=== PATIENT | female | born 1940 | race Caucasian/White ===

== ENCOUNTER → 2017-02-03 | Outpatient (CLI) | payer MEDICARE, OTHER ==
[~2017-02-03] MED LIST: ASPI81 PO; HYDR-3533 PO; LISI-363 PO; LOVA20TA PO; VITA100020 PO
[2017-02-03 09:19] LABS: ANION GAP 7 MEQ/L (5-15); AST (GOT) 20 U/L (15-37); BICARBONATE 30.3 MEQ/L (21.0-32.0); BLOOD UREA NITROGEN 12 MG/DL (7-18); CHLORIDE 98 MEQ/L (98-107); GLOMERULAR FILTRATION RATE 70 ML/MIN (>89); GLUCOSE,FASTING 86 MG/DL (74-99); POTASSIUM 4.1 MEQ/L (3.5-5.1); SODIUM (NA) 135 MEQ/L (136-145)
[2017-02-03 09:30] LABS: ALKALINE PHOSPHATASE 84 U/L (45-117); ALT (GPT) 23 U/L (10-53); HDL CHOLESTEROL 79.9 MG/DL (40.0-60.0); LDL CHOLESTEROL 87 MG/DL (0-99); TOTAL BILIRUBIN ADULT 0.7 MG/DL (0.2-1.0)
[2017-02-03 09:55] LABS: WESTERGREN SEDIMENTATION RATE 4 mm/hr (0-30)
[2017-02-03 10:08] LABS: AUTOMATED NEUTROPHIL # 3.9 TH/MM3 (1.8-7.7); BASOPHIL % 0.7 % (0.0-2.0); EOSINOPHIL # 0.9 TH/MM3 (0-0.4); EOSINOPHIL % 14.8 % (0.0-4.0); HEMO FLAGS DIFF FINAL; LYMPH % 12.9 % (9.0-44.0); LYMPHOCYTE # 0.8 TH/MM3 (1.0-4.8); MEAN CELL VOLUME 85.9 FL (80.0-100.0); MEAN CORPUSCULAR HEMOGLOBIN 29.5 PG (27.0-34.0); MEAN CORPUSCULAR HGB CONC 34.4 % (32.0-36.0); MONO % 8.3 % (0.0-8.0); NEUT % 63.3 % (16.0-70.0); PLATELET COUNT 237 TH/MM3 (150-450); RED BLOOD COUNT 4.66 MIL/MM3 (4.00-5.30); RED CELL DISTRIBUTION WIDTH 13.1 % (11.6-17.2); WHITE BLOOD COUNT 6.2 TH/MM3 (4.0-11.0)
[2017-02-03 16:57] LABS: HEMOGLOBIN A1a 1.2 %; HEMOGLOBIN A1b 1.5 %; HEMOGLOBIN LA1C 1.9 %; HEMOGLOBIN P3 3.7 %
== END ==
LOC: PLAB 07:13
PROVIDERS: ATTEND Family Medicine
DX: E78.5 Hyperlipidemia, unspecified (principal); I10 Essential (primary) hypertension
CPT/HCPCS: 36415; 80053; 80061; 83036; 84443; 85025; 85652; 86038

== ENCOUNTER → 2017-08-18 | Outpatient (CLI) | payer MEDICARE, OTHER ==
[2017-08-18 09:44] LABS: BASOPHIL # 0.1 TH/MM3 (0-0.2); EOSINOPHIL # 0.1 TH/MM3 (0-0.4); EOSINOPHIL % 2.8 % (0.0-4.0); HEMATOCRIT 38.9 % (35.0-46.0); HEMOGLOBIN 13.4 GM/DL (11.6-15.3); LYMPH % 24.7 % (9.0-44.0); LYMPHOCYTE # 1.2 TH/MM3 (1.0-4.8); MEAN CELL VOLUME 86.2 FL (80.0-100.0); MEAN CORPUSCULAR HEMOGLOBIN 29.8 PG (27.0-34.0); MEAN CORPUSCULAR HGB CONC 34.6 % (32.0-36.0); MEAN PLATELET VOLUME 8.6 FL (7.0-11.0); MONO % 8.7 % (0.0-8.0); MONOCYTE # 0.4 TH/MM3 (0-0.9); NEUT % 62.8 % (16.0-70.0); PLATELET COUNT 189 TH/MM3 (150-450); RED BLOOD COUNT 4.51 MIL/MM3 (4.00-5.30); RED CELL DISTRIBUTION WIDTH 13.1 % (11.6-17.2); WHITE BLOOD COUNT 4.9 TH/MM3 (4.0-11.0)
[2017-08-18 09:54] LABS: ALBUMIN 3.8 GM/DL (3.4-5.0); ALT (GPT) 21 U/L (10-53); AST (GOT) 17 U/L (15-37); BICARBONATE 28.8 MEQ/L (21.0-32.0); BLOOD UREA NITROGEN 14 MG/DL (7-18); CALCIUM 8.9 MG/DL (8.5-10.1); CHLORIDE 101 MEQ/L (98-107); CHOLESTEROL 203 MG/DL (120-200); CREATININE 0.76 MG/DL (0.50-1.00); GLOMERULAR FILTRATION RATE 74 ML/MIN (>89); GLUCOSE,FASTING 88 MG/DL (74-99); SODIUM (NA) 137 MEQ/L (136-145); TRIGLYCERIDES 99 MG/DL (42-150)
[2017-08-18 10:04] LABS: ALKALINE PHOSPHATASE 82 U/L (45-117); CHOLESTEROL/ HDL RATIO 2.41 RATIO; HDL CHOLESTEROL 84.1 MG/DL (40.0-60.0); LDL CHOLESTEROL 99 MG/DL (0-99); TOTAL BILIRUBIN ADULT 0.7 MG/DL (0.2-1.0); TOTAL PROTEIN 7.3 GM/DL (6.4-8.2)
== END ==
LOC: PLAB 06:55
PROVIDERS: ATTEND Family Medicine
DX: E78.5 Hyperlipidemia, unspecified (principal); I69.90 Unspecified sequelae of unspecified cerebrovascular disease; I10 Essential (primary) hypertension
CPT/HCPCS: 36415; 80053; 80061; 84443; 85025

== ENCOUNTER 2017-12-04 11:24 | Inpatient (IN) | payer MEDICARE, OTHER ==
[~2017-12-04] VITALS: Ht 162.6 cm; Wt 77.3 kg
[2017-12-04] VITALS (36 sets, daily range): BP systolic 121–160; BP diastolic 57–99; PULSE 104–137; RESP 14–42; TEMP 98.9–103.7; O2SAT 93–100
[2017-12-04] MEDS ORDERED: SODIUM CHLOR 0.9% 1000 ML INJ 1,000 ML IV SCH (11:26)
[2017-12-04] MEDS ORDERED: SODIUM CHLORIDE 0.9% FLUSH 10 ML FLUSH IV FLUSH PRN (11:30)
--- NOTE | 2017-12-04 11:43 | PD ---
HPI Chief Complaint: Altered mental status Time Seen by Provider: 11:26 Travel History International Travel<30 days: No Contact w/Intl Traveler<30days: No History of Present Illness HPI 77-year-old female patient presents to the ER today brought in by EMS, friend state that they last saw her at 7 PM last night, she was found down, disoriented , staring off to the left, not answering questions. I am not able to get much further history from her. She has a fever of 101 in the ER. I did not see any other obvious injuries. Modifying Factors: None Associated Signs & Symptoms: Altered mental status Risk Factors: Elderly PFSH Past Medical History Hx Anticoagulant Therapy: Yes (81 MG. ASA DAILY) Heart Rhythm Problems: No Cancer: No Cardiovascular Problems: No High Cholesterol: No Chest Pain: No Congestive Heart Failure: No Cerebrovascular Accident: Yes (TIA) Diabetes: No Endocrine: No Gastrointestinal Disorders: No Genitourinary: No Hiatal Hernia: No Hypertension: Yes Immune Disorder: No Implanted Vascular Access Dvce: No Musculoskeletal: No Neurologic: Yes (STROKE MAR 2014) Psychiatric: No Reproductive: No Respiratory: No Immunizations Current: No Thyroid Disease: No Past Surgical History AICD: No Body Medical Devices: breast augmentation Eye Surgery: Yes (catarcts) Gynecologic Surgery: Yes (vaginal delivery) Joint Replacement: No Pacemaker: No Other Surgery: Yes Social History Alcohol Use: Yes (2 BEERS /DAY) Tobacco Use: Yes (5 CIG DAY ) Substance Use: No Allergies-Medications (Allergen,Severity, Reaction): Coded Allergies: doxycycline (Unverified Allergy, Severe, 12/04/17) ALTERED MENTAL STATUS minocycline (Unverified Allergy, Severe, 12/04/17) ALTERED MENTAL STATUS tigecycline (Unverified Allergy, Severe, 12/04/17) ALTERED MENTAL STATUS Reported Meds & Prescriptions Reported Meds & Active Scripts Active Active Prescriptions or Reported Medications Unobtainable Review of Systems ROS Limitations: Altered Mental Status Physical Exam Exam Limitations: Altered Mental Status Narrative GENERAL: Well-developed elderly female patient currently in moderate distress. She is awake, alert, but fairly disoriented and not able to answer questions. SKIN: Focused skin assessment warm/dry. HEAD: Atraumatic. Normocephalic. EYES: Pupils equal and round. No scleral icterus. No injection or drainage. Staring to the left. ENT: No nasal bleeding or discharge. Mucous membranes pink and moist. NECK: Trachea midline. No JVD. CARDIOVASCULAR: Regular rate and rhythm. No murmur appreciated. RESPIRATORY: No accessory muscle use. Clear to auscultation. Breath sounds equal bilaterally. GASTROINTESTINAL: Abdomen soft, non-tender, nondistended. Hepatic and splenic margins not palpable. MUSCULOSKELETAL: No obvious deformities. No clubbing. No cyanosis. No edema. NEUROLOGICAL: Awake and alert, disoriented. Not able to follow commands or do further neurological testing h. PSYCHIATRIC: Disoriented, not able to give me history, poor judgment due to disorientation. Data Data Last Documented VS Vital Signs Date Time Temp Pulse Resp B/P (MAP) Pulse Ox O2 Delivery O2 Flow Rate FiO2 12/04/17 13:00 101.7 134 22 141/79 (99) 100 Nasal Cannula 2.00 Orders Orders Electrocardiogram (12/04/17 11:26) Ammonia (12/04/17 11:) Complete Blood Count With Diff (12/04/17 11:) Comprehensive Metabolic Panel (12/04/17 11:) Creatine Kinase (Cpk) (12/04/17 11:) Prothrombin Time / Inr (Pt) (12/04/17 11:) Act Partial Throm Time (Ptt) (12/04/17 11:) Troponin I (12/04/17:) Urinalysis - C+S If Indicated (12/04/17 11:26) Lactic Acid Sepsis Protocol (12/04/17 11:26) Blood Culture (12/04/17 11:) Chest, Single Ap (12/04/17 11:26) Ct Brain W/O Iv Contrast(Rout) (12/04/17 11:26) Blood Glucose (12/04/17 11:) Ecg Monitoring (12/04/17 11:) Iv Access Insert/Monitor (12/04/17 11:) Oximetry (12/04/17:) Urinary Catheter Insert/Apply (12/04/17 11:26) Sodium Chloride 0.9% Flush (Ns Flush) (12/04/17 11:30) Sodium Chlor 0.9% 1000 Ml Inj (Ns 1000 M (12/04/17 11:26) Drug Screen, Random Urine (12/04/17 11:26) Alcohol (Ethanol) (12/04/17 11:26) Influenzae A/B Antigen (12/04/17 11:26) Ceftriaxone Inj (Rocephin Inj) (12/04/17 11:44) Azithromycin Inj (Zithromax Inj) (12/04/17 11:44) Ct Thorax/ Chest W Iv Contrast (12/04/17 11:54) CKMB (12/04/17 11:34) CKMB% (12/04/17 11:34) Acetaminophen Supp (Tylenol Supp) (12/04/17 12:15) Iohexol 350 Inj (Omnipaque 350 Inj) (12/04/17 13:05) Heparin Inj (Heparin Inj) (12/04/17 13:30) Heparin Inj (Heparin Inj) (12/04/17 19:30) Heparin Inj (Heparin Inj) (12/04/17 19:30) Heparin-D5w 25,000 U/250 Ml (Heparin-D5w (12/04/17 14:00) Cbc No Diff, Includes Plts (12/07/17 06:00) Act Partial Throm Time (Ptt) (12/04/17 20:28) Occult Blood (Hemoccult) Stool (12/04/17 13:28) Aspirin Supp (Aspirin Supp) (12/04/17 13:45) Arterial Blood Gas (Abg) (12/04/17 13:50) Admit Order (Ed Use Only) (12/04/17 13:51) Labs Laboratory Tests Test 12/04/17 11:34 12/04/17 12:10 White Blood Count 15.9 TH/MM3 Red Blood Count 4.54 MIL/MM3 Hemoglobin 12.1 GM/DL Hematocrit 37.0 % Mean Corpuscular Volume 81.4 FL Mean Corpuscular Hemoglobin 26.7 PG Mean Corpuscular Hemoglobin Concent 32.8 % Red Cell Distribution Width 11.7 % Platelet Count 183 TH/MM3 Mean Platelet Volume 9.9 FL CBC Comment AUTO DIFF Differential Total Cells Counted 100 Neutrophils % (Manual) 82 % Band Neutrophils % 1 % Lymphocytes % 11 % Monocytes % 5 % Eosinophils % 1 % Neutrophils # (Manual) 13.2 TH/MM3 Differential Comment FINAL DIFF MANUAL Platelet Estimate NORMAL Platelet Morphology Comment NORMAL Prothrombin Time 11.7 SEC Prothromb Time International Ratio 1.2 RATIO Activated Partial Thromboplast Time 25.2 SEC Blood Urea Nitrogen 24 MG/DL Creatinine 0.75 MG/DL Random Glucose 128 MG/DL Total Protein 6.8 GM/DL Albumin 3.6 GM/DL Calcium Level 9.4 MG/DL Alkaline Phosphatase 91 U/L Aspartate Amino Transf (AST/SGOT) 51 U/L Alanine Aminotransferase (ALT/SGPT) 37 U/L Total Bilirubin 2.1 MG/DL Sodium Level 139 MEQ/L Potassium Level 3.7 MEQ/L Chloride Level 103 MEQ/L Carbon Dioxide Level 22.4 MEQ/L Anion Gap 14 MEQ/L Estimat Glomerular Filtration Rate 75 ML/MIN Lactic Acid Level 3.2 mmol/L Ammonia LESS THAN 10 MCMOL/L Total Creatine Kinase 223 U/L Creatine Kinase MB 14.2 NG/ML Creatine Kinase MB % 6.4 % Troponin I 8.67 NG/ML Ethyl Alcohol Level LESS THAN 3 MG/DL Urine Collection Type CLEAN CATCH Urine Color YELLOW Urine Turbidity CLEAR Urine pH 5.5 Urine Specific [place] GREATER/EQUAL 1.030 Urine Protein 100 mg/dL Urine Glucose (UA) NEG mg/dL Urine Ketones 40 mg/dL Urine Occult Blood TRACE Urine Nitrite NEG Urine Bilirubin NEG Urine Urobilinogen 0.2 MG/DL Urine Leukocyte Esterase NEG Urine RBC 0-3 /hpf Urine WBC 0-2 /hpf Urine Squamous Epithelial Cells 0-5 /hpf Urine Amorphous Sediment FEW Microscopic Urinalysis Comment CULT NOT INDICATED Urine Collection Time 12:10 Urine Opiates Screen NEG Urine Barbiturates Screen NEG Urine Amphetamines Screen NEG Urine Benzodiazepines Screen NEG Urine Cocaine Screen NEG Urine Cannabinoids Screen NEG MDM Medical Decision Making Medical Screen Exam Complete: Yes Emergency Medical Condition: Yes Medical Record Reviewed: Yes Interpretation(s) EKG shows sinus tachycardia rate 140 bpm with no signs of acute ST elevations or depressions. Laboratory Tests Test 12/04/17 11:34 12/04/17 12:10 White Blood Count 15.9 TH/MM3 (4.0-11.0) Mean Corpuscular Hemoglobin 26.7 PG (27.0-34.0) Neutrophils % (Manual) 82 % (16-70) Neutrophils # (Manual) 13.2 TH/MM3 (1.8-7.7) Prothrombin Time 11.7 SEC (9.8-11.6) Blood Urea Nitrogen 24 MG/DL (7-18) Random Glucose 128 MG/DL (74-106) Aspartate Amino Transf (AST/SGOT) 51 U/L (15-37) Total Bilirubin 2.1 MG/DL (0.2-1.0) Estimat Glomerular Filtration Rate 75 ML/MIN (>89) Lactic Acid Level 3.2 mmol/L (0.4-2.0) Ammonia LESS THAN 10 MCMOL/L Total Creatine Kinase 223 U/L (26-192) Creatine Kinase MB 14.2 NG/ML (0.5-3.6) Creatine Kinase MB % 6.4 % (0.0-4.0) Troponin I 8.67 NG/ML (0.02-0.05) Urine Protein 100 mg/dL (NEG-TRACE) Urine Ketones 40 mg/dL (NEG) Last [address] 12/04/17 1154 Signed Impressions: Service Date/Time: Monday, December 04, 2017 12:43 - CONCLUSION: Probable mild congestive failure with trace pleural effusions. No evidence for mass. Jean-Paul Hoffmann MD FACR Head CT 12/04/17 1126 Signed Impressions: Service Date/Time: Monday, December 04, 2017 12:37 - CONCLUSION: Stable brain appearance. No acute intracranial findings Anam Rojas MD Chest X-Ray 12/04/17 1126 Signed Impressions: Service Date/Time: Monday, December 04, 2017 11:27 - CONCLUSION: 1. Large central right hilar mass with volume loss. Contrasted CT chest recommended. Gideon Lin MD Differential Diagnosis Altered mental status: Metabolic issues versus dehydration versus sepsis versus acute intracranial injuries versus CVA Narrative Course Patient's lab work shows significant leukocytosis and initially her chest x-ray shows a questionable right mediastinal mass concerning for possible infiltrates , IV ceftriaxone and Zithromax was initiated as well as IV fluids out of concern for sepsis especially with her fevers. She was given Tylenol for fevers. CAT scan was ordered for further evaluation of the chest and did not show obvious infiltrates. CT the brain did not show any signs of acute intracranial processes. Lab work also returned showing elevated cardiac enzymes. EKG did not show any signs of ST changes. At this point, patient was given aspirin and heparin for concerns for non-ST elevation NC. Case was discussed with Dr. Meza of cardiology who would like her to be moved to the main hospital for possible further cardiology evaluation. Case was then discussed with Dr. Alcaraz who wanted me to get an ABG for evaluation of the altered mental status and considering that there is no clear source of sepsis. Aggregate critical care time was 45 minutes. Time to perform other separately billable procedures was not included in the critical care time. My time did not include minutes spent treating any other patients simultaneously or on activities that did not directly contribute to the patient's treatment. The services I provided to this patient were to treat and/or prevent clinically significant deterioration that could result in: ICH, septic shock, dysrhythmias , I provided critical care services requiring my management, as noted below: Chart data review, documentation time, medication orders and management, vital sign assessments/reviewing monitor data, ordering and reviewing lab tests, ordering and interpreting/reviewing x-rays and diagnostic studies, care of the patient and discussion of the patient with the admitting physicians. Procedures Procedure Narrative LUMBAR PUNCTURE: The patient was placed in the left lateral decubitus position. The lumbar area of the back was prepped with Betadine and sterilely draped. The L3 -- L4 interspace was infiltrated with 1% lidocaine plain. Number 20 gauge LP needle was placed in the interspace. Opening pressure deferred. Number 5 milliliters of clear CSF were obtained. Patient tolerated procedure well. Diagnosis Primary Impression: Altered mental status Additional Impressions: Severe sepsis Non-ST elevation NC (NSTEMI) Admitting Information Admitting Physician Requests: Admit Scripts Unable to Obtain Active Prescriptions or Reported Meds Oliver Silveira MD Dec 04, 2017 11:43
[2017-12-04 11:44] LABS: HEMOGLOBIN 12.1 GM/DL (11.6-15.3); MEAN CELL VOLUME 81.4 FL (80.0-100.0); MEAN CORPUSCULAR HEMOGLOBIN 26.7 PG (27.0-34.0); MEAN CORPUSCULAR HGB CONC 32.8 % (32.0-36.0); MEAN PLATELET VOLUME 9.9 FL (7.0-11.0); PLATELET COUNT 183 TH/MM3 (150-450); RED BLOOD COUNT 4.54 MIL/MM3 (4.00-5.30); RED CELL DISTRIBUTION WIDTH 11.7 % (11.6-17.2); WHITE BLOOD COUNT 15.9 TH/MM3 (4.0-11.0)
[2017-12-04] MEDS ORDERED: AZITHROMYCIN INJ 500 MG in SODIUM CHLOR 0.9% 250 ML INJ 250 ML IV STA (11:44)
[2017-12-04] MEDS ORDERED: cefTRIAXone INJ 2,000 MG in SODIUM CHLORIDE 0.9% INJ 100 ML IV STA (11:44)
--- NOTE | 2017-12-04 11:45 | RADRPT ---
EXAM DATE/TIME: 12/04/2017 11:27 [facility] COMPARISON: No previous studies available for comparison. INDICATIONS : Short of breath, altered mental status. MEDICAL HISTORY : Hypertension. Stroke. Smoker. SURGICAL HISTORY : ORIF humerus. ENCOUNTER: Initial ACUITY: 1 day PAIN SCORE: Non-responsive. LOCATION: chest FINDINGS: A single view of the chest demonstrates right hilar mass. There is volume loss on the right with atel ectasis in the right upper lobe. Left lung clear. Heart mildly enlarged The cardiomediastinal contour s are unremarkable. Osseous structures are intact. CONCLUSION: 1. Large central right hilar mass with volume loss. Contrasted CT chest recommended. Gideon Lin MD on December 04, 2017 at 11:42 Board Certified Radiologist. This report was verified electronically.
[2017-12-04 11:52] LABS: CHLORIDE 103 MEQ/L (98-107); SODIUM (NA) 139 MEQ/L (136-145)
[2017-12-04 11:55] LABS: CALCIUM 9.4 MG/DL (8.5-10.1)
[2017-12-04 11:56] LABS: ALBUMIN 3.6 GM/DL (3.4-5.0); BICARBONATE 22.4 MEQ/L (21.0-32.0); BLOOD UREA NITROGEN 24 MG/DL (7-18); GLUCOSE,RANDOM 128 MG/DL (74-106); INTERNATIONAL NORMALIZED RATIO 1.2 RATIO; PROTHROMBIN TIME - PATIENT 11.7 SEC (9.8-11.6)
[2017-12-04 11:59] LABS: ALT (GPT) 37 U/L (10-53); AST (GOT) 51 U/L (15-37); CREATININE 0.75 MG/DL (0.50-1.00); GLOMERULAR FILTRATION RATE 75 ML/MIN (>89)
[2017-12-04 12:00] LABS: TOTAL PROTEIN 6.8 GM/DL (6.4-8.2)
[2017-12-04 12:01] LABS: LACTIC ACID SEPSIS PROTOCOL 3.2 mmol/L (0.4-2.0)
[2017-12-04 12:02] LABS: ALKALINE PHOSPHATASE 91 U/L (45-117)
[2017-12-04 12:07] LABS: TOTAL BILIRUBIN ADULT 2.1 MG/DL (0.2-1.0)
[2017-12-04 12:09] LABS: TROPONIN I 8.67 NG/ML (0.02-0.05)
[2017-12-04 12:15] LABS: BANDS 1 % (0-6); LYMPHOCYTES 11 % (9-44); MONOCYTES 5 % (0-8); NEUTROPHIL # MANUAL DIFF 13.2 TH/MM3 (1.8-7.7); POLYS (SEG NEUTROPHILS) 82 % (16-70)
[2017-12-04] MEDS ORDERED: ACETAMINOPHEN 325 MG SUPP RECTAL ONE (12:15)
[2017-12-04 12:17] LABS: BLOOD, URINE TRACE (NEG); GLUCOSE,URINE NEG (NEG); KETONE, URINE 40 mg/dL (NEG); NITRITE,URINE NEG (NEG); PH, URINE 5.5 (5.0-8.5); URINE COLOR YELLOW (YELLW/STRAW); URINE LEUKOCYTE ESTERASE NEG (NEG)
[2017-12-04 12:20] LABS: BILIRUBIN, URINE NEG (NEG)
[2017-12-04 12:22] LABS: AMORPHOUS SEDIMENT, URINE FEW; RBC, URINE 0-3 /hpf (0-3); SQUAMOUS EPITHELIAL CELL URINE 0-5 /hpf (0-5); WBC, URINE 0-2 /hpf (0-5)
[2017-12-04] MEDS ORDERED: IOHEXOL 350 MG/ML 10 ML VIAL (for RAD DIAG) IVCONTRAST ONE (13:05)
--- NOTE | 2017-12-04 13:11 | RADRPT ---
EXAM DATE/TIME: 12/04/2017 12:43 [facility] COMPARISON: CHEST SINGLE AP, December 04, 2017, 11:27. INDICATIONS : Abnormal chest x-ray. Evaluate for a mass. IV CONTRAST: 60 cc Omnipaque 350 (iohexol) IV RADIATION DOSE: 7.39 CTDIvol (mGy) MEDICAL HISTORY : Hypertension. Stroke Cerebrovascular disease. SURGICAL HISTORY : None. ENCOUNTER: Initial ACUITY: 1 day PAIN SCALE: Non-responsive LOCATION: chest TECHNIQUE: Volumetric scanning of the chest was performed. Using automated exposure control and adjustment of t he mA and/or kV according to patient size, radiation dose was kept as low as reasonably achievable to obtain optimal diagnostic quality images. DICOM format image data is available electronically for review and comparison. Follow-up recommendations for detected pulmonary nodules are based at a minimum on nodule size and pa tient risk factors according to Fleischner Society Guidelines. FINDINGS: Small bilateral pleural effusions are evident with moderate cardiomegaly. There is no axillary adenopathy or mediastinal adenopathy. Abnormality on chest radiographs is cause d by scoliosis and rotation. The moderate coronary calcifications evident Upper abdominal contents are unremarkable. CONCLUSION: Probable mild congestive failure with trace pleural effusions. No evidence for mass. Jean-Paul Hoffmann MD FACR on December 04, 2017 at 13:06 Board Certified Radiologist. This report was verified electronically.
--- NOTE | 2017-12-04 13:13 | RADRPT ---
EXAM DATE/TIME: 12/04/2017 12:37 [facility] COMPARISON: CT BRAIN W/O CONTRAST, April 12, 2014, 9:16. INDICATIONS : Altered mental status. RADIATION DOSE: 37.09 CTDIvol (mGy) MEDICAL HISTORY : Stroke. Cerebrovascular disease. Hypertension. SURGICAL HISTORY : None. ENCOUNTER: Initial ACUITY: 1 day PAIN SCALE: Non-responsive LOCATION: cranial TECHNIQUE: Multiple contiguous axial images were obtained of the head. Using automated exposure control and adj ustment of the mA and/or kV according to patient size, radiation dose was kept as low as reasonably a chievable to obtain optimal diagnostic quality images. DICOM format image data is available electro nically for review and comparison. FINDINGS: CEREBRUM: The ventricles are normal for age. No evidence of midline shift, mass lesion, hemorrhage or acute in farction. No extra-axial fluid collections are seen. POSTERIOR FOSSA: The cerebellum and brainstem are intact. The 4th ventricle is midline. The cerebellopontine angle i s unremarkable. EXTRACRANIAL: The visualized portion of the orbits is intact. SKULL: The calvaria is intact. No evidence of skull fracture. CONCLUSION: Stable brain appearance. No acute intracranial findings Anam Rojas MD on December 04, 2017 at 13:04 Board Certified Radiologist. This report was verified electronically.
[2017-12-04] MEDS ORDERED: HEPARIN SODIUM - IV 10,000 UNITS/10 ML VIAL IV PUSH ONE (13:30)
[2017-12-04] MEDS ORDERED: ASPIRIN 300 MG SUPP RECTAL ONE (13:45)
[2017-12-04] MEDS ORDERED: CHLORHEXIDINE GLUCONATE 2 % 1 PACK (2 CLOTHS) TOP PRN (14:00)
[2017-12-04] MEDS ORDERED: BISACODYL 10 MG SUPP RECTAL PRN (14:00)
[2017-12-04] MEDS ORDERED: NURSING INFORMATION XX SCH (14:00)
[2017-12-04] MEDS: INSULIN NovoLIN REGULAR SUPPLEMENTAL SCALE SQ SCH ×3 (14:00→22:00)
[2017-12-04] MEDS ORDERED: SENNOSIDES 8.6 MG TAB PO PRN (14:00)
[2017-12-04] MEDS ORDERED: LACTULOSE SYRUP 20 GM/30 ML CUP PO PRN (14:00)
[2017-12-04] MEDS ORDERED: MAGNESIUM HYDROXIDE SUSP 30 ML CUP PO PRN (14:00)
[2017-12-04] MEDS ORDERED: HEPARIN-D5W 25,000 U/250 ML 250 ML IV SCH (14:00)
[2017-12-04] MEDS ORDERED: GLUCAGON 1 MG/ML VIAL OTHER PRN (14:00)
[2017-12-04] MEDS ORDERED: DEXTROSE 50% IN WATER 50 ML VIAL(D50) IV PUSH PRN (14:00)
[2017-12-04] MEDS ORDERED: SODIUM CHLOR 0.9% 1000 ML INJ 1,000 ML IV ONE (14:15)
[2017-12-04] MEDS: SODIUM CHLOR 0.9% 1000 ML INJ 1,000 ML IV SCH ×2 (15:08→17:43)
[2017-12-04] MEDS: VANCOMYCIN INJ 1,000 MG in SODIUM CHLOR 0.9% 250 ML INJ 250 ML IV SCH (15:09)
[2017-12-04 15:30] LABS: RBC TUBE #4 1 /MM3; SUPERNATE COLOR TUBE #1 CLEAR (CLEAR); WBC TUBE #4 0 /MM3 (0-10)
[2017-12-04] MEDS ORDERED: ACETAMINOPHEN 1000 MG/100 ML 65 ML IV ONE (15:30)
[2017-12-04 16:44] LABS: CSF LYMPHOCYTES 0 %; CSF NEUTROPHILS 0 %
--- NOTE | 2017-12-04 16:57 | HHI.HP ---
[facility] Service Critical Care Medicine Primary Care Physician Non-Staff Admission Diagnosis severe sepsis/NSTEMI Diagnosis: (1) Acute metabolic encephalopathy Diagnosis: Principal (2) Altered mental status Diagnosis: Principal (3) Severe sepsis Diagnosis: Principal (4) Non-ST elevation ND (NSTEMI) Diagnosis: Principal (5) Cardiomyopathy Diagnosis: Principal (6) Lactic acidemia Diagnosis: Principal (7) Hypertension Diagnosis: Secondary (8) Cerebrovascular accident (stroke) Chief Complaint: AMS, High fever NSTEMI Travel History International Travel<30 Days: No Contact w/Intl Traveler <30 Da: No Sepsis Criteria SIRS Criteria (2 or more): Temp > 100.9 or < 96.8, WBC > 42064, < 4000 or > 10 % bands Sepsis Criteria (SIRS+source): Infect source susp/known Severe Sepsis (+one): Lactate >2 Criteria Outcome: Meets severe sepsis criteria History of Present Illness 77-year-old female who is apparently very active at baseline, with past medical history significant for hypertension and previous TIA, tobacco abuse. She was seen last normal yesterday night at 7 PM. Her friends checked on her today morning and was found down, disoriented, staring off to the left, not answering questions. I am not able to get much further history from her. She has a fever of 101 in the ER, initially and then spiked to 103.7. ER workup included a CT scan of head which was negative for acute findings. Lab work showed a white count of 15.9 with left shift, lactic acid was 3.4, troponin was elevated at 8.7. Cardiology Dr. Meza was contacted aspirin was given patient was recommended to be started on IV heparin but was held for LP. Lumbar puncture was unremarkable nevertheless patient was started on meningitic doses of vancomycin and Rocephin. I have added ampicillin 2 g IV every 4 hours, and acyclovir 680 mg IV every 8 hours. I evaluated the patient in the ICU. Patient is severely altered tachypneic in moderate distress. Patient is aphasic with left gaze preference diminished movements of the right upper and lower extremity. A bedside echo shows reduced EF approximately 20-25%, global hypokinesis. Patient has no history of cardiomyopathy to my knowledge. At this time his stroke cannot be ruled out. Stat MRI MRA had been ordered. Due to altered mentation tachypnea and lack of airway protection patient was intubated and placed on mechanical ventilation Review of Systems ROS Limitations: Altered Mental Status Past Family Social History Allergies: Coded Allergies: doxycycline (Unverified Allergy, Severe, 12/04/17) ALTERED MENTAL STATUS minocycline (Unverified Allergy, Severe, 12/04/17) ALTERED MENTAL STATUS tigecycline (Unverified Allergy, Severe, 12/04/17) ALTERED MENTAL STATUS Past Medical History Hypertension Previous CVA/TIA Tobacco abuse Past Surgical History Cataract surgery Breast augmentation Reported Medications Unable to obtain Active Ordered Medications Reviewed Family History Unable to obtain due to altered mentation Social History Per ER notes drinks 2 beers daily, smokes 5 cigarettes daily Physical Exam Vital Signs Vital Signs Date Time Temp Pulse Resp B/P (MAP) Pulse Ox O2 Delivery O2 Flow Rate FiO2 12/04/17 16:15 12/04/17 15:30 130 20 158/81 (106) 96 Nasal Cannula 2.00 12/04/17 15:30 128 18 96 Nasal Cannula 2.00 12/04/17 15:00 126 20 139/93 (108) 95 Nasal Cannula 2.00 12/04/17 14:30 128 18 121/76 (91) 97 Nasal Cannula 2.00 12/04/17 14:15 103.7 12/04/17 14:00 133 20 133/89 (104) 95 Nasal Cannula 2.00 12/04/17 13:30 128 22 96 Nasal Cannula 2.00 12/04/17 13:30 132 18 149/89 (109) 98 Nasal Cannula 2.00 12/04/17 13:00 101.7 134 22 141/79 (99) 100 Nasal Cannula 2.00 12/04/17 12:00 101.4 136 28 149/78 (101) 95 Nasal Cannula 2.00 12/04/17 11:30 101.4 136 28 149/78 (101) 95 12/04/17 11:30 95 Room Air Physical Exam GENERAL: Disheveled elderly female patient currently in moderate distress, aphasic, left gaze preference. SKIN: Dry HEAD: Atraumatic. Normocephalic. EYES: Pupils equal and round, reactive. No scleral icterus. Left gaze preference ENT: No nasal bleeding or discharge. Mucous membranes pink and moist. NECK: Trachea midline. No JVD. CARDIOVASCULAR: Tachycardic rate and rhythm. No murmur appreciated. Bedside echo shows EF approximately 25% on my eval, global hypokinesis RESPIRATORY: Using accessory muscle, tachypneic. Bilateral coarse breath sounds GASTROINTESTINAL: Abdomen soft, non-tender, nondistended. MUSCULOSKELETAL: No obvious deformities. No clubbing. No cyanosis. No edema. NEUROLOGICAL: Eyes are spontaneously open with left gaze preference. Spontaneously moving extremities minimal movements of the right upper extremity. Did not follow commands, aphasic. Withdraws extremities to painful stimuli, except minimal withdrawal of the right upper extremity Laboratory Laboratory Tests Test 12/04/17 11:34 12/04/17 12:10 12/04/17 14:03 12/04/17 14:30 White Blood Count 15.9 Red Blood Count 4.54 Hemoglobin 12.1 Hematocrit 37.0 Mean Corpuscular Volume 81.4 Mean Corpuscular Hemoglobin 26.7 Mean Corpuscular Hemoglobin Concent 32.8 Red Cell Distribution Width 11.7 Platelet Count 183 Mean Platelet Volume 9.9 CBC Comment AUTO DIFF Differential Total Cells Counted 100 Neutrophils % (Manual) 82 Band Neutrophils % 1 Lymphocytes % 11 Monocytes % 5 Eosinophils % 1 Neutrophils # (Manual) 13.2 Differential Comment FINAL DIFF MANUAL Platelet Estimate NORMAL Platelet Morphology Comment NORMAL Prothrombin Time 11.7 Prothromb Time International Ratio 1.2 Activated Partial Thromboplast Time 25.2 Blood Urea Nitrogen 24 Creatinine 0.75 Random Glucose 128 Total Protein 6.8 Albumin 3.6 Calcium Level 9.4 Alkaline Phosphatase 91 Aspartate Amino Transf (AST/SGOT) 51 Alanine Aminotransferase (ALT/SGPT) 37 Total Bilirubin 2.1 Sodium Level 139 Potassium Level 3.7 Chloride Level 103 Carbon Dioxide Level 22.4 Anion Gap 14 Estimat Glomerular Filtration Rate 75 Lactic Acid Level 3.2 2.4 Ammonia LESS THAN 10 Total Creatine Kinase 223 Creatine Kinase MB 14.2 Creatine Kinase MB % 6.4 Troponin I 8.67 Ethyl Alcohol Level LESS THAN 3 Urine Collection Type CLEAN CATCH Urine Color YELLOW Urine Turbidity CLEAR Urine pH 5.5 Urine Specific [place] GREATER/EQUAL 1.030 Urine Protein 100 Urine Glucose (UA) NEG Urine Ketones 40 Urine Occult Blood TRACE Urine Nitrite NEG Urine Bilirubin NEG Urine Urobilinogen 0.2 Urine Leukocyte Esterase NEG Urine RBC 0-3 Urine WBC 0-2 Urine Squamous Epithelial Cells 0-5 Urine Amorphous Sediment FEW Microscopic Urinalysis Comment CULT NOT INDICATED Urine Collection Time 12:10 Urine Opiates Screen NEG Urine Barbiturates Screen NEG Urine Amphetamines Screen NEG Urine Benzodiazepines Screen NEG Urine Cocaine Screen NEG Urine Cannabinoids Screen NEG Blood Gas Puncture Site RT RADIAL Blood Gas Patient Temperature 98.6 Blood Gas HCO3 18 Blood Gas Base Excess -5.0 Blood Gas Oxygen Saturation 95 Arterial Blood pH 7.50 Arterial Blood Partial Pressure CO2 23 Arterial Blood Partial Pressure O2 91 Arterial Blood Oxygen Content 15.2 Arterial Blood Carboxyhemoglobin 1.9 Arterial Blood Methemoglobin 0.8 Blood Gas Hemoglobin 11.3 Oxygen Delivery Device NASAL CANNULA Blood Gas Liter Flow 2 Test 12/04/17 14:50 12/04/17 15:20 CSF Volume (Tube 1) 1.0 CSF Supernatant Color (tube 1) CLEAR CSF Gross Blood (Tube 1) 0 CSF Volume (Tube 2) 0.8 CSF Supernatant Color (tube 2) CLEAR CSF Gross Blood (Tube 2) 0 CSF Volume (Tube 3) 1.0 CSF Supernatant Color (tube 3) CLEAR CSF Gross Blood (Tube 3) 0 CSF Volume (Tube 4) 1.0 CSF Supernatant Color (tube 4) CLEAR CSF Gross Blood (Tube 4) 0 CSF WBC (Tube 4) 0 CSF RBC (Tube 4) 1 CSF Neutrophils 0 CSF Lymphocytes 0 CSF Glucose 53 CSF Total Protein 49.0 Date/Time Source Procedure Growth Status 12/04/17 11:38 Blood Peripheral Aerobic Blood Culture Pending Received 12/04/17 11:38 Blood Peripheral Anaerobic Blood Culture Pending Received 12/04/17 14:50 Cerebral Spinal Fluid Lumbar Puncture Gram Stain - Final Resulted 12/04/17 14:50 Cerebral Spinal Fluid Lumbar Puncture CSF Culture Pending Resulted 12/04/17 11:40 Nasal Washing Influenza Types A,B Antigen (HARIKA) - Final NEGATIVE FOR FLU A AND B ANTIGEN.... Complete Result Diagram: 12/04/17 1134 12/04/[address] of the head negative for acute findings CT chest mild pulmonary vascular congestion Septic Shock Reassessment Septic shock perfusion: reassessment completed Caprini VTE Risk Assessment Caprini VTE Risk Assessment: Mod/High Risk (score >= 2) Caprini Risk Assessment Model Point Value = 1 Point Value = 2 Point Value = 3 Point Value = 5 Age 41-60 Minor surgery BMI > 25 kg/m2 Swollen legs Varicose veins or History of unexplained or recurrent spontaneous Oral contraceptives or hormone replacement Sepsis (< 1 month) Serious lung disease, including pneumonia (< 1 month) Abnormal pulmonary function Acute myocardial infarction Congestive heart failure (< 1 month) History of inflammatory bowel disease Medical patient at bed rest Age 61-74 Arthroscopic surgery Major open surgery (> 45 min) Laparoscopic surgery (> 45 min) Malignancy Confined to bed (> 72 hours) Immobilizing plaster cast Central venous access Age >= 75 History of VTE Family history of VTE Factor V Leiden Prothrombin [id number] Lupus anticoagulant Anticardiolipin antibodies Elevated serum homocysteine Heparin-induced thrombocytopenia Other congenital or acquired thrombophilia Stroke (< 1 month) Elective arthroplasty Hip, pelvis, or leg fracture Acute spinal cord injury (< 1 month) Prophylaxis Regimen Total Risk Factor Score Risk Level Prophylaxis Regimen 0-1 Low Early ambulation 2 Moderate Order ONE of the following: *Sequential Compression Device (SCD) *Heparin 5000 units SQ BID 3-4 Higher Order ONE of the following medications: *Heparin 5000 units SQ TID *Enoxaparin/Lovenox 40 mg SQ daily (WT < 150 kg, CrCl > 30 mL/min) *Enoxaparin/Lovenox 30 mg SQ daily (WT < 150 kg, CrCl > 10-29 mL/min) *Enoxaparin/Lovenox 30 mg SQ BID (WT < 150 kg, CrCl > 30 mL/min) AND/OR *Sequential Compression Device (SCD) 5 or more Highest Order ONE of the following medications: *Heparin 5000 units SQ TID (Preferred with Epidurals) *Enoxaparin/Lovenox 40 mg SQ daily (WT < 150 kg, CrCl > 30 mL/min) *Enoxaparin/Lovenox 30 mg SQ daily (WT < 150 kg, CrCl > 10-29 mL/min) *Enoxaparin/Lovenox 30 mg SQ BID (WT < 150 kg, CrCl > 30 mL/min) AND *Sequential Compression Device (SCD) Assessment and Plan Assessment and Plan NEURO: Acute encephalopathy Altered mentation/high fever rule out meningitis/encephalitis Rule out acute CVA -Intubated for airway protection and to facilitate studies, propofol for sedation and vent synchrony -CT of the head stat negative acute findings -MRI MRA stat to rule out acute CVA -EEG if MRI negative for stroke -Continue meningitic doses of antibiotics vancomycin, Rocephin. Added ampicillin , acyclovir RESP: Acute respiratory failure from lack of airway protection Probable COPD -Intubated for airway protection. ACV 16/500/50%/5 -DuoNeb every 4 hours scheduled and as needed, ventilator bundle -Sputum culture -Meningitic antibiotic should cover for any pulmonary infection CV: NSTEMI Cardiomyopathy, reduced EF Possible viral myocarditis -Normal saline 2L bolus and 84 ml per hour -Bedside echo shows EF approximately 25%, global hypokinesis -Official echo pending at this time -Started on metoprolol 25 mg p.o. every 12, continue aspirin -Avoid heparin at least for 24 hours post LP -Cardiology consulted, Dr. Meza GI: -NPO, Famotidine : -Monitor renal function closely. Baca catheter. ID: -Continue meningitic doses of antibiotics vancomycin, Rocephin, add ampicillin, acyclovir -F/u lumbar puncture cultures blood culture urine culture and sputum culture. No indication for acute infection on LP -Infectious diseases consult HEME: -Monitor CBC, CMP, coags ENDO: -Electrolyte replacement protocol PROPH: -Bilateral lower extremity SCDs. Avoid chemical DVT prophylaxis until at least 24 hours. SCDs/KRAIG LINES: -Utilize peripheral IVs, central line if needed CC time 60 min excluding procedures excluding procedures Code Status Full Discussed Condition With Dr. Meza Problem Qualifiers (1) Altered mental status: (2) Hypertension: Qualified Codes: I10 - Essential (primary) hypertension (3) Cerebrovascular accident (stroke): Chavo Mendieta MD Dec 04, 2017 16:57
[2017-12-04] MEDS ORDERED: ETOMIDATE 40 MG/20 ML VIAL ONE (17:13)
[2017-12-04] MEDS ORDERED: MIDAZOLAM HCL 5 MG/ML VIAL (1 ML) ONE (17:14)
[2017-12-04] MEDS ORDERED: SODIUM BICARBONATE 8.4% INJ 50 MEQ/50 ML SYR IV PUSH ONE (17:30)
[2017-12-04] MEDS: RESP: ALBUTEROL 2.5 MG/IPRATROPIUM 0.5 MG NEB (SCH) INH ×3 (17:30→23:21)
--- NOTE | 2017-12-04 17:38 | PD.PROCEDR ---
Procedure Note Procedure Emergency intubation due to lack of airway protection INTUBATION: The patient was put in optimal position for the procedure. Rapid sequence intubation was initiated by me using 20 milligrams of etomidate IV and 5 milligrams of Versed IV, 50 mg IV Rocuronium. DL with MAC 4 blade grade 2 view. The patient was intubated with a 7.5 cuffed endotracheal tube. Large amount of thick yellow secretions removed from the glottic opening at the time of intubation. The tube placement was confirmed by visualization of the tube and balloon passing through the cords, capnometry and subsequent chest x-ray. Breath sounds were equal and well aerated bilaterally postintubation. No breath sounds over stomach. Patient tolerated procedure well. Chavo Mendieta MD Dec 04, 2017 17:38
[2017-12-04] MEDS: THIAMINE INJ 100 MG in SODIUM CHLORIDE 0.9% INJ 100 ML IV SCH (17:44)
[2017-12-04] MEDS: ACYCLOVIR IV SCH (17:44)
[2017-12-04] MEDS: SODIUM CHLORIDE 0.9% IV SCH (17:44)
[2017-12-04] MEDS: PROPOFOL 1000 MG/100 ML INJ 100 ML IV PRN ×2 (17:45→21:39)
--- NOTE | 2017-12-04 17:45 | RADRPT ---
EXAM DATE/TIME: 12/04/2017 17:29 [place] COMPARISON: CHEST SINGLE AP, December 04, 2017, 11:27. INDICATIONS : Post intubation. MEDICAL HISTORY : None. SURGICAL HISTORY : None. ENCOUNTER: Initial ACUITY: 1 day PAIN SCORE: Non-responsive. LOCATION: Bilateral chest FINDINGS: ET in good position. Lungs hyperinflated. Compensated cardiomegaly without failure pneumothorax or pleural effusion. CONCLUSION: ET in good position. Moderate hyperinflation. Jean-Paul Hoffmann MD FACR on December 04, 2017 at 17:42 Board Certified Radiologist. This report was verified electronically.
--- NOTE | 2017-12-04 18:00 | MB ---
cc: Rich Meza MD DATE: 12/04/2017 REASON FOR CONSULTATION: Evaluation of increased troponin. HISTORY OF PRESENT ILLNESS: This is a severely ill 77-year-old female who was admitted through the ER in [place]. Apparently she was found disoriented, staring to the left and not responding to questions. She is febrile. She has a history apparently of previous stroke and takes 1 aspirin a day. The previous stroke was March 2014. She has no cardiac history that we are aware of. PAST MEDICAL HISTORY, SURGICAL HISTORY: Apparently includes breast augmentation and vaginal delivery. SOCIAL HISTORY: Chart reviewed, listed she has a history of 2 beers a day and 5 cigarettes a day. ALLERGIES: DOXYCYCLINE. MINOCYCLINE. TIGECYCLINE. PHYSICAL EXAMINATION: GENERAL: An elderly, white female in moderate distress. She has a fixed gaze to the left. HEENT: Otherwise unremarkable. There is no JVD. NECK: No carotid bruits. CHEST: Clear anteriorly. CARDIAC EXAM: S1, S2. Regular rate and rhythm. I do not appreciate murmurs or gallops. ABDOMEN: Soft, nontender. EXTREMITIES: No clubbing, cyanosis or edema. Pulses are intact. DATA: EKG shows sinus tachycardia without any acute ST-T wave changes. LABORATORY DATA: Her hematocrit is 37. Creatinine is 0.75. Lactic acid is elevated. CPK-MB and troponin are both elevated. Her chest CT is showing probable mild CHF with trace pleural effusions. The chest x-ray shows a large right central hilar mass. This was determined to be due to scoliosis and rotation. There is moderate coronary artery calcification. IMPRESSION AND PLAN: Suspect a type 2 non-ST segment elevation myocardial infarction secondary to her other underlying medical problems. She does not have any acute ST-T wave changes. She may have an acute cerebrovascular accident. Dr. Mendieta is in the process of getting intubated and getting an MRI. Currently, she is on heparin. If she is stable post-intubation, Dr. Mendieta and I agreed to start her on some beta bishnu continue her aspirin. 2-D echo Doppler is ordered. Further therapy to be determined. MD ANNE Hassan/DANIA , 05:17 PM , 05:59 PM
[2017-12-04] MEDS ORDERED: HEPARIN SODIUM - IV 10,000 UNITS/10 ML VIAL IV PUSH PRN ×2 (19:30)
--- NOTE | 2017-12-04 19:42 | PD.ID.CON ---
History of Present Illness Service Infectious disease Consult Requested By Dr. Mendieta Reason for Consult Evaluation and management of possible meningitis Primary Care Physician Non-Staff Diagnoses: History of Present Illness Ms. Rausch is a 77-year-old female who reportedly is very active at baseline. The nurse taking care of the patient reports to me the patient was expected to be at the gym and when she did not show up of friends into the home and was found down, disoriented, staring off to the left not answering any questions. Her past medical history significant for hypertension, previous TIA and tobacco abuse. Patient was reportedly seen normal at 7 PM the night before when she was attending a car show. When in the emergency room her temperature was 101 and it spiked 203.7. ER workup included a CT scan which is negative for acute findings. Lab workup showed WBC 15.9 with a leftward shift, elevated lactic acid at 3.4 and an elevated troponin and 8.7. Cardiology was consulted and patient was given aspirin and recommended that IV heparin be started. IV heparin was not started because of lumbar puncture. Upon review of the numbers for lumbar puncture appears unremarkable with the minimal elevation of total protein. Patient had a sepsis workup initiated and started on meningitis doses for vancomycin and Rocephin, ampicillin as well as acyclovir IV. All the lumbar puncture studies as well as blood cultures are pending at the present time. Patient was found to be a phasic with a leftward gaze and diminished movements of the right upper and lower extremities. Patient was intubated for airway protection. A 2D echo done showed 20-25% EF with global hypokinesis. No prior history of any seizure disorder per review of records. No reported history of drug abuse. Infectious disease is consulted for evaluation and management of possible meningitis. Review of Systems ROS Limitations: Intubated Past Family Social History Allergies: Coded Allergies: doxycycline (Unverified Allergy, Severe, 12/04/17) ALTERED MENTAL STATUS minocycline (Unverified Allergy, Severe, 12/04/17) ALTERED MENTAL STATUS tigecycline (Unverified Allergy, Severe, 12/04/17) ALTERED MENTAL STATUS Past Medical History Hypertension Previous CVA/TIA Tobacco abuse Past Surgical History Cataract surgery Breast augmentation Reported Medications Reported Meds & Active Scripts Active Active Prescriptions or Reported Medications Unobtainable Active Ordered Medications Current Medications Medications (Trade) Dose Ordered Sig/April Route Start Time Stop Time Status Last Admin (NS Flush) 2 ml UNSCH PRN IV FLUSH 12/04/17 11:30 (Duoneb Neb) 1 ampule Q4HR NEB INH 12/04/17 16:00 12/04/17 17:30 (Duoneb Neb) 1 ampule Q2HR NEB PRN INH 12/04/17 14:00 Miscellaneous Information 1 Q361D XX 12/04/17 14:00 (Chlorhexidine 2% Cloth) 3 pack Taper DAILY@04 TOP 12/05/17 04:00 12/01/18 03:59 (Chlorhexidine 2% Cloth) 3 pack UNSCH PRN TOP 12/04/17 14:00 (Mera-Colace) 1 tab BID PO 12/04/17 21:00 (Milk Of Magnesia Liq) 30 ml Q12H PRN PO 12/04/17 14:00 (Senokot) 17.2 mg Q12H PRN PO 12/04/17 14:00 (Dulcolax Supp) 10 mg DAILY PRN RECTAL 12/04/17 14:00 (Lactulose Liq) 30 ml DAILY PRN PO 12/04/17 14:00 Vancomycin HCl 1000 mg/Sodium Chloride 250 ml @ 250 mls/hr Q12H IV 12/04/17 15:00 12/04/17 15:09 (D50w (Vial) Inj) 50 ml UNSCH PRN IV PUSH 12/04/17 14:00 (Glucagon Inj) 1 mg UNSCH PRN OTHER 12/04/17 14:00 (NovoLIN R SUPPLEMENTAL SCALE) 1 Q4H SQ 12/04/17 14:00 Sodium Chloride 1,000 ml @ 84 mls/hr [id number] IV 12/04/17 14:00 12/04/17 15:08 Ceftriaxone Sodium 2000 mg/ Sodium Chloride 100 ml @ 200 mls/hr Q12H IV 12/05/17 00:00 (Lopressor) 25 mg Q12HR PO 12/04/17 21:00 (Pepcid) 20 mg Q12HR PO 12/04/17 21:00 Ampicillin Sodium 2000 mg/Sodium Chloride 100 ml @ 400 mls/hr Q4H IV 12/04/17 16:00 Acyclovir Sodium 680 mg/Sodium Chloride 100 ml @ 100 mls/hr Q8H IV 12/04/17 18:00 12/04/17 17:44 Thiamine HCl 100 mg/Sodium Chloride 101 ml @ 101 mls/hr DAILY@1800 IV 12/04/17 18:00 12/04/17 17:44 (Peridex 0.12% Liq) 15 ml BID@08,20 MT 12/04/17 20:00 Propofol 100 ml @ 2.04 mls/hr TITRATE PRN IV 12/04/17 17:30 12/04/17 17:45 Family History Could not be obtained Social History Per ER notes drinks 2 beers daily, smokes 5 cigarettes daily Physical Exam Vital Signs Vital Signs Date Time Temp Pulse Resp B/P (MAP) Pulse Ox O2 Delivery O2 Flow Rate FiO2 12/04/17 19:28 100 40 12/04/17 19:00 102.8 127 30 147/80 (102) 100 12/04/17 18:30 126 29 155/74 (101) 100 12/04/17 18:10 128 31 135/99 (111) 100 12/04/17 18:00 130 12/04/17 17:44 130 21 155/97 (116) 100 12/04/17 17:40 129 24 149/81 (103) 100 12/04/17 17:38 129 21 153/85 (107) 100 12/04/17 17:36 129 20 148/83 (104) 100 12/04/17 17:34 129 20 150/82 (104) 100 18 17:32 129 20 160/87 (111) 100 12/04/17 17:30 129 25 135/73 (93) 100 12/04/17 17:28 129 20 134/74 (94) 99 12/04/17 17:26 128 15 138/71 (93) 100 18 17:25 100 40 12/04/17 17:24 126 14 125/66 (85) 100 12/04/17 17:22 128 18 152/76 (101) 100 12/04/17 17:20 137 38 150/78 (102) 100 18 17:20 40 12/04/17 17:18 131 42 144/82 (102) 100 12/04/17 17:00 129 33 156/88 (110) 98 12/04/17 16:59 127 32 146/95 (112) 99 12/04/17 16:56 98 Nasal Cannula 3.00 12/04/17 16:51 98.9 129 36 136/86 (103) 93 12/04/17 16:15 12/04/17 15:30 130 20 158/81 (106) 96 Nasal Cannula 2.00 12/04/17 15:30 128 18 96 Nasal Cannula 2.00 12/04/17 15:00 126 20 139/93 (108) 95 Nasal Cannula 2.00 12/04/17 14:30 128 18 121/76 (91) 97 Nasal Cannula 2.00 12/04/17 14:15 103.7 12/04/17 14:00 133 20 133/89 (104) 95 Nasal Cannula 2.00 12/04/17 13:30 128 22 96 Nasal Cannula 2.00 12/04/17 13:30 132 18 149/89 (109) 98 Nasal Cannula 2.00 12/04/17 13:00 101.7 134 22 141/79 (99) 100 Nasal Cannula 2.00 12/04/17 12:00 101.4 136 28 149/78 (101) 95 Nasal Cannula 2.00 12/04/17 11:30 101.4 136 28 149/78 (101) 95 12/04/17 11:30 95 Room Air Physical Exam GENERAL: This is a well-nourished, well-developed patient, in no apparent distress. SKIN: No rashes,lesions. Cool and dry. HEAD: Atraumatic. Normocephalic. No temporal or scalp tenderness. EYES: Pupils equal round and reactive. Extraocular motions intact. No scleral icterus. No injection or drainage. ENT: Intubated. NECK: Trachea midline. Supple, nontender. CARDIOVASCULAR: Heart sounds audible. No murmur appreciated. RESPIRATORY: Clear to auscultation. Breath sounds equal bilaterally. GASTROINTESTINAL: Abdomen soft, non-tender, nondistended. MUSCULOSKELETAL: Extremities without clubbing, cyanosis, or edema. No joint tenderness, effusion, or edema noted. No calf tenderness. Negative Homans sign bilaterally. NEUROLOGICAL: Sedated on vent. Moves all 4 extremities. Did not open eyes spontaneously for me. ? neck stiffness. Psych could not be assessed IV line sites with no evidence of infection. Laboratory Laboratory Tests Test 12/04/17 11:34 12/04/17 12:10 12/04/17 14:03 12/04/17 14:30 White Blood Count 15.9 Red Blood Count 4.54 Hemoglobin 12.1 Hematocrit 37.0 Mean Corpuscular Volume 81.4 Mean Corpuscular Hemoglobin 26.7 Mean Corpuscular Hemoglobin Concent 32.8 Red Cell Distribution Width 11.7 Platelet Count 183 Mean Platelet Volume 9.9 CBC Comment AUTO DIFF Differential Total Cells Counted 100 Neutrophils % (Manual) 82 Band Neutrophils % 1 Lymphocytes % 11 Monocytes % 5 Eosinophils % 1 Neutrophils # (Manual) 13.2 Differential Comment FINAL DIFF MANUAL Platelet Estimate NORMAL Platelet Morphology Comment NORMAL Prothrombin Time 11.7 Prothromb Time International Ratio 1.2 Activated Partial Thromboplast Time 25.2 Blood Urea Nitrogen 24 Creatinine 0.75 Random Glucose 128 Total Protein 6.8 Albumin 3.6 Calcium Level 9.4 Alkaline Phosphatase 91 Aspartate Amino Transf (AST/SGOT) 51 Alanine Aminotransferase (ALT/SGPT) 37 Total Bilirubin 2.1 Sodium Level 139 Potassium Level 3.7 Chloride Level 103 Carbon Dioxide Level 22.4 Anion Gap 14 Estimat Glomerular Filtration Rate 75 Lactic Acid Level 3.2 2.4 Ammonia LESS THAN 10 Total Creatine Kinase 223 Creatine Kinase MB 14.2 Creatine Kinase MB % 6.4 Troponin I 8.67 Ethyl Alcohol Level LESS THAN 3 Urine Collection Type CLEAN CATCH Urine Color YELLOW Urine Turbidity CLEAR Urine pH 5.5 Urine Specific [place] GREATER/EQUAL 1.030 Urine Protein 100 Urine Glucose (UA) NEG Urine Ketones 40 Urine Occult Blood TRACE Urine Nitrite NEG Urine Bilirubin NEG Urine Urobilinogen 0.2 Urine Leukocyte Esterase NEG Urine RBC 0-3 Urine WBC 0-2 Urine Squamous Epithelial Cells 0-5 Urine Amorphous Sediment FEW Microscopic Urinalysis Comment CULT NOT INDICATED Urine Collection Time 12:10 Urine Opiates Screen NEG Urine Barbiturates Screen NEG Urine Amphetamines Screen NEG Urine Benzodiazepines Screen NEG Urine Cocaine Screen NEG Urine Cannabinoids Screen NEG Blood Gas Puncture Site RT RADIAL Blood Gas Patient Temperature 98.6 Blood Gas HCO3 18 Blood Gas Base Excess -5.0 Blood Gas Oxygen Saturation 95 Arterial Blood pH 7.50 Arterial Blood Partial Pressure CO2 23 Arterial Blood Partial Pressure O2 91 Arterial Blood Oxygen Content 15.2 Arterial Blood Carboxyhemoglobin 1.9 Arterial Blood Methemoglobin 0.8 Blood Gas Hemoglobin 11.3 Oxygen Delivery Device NASAL CANNULA Blood Gas Liter Flow 2 Test 12/04/17 14:50 12/04/17 15:20 12/04/17 17:28 12/04/17 18:54 CSF Volume (Tube 1) 1.0 CSF Supernatant Color (tube 1) CLEAR CSF Gross Blood (Tube 1) 0 CSF Volume (Tube 2) 0.8 CSF Supernatant Color (tube 2) CLEAR CSF Gross Blood (Tube 2) 0 CSF Volume (Tube 3) 1.0 CSF Supernatant Color (tube 3) CLEAR CSF Gross Blood (Tube 3) 0 CSF Volume (Tube 4) 1.0 CSF Supernatant Color (tube 4) CLEAR CSF Gross Blood (Tube 4) 0 CSF WBC (Tube 4) 0 CSF RBC (Tube 4) 1 CSF Neutrophils 0 CSF Lymphocytes 0 CSF Glucose 53 CSF Total Protein 49.0 Blood Gas Puncture Site RT RADIAL Blood Gas Patient Temperature 98.6 Blood Gas HCO3 18 Blood Gas Base Excess -6.6 Blood Gas Oxygen Saturation 96 Arterial Blood pH 7.38 Arterial Blood Partial Pressure CO2 30 Arterial Blood Partial Pressure O2 126 Arterial Blood Oxygen Content 15.2 Arterial Blood Carboxyhemoglobin 0.9 Arterial Blood Methemoglobin 1.1 Blood Gas Hemoglobin 11.1 Oxygen Delivery Device VENTILATOR Blood Gas Ventilator Setting Blood Gas Inspired Oxygen 40 Activated Partial Thromboplast Time 33.8 Date/Time Source Procedure Growth Status 12/04/17 11:38 Blood Peripheral Aerobic Blood Culture Pending Received 12/04/17 11:38 Blood Peripheral Anaerobic Blood Culture Pending Received 12/04/17 14:50 Cerebral Spinal Fluid Lumbar Puncture Gram Stain - Final Resulted 12/04/17 14:50 Cerebral Spinal Fluid Lumbar Puncture CSF Culture Pending Resulted 12/04/17 11:40 Nasal Washing Influenza Types A,B Antigen (HARIKA) - Final NEGATIVE FOR FLU A AND B ANTIGEN.... Complete Result Diagram: 12/04/17 1134 12/04/17 1134 Imaging Last Impressions Chest CT 12/04/17 1154 Signed Impressions: Service Date/Time: Monday, December 04, 2017 12:43 - CONCLUSION: Probable mild congestive failure with trace pleural effusions. No evidence for mass. Jean-Paul Hoffmann MD FACR Head CT 12/04/17 1126 Signed Impressions: Service Date/Time: Monday, December 04, 2017 12:37 - CONCLUSION: Stable brain appearance. No acute intracranial findings Anam Rojas MD Chest X-Ray 12/04/17 1126 Signed Impressions: Service Date/Time: Monday, December 04, 2017 11:27 - CONCLUSION: 1. Large central right hilar mass with volume loss. Contrasted CT chest recommended. Gideon Lin MD Assessment and Plan Assessment and Plan Sepsis present on admission Rule out meningoencephalitis. Acute metabolic encephalopathy: Sepsis, ? new stroke. Possible aspiration Prior history of TIA Prior history of smoking. Global hypokinesis with EF of 20-25% likely sepsis induced. Recommendations: Continue ceftriaxone IV every 12 hours Continue vancomycin IV target trough 15-20 Continue ampicillin IV for now Continue acyclovir for now Consider repeat chest x-ray in a.m. as possibility patient could have aspirated Consider EEG if altered mental status persists Follow MRI results. Follow cultures Follow clinically If CSF Gram stain and cultures negative as well as blood cultures negative at 48 hours consider discontinuation of vancomycin IV, ampicillin IV. Follow HSV PCR in CSF and clinically to decide discontinuation of acyclovir IV Dr. Johnson to cover for me over the weekend. dw RN No family in room. Augusta Amaro MD Dec 04, 2017 19:42
[2017-12-04] MEDS: METOPROLOL TARTRATE 25 MG TAB PO SCH (19:49)
[2017-12-04 20:02] LABS: TROPONIN I 10.3 NG/ML (0.02-0.05)
[2017-12-04] MEDS ORDERED: FAMOTIDINE 20 MG/2 ML VIAL IV PUSH SCH (21:00)
[2017-12-04] MEDS: FAMOTIDINE 20 MG TAB PO SCH (21:38)
[2017-12-04] MEDS: AMPICILLIN INJ 2,000 MG in SODIUM CHLORIDE 0.9% INJ 100 ML IV SCH (21:38)
[2017-12-04] MEDS: DOCUSATE SODIUM 50 MG/SENNA 8.6 MG TAB PO SCH (21:38)
[2017-12-04] MEDS: CHLORHEXIDINE 0.12% (ORAL KIT) 15 ML CUP MT SCH (21:39)
[2017-12-04] MEDS ORDERED: GADODIAMIDE PF 287 MG/ML 20 ML VIAL (for RAD MRI) IVCONTRAST ONE (21:48)
--- NOTE | 2017-12-04 22:15 | RADRPT ---
EXAM DATE/TIME: 12/04/2017 20:36 [facility] COMPARISON: No previous studies available for comparison. INDICATIONS : CVA. MEDICAL HISTORY : Hypertension. SURGICAL HISTORY : Breast augmentation, cataract ENCOUNTER: Initial ACUITY: 1 day PAIN SCORE: 0/10 LOCATION: cranial Please note a normal MRA of the brain does not entirely exclude the possibility of a small aneurysm, nor the possibility of distal intracranial vessel disease. TECHNIQUE: 3D time of flight MRA was performed. Source images, multiplanar STS MIP, and 3D volume MIP reconstru ctions were reviewed. FINDINGS: There is excellent visualization of the major intracranial arteries out to the second-order branch ve ssels. There is no evidence for aneurysm, vessel truncation or stenosis, and no evidence for vascula r malformation. CONCLUSION: No acute disease. Anam Donis MD on December 04, 2017 at 22:13 Board Certified Radiologist. This report was verified electronically.
--- NOTE | 2017-12-04 22:15 | RADRPT ---
EXAM DATE/TIME: 12/04/2017 20:36 [facility] COMPARISON: CT BRAIN W/O CONTRAST, December 04, 2017, 12:37. INDICATIONS : CVA. MEDICAL HISTORY : Hypertension. SURGICAL HISTORY : Breast augmentation, cataract. ENCOUNTER: Initial ACUITY: 1 day PAIN SCORE: 0/10 LOCATION: cranial TECHNIQUE: Multiplanar, multisequence MRI of the brain was performed without contrast. FINDINGS: CEREBRUM: The ventricles are normal for age. There is a patent cavum septum pellucidum. There some minimal foca l areas of increased signal seen on the diffusion weighted images at the left posterior temporal lobe which could be present small areas of acute infarction. On the SWI images, there are multiple focal areas of decreased signal including at the basal ganglia regions bilaterally and in the left posterio r temporal lobe consistent with prior hemorrhage. No evidence of midline shift or mass lesion. No ex traaxial fluid collections are seen. The pituitary gland and suprasellar cistern are normal in confi guration. WHITE MATTER: There are focal and confluent areas of increased signal seen throughout the cerebral and pontine whit e matter. POSTERIOR FOSSA: The cerebellum and brainstem are intact. The 4th ventricle is midline. The cerebellopontine angle is unremarkable. The cerebellar tonsils are normal in position. EXTRACRANIAL: The visualized portions of the orbits and paranasal sinuses are unremarkable. CONCLUSION: 1. Small punctate areas of signal abnormality in the posterior left temporal lobe which may represent small focal areas of acute infarction. 2. Several areas of signal abnormality in the basal ganglia and left posterior temporal lobes likely from prior hemorrhage. 3. Demyelination within the cerebral and pontine white matter likely from small vessel ischemic lara eHector Donis MD on December 04, 2017 at 22:06 Board Certified Radiologist. This report was verified electronically.
--- NOTE | 2017-12-04 22:19 | RADRPT ---
EXAM DATE/TIME: 12/04/2017 20:36 [facility] COMPARISON: No previous studies available for comparison. INDICATIONS : TIA. CONTRAST: 20 cc Omniscan (gadodiamide) IV MEDICAL HISTORY : Hypertension. SURGICAL HISTORY : Breast augmentation, cataract. ENCOUNTER: Initial ACUITY: 1 day PAIN SCORE: 0/10 LOCATION: neck Percent stenosis is calculated using the diameter of the stenotic region over the diameter of the nor mal distal internal carotid artery. TECHNIQUE: Bolus infused MRA of the extracranial circulation was performed using a neurovascular coil. Post pro cessing was performed including rotating subvolume maximum intensity projections of each carotid colton ry, rotating full volume maximum intensity projections of both carotid arteries, sagittal and coronal sliding thin slab reformations of each carotid artery, and left oblique sliding thin slab reformatio n through the aortic arch to include the origin of the arch branch vessels. FINDINGS: AORTIC ARCH: There is very poor opacification of the aorta and the origins of the great vessels. These areas canno t be evaluated. RIGHT CAROTID: The common carotid artery is intact. There is mild plaque at the carotid bulb without significant st enosis. The internal carotid artery lumen is smooth without stenosis. The external carotid artery is intact. LEFT CAROTID: The common carotid artery is intact. The carotid bulb has a normal configuration without ulceration or narrowing. The internal carotid artery lumen is smooth without stenosis. The external carotid ar luis e is intact. VERTEBRALS: The vertebral arteries have a symmetric diameter. No stenotic lesions are seen. CONCLUSION: 1. Mild plaque at the right carotid bulb/proximal internal carotid artery without significant stenosi s. 2. Significant opacification of the aortic arch and origins of the great vessels is not present. Thes e areas cannot be evaluated. Anam Donis MD on December 04, 2017 at 22:13 Board Certified Radiologist. This report was verified electronically.
[2017-12-05] VITALS (31 sets, daily range): BP systolic 65–146; BP diastolic 44–66; PULSE 63–135; RESP 13–55; TEMP 96.9–100; O2SAT 99–100
[2017-12-05] MEDS ORDERED: cefTRIAXone INJ 2,000 MG in SODIUM CHLORIDE 0.9% INJ 100 ML IV SCH ×2
[2017-12-05] MEDS: AMPICILLIN INJ 2,000 MG in SODIUM CHLORIDE 0.9% INJ 100 ML IV SCH ×3 (00:24→08:38)
[2017-12-05] MEDS: MAGNESIUM SULFATE 1 GM PREMIX 100 ML IV SCH ×2 (01:30→02:32)
[2017-12-05] MEDS: INSULIN NovoLIN REGULAR SUPPLEMENTAL SCALE SQ SCH ×6 (02:00→22:00)
[2017-12-05] MEDS: ACYCLOVIR IV SCH ×3 (02:32→17:21)
[2017-12-05] MEDS: SODIUM CHLORIDE 0.9% IV SCH ×3 (02:32→17:21)
[2017-12-05] MEDS: VANCOMYCIN INJ 1,000 MG in SODIUM CHLOR 0.9% 250 ML INJ 250 ML IV SCH ×2 (03:18→15:35)
[2017-12-05] MEDS ORDERED: METOPROLOL TARTRATE 5 MG/5 ML VIAL IV PUSH ONE (03:30)
[2017-12-05] MEDS: RESP: ALBUTEROL 2.5 MG/IPRATROPIUM 0.5 MG NEB (SCH) INH ×5 (03:53→20:23)
[2017-12-05 03:59] LABS: ALBUMIN 2.9 GM/DL (3.4-5.0); AST (GOT) 120 U/L (15-37); BICARBONATE 22.9 MEQ/L (21.0-32.0); BLOOD UREA NITROGEN 28 MG/DL (7-18); CHLORIDE 108 MEQ/L (98-107); CREATININE 0.82 MG/DL (0.50-1.00); GLOMERULAR FILTRATION RATE 68 ML/MIN (>89); GLUCOSE,RANDOM 126 MG/DL (74-106); SODIUM (NA) 143 MEQ/L (136-145)
[2017-12-05 04:00] LABS: ALT (GPT) 76 U/L (10-53)
[2017-12-05] MEDS: CHLORHEXIDINE GLUCONATE 2 % 1 PACK (2 CLOTHS) TOP SCH (04:00)
[2017-12-05 04:02] LABS: ALKALINE PHOSPHATASE 60 U/L (45-117); TOTAL BILIRUBIN ADULT 0.9 MG/DL (0.2-1.0); TOTAL PROTEIN 5.7 GM/DL (6.4-8.2)
[2017-12-05] MEDS ORDERED: AMIODARONE INJ 150 MG in DEXTROSE 5% IN WATER 100ML INJ 97 ML IV ONE ×2 (04:11)
[2017-12-05 04:17] LABS: AUTOMATED NEUTROPHIL # 7.2 TH/MM3 (1.8-7.7); BASOPHIL % 0.4 % (0.0-2.0); HEMATOCRIT 33.2 % (35.0-46.0); HEMOGLOBIN 11.2 GM/DL (11.6-15.3); LYMPH % 20.3 % (9.0-44.0); LYMPHOCYTE # 2.1 TH/MM3 (1.0-4.8); MEAN CELL VOLUME 82.5 FL (80.0-100.0); MEAN CORPUSCULAR HEMOGLOBIN 27.8 PG (27.0-34.0); MEAN CORPUSCULAR HGB CONC 33.7 % (32.0-36.0); MEAN PLATELET VOLUME 10.6 FL (7.0-11.0); MONO % 10.2 % (0.0-8.0); MONOCYTE # 1.1 TH/MM3 (0-0.9); NEUT % 69.1 % (16.0-70.0); PLATELET COUNT 112 TH/MM3 (150-450); RED BLOOD COUNT 4.02 MIL/MM3 (4.00-5.30); RED CELL DISTRIBUTION WIDTH 12.1 % (11.6-17.2); WHITE BLOOD COUNT 10.4 TH/MM3 (4.0-11.0)
[2017-12-05] MEDS ORDERED: AMIODARONE INJ 450 MG in DEXTROSE 5% IN WATE(EXCEL) INJ 241 ML IV SCH ×2 (04:26)
[2017-12-05] MEDS: PROPOFOL 1000 MG/100 ML INJ 100 ML IV PRN ×2 (04:59→18:17)
[2017-12-05] MEDS: AMIODARONE INJ 450 MG in SODIUM CHLOR 0.9% (EXCEL) INJ 241 ML IV SCH ×2 (05:39→12:12)
[2017-12-05] MEDS: DOCUSATE SODIUM 50 MG/SENNA 8.6 MG TAB PO SCH ×2 (08:38→21:00)
[2017-12-05] MEDS: FAMOTIDINE 20 MG TAB PO SCH ×2 (08:38→22:24)
[2017-12-05] MEDS: SODIUM CHLORIDE FLUSH BID IV FLUSH SCH ×2 (08:39→22:25)
[2017-12-05] MEDS: CHLORHEXIDINE 0.12% (ORAL KIT) 15 ML CUP MT SCH ×2 (08:40→20:00)
--- NOTE | 2017-12-05 08:55 | EKG ---
Date Performed: 12/04/2017 Time Performed: 11:46:36 PTAGE: 77 years EKG: SINUS TACHYCARDIA NONSPECIFIC T-WAVE ABNORMALITY ABNORMAL RHYTHM ECG PREVIOUS TRACING : 09/07/2015 07.15 DOCTOR: Hanna Still Interpretating Date/Time 12/05/2017 08:53:25
[2017-12-05] MEDS: METOPROLOL TARTRATE 25 MG TAB PO SCH ×2 (09:00→21:00)
--- NOTE | 2017-12-05 09:42 | HHI.IDPN ---
Subjective Subjective Remarks ID COVERAGE Ms. Rausch is a 77-year-old female who reportedly is very active at baseline. The nurse taking care of the patient reports to me the patient was expected to be at the gym and when she did not show up of friends into the home and was found down, disoriented, staring off to the left not answering any questions. Her past medical history significant for hypertension, previous TIA and tobacco abuse. Patient was reportedly seen normal at 7 PM the night before when she was attending a car show. When in the emergency room her temperature was 101 and it spiked 203.7. ER workup included a CT scan which is negative for acute findings. Lab workup showed WBC 15.9 with a leftward shift, elevated lactic acid at 3.4 and an elevated troponin and 8.7. Cardiology was consulted and patient was given aspirin and recommended that IV heparin be started. IV heparin was not started because of lumbar puncture. Upon review of the numbers for lumbar puncture appears unremarkable with the minimal elevation of total protein. Patient had a sepsis workup initiated and started on meningitis doses for vancomycin and Rocephin, ampicillin as well as acyclovir IV. All the lumbar puncture studies as well as blood cultures are pending at the present time. Patient was found to be a phasic with a leftward gaze and diminished movements of the right upper and lower extremities. Patient was intubated for airway protection. A 2D echo done showed 20-25% EF with global hypokinesis. No prior history of any seizure disorder per review of records. No reported history of drug abuse. Infectious disease is consulted for evaluation and management of possible meningitis. Notes reviewed D/W RN D/W Dr Hayward (Neurology) Patient on diprivan, on the vent Febrile all night BP ok, not on pressors WBC down to normal LP ok MRI brain noted CT chest, prob mild CHF and trace effusions Antibiotics Vancomycin Ampicillin Rocephin Acyclovir Current Medications Medications (Trade) Dose Ordered Sig/April Route Start Time Stop Time Status Last Admin (Duoneb Neb) 1 ampule Q4HR NEB INH 12/04/17 16:00 12/05/17 07:41 (Duoneb Neb) 1 ampule Q2HR NEB PRN INH 12/04/17 14:00 Miscellaneous Information 1 Q361D XX 12/04/17 14:00 (Chlorhexidine 2% Cloth) 3 pack Taper DAILY@04 TOP 12/05/17 04:00 12/01/18 03:59 12/05/17 04:00 (Chlorhexidine 2% Cloth) 3 pack UNSCH PRN TOP 12/04/17 14:00 (Mera-Colace) 1 tab BID PO 12/04/17 21:00 12/05/17 08:38 (Milk Of Magnesia Liq) 30 ml Q12H PRN PO 12/04/17 14:00 (Senokot) 17.2 mg Q12H PRN PO 12/04/17 14:00 (Dulcolax Supp) 10 mg DAILY PRN RECTAL 12/04/17 14:00 (Lactulose Liq) 30 ml DAILY PRN PO 12/04/17 14:00 Vancomycin HCl 1000 mg/Sodium Chloride 250 ml @ 250 mls/hr Q12H IV 12/04/17 15:00 12/05/17 03:18 (D50w (Vial) Inj) 50 ml UNSCH PRN IV PUSH 12/04/17 14:00 (Glucagon Inj) 1 mg UNSCH PRN OTHER 12/04/17 14:00 (NovoLIN R SUPPLEMENTAL SCALE) 1 Q4H SQ 12/04/17 14:00 Sodium Chloride 1,000 ml @ 84 mls/hr [id number] IV 12/04/17 14:00 12/04/17 15:08 Ceftriaxone Sodium 2000 mg/ Sodium Chloride 100 ml @ 200 mls/hr Q12H IV 12/05/17 00:00 12/05/17 00:24 (Lopressor) 25 mg Q12HR PO 12/04/17 21:00 12/04/17 19:49 (Pepcid) 20 mg Q12HR PO 12/04/17 21:00 12/05/17 08:38 Ampicillin Sodium 2000 mg/Sodium Chloride 100 ml @ 400 mls/hr Q4H IV 12/04/17 16:00 12/05/17 08:38 Acyclovir Sodium 680 mg/Sodium Chloride 100 ml @ 100 mls/hr Q8H IV 12/04/17 18:00 12/05/17 02:32 Thiamine HCl 100 mg/Sodium Chloride 101 ml @ 101 mls/hr DAILY@1800 IV 12/04/17 18:00 12/04/17 17:44 (Peridex 0.12% Liq) 15 ml BID@08,20 MT 12/04/17 20:00 12/05/17 08:40 Propofol 100 ml @ 2.04 mls/hr TITRATE PRN IV 12/04/17 17:30 12/05/17 04:59 (NS Flush) 2 ml UNSCH PRN IVF 12/05/17 04:15 (NS Flush) 2 ml BID IV FLUSH 12/05/17 09:00 12/05/17 08:39 Amiodarone HCl 450 mg/Sodium Chloride 250 ml @ 33 mls/hr Q7H35M IV 12/05/17 04:30 12/05/17 05:39 Heparin Sodium/ Dextrose 250 ml @ 7.72 mls/hr TITRATE PRN IV 12/05/17 07:00 Lines Line no evidenc of infection Past Medical History Hypertension Previous CVA/TIA Tobacco abuse Past Surgical History Cataract surgery Breast augmentation Allergies: Coded Allergies: doxycycline (Unverified Allergy, Severe, 12/04/17) ALTERED MENTAL STATUS minocycline (Unverified Allergy, Severe, 12/04/17) ALTERED MENTAL STATUS tigecycline (Unverified Allergy, Severe, 12/04/17) ALTERED MENTAL STATUS Objective . Vital Signs Date Time Temp Pulse Resp B/P (MAP) Pulse Ox O2 Delivery O2 Flow Rate FiO2 12/05/17 07:43 100 40 12/05/17 06:00 89 12/05/17 06:00 89 24 75/45 (55) 100 12/05/17 05:39 126 75/47 12/05/17 05:00 127 24 81/51 (61) 100 12/05/17 05:00 127 12/05/17 04:33 141 99/56 12/05/17 04:00 40 12/05/17 04:00 98.3 126 23 99/56 (70) 100 12/05/17 04:00 126 12/05/17 03:59 100 Ventilator 12/05/17 03:56 100 40 12/05/17 03:00 135 31 132/59 (83) 100 12/05/17 03:00 135 12/05/17 02:00 104 12/05/17 02:00 104 25 146/66 (92) 100 12/05/17 00:00 40 12/05/17 00:00 100.0 104 24 136/64 (88) 100 4/21/18 00:00 104 4/20/18 23:27 100 Ventilator 4/20/18 23:27 100 40 4/20/18 22:00 100.3 104 16 124/57 (79) 100 4/20/18 22:00 104 4/20/18 21:42 100 15.00 4/20/18 20:00 120 4/20/18 20:00 103.1 120 25 128/67 (87) 100 420/18 20:00 40 4/20/18 19:28 100 40 4/20/18 19:00 102.8 127 30 147/80 (102) 100 4/20/18 18:30 126 29 155/74 (101) 100 4/20/18 18:10 128 31 135/99 (111) 100 420/18 18:00 130 4/20/18 17:44 130 21 155/97 (116) 100 420/18 17:40 129 24 149/81 (103) 100 420/18 17:38 129 21 153/85 (107) 100 420/18 17:36 129 20 148/83 (104) 100 420/18 17:34 129 20 150/82 (104) 100 420/18 17:32 129 20 160/87 (111) 100 420/18 17:30 129 25 135/73 (93) 100 4/20/18 17:28 129 20 134/74 (94) 99 4/20/18 17:26 128 15 138/71 (93) 100 420/18 17:25 100 40 4/20/18 17:24 126 14 125/66 (85) 100 4/20/18 17:22 128 18 152/76 (101) 100 4/20/18 17:20 137 38 150/78 (102) 100 4/20/18 17:20 40 4/20/18 17:18 131 42 144/82 (102) 100 4/20/18 17:00 129 33 156/88 (110) 98 4/20/18 16:59 127 32 146/95 (112) 99 4/20/18 16:56 98 Nasal Cannula 3.00 42018 16:51 98.9 129 36 136/86 (103) 93 420/18 16:15 4/20/18 15:30 130 20 158/81 (106) 96 Nasal Cannula 2.00 12/04/17 15:30 128 18 96 Nasal Cannula 2.00 12/04/17 15:00 126 20 139/93 (108) 95 Nasal Cannula 2.00 12/04/17 14:30 128 18 121/76 (91) 97 Nasal Cannula 2.00 12/04/17 14:15 103.7 12/04/17 14:00 133 20 133/89 (104) 95 Nasal Cannula 2.00 12/04/17 13:30 128 22 96 Nasal Cannula 2.00 12/04/17 13:30 132 18 149/89 (109) 98 Nasal Cannula 2.00 12/04/17 13:00 101.7 134 22 141/79 (99) 100 Nasal Cannula 2.00 12/04/17 12:00 101.4 136 28 149/78 (101) 95 Nasal Cannula 2.00 12/04/17 11:30 101.4 136 28 149/78 (101) 95 12/04/17 11:30 95 Room Air . Laboratory Tests Test 12/04/17 11:34 12/05/17 03:30 White Blood Count 15.9 TH/MM3 10.4 TH/MM3 Red Blood Count 4.54 MIL/MM3 4.02 MIL/MM3 Hemoglobin 12.1 GM/DL 11.2 GM/DL Hematocrit 37.0 % 33.2 % Mean Corpuscular Volume 81.4 FL 82.5 FL Mean Corpuscular Hemoglobin 26.7 PG 27.8 PG Mean Corpuscular Hemoglobin Concent 32.8 % 33.7 % Red Cell Distribution Width 11.7 % 12.1 % Platelet Count 183 TH/MM3 112 TH/MM3 Mean Platelet Volume 9.9 FL 10.6 FL CBC Comment AUTO DIFF DIFF FINAL Differential Total Cells Counted 100 Neutrophils % (Manual) 82 % Band Neutrophils % 1 % Lymphocytes % 11 % Monocytes % 5 % Eosinophils % 1 % Neutrophils # (Manual) 13.2 TH/MM3 Differential Comment FINAL DIFF MANUAL Platelet Estimate NORMAL Platelet Morphology Comment NORMAL Neutrophils (%) (Auto) 69.1 % Lymphocytes (%) (Auto) 20.3 % Monocytes (%) (Auto) 10.2 % Eosinophils (%) (Auto) 0.0 % Basophils (%) (Auto) 0.4 % Neutrophils # (Auto) 7.2 TH/MM3 Lymphocytes # (Auto) 2.1 TH/MM3 Monocytes # (Auto) 1.1 TH/MM3 Eosinophils # (Auto) 0.0 TH/MM3 Basophils # (Auto) 0.0 TH/MM3 Laboratory Tests Test 12/04/17 11:34 12/04/17 14:30 12/04/17 18:54 12/05/17 00:43 Blood Urea Nitrogen 24 MG/DL Creatinine 0.75 MG/DL Random Glucose 128 MG/DL Total Protein 6.8 GM/DL Albumin 3.6 GM/DL Calcium Level 9.4 MG/DL Alkaline Phosphatase 91 U/L Aspartate Amino Transf (AST/SGOT) 51 U/L Alanine Aminotransferase (ALT/SGPT) 37 U/L Total Bilirubin 2.1 MG/DL Sodium Level 139 MEQ/L Potassium Level 3.7 MEQ/L Chloride Level 103 MEQ/L Carbon Dioxide Level 22.4 MEQ/L Anion Gap 14 MEQ/L Estimat Glomerular Filtration Rate 75 ML/MIN Lactic Acid Level 3.2 mmol/L 2.4 mmol/L Ammonia LESS THAN 10 MCMOL/L Total Creatine Kinase 223 U/L Creatine Kinase MB 14.2 NG/ML Creatine Kinase MB % 6.4 % Troponin I 8.67 NG/ML 10.30 NG/ML 9.65 NG/ML Vitamin B12 Level 1095 PG/ML Folate 14.0 NG/ML Test 12/05/17 03:30 Blood Urea Nitrogen 28 MG/DL Creatinine 0.82 MG/DL Random Glucose 126 MG/DL Total Protein 5.7 GM/DL Albumin 2.9 GM/DL Calcium Level 8.0 MG/DL Alkaline Phosphatase 60 U/L Aspartate Amino Transf (AST/SGOT) 120 U/L Alanine Aminotransferase (ALT/SGPT) 76 U/L Total Bilirubin 0.9 MG/DL Sodium Level 143 MEQ/L Potassium Level 3.2 MEQ/L Chloride Level 108 MEQ/L Carbon Dioxide Level 22.9 MEQ/L Anion Gap 12 MEQ/L Estimat Glomerular Filtration Rate 68 ML/MIN Troponin I 12.80 NG/ML Microbiology Date/Time Source Procedure Growth Status 12/04/17 11:38 Blood Peripheral Aerobic Blood Culture Pending Received 12/04/17 11:38 Blood Peripheral Anaerobic Blood Culture Pending Received 12/04/17 11:30 Blood Peripheral Aerobic Blood Culture Pending Received 12/04/17 11:30 Blood Peripheral Anaerobic Blood Culture Pending Received 12/04/17 14:50 Cerebral Spinal Fluid Lumbar Puncture Fungal Smear Pending Received 12/04/17 14:50 Cerebral Spinal Fluid Lumbar Puncture Fungal Culture Pending Received 12/04/17 14:50 Cerebral Spinal Fluid Lumbar Puncture Acid Fast Stain Pending Received 12/04/17 14:50 Cerebral Spinal Fluid Lumbar Puncture Mycobacterial Culture Pending Received 12/04/17 14:50 Cerebral Spinal Fluid Lumbar Puncture Gram Stain - Final Resulted 12/04/17 14:50 Cerebral Spinal Fluid Lumbar Puncture CSF Culture - Preliminary NO GROWTH IN 24 HOURS. Resulted 12/04/17 18:00 Sputum Endotracheal Gram Stain - Final Resulted 12/04/17 18:00 Sputum Endotracheal Sputum Culture Pending Resulted 12/04/17 11:40 Nasal Washing Influenza Types A,B Antigen (HARIKA) - Final NEGATIVE FOR FLU A AND B ANTIGEN.... Complete Imaging Last Impressions Chest CT 12/04/17 1154 Signed Impressions: Service Date/Time: Monday, December 04, 2017 12:43 - CONCLUSION: Probable mild congestive failure with trace pleural effusions. No evidence for mass. Jean-Paul Hoffmann MD FACR Head CT 12/04/17 1126 Signed Impressions: Service Date/Time: Monday, December 04, 2017 12:37 - CONCLUSION: Stable brain appearance. No acute intracranial findings Anam Rojas MD Chest X-Ray 12/04/17 1126 Signed Impressions: Service Date/Time: Monday, December 04, 2017 11:27 - CONCLUSION: 1. Large central right hilar mass with volume loss. Contrasted CT chest recommended. Gideon Lin MD Neck Magnetic Resonance Angiography 12/04/17 0000 Signed Impressions: Service Date/Time: Monday, December 04, 2017 20:36 - CONCLUSION: 1. Mild plaque at the right carotid bulb/proximal internal carotid artery without significant stenosis. 2. Significant opacification of the aortic arch and origins of the great vessels is not present. These areas cannot be evaluated. Anam Donis MD Head Magnetic Resonance Angiography 12/04/17 0000 Signed Impressions: Service Date/Time: Monday, December 04, 2017 20:36 - CONCLUSION: No acute disease. Anam Donis MD Brain MRI 12/04/17 0000 Signed Impressions: Service Date/Time: Monday, December 04, 2017 20:36 - CONCLUSION: 1. Small punctate areas of signal abnormality in the posterior left temporal lobe which may represent small focal areas of acute infarction. 2. Several areas of signal abnormality in the basal ganglia and left posterior temporal lobes likely from prior hemorrhage. 3. Demyelination within the cerebral and pontine white matter likely from small vessel ischemic change. Anam Donis MD Physical Exam GENERAL: Sedated on the vent SKIN: No rashes,lesions. Cool and dry. HEAD: Atraumatic. Normocephalic. No temporal or scalp tenderness. EYES: Pupils equal round and reactive. No scleral icterus. No injection or drainage. ENT: Intubated. NECK: Trachea midline. Supple, nontender. CARDIOVASCULAR: Heart sounds audible. No murmur appreciated. RESPIRATORY: Clear to auscultation. Breath sounds equal bilaterally. GASTROINTESTINAL: Abdomen soft, non-tender, nondistended. MUSCULOSKELETAL: Extremities without clubbing, cyanosis, or edema. No joint tenderness, effusion, or edema noted. No calf tenderness. Negative Homans sign bilaterally. NEUROLOGICAL: Sedated on vent. Psych could not be assessed IV line sites with no evidence of infection. Assessment & Plan Remarks Sepsis present on admission No evidence on MANAGER OF COMPLIANCE infection on LP Acute metabolic encephalopathy: Sepsis, ? new stroke. ?SZ Possible aspiration Prior history of TIA Prior history of smoking. Global hypokinesis with EF of 20-25% likely sepsis induced. Recommendations: Continue ceftriaxone Continue vancomycin IV target trough 15-20 Stop ampicillin Also on Zithromax Continue acyclovir for now - if HSV negative, will D/C Follow C/S Neurology evaluating patient Monitor temps Monitor clinical progress D/W Shae Ventura MD Dec 05, 2017 09:42
--- NOTE | 2017-12-05 10:07 | PD.CARD.PN ---
Subjective Subjective Remarks on vent Objective Medications Current Medications Medications (Trade) Dose Ordered Sig/April Route Start Time Stop Time Status Last Admin (Duoneb Neb) 1 ampule Q4HR NEB INH 12/04/17 16:00 12/05/17 07:41 (Duoneb Neb) 1 ampule Q2HR NEB PRN INH 12/04/17 14:00 Miscellaneous Information 1 [id number] XX 12/04/17 14:00 (Chlorhexidine 2% Cloth) 3 pack Taper DAILY@04 TOP 12/05/17 04:00 12/01/18 03:59 12/05/17 04:00 (Chlorhexidine 2% Cloth) 3 pack UNSCH PRN TOP 12/04/17 14:00 (Mera-Colace) 1 tab BID PO 12/04/17 21:00 12/05/17 08:38 (Milk Of Magnesia Liq) 30 ml Q12H PRN PO 12/04/17 14:00 (Senokot) 17.2 mg Q12H PRN PO 12/04/17 14:00 (Dulcolax Supp) 10 mg DAILY PRN RECTAL 12/04/17 14:00 (Lactulose Liq) 30 ml DAILY PRN PO 12/04/17 14:00 Vancomycin HCl 1000 mg/Sodium Chloride 250 ml @ 250 mls/hr Q12H IV 12/04/17 15:00 12/05/17 03:18 (D50w (Vial) Inj) 50 ml UNSCH PRN IV PUSH 12/04/17 14:00 (Glucagon Inj) 1 mg UNSCH PRN OTHER 12/04/17 14:00 (NovoLIN R SUPPLEMENTAL SCALE) 1 Q4H SQ 12/04/17 14:00 Sodium Chloride 1,000 ml @ 84 mls/hr [id number] IV 12/04/17 14:00 12/04/17 15:08 (Lopressor) 25 mg Q12HR PO 12/04/17 21:00 12/04/17 19:49 (Pepcid) 20 mg Q12HR PO 12/04/17 21:00 12/05/17 08:38 Acyclovir Sodium 680 mg/Sodium Chloride 100 ml @ 100 mls/hr Q8H IV 12/04/17 18:00 12/05/17 09:45 Thiamine HCl 100 mg/Sodium Chloride 101 ml @ 101 mls/hr DAILY@1800 IV 12/04/17 18:00 12/04/17 17:44 (Peridex 0.12% Liq) 15 ml BID@08,20 MT 12/04/17 20:00 12/05/17 08:40 Propofol 100 ml @ 2.04 mls/hr TITRATE PRN IV 12/04/17 17:30 12/05/17 04:59 (NS Flush) 2 ml UNSCH PRN IVF 12/05/17 04:15 (NS Flush) 2 ml BID IV FLUSH 12/05/17 09:00 12/05/17 08:39 Amiodarone HCl 450 mg/Sodium Chloride 250 ml @ 33 mls/hr [id number] IV 12/05/17 04:30 12/05/17 05:39 Heparin Sodium/ Dextrose 250 ml @ 7.72 mls/hr TITRATE PRN IV 12/05/17 07:00 Ceftriaxone Sodium 2000 mg/ Sodium Chloride 100 ml @ 200 mls/hr Q24H IV 12/06/17 00:00 Vital Signs / I&O Vital Signs Date Time Temp Pulse Resp B/P (MAP) Pulse Ox O2 Delivery O2 Flow Rate FiO2 12/05/17 07:43 100 40 12/05/17 06:00 89 12/05/17 06:00 89 24 75/45 (55) 100 12/05/17 05:39 126 75/47 12/05/17 05:00 127 24 81/51 (61) 100 12/05/17 05:00 127 12/05/17 04:33 141 99/56 12/05/17 04:00 40 12/05/17 04:00 98.3 126 23 99/56 (70) 100 12/05/17 04:00 126 12/05/17 03:59 100 Ventilator 12/05/17 03:56 100 40 12/05/17 03:00 135 31 132/59 (83) 100 12/05/17 03:00 135 12/05/17 02:00 104 12/05/17 02:00 104 25 146/66 (92) 100 12/05/17 00:00 40 12/05/17 00:00 100.0 104 24 136/64 (88) 100 12/05/17 00:00 104 4/20/18 23:27 100 Ventilator 4/20/18 23:27 100 40 4/20/18 22:00 100.3 104 16 124/57 (79) 100 4/20/18 22:00 104 4/20/18 21:42 100 15.00 4/20/18 20:00 120 4/20/18 20:00 103.1 120 25 128/67 (87) 100 420/18 20:00 40 4/20/18 19:28 100 40 4/20/18 19:00 102.8 127 30 147/80 (102) 100 4/20/18 18:30 126 29 155/74 (101) 100 4/20/18 18:10 128 31 135/99 (111) 100 420/18 18:00 130 4/20/18 17:44 130 21 155/97 (116) 100 4/20/18 17:40 129 24 149/81 (103) 100 420/18 17:38 129 21 153/85 (107) 100 420/18 17:36 129 20 148/83 (104) 100 420/18 17:34 129 20 150/82 (104) 100 4/20/18 17:32 129 20 160/87 (111) 100 420/18 17:30 129 25 135/73 (93) 100 4/20/18 17:28 129 20 134/74 (94) 99 4/20/18 17:26 128 15 138/71 (93) 100 4/20/18 17:25 100 40 4/20/18 17:24 126 14 125/66 (85) 100 4/20/18 17:22 128 18 152/76 (101) 100 4/20/18 17:20 137 38 150/78 (102) 100 4/20/18 17:20 40 4/20/18 17:18 131 42 144/82 (102) 100 4/20/18 17:00 129 33 156/88 (110) 98 4/20/18 16:59 127 32 146/95 (112) 99 4/20/18 16:56 98 Nasal Cannula 3.00 420/18 16:51 98.9 129 36 136/86 (103) 93 420/18 16:15 420/18 15:30 130 20 158/81 (106) 96 Nasal Cannula 2.00 12/04/17 15:30 128 18 96 Nasal Cannula 2.00 12/04/17 15:00 126 20 139/93 (108) 95 Nasal Cannula 2.00 12/04/17 14:30 128 18 121/76 (91) 97 Nasal Cannula 2.00 12/04/17 14:15 103.7 12/04/17 14:00 133 20 133/89 (104) 95 Nasal Cannula 2.00 12/04/17 13:30 128 22 96 Nasal Cannula 2.00 12/04/17 13:30 132 18 149/89 (109) 98 Nasal Cannula 2.00 12/04/17 13:00 101.7 134 22 141/79 (99) 100 Nasal Cannula 2.00 12/04/17 12:00 101.4 136 28 149/78 (101) 95 Nasal Cannula 2.00 12/04/17 11:30 101.4 136 28 149/78 (101) 95 12/04/17 11:30 95 Room Air I/O 12/04/17 12/04/17 12/04/17 12/05/17 12/05/17 12/05/17 07:00 15:00 23:00 07:00 15:00 23:00 Intake Total 1350 ml 1616 ml 810 ml Output Total 400 ml 350 ml Balance 1350 ml 1216 ml 460 ml Intake Oral 0 ml IV Total 1350 ml 1616 ml 750 ml Other 60 ml Output Urine Total 400 ml 350 ml # Bowel Movements 0 Physical Exam on vent. No longer gazing to left Chest + rhonchi CV: AF RVR earlier, now SR after IV amio Abd soft Ext: no edema Laboratory Laboratory Tests Test 12/04/17 00:00 12/04/17 11:34 12/04/17 12:10 12/04/17 14:03 Differential Total Cells Counted 100 Neutrophils % (Manual) 82 % Band Neutrophils % 1 % Lymphocytes % 11 % Monocytes % 5 % Eosinophils % 1 % Neutrophils # (Manual) 13.2 TH/MM3 Platelet Estimate NORMAL Platelet Morphology Comment NORMAL Prothrombin Time 11.7 SEC Prothromb Time International Ratio 1.2 RATIO Ammonia LESS THAN 10 MCMOL/L Total Creatine Kinase 223 U/L Creatine Kinase MB 14.2 NG/ML Creatine Kinase MB % 6.4 % Ethyl Alcohol Level LESS THAN 3 MG/DL Urine Collection Type CLEAN CATCH Urine Color YELLOW Urine Turbidity CLEAR Urine pH 5.5 Urine Specific [place] GREATER/EQUAL 1.030 Urine Protein 100 mg/dL Urine Glucose (UA) NEG mg/dL Urine Ketones 40 mg/dL Urine Occult Blood TRACE Urine Nitrite NEG Urine Bilirubin NEG Urine Urobilinogen 0.2 MG/DL Urine Leukocyte Esterase NEG Urine RBC 0-3 /hpf Urine WBC 0-2 /hpf Urine Squamous Epithelial Cells 0-5 /hpf Urine Amorphous Sediment FEW Microscopic Urinalysis Comment CULT NOT INDICATED Urine Collection Time 12:10 Urine Opiates Screen NEG Urine Barbiturates Screen NEG Urine Amphetamines Screen NEG Urine Benzodiazepines Screen NEG Urine Cocaine Screen NEG Urine Cannabinoids Screen NEG Blood Gas Liter Flow 2 L/M Test 12/04/17 14:30 12/04/17 14:50 12/04/17 15:20 12/04/17 17:28 Lactic Acid Level 2.4 mmol/L CSF Volume (Tube 1) 1.0 ML CSF Supernatant Color (tube 1) CLEAR CSF Gross Blood (Tube 1) 0 CSF Volume (Tube 2) 0.8 ML CSF Supernatant Color (tube 2) CLEAR CSF Gross Blood (Tube 2) 0 CSF Volume (Tube 3) 1.0 ML CSF Supernatant Color (tube 3) CLEAR CSF Gross Blood (Tube 3) 0 CSF Volume (Tube 4) 1.0 ML CSF Supernatant Color (tube 4) CLEAR CSF Gross Blood (Tube 4) 0 CSF WBC (Tube 4) 0 /MM3 CSF RBC (Tube 4) 1 /MM3 CSF Neutrophils 0 % CSF Lymphocytes 0 % CSF Glucose 53 MG/DL CSF Total Protein 49.0 MG/DL Blood Gas Puncture Site RT RADIAL Blood Gas Patient Temperature 98.6 Blood Gas HCO3 18 mmol/L Blood Gas Base Excess -6.6 mmol/L Blood Gas Oxygen Saturation 96 % Arterial Blood pH 7.38 Arterial Blood Partial Pressure CO2 30 mmHg Arterial Blood Partial Pressure O2 126 mmHg Arterial Blood Oxygen Content 15.2 Vol % Arterial Blood Carboxyhemoglobin 0.9 % Arterial Blood Methemoglobin 1.1 % Blood Gas Hemoglobin 11.1 G/DL Oxygen Delivery Device VENTILATOR Blood Gas Ventilator Setting Blood Gas Inspired Oxygen 40 % Test 12/04/17 18:00 12/04/17 18:54 12/05/17 03:30 Nasal Screen MRSA (PCR) MRSA NOT DETECTED Activated Partial Thromboplast Time 33.8 SEC Vitamin B12 Level 1095 PG/ML Folate 14.0 NG/ML White Blood Count 10.4 TH/MM3 Red Blood Count 4.02 MIL/MM3 Hemoglobin 11.2 GM/DL Hematocrit 33.2 % Mean Corpuscular Volume 82.5 FL Mean Corpuscular Hemoglobin 27.8 PG Mean Corpuscular Hemoglobin Concent 33.7 % Red Cell Distribution Width 12.1 % Platelet Count 112 TH/MM3 Mean Platelet Volume 10.6 FL Neutrophils (%) (Auto) 69.1 % Lymphocytes (%) (Auto) 20.3 % Monocytes (%) (Auto) 10.2 % Eosinophils (%) (Auto) 0.0 % Basophils (%) (Auto) 0.4 % Neutrophils # (Auto) 7.2 TH/MM3 Lymphocytes # (Auto) 2.1 TH/MM3 Monocytes # (Auto) 1.1 TH/MM3 Eosinophils # (Auto) 0.0 TH/MM3 Basophils # (Auto) 0.0 TH/MM3 CBC Comment DIFF FINAL Differential Comment Blood Urea Nitrogen 28 MG/DL Creatinine 0.82 MG/DL Random Glucose 126 MG/DL Total Protein 5.7 GM/DL Albumin 2.9 GM/DL Calcium Level 8.0 MG/DL Alkaline Phosphatase 60 U/L Aspartate Amino Transf (AST/SGOT) 120 U/L Alanine Aminotransferase (ALT/SGPT) 76 U/L Total Bilirubin 0.9 MG/DL Sodium Level 143 MEQ/L Potassium Level 3.2 MEQ/L Chloride Level 108 MEQ/L Carbon Dioxide Level 22.9 MEQ/L Anion Gap 12 MEQ/L Estimat Glomerular Filtration Rate 68 ML/MIN Troponin I 12.80 NG/ML Laboratory Tests Test 12/04/17 11:34 12/04/17 12:10 12/04/17 14:03 12/04/17 14:30 White Blood Count 15.9 TH/MM3 Red Blood Count 4.54 MIL/MM3 Hemoglobin 12.1 GM/DL Hematocrit 37.0 % Mean Corpuscular Volume 81.4 FL Mean Corpuscular Hemoglobin 26.7 PG Mean Corpuscular Hemoglobin Concent 32.8 % Red Cell Distribution Width 11.7 % Platelet Count 183 TH/MM3 Mean Platelet Volume 9.9 FL CBC Comment AUTO DIFF Differential Total Cells Counted 100 Neutrophils % (Manual) 82 % Band Neutrophils % 1 % Lymphocytes % 11 % Monocytes % 5 % Eosinophils % 1 % Neutrophils # (Manual) 13.2 TH/MM3 Differential Comment FINAL DIFF MANUAL Platelet Estimate NORMAL Platelet Morphology Comment NORMAL Prothrombin Time 11.7 SEC Prothromb Time International Ratio 1.2 RATIO Activated Partial Thromboplast Time 25.2 SEC Blood Urea Nitrogen 24 MG/DL Creatinine 0.75 MG/DL Random Glucose 128 MG/DL Total Protein 6.8 GM/DL Albumin 3.6 GM/DL Calcium Level 9.4 MG/DL Alkaline Phosphatase 91 U/L Aspartate Amino Transf (AST/SGOT) 51 U/L Alanine Aminotransferase (ALT/SGPT) 37 U/L Total Bilirubin 2.1 MG/DL Sodium Level 139 MEQ/L Potassium Level 3.7 MEQ/L Chloride Level 103 MEQ/L Carbon Dioxide Level 22.4 MEQ/L Anion Gap 14 MEQ/L Estimat Glomerular Filtration Rate 75 ML/MIN Lactic Acid Level 3.2 mmol/L 2.4 mmol/L Ammonia LESS THAN 10 MCMOL/L Total Creatine Kinase 223 U/L Creatine Kinase MB 14.2 NG/ML Creatine Kinase MB % 6.4 % Troponin I 8.67 NG/ML Ethyl Alcohol Level LESS THAN 3 MG/DL Urine Collection Type CLEAN CATCH Urine Color YELLOW Urine Turbidity CLEAR Urine pH 5.5 Urine Specific [place] GREATER/EQUAL 1.030 Urine Protein 100 mg/dL Urine Glucose (UA) NEG mg/dL Urine Ketones 40 mg/dL Urine Occult Blood TRACE Urine Nitrite NEG Urine Bilirubin NEG Urine Urobilinogen 0.2 MG/DL Urine Leukocyte Esterase NEG Urine RBC 0-3 /hpf Urine WBC 0-2 /hpf Urine Squamous Epithelial Cells 0-5 /hpf Urine Amorphous Sediment FEW Microscopic Urinalysis Comment CULT NOT INDICATED Urine Collection Time 12:10 Urine Opiates Screen NEG Urine Barbiturates Screen NEG Urine Amphetamines Screen NEG Urine Benzodiazepines Screen NEG Urine Cocaine Screen NEG Urine Cannabinoids Screen NEG Blood Gas Puncture Site RT RADIAL Blood Gas Patient Temperature 98.6 Blood Gas HCO3 18 mmol/L Blood Gas Base Excess -5.0 mmol/L Blood Gas Oxygen Saturation 95 % Arterial Blood pH 7.50 Arterial Blood Partial Pressure CO2 23 mmHG Arterial Blood Partial Pressure O2 91 mmHG Arterial Blood Oxygen Content 15.2 Vol % Arterial Blood Carboxyhemoglobin 1.9 % Arterial Blood Methemoglobin 0.8 % Blood Gas Hemoglobin 11.3 G/DL Oxygen Delivery Device NASAL CANNULA Blood Gas Liter Flow 2 L/M Test 12/04/17 14:50 12/04/17 15:20 12/04/17 17:28 12/04/17 18:00 CSF Volume (Tube 1) 1.0 ML CSF Supernatant Color (tube 1) CLEAR CSF Gross Blood (Tube 1) 0 CSF Volume (Tube 2) 0.8 ML CSF Supernatant Color (tube 2) CLEAR CSF Gross Blood (Tube 2) 0 CSF Volume (Tube 3) 1.0 ML CSF Supernatant Color (tube 3) CLEAR CSF Gross Blood (Tube 3) 0 CSF Volume (Tube 4) 1.0 ML CSF Supernatant Color (tube 4) CLEAR CSF Gross Blood (Tube 4) 0 CSF WBC (Tube 4) 0 /MM3 CSF RBC (Tube 4) 1 /MM3 CSF Neutrophils 0 % CSF Lymphocytes 0 % CSF Glucose 53 MG/DL CSF Total Protein 49.0 MG/DL Blood Gas Puncture Site RT RADIAL Blood Gas Patient Temperature 98.6 Blood Gas HCO3 18 mmol/L Blood Gas Base Excess -6.6 mmol/L Blood Gas Oxygen Saturation 96 % Arterial Blood pH 7.38 Arterial Blood Partial Pressure CO2 30 mmHg Arterial Blood Partial Pressure O2 126 mmHg Arterial Blood Oxygen Content 15.2 Vol % Arterial Blood Carboxyhemoglobin 0.9 % Arterial Blood Methemoglobin 1.1 % Blood Gas Hemoglobin 11.1 G/DL Oxygen Delivery Device VENTILATOR Blood Gas Ventilator Setting Blood Gas Inspired Oxygen 40 % Nasal Screen MRSA (PCR) MRSA NOT DETECTED Test 12/04/17 18:54 12/05/17 00:43 12/05/17 03:30 Activated Partial Thromboplast Time 33.8 SEC Troponin I 10.30 NG/ML 9.65 NG/ML 12.80 NG/ML Vitamin B12 Level 1095 PG/ML Folate 14.0 NG/ML White Blood Count 10.4 TH/MM3 Red Blood Count 4.02 MIL/MM3 Hemoglobin 11.2 GM/DL Hematocrit 33.2 % Mean Corpuscular Volume 82.5 FL Mean Corpuscular Hemoglobin 27.8 PG Mean Corpuscular Hemoglobin Concent 33.7 % Red Cell Distribution Width 12.1 % Platelet Count 112 TH/MM3 Mean Platelet Volume 10.6 FL Neutrophils (%) (Auto) 69.1 % Lymphocytes (%) (Auto) 20.3 % Monocytes (%) (Auto) 10.2 % Eosinophils (%) (Auto) 0.0 % Basophils (%) (Auto) 0.4 % Neutrophils # (Auto) 7.2 TH/MM3 Lymphocytes # (Auto) 2.1 TH/MM3 Monocytes # (Auto) 1.1 TH/MM3 Eosinophils # (Auto) 0.0 TH/MM3 Basophils # (Auto) 0.0 TH/MM3 CBC Comment DIFF FINAL Differential Comment Blood Urea Nitrogen 28 MG/DL Creatinine 0.82 MG/DL Random Glucose 126 MG/DL Total Protein 5.7 GM/DL Albumin 2.9 GM/DL Calcium Level 8.0 MG/DL Alkaline Phosphatase 60 U/L Aspartate Amino Transf (AST/SGOT) 120 U/L Alanine Aminotransferase (ALT/SGPT) 76 U/L Total Bilirubin 0.9 MG/DL Sodium Level 143 MEQ/L Potassium Level 3.2 MEQ/L Chloride Level 108 MEQ/L Carbon Dioxide Level 22.9 MEQ/L Anion Gap 12 MEQ/L Estimat Glomerular Filtration Rate 68 ML/MIN Imaging Last [address] 12/04/17 1154 Signed Impressions: Service Date/Time: Monday, December 04, 2017 12:43 - CONCLUSION: Probable mild congestive failure with trace pleural effusions. No evidence for mass. Jean-Paul Hoffmann MD FACR Head CT 12/04/17 1126 Signed Impressions: Service Date/Time: Monday, December 04, 2017 12:37 - CONCLUSION: Stable brain appearance. No acute intracranial findings Anam Rojas MD Chest X-Ray 12/04/17 1126 Signed Impressions: Service Date/Time: Monday, December 04, 2017 11:27 - CONCLUSION: 1. Large central right hilar mass with volume loss. Contrasted CT chest recommended. Gideon Lin MD Assessment and Plan Problem List: (1) Paroxysmal atrial fibrillation with rapid ventricular response ICD Codes: I48.0 - Paroxysmal atrial fibrillation Plan: Back in . (2) Altered mental status ICD Codes: R41.82 - Altered mental status, unspecified Status: Acute (3) Severe sepsis ICD Codes: A41.9 - Sepsis, unspecified organism; R65.20 - Severe sepsis without septic shock Status: Acute (4) Non-ST elevation [place] (NSTEMI) ICD Codes: I21.4 - Non-ST elevation (NSTEMI) myocardial infarction Status: Acute (5) Cardiomyopathy ICD Codes: I42.9 - Cardiomyopathy, unspecified (6) CVA (cerebral infarction) ICD Codes: I63.9 - Cerebral infarction Status: Acute Assessment and Plan Complex patient - not suitable for laboratory immunologist intervention. Entertainment [employer] Manager is managing. Problem Qualifiers (1) Altered mental status: Rich Meza MD Dec 05, 2017 10:07
[2017-12-05] MEDS ORDERED: ALBUMIN 25% INJ 100 ML IV ONE ×2 (10:14→11:00)
--- NOTE | 2017-12-05 10:34 | HHI.CCPN ---
Subjective Remarks/Hospital Course 77-year-old female who is apparently very active at baseline, with past medical history significant for hypertension and previous TIA, tobacco abuse. She was seen last normal yesterday night at 7 PM. Her friends checked on her today morning and was found down, disoriented, staring off to the left, not answering questions. I am not able to get much further history from her. She has a fever of 101 in the ER, initially and then spiked to 103.7. ER workup included a CT scan of head which was negative for acute findings. Lab work showed a white count of 15.9 with left shift, lactic acid was 3.4, troponin was elevated at 8.7. Cardiology Dr. Meza was contacted aspirin was given patient was recommended to be started on IV heparin but was held for LP. Lumbar puncture was unremarkable nevertheless patient was started on meningitic doses of vancomycin and Rocephin. I have added ampicillin 2 g IV every 4 hours, and acyclovir 680 mg IV every 8 hours. I evaluated the patient in the ICU. Patient is severely altered tachypneic in moderate distress. Patient is aphasic with left gaze preference diminished movements of the right upper and lower extremity. A bedside echo shows reduced EF approximately 20-25%, global hypokinesis. Patient has no history of cardiomyopathy to my knowledge. At this time his stroke cannot be ruled out. Stat MRI MRA had been ordered. Due to altered mentation tachypnea and lack of airway protection patient was intubated and placed on mechanical ventilation SUBJ 12/05: Remains intubated sedated. MRI brain showing small punctate areas of signal abnormality in the posterior left temporal lobe-possible small focal areas of acute infarction. Also several areas of signal abnormality in the basal ganglia and left posterior temporal lobes likely from prior hemorrhage. Demyelination within the cerebral and pontine white matter likely from small vessel ischemic change. Neurology consult. Stat EEG is pending. Fever is down trending afebrile now, developed atrial fibrillation with RVR started on amiodarone infusion. I have resumed heparin infusion Objective Vital Signs Date Time Temp Pulse Resp B/P (MAP) Pulse Ox O2 Delivery O2 Flow Rate FiO2 12/05/17 07:43 100 40 12/05/17 06:00 89 12/05/17 06:00 24 75/45 (55) 12/05/17 04:00 98.3 12/05/17 03:59 Ventilator 4/20/18 21:42 15.00 Intake and Output 12/05/17 12/05/17 12/06/17 08:00 16:00 00:00 Intake Total 810 ml Output Total 350 ml Balance 460 ml Result Diagram: 12/05/17 0330 12/05/17 0330 Other Results Microbiology Date/Time Source Procedure Growth Status 12/04/17 11:40 Nasal Washing Influenza Types A,B Antigen (HARIKA) - Final NEGATIVE FOR FLU A AND B ANTIGEN.... Complete Laboratory Tests Test 12/04/17 14:03 12/04/17 17:28 Blood Gas Puncture Site RT RADIAL RT RADIAL Blood Gas Patient Temperature 98.6 98.6 Blood Gas HCO3 18 mmol/L (22-26) 18 mmol/L (22-26) Blood Gas Base Excess -5.0 mmol/L (-2-2) -6.6 mmol/L (-2-2) Blood Gas Oxygen Saturation 95 % (90-100) 96 % (90-100) Arterial Blood pH 7.50 (7.380-7.420) 7.38 (7.380-7.420) Arterial Blood Partial Pressure CO2 23 mmHG (38-42) 30 mmHg (38-42) Arterial Blood Partial Pressure O2 91 mmHG (61-120) 126 mmHg (61-120) Arterial Blood Oxygen Content 15.2 Vol % (12.0-20.0) 15.2 Vol % (12.0-20.0) Arterial Blood Carboxyhemoglobin 1.9 % (0-4) 0.9 % (0-4) Arterial Blood Methemoglobin 0.8 % (0-2) 1.1 % (0-2) Blood Gas Hemoglobin 11.3 G/DL (12.0-16.0) 11.1 G/DL (12.0-16.0) Oxygen Delivery Device NASAL CANNULA VENTILATOR Blood Gas Liter Flow 2 L/M Blood Gas Ventilator Setting Blood Gas Inspired Oxygen 40 % Imaging CT of the head negative for acute findings CT chest mild pulmonary vascular congestion Objective Remarks GENERAL: Elderly female intubated sedated with propofol SKIN: Dry HEAD: Atraumatic. Normocephalic. EYES: Pupils equal and round, reactive. No scleral icterus. Left gaze preference ENT: No nasal bleeding or discharge. Orotracheally intubated NECK: Trachea midline. No JVD. CARDIOVASCULAR: Tachycardic rate and rhythm, atrial fibrillation. No murmur appreciated. Bedside echo shows EF approximately 25% on my eval, global hypokinesis RESPIRATORY: On ACV mode. Bilateral coarse breath sounds GASTROINTESTINAL: Abdomen soft, non-tender, nondistended. MUSCULOSKELETAL: No obvious deformities. No clubbing. No cyanosis. No edema. NEUROLOGICAL: Remains sedated. Spontaneously moving extremities, withdraws to pain except right upper extremity. Pupils equal reactive Urinary Catheter: Yes Assessment to: Continue A/P Assessment and Plan NEURO: Acute encephalopathy Rule out meningitis/encephalitis Rule out acute CVA vs seizure -Intubated for airway protection and to facilitate studies, propofol for sedation and vent synchrony -Start daily sedation location -CT of the head stat negative acute findings -MRI-Small punctate areas of signal abnormality in the posterior left temporal lobe which may represent small focal areas of acute infarction. Also several areas of signal abnormality in the basal ganglia and left posterior temporal lobes likely from prior hemorrhage. Demyelination within the cerebral and pontine white matter likely from small vessel ischemic change. -MRA essentially negative -Stat EEG ordered -Continue meningitic doses of antibiotics vancomycin, Rocephin. Added ampicillin , acyclovir RESP: Acute respiratory failure from lack of airway protection Probable COPD -Intubated for airway protection. ACV 16/500/50%/5 -DuoNeb every 4 hours scheduled and as needed, ventilator bundle -Sputum [id number] -Meningitic antibiotic should cover for any pulmonary infection -No ventilator weaning until her mentation improved CV: NSTEMI Cardiomyopathy, reduced EF Possible viral myocarditis Atrial fibrillation with RVR -s/p Normal saline 2L bolus and 84 ml per hour. Give additional 5 mL bolus normal saline and 25 g of IV albumin due to hypotension -Bedside echo shows EF approximately 25%, global hypokinesis -Levophed if needed to keep MAP>65 -Continue IV amiodarone, start IV heparin. continue aspirin -Official echo pending at this time -Hold metoprolol 25 mg p.o. every 12, due to hypotension -Cardiology consulted, Dr. Meza GI: -NPO, start tube feeds with Jevity famotidine : -Monitor renal function closely. Baca catheter. ID: -Continue meningitic doses of antibiotics vancomycin, Rocephin, ampicillin, acyclovir -F/u lumbar puncture cultures blood culture urine culture and sputum culture. No indication for acute infection on LP -Infectious diseases Dr. Amaro HEME: -Monitor CBC, CMP, coags ENDO: -Electrolyte replacement protocol PROPH: -Bilateral lower extremity SCDs. IV heparin, famotidine. SCDs/KRAIG LINES: -Utilize peripheral IVs, central line if needed CC time 40 min excluding procedures excluding procedures Remains critically ill with severe encephalopathy, sepsis and respiratory failure. With multiorgan involvement prognosis is guarded at this time. EF is 20-25% on my estimate, troponin peaked at 12.5 not a candidate for cardiac catheterization at this time. Further recommendations per clinical course Chavo Mendieta MD Dec 05, 2017 10:34
--- NOTE | 2017-12-05 10:52 | MB ---
cc: Sae Hayward MD DATE: 12/05/2017 HISTORY OF PRESENT ILLNESS: She was admitted yesterday. The patient was apparently found down. It appears that she was inside the house and the car was running in the driveway and this was yesterday morning. She had some gaze preference and she had an MRI brain that was reviewed. There are left posterior temporal regions there of probable acute ischemia. Lumbar puncture was negative, as she had a high temperature. No apparent atrial fibrillation. She is being evaluated by cardiology for [place]. There is a history of hypertension and TIA. NEUROLOGIC EXAMINATION: Shows the patient to be intubated, not following commands. Eyes seem to be mildly deviated to the right and down. There is some nystagmus. No obvious facial asymmetry. Upon somatosensory stimulation, she starts moving the left side clearly better than the right. Reflexes present, but diminished. Plantar responses probably flexor. DIAGNOSTIC STUDIES: The MRI brain also shows an area of old small/micro hemorrhages in the basal ganglia and left posterior temporal. Otherwise, ischemic demyelination. LABORATORY DATA: CBC with white count initially 15.9, but today is 10.4. Toxicology negative. Sodium 143, potassium 3.2, BUN 28, creatinine 0.82, sodium 126. AST 120, ALT is 76. Troponin 12.8 today, initially at 10.3. CSF showing 0 WBC, 1 RBC, glucose 53, protein 49. ASSESSMENT AND PLAN: Acute encephalopathy with possible/probable left posterior temporal ischemia, right hemiparesis. Suspect ongoing seizures. Electroencephalogram should be done stat. It does not appear to be meningoencephalitis. Cardiac dysfunction, low ejection fraction, possible cardiac embolism. Cardiology on board. Echo pending. Discussed with Dr. Mendieta. I will follow the neurological course and review EEG as soon as possible. Thank you for asking us to assist in her care. Sae Hayward MD OFC/KD , 10:17 AM , 10:51 AM
[2017-12-05] MEDS ORDERED: SODIUM CHLORID 0.9% 500 ML INJ 500 ML IV ONE ×2 (11:00→23:45)
[2017-12-05 11:16] LABS: INTERNATIONAL NORMALIZED RATIO 1.2 RATIO; PROTHROMBIN TIME - PATIENT 12.3 SEC (9.8-11.6)
[2017-12-05] MEDS ORDERED: MIDAZOLAM HCL 5 MG/ML VIAL (1 ML) ONE (12:50)
--- NOTE | 2017-12-05 13:19 | PD.PROCEDR ---
Central Line Procedure REASON FOR PROCEDURE Central venous access PROCEDURE PERFORMED Central line placement: Right subclavian central line CONSENT Informed consent for procedure was obtained and time out performed. The risks and benefits of the procedure were discussed to include but limited to bleeding , clot formation, infection, and even . ANESTHESIA Local injection of 1% Lidocaine DESCRIPTION OF THE PROCEDURE The patient was placed in supine, mild Trendelenburg position. The area was exposed and cleansed with ChloraPrep, times two. Large sterile drape was used to cover the patient, with the site exposed, under sterile conditions including cap, face mask, sterile gown, and sterile gloves. On single attempt, the introducer needle was inserted with negative pressure in syringe and venous flash was obtained. The guide wire was then advanced without any restriction and the needle was removed. The dilator was used without any complications. Using Seldinger technique the 20 cm 7F triple lumen catheter was advanced over the guide wire to a depth of 17 centimeters. The guide wire was removed. All ports were aspirated with dark venous blood return and flushed easily with sterile saline. All ports were capped. Antibiotic disc was placed around central line at puncture site. The central line was secured to the skin with two interrupted 2.0 silk sutures. The area was bandaged with sterile see- through central line bandage. A Stat lock was not used as patient was of short stature and small body frame making it difficult to use Stat Lock COMPLICATIONS: No apparent complications ESTIMATED BLOOD LOSS: Less than 1 cc. Chavo Mendieta MD Dec 05, 2017 13:19
[2017-12-05] MEDS ORDERED: MIDAZOLAM HCL 5 MG/ML VIAL (1 ML) IV ONE (13:30)
--- NOTE | 2017-12-05 13:35 | MG ---
cc: Sae Hayward MD INDICATION: An EEG was obtained on this 77-year-old patient with decreased responsiveness and possible seizures. MEDICATIONS: The patient is intubated. Diprivan on board. DESCRIPTION: The EEG shows a continuous attenuation and slower rhythms on the left hemisphere. There are some faster rhythms on the right and decreased amount of theta and delta on the right in comparison to the left. The asymmetry persists throughout. Photic stimulation shows some possible response on the right, but not on the left. INTERPRETATION: Abnormal electroencephalogram because of continuing left hemispheric slowing and attenuation suggesting underlying prominent left hemisphere structural abnormality. The patient appeared to be following commands towards the end of the EEG. No epileptiform features present. MD KEITH Wiley/KD , 12:54 PM , 01:34 PM
--- NOTE | 2017-12-05 13:35 | ECHRPT ---
Indication: +TROPONIN CONCLUSIONS Normal left ventricular size. Mild concentric left ventricular hypertrophy. The left ventricular systolic function is severely reduced with an estimated ejection fraction in th e range of 30-35%. There are findings consistent with dilated cardiomyopathy. The right ventricle is moderately dilated. The right ventricular systoilc function is moderately to severely decreased. Ejection fraction 20 at the most 25%. The left atrial size is qucl-ud-lkkqpzmktq dilated. The right atrial size is moderately dilated. Trace mitral valve regurgitation. Aortic valve sclerosis is present. Trace aortic valve regurgitation. There is moderate tricuspid regurgitation. The estimated pulmonary arterial pressure is 33 mmHg. A right sided pleural effusion is present. BP: 75 / 45 HR: 89 Rhythm: Sinus MEASUREMENTS (Male / Female) Normal Values Technical Quality:Fair 2D ECHO LV Diastolic Diameter PLAX 4.4 cm 4.2 - 5.9 / 3.9 - 5.3 cm LV Systolic Diameter PLAX 3.8 cm IVS Diastolic Thickness 1.0 cm 0.6 - 1.0 / 0.6 - 0.9 cm LVPW Diastolic Thickness 1.0 cm 0.6 - 1.0 / 0.6 - 0.9 cm LV Relative Wall Thickness 0.4 RV Internal Dim ED PLAX 3.2 cm LVOT Diameter 2.0 cm Aortic Root Diameter 3.1 cm LA Systolic Diameter LX 3.4 cm 3.0 - 4.0 / 2.7 - 3.8 cm M-MODE AV Cusp Separation MM 1.6 cm DOPPLER AV Peak Velocity 112.0 cm/s AV Peak Gradient 5.0 mmHg AV Mean Gradient 3.0 mmHg AV Velocity Time Integral 13.6 cm LVOT Peak Velocity 66.9 cm/s LVOT Peak Gradient 1.8 mmHg LVOT Velocity Time Integral 10.2 cm AV Area Cont Eq vti 2.4 cm AV Area Cont Eq pk 1.9 cm Mitral E Point Velocity 48.4 cm/s Mitral A Point Velocity 62.2 cm/s Mitral E to A Ratio 0.8 LV E' Lateral Velocity 4.0 cm/s Mitral E to LV E' Lateral Ratio 12.1 LV E' Septal Velocity 4.0 cm/s Mitral E to LV E' Septal Ratio 12.1 TR Peak Velocity 238.0 cm/s TR Peak Gradient 22.7 mmHg Right Atrial Pressure 10.0 mmHg Pulmonary Artery Systolic Pressu 32.7 mmHg Right Ventricular Systolic Press 32.7 mmHg PV Peak Velocity 50.4 cm/s PV Peak Gradient 1.0 mmHg FINDINGS LEFT VENTRICLE Normal left ventricular size. Mild concentric left ventricular hypertrophy. The left ventricular systolic function is severely reduced with an estimated ejection fraction in th e range of 20-25%. There are findings consistent with dilated cardiomyopathy. RIGHT VENTRICLE The right ventricle is moderately dilated. The right ventricular systoilc function is moderately decreased. LEFT ATRIUM The left atrial size is zmpo-bc-ccqssaarfq dilated. RIGHT ATRIUM The right atrial size is moderately dilated. ATRIAL SEPTUM No atrial level shunt is demonstrated by color flow Doppler interrogation. AORTA The aortic root and proximal ascending aorta are not well visualized. MITRAL VALVE Trace mitral valve regurgitation. AORTIC VALVE Aortic valve sclerosis is present. Trace aortic valve regurgitation. TRICUSPID VALVE There is moderate tricuspid regurgitation. The estimated pulmonary arterial pressure is 33 mmHg. PULMONARY VALVE The pulmonary valve is not well visualized. VESSELS The inferior vena cava is normal in size. PERICARDIUM No pericardial effusion. A right sided pleural effusion is present. Hanna Still MD (Electronically Signed) Final Date:05 December 2017 13:34
--- NOTE | 2017-12-05 14:34 | RADRPT ---
EXAM DATE/TIME: 12/05/2017 13:23 [facility] COMPARISON: CHEST SINGLE AP, December 04, 2017, 17:29. INDICATIONS : Central line placement. MEDICAL HISTORY : Hypertension. SURGICAL HISTORY : ORIF humerus. ENCOUNTER: Initial ACUITY: 2 days PAIN SCORE: Non-responsive. LOCATION: Bilateral chest FINDINGS: A single view of the chest demonstrates interval placement of a right subclavian central venous zi ter with tip projecting over the central venous system. No pneumothorax. Lungs remain hyperinflated w ith bibasilar atelectatic changes. Heart size is prominent but well compensated. Endotracheal tube at the clavicular heads. Nasogastric tube curled in the gastric lumen. Medullary malaika and screws secure the right humerus. CONCLUSION: 1. Interval placement of a right subclavian central venous catheter with the tip projecting over the central venous system. No pneumothorax 2. Lungs remain hyperinflated with probable bibasilar atelectasis. 3. Compensated cardiomegaly. Mahendra Poe MD on December 05, 2017 at 14:30 Board Certified Radiologist. This report was verified electronically.
[2017-12-05] MEDS: HEPARIN-D5W 25,000 U/250 ML 250 ML IV PRN (15:39)
[2017-12-05] MEDS ORDERED: POTASSIUM CHLOR 20 MEQ PREMIX 100 ML IV PRN ×2 (15:45)
[2017-12-05] MEDS ORDERED: POTASSIUM CHLOR 40 MEQ PREMIX 100 ML IV-CENTRAL PRN (15:45)
[2017-12-05] MEDS ORDERED: MAGNESIUM SULFATE INJ 4 GM in SODIUM CHLORIDE 0.9% INJ 92 ML IV PRN (15:45)
[2017-12-05] MEDS ORDERED: MAGNESIUM SULFATE INJ 2 GM in SODIUM CHLORIDE 0.9% INJ 96 ML IV PRN (15:45)
[2017-12-05] MEDS ORDERED: MAGNESIUM OXIDE 400 MG TAB PO PRN (15:45)
[2017-12-05] MEDS ORDERED: POTASSIUM PHOSPHATE MONOBASIC 500 MG TAB PO PRN (15:45)
[2017-12-05] MEDS ORDERED: POTASSIUM CHLORIDE 25 MEQ EFFERVESCENT TAB PO PRN (15:45)
[2017-12-05] MEDS ORDERED: POTASSIUM PHOSPHATE INJ 30 MMOL in SODIUM CHLOR 0.9% 250 ML INJ 250 ML IV PRN (15:45)
[2017-12-05] MEDS ORDERED: SODIUM PHOSPHATE INJ 30 MMOL in SODIUM CHLOR 0.9% 250 ML INJ 240 ML IV PRN (15:45)
[2017-12-05] MEDS ORDERED: POTASSIUM PHOSPHATE MONOBASIC 500 MG TAB PO/TUBE PRN (15:45)
[2017-12-05] MEDS: THIAMINE INJ 100 MG in SODIUM CHLORIDE 0.9% INJ 100 ML IV SCH (17:21)
[2017-12-05] MEDS: POTASSIUM CHLOR 40 MEQ PREMIX 100 ML IV-CENTRAL PRN ×2 (17:21→21:37)
[2017-12-05] MEDS: NOREPINEPHRINE 4 MG/D5W 250 ML IV PRN (18:17)
[2017-12-05] MEDS: cefTRIAXone INJ 2,000 MG in SODIUM CHLORIDE 0.9% INJ 100 ML IV SCH (23:27)
[2017-12-06] VITALS (29 sets, daily range): BP systolic 99–160; BP diastolic 47–100; PULSE 60–145; RESP 20–52; TEMP 94–99; O2SAT 92–100
[2017-12-06] MEDS: VASOPRESSIN INJ 40 UNITS in DEXTROSE 5% IN WATER 100ML INJ 98 ML IV SCH ×4 (00:05→23:57)
[2017-12-06] MEDS: RESP: ALBUTEROL 2.5 MG/IPRATROPIUM 0.5 MG NEB (SCH) INH ×7 (00:59→20:21)
[2017-12-06] MEDS: SODIUM CHLOR 0.9% 1000 ML INJ 1,000 ML IV SCH ×2 (01:59→06:18)
[2017-12-06] MEDS: INSULIN NovoLIN REGULAR SUPPLEMENTAL SCALE SQ SCH ×6 (02:00→21:05)
[2017-12-06] MEDS: ACYCLOVIR IV SCH ×2 (02:06→11:44)
[2017-12-06] MEDS: SODIUM CHLORIDE 0.9% IV SCH ×2 (02:06→11:44)
[2017-12-06] MEDS: NOREPINEPHRINE 4 MG/D5W 250 ML IV PRN (03:10)
[2017-12-06] MEDS: VANCOMYCIN INJ 1,000 MG in SODIUM CHLOR 0.9% 250 ML INJ 250 ML IV SCH (03:20)
[2017-12-06] MEDS: CHLORHEXIDINE GLUCONATE 2 % 1 PACK (2 CLOTHS) TOP SCH (04:00)
[2017-12-06] MEDS: PROPOFOL 1000 MG/100 ML INJ 100 ML IV PRN ×2 (05:04→18:35)
[2017-12-06] MEDS: AMIODARONE INJ 450 MG in SODIUM CHLOR 0.9% (EXCEL) INJ 241 ML IV SCH ×2 (05:07→19:56)
[2017-12-06 05:39] LABS: AUTOMATED NEUTROPHIL # 10.2 TH/MM3 (1.8-7.7); BASOPHIL % 0.4 % (0.0-2.0); HEMATOCRIT 31.8 % (35.0-46.0); HEMOGLOBIN 10.5 GM/DL (11.6-15.3); LYMPH % 13.2 % (9.0-44.0); LYMPHOCYTE # 1.7 TH/MM3 (1.0-4.8); MEAN CELL VOLUME 82.7 FL (80.0-100.0); MEAN CORPUSCULAR HEMOGLOBIN 27.2 PG (27.0-34.0); MEAN PLATELET VOLUME 10.7 FL (7.0-11.0); MONO % 6.6 % (0.0-8.0); MONOCYTE # 0.8 TH/MM3 (0-0.9); NEUT % 79.8 % (16.0-70.0); PLATELET COUNT 116 TH/MM3 (150-450); RED BLOOD COUNT 3.84 MIL/MM3 (4.00-5.30); RED CELL DISTRIBUTION WIDTH 12.2 % (11.6-17.2); WHITE BLOOD COUNT 12.7 TH/MM3 (4.0-11.0)
[2017-12-06 06:04] LABS: ALBUMIN 2.8 GM/DL (3.4-5.0); CALCIUM-PROTEIN CORRECTED 7.9 MG/DL (8.5-10.1); CREATININE 2.02 MG/DL (0.50-1.00); MAGNESIUM 2.5 MG/DL (1.5-2.5); PHOSPHORUS 5.8 MG/DL (2.5-4.9); TOTAL BILIRUBIN ADULT 0.8 MG/DL (0.2-1.0); TOTAL PROTEIN 5.4 GM/DL (6.4-8.2)
[2017-12-06 07:21] LABS: AMORPHOUS SEDIMENT, URINE FEW; BACTERIA, URINE MOD /hpf; BILIRUBIN, URINE NEG (NEG); BLOOD, URINE LARGE (NEG); GLUCOSE,URINE TRACE mg/dL (NEG); KETONE, URINE TRACE mg/dL (NEG); MUCUS URINE FEW /lpf (OCC); NITRITE,URINE NEG (NEG); PH, URINE 5.5 (5.0-8.5); SQUAMOUS EPITHELIAL CELL URINE 2 /hpf (0-5); URINE LEUKOCYTE ESTERASE MOD (NEG); WHITE BLOOD CELL CLUMPS OCC
[2017-12-06 07:42] LABS: CREATININE, RANDOM URINE 79.2 MG/DL
[2017-12-06 07:44] LABS: URINE COLOR LIGHT-BROWN (YELLW/STRAW)
[2017-12-06] MEDS: CHLORHEXIDINE 0.12% (ORAL KIT) 15 ML CUP MT SCH ×2 (08:30→20:00)
[2017-12-06] MEDS: FAMOTIDINE 20 MG TAB PO SCH ×2 (08:32→20:49)
--- NOTE | 2017-12-06 08:32 | HHI.CCPN ---
Subjective Remarks/Hospital Course 77-year-old female who is apparently very active at baseline, with past medical history significant for hypertension and previous TIA, tobacco abuse. She was seen last normal yesterday night at 7 PM. Her friends checked on her today morning and was found down, disoriented, staring off to the left, not answering questions. I am not able to get much further history from her. She has a fever of 101 in the ER, initially and then spiked to 103.7. ER workup included a CT scan of head which was negative for acute findings. Lab work showed a white count of 15.9 with left shift, lactic acid was 3.4, troponin was elevated at 8.7. Cardiology Dr. Meza was contacted aspirin was given patient was recommended to be started on IV heparin but was held for LP. Lumbar puncture was unremarkable nevertheless patient was started on meningitic doses of vancomycin and Rocephin. I have added ampicillin 2 g IV every 4 hours, and acyclovir 680 mg IV every 8 hours. I evaluated the patient in the ICU. Patient is severely altered tachypneic in moderate distress. Patient is aphasic with left gaze preference diminished movements of the right upper and lower extremity. A bedside echo shows reduced EF approximately 20-25%, global hypokinesis. Patient has no history of cardiomyopathy to my knowledge. At this time his stroke cannot be ruled out. Stat MRI MRA had been ordered. Due to altered mentation tachypnea and lack of airway protection patient was intubated and placed on mechanical ventilation SUBJECTIVE: 12/05: Remains intubated sedated. MRI brain showing small punctate areas of signal abnormality in the posterior left temporal lobe-possible small focal areas of acute infarction. Also several areas of signal abnormality in the basal ganglia and left posterior temporal lobes likely from prior hemorrhage. Demyelination within the cerebral and pontine white matter likely from small vessel ischemic change. Neurology consult. Stat EEG is pending. Fever is down trending afebrile now, developed atrial fibrillation with RVR started on amiodarone infusion. I have resumed heparin infusion. 12/06: Afebrile. Last evening the patient had decreased mat requiring additional pressor support vasopressin added to medication regimen and diminished urinary output. Patient was noted to have significant elevation in creatinine this a.m. Patient remains on vasopressin and norepinephrine vasopressor support. Patient continues on amiodarone infusion, plan to transition to p.o.. Sedation vacation initiated yesterday for EEG, per report patient following commands. Sedation vacation in progress at this time. Noticed slight elevation in WBC count, repeat urine culture pending. Objective Vital Signs Date Time Temp Pulse Resp B/P (MAP) Pulse Ox O2 Delivery O2 Flow Rate FiO2 12/06/17 06:00 66 21 116/57 (76) 100 12/06/17 04:00 97.5 12/06/17 04:00 40 12/05/17 03:59 Ventilator 12/04/17 21:42 15.00 Intake and Output 12/06/17 12/06/17 12/07/17 08:00 16:00 00:00 Intake Total 2724.5 ml Output Total 55 ml Balance 2669.5 ml Result Diagram: 12/06/17 0515 12/06/17 0515 Other Results Microbiology Date/Time Source Procedure Growth Status 12/04/17 11:40 Nasal Washing Influenza Types A,B Antigen (HARIKA) - Final NEGATIVE FOR FLU A AND B ANTIGEN.... Complete Imaging Last Impressions Chest X-Ray 12/05/17 0000 Signed Impressions: Service Date/Time: Tuesday, December 05, 2017 13:23 - CONCLUSION: 1. Interval placement of a right subclavian central venous catheter with the tip projecting over the central venous system. No pneumothorax 2. Lungs remain hyperinflated with probable bibasilar atelectasis. 3. Compensated cardiomegaly. Mahendra Poe MD Chest CT 12/04/17 1154 Signed Impressions: Service Date/Time: Monday, December 04, 2017 12:43 - CONCLUSION: Probable mild congestive failure with trace pleural effusions. No evidence for mass. Jean-Paul Hoffmann MD FACR Head CT 12/04/17 1126 Signed Impressions: Service Date/Time: Monday, December 04, 2017 12:37 - CONCLUSION: Stable brain appearance. No acute intracranial findings Anam Rojas MD Neck Magnetic Resonance Angiography 12/04/17 0000 Signed Impressions: Service Date/Time: Monday, December 04, 2017 20:36 - CONCLUSION: 1. Mild plaque at the right carotid bulb/proximal internal carotid artery without significant stenosis. 2. Significant opacification of the aortic arch and origins of the great vessels is not present. These areas cannot be evaluated. Anam Donis MD Head Magnetic Resonance Angiography 12/04/17 0000 Signed Impressions: Service Date/Time: Monday, December 04, 2017 20:36 - CONCLUSION: No acute disease. Anam Donis MD Brain MRI 12/04/17 0000 Signed Impressions: Service Date/Time: Monday, December 04, 2017 20:36 - CONCLUSION: 1. Small punctate areas of signal abnormality in the posterior left temporal lobe which may represent small focal areas of acute infarction. 2. Several areas of signal abnormality in the basal ganglia and left posterior temporal lobes likely from prior hemorrhage. 3. Demyelination within the cerebral and pontine white matter likely from small vessel ischemic change. Anam Donis MD Objective Remarks GENERAL: Elderly female intubated sedated on propofol infusion SKIN: Warm and dry HEAD: Atraumatic. Normocephalic. EYES: Pupils equal and round, 2 mm brisk and reactive. No scleral icterus. Left gaze preference ENT: No nasal bleeding or discharge. Orotracheally intubated NECK: Trachea midline. No JVD. CARDIOVASCULAR: Regular rate and rhythm, telemetry sinus rhythm. S1 S2, no murmurs. RESPIRATORY: On ACV mode. Bilateral coarse breath sounds GASTROINTESTINAL: Abdomen soft, non-tender, nondistended. MUSCULOSKELETAL: No obvious deformities. No clubbing. No cyanosis. Bilateral upper extremity 1+ peripheral edema NEUROLOGICAL: Remains sedated. Spontaneously moving extremities, withdraws to pain except right upper extremity. Pupils equal reactive A/P Problem List: (1) Lactic acidemia ICD Code: E87.2 - Acidosis Status: Acute (2) Paroxysmal atrial fibrillation with rapid ventricular response ICD Code: I48.0 - Paroxysmal atrial fibrillation Status: Acute (3) Cardiomyopathy ICD Code: I42.9 - Cardiomyopathy, unspecified Status: Chronic (4) Acute metabolic encephalopathy ICD Code: G93.41 - Metabolic encephalopathy Status: Acute (5) Non-ST elevation [place] (NSTEMI) ICD Code: I21.4 - Non-ST elevation (NSTEMI) myocardial infarction Status: Acute (6) Severe sepsis ICD Code: A41.9 - Sepsis, unspecified organism; R65.20 - Severe sepsis without septic shock Status: Acute (7) Altered mental status ICD Code: R41.82 - Altered mental status, unspecified Status: Acute (8) Hypertension ICD Code: I10 - Hypertension Status: Chronic (9) LAI (acute kidney injury) ICD Code: N17.9 - Acute kidney failure, unspecified Status: Acute (10) Metabolic acidosis ICD Code: E87.2 - Acidosis Status: Acute Assessment and Plan NEURO: Acute encephalopathy Rule out meningitis/encephalitis Rule out acute CVA vs seizure -Intubated for airway protection and to facilitate studies, propofol for sedation and vent synchrony -Start daily sedation location -CT of the head stat negative acute findings -MRI-Small punctate areas of signal abnormality in the posterior left temporal lobe which may represent small focal areas of acute infarction. Also several areas of signal abnormality in the basal ganglia and left posterior temporal lobes likely from prior hemorrhage. Demyelination within the cerebral and pontine white matter likely from small vessel ischemic change. -MRA essentially negative -12/04 EEG -left hemispheric slowing possible left hemispheric structural abnormality. No epileptiform activity -ID following see below , meningitic doses of antibiotics vancomycin, Rocephin. acyclovir, ampicillin discontinue -Follow-up lumbar puncture results RESP: Acute respiratory failure from lack of airway protection Probable COPD -12/04 Intubated for airway protection. ACV 16/500/50%/5 -DuoNeb every 4 hours scheduled and as needed, ventilator bundle -Sputum [id number] -Meningitic antibiotic should cover for any pulmonary infection -No ventilator weaning until her mentation improved -12/06 begin CPAP trials when clinically indicated -ABG 7.26/30/190/13/-12.3-sodium bicarbonate given CV: NSTEMI Cardiomyopathy, reduced EF Possible viral myocarditis Atrial fibrillation with RVR Hypotension -s/p Normal saline 2L bolus and 84 ml per hour., Discontinued 12/06-sodium bicarbonate infusion initiated -Bedside echo shows EF approximately 25%, global hypokinesis -12/05 Levophed and vasopressin to keep MAP>65 -Continue IV amiodarone, start IV heparin. continue aspirin. Consider transitioning amiodarone to PO will defer to cardiology -Official echo pending at this time- The left ventricular systolic function is severely reduced with an estimated ejection fraction in the range of 30-35%. There are findings consistent with dilated cardiomyopathy. The right ventricle is moderately dilated. The right ventricular systoilc function is moderately to severely decreased. .Ejection fraction 20 at the most 25%. Trace mitral valve regurgitation. Trace aortic valve regurgitation. There is moderate tricuspid regurgitation. The estimated pulmonary arterial pressure is 33 mmHg. Right sided pleural effusion is present. -Hold metoprolol 25 mg p.o. every 12, due to hypotension -Cardiology following Dr. Meza GI: - Jevity 20 cc/hour - famotidine GI prophylaxis -Bowel regimen / FEN: AK I Severe metabolic acidosis -Monitor renal function closely. Baca catheter. -AK I secondary to hypotension on 12/05, requiring vasopressor support. Continue to monitor -12/06 sodium bicarbonate infusion 75 cc/hr initiated ID: -Continue meningitic doses of antibiotics vancomycin, Rocephin,and acyclovir. Ampicillin discontinued 12/05 -F/u lumbar puncture cultures blood culture urine culture and sputum culture. No indication for acute infection on LP -Infectious diseases following Dr. Amaro - 12/06 follow-up repeat urine culture HEME: -Monitor CBC, CMP, coags ENDO: Electrolyte abnormality -Electrolyte replacement protocol PROPH: -Bilateral lower extremity SCDs. IV heparin infusion , famotidine. SCDs/KRAIG LINES: -Utilize peripheral IVs, central line right subclavian (12/05) my billing statement This patient remains critically ill with one or more organ systems which are or may become a threat to life. I have spent in excess of 30 minutes discontinuously in the care and management of this patient. This time is exclusive of procedures, and includes, but is not limited to, evaluation of the patient, review of the medical record, discussions with family, consultants, nursing staff, or respiratory therapy, and documentation in the medical record.Remains critically ill with severe encephalopathy, sepsis and respiratory failure. With multiorgan involvement prognosis is guarded at this time. Discussed with REVIT DRAFTER at bedside (Courtney) Physician Evelin De La Vega Problem Qualifiers (1) Altered mental status: (2) Hypertension: Qualified Codes: I10 - Essential (primary) hypertension Evelin De La Vega MD Dec 06, 2017 08:32
[2017-12-06] MEDS: SODIUM CHLORIDE FLUSH BID IV FLUSH SCH ×2 (08:37→20:50)
[2017-12-06] MEDS: SODIUM CHLORIDE 0.9% FLUSH 10 ML FLUSH IVF PRN (08:38)
[2017-12-06] MEDS: DOCUSATE SODIUM 50 MG/SENNA 8.6 MG TAB PO SCH ×2 (08:38→20:49)
[2017-12-06] MEDS: METOPROLOL TARTRATE 25 MG TAB PO SCH ×2 (08:38→20:50)
[2017-12-06] MEDS ORDERED: SODIUM BICARBONATE 8.4% INJ 50 MEQ/50 ML SYR IV PUSH ONE (09:00)
[2017-12-06] MEDS: SODIUM BICARBONATE 8.4% INJ 150 MEQ in DEXTROSE 5% IN WATE 1000ML INJ 1,000 ML IV SCH ×4 (10:01→23:57)
--- NOTE | 2017-12-06 14:14 | HHI.IDPN ---
Subjective Subjective Remarks ID COVERAGE Ms. Rausch is a 77-year-old female who reportedly is very active at baseline. The nurse taking care of the patient reports to me the patient was expected to be at the gym and when she did not show up of friends into the home and was found down, disoriented, staring off to the left not answering any questions. Her past medical history significant for hypertension, previous TIA and tobacco abuse. Patient was reportedly seen normal at 7 PM the night before when she was attending a car show. When in the emergency room her temperature was 101 and it spiked 203.7. ER workup included a CT scan which is negative for acute findings. Lab workup showed WBC 15.9 with a leftward shift, elevated lactic acid at 3.4 and an elevated troponin and 8.7. Cardiology was consulted and patient was given aspirin and recommended that IV heparin be started. IV heparin was not started because of lumbar puncture. Upon review of the numbers for lumbar puncture appears unremarkable with the minimal elevation of total protein. Patient had a sepsis workup initiated and started on meningitis doses for vancomycin and Rocephin, ampicillin as well as acyclovir IV. All the lumbar puncture studies as well as blood cultures are pending at the present time. Patient was found to be a phasic with a leftward gaze and diminished movements of the right upper and lower extremities. Patient was intubated for airway protection. A 2D echo done showed 20-25% EF with global hypokinesis. No prior history of any seizure disorder per review of records. No reported history of drug abuse. Infectious disease is consulted for evaluation and management of possible meningitis. Notes reviewed On warming blanket On levophed Off vasopressin Sedated on the vent WBC slightly up CSF C/S negative Sputum normal angelika CXR basilar atelectasis LP ok MRI brain noted CT chest, prob mild CHF and trace effusions Antibiotics Vancomycin Rocephin Acyclovir Current Medications Medications (Trade) Dose Ordered Sig/April Route Start Time Stop Time Status Last Admin (Duoneb Neb) 1 ampule Q4HR NEB INH 12/04/17 16:00 12/06/17 11:34 (Duoneb Neb) 1 ampule Q2HR NEB PRN INH 12/04/17 14:00 Miscellaneous Information 1 Q361D XX 12/04/17 14:00 (Chlorhexidine 2% Cloth) 3 pack Taper DAILY@04 TOP 12/05/17 04:00 4/17/19 03:59 12/06/17 04:00 (Chlorhexidine 2% Cloth) 3 pack UNSCH PRN TOP 12/04/17 14:00 (Mera-Colace) 1 tab BID PO 12/04/17 21:00 12/05/17 08:38 (Milk Of Magnesia Liq) 30 ml Q12H PRN PO 12/04/17 14:00 (Senokot) 17.2 mg Q12H PRN PO 12/04/17 14:00 (Dulcolax Supp) 10 mg DAILY PRN RECTAL 12/04/17 14:00 (Lactulose Liq) 30 ml DAILY PRN PO 12/04/17 14:00 Vancomycin HCl 1000 mg/Sodium Chloride 250 ml @ 250 mls/hr Q12H IV 12/04/17 15:00 12/06/17 03:20 (D50w (Vial) Inj) 50 ml UNSCH PRN IV PUSH 12/04/17 14:00 (Glucagon Inj) 1 mg UNSCH PRN OTHER 12/04/17 14:00 (NovoLIN R SUPPLEMENTAL SCALE) 1 Q4H SQ 12/04/17 14:00 12/06/17 10:00 (Lopressor) 25 mg Q12HR PO 12/04/17 21:00 12/04/17 19:49 Acyclovir Sodium 680 mg/Sodium Chloride 100 ml @ 100 mls/hr Q8H IV 12/04/17 18:00 12/06/17 11:44 Thiamine HCl 100 mg/Sodium Chloride 101 ml @ 101 mls/hr DAILY@1800 IV 12/04/17 18:00 12/05/17 17:21 (Peridex 0.12% Liq) 15 ml BID@08,20 MT 12/04/17 20:00 12/06/17 08:30 Propofol 100 ml @ 2.04 mls/hr TITRATE PRN IV 12/04/17 17:30 12/06/17 05:04 (NS Flush) 2 ml UNSCH PRN IVF 12/05/17 04:15 12/06/17 08:38 (NS Flush) 2 ml BID IV FLUSH 12/05/17 09:00 12/06/17 08:37 Amiodarone HCl 450 mg/Sodium Chloride 250 ml @ 33 mls/hr [id number] IV 12/05/17 04:30 12/06/17 05:07 Heparin Sodium/ Dextrose 250 ml @ 7.72 mls/hr TITRATE PRN IV 12/05/17 07:00 12/05/17 15:39 Ceftriaxone Sodium 2000 mg/ Sodium Chloride 100 ml @ 200 mls/hr Q24H IV 12/06/17 00:00 12/05/17 23:27 Vasopressin 40 units/Dextrose 100 ml @ 6 mls/hr [id number] IV 12/05/17 11:00 12/06/17 00:05 Norepinephrine Bitartrate 250 ml @ 7.5 mls/hr TITRATE PRN IV 12/05/17 12:00 12/06/17 03:10 (Pepcid) 10 mg Q12HR PO 12/06/17 09:00 12/06/17 08:32 Sodium Bicarbonate 150 meq/Dextrose 1,150 ml @ 75 mls/hr [id number] IV 12/06/17 09:00 12/06/17 10:01 Lines Line no evidenc of infection Past Medical History Hypertension Previous CVA/TIA Tobacco abuse Past Surgical History Cataract surgery Breast augmentation Allergies: Coded Allergies: doxycycline (Unverified Allergy, Severe, 12/04/17) ALTERED MENTAL STATUS minocycline (Unverified Allergy, Severe, 12/04/17) ALTERED MENTAL STATUS tigecycline (Unverified Allergy, Severe, 12/04/17) ALTERED MENTAL STATUS Objective . Vital Signs Date Time Temp Pulse Resp B/P (MAP) Pulse Ox O2 Delivery O2 Flow Rate FiO2 12/06/17 12:00 40 12/06/17 11:29 100 40 12/06/17 08:07 100 40 12/06/17 08:00 40 12/06/17 06:00 66 21 116/57 (76) 100 12/06/17 06:00 66 12/06/17 05:07 64 110/45 12/06/17 05:00 64 23 108/59 (75) 100 111/47 (68) 12/06/17 04:00 97.5 65 22 123/69 (87) 100 141/57 (85) 12/06/17 04:00 40 12/06/17 04:00 65 141/57 12/06/17 04:00 65 12/06/17 03:43 100 40 12/06/17 03:10 65 116/45 12/06/17 03:00 65 24 112/57 (75) 100 121/47 (71) 12/06/17 02:00 60 12/06/17 02:00 60 23 125/62 (83) 100 130/53 (78) 12/06/17 01:00 60 20 116/62 (80) 100 122/54 (76) 12/06/17 00:05 62 105/61 12/06/17 00:00 40 12/06/17 00:00 62 12/06/17 00:00 97.7 62 23 105/61 (76) 100 12/05/17 23:00 65 24 92/50 (64) 100 12/05/17 22:30 100 40 12/05/17 22:30 69 113/56 12/05/17 22:15 75 116/58 12/05/17 22:00 74 21 117/62 (80) 100 12/05/17 22:00 74 12/05/17 22:00 74 117/62 12/05/17 21:00 65 21 119/59 (79) 100 12/05/17 20:23 100 40 12/05/17 20:00 40 12/05/17 20:00 64 12/05/17 20:00 97.9 64 24 113/57 (75) 100 12/05/17 19:00 97.9 63 24 107/59 (75) 100 12/05/17 19:00 63 107/59 12/05/17 18:17 67 106/58 12/05/17 18:00 71 12/05/17 18:00 98.4 71 23 109/59 (76) 100 12/05/17 17:00 97.8 71 22 106/57 (73) 100 12/05/17 16:00 40 12/05/17 16:00 74 12/05/17 16:00 98.6 74 18 118/63 (81) 100 12/05/17 15:52 100 40 12/05/17 15:00 98.1 74 20 104/56 (72) 100 . Laboratory Tests Test 12/05/17 03:30 12/06/17 05:15 White Blood Count 10.4 TH/MM3 12.7 TH/MM3 Red Blood Count 4.02 MIL/MM3 3.84 MIL/MM3 Hemoglobin 11.2 GM/DL 10.5 GM/DL Hematocrit 33.2 % 31.8 % Mean Corpuscular Volume 82.5 FL 82.7 FL Mean Corpuscular Hemoglobin 27.8 PG 27.2 PG Mean Corpuscular Hemoglobin Concent 33.7 % 33.0 % Red Cell Distribution Width 12.1 % 12.2 % Platelet Count 112 TH/MM3 116 TH/MM3 Mean Platelet Volume 10.6 FL 10.7 FL Neutrophils (%) (Auto) 69.1 % 79.8 % Lymphocytes (%) (Auto) 20.3 % 13.2 % Monocytes (%) (Auto) 10.2 % 6.6 % Eosinophils (%) (Auto) 0.0 % 0.0 % Basophils (%) (Auto) 0.4 % 0.4 % Neutrophils # (Auto) 7.2 TH/MM3 10.2 TH/MM3 Lymphocytes # (Auto) 2.1 TH/MM3 1.7 TH/MM3 Monocytes # (Auto) 1.1 TH/MM3 0.8 TH/MM3 Eosinophils # (Auto) 0.0 TH/MM3 0.0 TH/MM3 Basophils # (Auto) 0.0 TH/MM3 0.0 TH/MM3 CBC Comment DIFF FINAL DIFF FINAL Differential Comment Laboratory Tests Test 12/04/17 14:30 12/04/17 18:54 12/05/17 00:43 12/05/17 03:30 Lactic Acid Level 2.4 mmol/L Troponin I 10.30 NG/ML 9.65 NG/ML 12.80 NG/ML Vitamin B12 Level 1095 PG/ML Folate 14.0 NG/ML Blood Urea Nitrogen 28 MG/DL Creatinine 0.82 MG/DL Random Glucose 126 MG/DL Total Protein 5.7 GM/DL Albumin 2.9 GM/DL Calcium Level 8.0 MG/DL Alkaline Phosphatase 60 U/L Aspartate Amino Transf (AST/SGOT) 120 U/L Alanine Aminotransferase (ALT/SGPT) 76 U/L Total Bilirubin 0.9 MG/DL Sodium Level 143 MEQ/L Potassium Level 3.2 MEQ/L Chloride Level 108 MEQ/L Carbon Dioxide Level 22.9 MEQ/L Anion Gap 12 MEQ/L Estimat Glomerular Filtration Rate 68 ML/MIN Test 12/05/17 13:30 12/06/17 05:15 Phosphorus Level 3.8 MG/DL 5.8 MG/DL Blood Urea Nitrogen 48 MG/DL Creatinine 2.02 MG/DL Random Glucose 153 MG/DL Total Protein 5.4 GM/DL Albumin 2.8 GM/DL Calcium Level 7.0 MG/DL Magnesium Level 2.5 MG/DL Alkaline Phosphatase 53 U/L Aspartate Amino Transf (AST/SGOT) 527 U/L Alanine Aminotransferase (ALT/SGPT) 419 U/L Total Bilirubin 0.8 MG/DL Sodium Level 144 MEQ/L Potassium Level 4.4 MEQ/L Chloride Level 115 MEQ/L Carbon Dioxide Level 15.0 MEQ/L Anion Gap 14 MEQ/L Estimat Glomerular Filtration Rate 24 ML/MIN Protein Corrected Calcium 7.9 MG/DL Microbiology Date/Time Source Procedure Growth Status 12/04/17 11:38 Blood Peripheral Aerobic Blood Culture - Preliminary NO GROWTH IN 2 DAYS Resulted 12/04/17 11:38 Blood Peripheral Anaerobic Blood Culture - Preliminary NO GROWTH IN 2 DAYS Resulted 12/04/17 11:30 Blood Peripheral Aerobic Blood Culture - Preliminary NO GROWTH IN 2 DAYS Resulted 12/04/17 11:30 Blood Peripheral Anaerobic Blood Culture - Preliminary NO GROWTH IN 2 DAYS Resulted 12/04/17 14:50 Cerebral Spinal Fluid Lumbar Puncture Fungal Smear Pending Received 12/04/17 14:50 Cerebral Spinal Fluid Lumbar Puncture Fungal Culture Pending Received 12/04/17 14:50 Cerebral Spinal Fluid Lumbar Puncture Acid Fast Stain Pending Received 12/04/17 14:50 Cerebral Spinal Fluid Lumbar Puncture Mycobacterial Culture Pending Received 12/04/17 14:50 Cerebral Spinal Fluid Lumbar Puncture Gram Stain - Final Resulted 12/04/17 14:50 Cerebral Spinal Fluid Lumbar Puncture CSF Culture - Preliminary NO GROWTH IN 48 HOURS. Resulted 12/04/17 18:00 Sputum Endotracheal Gram Stain - Final Complete 12/04/17 18:00 Sputum Endotracheal Sputum Culture - Final HEAVY GROWTH NORMAL RESPIRATORY ANGELIKA Complete 12/04/17 11:40 Nasal Washing Influenza Types A,B Antigen (HARIKA) - Final NEGATIVE FOR FLU A AND B ANTIGEN.... Complete 12/06/17 06:30 Urine Catheterized Urine Urine Culture Pending Received Imaging Last Impressions Chest CT 12/04/17 1154 Signed Impressions: Service Date/Time: Monday, December 04, 2017 12:43 - CONCLUSION: Probable mild congestive failure with trace pleural effusions. No evidence for mass. Jean-Paul Hoffmann MD FACR Head CT 12/04/17 1126 Signed Impressions: Service Date/Time: Monday, December 04, 2017 12:37 - CONCLUSION: Stable brain appearance. No acute intracranial findings Anam Rojas MD Chest X-Ray 12/04/17 1126 Signed Impressions: Service Date/Time: Monday, December 04, 2017 11:27 - CONCLUSION: 1. Large central right hilar mass with volume loss. Contrasted CT chest recommended. Gideon Lin MD Neck Magnetic Resonance Angiography 12/04/17 0000 Signed Impressions: Service Date/Time: Monday, December 04, 2017 20:36 - CONCLUSION: 1. Mild plaque at the right carotid bulb/proximal internal carotid artery without significant stenosis. 2. Significant opacification of the aortic arch and origins of the great vessels is not present. These areas cannot be evaluated. Anam Donis MD Head Magnetic Resonance Angiography 12/04/17 0000 Signed Impressions: Service Date/Time: Monday, December 04, 2017 20:36 - CONCLUSION: No acute disease. Anam Donis MD Brain MRI 12/04/17 0000 Signed Impressions: Service Date/Time: Monday, December 04, 2017 20:36 - CONCLUSION: 1. Small punctate areas of signal abnormality in the posterior left temporal lobe which may represent small focal areas of acute infarction. 2. Several areas of signal abnormality in the basal ganglia and left posterior temporal lobes likely from prior hemorrhage. 3. Demyelination within the cerebral and pontine white matter likely from small vessel ischemic change. Anam Donis MD Physical Exam GENERAL: Sedated on the vent SKIN: No rashes,lesions. Cool and dry. HEAD: Atraumatic. Normocephalic. No temporal or scalp tenderness. EYES: Pupils equal round and reactive. No scleral icterus. No injection or drainage. ENT: Intubated. NECK: Trachea midline. Supple, nontender. CARDIOVASCULAR: Heart sounds audible. No murmur appreciated. RESPIRATORY: Clear to auscultation. Breath sounds equal bilaterally. GASTROINTESTINAL: Abdomen soft, non-tender, nondistended. MUSCULOSKELETAL: Extremities without clubbing, cyanosis, or edema. NEUROLOGICAL: Sedated on vent. Psych could not be assessed IV line sites with no evidence of infection. Assessment & Plan Remarks Sepsis present on admission No evidence on PUBLIC HE[employer] REPRESENTATIVE infection on LP Acute metabolic encephalopathy: Sepsis, ? new stroke. ?SZ Possible aspiration Prior history of TIA Prior history of smoking. Global hypokinesis with EF of 20-25% likely sepsis induced. Acute renal failure Recommendations: Continue ceftriaxone Stop vancomycin IV Stop acyclovir Follow C/S Neurology evaluating patient Monitor temps Monitor clinical progress UA and urine for eos Shae Johnson MD Dec 06, 2017 14:14
[2017-12-06] MEDS ORDERED: DIGOXIN 0.5 MG/2 ML VIAL IV PUSH ONE (15:15)
--- NOTE | 2017-12-06 17:26 | HHI.PR ---
Review/Management Daily Summary 12/06 she was sedated dthis am reportedly when off sedation she followed commands and moved all 4 limbs on command eeg nonepileptiform yesterday neuro jorge likely all ischemic left mca stroke plan repeat mri in a couple of days Subjective Subjective Comments seen in early am Active Medications Current Medications Medications (Trade) Dose Ordered Sig/April Route Start Time Stop Time Status Last Admin (Duoneb Neb) 1 ampule Q4HR NEB INH 12/04/17 16:00 12/06/17 11:34 (Duoneb Neb) 1 ampule Q2HR NEB PRN INH 12/04/17 14:00 Miscellaneous Information 1 Q361D XX 12/04/17 14:00 (Chlorhexidine 2% Cloth) 3 pack Taper DAILY@04 TOP 12/05/17 04:00 12/01/18 03:59 12/06/17 04:00 (Chlorhexidine 2% Cloth) 3 pack UNSCH PRN TOP 12/04/17 14:00 (Mera-Colace) 1 tab BID PO 12/04/17 21:00 12/05/17 08:38 (Milk Of Magnesia Liq) 30 ml Q12H PRN PO 12/04/17 14:00 (Senokot) 17.2 mg Q12H PRN PO 12/04/17 14:00 (Dulcolax Supp) 10 mg DAILY PRN RECTAL 12/04/17 14:00 (Lactulose Liq) 30 ml DAILY PRN PO 12/04/17 14:00 (D50w (Vial) Inj) 50 ml UNSCH PRN IV PUSH 12/04/17 14:00 (Glucagon Inj) 1 mg UNSCH PRN OTHER 12/04/17 14:00 (NovoLIN R SUPPLEMENTAL SCALE) 1 Q4H SQ 12/04/17 14:00 12/06/17 10:00 (Lopressor) 25 mg Q12HR PO 12/04/17 21:00 12/04/17 19:49 Thiamine HCl 100 mg/Sodium Chloride 101 ml @ 101 mls/hr DAILY@1800 IV 12/04/17 18:00 12/05/17 17:21 (Peridex 0.12% Liq) 15 ml BID@08,20 MT 12/04/17 20:00 12/06/17 08:30 Propofol 100 ml @ 2.04 mls/hr TITRATE PRN IV 12/04/17 17:30 12/06/17 05:04 (NS Flush) 2 ml UNSCH PRN IVF 12/05/17 04:15 12/06/17 08:38 (NS Flush) 2 ml BID IV FLUSH 12/05/17 09:00 12/06/17 08:37 Amiodarone HCl 450 mg/Sodium Chloride 250 ml @ 33 mls/hr Q7H35M IV 12/05/17 04:30 12/06/17 05:07 Heparin Sodium/ Dextrose 250 ml @ 7.72 mls/hr TITRATE PRN IV 12/05/17 07:00 12/05/17 15:39 Ceftriaxone Sodium 2000 mg/ Sodium Chloride 100 ml @ 200 mls/hr Q24H IV 12/06/17 00:00 12/05/17 23:27 Vasopressin 40 units/Dextrose 100 ml @ 6 mls/hr [id number] IV 12/05/17 11:00 12/06/17 00:05 Norepinephrine Bitartrate 250 ml @ 7.5 mls/hr TITRATE PRN IV 12/05/17 12:00 12/06/17 03:10 (Pepcid) 10 mg Q12HR PO 12/06/17 09:00 12/06/17 08:32 Sodium Bicarbonate 150 meq/Dextrose 1,150 ml @ 75 mls/hr [id number] IV 12/06/17 09:00 12/06/17 10:01 Allergies Allergies Coded Allergies doxycycline (Unverified Allergy, Severe, 12/04/17) minocycline (Unverified Allergy, Severe, 12/04/17) tigecycline (Unverified Allergy, Severe, 12/04/17) Exam I&O / VS Vital Signs Date Time Temp Pulse Resp B/P (MAP) Pulse Ox O2 Delivery O2 Flow Rate FiO2 12/06/17 17:00 100.0 138 26 134/62 (86) 99 99/71 (80) 12/06/17 16:00 133 12/06/17 16:00 40 12/06/17 16:00 99.9 133 29 152/68 (96) 98 128/71 (90) 12/06/17 15:28 99 40 12/06/17 15:00 100.0 145 28 135/66 (89) 98 114/71 (85) 12/06/17 14:00 93 12/06/17 14:00 100.0 93 52 131/59 (83) 98 122/52 (75) 12/06/17 13:00 99.1 99 32 135/63 (87) 99 127/50 (75) 12/06/17 12:00 97.9 87 27 120/56 (77) 100 122/48 (72) 12/06/17 12:00 87 12/06/17 12:00 40 12/06/17 11:29 100 40 12/06/17 11:00 96.4 92 28 136/63 (87) 100 143/56 (85) 12/06/17 10:00 82 12/06/17 10:00 95.4 82 24 119/58 (78) 100 116/58 (77) 12/06/17 09:00 94.0 78 24 145/67 (93) 92 140/68 (92) 12/06/17 08:07 100 40 12/06/17 08:00 94.0 69 24 147/77 (100) 100 151/69 (96) 12/06/17 08:00 69 12/06/17 08:00 40 12/06/17 07:00 94.0 66 22 139/68 (91) 100 139/65 (89) 12/06/17 06:00 66 21 116/57 (76) 100 12/06/17 06:00 66 12/06/17 05:07 64 110/45 12/06/17 05:00 64 23 108/59 (75) 100 111/47 (68) 12/06/17 04:00 97.5 65 22 123/69 (87) 100 141/57 (85) 12/06/17 04:00 40 12/06/17 04:00 65 141/57 12/06/17 04:00 65 12/06/17 03:43 100 40 12/06/17 03:10 65 116/45 12/06/17 03:00 65 24 112/57 (75) 100 121/47 (71) 12/06/17 02:00 60 12/06/17 02:00 60 23 125/62 (83) 100 130/53 (78) 12/06/17 01:00 60 20 116/62 (80) 100 122/54 (76) 12/06/17 00:05 62 105/61 12/06/17 00:00 40 12/06/17 00:00 62 12/06/17 00:00 97.7 62 23 105/61 (76) 100 12/05/17 23:00 65 24 92/50 (64) 100 12/05/17 22:30 100 40 12/05/17 22:30 69 113/56 12/05/17 22:15 75 116/58 12/05/17 22:00 74 21 117/62 (80) 100 12/05/17 22:00 74 12/05/17 22:00 74 117/62 12/05/17 21:00 65 21 119/59 (79) 100 12/05/17 20:23 100 40 12/05/17 20:00 40 12/05/17 20:00 64 12/05/17 20:00 97.9 64 24 113/57 (75) 100 12/05/17 19:00 97.9 63 24 107/59 (75) 100 12/05/17 19:00 63 107/59 12/05/17 18:17 67 106/58 12/05/17 18:00 71 12/05/17 18:00 98.4 71 23 109/59 (76) 100 Objective Radiology Results Last 48 hours Impressions Chest X-Ray 12/05/17 0000 Signed Impressions: Service Date/Time: Tuesday, December 05, 2017 13:23 - CONCLUSION: 1. Interval placement of a right subclavian central venous catheter with the tip projecting over the central venous system. No pneumothorax 2. Lungs remain hyperinflated with probable bibasilar atelectasis. 3. Compensated cardiomegaly. Mahendra Poe MD Micro and Labs Laboratory Tests Test 12/05/17 21:45 12/06/17 05:15 12/06/17 06:30 12/06/17 08:25 Activated Partial Thromboplast Time 37.2 46.0 White Blood Count 12.7 Red Blood Count 3.84 Hemoglobin 10.5 Hematocrit 31.8 Mean Corpuscular Volume 82.7 Mean Corpuscular Hemoglobin 27.2 Mean Corpuscular Hemoglobin Concent 33.0 Red Cell Distribution Width 12.2 Platelet Count 116 Mean Platelet Volume 10.7 Neutrophils (%) (Auto) 79.8 Lymphocytes (%) (Auto) 13.2 Monocytes (%) (Auto) 6.6 Eosinophils (%) (Auto) 0.0 Basophils (%) (Auto) 0.4 Neutrophils # (Auto) 10.2 Lymphocytes # (Auto) 1.7 Monocytes # (Auto) 0.8 Eosinophils # (Auto) 0.0 Basophils # (Auto) 0.0 CBC Comment DIFF FINAL Differential Comment Blood Urea Nitrogen 48 Creatinine 2.02 Random Glucose 153 Total Protein 5.4 Albumin 2.8 Calcium Level 7.0 Phosphorus Level 5.8 Magnesium Level 2.5 Alkaline Phosphatase 53 Aspartate Amino Transf (AST/SGOT) 527 Alanine Aminotransferase (ALT/SGPT) 419 Total Bilirubin 0.8 Sodium Level 144 Potassium Level 4.4 Chloride Level 115 Carbon Dioxide Level 15.0 Anion Gap 14 Estimat Glomerular Filtration Rate 24 Protein Corrected Calcium 7.9 Urine Color LIGHT-BROWN Urine Turbidity HAZY Urine pH 5.5 Urine Specific [place] 1.026 Urine Protein 300 Urine Glucose (UA) TRACE Urine Ketones TRACE Urine Occult Blood LARGE Urine Nitrite NEG Urine Bilirubin NEG Urine Urobilinogen LESS THAN 2.0 Urine Leukocyte Esterase MOD Urine RBC Urine WBC 70 Urine WBC Clumps OCC Urine Squamous Epithelial Cells 2 Urine Amorphous Sediment FEW Urine Bacteria MOD Urine Mucus FEW Microscopic Urinalysis Comment CATH-CULTURE IND Urine Random Creatinine 79.2 Urine Random Sodium 20 Blood Gas Puncture Site ART LINE Blood Gas Patient Temperature 98.6 Blood Gas HCO3 13 Blood Gas Base Excess -12.3 Blood Gas Oxygen Saturation 97 Arterial Blood pH 7.27 Arterial Blood Partial Pressure CO2 30 Arterial Blood Partial Pressure O2 190 Arterial Blood Oxygen Content 15.4 Arterial Blood Carboxyhemoglobin 0.3 Arterial Blood Methemoglobin 1.2 Blood Gas Hemoglobin 11.0 Oxygen Delivery Device VENTILATOR Blood Gas Ventilator Setting [id number]/VT500/R16/P5 Blood Gas Inspired Oxygen 40 Test 12/06/17 11:40 12/06/17 16:00 Activated Partial Thromboplast Time 38.8 Blood Gas Puncture Site ART LINE Blood Gas Patient Temperature 98.6 Blood Gas HCO3 18 Blood Gas Base Excess -6.5 Blood Gas Oxygen Saturation 97 Arterial Blood pH 7.36 Arterial Blood Partial Pressure CO2 32 Arterial Blood Partial Pressure O2 159 Arterial Blood Oxygen Content 14.4 Arterial Blood Carboxyhemoglobin 0.5 Arterial Blood Methemoglobin 1.3 Blood Gas Hemoglobin 10.3 Oxygen Delivery Device VENTILATOR Blood Gas Ventilator Setting PRVCAC/VT500/R16/P5 Blood Gas Inspired Oxygen 40 Date/Time Source Procedure Growth Status 12/04/17 11:38 Blood Peripheral Aerobic Blood Culture - Preliminary NO GROWTH IN 2 DAYS Resulted 12/04/17 11:38 Blood Peripheral Anaerobic Blood Culture - Preliminary NO GROWTH IN 2 DAYS Resulted 12/04/17 14:50 Cerebral Spinal Fluid Lumbar Puncture Fungal Smear Pending Received 12/04/17 14:50 Cerebral Spinal Fluid Lumbar Puncture Fungal Culture Pending Received 12/04/17 18:00 Sputum Endotracheal Gram Stain - Final Complete 12/04/17 18:00 Sputum Endotracheal Sputum Culture - Final HEAVY GROWTH NORMAL RESPIRATORY GURMEET Complete 12/06/17 06:30 Urine Catheterized Urine Urine Culture Pending Received Sae Hayward MD Dec 06, 2017 17:26
[2017-12-06] MEDS: THIAMINE INJ 100 MG in SODIUM CHLORIDE 0.9% INJ 100 ML IV SCH (18:17)
[2017-12-06] MEDS: HEPARIN-D5W 25,000 U/250 ML 250 ML IV PRN (18:40)
[2017-12-06] MEDS: cefTRIAXone INJ 2,000 MG in SODIUM CHLORIDE 0.9% INJ 100 ML IV SCH (23:58)
--- NOTE | 2017-12-06 23:58 | EKG ---
Date Performed: 12/06/2017 Time Performed: 14:23:22 PTAGE: 77 years EKG: Atrial fibrillation with rapid ventricular response. Poor R wave progression - probable nor mal variant Inferior/lateral T wave changes are nonspecific Abnormal ECG PREVIOUS TRACING : 12/06/2017 05.50 Compared to previous tracing, now in Afib with RVR, non-sp ecific ST/T wave changes DOCTOR: Alejandro Daniels Interpretating Date/Time 12/06/2017 23:58:26
[2017-12-07] VITALS (24 sets, daily range): BP systolic 97–160; BP diastolic 43–96; PULSE 72–113; RESP 21–28; TEMP 97.6–100.4; O2SAT 98–100
--- NOTE | 2017-12-07 00:14 | EKG ---
Date Performed: 12/06/2017 Time Performed: 05:50:52 PTAGE: 77 years EKG: Sinus rhythm . Poor R wave progression - probable normal variant Septal T wave changes are nonspecific Borderline ECG Compared to PREVIOUS TRACING , rate has decreased DOCTOR: Alejandro Daniels Interpretating Date/Time 12/07/2017 00:13:11
[2017-12-07] MEDS: RESP: ALBUTEROL 2.5 MG/IPRATROPIUM 0.5 MG NEB (SCH) INH ×6 (00:24→21:52)
[2017-12-07] MEDS: PROPOFOL 1000 MG/100 ML INJ 100 ML IV PRN ×2 (01:06→06:11)
[2017-12-07] MEDS: INSULIN NovoLIN REGULAR SUPPLEMENTAL SCALE SQ SCH ×6 (02:00→21:05)
[2017-12-07] MEDS: AMIODARONE INJ 450 MG in SODIUM CHLOR 0.9% (EXCEL) INJ 241 ML IV SCH ×2 (02:00→10:31)
[2017-12-07] MEDS: CHLORHEXIDINE GLUCONATE 2 % 1 PACK (2 CLOTHS) TOP SCH (04:00)
--- NOTE | 2017-12-07 04:41 | RADRPT ---
EXAM DATE/TIME: 12/07/2017 03:47 [facility] COMPARISON: CHEST SINGLE AP, December 05, 2017, 13:23. INDICATIONS : Shortness of breath, possible pulmonary disease. MEDICAL HISTORY : Hypertension. SURGICAL HISTORY : ORIF Humerus ENCOUNTER: Subsequent ACUITY: 4 - 6 days PAIN SCORE: Non-responsive. LOCATION: Bilateral chest FINDINGS: Right central line in superior vena cava. Cardiomegaly. Mild basilar airspace disease. NG enters stom ach. Endotracheal tube in good position. CONCLUSION: 1. Cardiomegaly with mild basilar airspace disease. Support apparatus unchanged. Shay Rausch MD on December 07, 2017 at 4:38 Board Certified Radiologist. This report was verified electronically.
[2017-12-07 05:18] LABS: AUTOMATED NEUTROPHIL # 6.5 TH/MM3 (1.8-7.7); BASOPHIL # 0.1 TH/MM3 (0-0.2); BASOPHIL % 0.6 % (0.0-2.0); EOSINOPHIL % 0.3 % (0.0-4.0); HEMATOCRIT 27.7 % (35.0-46.0); HEMOGLOBIN 9.4 GM/DL (11.6-15.3); LYMPH % 12.2 % (9.0-44.0); MEAN CELL VOLUME 81.9 FL (80.0-100.0); MEAN CORPUSCULAR HEMOGLOBIN 27.9 PG (27.0-34.0); MEAN PLATELET VOLUME 10.2 FL (7.0-11.0); MONO % 7.5 % (0.0-8.0); MONOCYTE # 0.6 TH/MM3 (0-0.9); NEUT % 79.4 % (16.0-70.0); PLATELET COUNT 96 TH/MM3 (150-450); RED BLOOD COUNT 3.38 MIL/MM3 (4.00-5.30); RED CELL DISTRIBUTION WIDTH 12.6 % (11.6-17.2); WHITE BLOOD COUNT 8.2 TH/MM3 (4.0-11.0)
--- NOTE | 2017-12-07 07:38 | PD.CARD.PN ---
Subjective Subjective Remarks on vent, sedated Objective Medications Current Medications Medications (Trade) Dose Ordered Sig/April Route Start Time Stop Time Status Last Admin (Duoneb Neb) 1 ampule Q4HR NEB INH 12/04/17 16:00 12/07/17 03:37 (Duoneb Neb) 1 ampule Q2HR NEB PRN INH 12/04/17 14:00 Miscellaneous Information 1 Q361D XX 12/04/17 14:00 (Chlorhexidine 2% Cloth) 3 pack Taper DAILY@04 TOP 12/05/17 04:00 12/01/18 03:59 12/07/17 04:00 (Chlorhexidine 2% Cloth) 3 pack UNSCH PRN TOP 12/04/17 14:00 (Mera-Colace) 1 tab BID PO 12/04/17 21:00 12/05/17 08:38 (Milk Of Magnesia Liq) 30 ml Q12H PRN PO 12/04/17 14:00 (Senokot) 17.2 mg Q12H PRN PO 12/04/17 14:00 (Dulcolax Supp) 10 mg DAILY PRN RECTAL 12/04/17 14:00 (Lactulose Liq) 30 ml DAILY PRN PO 12/04/17 14:00 (D50w (Vial) Inj) 50 ml UNSCH PRN IV PUSH 12/04/17 14:00 (Glucagon Inj) 1 mg UNSCH PRN OTHER 12/04/17 14:00 (NovoLIN R SUPPLEMENTAL SCALE) 1 Q4H SQ 12/04/17 14:00 12/07/17 05:36 (Lopressor) 25 mg Q12HR PO 12/04/17 21:00 12/04/17 19:49 Thiamine HCl 100 mg/Sodium Chloride 101 ml @ 101 mls/hr DAILY@1800 IV 12/04/17 18:00 12/06/17 18:17 (Peridex 0.12% Liq) 15 ml BID@08,20 MT 12/04/17 20:00 12/06/17 20:00 Propofol 100 ml @ 2.04 mls/hr TITRATE PRN IV 12/04/17 17:30 12/07/17 06:11 (NS Flush) 2 ml UNSCH PRN IVF 12/05/17 04:15 12/06/17 08:38 (NS Flush) 2 ml BID IV FLUSH 12/05/17 09:00 12/06/17 20:50 Amiodarone HCl 450 mg/Sodium Chloride 250 ml @ 33 mls/hr Q7H35M IV 12/05/17 04:30 12/06/17 19:56 Heparin Sodium/ Dextrose 250 ml @ 7.72 mls/hr TITRATE PRN IV 12/05/17 07:00 12/06/17 18:40 Ceftriaxone Sodium 2000 mg/ Sodium Chloride 100 ml @ 200 mls/hr Q24H IV 12/06/17 00:00 12/06/17 23:58 Vasopressin 40 units/Dextrose 100 ml @ 6 mls/hr [id number] IV 12/05/17 11:00 12/06/17 23:57 Norepinephrine Bitartrate 250 ml @ 7.5 mls/hr TITRATE PRN IV 12/05/17 12:00 12/06/17 03:10 (Pepcid) 10 mg Q12HR PO 12/06/17 09:00 12/06/17 20:49 Sodium Bicarbonate 150 meq/Dextrose 1,150 ml @ 75 mls/hr [id number] IV 12/06/17 09:00 12/06/17 23:57 Vital Signs / I&O Vital Signs Date Time Temp Pulse Resp B/P (MAP) Pulse Ox O2 Delivery O2 Flow Rate FiO2 12/07/17 06:00 75 12/07/17 06:00 75 21 149/68 (95) 100 154/71 (98) 12/07/17 05:00 73 21 125/59 (81) 100 97/56 (70) 12/07/17 04:00 40 12/07/17 04:00 77 12/07/17 04:00 97.6 77 23 141/94 (110) 98 12/07/17 03:37 100 40 12/07/17 03:00 77 21 135/60 (85) 100 104/91 (95) 12/07/17 02:00 84 26 138/63 (88) 100 145/65 (91) 12/07/17 02:00 84 12/07/17 01:00 90 25 152/70 (97) 99 156/65 (95) 12/07/17 00:24 99 40 12/07/17 00:00 90 12/07/17 00:00 40 12/07/17 00:00 100.4 90 25 150/70 (96) 99 154/66 (95) 12/06/17 23:57 90 154/64 12/06/17 23:00 91 25 155/74 (101) 99 160/71 (100) 12/06/17 22:00 90 12/06/17 22:00 90 26 152/71 (98) 99 158/68 (98) 12/06/17 21:00 89 27 153/74 (100) 99 152/63 (92) 12/06/17 20:24 99 40 12/06/17 20:00 144 12/06/17 20:00 40 12/06/17 20:00 99.0 144 27 137/70 (92) 99 136/67 (90) 12/06/17 19:56 129 133/61 12/06/17 19:20 141 118/53 12/06/17 19:10 134 119/54 12/06/17 19:00 100.2 144 27 145/66 (92) 99 146/66 (92) 12/06/17 18:00 100.2 97 29 153/73 (99) 99 115/100 (105) 12/06/17 18:00 97 12/06/17 17:00 100.0 138 26 134/62 (86) 99 99/71 (80) 12/06/17 16:00 133 12/06/17 16:00 40 12/06/17 16:00 99.9 133 29 152/68 (96) 98 128/71 (90) 12/06/17 15:28 99 40 12/06/17 15:00 100.0 145 28 135/66 (89) 98 114/71 (85) 12/06/17 14:00 93 12/06/17 14:00 100.0 93 52 131/59 (83) 98 122/52 (75) 12/06/17 13:00 99.1 99 32 135/63 (87) 99 127/50 (75) 12/06/17 12:00 97.9 87 27 120/56 (77) 100 122/48 (72) 12/06/17 12:00 87 12/06/17 12:00 40 12/06/17 11:29 100 40 12/06/17 11:00 96.4 92 28 136/63 (87) 100 143/56 (85) 12/06/17 10:00 82 12/06/17 10:00 95.4 82 24 119/58 (78) 100 116/58 (77) 12/06/17 09:00 94.0 78 24 145/67 (93) 92 140/68 (92) 12/06/17 08:07 100 40 12/06/17 08:00 94.0 69 24 147/77 (100) 100 151/69 (96) 12/06/17 08:00 69 12/06/17 08:00 40 I/O 12/06/17 12/06/17 12/06/17 12/07/17 12/07/17 12/07/17 07:00 15:00 23:00 07:00 15:00 23:00 Intake Total 2924.5 ml 100 ml 1101 ml 2706.4 ml Output Total 55 ml 200 ml 375 ml Balance 2869.5 ml 100 ml 901 ml 2331.4 ml Intake Oral 0 ml 0 ml IV Total 2735.5 ml 100 ml 701 ml 2137.4 ml Tube Feeding 69 ml 370 ml 449 ml Tube Irrigant 120 ml 120 ml Other 30 ml Output Urine Total 55 ml 200 ml 375 ml # Bowel Movements 1 1 1 Physical Exam on vent. Sedated Chest + rhonchi CV: AF RVR yest, in SR today Abd soft Ext: no edema, cool Echo results noted Requiring pressors Laboratory Laboratory Tests Test 12/06/17 08:25 12/06/17 11:40 12/06/17 16:00 12/06/17 21:00 Blood Gas Puncture Site ART LINE ART LINE Blood Gas Patient Temperature 98.6 98.6 Blood Gas HCO3 13 mmol/L 18 mmol/L Blood Gas Base Excess -12.3 mmol/L -6.5 mmol/L Blood Gas Oxygen Saturation 97 % 97 % Arterial Blood pH 7.27 7.36 Arterial Blood Partial Pressure CO2 30 mmHg 32 mmHg Arterial Blood Partial Pressure O2 190 mmHg 159 mmHg Arterial Blood Oxygen Content 15.4 Vol % 14.4 Vol % Arterial Blood Carboxyhemoglobin 0.3 % 0.5 % Arterial Blood Methemoglobin 1.2 % 1.3 % Blood Gas Hemoglobin 11.0 G/DL 10.3 G/DL Oxygen Delivery Device VENTILATOR VENTILATOR Blood Gas Ventilator Setting PRVCAC/VT500/R16/P5 PRVCAC/VT500/R16/P5 Blood Gas Inspired Oxygen 40 % 40 % Activated Partial Thromboplast Time 38.8 SEC Urine Eosinophils NONE SEEN /HPF Test 12/06/17 22:10 12/07/17 04:15 12/07/17 05:00 Activated Partial Thromboplast Time 42.5 SEC 45.4 SEC White Blood Count 8.2 TH/MM3 Red Blood Count 3.38 MIL/MM3 Hemoglobin 9.4 GM/DL Hematocrit 27.7 % Mean Corpuscular Volume 81.9 FL Mean Corpuscular Hemoglobin 27.9 PG Mean Corpuscular Hemoglobin Concent 34.0 % Red Cell Distribution Width 12.6 % Platelet Count 96 TH/MM3 Mean Platelet Volume 10.2 FL Neutrophils (%) (Auto) 79.4 % Lymphocytes (%) (Auto) 12.2 % Monocytes (%) (Auto) 7.5 % Eosinophils (%) (Auto) 0.3 % Basophils (%) (Auto) 0.6 % Neutrophils # (Auto) 6.5 TH/MM3 Lymphocytes # (Auto) 1.0 TH/MM3 Monocytes # (Auto) 0.6 TH/MM3 Eosinophils # (Auto) 0.0 TH/MM3 Basophils # (Auto) 0.1 TH/MM3 CBC Comment AUTO DIFF Imaging Last 24 hours Impressions Chest X-Ray 12/07/17 0600 Signed Impressions: Service Date/Time: Thursday, December 07, 2017 03:47 - CONCLUSION: 1. Cardiomegaly with mild basilar airspace disease. Support apparatus unchanged. Shay Rausch MD Assessment and Plan Problem List: (1) Paroxysmal atrial fibrillation with rapid ventricular response ICD Codes: I48.0 - Paroxysmal atrial fibrillation Status: Acute (2) Altered mental status ICD Codes: R41.82 - Altered mental status, unspecified Status: Acute (3) Severe sepsis ICD Codes: A41.9 - Sepsis, unspecified organism; R65.20 - Severe sepsis without septic shock Status: Acute (4) Non-ST elevation IN (NSTEMI) ICD Codes: I21.4 - Non-ST elevation (NSTEMI) myocardial infarction Status: Acute (5) Cardiomyopathy ICD Codes: I42.9 - Cardiomyopathy, unspecified Status: Chronic (6) CVA (cerebral infarction) ICD Codes: I63.9 - Cerebral infarction Status: Acute Assessment and Plan Remains critically ill. Senior Cost Accountant is managing. Problem Qualifiers (1) Altered mental status: Rich Meza MD Dec 07, 2017 07:38
[2017-12-07] MEDS: CHLORHEXIDINE 0.12% (ORAL KIT) 15 ML CUP MT SCH ×2 (09:00→20:00)
[2017-12-07] MEDS: SODIUM CHLORIDE FLUSH BID IV FLUSH SCH ×2 (09:00→21:00)
[2017-12-07] MEDS: DOCUSATE SODIUM 50 MG/SENNA 8.6 MG TAB PO SCH ×2 (09:00→19:44)
[2017-12-07] MEDS: METOPROLOL TARTRATE 25 MG TAB PO SCH ×2 (09:01→19:44)
[2017-12-07] MEDS: FAMOTIDINE 20 MG TAB PO SCH ×2 (09:01→19:44)
[2017-12-07] MEDS: ASPIRIN 81 MG CHEW TAB NG SCH (09:01)
--- NOTE | 2017-12-07 09:41 | HHI.IDPN ---
Subjective Subjective Remarks Ms. Rausch is a 77-year-old female who reportedly is very active at baseline. The nurse taking care of the patient reports to me the patient was expected to be at the gym and when she did not show up of friends into the home and was found down, disoriented, staring off to the left not answering any questions. Her past medical history significant for hypertension, previous TIA and tobacco abuse. Patient was reportedly seen normal at 7 PM the night before when she was attending a car show. When in the emergency room her temperature was 101 and it spiked 203.7. ER workup included a CT scan which is negative for acute findings. Lab workup showed WBC 15.9 with a leftward shift, elevated lactic acid at 3.4 and an elevated troponin and 8.7. Cardiology was consulted and patient was given aspirin and recommended that IV heparin be started. IV heparin was not started because of lumbar puncture. Upon review of the numbers for lumbar puncture appears unremarkable with the minimal elevation of total protein. Patient had a sepsis workup initiated and started on meningitis doses for vancomycin and Rocephin, ampicillin as well as acyclovir IV. All the lumbar puncture studies as well as blood cultures are pending at the present time. Patient was found to be a phasic with a leftward gaze and diminished movements of the right upper and lower extremities. Patient was intubated for airway protection. A 2D echo done showed 20-25% EF with global hypokinesis. No prior history of any seizure disorder per review of records. No reported history of drug abuse. Infectious disease is consulted for evaluation and management of possible meningitis. Notes reviewed Off pressors. On CPAP trial. Not much secretions. CXR negative. CSF and blood cultures negative. Cr increasing, WBC with high WBC concerning for AIN from Vanco IV which is now stopped. WBC normal. LP with minimal elevated total protein. MRI brain noted. CT chest, prob mild CHF and trace effusions Antibiotics Vancomycin Rocephin Acyclovir Current Medications Medications (Trade) Dose Ordered Sig/April Route Start Time Stop Time Status Last Admin (Duoneb Neb) 1 ampule Q4HR NEB INH 12/04/17 16:00 12/06/17 11:34 (Duoneb Neb) 1 ampule Q2HR NEB PRN INH 12/04/17 14:00 Miscellaneous Information 1 Q361D XX 12/04/17 14:00 (Chlorhexidine 2% Cloth) 3 pack Taper DAILY@04 TOP 12/05/17 04:00 12/01/18 03:59 12/06/17 04:00 (Chlorhexidine 2% Cloth) 3 pack UNSCH PRN TOP 12/04/17 14:00 (Mera-Colace) 1 tab BID PO 12/04/17 21:00 12/05/17 08:38 (Milk Of Magnesia Liq) 30 ml Q12H PRN PO 12/04/17 14:00 (Senokot) 17.2 mg Q12H PRN PO 12/04/17 14:00 (Dulcolax Supp) 10 mg DAILY PRN RECTAL 12/04/17 14:00 (Lactulose Liq) 30 ml DAILY PRN PO 12/04/17 14:00 Vancomycin HCl 1000 mg/Sodium Chloride 250 ml @ 250 mls/hr Q12H IV 12/04/17 15:00 12/06/17 03:20 (D50w (Vial) Inj) 50 ml UNSCH PRN IV PUSH 12/04/17 14:00 (Glucagon Inj) 1 mg UNSCH PRN OTHER 12/04/17 14:00 (NovoLIN R SUPPLEMENTAL SCALE) 1 Q4H SQ 12/04/17 14:00 12/06/17 10:00 (Lopressor) 25 mg Q12HR PO 12/04/17 21:00 12/04/17 19:49 Acyclovir Sodium 680 mg/Sodium Chloride 100 ml @ 100 mls/hr Q8H IV 12/04/17 18:00 12/06/17 11:44 Thiamine HCl 100 mg/Sodium Chloride 101 ml @ 101 mls/hr DAILY@1800 IV 12/04/17 18:00 12/05/17 17:21 (Peridex 0.12% Liq) 15 ml BID@08,20 MT 12/04/17 20:00 12/06/17 08:30 Propofol 100 ml @ 2.04 mls/hr TITRATE PRN IV 12/04/17 17:30 12/06/17 05:04 (NS Flush) 2 ml UNSCH PRN IVF 12/05/17 04:15 12/06/17 08:38 (NS Flush) 2 ml BID IV FLUSH 12/05/17 09:00 12/06/17 08:37 Amiodarone HCl 450 mg/Sodium Chloride 250 ml @ 33 mls/hr Q7H35M IV 12/05/17 04:30 12/06/17 05:07 Heparin Sodium/ Dextrose 250 ml @ 7.72 mls/hr TITRATE PRN IV 12/05/17 07:00 12/05/17 15:39 Ceftriaxone Sodium 2000 mg/ Sodium Chloride 100 ml @ 200 mls/hr Q24H IV 12/06/17 00:00 12/05/17 23:27 Vasopressin 40 units/Dextrose 100 ml @ 6 mls/hr [id number] IV 12/05/17 11:00 12/06/17 00:05 Norepinephrine Bitartrate 250 ml @ 7.5 mls/hr TITRATE PRN IV 12/05/17 12:00 12/06/17 03:10 (Pepcid) 10 mg Q12HR PO 12/06/17 09:00 12/06/17 08:32 Sodium Bicarbonate 150 meq/Dextrose 1,150 ml @ 75 mls/hr [id number] IV 12/06/17 09:00 12/06/17 10:01 Lines Line no evidenc of infection Past Medical History Hypertension Previous CVA/TIA Tobacco abuse Past Surgical History Cataract surgery Breast augmentation Allergies: Coded Allergies: doxycycline (Unverified Allergy, Severe, 12/04/17) ALTERED MENTAL STATUS minocycline (Unverified Allergy, Severe, 12/04/17) ALTERED MENTAL STATUS tigecycline (Unverified Allergy, Severe, 12/04/17) ALTERED MENTAL STATUS Objective . Vital Signs Date Time Temp Pulse Resp B/P (MAP) Pulse Ox O2 Delivery O2 Flow Rate FiO2 12/07/17 09:00 97.8 80 28 160/77 100 135/96 12/07/17 08:15 40 12/07/17 08:15 100 40 12/07/17 08:00 97.8 75 23 143/67 (92) 100 115/74 (88) 12/07/17 08:00 40 12/07/17 08:00 72 12/07/17 07:00 97.8 75 23 143/67 (92) 100 115/74 (88) 12/07/17 06:00 75 12/07/17 06:00 75 21 149/68 (95) 100 154/71 (98) 12/07/17 05:00 73 21 125/59 (81) 100 97/56 (70) 12/07/17 04:00 40 12/07/17 04:00 77 12/07/17 04:00 97.6 77 23 141/94 (110) 98 12/07/17 03:37 100 40 12/07/17 03:00 77 21 135/60 (85) 100 104/91 (95) 12/07/17 02:00 84 26 138/63 (88) 100 145/65 (91) 12/07/17 02:00 84 12/07/17 01:00 90 25 152/70 (97) 99 156/65 (95) 12/07/17 00:24 99 40 12/07/17 00:00 90 12/07/17 00:00 40 12/07/17 00:00 100.4 90 25 150/70 (96) 99 154/66 (95) 12/06/17 23:57 90 154/64 12/06/17 23:00 91 25 155/74 (101) 99 160/71 (100) 12/06/17 22:00 90 12/06/17 22:00 90 26 152/71 (98) 99 158/68 (98) 12/06/17 21:00 89 27 153/74 (100) 99 152/63 (92) 12/06/17 20:24 99 40 12/06/17 20:00 144 12/06/17 20:00 40 12/06/17 20:00 99.0 144 27 137/70 (92) 99 136/67 (90) 12/06/17 19:56 129 133/61 12/06/17 19:20 141 118/53 12/06/17 19:10 134 119/54 12/06/17 19:00 100.2 144 27 145/66 (92) 99 146/66 (92) 12/06/17 18:00 100.2 97 29 153/73 (99) 99 115/100 (105) 12/06/17 18:00 97 12/06/17 17:00 100.0 138 26 134/62 (86) 99 99/71 (80) 12/06/17 16:00 133 12/06/17 16:00 40 12/06/17 16:00 99.9 133 29 152/68 (96) 98 128/71 (90) 12/06/17 15:28 99 40 12/06/17 15:00 100.0 145 28 135/66 (89) 98 114/71 (85) 12/06/17 14:00 93 12/06/17 14:00 100.0 93 52 131/59 (83) 98 122/52 (75) 12/06/17 13:00 99.1 99 32 135/63 (87) 99 127/50 (75) 12/06/17 12:00 97.9 87 27 120/56 (77) 100 122/48 (72) 12/06/17 12:00 87 12/06/17 12:00 40 12/06/17 11:29 100 40 12/06/17 11:00 96.4 92 28 136/63 (87) 100 143/56 (85) 12/06/17 10:00 82 12/06/17 10:00 95.4 82 24 119/58 (78) 100 116/58 (77) . Laboratory Tests Test 12/06/17 05:15 12/07/17 05:00 White Blood Count 12.7 TH/MM3 8.2 TH/MM3 Red Blood Count 3.84 MIL/MM3 3.38 MIL/MM3 Hemoglobin 10.5 GM/DL 9.4 GM/DL Hematocrit 31.8 % 27.7 % Mean Corpuscular Volume 82.7 FL 81.9 FL Mean Corpuscular Hemoglobin 27.2 PG 27.9 PG Mean Corpuscular Hemoglobin Concent 33.0 % 34.0 % Red Cell Distribution Width 12.2 % 12.6 % Platelet Count 116 TH/MM3 96 TH/MM3 Mean Platelet Volume 10.7 FL 10.2 FL Neutrophils (%) (Auto) 79.8 % 79.4 % Lymphocytes (%) (Auto) 13.2 % 12.2 % Monocytes (%) (Auto) 6.6 % 7.5 % Eosinophils (%) (Auto) 0.0 % 0.3 % Basophils (%) (Auto) 0.4 % 0.6 % Neutrophils # (Auto) 10.2 TH/MM3 6.5 TH/MM3 Lymphocytes # (Auto) 1.7 TH/MM3 1.0 TH/MM3 Monocytes # (Auto) 0.8 TH/MM3 0.6 TH/MM3 Eosinophils # (Auto) 0.0 TH/MM3 0.0 TH/MM3 Basophils # (Auto) 0.0 TH/MM3 0.1 TH/MM3 CBC Comment DIFF FINAL AUTO DIFF Differential Comment AUTO DIFF CONFIRMED Platelet Estimate LOW Platelet Morphology Comment NORMAL Laboratory Tests Test 12/05/17 13:30 12/06/17 05:15 Phosphorus Level 3.8 MG/DL 5.8 MG/DL Blood Urea Nitrogen 48 MG/DL Creatinine 2.02 MG/DL Random Glucose 153 MG/DL Total Protein 5.4 GM/DL Albumin 2.8 GM/DL Calcium Level 7.0 MG/DL Magnesium Level 2.5 MG/DL Alkaline Phosphatase 53 U/L Aspartate Amino Transf (AST/SGOT) 527 U/L Alanine Aminotransferase (ALT/SGPT) 419 U/L Total Bilirubin 0.8 MG/DL Sodium Level 144 MEQ/L Potassium Level 4.4 MEQ/L Chloride Level 115 MEQ/L Carbon Dioxide Level 15.0 MEQ/L Anion Gap 14 MEQ/L Estimat Glomerular Filtration Rate 24 ML/MIN Protein Corrected Calcium 7.9 MG/DL Microbiology Date/Time Source Procedure Growth Status 12/04/17 11:38 Blood Peripheral Aerobic Blood Culture - Preliminary NO GROWTH IN 2 DAYS Resulted 12/04/17 11:38 Blood Peripheral Anaerobic Blood Culture - Preliminary NO GROWTH IN 2 DAYS Resulted 12/04/17 11:30 Blood Peripheral Aerobic Blood Culture - Preliminary NO GROWTH IN 2 DAYS Resulted 12/04/17 11:30 Blood Peripheral Anaerobic Blood Culture - Preliminary NO GROWTH IN 2 DAYS Resulted 12/04/17 14:50 Cerebral Spinal Fluid Lumbar Puncture Fungal Smear Pending Received 12/04/17 14:50 Cerebral Spinal Fluid Lumbar Puncture Fungal Culture Pending Received 12/04/17 14:50 Cerebral Spinal Fluid Lumbar Puncture Acid Fast Stain - Final NO ACID FAST BACILLI SEEN Resulted 12/04/17 14:50 Cerebral Spinal Fluid Lumbar Puncture Mycobacterial Culture Pending Resulted 12/04/17 14:50 Cerebral Spinal Fluid Lumbar Puncture Gram Stain - Final Complete 12/04/17 14:50 Cerebral Spinal Fluid Lumbar Puncture CSF Culture - Final NO GROWTH IN 72 HOURS Complete 12/04/17 18:00 Sputum Endotracheal Gram Stain - Final Complete 12/04/17 18:00 Sputum Endotracheal Sputum Culture - Final HEAVY GROWTH NORMAL RESPIRATORY GURMEET Complete 12/04/17 11:40 Nasal Washing Influenza Types A,B Antigen (HARIKA) - Final NEGATIVE FOR FLU A AND B ANTIGEN.... Complete 12/06/17 06:30 Urine Catheterized Urine Urine Culture Pending Received Imaging Last Impressions Chest CT 12/04/17 1154 Signed Impressions: Service Date/Time: Monday, December 04, 2017 12:43 - CONCLUSION: Probable mild congestive failure with trace pleural effusions. No evidence for mass. Jean-Paul Hoffmann MD FACR Head CT 12/04/17 1126 Signed Impressions: Service Date/Time: Monday, December 04, 2017 12:37 - CONCLUSION: Stable brain appearance. No acute intracranial findings Anam Rojas MD Chest X-Ray 12/04/17 1126 Signed Impressions: Service Date/Time: Monday, December 04, 2017 11:27 - CONCLUSION: 1. Large central right hilar mass with volume loss. Contrasted CT chest recommended. Gideon Lin MD Neck Magnetic Resonance Angiography 12/04/17 0000 Signed Impressions: Service Date/Time: Monday, December 04, 2017 20:36 - CONCLUSION: 1. Mild plaque at the right carotid bulb/proximal internal carotid artery without significant stenosis. 2. Significant opacification of the aortic arch and origins of the great vessels is not present. These areas cannot be evaluated. Anam Donis MD Head Magnetic Resonance Angiography 12/04/17 0000 Signed Impressions: Service Date/Time: Monday, December 04, 2017 20:36 - CONCLUSION: No acute disease. Anam Donis MD Brain MRI 12/04/17 0000 Signed Impressions: Service Date/Time: Monday, December 04, 2017 20:36 - CONCLUSION: 1. Small punctate areas of signal abnormality in the posterior left temporal lobe which may represent small focal areas of acute infarction. 2. Several areas of signal abnormality in the basal ganglia and left posterior temporal lobes likely from prior hemorrhage. 3. Demyelination within the cerebral and pontine white matter likely from small vessel ischemic change. Anam Donis MD Physical Exam GENERAL: Sedated on the vent SKIN: No rashes,lesions. Cool and dry. HEAD: Atraumatic. Normocephalic. No temporal or scalp tenderness. EYES: Pupils equal round and reactive. No scleral icterus. No injection or drainage. ENT: Intubated. NECK: Trachea midline. Supple, nontender. CARDIOVASCULAR: Heart sounds audible. No murmur appreciated. RESPIRATORY: Clear to auscultation. Breath sounds equal bilaterally. GASTROINTESTINAL: Abdomen soft, non-tender, nondistended. MUSCULOSKELETAL: Extremities without clubbing, cyanosis, or edema. NEUROLOGICAL: Sedated on vent. Psych could not be assessed IV line sites with no evidence of infection. Assessment & Plan Remarks Sepsis present on admission No evidence on PANTRY STEWARD/STEWARDESS infection on LP Acute metabolic encephalopathy: Sepsis, ? new stroke. ?SZ Possible aspiration Prior history of TIA Prior history of smoking. Global hypokinesis with EF of 20-25% likely sepsis induced. Acute renal failure Recommendations: Continue ceftriaxone IV. Follow C/S Neurology concerned this is stroke and possibly seizures. Monitor temps Monitor clinical progress Augusta Amaro MD Dec 07, 2017 09:41
[2017-12-07] MEDS ORDERED: SODIUM CHLORID 0.9% 500 ML INJ 500 ML IV ONE (13:45)
--- NOTE | 2017-12-07 14:01 | HHI.CCPN ---
Subjective Remarks/Hospital Course 77-year-old female who is apparently very active at baseline, with past medical history significant for hypertension and previous TIA, tobacco abuse. She was seen last normal yesterday night at 7 PM. Her friends checked on her today morning and was found down, disoriented, staring off to the left, not answering questions. I am not able to get much further history from her. She has a fever of 101 in the ER, initially and then spiked to 103.7. ER workup included a CT scan of head which was negative for acute findings. Lab work showed a white count of 15.9 with left shift, lactic acid was 3.4, troponin was elevated at 8.7. Cardiology Dr. Meza was contacted aspirin was given patient was recommended to be started on IV heparin but was held for LP. Lumbar puncture was unremarkable nevertheless patient was started on meningitic doses of vancomycin and Rocephin. I have added ampicillin 2 g IV every 4 hours, and acyclovir 680 mg IV every 8 hours. I evaluated the patient in the ICU. Patient is severely altered tachypneic in moderate distress. Patient is aphasic with left gaze preference diminished movements of the right upper and lower extremity. A bedside echo shows reduced EF approximately 20-25%, global hypokinesis. Patient has no history of cardiomyopathy to my knowledge. At this time his stroke cannot be ruled out. Stat MRI MRA had been ordered. Due to altered mentation tachypnea and lack of airway protection patient was intubated and placed on mechanical ventilation SUBJECTIVE: 12/05: Remains intubated sedated. MRI brain showing small punctate areas of signal abnormality in the posterior left temporal lobe-possible small focal areas of acute infarction. Also several areas of signal abnormality in the basal ganglia and left posterior temporal lobes likely from prior hemorrhage. Demyelination within the cerebral and pontine white matter likely from small vessel ischemic change. Neurology consult. Stat EEG is pending. Fever is down trending afebrile now, developed atrial fibrillation with RVR started on amiodarone infusion. I have resumed heparin infusion. 12/06: Afebrile. Last evening the patient had decreased mat requiring additional pressor support vasopressin added to medication regimen and diminished urinary output. Patient was noted to have significant elevation in creatinine this a.m. Patient remains on vasopressin and norepinephrine vasopressor support. Patient continues on amiodarone infusion, plan to transition to p.o.. Sedation vacation initiated yesterday for EEG, per report patient following commands. Sedation vacation in progress at this time. Noticed slight elevation in WBC count, repeat urine culture pending. 12/07: Remains intubated sedated. Currently on IV heparin infusion, amiodarone infusion and vasopressin gtt to maintain MAP >65. Had developed acute kidney injury yesterday creatinine had bumped to 2. Urine output 550 mL in the last 24 hours. CMP today is pending. On sedation hold patient opens eyes weakly moves extremities do not follow commands. Remains severely encephalopathy Objective Vital Signs Date Time Temp Pulse Resp B/P (MAP) Pulse Ox O2 Delivery O2 Flow Rate FiO2 12/07/17 12:00 98.7 75 25 145/68 (93) 100 113/80 (91) 12/07/17 12:00 40 12/05/17 03:59 Ventilator 12/04/17 21:42 15.00 Intake and Output 12/07/17 12/07/17 12/08/17 08:00 16:00 00:00 Intake Total 1556.4 ml 241 ml Output Total 375 ml Balance 1181.4 ml 241 ml Result Diagram: 12/07/17 0500 12/06/17 0515 Other Results Microbiology Date/Time Source Procedure Growth Status 12/04/17 14:50 Cerebral Spinal Fluid Lumbar Puncture Gram Stain - Final Complete 12/04/17 14:50 Cerebral Spinal Fluid Lumbar Puncture CSF Culture - Final NO GROWTH IN 72 HOURS Complete 12/04/17 18:00 Sputum Endotracheal Gram Stain - Final Complete 12/04/17 18:00 Sputum Endotracheal Sputum Culture - Final HEAVY GROWTH NORMAL RESPIRATORY GURMEET Complete Laboratory Tests Test 12/06/17 16:00 Blood Gas Puncture Site ART LINE Blood Gas Patient Temperature 98.6 Blood Gas HCO3 18 mmol/L (22-26) Blood Gas Base Excess -6.5 mmol/L (-2-2) Blood Gas Oxygen Saturation 97 % (90-100) Arterial Blood pH 7.36 (7.380-7.420) Arterial Blood Partial Pressure CO2 32 mmHg (38-42) Arterial Blood Partial Pressure O2 159 mmHg (61-120) Arterial Blood Oxygen Content 14.4 Vol % (12.0-20.0) Arterial Blood Carboxyhemoglobin 0.5 % (0-4) Arterial Blood Methemoglobin 1.3 % (0-2) Blood Gas Hemoglobin 10.3 G/DL (12.0-16.0) Oxygen Delivery Device VENTILATOR Blood Gas Ventilator Setting PRVCAC/VT500/R16/P5 Blood Gas Inspired Oxygen 40 % Imaging Last Impressions Chest X-Ray 12/05/17 0000 Signed Impressions: Service Date/Time: Tuesday, December 05, 2017 13:23 - CONCLUSION: 1. Interval placement of a right subclavian central venous catheter with the tip projecting over the central venous system. No pneumothorax 2. Lungs remain hyperinflated with probable bibasilar atelectasis. 3. Compensated cardiomegaly. Mahendra Poe MD Chest CT 12/04/17 1154 Signed Impressions: Service Date/Time: Monday, December 04, 2017 12:43 - CONCLUSION: Probable mild congestive failure with trace pleural effusions. No evidence for mass. Jean-Paul Hoffmann MD FACR Head CT 12/04/17 1126 Signed Impressions: Service Date/Time: Monday, December 04, 2017 12:37 - CONCLUSION: Stable brain appearance. No acute intracranial findings Anam Rojas MD Neck Magnetic Resonance Angiography 12/04/17 0000 Signed Impressions: Service Date/Time: Monday, December 04, 2017 20:36 - CONCLUSION: 1. Mild plaque at the right carotid bulb/proximal internal carotid artery without significant stenosis. 2. Significant opacification of the aortic arch and origins of the great vessels is not present. These areas cannot be evaluated. Anam Donis MD Head Magnetic Resonance Angiography 12/04/17 0000 Signed Impressions: Service Date/Time: Monday, December 04, 2017 20:36 - CONCLUSION: No acute disease. Anam Donis MD Brain MRI 12/04/17 0000 Signed Impressions: Service Date/Time: Monday, December 04, 2017 20:36 - CONCLUSION: 1. Small punctate areas of signal abnormality in the posterior left temporal lobe which may represent small focal areas of acute infarction. 2. Several areas of signal abnormality in the basal ganglia and left posterior temporal lobes likely from prior hemorrhage. 3. Demyelination within the cerebral and pontine white matter likely from small vessel ischemic change. Anam Donis MD Objective Remarks GENERAL: Elderly female intubated sedated all sedation on hold SKIN: Warm and dry HEAD: Atraumatic. Normocephalic. EYES: Pupils equal and round, 2 mm brisk and reactive. No scleral icterus. ENT: No nasal bleeding or discharge. Orotracheally intubated NECK: Trachea midline. No JVD. CARDIOVASCULAR: Regular rate and rhythm, telemetry sinus rhythm. S1 S2, no murmurs. On vasopressin gtt RESPIRATORY: On ACV mode. Bilateral coarse breath sounds GASTROINTESTINAL: Abdomen soft, non-tender, nondistended. MUSCULOSKELETAL: No obvious deformities. No clubbing. No cyanosis. Bilateral upper extremity 1+ peripheral edema NEUROLOGICAL: Remains sedated. Spontaneously moving extremities, withdraws to pain. Pupils equal reactive. Opens eyes and tracks, do not follow commands Urinary Catheter: Yes Assessment to: Continue A/P Problem List: (1) Acute metabolic encephalopathy ICD Code: G93.41 - Metabolic encephalopathy Status: Acute (2) Paroxysmal atrial fibrillation with rapid ventricular response ICD Code: I48.0 - Paroxysmal atrial fibrillation Status: Acute (3) Lactic acidemia ICD Code: E87.2 - Acidosis Status: Acute (4) Cardiomyopathy ICD Code: I42.9 - Cardiomyopathy, unspecified Status: Chronic (5) Non-ST elevation PR (NSTEMI) ICD Code: I21.4 - Non-ST elevation (NSTEMI) myocardial infarction Status: Acute (6) Severe sepsis ICD Code: A41.9 - Sepsis, unspecified organism; R65.20 - Severe sepsis without septic shock Status: Acute (7) Altered mental status ICD Code: R41.82 - Altered mental status, unspecified Status: Acute (8) Hypertension ICD Code: I10 - Hypertension Status: Chronic (9) LAI (acute kidney injury) ICD Code: N17.9 - Acute kidney failure, unspecified Status: Acute (10) Metabolic acidosis ICD Code: E87.2 - Acidosis Status: Acute Assessment and Plan NEURO: Acute encephalopathy Ischemic Left MCA stroke -Intubated for airway protection and to facilitate studies, propofol for sedation and vent synchrony -Daily sedation location -CT of the head stat negative acute findings -MRI-Small punctate areas of signal abnormality in the posterior left temporal lobe -possible small focal areas of acute infarction. -Also several areas of signal abnormality in the basal ganglia and left posterior temporal lobes likely from prior hemorrhage. Small vessel ischemic change. -MRA essentially negative -Repeat MRI in am -12/04 EEG -left hemispheric slowing possible left hemispheric structural abnormality. No epileptiform activity -ID following see below -Follow-up lumbar puncture results, HSV pending. Cultures negative to date RESP: Acute respiratory failure from lack of airway protection COPD -12/04 Intubated for airway protection. ACV 16/500/50%/5 -SBT when mentation permits -DuoNeb every 4 hours scheduled and as needed, ventilator bundle -Sputum culture-negative to date -Daily CPAP trials but mental status will not permit extubation CV: NSTEMI Cardiomyopathy, reduced EF Possible viral myocarditis Atrial fibrillation with RVR Hypotension -s/p Normal saline 2L bolus and 84 ml per hour., Discontinued 12/06-sodium bicarbonate infusion initiated -Vasopressin to keep MAP>65 -Continue IV amiodarone, IV heparin. continue aspirin. Consider transitioning amiodarone to PO will defer to cardiology -Echo ventricular systolic function is severely reduced with an estimated EF 30- 35%. evidence of dilated cardiomyopathy. RV moderately dilated. RVEF 20- 25%. -There is moderate tricuspid regurgitation. PASP 33 mmHg. -Hold metoprolol 25 mg p.o. every 12, due to hypotension -Cardiology following Dr. Meza GI: -Jevity 20 cc/hour, advance as tolerated -famotidine GI prophylaxis -Bowel regimen / FEN: AK I Severe metabolic acidosis -Monitor renal function closely. Baca catheter. -AK I secondary to hypotension on 12/05, requiring vasopressor support. Continue to monitor -12/06 sodium bicarbonate infusion 75 cc/hr initiated -Vancomycin discontinued -Nephrology consult if creatinine is not improving ID: -Continue Rocephin, ID has discontinued vancomycin, acyclovir, Ampicillin. -F/u lumbar puncture cultures blood culture urine culture and sputum culture. No indication of acute infection on LP -Infectious diseases following Dr. Amaro -All cultures negative to date/ HSV PCR is pending HEME: -Monitor CBC, CMP, coags ENDO: Electrolyte abnormality -Electrolyte replacement protocol PROPH: -Bilateral lower extremity SCDs. IV heparin infusion , famotidine. SCDs/KRAIG LINES: -Utilize peripheral IVs, central line right subclavian (12/05) my billing statement This patient remains critically ill with one or more organ systems which are or may become a threat to life. I have spent in excess of 32 minutes discontinuously in the care and management of this patient. This time is exclusive of procedures, and includes, but is not limited to, evaluation of the patient, review of the medical record, discussions with family, consultants, nursing staff, or respiratory therapy, and documentation in the medical record.Remains critically ill with severe encephalopathy, sepsis and respiratory failure. With multiorgan involvement prognosis is guarded at this time. Discussed with NUTRITION PROGRAM INSTRUCTOR at bedside (Justen) Problem Qualifiers (1) Altered mental status: (2) Hypertension: Qualified Codes: I10 - Essential (primary) hypertension Chavo Mendieta MD Dec 07, 2017 14:01
[2017-12-07] MEDS: VASOPRESSIN INJ 40 UNITS in DEXTROSE 5% IN WATER 100ML INJ 98 ML IV SCH ×2 (14:11)
[2017-12-07 14:34] LABS: ALBUMIN 2.6 GM/DL (3.4-5.0); ALKALINE PHOSPHATASE 91 U/L (45-117); ALT (GPT) 339 U/L (10-53); AST (GOT) 170 U/L (15-37); BICARBONATE 24.9 MEQ/L (21.0-32.0); BLOOD UREA NITROGEN 54 MG/DL (7-18); CALCIUM 8.3 MG/DL (8.5-10.1); CHLORIDE 108 MEQ/L (98-107); CREATININE 1.84 MG/DL (0.50-1.00); GLOMERULAR FILTRATION RATE 27 ML/MIN (>89); GLUCOSE,RANDOM 124 MG/DL (74-106); SODIUM (NA) 144 MEQ/L (136-145); TOTAL BILIRUBIN ADULT 0.4 MG/DL (0.2-1.0); TOTAL PROTEIN 5.6 GM/DL (6.4-8.2)
--- NOTE | 2017-12-07 15:48 | HHI.PR ---
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 scheduler care Subjective Subjective Comments intubated Active Medications Current Medications Medications (Trade) Dose Ordered Sig/April Route Start Time Stop Time Status Last Admin (Duoneb Neb) 1 ampule Q2HR NEB PRN INH 12/04/17 14:00 Miscellaneous Information 1 Q361D XX 12/04/17 14:00 (Chlorhexidine 2% Cloth) 3 pack Taper DAILY@04 TOP 12/05/17 04:00 12/01/18 03:59 12/07/17 04:00 (Chlorhexidine 2% Cloth) 3 pack UNSCH PRN TOP 12/04/17 14:00 (Mera-Colace) 1 tab BID PO 12/04/17 21:00 12/05/17 08:38 (Milk Of Magnesia Liq) 30 ml Q12H PRN PO 12/04/17 14:00 (Senokot) 17.2 mg Q12H PRN PO 12/04/17 14:00 (Dulcolax Supp) 10 mg DAILY PRN RECTAL 12/04/17 14:00 (Lactulose Liq) 30 ml DAILY PRN PO 12/04/17 14:00 (D50w (Vial) Inj) 50 ml UNSCH PRN IV PUSH 12/04/17 14:00 (Glucagon Inj) 1 mg UNSCH PRN OTHER 12/04/17 14:00 (NovoLIN R SUPPLEMENTAL SCALE) 1 Q4H SQ 12/04/17 14:00 12/07/17 09:09 (Lopressor) 25 mg Q12HR PO 12/04/17 21:00 12/07/17 09:01 Thiamine HCl 100 mg/Sodium Chloride 101 ml @ 101 mls/hr DAILY@1800 IV 12/04/17 18:00 12/06/17 18:17 (Peridex 0.12% Liq) 15 ml BID@08,20 MT 12/04/17 20:00 12/07/17 09:00 Propofol 100 ml @ 2.04 mls/hr TITRATE PRN IV 12/04/17 17:30 12/07/17 06:11 (NS Flush) 2 ml UNSCH PRN IVF 12/05/17 04:15 12/06/17 08:38 (NS Flush) 2 ml BID IV FLUSH 12/05/17 09:00 12/07/17 09:00 Amiodarone HCl 450 mg/Sodium Chloride 250 ml @ 17 mls/hr [id number] IV 12/05/17 04:30 12/07/17 10:31 Heparin Sodium/ Dextrose 250 ml @ 7.72 mls/hr TITRATE PRN IV 12/05/17 07:00 12/06/17 18:40 Ceftriaxone Sodium 2000 mg/ Sodium Chloride 100 ml @ 200 mls/hr Q24H IV 12/06/17 00:00 12/06/17 23:58 (Pepcid) 10 mg Q12HR PO 12/06/17 09:00 12/07/17 09:01 (Aspirin Chew) 81 mg DAILY NG 12/07/17 09:00 12/07/17 09:01 (Duoneb Neb) 1 ampule Q6HR NEB INH 12/07/17 16:00 12/07/17 14:37 Sodium Chloride 1,000 ml @ 50 mls/hr Q20H IV 12/07/17 15:30 Allergies Allergies Coded Allergies doxycycline (Unverified Allergy, Severe, 12/04/17) minocycline (Unverified Allergy, Severe, 12/04/17) tigecycline (Unverified Allergy, Severe, 12/04/17) Exam I&O / VS 12/07/17 12/07/17 12/08/17 15:00 23:00 07:00 Intake Total 341 ml 1060.3 ml Balance 341 ml 1060.3 ml IV Total 341 ml 1060.3 ml Vital Signs Date Time Temp Pulse Resp B/P (MAP) Pulse Ox O2 Delivery O2 Flow Rate FiO2 12/07/17 14:11 76 147/59 12/07/17 13:00 98.7 82 25 145/68 (93) 100 113/80 (91) 12/07/17 12:00 98.7 75 25 145/68 (93) 100 113/80 (91) 12/07/17 12:00 40 12/07/17 12:00 72 12/07/17 11:50 100 40 12/07/17 11:22 98.4 74 27 107/88 (94) 100 12/07/17 10:31 73 143/67 12/07/17 10:00 73 12/07/17 10:00 97.9 74 28 143/67 (92) 100 128/69 (88) 12/07/17 09:00 97.8 80 28 160/77 100 135/96 12/07/17 08:15 40 12/07/17 08:15 100 40 12/07/17 08:00 97.8 75 23 143/67 (92) 100 115/74 (88) 12/07/17 08:00 40 12/07/17 08:00 72 12/07/17 07:00 97.8 75 23 143/67 (92) 100 115/74 (88) 12/07/17 06:00 75 12/07/17 06:00 75 21 149/68 (95) 100 154/71 (98) 12/07/17 05:00 73 21 125/59 (81) 100 97/56 (70) 12/07/17 04:00 40 12/07/17 04:00 77 12/07/17 04:00 97.6 77 23 141/94 (110) 98 12/07/17 03:37 100 40 12/07/17 03:00 77 21 135/60 (85) 100 104/91 (95) 12/07/17 02:00 84 26 138/63 (88) 100 145/65 (91) 12/07/17 02:00 84 12/07/17 01:00 90 25 152/70 (97) 99 156/65 (95) 12/07/17 00:24 99 40 12/07/17 00:00 90 12/07/17 00:00 40 12/07/17 00:00 100.4 90 25 150/70 (96) 99 154/66 (95) 12/06/17 23:57 90 154/64 12/06/17 23:00 91 25 155/74 (101) 99 160/71 (100) 12/06/17 22:00 90 12/06/17 22:00 90 26 152/71 (98) 99 158/68 (98) 12/06/17 21:00 89 27 153/74 (100) 99 152/63 (92) 12/06/17 20:24 99 40 12/06/17 20:00 144 12/06/17 20:00 40 12/06/17 20:00 99.0 144 27 137/70 (92) 99 136/67 (90) 12/06/17 19:56 129 133/61 12/06/17 19:20 141 118/53 12/06/17 19:10 134 119/54 12/06/17 19:00 100.2 144 27 145/66 (92) 99 146/66 (92) 12/06/17 18:00 100.2 97 29 153/73 (99) 99 115/100 (105) 12/06/17 18:00 97 12/06/17 17:00 100.0 138 26 134/62 (86) 99 99/71 (80) 12/06/17 16:00 133 12/06/17 16:00 40 12/06/17 16:00 99.9 133 29 152/68 (96) 98 128/71 (90) Objective Micro and Labs Laboratory Tests Test 12/06/17 16:00 12/06/17 21:00 12/06/17 22:10 12/07/17 04:15 Blood Gas Puncture Site ART LINE Blood Gas Patient Temperature 98.6 Blood Gas HCO3 18 Blood Gas Base Excess -6.5 Blood Gas Oxygen Saturation 97 Arterial Blood pH 7.36 Arterial Blood Partial Pressure CO2 32 Arterial Blood Partial Pressure O2 159 Arterial Blood Oxygen Content 14.4 Arterial Blood Carboxyhemoglobin 0.5 Arterial Blood Methemoglobin 1.3 Blood Gas Hemoglobin 10.3 Oxygen Delivery Device VENTILATOR Blood Gas Ventilator Setting PRVCAC/VT500/R16/P5 Blood Gas Inspired Oxygen 40 Urine Eosinophils NONE SEEN Activated Partial Thromboplast Time 42.5 45.4 Test 12/07/17 05:00 12/07/17 13:50 White Blood Count 8.2 Red Blood Count 3.38 Hemoglobin 9.4 Hematocrit 27.7 Mean Corpuscular Volume 81.9 Mean Corpuscular Hemoglobin 27.9 Mean Corpuscular Hemoglobin Concent 34.0 Red Cell Distribution Width 12.6 Platelet Count 96 Mean Platelet Volume 10.2 Neutrophils (%) (Auto) 79.4 Lymphocytes (%) (Auto) 12.2 Monocytes (%) (Auto) 7.5 Eosinophils (%) (Auto) 0.3 Basophils (%) (Auto) 0.6 Neutrophils # (Auto) 6.5 Lymphocytes # (Auto) 1.0 Monocytes # (Auto) 0.6 Eosinophils # (Auto) 0.0 Basophils # (Auto) 0.1 CBC Comment AUTO DIFF Differential Comment AUTO DIFF CONFIRMED Platelet Estimate LOW Platelet Morphology Comment NORMAL Blood Urea Nitrogen 54 Creatinine 1.84 Random Glucose 124 Total Protein 5.6 Albumin 2.6 Calcium Level 8.3 Alkaline Phosphatase 91 Aspartate Amino Transf (AST/SGOT) 170 Alanine Aminotransferase (ALT/SGPT) 339 Total Bilirubin 0.4 Sodium Level 144 Potassium Level 3.8 Chloride Level 108 Carbon Dioxide Level 24.9 Anion Gap 11 Estimat Glomerular Filtration Rate 27 Date/Time Source Procedure Growth Status 12/04/17 11:38 Blood Peripheral Aerobic Blood Culture - Preliminary NO GROWTH IN 3 DAYS Resulted 12/04/17 11:38 Blood Peripheral Anaerobic Blood Culture - Preliminary NO GROWTH IN 3 DAYS Resulted 12/04/17 14:50 Cerebral Spinal Fluid Lumbar Puncture Fungal Smear Pending Received 12/04/17 14:50 Cerebral Spinal Fluid Lumbar Puncture Fungal Culture Pending Received 12/04/17 18:00 Sputum Endotracheal Gram Stain - Final Complete 12/04/17 18:00 Sputum Endotracheal Sputum Culture - Final HEAVY GROWTH NORMAL RESPIRATORY GURMEET Complete 12/06/17 06:30 Urine Catheterized Urine Urine Culture - Preliminary NO GROWTH IN 24 HOURS. Resulted Sae Hayward MD Dec 07, 2017 15:48
[2017-12-07] MEDS: SODIUM CHLOR 0.9% 1000 ML INJ 1,000 ML IV SCH (15:55)
[2017-12-07] MEDS: THIAMINE INJ 100 MG in SODIUM CHLORIDE 0.9% INJ 100 ML IV SCH (17:27)
[2017-12-07] MEDS: HEPARIN-D5W 25,000 U/250 ML 250 ML IV PRN (17:34)
[2017-12-07] MEDS: cefTRIAXone INJ 2,000 MG in SODIUM CHLORIDE 0.9% INJ 100 ML IV SCH (23:18)
[2017-12-08] VITALS (26 sets, daily range): BP systolic 98–167; BP diastolic 37–94; PULSE 67–126; RESP 1–43; TEMP 98.8–99.6; O2SAT 99–100
[2017-12-08] MEDS: INSULIN NovoLIN REGULAR SUPPLEMENTAL SCALE SQ SCH ×6 (02:00→20:41)
[2017-12-08] MEDS: AMIODARONE INJ 450 MG in SODIUM CHLOR 0.9% (EXCEL) INJ 241 ML IV SCH ×2 (02:10→16:33)
[2017-12-08] MEDS: PROPOFOL 1000 MG/100 ML INJ 100 ML IV PRN ×2 (03:00→16:33)
[2017-12-08] MEDS: CHLORHEXIDINE GLUCONATE 2 % 1 PACK (2 CLOTHS) TOP SCH (04:00)
--- NOTE | 2017-12-08 04:22 | RADRPT ---
EXAM DATE/TIME: 12/08/2017 03:05 [facility] COMPARISON: CHEST SINGLE AP, December 07, 2017, 3:47. INDICATIONS : Short of breath. MEDICAL HISTORY : Hypertension. SURGICAL HISTORY : None. ENCOUNTER: Subsequent ACUITY: 4 - 6 days PAIN SCORE: 0/10 LOCATION: Bilateral chest FINDINGS: Endotracheal tube tip in good position. NG enters stomach. Right central line in superior vena cava. Bilateral mostly basilar airspace disease present. No significant effusion. No pneumothorax. Previous malaika fixation right humerus. CONCLUSION: 1. Endotracheal tube and nasogastric tube in satisfactory position. Mild basilar airspace disease per sists. Shay Rausch MD on December 08, 2017 at 4:19 Board Certified Radiologist. This report was verified electronically.
[2017-12-08 04:41] LABS: ALBUMIN 2.4 GM/DL (3.4-5.0); ALT (GPT) 341 U/L (10-53); AST (GOT) 180 U/L (15-37); AUTOMATED NEUTROPHIL # 8.2 TH/MM3 (1.8-7.7); BASOPHIL % 0.4 % (0.0-2.0); BICARBONATE 23.8 MEQ/L (21.0-32.0); BLOOD UREA NITROGEN 54 MG/DL (7-18); CHLORIDE 111 MEQ/L (98-107); CREATININE 1.61 MG/DL (0.50-1.00); EOSINOPHIL % 0.3 % (0.0-4.0); GLOMERULAR FILTRATION RATE 31 ML/MIN (>89); GLUCOSE,RANDOM 121 MG/DL (74-106); HEMATOCRIT 29.1 % (35.0-46.0); HEMOGLOBIN 9.9 GM/DL (11.6-15.3); LYMPH % 13.2 % (9.0-44.0); LYMPHOCYTE # 1.4 TH/MM3 (1.0-4.8); MAGNESIUM 2.6 MG/DL (1.5-2.5); MEAN CELL VOLUME 81.9 FL (80.0-100.0); MEAN CORPUSCULAR HEMOGLOBIN 27.8 PG (27.0-34.0); MEAN PLATELET VOLUME 10.8 FL (7.0-11.0); MONO % 6.8 % (0.0-8.0); MONOCYTE # 0.7 TH/MM3 (0-0.9); NEUT % 79.3 % (16.0-70.0); PLATELET COUNT 125 TH/MM3 (150-450); RED BLOOD COUNT 3.55 MIL/MM3 (4.00-5.30); RED CELL DISTRIBUTION WIDTH 12.5 % (11.6-17.2); SODIUM (NA) 146 MEQ/L (136-145); WHITE BLOOD COUNT 10.3 TH/MM3 (4.0-11.0)
[2017-12-08 04:43] LABS: ALKALINE PHOSPHATASE 121 U/L (45-117); TOTAL BILIRUBIN ADULT 0.3 MG/DL (0.2-1.0); TOTAL PROTEIN 5.5 GM/DL (6.4-8.2)
[2017-12-08] MEDS: RESP: ALBUTEROL 2.5 MG/IPRATROPIUM 0.5 MG NEB (SCH) INH ×4 (04:43→21:56)
--- NOTE | 2017-12-08 08:06 | HHI.CCPN ---
Subjective Remarks/Hospital Course 77-year-old female who is apparently very active at baseline, with past medical history significant for hypertension and previous TIA, tobacco abuse. She was seen last normal yesterday night at 7 PM. Her friends checked on her today morning and was found down, disoriented, staring off to the left, not answering questions. I am not able to get much further history from her. She has a fever of 101 in the ER, initially and then spiked to 103.7. ER workup included a CT scan of head which was negative for acute findings. Lab work showed a white count of 15.9 with left shift, lactic acid was 3.4, troponin was elevated at 8.7. Cardiology Dr. Meza was contacted aspirin was given patient was recommended to be started on IV heparin but was held for LP. Lumbar puncture was unremarkable nevertheless patient was started on meningitic doses of vancomycin and Rocephin. I have added ampicillin 2 g IV every 4 hours, and acyclovir 680 mg IV every 8 hours. I evaluated the patient in the ICU. Patient is severely altered tachypneic in moderate distress. Patient is aphasic with left gaze preference diminished movements of the right upper and lower extremity. A bedside echo shows reduced EF approximately 20-25%, global hypokinesis. Patient has no history of cardiomyopathy to my knowledge. At this time his stroke cannot be ruled out. Stat MRI MRA had been ordered. Due to altered mentation tachypnea and lack of airway protection patient was intubated and placed on mechanical ventilation SUBJECTIVE: 12/05: Remains intubated sedated. MRI brain showing small punctate areas of signal abnormality in the posterior left temporal lobe-possible small focal areas of acute infarction. Also several areas of signal abnormality in the basal ganglia and left posterior temporal lobes likely from prior hemorrhage. Demyelination within the cerebral and pontine white matter likely from small vessel ischemic change. Neurology consult. Stat EEG is pending. Fever is down trending afebrile now, developed atrial fibrillation with RVR started on amiodarone infusion. I have resumed heparin infusion. 12/06: Afebrile. Last evening the patient had decreased mat requiring additional pressor support vasopressin added to medication regimen and diminished urinary output. Patient was noted to have significant elevation in creatinine this a.m. Patient remains on vasopressin and norepinephrine vasopressor support. Patient continues on amiodarone infusion, plan to transition to p.o.. Sedation vacation initiated yesterday for EEG, per report patient following commands. Sedation vacation in progress at this time. Noticed slight elevation in WBC count, repeat urine culture pending. 12/07: Remains intubated sedated. Currently on IV heparin infusion, amiodarone infusion and vasopressin gtt to maintain MAP >65. Had developed acute kidney injury yesterday creatinine had bumped to 2. Urine output 550 mL in the last 24 hours. CMP today is pending. On sedation hold patient opens eyes weakly moves extremities do not follow commands. Remains severely encephalopathy 12/08: No events over the night. Patient remains encephalopathic, opens eyes to voice stimuli, but does not consistently follow commands. She remains on amiodarone and heparin infusions, no pressors. T-max of 99.6. I/O 2250/960, more than 11 L positive since admission if correctly documented. Objective Vital Signs Date Time Temp Pulse Resp B/P (MAP) Pulse Ox O2 Delivery O2 Flow Rate FiO2 12/08/17 04:40 100 40 12/08/17 04:00 99.6 126 26 151/81 (104) 159/70 (99) 12/05/17 03:59 Ventilator 12/04/17 21:42 15.00 Intake and Output 12/08/17 12/08/17 12/09/17 08:00 16:00 00:00 Intake Total 241 ml Output Total 450 ml Balance -209 ml Result Diagram: 12/08/17 0330 12/08/17 0330 Imaging Last 24 hours Impressions Chest X-Ray 12/08/17 0600 Signed Impressions: Service Date/Time: Friday, December 08, 2017 03:05 - CONCLUSION: 1. Endotracheal tube and nasogastric tube in satisfactory position. Mild basilar airspace disease persists. Shay Rausch MD Last Impressions Chest X-Ray 12/05/17 0000 Signed Impressions: Service Date/Time: Tuesday, December 05, 2017 13:23 - CONCLUSION: 1. Interval placement of a right subclavian central venous catheter with the tip projecting over the central venous system. No pneumothorax 2. Lungs remain hyperinflated with probable bibasilar atelectasis. 3. Compensated cardiomegaly. Mahendra Poe MD Chest CT 12/04/17 1154 Signed Impressions: Service Date/Time: Monday, December 04, 2017 12:43 - CONCLUSION: Probable mild congestive failure with trace pleural effusions. No evidence for mass. Jean-Paul Hoffmann MD FACR Head CT 12/04/17 1126 Signed Impressions: Service Date/Time: Monday, December 04, 2017 12:37 - CONCLUSION: Stable brain appearance. No acute intracranial findings Anam Rojas MD Neck Magnetic Resonance Angiography 12/04/17 0000 Signed Impressions: Service Date/Time: Monday, December 04, 2017 20:36 - CONCLUSION: 1. Mild plaque at the right carotid bulb/proximal internal carotid artery without significant stenosis. 2. Significant opacification of the aortic arch and origins of the great vessels is not present. These areas cannot be evaluated. Anam Donis MD Head Magnetic Resonance Angiography 12/04/17 0000 Signed Impressions: Service Date/Time: Monday, December 04, 2017 20:36 - CONCLUSION: No acute disease. nAam Donis MD Brain MRI 12/04/17 0000 Signed Impressions: Service Date/Time: Monday, December 04, 2017 20:36 - CONCLUSION: 1. Small punctate areas of signal abnormality in the posterior left temporal lobe which may represent small focal areas of acute infarction. 2. Several areas of signal abnormality in the basal ganglia and left posterior temporal lobes likely from prior hemorrhage. 3. Demyelination within the cerebral and pontine white matter likely from small vessel ischemic change. Anam Donis MD Objective Remarks GENERAL: Elderly lady, intubated, on minimal sedation, lethargic, arousable, ill -appearing SKIN: Warm and dry HEAD: Atraumatic. Normocephalic. EYES: Pupils equal and round, reactive. Sclerae anicteric. ENT: No nasal bleeding or discharge. Orally intubated NECK: Trachea midline. No JVD. CARDIOVASCULAR: Regular rate and rhythm. S1 S2, no murmurs. RESPIRATORY: Bilateral coarse breath sounds, no wheezes, good air entry bilateral. GASTROINTESTINAL: Abdomen soft, non-tender, nondistended. Bowel sounds present. MUSCULOSKELETAL: No obvious deformities. No clubbing. No cyanosis. Bilateral upper and lower extremity 1+ edema. NEUROLOGICAL: Remains on minimal sedation. Lethargic but arousable, follows some commands inconsistently, opens eyes to voice stimuli, tracking, wiggles toes. A/P Problem List: (1) Acute metabolic encephalopathy ICD Code: G93.41 - Metabolic encephalopathy Status: Acute (2) Paroxysmal atrial fibrillation with rapid ventricular response ICD Code: I48.0 - Paroxysmal atrial fibrillation Status: Acute (3) Lactic acidemia ICD Code: E87.2 - Acidosis Status: Acute (4) Cardiomyopathy ICD Code: I42.9 - Cardiomyopathy, unspecified Status: Chronic (5) Non-ST elevation [place] (NSTEMI) ICD Code: I21.4 - Non-ST elevation (NSTEMI) myocardial infarction Status: Acute (6) Severe sepsis ICD Code: A41.9 - Sepsis, unspecified organism; R65.20 - Severe sepsis without septic shock Status: Acute (7) Altered mental status ICD Code: R41.82 - Altered mental status, unspecified Status: Acute (8) Hypertension ICD Code: I10 - Hypertension Status: Chronic (9) LAI (acute kidney injury) ICD Code: N17.9 - Acute kidney failure, unspecified Status: Acute (10) Metabolic acidosis ICD Code: E87.2 - Acidosis Status: Acute Assessment and Plan NEURO: Acute encephalopathy Ischemic Left MCA stroke -Intubated for airway protection and to facilitate studies, propofol for sedation and vent synchrony -Daily sedation location -CT of the head stat negative acute findings -MRI-Small punctate areas of signal abnormality in the posterior left temporal lobe -possible small focal areas of acute infarction. -Also several areas of signal abnormality in the basal ganglia and left posterior temporal lobes likely from prior hemorrhage. Small vessel ischemic change. -MRA essentially negative -12/04 EEG -left hemispheric slowing possible left hemispheric structural abnormality. No epileptiform activity -Underwent LP, cultures negative to date RESP: Acute respiratory failure from lack of airway protection COPD -12/04 Intubated for airway protection. ACV 16/500/40%/5 -Continue PRVC at current vent settings, patient synchronized with vent, no auto PEEP, Pip 23 -DuoNeb every 4 hours scheduled and as needed, ventilator bundle -CPAP today but I am not sure mental status will allow safe extubation CV: NSTEMI Cardiomyopathy, with reduced EF Possible viral myocarditis Atrial fibrillation with RVR Hypotension -resolved -Continue IV amiodarone, IV heparin. continue aspirin. Consider transitioning amiodarone to PO will defer to cardiology -Echo ventricular systolic function is severely reduced with an estimated EF 30- 35%. evidence of dilated cardiomyopathy. RV moderately dilated. RVEF 20- 25%. -There is moderate tricuspid regurgitation. PASP 33 mmHg. -We will restart metoprolol 25 mg p.o. every 12, when BP allows -Cardiology following Dr. Meza GI: -Continue tube feeds -famotidine GI prophylaxis -Bowel regimen / FEN: LAI -creatinine trending down Severe metabolic acidosis Volume overload -positive more than 11 L since admission -Monitor renal function closely. Baca catheter. -LAI secondary to hypotension on 12/05, requiring vasopressor support. Continue to monitor -12/06 sodium bicarbonate infusion 75 cc/hr initiated -Vancomycin discontinued -Nephrology consult if creatinine is not improving -Start diuresis today ID: -Continue Rocephin, ID has discontinued vancomycin, acyclovir, ampicillin. -F/u lumbar puncture cultures blood culture urine culture and sputum culture. No indication of acute infection on LP -Infectious diseases following Dr. Amaro -All cultures negative to date/ HSV PCR is pending HEME: -Monitor CBC, CMP, coags ENDO: Electrolyte abnormality -Electrolyte replacement protocol PROPH: -Bilateral lower extremity SCDs. IV heparin infusion , famotidine. SCDs/KRAIG LINES: -Utilize peripheral IVs, central line right subclavian (12/05) Level 3 follow-up Problem Qualifiers (1) Altered mental status: (2) Hypertension: Qualified Codes: I10 - Essential (primary) hypertension Kiel Hernandez MD Dec 08, 2017 08:06
[2017-12-08] MEDS ORDERED: FUROSEMIDE 40 MG/4 ML VIAL IV PUSH ONE (08:15)
[2017-12-08] MEDS: CHLORHEXIDINE 0.12% (ORAL KIT) 15 ML CUP MT SCH ×2 (08:27→20:26)
[2017-12-08] MEDS: DOCUSATE SODIUM 50 MG/SENNA 8.6 MG TAB PO SCH ×2 (08:28→20:33)
[2017-12-08] MEDS: METOPROLOL TARTRATE 25 MG TAB PO SCH ×2 (08:28→20:34)
[2017-12-08] MEDS: ASPIRIN 81 MG CHEW TAB NG SCH (08:28)
[2017-12-08] MEDS: FAMOTIDINE 20 MG TAB PO SCH ×2 (08:28→20:34)
[2017-12-08] MEDS: SODIUM CHLORIDE 0.9% FLUSH 10 ML FLUSH IVF PRN (08:28)
[2017-12-08] MEDS: SODIUM CHLORIDE FLUSH BID IV FLUSH SCH ×2 (08:28→20:33)
[2017-12-08 09:03] LABS: HSV 1,PCR Negative (Negative)
--- NOTE | 2017-12-08 09:23 | PD.CARD.PN ---
Subjective Subjective Remarks on vent, off pressors Objective Medications Current Medications Medications (Trade) Dose Ordered Sig/April Route Start Time Stop Time Status Last Admin (Duoneb Neb) 1 ampule Q2HR NEB PRN INH 12/04/17 14:00 Miscellaneous Information 1 Q361D XX 12/04/17 14:00 (Chlorhexidine 2% Cloth) 3 pack Taper DAILY@04 TOP 12/05/17 04:00 12/01/18 03:59 12/08/17 04:00 (Chlorhexidine 2% Cloth) 3 pack UNSCH PRN TOP 12/04/17 14:00 (Mera-Colace) 1 tab BID PO 12/04/17 21:00 12/08/17 08:28 (Milk Of Magnesia Liq) 30 ml Q12H PRN PO 12/04/17 14:00 (Senokot) 17.2 mg Q12H PRN PO 12/04/17 14:00 (Dulcolax Supp) 10 mg DAILY PRN RECTAL 12/04/17 14:00 (Lactulose Liq) 30 ml DAILY PRN PO 12/04/17 14:00 (D50w (Vial) Inj) 50 ml UNSCH PRN IV PUSH 12/04/17 14:00 (Glucagon Inj) 1 mg UNSCH PRN OTHER 12/04/17 14:00 (NovoLIN R SUPPLEMENTAL SCALE) 1 Q4H SQ 12/04/17 14:00 12/07/17 09:09 (Lopressor) 25 mg Q12HR PO 12/04/17 21:00 12/08/17 08:28 Thiamine HCl 100 mg/Sodium Chloride 101 ml @ 101 mls/hr DAILY@1800 IV 12/04/17 18:00 12/07/17 17:27 (Peridex 0.12% Liq) 15 ml BID@08,20 MT 12/04/17 20:00 12/08/17 08:27 Propofol 100 ml @ 2.04 mls/hr TITRATE PRN IV 12/04/17 17:30 12/08/17 03:00 (NS Flush) 2 ml UNSCH PRN IVF 12/05/17 04:15 12/08/17 08:28 (NS Flush) 2 ml BID IV FLUSH 12/05/17 09:00 12/08/17 08:28 Amiodarone HCl 450 mg/Sodium Chloride 250 ml @ 17 mls/hr [id number] IV 12/05/17 04:30 12/07/17 02:00 Heparin Sodium/ Dextrose 250 ml @ 7.72 mls/hr TITRATE PRN IV 12/05/17 07:00 12/07/17 17:34 Ceftriaxone Sodium 2000 mg/ Sodium Chloride 100 ml @ 200 mls/hr Q24H IV 12/06/17 00:00 12/07/17 23:18 (Pepcid) 10 mg Q12HR PO 12/06/17 09:00 12/08/17 08:28 (Aspirin Chew) 81 mg DAILY NG 12/07/17 09:00 12/08/17 08:28 (Duoneb Neb) 1 ampule Q6HR NEB INH 12/07/17 16:00 12/08/17 08:21 Sodium Chloride 1,000 ml @ 50 mls/hr Q20H IV 12/07/17 15:30 12/07/17 15:55 Vital Signs / I&O Vital Signs Date Time Temp Pulse Resp B/P (MAP) Pulse Ox O2 Delivery O2 Flow Rate FiO2 12/08/17 08:15 40 12/08/17 08:15 40 12/08/17 08:03 100 Ventilator 40 12/08/17 08:03 100 40 12/08/17 08:00 40 12/08/17 04:40 100 40 12/08/17 04:00 40 12/08/17 04:00 99.6 126 26 151/81 (104) 100 159/70 (99) 12/08/17 02:10 75 103/83 12/08/17 01:44 100 40 12/08/17 00:00 99.3 75 25 98/64 (75) 100 133/70 (91) 12/08/17 00:00 40 12/07/17 21:52 100 40 12/07/17 20:00 98.5 110 23 135/63 (87) 100 152/69 (96) 12/07/17 20:00 40 12/07/17 18:00 113 12/07/17 16:10 100 40 12/07/17 16:00 83 12/07/17 16:00 98.9 82 22 123/44 (70) 100 125/43 (70) 12/07/17 16:00 40 12/07/17 14:11 76 147/59 12/07/17 14:00 85 12/07/17 13:00 98.7 82 25 145/68 (93) 100 113/80 (91) 12/07/17 12:00 98.7 75 25 145/68 (93) 100 113/80 (91) 12/07/17 12:00 40 12/07/17 12:00 72 12/07/17 11:50 100 40 12/07/17 11:22 98.4 74 27 107/88 (94) 100 12/07/17 10:31 73 143/67 12/07/17 10:00 73 12/07/17 10:00 97.9 74 28 143/67 (92) 100 128/69 (88) I/O 12/07/17 12/07/17 12/07/17 12/08/17 12/08/17 12/08/17 07:00 15:00 23:00 07:00 15:00 23:00 Intake Total 2706.4 ml 341 ml 1668.3 ml 241 ml 116.3 ml Output Total 375 ml 450 ml 450 ml Balance 2331.4 ml 341 ml 1218.3 ml -209 ml 116.3 ml Intake Oral 0 ml IV Total 2137.4 ml 341 ml 1411.3 ml 241 ml 116.3 ml Tube Feeding 449 ml 257 ml Tube Irrigant 120 ml Output Urine Total 375 ml 450 ml 450 ml Gastric Drainage Total 0 ml # Bowel Movements 1 Physical Exam on vent. Neck + JVD Chest + rhonchi CV: Currently SR but intermittent AF on IV amio Abd soft Ext: no edema LFT's and BUN/creat trending down Laboratory Laboratory Tests Test 12/07/17 13:50 12/08/17 03:30 Blood Urea Nitrogen 54 MG/DL 54 MG/DL Creatinine 1.84 MG/DL 1.61 MG/DL Random Glucose 124 MG/DL 121 MG/DL Total Protein 5.6 GM/DL 5.5 GM/DL Albumin 2.6 GM/DL 2.4 GM/DL Calcium Level 8.3 MG/DL 8.0 MG/DL Alkaline Phosphatase 91 U/L 121 U/L Aspartate Amino Transf (AST/SGOT) 170 U/L 180 U/L Alanine Aminotransferase (ALT/SGPT) 339 U/L 341 U/L Total Bilirubin 0.4 MG/DL 0.3 MG/DL Sodium Level 144 MEQ/L 146 MEQ/L Potassium Level 3.8 MEQ/L 3.5 MEQ/L Chloride Level 108 MEQ/L 111 MEQ/L Carbon Dioxide Level 24.9 MEQ/L 23.8 MEQ/L Anion Gap 11 MEQ/L 11 MEQ/L Estimat Glomerular Filtration Rate 27 ML/MIN 31 ML/MIN White Blood Count 10.3 TH/MM3 Red Blood Count 3.55 MIL/MM3 Hemoglobin 9.9 GM/DL Hematocrit 29.1 % Mean Corpuscular Volume 81.9 FL Mean Corpuscular Hemoglobin 27.8 PG Mean Corpuscular Hemoglobin Concent 34.0 % Red Cell Distribution Width 12.5 % Platelet Count 125 TH/MM3 Mean Platelet Volume 10.8 FL Neutrophils (%) (Auto) 79.3 % Lymphocytes (%) (Auto) 13.2 % Monocytes (%) (Auto) 6.8 % Eosinophils (%) (Auto) 0.3 % Basophils (%) (Auto) 0.4 % Neutrophils # (Auto) 8.2 TH/MM3 Lymphocytes # (Auto) 1.4 TH/MM3 Monocytes # (Auto) 0.7 TH/MM3 Eosinophils # (Auto) 0.0 TH/MM3 Basophils # (Auto) 0.0 TH/MM3 CBC Comment AUTO DIFF Differential Comment AUTO DIFF CONFIRMED Activated Partial Thromboplast Time 33.0 SEC Magnesium Level 2.6 MG/DL Imaging Last 24 hours Impressions Chest X-Ray 12/08/17 0600 Signed Impressions: Service Date/Time: Friday, December 08, 2017 03:05 - CONCLUSION: 1. Endotracheal tube and nasogastric tube in satisfactory position. Mild basilar airspace disease persists. Shay Rausch MD Assessment and Plan Problem List: (1) Paroxysmal atrial fibrillation with rapid ventricular response ICD Codes: I48.0 - Paroxysmal atrial fibrillation Status: Acute (2) Altered mental status ICD Codes: R41.82 - Altered mental status, unspecified Status: Acute (3) Severe sepsis ICD Codes: A41.9 - Sepsis, unspecified organism; R65.20 - Severe sepsis without septic shock Status: Acute (4) Non-ST elevation [place] (NSTEMI) ICD Codes: I21.4 - Non-ST elevation (NSTEMI) myocardial infarction Status: Acute (5) Cardiomyopathy ICD Codes: I42.9 - Cardiomyopathy, unspecified Status: Chronic (6) CVA (cerebral infarction) ICD Codes: I63.9 - Cerebral infarction Status: Acute (7) Shock liver ICD Codes: K72.00 - Acute and subacute hepatic failure without coma (8) LAI (acute kidney injury) ICD Codes: N17.9 - Acute kidney failure, unspecified Status: Acute Assessment and Plan Slowly improving. Off pressors. Problem Qualifiers (1) Altered mental status: Rich Meza MD Dec 08, 2017 09:23
[2017-12-08] MEDS: SODIUM CHLOR 0.9% 1000 ML INJ 1,000 ML IV SCH (12:23)
--- NOTE | 2017-12-08 13:57 | HHI.IDPN ---
Subjective Subjective Remarks Ms. Rausch is a 77-year-old female who reportedly is very active at baseline. The nurse taking care of the patient reports to me the patient was expected to be at the gym and when she did not show up of friends into the home and was found down, disoriented, staring off to the left not answering any questions. Her past medical history significant for hypertension, previous TIA and tobacco abuse. Patient was reportedly seen normal at 7 PM the night before when she was attending a car show. When in the emergency room her temperature was 101 and it spiked 203.7. ER workup included a CT scan which is negative for acute findings. Lab workup showed WBC 15.9 with a leftward shift, elevated lactic acid at 3.4 and an elevated troponin and 8.7. Cardiology was consulted and patient was given aspirin and recommended that IV heparin be started. IV heparin was not started because of lumbar puncture. Upon review of the numbers for lumbar puncture appears unremarkable with the minimal elevation of total protein. Patient had a sepsis workup initiated and started on meningitis doses for vancomycin and Rocephin, ampicillin as well as acyclovir IV. All the lumbar puncture studies as well as blood cultures are pending at the present time. Patient was found to be a phasic with a leftward gaze and diminished movements of the right upper and lower extremities. Patient was intubated for airway protection. A 2D echo done showed 20-25% EF with global hypokinesis. No prior history of any seizure disorder per review of records. No reported history of drug abuse. Infectious disease is consulted for evaluation and management of possible meningitis. Notes reviewed Failed CPAP trial. Not much trach secretions. Some oral secretions. CXR faint basilar infiltrates. CSF and blood cultures negative. LP with minimal elevated total protein. MRI brain noted. CT chest, prob mild CHF and trace effusions Antibiotics Vancomycin Rocephin Acyclovir Current Medications Medications (Trade) Dose Ordered Sig/April Route Start Time Stop Time Status Last Admin (Duoneb Neb) 1 ampule Q4HR NEB INH 12/04/17 16:00 12/06/17 11:34 (Duoneb Neb) 1 ampule Q2HR NEB PRN INH 12/04/17 14:00 Miscellaneous Information 1 Q361D XX 12/04/17 14:00 (Chlorhexidine 2% Cloth) 3 pack Taper DAILY@04 TOP 4/21/18 04:00 12/01/18 03:59 12/06/17 04:00 (Chlorhexidine 2% Cloth) 3 pack UNSCH PRN TOP 12/04/17 14:00 (Mera-Colace) 1 tab BID PO 12/04/17 21:00 12/05/17 08:38 (Milk Of Magnesia Liq) 30 ml Q12H PRN PO 12/04/17 14:00 (Senokot) 17.2 mg Q12H PRN PO 12/04/17 14:00 (Dulcolax Supp) 10 mg DAILY PRN RECTAL 12/04/17 14:00 (Lactulose Liq) 30 ml DAILY PRN PO 12/04/17 14:00 Vancomycin HCl 1000 mg/Sodium Chloride 250 ml @ 250 mls/hr Q12H IV 12/04/17 15:00 12/06/17 03:20 (D50w (Vial) Inj) 50 ml UNSCH PRN IV PUSH 12/04/17 14:00 (Glucagon Inj) 1 mg UNSCH PRN OTHER 12/04/17 14:00 (NovoLIN R SUPPLEMENTAL SCALE) 1 Q4H SQ 12/04/17 14:00 12/06/17 10:00 (Lopressor) 25 mg Q12HR PO 12/04/17 21:00 12/04/17 19:49 Acyclovir Sodium 680 mg/Sodium Chloride 100 ml @ 100 mls/hr Q8H IV 12/04/17 18:00 12/06/17 11:44 Thiamine HCl 100 mg/Sodium Chloride 101 ml @ 101 mls/hr DAILY@1800 IV 12/04/17 18:00 12/05/17 17:21 (Peridex 0.12% Liq) 15 ml BID@08,20 MT 12/04/17 20:00 12/06/17 08:30 Propofol 100 ml @ 2.04 mls/hr TITRATE PRN IV 12/04/17 17:30 12/06/17 05:04 (NS Flush) 2 ml UNSCH PRN IVF 12/05/17 04:15 12/06/17 08:38 (NS Flush) 2 ml BID IV FLUSH 12/05/17 09:00 12/06/17 08:37 Amiodarone HCl 450 mg/Sodium Chloride 250 ml @ 33 mls/hr [id number] IV 12/05/17 04:30 12/06/17 05:07 Heparin Sodium/ Dextrose 250 ml @ 7.72 mls/hr TITRATE PRN IV 12/05/17 07:00 12/05/17 15:39 Ceftriaxone Sodium 2000 mg/ Sodium Chloride 100 ml @ 200 mls/hr Q24H IV 12/06/17 00:00 12/05/17 23:27 Vasopressin 40 units/Dextrose 100 ml @ 6 mls/hr [id number] IV 12/05/17 11:00 12/06/17 00:05 Norepinephrine Bitartrate 250 ml @ 7.5 mls/hr TITRATE PRN IV 12/05/17 12:00 12/06/17 03:10 (Pepcid) 10 mg Q12HR PO 12/06/17 09:00 12/06/17 08:32 Sodium Bicarbonate 150 meq/Dextrose 1,150 ml @ 75 mls/hr [id number] IV 12/06/17 09:00 12/06/17 10:01 Lines Line no evidenc of infection Past Medical History Hypertension Previous CVA/TIA Tobacco abuse Past Surgical History Cataract surgery Breast augmentation Allergies: Coded Allergies: doxycycline (Unverified Allergy, Severe, 12/04/17) ALTERED MENTAL STATUS minocycline (Unverified Allergy, Severe, 12/04/17) ALTERED MENTAL STATUS tigecycline (Unverified Allergy, Severe, 12/04/17) ALTERED MENTAL STATUS Objective . Vital Signs Date Time Temp Pulse Resp B/P (MAP) Pulse Ox O2 Delivery O2 Flow Rate FiO2 12/08/17 12:00 99.0 76 22 143/67 (92) 100 142/60 (87) 12/08/17 12:00 40 12/08/17 12:00 76 12/08/17 11:32 100 40 12/08/17 11:00 75 25 144/66 (92) 100 143/52 (82) 12/08/17 10:10 40 12/08/17 10:00 77 12/08/17 10:00 77 37 154/72 (99) 99 118/89 (99) 12/08/17 09:00 74 18 159/70 (99) 100 133/74 (93) 12/08/17 08:15 40 12/08/17 08:15 40 12/08/17 08:03 100 Ventilator 40 4/24/18 08:03 100 40 12/08/17 08:00 40 12/08/17 08:00 98.8 81 28 167/79 (108) 100 143/92 (109) 12/08/17 08:00 81 12/08/17 07:00 77 1 137/65 (89) 100 143/59 (87) 12/08/17 04:40 100 40 12/08/17 04:00 40 12/08/17 04:00 99.6 126 26 151/81 (104) 100 159/70 (99) 12/08/17 02:10 75 103/83 12/08/17 01:44 100 40 12/08/17 00:00 99.3 75 25 98/64 (75) 100 133/70 (91) 12/08/17 00:00 40 12/07/17 21:52 100 40 12/07/17 20:00 98.5 110 23 135/63 (87) 100 152/69 (96) 12/07/17 20:00 40 12/07/17 18:00 113 12/07/17 16:10 100 40 12/07/17 16:00 83 12/07/17 16:00 98.9 82 22 123/44 (70) 100 125/43 (70) 12/07/17 16:00 40 12/07/17 14:11 76 147/59 12/07/17 14:00 85 12/08/17 12/08/17 12/09/17 15:00 23:00 07:00 Intake Total 486.6 ml Balance 486.6 ml IV Total 486.6 ml . Laboratory Tests Test 12/07/17 05:00 12/08/17 03:30 White Blood Count 8.2 TH/MM3 10.3 TH/MM3 Red Blood Count 3.38 MIL/MM3 3.55 MIL/MM3 Hemoglobin 9.4 GM/DL 9.9 GM/DL Hematocrit 27.7 % 29.1 % Mean Corpuscular Volume 81.9 FL 81.9 FL Mean Corpuscular Hemoglobin 27.9 PG 27.8 PG Mean Corpuscular Hemoglobin Concent 34.0 % 34.0 % Red Cell Distribution Width 12.6 % 12.5 % Platelet Count 96 TH/MM3 125 TH/MM3 Mean Platelet Volume 10.2 FL 10.8 FL Neutrophils (%) (Auto) 79.4 % 79.3 % Lymphocytes (%) (Auto) 12.2 % 13.2 % Monocytes (%) (Auto) 7.5 % 6.8 % Eosinophils (%) (Auto) 0.3 % 0.3 % Basophils (%) (Auto) 0.6 % 0.4 % Neutrophils # (Auto) 6.5 TH/MM3 8.2 TH/MM3 Lymphocytes # (Auto) 1.0 TH/MM3 1.4 TH/MM3 Monocytes # (Auto) 0.6 TH/MM3 0.7 TH/MM3 Eosinophils # (Auto) 0.0 TH/MM3 0.0 TH/MM3 Basophils # (Auto) 0.1 TH/MM3 0.0 TH/MM3 CBC Comment AUTO DIFF AUTO DIFF Differential Comment AUTO DIFF CONFIRMED AUTO DIFF CONFIRMED Platelet Estimate LOW Platelet Morphology Comment NORMAL Laboratory Tests Test 12/07/17 13:50 12/08/17 03:30 Blood Urea Nitrogen 54 MG/DL 54 MG/DL Creatinine 1.84 MG/DL 1.61 MG/DL Random Glucose 124 MG/DL 121 MG/DL Total Protein 5.6 GM/DL 5.5 GM/DL Albumin 2.6 GM/DL 2.4 GM/DL Calcium Level 8.3 MG/DL 8.0 MG/DL Alkaline Phosphatase 91 U/L 121 U/L Aspartate Amino Transf (AST/SGOT) 170 U/L 180 U/L Alanine Aminotransferase (ALT/SGPT) 339 U/L 341 U/L Total Bilirubin 0.4 MG/DL 0.3 MG/DL Sodium Level 144 MEQ/L 146 MEQ/L Potassium Level 3.8 MEQ/L 3.5 MEQ/L Chloride Level 108 MEQ/L 111 MEQ/L Carbon Dioxide Level 24.9 MEQ/L 23.8 MEQ/L Anion Gap 11 MEQ/L 11 MEQ/L Estimat Glomerular Filtration Rate 27 ML/MIN 31 ML/MIN Magnesium Level 2.6 MG/DL Microbiology Date/Time Source Procedure Growth Status 12/06/17 06:30 Urine Catheterized Urine Urine Culture - Final NO GROWTH IN 48 HOURS. Complete Imaging Last Impressions Chest CT 12/04/17 1154 Signed Impressions: Service Date/Time: Monday, December 04, 2017 12:43 - CONCLUSION: Probable mild congestive failure with trace pleural effusions. No evidence for mass. Jean-Paul Hoffmann MD FACR Head CT 12/04/17 1126 Signed Impressions: Service Date/Time: Monday, December 04, 2017 12:37 - CONCLUSION: Stable brain appearance. No acute intracranial findings Anam Rojas MD Chest X-Ray 12/04/17 1126 Signed Impressions: Service Date/Time: Monday, December 04, 2017 11:27 - CONCLUSION: 1. Large central right hilar mass with volume loss. Contrasted CT chest recommended. Gideon Lin MD Neck Magnetic Resonance Angiography 12/04/17 0000 Signed Impressions: Service Date/Time: Monday, December 04, 2017 20:36 - CONCLUSION: 1. Mild plaque at the right carotid bulb/proximal internal carotid artery without significant stenosis. 2. Significant opacification of the aortic arch and origins of the great vessels is not present. These areas cannot be evaluated. Anam Donis MD Head Magnetic Resonance Angiography 12/04/17 0000 Signed Impressions: Service Date/Time: Monday, December 04, 2017 20:36 - CONCLUSION: No acute disease. Anam Donis MD Brain MRI 12/04/17 0000 Signed Impressions: Service Date/Time: Monday, December 04, 2017 20:36 - CONCLUSION: 1. Small punctate areas of signal abnormality in the posterior left temporal lobe which may represent small focal areas of acute infarction. 2. Several areas of signal abnormality in the basal ganglia and left posterior temporal lobes likely from prior hemorrhage. 3. Demyelination within the cerebral and pontine white matter likely from small vessel ischemic change. Anam Donis MD Physical Exam GENERAL: Sedated on the vent SKIN: No rashes,lesions. Cool and dry. HEAD: Atraumatic. Normocephalic. No temporal or scalp tenderness. EYES: Pupils equal round and reactive. No scleral icterus. No injection or drainage. ENT: Intubated. NECK: Trachea midline. Supple, nontender. CARDIOVASCULAR: Heart sounds audible. No murmur appreciated. RESPIRATORY: Clear to auscultation. Breath sounds equal bilaterally. GASTROINTESTINAL: Abdomen soft, non-tender, nondistended. MUSCULOSKELETAL: Extremities without clubbing, cyanosis, or edema. NEUROLOGICAL: Sedated on vent. Psych could not be assessed IV line sites with no evidence of infection. Assessment & Plan Remarks Sepsis present on admission No evidence on [employer] infection on LP Acute metabolic encephalopathy: Sepsis, ? new stroke. ?SZ Possible aspiration Prior history of TIA Prior history of smoking. Global hypokinesis with EF of 20-25% likely sepsis induced. Acute renal failure Recommendations: DC ceftriaxone IV. Treated for aspiration pneumonitis. Follow C/S Neurology concerned this is stroke and possibly seizures. Monitor temps Monitor clinical progress Will sign off please call back if any change in clinical condition or questions. Augusta Amaro MD Dec 08, 2017 13:57
[2017-12-08] MEDS: HEPARIN-D5W 25,000 U/250 ML 250 ML IV PRN (16:34)
[2017-12-08] MEDS: THIAMINE INJ 100 MG in SODIUM CHLORIDE 0.9% INJ 100 ML IV SCH (17:15)
[2017-12-09] VITALS (28 sets, daily range): BP systolic 100–163; BP diastolic 42–108; PULSE 72–136; RESP 16–38; TEMP 97.9–100.1; O2SAT 99–100
[2017-12-09] MEDS: INSULIN NovoLIN REGULAR SUPPLEMENTAL SCALE SQ SCH ×5 (02:00→22:00)
[2017-12-09 02:48] LABS: AUTOMATED NEUTROPHIL # 8.1 TH/MM3 (1.8-7.7); BASOPHIL % 0.5 % (0.0-2.0); EOSINOPHIL # 0.2 TH/MM3 (0-0.4); EOSINOPHIL % 1.6 % (0.0-4.0); HEMATOCRIT 28.8 % (35.0-46.0); HEMOGLOBIN 9.6 GM/DL (11.6-15.3); LYMPH % 8.6 % (9.0-44.0); LYMPHOCYTE # 0.8 TH/MM3 (1.0-4.8); MEAN CELL VOLUME 82.9 FL (80.0-100.0); MEAN CORPUSCULAR HEMOGLOBIN 27.6 PG (27.0-34.0); MEAN CORPUSCULAR HGB CONC 33.3 % (32.0-36.0); MEAN PLATELET VOLUME 9.5 FL (7.0-11.0); MONO % 7.2 % (0.0-8.0); MONOCYTE # 0.7 TH/MM3 (0-0.9); NEUT % 82.1 % (16.0-70.0); PLATELET COUNT 144 TH/MM3 (150-450); RED BLOOD COUNT 3.48 MIL/MM3 (4.00-5.30); RED CELL DISTRIBUTION WIDTH 12.6 % (11.6-17.2); WHITE BLOOD COUNT 9.8 TH/MM3 (4.0-11.0)
[2017-12-09 03:07] LABS: ALBUMIN 2.3 GM/DL (3.4-5.0); ALT (GPT) 275 U/L (10-53); AST (GOT) 99 U/L (15-37); BICARBONATE 28.6 MEQ/L (21.0-32.0); BLOOD UREA NITROGEN 53 MG/DL (7-18); CALCIUM 8.4 MG/DL (8.5-10.1); CHLORIDE 111 MEQ/L (98-107); CREATININE 1.38 MG/DL (0.50-1.00); GLOMERULAR FILTRATION RATE 37 ML/MIN (>89); GLUCOSE,RANDOM 119 MG/DL (74-106); MAGNESIUM 2.4 MG/DL (1.5-2.5); PHOSPHORUS 3.8 MG/DL (2.5-4.9); SODIUM (NA) 147 MEQ/L (136-145)
[2017-12-09 03:08] LABS: ALKALINE PHOSPHATASE 121 U/L (45-117); TOTAL BILIRUBIN ADULT 0.3 MG/DL (0.2-1.0); TOTAL PROTEIN 5.3 GM/DL (6.4-8.2)
[2017-12-09] MEDS: CHLORHEXIDINE GLUCONATE 2 % 1 PACK (2 CLOTHS) TOP SCH (04:00)
[2017-12-09] MEDS: RESP: ALBUTEROL 2.5 MG/IPRATROPIUM 0.5 MG NEB (SCH) INH ×4 (04:27→20:24)
[2017-12-09] MEDS: AMIODARONE INJ 450 MG in SODIUM CHLOR 0.9% (EXCEL) INJ 241 ML IV SCH ×2 (04:53→21:05)
[2017-12-09] MEDS: PROPOFOL 1000 MG/100 ML INJ 100 ML IV PRN ×2 (07:47→17:59)
[2017-12-09] MEDS ORDERED: POTASSIUM CHLORIDE 25 MEQ EFFERVESCENT TAB PO PRN (08:00)
[2017-12-09] MEDS ORDERED: SODIUM PHOSPHATE INJ 30 MMOL in SODIUM CHLOR 0.9% 250 ML INJ 240 ML IV PRN (08:00)
[2017-12-09] MEDS ORDERED: MAGNESIUM SULFATE INJ 4 GM in SODIUM CHLORIDE 0.9% INJ 92 ML IV PRN (08:00)
[2017-12-09] MEDS ORDERED: POTASSIUM PHOSPHATE INJ 30 MMOL in SODIUM CHLOR 0.9% 250 ML INJ 250 ML IV PRN (08:00)
[2017-12-09] MEDS ORDERED: POTASSIUM CHLOR 40 MEQ PREMIX 100 ML IV PRN ×2 (08:00)
[2017-12-09] MEDS ORDERED: POTASSIUM PHOSPHATE MONOBASIC 500 MG TAB PO PRN (08:00)
[2017-12-09] MEDS ORDERED: MAGNESIUM SULFATE INJ 2 GM in SODIUM CHLORIDE 0.9% INJ 96 ML IV PRN (08:00)
[2017-12-09] MEDS ORDERED: POTASSIUM PHOSPHATE MONOBASIC 500 MG TAB PO/TUBE PRN (08:00)
[2017-12-09] MEDS ORDERED: MAGNESIUM OXIDE 400 MG TAB PO PRN (08:00)
[2017-12-09] MEDS: SODIUM CHLORIDE 0.9% FLUSH 10 ML FLUSH IVF PRN (08:01)
[2017-12-09] MEDS: CHLORHEXIDINE 0.12% (ORAL KIT) 15 ML CUP MT SCH ×2 (08:01→21:05)
[2017-12-09] MEDS: SODIUM CHLORIDE FLUSH BID IV FLUSH SCH ×2 (08:01→21:00)
[2017-12-09] MEDS: METOPROLOL TARTRATE 25 MG TAB PO SCH ×3 (08:02→21:05)
[2017-12-09] MEDS: FAMOTIDINE 20 MG TAB PO SCH ×2 (08:02→21:06)
[2017-12-09] MEDS: DOCUSATE SODIUM 50 MG/SENNA 8.6 MG TAB PO SCH ×2 (08:02→21:00)
[2017-12-09] MEDS: ASPIRIN 81 MG CHEW TAB NG SCH (08:02)
[2017-12-09] MEDS: FUROSEMIDE 40 MG/4 ML VIAL IV PUSH SCH ×2 (08:09→17:09)
[2017-12-09] MEDS: POTASSIUM CHLOR 20 MEQ PREMIX 100 ML IV PRN ×2 (08:09→10:23)
--- NOTE | 2017-12-09 08:46 | HHI.PR ---
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 wiggles toes on request difficult to ascertain motor asymmetry continue certified peer specialist care 12/09 more responsive follows all simple commands, moves 4 limbs on request points to mouth, discomfort from tube icu care and monitor neuro, repeat mri brain when extubated Subjective Subjective Comments No acute events reported No headache Active Medications Current Medications Medications (Trade) Dose Ordered Sig/April Route Start Time Stop Time Status Last Admin (Duoneb Neb) 1 ampule Q2HR NEB PRN INH 12/04/17 14:00 Miscellaneous Information 1 Q361D XX 12/04/17 14:00 (Chlorhexidine 2% Cloth) 3 pack Taper DAILY@04 TOP 12/05/17 04:00 12/01/18 03:59 12/09/17 04:00 (Chlorhexidine 2% Cloth) 3 pack UNSCH PRN TOP 12/04/17 14:00 (Mera-Colace) 1 tab BID PO 12/04/17 21:00 12/09/17 08:02 (Milk Of Magnesia Liq) 30 ml Q12H PRN PO 12/04/17 14:00 (Senokot) 17.2 mg Q12H PRN PO 12/04/17 14:00 (Dulcolax Supp) 10 mg DAILY PRN RECTAL 12/04/17 14:00 (Lactulose Liq) 30 ml DAILY PRN PO 12/04/17 14:00 (D50w (Vial) Inj) 50 ml UNSCH PRN IV PUSH 12/04/17 14:00 (Glucagon Inj) 1 mg UNSCH PRN OTHER 12/04/17 14:00 (NovoLIN R SUPPLEMENTAL SCALE) 1 Q4H SQ 12/04/17 14:00 12/07/17 09:09 (Lopressor) 25 mg Q12HR PO 12/04/17 21:00 12/09/17 08:02 Thiamine HCl 100 mg/Sodium Chloride 101 ml @ 101 mls/hr DAILY@1800 IV 12/04/17 18:00 12/08/17 17:15 (Peridex 0.12% Liq) 15 ml BID@08,20 MT 12/04/17 20:00 12/09/17 08:01 Propofol 100 ml @ 2.04 mls/hr TITRATE PRN IV 12/04/17 17:30 12/09/17 07:47 (NS Flush) 2 ml UNSCH PRN IVF 12/05/17 04:15 12/09/17 08:01 (NS Flush) 2 ml BID IV FLUSH 12/05/17 09:00 12/09/17 08:01 Amiodarone HCl 450 mg/Sodium Chloride 250 ml @ 17 mls/hr [id number] IV 12/05/17 04:30 12/09/17 04:53 Heparin Sodium/ Dextrose 250 ml @ 7.72 mls/hr TITRATE PRN IV 12/05/17 07:00 12/08/17 16:34 (Pepcid) 10 mg Q12HR PO 12/06/17 09:00 12/09/17 08:02 (Aspirin Chew) 81 mg DAILY NG 12/07/17 09:00 12/09/17 08:02 (Duoneb Neb) 1 ampule Q6HR NEB INH 12/07/17 16:00 12/09/17 04:27 Potassium Chloride 100 ml @ 50 mls/hr Q2H PRN IV 12/09/17 08:00 Potassium Chloride 100 ml @ 50 mls/hr Q2H PRN IV 12/09/17 08:00 (K-Lyte Cl Eff) 50 meq UNSCH PRN PO 12/09/17 08:00 Potassium Chloride 100 ml @ 25 mls/hr UNSCH PRN IV 12/09/17 08:00 Potassium Chloride 100 ml @ 50 mls/hr Q2H PRN IV 12/09/17 08:00 12/09/17 08:09 Magnesium Sulfate 4 gm/Sodium Chloride 100 ml @ 50 mls/hr UNSCH PRN IV 12/09/17 08:00 (Mag-Ox) 800 mg UNSCH PRN PO 12/09/17 08:00 Magnesium Sulfate 2 gm/Sodium Chloride 100 ml @ 50 mls/hr UNSCH PRN IV 12/09/17 08:00 (K-Phos) 2,000 mg Q4H PRN PO 12/09/17 08:00 Sodium Phosphate 30 mmol/Sodium Chloride 250 ml @ 42 mls/hr UNSCH PRN IV 12/09/17 08:00 (K-Phos) 2,000 mg UNSCH PRN PO/TUBE 12/09/17 08:00 Potassium Phosphate 30 mmol/ Sodium Chloride 260 ml @ 42 mls/hr UNSCH PRN IV 12/09/17 08:00 (Lasix Inj) 40 mg BID@09,18 IV PUSH 12/09/17 09:00 12/09/17 08:09 Allergies Allergies Coded Allergies doxycycline (Unverified Allergy, Severe, 12/04/17) minocycline (Unverified Allergy, Severe, 12/04/17) tigecycline (Unverified Allergy, Severe, 12/04/17) Exam I&O / VS Vital Signs Date Time Temp Pulse Resp B/P (MAP) Pulse Ox O2 Delivery O2 Flow Rate FiO2 12/09/17 06:00 125 12/09/17 04:53 112 105/50 12/09/17 04:28 100 40 12/09/17 04:00 40 12/09/17 04:00 116 12/09/17 04:00 98.0 116 16 116/60 (78) 100 119/54 (75) 12/09/17 03:00 122 18 140/62 (88) 100 133/56 (81) 12/09/17 02:00 123 16 145/67 (93) 100 140/62 (88) 12/09/17 02:00 123 12/09/17 01:00 123 21 138/72 (94) 99 136/61 (86) 12/09/17 00:49 100 40 12/09/17 00:00 40 12/09/17 00:00 122 12/09/17 00:00 98.6 122 21 129/59 (82) 100 100/91 (94) 12/08/17 23:00 120 20 146/68 (94) 99 119/79 (92) 12/08/17 22:00 69 21 146/68 (94) 100 118/94 (102) 12/08/17 22:00 69 12/08/17 21:56 100 40 12/08/17 21:53 67 18 115/58 (77) 100 105/37 (59) 12/08/17 21:00 81 27 156/73 (100) 100 162/54 (90) 12/08/17 20:00 78 12/08/17 20:00 40 12/08/17 20:00 99.0 80 29 153/67 (95) 99 153/54 (87) 12/08/17 19:00 75 19 135/63 (87) 100 150/46 (80) 12/08/17 18:00 77 20 129/59 (82) 99 119/48 (71) 12/08/17 18:00 77 12/08/17 17:00 79 30 154/70 (98) 100 162/58 (92) 12/08/17 16:33 77 149/51 12/08/17 16:00 40 12/08/17 16:00 99.1 77 26 143/67 (92) 100 160/58 (92) 12/08/17 16:00 77 12/08/17 15:34 99 40 12/08/17 15:00 79 22 146/70 (95) 100 157/62 (93) 12/08/17 14:00 80 12/08/17 14:00 80 31 155/70 (98) 99 162/61 (94) 12/08/17 13:00 74 20 134/63 (86) 100 118/60 (79) 12/08/17 12:00 99.0 76 22 143/67 (92) 100 142/60 (87) 12/08/17 12:00 40 12/08/17 12:00 76 12/08/17 11:32 100 40 12/08/17 11:00 75 25 144/66 (92) 100 143/52 (82) 12/08/17 10:10 40 12/08/17 10:00 77 12/08/17 10:00 77 37 154/72 (99) 99 118/89 (99) 12/08/17 09:00 74 18 159/70 (99) 100 133/74 (93) Objective Micro and Labs Laboratory Tests Test 12/08/17 10:53 12/08/17 17:30 12/09/17 02:30 Activated Partial Thromboplast Time 32.7 34.9 38.4 White Blood Count 9.8 Red Blood Count 3.48 Hemoglobin 9.6 Hematocrit 28.8 Mean Corpuscular Volume 82.9 Mean Corpuscular Hemoglobin 27.6 Mean Corpuscular Hemoglobin Concent 33.3 Red Cell Distribution Width 12.6 Platelet Count 144 Mean Platelet Volume 9.5 Neutrophils (%) (Auto) 82.1 Lymphocytes (%) (Auto) 8.6 Monocytes (%) (Auto) 7.2 Eosinophils (%) (Auto) 1.6 Basophils (%) (Auto) 0.5 Neutrophils # (Auto) 8.1 Lymphocytes # (Auto) 0.8 Monocytes # (Auto) 0.7 Eosinophils # (Auto) 0.2 Basophils # (Auto) 0.0 CBC Comment DIFF FINAL Differential Comment Blood Urea Nitrogen 53 Creatinine 1.38 Random Glucose 119 Total Protein 5.3 Albumin 2.3 Calcium Level 8.4 Phosphorus Level 3.8 Magnesium Level 2.4 Alkaline Phosphatase 121 Aspartate Amino Transf (AST/SGOT) 99 Alanine Aminotransferase (ALT/SGPT) 275 Total Bilirubin 0.3 Sodium Level 147 Potassium Level 3.4 Chloride Level 111 Carbon Dioxide Level 28.6 Anion Gap 7 Estimat Glomerular Filtration Rate 37 Date/Time Source Procedure Growth Status 12/04/17 11:38 Blood Peripheral Aerobic Blood Culture - Preliminary NO GROWTH IN 4 DAYS Resulted 12/04/17 11:38 Blood Peripheral Anaerobic Blood Culture - Preliminary NO GROWTH IN 4 DAYS Resulted 12/04/17 14:50 Cerebral Spinal Fluid Lumbar Puncture Fungal Smear Pending Received 12/04/17 14:50 Cerebral Spinal Fluid Lumbar Puncture Fungal Culture Pending Received 12/04/17 18:00 Sputum Endotracheal Gram Stain - Final Complete 12/04/17 18:00 Sputum Endotracheal Sputum Culture - Final HEAVY GROWTH NORMAL RESPIRATORY GURMEET Complete 12/06/17 06:30 Urine Catheterized Urine Urine Culture - Final NO GROWTH IN 48 HOURS. Complete Sae Hayward MD Dec 09, 2017 08:46
--- NOTE | 2017-12-09 09:21 | HHI.CCPN ---
Subjective Remarks/Hospital Course 77-year-old female who is apparently very active at baseline, with past medical history significant for hypertension and previous TIA, tobacco abuse. She was seen last normal yesterday night at 7 PM. Her friends checked on her today morning and was found down, disoriented, staring off to the left, not answering questions. I am not able to get much further history from her. She has a fever of 101 in the ER, initially and then spiked to 103.7. ER workup included a CT scan of head which was negative for acute findings. Lab work showed a white count of 15.9 with left shift, lactic acid was 3.4, troponin was elevated at 8.7. Cardiology Dr. Meza was contacted aspirin was given patient was recommended to be started on IV heparin but was held for LP. Lumbar puncture was unremarkable nevertheless patient was started on meningitic doses of vancomycin and Rocephin. I have added ampicillin 2 g IV every 4 hours, and acyclovir 680 mg IV every 8 hours. I evaluated the patient in the ICU. Patient is severely altered tachypneic in moderate distress. Patient is aphasic with left gaze preference diminished movements of the right upper and lower extremity. A bedside echo shows reduced EF approximately 20-25%, global hypokinesis. Patient has no history of cardiomyopathy to my knowledge. At this time his stroke cannot be ruled out. Stat MRI MRA had been ordered. Due to altered mentation tachypnea and lack of airway protection patient was intubated and placed on mechanical ventilation SUBJECTIVE: 12/05: Remains intubated sedated. MRI brain showing small punctate areas of signal abnormality in the posterior left temporal lobe-possible small focal areas of acute infarction. Also several areas of signal abnormality in the basal ganglia and left posterior temporal lobes likely from prior hemorrhage. Demyelination within the cerebral and pontine white matter likely from small vessel ischemic change. Neurology consult. Stat EEG is pending. Fever is down trending afebrile now, developed atrial fibrillation with RVR started on amiodarone infusion. I have resumed heparin infusion. 12/06: Afebrile. Last evening the patient had decreased mat requiring additional pressor support vasopressin added to medication regimen and diminished urinary output. Patient was noted to have significant elevation in creatinine this a.m. Patient remains on vasopressin and norepinephrine vasopressor support. Patient continues on amiodarone infusion, plan to transition to p.o.. Sedation vacation initiated yesterday for EEG, per report patient following commands. Sedation vacation in progress at this time. Noticed slight elevation in WBC count, repeat urine culture pending. 12/07: Remains intubated sedated. Currently on IV heparin infusion, amiodarone infusion and vasopressin gtt to maintain MAP >65. Had developed acute kidney injury yesterday creatinine had bumped to 2. Urine output 550 mL in the last 24 hours. CMP today is pending. On sedation hold patient opens eyes weakly moves extremities do not follow commands. Remains severely encephalopathy 12/08: No events over the night. Patient remains encephalopathic, opens eyes to voice stimuli, but does not consistently follow commands. She remains on amiodarone and heparin infusions, no pressors. T-max of 99.6. I/O 2250/960, more than 11 L positive since admission if correctly documented. 12/09: Few episodes of A. fib with RVR over the night. T-max of 99.1. Patient remains intubated and sedated. No family present at bedside. ROS -unobtainable, since patient is intubated. Objective Vital Signs Date Time Temp Pulse Resp B/P (MAP) Pulse Ox O2 Delivery O2 Flow Rate FiO2 12/09/17 08:44 30 12/09/17 08:44 100 12/09/17 06:00 125 12/09/17 04:53 105/50 12/09/17 04:00 98.0 16 12/08/17 08:03 Ventilator Intake and Output 12/09/17 12/09/17 12/10/17 08:00 16:00 00:00 Intake Total 1152 ml Output Total 550 ml Balance 602 ml Result Diagram: 12/09/17 0230 12/09/17 0230 Imaging Last 24 hours Impressions Chest X-Ray 12/08/17 0600 Signed Impressions: Service Date/Time: Friday, December 08, 2017 03:05 - CONCLUSION: 1. Endotracheal tube and nasogastric tube in satisfactory position. Mild basilar airspace disease persists. Shay Rausch MD Last Impressions Chest X-Ray 12/05/17 0000 Signed Impressions: Service Date/Time: Tuesday, December 05, 2017 13:23 - CONCLUSION: 1. Interval placement of a right subclavian central venous catheter with the tip projecting over the central venous system. No pneumothorax 2. Lungs remain hyperinflated with probable bibasilar atelectasis. 3. Compensated cardiomegaly. Mahendra Poe MD Chest CT 12/04/17 1154 Signed Impressions: Service Date/Time: Monday, December 04, 2017 12:43 - CONCLUSION: Probable mild congestive failure with trace pleural effusions. No evidence for mass. Jean-Paul Hoffmann MD FACR Head CT 12/04/17 1126 Signed Impressions: Service Date/Time: Monday, December 04, 2017 12:37 - CONCLUSION: Stable brain appearance. No acute intracranial findings Anam Rojas MD Neck Magnetic Resonance Angiography 12/04/17 0000 Signed Impressions: Service Date/Time: Monday, December 04, 2017 20:36 - CONCLUSION: 1. Mild plaque at the right carotid bulb/proximal internal carotid artery without significant stenosis. 2. Significant opacification of the aortic arch and origins of the great vessels is not present. These areas cannot be evaluated. Anam Donis MD Head Magnetic Resonance Angiography 12/04/17 0000 Signed Impressions: Service Date/Time: Monday, December 04, 2017 20:36 - CONCLUSION: No acute disease. Anam Donis MD Brain MRI 12/04/17 0000 Signed Impressions: Service Date/Time: Monday, December 04, 2017 20:36 - CONCLUSION: 1. Small punctate areas of signal abnormality in the posterior left temporal lobe which may represent small focal areas of acute infarction. 2. Several areas of signal abnormality in the basal ganglia and left posterior temporal lobes likely from prior hemorrhage. 3. Demyelination within the cerebral and pontine white matter likely from small vessel ischemic change. Anam Donis MD Objective Remarks General - elderly lady, intubated and sedated, ill-appearing HEENT - pupils equal, reactive, sclerae anicteric, neck supple, no rigidity, neck veins distended, no carotid bruit, orally intubated CV - irregular S1, S2, no murmurs Chest - coarse breath sounds b/l, good air entry, no wheezes Abdomen - soft, non-tender, non-distended, BS present, no hepatomegaly, no splenomegaly Skin - no rashes, no cyanosis Extremities - warm and well perfused, 1+ edema over both upper and lower extremities, + peripheral pulses, no clubbing Neuro -intubated, sedated, opens eyes to voice stimuli and follows some commands but patient remains very weak A/P Problem List: (1) Acute metabolic encephalopathy ICD Code: G93.41 - Metabolic encephalopathy Status: Acute (2) Paroxysmal atrial fibrillation with rapid ventricular response ICD Code: I48.0 - Paroxysmal atrial fibrillation Status: Acute (3) Lactic acidemia ICD Code: E87.2 - Acidosis Status: Acute (4) Cardiomyopathy ICD Code: I42.9 - Cardiomyopathy, unspecified Status: Chronic (5) Non-ST elevation NM (NSTEMI) ICD Code: I21.4 - Non-ST elevation (NSTEMI) myocardial infarction Status: Acute (6) Severe sepsis ICD Code: A41.9 - Sepsis, unspecified organism; R65.20 - Severe sepsis without septic shock Status: Acute (7) Altered mental status ICD Code: R41.82 - Altered mental status, unspecified Status: Acute (8) Hypertension ICD Code: I10 - Hypertension Status: Chronic (9) LAI (acute kidney injury) ICD Code: N17.9 - Acute kidney failure, unspecified Status: Acute (10) Metabolic acidosis ICD Code: E87.2 - Acidosis Status: Acute Assessment and Plan 1. Acute encephalopathy 2. Ischemic Left MCA stroke 3. Acute respiratory failure from lack of airway protection, on minimal O2 requirement 4. NSTEMI 5. Cardiomyopathy, with reduced EF, possible viral myocarditis 6. Atrial fibrillation with RVR -heart rate better controlled 7. Circulatory shock -patient remains off pressors 8. LAI -creatinine trending down 9. Severe metabolic acidosis - resolved 10. Volume overload -positive more than 11 L since admission 11. Elevated liver enzymes -gradually trending down 1. Continue PRVC at current vent settings. PIP of 21, FiO2 of 0.4, patient is synchronized with the vent, no auto PEEP 2. Vent bundle and bronchodilators 3. Decrease sedation and we will attempt CPAP trial again today. Yesterday patient did not tolerate it 4. Continue amiodarone drip and heparin drip. Further management per cardiology 5. Start beta-bishnu when BP allows 6. Continue diuresis with Lasix 7. Replete potassium. Electrolyte protocol ordered 8. Off antibiotics per ID 9. Central line right subclavian (12/05) and left radial art line 10. GI and DVT prophylaxis addressed 11. On tube feeds No family present at bedside. Level 3 follow-up Problem Qualifiers (1) Altered mental status: (2) Hypertension: Qualified Codes: I10 - Essential (primary) hypertension Kiel Hernandez MD Dec 09, 2017 09:21
[2017-12-09] MEDS ORDERED: DIGOXIN 0.5 MG/2 ML VIAL ONE (10:21)
[2017-12-09] MEDS ORDERED: DIGOXIN 0.5 MG/2 ML VIAL IV PUSH ONE (10:45)
--- NOTE | 2017-12-09 11:14 | PD.CARD.PN ---
Subjective Subjective Remarks on vent, off pressors Objective Medications Current Medications Medications (Trade) Dose Ordered Sig/April Route Start Time Stop Time Status Last Admin (Duoneb Neb) 1 ampule Q2HR NEB PRN INH 12/04/17 14:00 Miscellaneous Information 1 Q361D XX 12/04/17 14:00 (Chlorhexidine 2% Cloth) 3 pack Taper DAILY@04 TOP 12/05/17 04:00 12/01/18 03:59 12/09/17 04:00 (Chlorhexidine 2% Cloth) 3 pack UNSCH PRN TOP 12/04/17 14:00 (Mera-Colace) 1 tab BID PO 12/04/17 21:00 12/09/17 08:02 (Milk Of Magnesia Liq) 30 ml Q12H PRN PO 12/04/17 14:00 (Senokot) 17.2 mg Q12H PRN PO 12/04/17 14:00 (Dulcolax Supp) 10 mg DAILY PRN RECTAL 12/04/17 14:00 (Lactulose Liq) 30 ml DAILY PRN PO 12/04/17 14:00 (D50w (Vial) Inj) 50 ml UNSCH PRN IV PUSH 12/04/17 14:00 (Glucagon Inj) 1 mg UNSCH PRN OTHER 12/04/17 14:00 (Lopressor) 25 mg Q12HR PO 12/04/17 21:00 12/09/17 08:02 Thiamine HCl 100 mg/Sodium Chloride 101 ml @ 101 mls/hr DAILY@1800 IV 12/04/17 18:00 12/08/17 17:15 (Peridex 0.12% Liq) 15 ml BID@08,20 MT 12/04/17 20:00 12/09/17 08:01 Propofol 100 ml @ 2.04 mls/hr TITRATE PRN IV 12/04/17 17:30 12/09/17 07:47 (NS Flush) 2 ml UNSCH PRN IVF 12/05/17 04:15 12/09/17 08:01 (NS Flush) 2 ml BID IV FLUSH 12/05/17 09:00 12/09/17 08:01 Amiodarone HCl 450 mg/Sodium Chloride 250 ml @ 17 mls/hr [id number] IV 12/05/17 04:30 12/09/17 04:53 Heparin Sodium/ Dextrose 250 ml @ 7.72 mls/hr TITRATE PRN IV 12/05/17 07:00 12/08/17 16:34 (Pepcid) 10 mg Q12HR PO 12/06/17 09:00 12/09/17 08:02 (Aspirin Chew) 81 mg DAILY NG 12/07/17 09:00 12/09/17 08:02 (Duoneb Neb) 1 ampule Q6HR NEB INH 12/07/17 16:00 12/09/17 04:27 Potassium Chloride 100 ml @ 50 mls/hr Q2H PRN IV 12/09/17 08:00 Potassium Chloride 100 ml @ 50 mls/hr Q2H PRN IV 12/09/17 08:00 (K-Lyte Cl Eff) 50 meq UNSCH PRN PO 12/09/17 08:00 Potassium Chloride 100 ml @ 25 mls/hr UNSCH PRN IV 12/09/17 08:00 Potassium Chloride 100 ml @ 50 mls/hr Q2H PRN IV 12/09/17 08:00 12/09/17 10:23 Magnesium Sulfate 4 gm/Sodium Chloride 100 ml @ 50 mls/hr UNSCH PRN IV 12/09/17 08:00 (Mag-Ox) 800 mg UNSCH PRN PO 12/09/17 08:00 Magnesium Sulfate 2 gm/Sodium Chloride 100 ml @ 50 mls/hr UNSCH PRN IV 12/09/17 08:00 (K-Phos) 2,000 mg Q4H PRN PO 12/09/17 08:00 Sodium Phosphate 30 mmol/Sodium Chloride 250 ml @ 42 mls/hr UNSCH PRN IV 12/09/17 08:00 (K-Phos) 2,000 mg UNSCH PRN PO/TUBE 12/09/17 08:00 Potassium Phosphate 30 mmol/ Sodium Chloride 260 ml @ 42 mls/hr UNSCH PRN IV 12/09/17 08:00 (Lasix Inj) 40 mg BID@09,18 IV PUSH 12/09/17 09:00 12/09/17 08:09 (NovoLIN R SUPPLEMENTAL SCALE) 1 Q6H SQ 12/09/17 10:00 Vital Signs / I&O Vital Signs Date Time Temp Pulse Resp B/P (MAP) Pulse Ox O2 Delivery O2 Flow Rate FiO2 12/09/17 10:00 134 12/09/17 09:00 124 38 160/75 (103) 99 136/67 (90) 12/09/17 08:44 30 12/09/17 08:44 100 30 12/09/17 08:40 30 12/09/17 08:00 40 12/09/17 08:00 98.8 121 22 140/63 (88) 100 142/62 (88) 12/09/17 08:00 121 12/09/17 07:00 124 24 138/68 (91) 100 132/58 (82) 12/09/17 06:00 125 12/09/17 04:53 112 105/50 12/09/17 04:28 100 40 12/09/17 04:00 40 12/09/17 04:00 116 12/09/17 04:00 98.0 116 16 116/60 (78) 100 119/54 (75) 12/09/17 03:00 122 18 140/62 (88) 100 133/56 (81) 12/09/17 02:00 123 16 145/67 (93) 100 140/62 (88) 12/09/17 02:00 123 12/09/17 01:00 123 21 138/72 (94) 99 136/61 (86) 12/09/17 00:49 100 40 12/09/17 00:00 40 12/09/17 00:00 122 12/09/17 00:00 98.6 122 21 129/59 (82) 100 100/91 (94) 12/08/17 23:00 120 20 146/68 (94) 99 119/79 (92) 12/08/17 22:00 69 21 146/68 (94) 100 118/94 (102) 12/08/17 22:00 69 12/08/17 21:56 100 40 12/08/17 21:53 67 18 115/58 (77) 100 105/37 (59) 12/08/17 21:00 81 27 156/73 (100) 100 162/54 (90) 12/08/17 20:00 78 12/08/17 20:00 40 12/08/17 20:00 99.0 80 29 153/67 (95) 99 153/54 (87) 12/08/17 19:00 75 19 135/63 (87) 100 150/46 (80) 12/08/17 18:00 77 20 129/59 (82) 99 119/48 (71) 12/08/17 18:00 77 12/08/17 17:00 79 30 154/70 (98) 100 162/58 (92) 12/08/17 16:33 77 149/51 12/08/17 16:00 40 12/08/17 16:00 99.1 77 26 143/67 (92) 100 160/58 (92) 12/08/17 16:00 77 12/08/17 15:34 99 40 12/08/17 15:00 79 22 146/70 (95) 100 157/62 (93) 12/08/17 14:00 80 12/08/17 14:00 80 31 155/70 (98) 99 162/61 (94) 12/08/17 13:00 74 20 134/63 (86) 100 118/60 (79) 12/08/17 12:00 99.0 76 22 143/67 (92) 100 142/60 (87) 12/08/17 12:00 40 12/08/17 12:00 76 12/08/17 11:32 100 40 I/O 12/08/17 12/08/17 12/08/17 12/09/17 12/09/17 12/09/17 07:00 15:00 23:00 07:00 15:00 23:00 Intake Total 241 ml 486.6 ml 1845.6 ml 1152 ml 132 ml Output Total 450 ml 1400 ml 550 ml Balance -209 ml 486.6 ml 445.6 ml 602 ml 132 ml IV Total 241 ml 486.6 ml 354.6 ml 502 ml 132 ml Tube Feeding 1191 ml 450 ml Other 300 ml 200 ml Output Urine Total 450 ml 1400 ml 550 ml # Bowel Movements 1 0 Physical Exam on vent.; Much more alert, following a few commands Neck + JVD Chest + rhonchi CV: In and out of AF RVR, still on IV amio Abd soft Ext: slight edema LFT's and BUN/creat trending down Laboratory Laboratory Tests Test 12/08/17 17:30 12/09/17 02:30 12/09/17 09:15 Activated Partial Thromboplast Time 34.9 SEC 38.4 SEC 33.8 SEC White Blood Count 9.8 TH/MM3 Red Blood Count 3.48 MIL/MM3 Hemoglobin 9.6 GM/DL Hematocrit 28.8 % Mean Corpuscular Volume 82.9 FL Mean Corpuscular Hemoglobin 27.6 PG Mean Corpuscular Hemoglobin Concent 33.3 % Red Cell Distribution Width 12.6 % Platelet Count 144 TH/MM3 Mean Platelet Volume 9.5 FL Neutrophils (%) (Auto) 82.1 % Lymphocytes (%) (Auto) 8.6 % Monocytes (%) (Auto) 7.2 % Eosinophils (%) (Auto) 1.6 % Basophils (%) (Auto) 0.5 % Neutrophils # (Auto) 8.1 TH/MM3 Lymphocytes # (Auto) 0.8 TH/MM3 Monocytes # (Auto) 0.7 TH/MM3 Eosinophils # (Auto) 0.2 TH/MM3 Basophils # (Auto) 0.0 TH/MM3 CBC Comment DIFF FINAL Differential Comment Blood Urea Nitrogen 53 MG/DL Creatinine 1.38 MG/DL Random Glucose 119 MG/DL Total Protein 5.3 GM/DL Albumin 2.3 GM/DL Calcium Level 8.4 MG/DL Phosphorus Level 3.8 MG/DL Magnesium Level 2.4 MG/DL Alkaline Phosphatase 121 U/L Aspartate Amino Transf (AST/SGOT) 99 U/L Alanine Aminotransferase (ALT/SGPT) 275 U/L Total Bilirubin 0.3 MG/DL Sodium Level 147 MEQ/L Potassium Level 3.4 MEQ/L Chloride Level 111 MEQ/L Carbon Dioxide Level 28.6 MEQ/L Anion Gap 7 MEQ/L Estimat Glomerular Filtration Rate 37 ML/MIN Imaging Last 48 hours Impressions Chest X-Ray 12/08/17 0600 Signed Impressions: Service Date/Time: Friday, December 08, 2017 03:05 - CONCLUSION: 1. Endotracheal tube and nasogastric tube in satisfactory position. Mild basilar airspace disease persists. Shay Rausch MD Assessment and Plan Problem List: (1) Paroxysmal atrial fibrillation with rapid ventricular response ICD Codes: I48.0 - Paroxysmal atrial fibrillation Status: Acute Plan: 0.25mg IV dig, cont. amio, increase metoprolol (2) Altered mental status ICD Codes: R41.82 - Altered mental status, unspecified Status: Acute Plan: improvng (3) Severe sepsis ICD Codes: A41.9 - Sepsis, unspecified organism; R65.20 - Severe sepsis without septic shock Status: Acute (4) Non-ST elevation CA (NSTEMI) ICD Codes: I21.4 - Non-ST elevation (NSTEMI) myocardial infarction Status: Acute (5) Cardiomyopathy ICD Codes: I42.9 - Cardiomyopathy, unspecified Status: Chronic (6) CVA (cerebral infarction) ICD Codes: I63.9 - Cerebral infarction Status: Acute (7) Shock liver ICD Codes: K72.00 - Acute and subacute hepatic failure without coma (8) LAI (acute kidney injury) ICD Codes: N17.9 - Acute kidney failure, unspecified Status: Acute Problem Qualifiers (1) Altered mental status: Rich Meza MD Dec 09, 2017 11:14
[2017-12-09] MEDS: HEPARIN-D5W 25,000 U/250 ML 250 ML IV PRN (12:16)
[2017-12-09 15:04] LABS: BICARBONATE 29.1 MEQ/L (21.0-32.0); CALCIUM 8.6 MG/DL (8.5-10.1); CREATININE 1.27 MG/DL (0.50-1.00); MAGNESIUM 2.2 MG/DL (1.5-2.5)
[2017-12-09] MEDS: THIAMINE INJ 100 MG in SODIUM CHLORIDE 0.9% INJ 100 ML IV SCH (17:08)
[2017-12-10] VITALS (18 sets, daily range): BP systolic 75–156; BP diastolic 63–70; PULSE 71–79; RESP 15–30; TEMP 98.2–100.2; O2SAT 99–100
[2017-12-10] MEDS: METOPROLOL TARTRATE 25 MG TAB PO SCH ×4 (02:13→19:50)
[2017-12-10] MEDS: PROPOFOL 1000 MG/100 ML INJ 100 ML IV PRN ×4 (02:54→22:48)
[2017-12-10] MEDS: HEPARIN-D5W 25,000 U/250 ML 250 ML IV PRN ×2 (03:16→19:05)
[2017-12-10] MEDS: CHLORHEXIDINE GLUCONATE 2 % 1 PACK (2 CLOTHS) TOP SCH (04:00)
[2017-12-10] MEDS: INSULIN NovoLIN REGULAR SUPPLEMENTAL SCALE SQ SCH ×4 (04:00→22:00)
[2017-12-10] MEDS: RESP: ALBUTEROL 2.5 MG/IPRATROPIUM 0.5 MG NEB (SCH) INH ×4 (04:12→19:49)
--- NOTE | 2017-12-10 05:24 | RADRPT ---
EXAM DATE/TIME: 12/10/2017 03:55 [facility] COMPARISON: CHEST SINGLE AP, December 08, 2017, 3:05. INDICATIONS : Shortness of breath, possible pulmonary disease. MEDICAL HISTORY : Hypertension. SURGICAL HISTORY : None. ENCOUNTER: Subsequent ACUITY: 1 week PAIN SCORE: Non-responsive. LOCATION: Bilateral chest FINDINGS: A single view of the chest demonstrates right basilar density. Endotracheal tube and nasogastric tube unchanged. Right subclavian central line unchanged. Cardiomegaly. Osseous structures are intact. CONCLUSION: 1. Right basilar density unchanged likely small pleural effusion and associated density. 2. Cardiomegaly. Gideon Lin MD on December 10, 2017 at 5:22 Board Certified Radiologist. This report was verified electronically.
[2017-12-10 05:49] LABS: AUTOMATED NEUTROPHIL # 5.9 TH/MM3 (1.8-7.7); BASOPHIL % 0.5 % (0.0-2.0); EOSINOPHIL # 0.3 TH/MM3 (0-0.4); EOSINOPHIL % 3.5 % (0.0-4.0); HEMATOCRIT 27.5 % (35.0-46.0); HEMOGLOBIN 9.4 GM/DL (11.6-15.3); MEAN CELL VOLUME 82.8 FL (80.0-100.0); MEAN CORPUSCULAR HEMOGLOBIN 28.2 PG (27.0-34.0); MEAN PLATELET VOLUME 9.7 FL (7.0-11.0); MONO % 10.3 % (0.0-8.0); MONOCYTE # 0.8 TH/MM3 (0-0.9); NEUT % 72.7 % (16.0-70.0); PLATELET COUNT 149 TH/MM3 (150-450); RED BLOOD COUNT 3.32 MIL/MM3 (4.00-5.30); RED CELL DISTRIBUTION WIDTH 12.5 % (11.6-17.2); WHITE BLOOD COUNT 8.1 TH/MM3 (4.0-11.0)
[2017-12-10 06:19] LABS: ALBUMIN 2.2 GM/DL (3.4-5.0); AST (GOT) 60 U/L (15-37); BICARBONATE 28.2 MEQ/L (21.0-32.0); BLOOD UREA NITROGEN 50 MG/DL (7-18); CALCIUM 8.6 MG/DL (8.5-10.1); CHLORIDE 109 MEQ/L (98-107); CREATININE 1.21 MG/DL (0.50-1.00); GLOMERULAR FILTRATION RATE 43 ML/MIN (>89); GLUCOSE,RANDOM 110 MG/DL (74-106); SODIUM (NA) 147 MEQ/L (136-145)
[2017-12-10 06:22] LABS: ALKALINE PHOSPHATASE 118 U/L (45-117); ALT (GPT) 201 U/L (10-53); TOTAL BILIRUBIN ADULT 0.4 MG/DL (0.2-1.0); TOTAL PROTEIN 5.3 GM/DL (6.4-8.2)
[2017-12-10] MEDS: FAMOTIDINE 20 MG TAB PO SCH ×2 (08:14→20:00)
[2017-12-10] MEDS: FUROSEMIDE 40 MG/4 ML VIAL IV PUSH SCH ×2 (08:14→17:34)
[2017-12-10] MEDS: SODIUM CHLORIDE FLUSH BID IV FLUSH SCH ×2 (08:14→20:00)
[2017-12-10] MEDS: DOCUSATE SODIUM 50 MG/SENNA 8.6 MG TAB PO SCH ×2 (08:15→20:00)
[2017-12-10] MEDS: ASPIRIN 81 MG CHEW TAB NG SCH (08:16)
[2017-12-10] MEDS: CHLORHEXIDINE 0.12% (ORAL KIT) 15 ML CUP MT SCH ×2 (08:16→19:51)
--- NOTE | 2017-12-10 09:06 | HHI.CCPN ---
Subjective Remarks/Hospital Course 77-year-old female who is apparently very active at baseline, with past medical history significant for hypertension and previous TIA, tobacco abuse. She was seen last normal yesterday night at 7 PM. Her friends checked on her today morning and was found down, disoriented, staring off to the left, not answering questions. I am not able to get much further history from her. She has a fever of 101 in the ER, initially and then spiked to 103.7. ER workup included a CT scan of head which was negative for acute findings. Lab work showed a white count of 15.9 with left shift, lactic acid was 3.4, troponin was elevated at 8.7. Cardiology Dr. Meza was contacted aspirin was given patient was recommended to be started on IV heparin but was held for LP. Lumbar puncture was unremarkable nevertheless patient was started on meningitic doses of vancomycin and Rocephin. I have added ampicillin 2 g IV every 4 hours, and acyclovir 680 mg IV every 8 hours. I evaluated the patient in the ICU. Patient is severely altered tachypneic in moderate distress. Patient is aphasic with left gaze preference diminished movements of the right upper and lower extremity. A bedside echo shows reduced EF approximately 20-25%, global hypokinesis. Patient has no history of cardiomyopathy to my knowledge. At this time his stroke cannot be ruled out. Stat MRI MRA had been ordered. Due to altered mentation tachypnea and lack of airway protection patient was intubated and placed on mechanical ventilation SUBJECTIVE: 12/05: Remains intubated sedated. MRI brain showing small punctate areas of signal abnormality in the posterior left temporal lobe-possible small focal areas of acute infarction. Also several areas of signal abnormality in the basal ganglia and left posterior temporal lobes likely from prior hemorrhage. Demyelination within the cerebral and pontine white matter likely from small vessel ischemic change. Neurology consult. Stat EEG is pending. Fever is down trending afebrile now, developed atrial fibrillation with RVR started on amiodarone infusion. I have resumed heparin infusion. 12/06: Afebrile. Last evening the patient had decreased mat requiring additional pressor support vasopressin added to medication regimen and diminished urinary output. Patient was noted to have significant elevation in creatinine this a.m. Patient remains on vasopressin and norepinephrine vasopressor support. Patient continues on amiodarone infusion, plan to transition to p.o.. Sedation vacation initiated yesterday for EEG, per report patient following commands. Sedation vacation in progress at this time. Noticed slight elevation in WBC count, repeat urine culture pending. 12/07: Remains intubated sedated. Currently on IV heparin infusion, amiodarone infusion and vasopressin gtt to maintain MAP >65. Had developed acute kidney injury yesterday creatinine had bumped to 2. Urine output 550 mL in the last 24 hours. CMP today is pending. On sedation hold patient opens eyes weakly moves extremities do not follow commands. Remains severely encephalopathy 12/08: No events over the night. Patient remains encephalopathic, opens eyes to voice stimuli, but does not consistently follow commands. She remains on amiodarone and heparin infusions, no pressors. T-max of 99.6. I/O 2250/960, more than 11 L positive since admission if correctly documented. 12/09: Few episodes of A. fib with RVR over the night. T-max of 99.1. Patient remains intubated and sedated. No family present at bedside. 12/10: No events over the night. Patient is more awake this a.m. 30 with propofol. Good response to diuresis, T-max 100.1. In telemetry, patient currently in sinus rhythm and she continues to be on amiodarone infusion. ROS -unobtainable, since patient is intubated. Objective Vital Signs Date Time Temp Pulse Resp B/P (MAP) Pulse Ox O2 Delivery O2 Flow Rate FiO2 12/10/17 07:59 99 Ventilator 30 12/10/17 06:00 74 12/10/17 04:00 98.2 15 146/64 (91) 75/70 (72) Intake and Output 12/10/17 12/10/17 12/11/17 08:00 16:00 00:00 Intake Total 1035 ml Output Total 1000 ml Balance 35 ml Result Diagram: 12/10/17 0415 12/10/17 0415 Other Results Laboratory Tests Test 12/10/17 05:13 Blood Gas Puncture Site RT RADIAL Blood Gas Patient Temperature 98.6 Blood Gas HCO3 30 mmol/L (22-26) Blood Gas Base Excess 5.8 mmol/L (-2-2) Blood Gas Oxygen Saturation 97 % (90-100) Arterial Blood pH 7.43 (7.380-7.420) Arterial Blood Partial Pressure CO2 46 mmHg (38-42) Arterial Blood Partial Pressure O2 118 mmHg (61-120) Arterial Blood Oxygen Content 12.4 Vol % (12.0-20.0) Arterial Blood Carboxyhemoglobin 0.9 % (0-4) Arterial Blood Methemoglobin 1.2 % (0-2) Blood Gas Hemoglobin 8.9 G/DL (12.0-16.0) Oxygen Delivery Device VENTILATOR Blood Gas Ventilator Setting PRVC16/500/0.9/+5 Blood Gas Inspired Oxygen 30 % Imaging Last 24 hours Impressions Chest X-Ray 12/10/17 0600 Signed Impressions: Service Date/Time: November 03:55 - CONCLUSION: 1. Right basilar density unchanged likely small pleural effusion and associated density. 2. Cardiomegaly. Gideon Lin MD Last 24 hours Impressions Chest X-Ray 12/08/17 0600 Signed Impressions: Service Date/Time: Friday, December 08, 2017 03:05 - CONCLUSION: 1. Endotracheal tube and nasogastric tube in satisfactory position. Mild basilar airspace disease persists. Shay Rausch MD Last Impressions Chest X-Ray 12/05/17 0000 Signed Impressions: Service Date/Time: Tuesday, December 05, 2017 13:23 - CONCLUSION: 1. Interval placement of a right subclavian central venous catheter with the tip projecting over the central venous system. No pneumothorax 2. Lungs remain hyperinflated with probable bibasilar atelectasis. 3. Compensated cardiomegaly. Mahendra Poe MD Chest CT 12/04/17 1154 Signed Impressions: Service Date/Time: Monday, December 04, 2017 12:43 - CONCLUSION: Probable mild congestive failure with trace pleural effusions. No evidence for mass. Jean-Paul Hoffmann MD FACR Head CT 12/04/17 1126 Signed Impressions: Service Date/Time: Monday, December 04, 2017 12:37 - CONCLUSION: Stable brain appearance. No acute intracranial findings Anam Rojas MD Neck Magnetic Resonance Angiography 12/04/17 0000 Signed Impressions: Service Date/Time: Monday, December 04, 2017 20:36 - CONCLUSION: 1. Mild plaque at the right carotid bulb/proximal internal carotid artery without significant stenosis. 2. Significant opacification of the aortic arch and origins of the great vessels is not present. These areas cannot be evaluated. Anam Donis MD Head Magnetic Resonance Angiography 12/04/17 0000 Signed Impressions: Service Date/Time: Monday, December 04, 2017 20:36 - CONCLUSION: No acute disease. Anam Donis MD Brain MRI 12/04/17 0000 Signed Impressions: Service Date/Time: Monday, December 04, 2017 20:36 - CONCLUSION: 1. Small punctate areas of signal abnormality in the posterior left temporal lobe which may represent small focal areas of acute infarction. 2. Several areas of signal abnormality in the basal ganglia and left posterior temporal lobes likely from prior hemorrhage. 3. Demyelination within the cerebral and pontine white matter likely from small vessel ischemic change. Anam Donis MD Objective Remarks General - elderly lady, intubated, awake, ill-appearing HEENT - pupils are equal, reactive, sclerae are anicteric, neck is supple, no rigidity, positive JVD, no carotid bruit, orally intubated, subclavian line in place -site is clean CV - irregular heart sounds, no murmurs Chest - still with scattered coarse breath sounds b/l, good air entry, no wheezes Abdomen - soft, non-tender, not distended, BS present, no hepatomegaly, no splenomegaly Skin - no rashes, no cyanosis Extremities - warm, 1+ edema over both upper and lower extremities, + peripheral pulses, no clubbing Neuro - intubated, sedated, awake and follows some commands but patient remains very weak, does not move left upper extremity A/P Problem List: (1) Acute metabolic encephalopathy ICD Code: G93.41 - Metabolic encephalopathy Status: Acute (2) Paroxysmal atrial fibrillation with rapid ventricular response ICD Code: I48.0 - Paroxysmal atrial fibrillation Status: Acute (3) Lactic acidemia ICD Code: E87.2 - Acidosis Status: Acute (4) Cardiomyopathy ICD Code: I42.9 - Cardiomyopathy, unspecified Status: Chronic (5) Non-ST elevation CO (NSTEMI) ICD Code: I21.4 - Non-ST elevation (NSTEMI) myocardial infarction Status: Acute (6) Severe sepsis ICD Code: A41.9 - Sepsis, unspecified organism; R65.20 - Severe sepsis without septic shock Status: Acute (7) Altered mental status ICD Code: R41.82 - Altered mental status, unspecified Status: Acute (8) Hypertension ICD Code: I10 - Hypertension Status: Chronic (9) LAI (acute kidney injury) ICD Code: N17.9 - Acute kidney failure, unspecified Status: Acute (10) Metabolic acidosis ICD Code: E87.2 - Acidosis Status: Acute Assessment and Plan 1. Acute encephalopathy 2. Ischemic Left MCA stroke 3. Acute respiratory failure from lack of airway protection, on minimal O2 requirement 4. NSTEMI 5. Cardiomyopathy, with reduced EF, possible viral myocarditis 6. Atrial fibrillation with RVR -heart rate better controlled 7. Circulatory shock -patient remains off pressors 8. LAI -creatinine trending down 9. Severe metabolic acidosis - resolved 10. Volume overload -positive more than 11 L since admission 11. Elevated liver enzymes -slowly trending down 1. Continue PRVC at current vent settings. PIP of 21, FiO2 of 0.4, patient is synchronized with the vent, no auto PEEP 2. Vent bundle and bronchodilators 3. Stop sedation and attempt CPAP again today. Yesterday, patient tolerated for approximately 2 hours but then she developed A. fib with RVR and tachypnea so she was switched back to PRVC 4. Continue amiodarone drip and heparin drip. Further management per cardiology 5. Metoprolol 25 every 6 hours 6. Continue diuresis with Lasix today 7. Off antibiotics per ID 8. Radial art line removed 9. GI and DVT prophylaxis addressed 10. On tube feeds No family present at bedside. Level 3 follow-up Problem Qualifiers (1) Altered mental status: (2) Hypertension: Qualified Codes: I10 - Essential (primary) hypertension Kiel Hernandez MD Dec 10, 2017 09:06
[2017-12-10] MEDS: AMIODARONE INJ 450 MG in SODIUM CHLOR 0.9% (EXCEL) INJ 241 ML IV SCH (13:46)
[2017-12-10] MEDS: THIAMINE INJ 100 MG in SODIUM CHLORIDE 0.9% INJ 100 ML IV SCH (17:34)
[2017-12-11] VITALS (18 sets, daily range): BP systolic 125–153; BP diastolic 59–70; PULSE 62–78; RESP 16–27; TEMP 98.7–99.8; O2SAT 98–100
[2017-12-11] MEDS: METOPROLOL TARTRATE 25 MG TAB PO SCH ×4 (03:30→20:23)
[2017-12-11] MEDS: CHLORHEXIDINE GLUCONATE 2 % 1 PACK (2 CLOTHS) TOP SCH (03:31)
[2017-12-11] MEDS: INSULIN NovoLIN REGULAR SUPPLEMENTAL SCALE SQ SCH ×4 (03:31→21:44)
[2017-12-11] MEDS: RESP: ALBUTEROL 2.5 MG/IPRATROPIUM 0.5 MG NEB (SCH) INH ×2 (04:03→07:38)
[2017-12-11 05:34] LABS: AUTOMATED NEUTROPHIL # 4.7 TH/MM3 (1.8-7.7); BASOPHIL % 0.4 % (0.0-2.0); EOSINOPHIL # 0.3 TH/MM3 (0-0.4); EOSINOPHIL % 3.7 % (0.0-4.0); HEMATOCRIT 27.8 % (35.0-46.0); HEMOGLOBIN 9.4 GM/DL (11.6-15.3); LYMPH % 15.5 % (9.0-44.0); LYMPHOCYTE # 1.1 TH/MM3 (1.0-4.8); MEAN CELL VOLUME 83.4 FL (80.0-100.0); MEAN CORPUSCULAR HEMOGLOBIN 28.1 PG (27.0-34.0); MEAN CORPUSCULAR HGB CONC 33.7 % (32.0-36.0); MEAN PLATELET VOLUME 9.3 FL (7.0-11.0); MONO % 12.1 % (0.0-8.0); MONOCYTE # 0.8 TH/MM3 (0-0.9); NEUT % 68.3 % (16.0-70.0); PLATELET COUNT 155 TH/MM3 (150-450); RED BLOOD COUNT 3.34 MIL/MM3 (4.00-5.30); RED CELL DISTRIBUTION WIDTH 12.7 % (11.6-17.2); WHITE BLOOD COUNT 6.9 TH/MM3 (4.0-11.0)
[2017-12-11] MEDS: PROPOFOL 1000 MG/100 ML INJ 100 ML IV PRN ×4 (05:46→22:44)
[2017-12-11] MEDS: AMIODARONE INJ 450 MG in SODIUM CHLOR 0.9% (EXCEL) INJ 241 ML IV SCH ×2 (05:49→20:23)
[2017-12-11 06:25] LABS: ALBUMIN 2.2 GM/DL (3.4-5.0); AST (GOT) 44 U/L (15-37); BICARBONATE 30.6 MEQ/L (21.0-32.0); BLOOD UREA NITROGEN 48 MG/DL (7-18); CALCIUM 8.6 MG/DL (8.5-10.1); CHLORIDE 107 MEQ/L (98-107); GLOMERULAR FILTRATION RATE 44 ML/MIN (>89); GLUCOSE,RANDOM 108 MG/DL (74-106); MAGNESIUM 1.7 MG/DL (1.5-2.5); SODIUM (NA) 147 MEQ/L (136-145)
[2017-12-11 06:32] LABS: ALKALINE PHOSPHATASE 123 U/L (45-117); ALT (GPT) 150 U/L (10-53); PHOSPHORUS 5.2 MG/DL (2.5-4.9); TOTAL BILIRUBIN ADULT 0.4 MG/DL (0.2-1.0); TOTAL PROTEIN 5.3 GM/DL (6.4-8.2)
[2017-12-11] MEDS: DOCUSATE SODIUM 50 MG/SENNA 8.6 MG TAB PO SCH ×2 (08:24→20:57)
[2017-12-11] MEDS: FUROSEMIDE 40 MG/4 ML VIAL IV PUSH SCH ×2 (08:24→17:33)
[2017-12-11] MEDS: ASPIRIN 81 MG CHEW TAB NG SCH (08:25)
[2017-12-11] MEDS: FAMOTIDINE 20 MG TAB PO SCH ×2 (08:25→20:57)
[2017-12-11] MEDS: CHLORHEXIDINE 0.12% (ORAL KIT) 15 ML CUP MT SCH ×2 (08:25→20:00)
[2017-12-11] MEDS: SODIUM CHLORIDE FLUSH BID IV FLUSH SCH ×2 (08:25→20:23)
--- NOTE | 2017-12-11 09:51 | PD.CARD.PN ---
Subjective Subjective Remarks On CPAP Objective Medications Current Medications Medications (Trade) Dose Ordered Sig/April Route Start Time Stop Time Status Last Admin (Duoneb Neb) 1 ampule Q2HR NEB PRN INH 12/04/17 14:00 Miscellaneous Information 1 Q361D XX 12/04/17 14:00 (Chlorhexidine 2% Cloth) Taper DAILY@04 TOP 12/05/17 04:00 12/01/18 03:59 12/11/17 03:31 (Chlorhexidine 2% Cloth) 3 pack UNSCH PRN TOP 12/04/17 14:00 (Mera-Colace) 1 tab BID PO 12/04/17 21:00 12/11/17 08:24 (Milk Of Magnesia Liq) 30 ml Q12H PRN PO 12/04/17 14:00 (Senokot) 17.2 mg Q12H PRN PO 12/04/17 14:00 (Dulcolax Supp) 10 mg DAILY PRN RECTAL 12/04/17 14:00 (Lactulose Liq) 30 ml DAILY PRN PO 12/04/17 14:00 (D50w (Vial) Inj) 50 ml UNSCH PRN IV PUSH 12/04/17 14:00 (Glucagon Inj) 1 mg UNSCH PRN OTHER 12/04/17 14:00 Thiamine HCl 100 mg/Sodium Chloride 101 ml @ 101 mls/hr DAILY@1800 IV 12/04/17 18:00 12/10/17 17:34 (Peridex 0.12% Liq) 15 ml BID@08,20 MT 12/04/17 20:00 12/11/17 08:25 Propofol 100 ml @ 2.04 mls/hr TITRATE PRN IV 12/04/17 17:30 12/11/17 05:46 (NS Flush) 2 ml UNSCH PRN IVF 12/05/17 04:15 12/09/17 08:01 (NS Flush) 2 ml BID IV FLUSH 12/05/17 09:00 12/11/17 08:25 Amiodarone HCl 450 mg/Sodium Chloride 250 ml @ 17 mls/hr [id number] IV 12/05/17 04:30 12/11/17 05:49 Heparin Sodium/ Dextrose 250 ml @ 7.72 mls/hr TITRATE PRN IV 12/05/17 07:00 12/10/17 19:05 (Pepcid) 10 mg Q12HR PO 12/06/17 09:00 12/11/17 08:25 (Aspirin Chew) 81 mg DAILY NG 12/07/17 09:00 12/11/17 08:25 (Duoneb Neb) 1 ampule Q6HR NEB INH 12/07/17 16:00 12/11/17 07:38 Potassium Chloride 100 ml @ 50 mls/hr Q2H PRN IV 12/09/17 08:00 Potassium Chloride 100 ml @ 50 mls/hr Q2H PRN IV 12/09/17 08:00 (K-Lyte Cl Eff) 50 meq UNSCH PRN PO 12/09/17 08:00 Potassium Chloride 100 ml @ 25 mls/hr UNSCH PRN IV 12/09/17 08:00 Potassium Chloride 100 ml @ 50 mls/hr Q2H PRN IV 12/09/17 08:00 12/09/17 10:23 Magnesium Sulfate 4 gm/Sodium Chloride 100 ml @ 50 mls/hr UNSCH PRN IV 12/09/17 08:00 (Mag-Ox) 800 mg UNSCH PRN PO 12/09/17 08:00 Magnesium Sulfate 2 gm/Sodium Chloride 100 ml @ 50 mls/hr UNSCH PRN IV 12/09/17 08:00 (K-Phos) 2,000 mg Q4H PRN PO 12/09/17 08:00 Sodium Phosphate 30 mmol/Sodium Chloride 250 ml @ 42 mls/hr UNSCH PRN IV 12/09/17 08:00 (K-Phos) 2,000 mg UNSCH PRN PO/TUBE 12/09/17 08:00 Potassium Phosphate 30 mmol/ Sodium Chloride 260 ml @ 42 mls/hr UNSCH PRN IV 12/09/17 08:00 (Lasix Inj) 40 mg BID@,18 IV PUSH 12/09/17 09:00 12/11/17 08:24 (NovoLIN R SUPPLEMENTAL SCALE) 1 Q6H SQ 12/09/17 10:00 (Lopressor) 25 mg Q6H PO 12/09/17 14:00 12/11/17 08:25 Vital Signs / I&O Vital Signs Date Time Temp Pulse Resp B/P (MAP) Pulse Ox O2 Delivery O2 Flow Rate FiO2 12/11/17 08:25 30 12/11/17 07:38 100 30 12/11/17 06:00 65 12/11/17 05:49 63 125/61 12/11/17 04:03 100 30 12/11/17 04:00 62 12/11/17 04:00 30 12/11/17 04:00 98.9 62 18 129/62 (84) 100 12/11/17 02:00 66 12/11/17 00:21 100 30 12/11/17 00:00 99.2 67 18 125/59 (81) 100 12/11/17 00:00 67 12/11/17 00:00 30 12/10/17 22:00 71 12/10/17 20:00 30 12/10/17 20:00 74 12/10/17 20:00 99.2 74 19 147/67 (93) 100 12/10/17 19:50 100 30 12/10/17 19:00 72 141/63 12/10/17 18:00 76 12/10/17 16:56 100 30 12/10/17 16:00 98.3 75 18 138/65 (89) 100 12/10/17 16:00 75 12/10/17 14:00 73 12/10/17 13:46 74 144/65 12/10/17 12:00 12/10/17 12:00 99.8 74 21 134/63 (86) 99 12/10/17 12:00 74 12/10/17 11:30 30 12/10/17 10:56 100 30 12/10/17 10:00 72 I/O 12/10/17 12/10/17 12/10/17 12/11/17 12/11/17 12/11/17 07:00 15:00 23:00 07:00 15:00 23:00 Intake Total 1035 ml 340 ml 1121 ml 687 ml Output Total 1000 ml 1150 ml 1200 ml Balance 35 ml 340 ml -29 ml -513 ml IV Total 266 ml 340 ml 451 ml Tube Feeding 569 ml 670 ml 567 ml Other 200 ml 120 ml Output Urine Total 1000 ml 1150 ml 1200 ml # Bowel Movements 0 0 Physical Exam on CPAP Much more alert, following a few commands Neck less JVD Chest + rhonchi CV: SR, past AF Abd soft Ext: slight edema LFT's and BUN/creat trending down Laboratory Laboratory Tests Test 12/10/17 21:50 12/11/17 05:00 Activated Partial Thromboplast Time 62.0 SEC 63.0 SEC White Blood Count 6.9 TH/MM3 Red Blood Count 3.34 MIL/MM3 Hemoglobin 9.4 GM/DL Hematocrit 27.8 % Mean Corpuscular Volume 83.4 FL Mean Corpuscular Hemoglobin 28.1 PG Mean Corpuscular Hemoglobin Concent 33.7 % Red Cell Distribution Width 12.7 % Platelet Count 155 TH/MM3 Mean Platelet Volume 9.3 FL Neutrophils (%) (Auto) 68.3 % Lymphocytes (%) (Auto) 15.5 % Monocytes (%) (Auto) 12.1 % Eosinophils (%) (Auto) 3.7 % Basophils (%) (Auto) 0.4 % Neutrophils # (Auto) 4.7 TH/MM3 Lymphocytes # (Auto) 1.1 TH/MM3 Monocytes # (Auto) 0.8 TH/MM3 Eosinophils # (Auto) 0.3 TH/MM3 Basophils # (Auto) 0.0 TH/MM3 CBC Comment DIFF FINAL Differential Comment Blood Urea Nitrogen 48 MG/DL Creatinine 1.20 MG/DL Random Glucose 108 MG/DL Total Protein 5.3 GM/DL Albumin 2.2 GM/DL Calcium Level 8.6 MG/DL Phosphorus Level 5.2 MG/DL Magnesium Level 1.7 MG/DL Alkaline Phosphatase 123 U/L Aspartate Amino Transf (AST/SGOT) 44 U/L Alanine Aminotransferase (ALT/SGPT) 150 U/L Total Bilirubin 0.4 MG/DL Sodium Level 147 MEQ/L Potassium Level 3.7 MEQ/L Chloride Level 107 MEQ/L Carbon Dioxide Level 30.6 MEQ/L Anion Gap 9 MEQ/L Estimat Glomerular Filtration Rate 44 ML/MIN Assessment and Plan Problem List: (1) Paroxysmal atrial fibrillation with rapid ventricular response ICD Codes: I48.0 - Paroxysmal atrial fibrillation Status: Acute (2) Altered mental status ICD Codes: R41.82 - Altered mental status, unspecified Status: Acute (3) Severe sepsis ICD Codes: A41.9 - Sepsis, unspecified organism; R65.20 - Severe sepsis without septic shock Status: Acute (4) Non-ST elevation [place] (NSTEMI) ICD Codes: I21.4 - Non-ST elevation (NSTEMI) myocardial infarction Status: Acute (5) Cardiomyopathy ICD Codes: I42.9 - Cardiomyopathy, unspecified Status: Chronic (6) CVA (cerebral infarction) ICD Codes: I63.9 - Cerebral infarction Status: Acute (7) Shock liver ICD Codes: K72.00 - Acute and subacute hepatic failure without coma (8) LAI (acute kidney injury) ICD Codes: N17.9 - Acute kidney failure, unspecified Status: Acute Assessment and Plan Changing amio to PO. Slow improvement. Problem Qualifiers (1) Altered mental status: Rich Meza MD Dec 11, 2017 09:51
--- NOTE | 2017-12-11 10:02 | HHI.PR ---
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 12/09 more responsive follows all simple commands, moves 4 limbs on request points to mouth, discomfort from tube icu care and monitor neuro, repeat mri brain when extubated 12/11 alert and follows all simple commands mildly anxious because of endotracheal tube moves 4 limbs on request MRI brain follow up next week when extubated dr Mccray will cover neuro care Subjective Subjective Comments intubared, off sedation Active Medications Current Medications Medications (Trade) Dose Ordered Sig/April Route Start Time Stop Time Status Last Admin (Duoneb Neb) 1 ampule Q2HR NEB PRN INH 12/04/17 14:00 Miscellaneous Information 1 Q361D XX 12/04/17 14:00 (Chlorhexidine 2% Cloth) Taper DAILY@04 TOP 12/05/17 04:00 12/01/18 03:59 12/11/17 03:31 (Chlorhexidine 2% Cloth) 3 pack UNSCH PRN TOP 12/04/17 14:00 (Mera-Colace) 1 tab BID PO 12/04/17 21:00 12/11/17 08:24 (Milk Of Magnesia Liq) 30 ml Q12H PRN PO 12/04/17 14:00 (Senokot) 17.2 mg Q12H PRN PO 12/04/17 14:00 (Dulcolax Supp) 10 mg DAILY PRN RECTAL 12/04/17 14:00 (Lactulose Liq) 30 ml DAILY PRN PO 12/04/17 14:00 (D50w (Vial) Inj) 50 ml UNSCH PRN IV PUSH 12/04/17 14:00 (Glucagon Inj) 1 mg UNSCH PRN OTHER 12/04/17 14:00 Thiamine HCl 100 mg/Sodium Chloride 101 ml @ 101 mls/hr DAILY@1800 IV 12/04/17 18:00 12/10/17 17:34 (Peridex 0.12% Liq) 15 ml BID@08,20 MT 12/04/17 20:00 12/11/17 08:25 Propofol 100 ml @ 2.04 mls/hr TITRATE PRN IV 12/04/17 17:30 12/11/17 05:46 (NS Flush) 2 ml UNSCH PRN IVF 12/05/17 04:15 12/09/17 08:01 (NS Flush) 2 ml BID IV FLUSH 12/05/17 09:00 12/11/17 08:25 Amiodarone HCl 450 mg/Sodium Chloride 250 ml @ 17 mls/hr [id number] IV 12/05/17 04:30 12/11/17 05:49 Heparin Sodium/ Dextrose 250 ml @ 7.72 mls/hr TITRATE PRN IV 12/05/17 07:00 12/10/17 19:05 (Pepcid) 10 mg Q12HR PO 12/06/17 09:00 12/11/17 08:25 (Aspirin Chew) 81 mg DAILY NG 12/07/17 09:00 12/11/17 08:25 (Duoneb Neb) 1 ampule Q6HR NEB INH 12/07/17 16:00 12/11/17 07:38 Potassium Chloride 100 ml @ 50 mls/hr Q2H PRN IV 12/09/17 08:00 Potassium Chloride 100 ml @ 50 mls/hr Q2H PRN IV 12/09/17 08:00 (K-Lyte Cl Eff) 50 meq UNSCH PRN PO 12/09/17 08:00 Potassium Chloride 100 ml @ 25 mls/hr UNSCH PRN IV 12/09/17 08:00 Potassium Chloride 100 ml @ 50 mls/hr Q2H PRN IV 12/09/17 08:00 12/09/17 10:23 Magnesium Sulfate 4 gm/Sodium Chloride 100 ml @ 50 mls/hr UNSCH PRN IV 12/09/17 08:00 (Mag-Ox) 800 mg UNSCH PRN PO 12/09/17 08:00 Magnesium Sulfate 2 gm/Sodium Chloride 100 ml @ 50 mls/hr UNSCH PRN IV 12/09/17 08:00 (K-Phos) 2,000 mg Q4H PRN PO 12/09/17 08:00 Sodium Phosphate 30 mmol/Sodium Chloride 250 ml @ 42 mls/hr UNSCH PRN IV 12/09/17 08:00 (K-Phos) 2,000 mg UNSCH PRN PO/TUBE 12/09/17 08:00 Potassium Phosphate 30 mmol/ Sodium Chloride 260 ml @ 42 mls/hr UNSCH PRN IV 12/09/17 08:00 (Lasix Inj) 40 mg BID@09,18 IV PUSH 12/09/17 09:00 12/11/17 08:24 (NovoLIN R SUPPLEMENTAL SCALE) 1 Q6H SQ 12/09/17 10:00 (Lopressor) 25 mg Q6H PO 12/09/17 14:00 12/11/17 08:25 Allergies Allergies Coded Allergies doxycycline (Unverified Allergy, Severe, 12/04/17) minocycline (Unverified Allergy, Severe, 12/04/17) tigecycline (Unverified Allergy, Severe, 12/04/17) Exam I&O / VS Vital Signs Date Time Temp Pulse Resp B/P (MAP) Pulse Ox O2 Delivery O2 Flow Rate FiO2 12/11/17 08:25 30 12/11/17 07:38 100 30 12/11/17 06:00 65 12/11/17 05:49 63 125/61 12/11/17 04:03 100 30 12/11/17 04:00 62 12/11/17 04:00 30 12/11/17 04:00 98.9 62 18 129/62 (84) 100 12/11/17 02:00 66 12/11/17 00:21 100 30 12/11/17 00:00 99.2 67 18 125/59 (81) 100 12/11/17 00:00 67 12/11/17 00:00 30 12/10/17 22:00 71 12/10/17 20:00 30 12/10/17 20:00 74 12/10/17 20:00 99.2 74 19 147/67 (93) 100 12/10/17 19:50 100 30 12/10/17 19:00 72 141/63 12/10/17 18:00 76 12/10/17 16:56 100 30 12/10/17 16:00 98.3 75 18 138/65 (89) 100 12/10/17 16:00 75 12/10/17 14:00 73 12/10/17 13:46 74 144/65 12/10/17 12:00 12/10/17 12:00 99.8 74 21 134/63 (86) 99 12/10/17 12:00 74 12/10/17 11:30 30 12/10/17 10:56 100 30 12/10/17 10:00 72 Objective Micro and Labs Laboratory Tests Test 12/10/17 21:50 12/11/17 05:00 Activated Partial Thromboplast Time 62.0 63.0 White Blood Count 6.9 Red Blood Count 3.34 Hemoglobin 9.4 Hematocrit 27.8 Mean Corpuscular Volume 83.4 Mean Corpuscular Hemoglobin 28.1 Mean Corpuscular Hemoglobin Concent 33.7 Red Cell Distribution Width 12.7 Platelet Count 155 Mean Platelet Volume 9.3 Neutrophils (%) (Auto) 68.3 Lymphocytes (%) (Auto) 15.5 Monocytes (%) (Auto) 12.1 Eosinophils (%) (Auto) 3.7 Basophils (%) (Auto) 0.4 Neutrophils # (Auto) 4.7 Lymphocytes # (Auto) 1.1 Monocytes # (Auto) 0.8 Eosinophils # (Auto) 0.3 Basophils # (Auto) 0.0 CBC Comment DIFF FINAL Differential Comment Blood Urea Nitrogen 48 Creatinine 1.20 Random Glucose 108 Total Protein 5.3 Albumin 2.2 Calcium Level 8.6 Phosphorus Level 5.2 Magnesium Level 1.7 Alkaline Phosphatase 123 Aspartate Amino Transf (AST/SGOT) 44 Alanine Aminotransferase (ALT/SGPT) 150 Total Bilirubin 0.4 Sodium Level 147 Potassium Level 3.7 Chloride Level 107 Carbon Dioxide Level 30.6 Anion Gap 9 Estimat Glomerular Filtration Rate 44 Date/Time Source Procedure Growth Status 12/04/17 11:38 Blood Peripheral Aerobic Blood Culture - Final NO GROWTH IN 5 DAYS Complete 12/04/17 11:38 Blood Peripheral Anaerobic Blood Culture - Final NO GROWTH IN 5 DAYS Complete 12/04/17 14:50 Cerebral Spinal Fluid Lumbar Puncture Fungal Smear - Final NO FUNGAL ELEMENTS SEEN. Resulted 12/04/17 14:50 Cerebral Spinal Fluid Lumbar Puncture Fungal Culture Pending Resulted 12/04/17 18:00 Sputum Endotracheal Gram Stain - Final Complete 12/04/17 18:00 Sputum Endotracheal Sputum Culture - Final HEAVY GROWTH NORMAL RESPIRATORY GURMEET Complete 12/06/17 06:30 Urine Catheterized Urine Urine Culture - Final NO GROWTH IN 48 HOURS. Complete Sae Hayward MD Dec 11, 2017 10:02
--- NOTE | 2017-12-11 10:04 | HHI.CCPN ---
Subjective Remarks/Hospital Course 77-year-old female who is apparently very active at baseline, with past medical history significant for hypertension and previous TIA, tobacco abuse. She was seen last normal yesterday night at 7 PM. Her friends checked on her today morning and was found down, disoriented, staring off to the left, not answering questions. I am not able to get much further history from her. She has a fever of 101 in the ER, initially and then spiked to 103.7. ER workup included a CT scan of head which was negative for acute findings. Lab work showed a white count of 15.9 with left shift, lactic acid was 3.4, troponin was elevated at 8.7. Cardiology Dr. Meza was contacted aspirin was given patient was recommended to be started on IV heparin but was held for LP. Lumbar puncture was unremarkable nevertheless patient was started on meningitic doses of vancomycin and Rocephin. I have added ampicillin 2 g IV every 4 hours, and acyclovir 680 mg IV every 8 hours. I evaluated the patient in the ICU. Patient is severely altered tachypneic in moderate distress. Patient is aphasic with left gaze preference diminished movements of the right upper and lower extremity. A bedside echo shows reduced EF approximately 20-25%, global hypokinesis. Patient has no history of cardiomyopathy to my knowledge. At this time his stroke cannot be ruled out. Stat MRI MRA had been ordered. Due to altered mentation tachypnea and lack of airway protection patient was intubated and placed on mechanical ventilation SUBJECTIVE: 12/05: Remains intubated sedated. MRI brain showing small punctate areas of signal abnormality in the posterior left temporal lobe-possible small focal areas of acute infarction. Also several areas of signal abnormality in the basal ganglia and left posterior temporal lobes likely from prior hemorrhage. Demyelination within the cerebral and pontine white matter likely from small vessel ischemic change. Neurology consult. Stat EEG is pending. Fever is down trending afebrile now, developed atrial fibrillation with RVR started on amiodarone infusion. I have resumed heparin infusion. 12/06: Afebrile. Last evening the patient had decreased mat requiring additional pressor support vasopressin added to medication regimen and diminished urinary output. Patient was noted to have significant elevation in creatinine this a.m. Patient remains on vasopressin and norepinephrine vasopressor support. Patient continues on amiodarone infusion, plan to transition to p.o.. Sedation vacation initiated yesterday for EEG, per report patient following commands. Sedation vacation in progress at this time. Noticed slight elevation in WBC count, repeat urine culture pending. 12/07: Remains intubated sedated. Currently on IV heparin infusion, amiodarone infusion and vasopressin gtt to maintain MAP >65. Had developed acute kidney injury yesterday creatinine had bumped to 2. Urine output 550 mL in the last 24 hours. CMP today is pending. On sedation hold patient opens eyes weakly moves extremities do not follow commands. Remains severely encephalopathy 12/08: No events over the night. Patient remains encephalopathic, opens eyes to voice stimuli, but does not consistently follow commands. She remains on amiodarone and heparin infusions, no pressors. T-max of 99.6. I/O 2250/960, more than 11 L positive since admission if correctly documented. 12/09: Few episodes of A. fib with RVR over the night. T-max of 99.1. Patient remains intubated and sedated. No family present at bedside. 12/10: No events over the night. Patient is more awake this a.m. 30 with propofol. Good response to diuresis, T-max 100.1. In telemetry, patient currently in sinus rhythm and she continues to be on amiodarone infusion. 12/11: No events over the night. T-max of 100.2. On 35 off propofol this morning, arousable, following some commands. Diuresing well with Lasix. She remains in sinus rhythm. ROS -unobtainable, since patient is intubated. Objective Vital Signs Date Time Temp Pulse Resp B/P (MAP) Pulse Ox O2 Delivery O2 Flow Rate FiO2 12/11/17 08:25 30 12/11/17 07:38 100 12/11/17 06:00 65 12/11/17 05:49 125/61 12/11/17 04:00 98.9 18 12/10/17 07:59 Ventilator Intake and Output 12/11/17 12/11/17 12/12/17 08:00 16:00 00:00 Intake Total 687 ml Output Total 1200 ml Balance -513 ml Result Diagram: 12/11/17 0500 12/11/17 0500 Imaging Last 24 hours Impressions Chest X-Ray 12/10/17 0600 Signed Impressions: Service Date/Time: November 03:55 - CONCLUSION: 1. Right basilar density unchanged likely small pleural effusion and associated density. 2. Cardiomegaly. Gideon Lin MD Last 24 hours Impressions Chest X-Ray 12/08/17 0600 Signed Impressions: Service Date/Time: Friday, December 08, 2017 03:05 - CONCLUSION: 1. Endotracheal tube and nasogastric tube in satisfactory position. Mild basilar airspace disease persists. Shay Rausch MD Last Impressions Chest X-Ray 12/05/17 0000 Signed Impressions: Service Date/Time: Tuesday, December 05, 2017 13:23 - CONCLUSION: 1. Interval placement of a right subclavian central venous catheter with the tip projecting over the central venous system. No pneumothorax 2. Lungs remain hyperinflated with probable bibasilar atelectasis. 3. Compensated cardiomegaly. Mahendra Poe MD Chest CT 12/04/17 1154 Signed Impressions: Service Date/Time: Monday, December 04, 2017 12:43 - CONCLUSION: Probable mild congestive failure with trace pleural effusions. No evidence for mass. Jean-Paul Hoffmann MD FACR Head CT 12/04/17 1126 Signed Impressions: Service Date/Time: Monday, December 04, 2017 12:37 - CONCLUSION: Stable brain appearance. No acute intracranial findings Anam Rojas MD Neck Magnetic Resonance Angiography 12/04/17 0000 Signed Impressions: Service Date/Time: Monday, December 04, 2017 20:36 - CONCLUSION: 1. Mild plaque at the right carotid bulb/proximal internal carotid artery without significant stenosis. 2. Significant opacification of the aortic arch and origins of the great vessels is not present. These areas cannot be evaluated. Anam Donis MD Head Magnetic Resonance Angiography 12/04/17 0000 Signed Impressions: Service Date/Time: Monday, December 04, 2017 20:36 - CONCLUSION: No acute disease. Anam Donis MD Brain MRI 12/04/17 0000 Signed Impressions: Service Date/Time: Monday, December 04, 2017 20:36 - CONCLUSION: 1. Small punctate areas of signal abnormality in the posterior left temporal lobe which may represent small focal areas of acute infarction. 2. Several areas of signal abnormality in the basal ganglia and left posterior temporal lobes likely from prior hemorrhage. 3. Demyelination within the cerebral and pontine white matter likely from small vessel ischemic change. Anam Donis MD Objective Remarks General - elderly lady, intubated, sedated, arousable, ill-appearing HEENT - pupils equal, reactive, sclerae anicteric, neck supple, no rigidity, neck veins distended, orally intubated, subclavian line in place -site remains clean CV - irregular S1 and S2, no murmurs appreciated Chest - scattered coarse breath sounds b/l, good air entry, no wheezes Abdomen - soft, nondistended, non-tender, BS present Skin - no rashes Extremities - warm, 1+ edema over both upper and lower extremities, + peripheral pulses Neuro - intubated, sedated, arousable and follows some commands but patient remains very weak, does not move left upper extremity, wiggles toes bilateral and squeezes fingers with the right hand A/P Problem List: (1) Acute metabolic encephalopathy ICD Code: G93.41 - Metabolic encephalopathy Status: Acute (2) Paroxysmal atrial fibrillation with rapid ventricular response ICD Code: I48.0 - Paroxysmal atrial fibrillation Status: Acute (3) Lactic acidemia ICD Code: E87.2 - Acidosis Status: Acute (4) Cardiomyopathy ICD Code: I42.9 - Cardiomyopathy, unspecified Status: Chronic (5) Non-ST elevation [place] (NSTEMI) ICD Code: I21.4 - Non-ST elevation (NSTEMI) myocardial infarction Status: Acute (6) Severe sepsis ICD Code: A41.9 - Sepsis, unspecified organism; R65.20 - Severe sepsis without septic shock Status: Acute (7) Altered mental status ICD Code: R41.82 - Altered mental status, unspecified Status: Acute (8) Hypertension ICD Code: I10 - Hypertension Status: Chronic (9) LAI (acute kidney injury) ICD Code: N17.9 - Acute kidney failure, unspecified Status: Acute (10) Metabolic acidosis ICD Code: E87.2 - Acidosis Status: Acute Assessment and Plan 1. Acute encephalopathy -very slowly improving, but patient remains weak 2. Ischemic stroke 3. Acute respiratory failure from lack of airway protection, on minimal O2 requirement 4. NSTEMI 5. Cardiomyopathy, with reduced EF, possible viral myocarditis 6. Atrial fibrillation with RVR -heart rate better controlled 7. Circulatory shock -patient remains off pressors 8. LAI -creatinine improving, urine output is appropriate 9. Severe metabolic acidosis - resolved 10. Volume overload -positive more than 11 L since admission, improved with diuresis 11. Elevated liver enzymes -gradually trending down 1. Continue PRVC at current vent settings. PIP of 23, FiO2 of 0.4, patient is synchronized with the vent, no auto PEEP 2. Vent bundle and bronchodilators 3. Stop propofol and when more awake start CPAP 4. Continue amiodarone drip and heparin drip. Further management per cardiology 5. Continue metoprolol 6. Continue diuresis with Lasix 7. Check liver ultrasound and hepatitis profile 8. Off antibiotics per ID 9. Central line right subclavian (12/05) and left radial art line 10. GI and DVT prophylaxis addressed 11. On tube feeds No family present at bedside. Problem Qualifiers (1) Altered mental status: (2) Hypertension: Qualified Codes: I10 - Essential (primary) hypertension Kiel Hernandez MD Dec 11, 2017 10:04
[2017-12-11] MEDS: HEPARIN-D5W 25,000 U/250 ML 250 ML IV PRN (10:48)
--- NOTE | 2017-12-11 15:30 | RADRPT ---
EXAM DATE/TIME: 12/11/2017 13:59 [facility] COMPARISON: No previous studies available for comparison. INDICATIONS : Increased lab values. MEDICAL HISTORY : Stroke. Hypertension. Transient ischemic attack. Anticoagulant therpay, asa. SURGICAL HISTORY : Bilateral cataract surgery. ENCOUNTER: Initial ACUITY: 1 day PAIN SCORE: Nonresponsive. LOCATION: Bilateral upper quadrant MEASUREMENTS: LIVER: 20.1 cm length COMMON DUCT: 4 mm RIGHT KIDNEY: 10.8 x 5.5 x 4.5 cm SPLEEN: 9.3 cm length FINDINGS: LIVER: Normal echotexture without focal lesion or ductal dilatation. COMMON DUCT: No intraluminal mass or stone visualized. GALLBLADDER: Contains no stones, demonstrates no wall thickening or pericholecystic fluid. PANCREAS: The visualized portions are within normal limits. RIGHT KIDNEY: No hydronephrosis, stone or mass. SPLEEN: No focal lesion. MISCELLANEOUS: Trace fluid adjacent to the gallbladder and bare area of the liver. Bilateral pleural effusions. CONCLUSION: 1. Liver is prominent with no focal mass lesions or fatty infiltration. 2. Trace fluid about the liver. 3. Bilateral pleural effusions. Mahendra Poe MD on December 11, 2017 at 15:23 Board Certified Radiologist. This report was verified electronically.
[2017-12-11] MEDS: THIAMINE INJ 100 MG in SODIUM CHLORIDE 0.9% INJ 100 ML IV SCH (17:29)
[2017-12-11] MEDS: AMIODARONE 200 MG TAB PO SCH (20:57)
[2017-12-12] VITALS (18 sets, daily range): BP systolic 132–147; BP diastolic 64–92; PULSE 69–81; RESP 16–28; TEMP 98.8–99.1; O2SAT 93–100
[2017-12-12] MEDS: METOPROLOL TARTRATE 25 MG TAB PO SCH ×4 (01:43→20:13)
[2017-12-12] MEDS: CHLORHEXIDINE GLUCONATE 2 % 1 PACK (2 CLOTHS) TOP SCH (03:49)
[2017-12-12] MEDS: HEPARIN-D5W 25,000 U/250 ML 250 ML IV PRN ×2 (03:51→20:16)
[2017-12-12] MEDS: INSULIN NovoLIN REGULAR SUPPLEMENTAL SCALE SQ SCH ×3 (03:53→21:49)
[2017-12-12] MEDS: RESP: ALBUTEROL 2.5 MG/IPRATROPIUM 0.5 MG NEB (PRN) INH (04:29)
[2017-12-12] MEDS: PROPOFOL 1000 MG/100 ML INJ 100 ML IV PRN ×2 (04:36→15:00)
[2017-12-12 06:01] LABS: AUTOMATED NEUTROPHIL # 13.5 TH/MM3 (1.8-7.7); BASOPHIL # 0.1 TH/MM3 (0-0.2); BASOPHIL % 0.5 % (0.0-2.0); EOSINOPHIL # 0.1 TH/MM3 (0-0.4); EOSINOPHIL % 0.4 % (0.0-4.0); HEMATOCRIT 28.8 % (35.0-46.0); HEMOGLOBIN 9.6 GM/DL (11.6-15.3); LYMPH % 7.4 % (9.0-44.0); LYMPHOCYTE # 1.2 TH/MM3 (1.0-4.8); MEAN CELL VOLUME 82.9 FL (80.0-100.0); MEAN CORPUSCULAR HEMOGLOBIN 27.7 PG (27.0-34.0); MEAN CORPUSCULAR HGB CONC 33.4 % (32.0-36.0); MEAN PLATELET VOLUME 9.5 FL (7.0-11.0); MONO % 7.4 % (0.0-8.0); MONOCYTE # 1.2 TH/MM3 (0-0.9); NEUT % 84.3 % (16.0-70.0); PLATELET COUNT 169 TH/MM3 (150-450); RED BLOOD COUNT 3.48 MIL/MM3 (4.00-5.30); RED CELL DISTRIBUTION WIDTH 12.8 % (11.6-17.2)
[2017-12-12 06:12] LABS: ALBUMIN 2.4 GM/DL (3.4-5.0); AST (GOT) 61 U/L (15-37); BICARBONATE 31.2 MEQ/L (21.0-32.0); BLOOD UREA NITROGEN 53 MG/DL (7-18); CALCIUM 8.7 MG/DL (8.5-10.1); CHLORIDE 103 MEQ/L (98-107); GLOMERULAR FILTRATION RATE 40 ML/MIN (>89); GLUCOSE,RANDOM 123 MG/DL (74-106); MAGNESIUM 1.8 MG/DL (1.5-2.5); SODIUM (NA) 145 MEQ/L (136-145)
[2017-12-12 06:15] LABS: ALKALINE PHOSPHATASE 164 U/L (45-117); ALT (GPT) 129 U/L (10-53); PHOSPHORUS 5.5 MG/DL (2.5-4.9); TOTAL BILIRUBIN ADULT 0.7 MG/DL (0.2-1.0); TOTAL PROTEIN 5.8 GM/DL (6.4-8.2)
--- NOTE | 2017-12-12 07:06 | RADRPT ---
EXAM DATE/TIME: 12/12/2017 06:50 [facility] COMPARISON: CHEST SINGLE AP, December 10, 2017, 3:55. INDICATIONS : Pneumonia. MEDICAL HISTORY : Hypertension. SURGICAL HISTORY : None. ENCOUNTER: Subsequent ACUITY: 1 week PAIN SCORE: Non-responsive. LOCATION: Bilateral chest FINDINGS: There is consolidation at both bases. Cardiomegaly. Enteric tube courses. Right subclavian venous cat heter tip overlies the expected location of the SVC. Small bilateral pleural effusions. Endotracheal tube tip at the level. CONCLUSION: No significant change has occurred. Philippe Peters MD on December 12, 2017 at 7:03 Board Certified Radiologist. This report was verified electronically.
[2017-12-12] MEDS: CHLORHEXIDINE 0.12% (ORAL KIT) 15 ML CUP MT SCH ×2 (08:00→20:00)
[2017-12-12] MEDS: DOCUSATE SODIUM 50 MG/SENNA 8.6 MG TAB PO SCH ×2 (09:00→20:13)
--- NOTE | 2017-12-12 09:31 | HHI.CCPN ---
Subjective Remarks/Hospital Course 77-year-old female who is apparently very active at baseline, with past medical history significant for hypertension and previous TIA, tobacco abuse. She was seen last normal yesterday night at 7 PM. Her friends checked on her today morning and was found down, disoriented, staring off to the left, not answering questions. I am not able to get much further history from her. She has a fever of 101 in the ER, initially and then spiked to 103.7. ER workup included a CT scan of head which was negative for acute findings. Lab work showed a white count of 15.9 with left shift, lactic acid was 3.4, troponin was elevated at 8.7. Cardiology Dr. Meza was contacted aspirin was given patient was recommended to be started on IV heparin but was held for LP. Lumbar puncture was unremarkable nevertheless patient was started on meningitic doses of vancomycin and Rocephin. I have added ampicillin 2 g IV every 4 hours, and acyclovir 680 mg IV every 8 hours. I evaluated the patient in the ICU. Patient is severely altered tachypneic in moderate distress. Patient is aphasic with left gaze preference diminished movements of the right upper and lower extremity. A bedside echo shows reduced EF approximately 20-25%, global hypokinesis. Patient has no history of cardiomyopathy to my knowledge. At this time his stroke cannot be ruled out. Stat MRI MRA had been ordered. Due to altered mentation tachypnea and lack of airway protection patient was intubated and placed on mechanical ventilation SUBJECTIVE: 12/05: Remains intubated sedated. MRI brain showing small punctate areas of signal abnormality in the posterior left temporal lobe-possible small focal areas of acute infarction. Also several areas of signal abnormality in the basal ganglia and left posterior temporal lobes likely from prior hemorrhage. Demyelination within the cerebral and pontine white matter likely from small vessel ischemic change. Neurology consult. Stat EEG is pending. Fever is down trending afebrile now, developed atrial fibrillation with RVR started on amiodarone infusion. I have resumed heparin infusion. 12/06: Afebrile. Last evening the patient had decreased mat requiring additional pressor support vasopressin added to medication regimen and diminished urinary output. Patient was noted to have significant elevation in creatinine this a.m. Patient remains on vasopressin and norepinephrine vasopressor support. Patient continues on amiodarone infusion, plan to transition to p.o.. Sedation vacation initiated yesterday for EEG, per report patient following commands. Sedation vacation in progress at this time. Noticed slight elevation in WBC count, repeat urine culture pending. 12/07: Remains intubated sedated. Currently on IV heparin infusion, amiodarone infusion and vasopressin gtt to maintain MAP >65. Had developed acute kidney injury yesterday creatinine had bumped to 2. Urine output 550 mL in the last 24 hours. CMP today is pending. On sedation hold patient opens eyes weakly moves extremities do not follow commands. Remains severely encephalopathy 12/08: No events over the night. Patient remains encephalopathic, opens eyes to voice stimuli, but does not consistently follow commands. She remains on amiodarone and heparin infusions, no pressors. T-max of 99.6. I/O 2250/960, more than 11 L positive since admission if correctly documented. 12/09: Few episodes of A. fib with RVR over the night. T-max of 99.1. Patient remains intubated and sedated. No family present at bedside. 12/10: No events over the night. Patient is more awake this a.m. 30 with propofol. Good response to diuresis, T-max 100.1. In telemetry, patient currently in sinus rhythm and she continues to be on amiodarone infusion. 12/11: No events over the night. T-max of 100.2. On 35 off propofol this morning, arousable, following some commands. Diuresing well with Lasix. She remains in sinus rhythm. 12/12: Patient remains intubated and sedated, on propofol at 35. Yesterday patient tolerated CPAP trials for a little less than 2 hours. Afebrile, with a T-max of 99.8. I/O 0/2099. Patient is arousable, tracking, following some commands. ROS -unobtainable, since patient is intubated. Objective Vital Signs Date Time Temp Pulse Resp B/P (MAP) Pulse Ox O2 Delivery O2 Flow Rate FiO2 12/12/17 09:13 100 30 12/12/17 06:00 72 12/12/17 04:00 99.1 16 132/64 (86) 12/10/17 07:59 Ventilator Intake and Output 12/12/17 12/12/17 12/13/17 08:00 16:00 00:00 Intake Total 995 ml Output Total 650 ml Balance 345 ml Result Diagram: 12/12/17 0500 12/12/17 0500 Imaging Last 24 hours Impressions Chest X-Ray 12/12/17 0000 Signed Impressions: Service Date/Time: Tuesday, December 12, 2017 06:50 - CONCLUSION: No significant change has occurred. Philippe Peters MD Last 24 hours Impressions Chest X-Ray 12/10/17 0600 Signed Impressions: Service Date/Time: November 03:55 - CONCLUSION: 1. Right basilar density unchanged likely small pleural effusion and associated density. 2. Cardiomegaly. Gideon Lin MD Last 24 hours Impressions Chest X-Ray 12/08/17 0600 Signed Impressions: Service Date/Time: Friday, December 08, 2017 03:05 - CONCLUSION: 1. Endotracheal tube and nasogastric tube in satisfactory position. Mild basilar airspace disease persists. Shay Rausch MD Last Impressions Chest X-Ray 12/05/17 0000 Signed Impressions: Service Date/Time: Tuesday, December 05, 2017 13:23 - CONCLUSION: 1. Interval placement of a right subclavian central venous catheter with the tip projecting over the central venous system. No pneumothorax 2. Lungs remain hyperinflated with probable bibasilar atelectasis. 3. Compensated cardiomegaly. Mahendra Poe MD Chest CT 12/04/17 1154 Signed Impressions: Service Date/Time: Monday, December 04, 2017 12:43 - CONCLUSION: Probable mild congestive failure with trace pleural effusions. No evidence for mass. Jean-Paul Hoffmann MD FACR Head CT 12/04/17 1126 Signed Impressions: Service Date/Time: Monday, December 04, 2017 12:37 - CONCLUSION: Stable brain appearance. No acute intracranial findings Anam Rojas MD Neck Magnetic Resonance Angiography 12/04/17 0000 Signed Impressions: Service Date/Time: Monday, December 04, 2017 20:36 - CONCLUSION: 1. Mild plaque at the right carotid bulb/proximal internal carotid artery without significant stenosis. 2. Significant opacification of the aortic arch and origins of the great vessels is not present. These areas cannot be evaluated. Anam Donis MD Head Magnetic Resonance Angiography 12/04/17 0000 Signed Impressions: Service Date/Time: Monday, December 04, 2017 20:36 - CONCLUSION: No acute disease. Anam Donis MD Brain MRI 12/04/17 0000 Signed Impressions: Service Date/Time: Monday, December 04, 2017 20:36 - CONCLUSION: 1. Small punctate areas of signal abnormality in the posterior left temporal lobe which may represent small focal areas of acute infarction. 2. Several areas of signal abnormality in the basal ganglia and left posterior temporal lobes likely from prior hemorrhage. 3. Demyelination within the cerebral and pontine white matter likely from small vessel ischemic change. Anam Donis MD Objective Remarks General - elderly lady, intubated and sedated, arousable, ill-appearing HEENT - pupils are equal, and reactive, sclerae are anicteric, neck is supple, no rigidity, + JVD, + ETT, + NGT, right subclavian line in place -site is clean CV - irregular heart sounds, no murmurs Chest - still has scattered coarse breath sounds b/l, good air entry, no wheezes Abdomen - soft, nondistended, non-tender, BS present Extremities - warm, 1+ edema over both upper and lower extremities, + peripheral pulses Neuro - intubated, sedated, arousable and follows some commands but patient remains very weak, does not move left upper extremity, wiggles toes bilateral and squeezes fingers with the right hand A/P Problem List: (1) Acute metabolic encephalopathy ICD Code: G93.41 - Metabolic encephalopathy Status: Acute (2) Paroxysmal atrial fibrillation with rapid ventricular response ICD Code: I48.0 - Paroxysmal atrial fibrillation Status: Acute (3) Lactic acidemia ICD Code: E87.2 - Acidosis Status: Acute (4) Cardiomyopathy ICD Code: I42.9 - Cardiomyopathy, unspecified Status: Chronic (5) Non-ST elevation [place] (NSTEMI) ICD Code: I21.4 - Non-ST elevation (NSTEMI) myocardial infarction Status: Acute (6) Severe sepsis ICD Code: A41.9 - Sepsis, unspecified organism; R65.20 - Severe sepsis without septic shock Status: Acute (7) Altered mental status ICD Code: R41.82 - Altered mental status, unspecified Status: Acute (8) Hypertension ICD Code: I10 - Hypertension Status: Chronic (9) LAI (acute kidney injury) ICD Code: N17.9 - Acute kidney failure, unspecified Status: Acute (10) Metabolic acidosis ICD Code: E87.2 - Acidosis Status: Acute Assessment and Plan 1. Acute encephalopathy -very slowly improving, but patient remains weak 2. Ischemic stroke 3. Acute respiratory failure from lack of airway protection, on minimal O2 requirement 4. NSTEMI 5. Cardiomyopathy, with reduced EF, possible viral myocarditis 6. Atrial fibrillation with RVR -heart rate better controlled 7. Circulatory shock -patient remains off pressors 8. LAI -creatinine improving, urine output is appropriate 9. Severe metabolic acidosis - resolved 10. Volume overload -positive more than 11 L since admission, improved with diuresis 11. Elevated liver enzymes -gradually trending down 12. Worsening leukocytosis 1. Continue PRVC at current vent settings. PIP of 20, FiO2 of 0.4, patient is synchronized with the vent, no auto PEEP 2. Vent bundle and bronchodilators 3. Sedation vacation and will reattempt CPAP trial today 4. Amiodarone changed to p.o. 5. Continue metoprolol 6. Continue diuresis with Lasix 7. On heparin drip 8. Off antibiotics per ID 9. Central line right subclavian (12/05) and left radial art line 10. GI and DVT prophylaxis addressed 11. On tube feeds 12. Send blood cultures, urine culture, sputum culture. If diarrhea, send C diff No family present at bedside. Problem Qualifiers (1) Altered mental status: (2) Hypertension: Qualified Codes: I10 - Essential (primary) hypertension Kiel Hernandez MD Dec 12, 2017 09:31
[2017-12-12] MEDS: AMIODARONE 200 MG TAB PO SCH ×2 (11:05→20:14)
[2017-12-12] MEDS: FAMOTIDINE 20 MG TAB PO SCH ×2 (11:05→20:13)
[2017-12-12] MEDS: ASPIRIN 81 MG CHEW TAB NG SCH (11:06)
[2017-12-12] MEDS: SODIUM CHLORIDE FLUSH BID IV FLUSH SCH ×2 (11:06→20:17)
[2017-12-12] MEDS: FUROSEMIDE 40 MG/4 ML VIAL IV PUSH SCH ×2 (11:06→19:17)
[2017-12-12] MEDS: THIAMINE INJ 100 MG in SODIUM CHLORIDE 0.9% INJ 100 ML IV SCH (19:17)
[2017-12-12 19:27] LABS: BILIRUBIN, URINE NEG (NEG); BLOOD, URINE LARGE (NEG); GLUCOSE,URINE NEG (NEG); HYALINE CAST, URINE 36 /lpf (RARE); KETONE, URINE NEG (NEG); MUCUS URINE FEW /lpf (OCC); NITRITE,URINE NEG (NEG); PH, URINE 5.5 (5.0-8.5); SQUAMOUS EPITHELIAL CELL URINE 3 /hpf (0-5); URINE LEUKOCYTE ESTERASE SMALL (NEG)
[2017-12-12 19:29] LABS: URINE COLOR LIGHT-RED (YELLW/STRAW)
[2017-12-13] VITALS (16 sets, daily range): BP systolic 96–151; BP diastolic 60–73; PULSE 65–109; RESP 15–24; TEMP 98.1–99.9; O2SAT 82–100
[2017-12-13] MEDS: METOPROLOL TARTRATE 25 MG TAB PO SCH ×4 (02:41→20:31)
[2017-12-13] MEDS: PROPOFOL 1000 MG/100 ML INJ 100 ML IV PRN ×2 (02:42→13:46)
[2017-12-13] MEDS: INSULIN NovoLIN REGULAR SUPPLEMENTAL SCALE SQ SCH ×4 (04:00→22:00)
[2017-12-13] MEDS: CHLORHEXIDINE GLUCONATE 2 % 1 PACK (2 CLOTHS) TOP SCH (04:00)
[2017-12-13 05:08] LABS: AUTOMATED NEUTROPHIL # 9.1 TH/MM3 (1.8-7.7); BASOPHIL % 0.3 % (0.0-2.0); EOSINOPHIL # 0.2 TH/MM3 (0-0.4); HEMATOCRIT 25.5 % (35.0-46.0); HEMOGLOBIN 8.5 GM/DL (11.6-15.3); LYMPH % 11.9 % (9.0-44.0); LYMPHOCYTE # 1.4 TH/MM3 (1.0-4.8); MEAN CELL VOLUME 83.8 FL (80.0-100.0); MEAN CORPUSCULAR HEMOGLOBIN 28.1 PG (27.0-34.0); MEAN CORPUSCULAR HGB CONC 33.5 % (32.0-36.0); MEAN PLATELET VOLUME 9.7 FL (7.0-11.0); MONO % 6.2 % (0.0-8.0); MONOCYTE # 0.7 TH/MM3 (0-0.9); NEUT % 79.6 % (16.0-70.0); PLATELET COUNT 136 TH/MM3 (150-450); RED BLOOD COUNT 3.04 MIL/MM3 (4.00-5.30); RED CELL DISTRIBUTION WIDTH 12.8 % (11.6-17.2); WHITE BLOOD COUNT 11.4 TH/MM3 (4.0-11.0)
[2017-12-13 05:37] LABS: ALBUMIN 2.1 GM/DL (3.4-5.0); AST (GOT) 47 U/L (15-37); BICARBONATE 32.5 MEQ/L (21.0-32.0); BLOOD UREA NITROGEN 54 MG/DL (7-18); CALCIUM 8.2 MG/DL (8.5-10.1); CHLORIDE 103 MEQ/L (98-107); CREATININE 1.36 MG/DL (0.50-1.00); GLOMERULAR FILTRATION RATE 38 ML/MIN (>89); GLUCOSE,RANDOM 113 MG/DL (74-106); SODIUM (NA) 146 MEQ/L (136-145)
[2017-12-13 05:41] LABS: ALKALINE PHOSPHATASE 191 U/L (45-117); ALT (GPT) 103 U/L (10-53); PHOSPHORUS 4.9 MG/DL (2.5-4.9); TOTAL BILIRUBIN ADULT 0.5 MG/DL (0.2-1.0); TOTAL PROTEIN 5.7 GM/DL (6.4-8.2)
[2017-12-13] MEDS: POTASSIUM CHLOR 20 MEQ PREMIX 100 ML IV PRN ×3 (06:24→15:08)
[2017-12-13] MEDS: SODIUM CHLORIDE FLUSH BID IV FLUSH SCH ×2 (09:00→20:31)
[2017-12-13] MEDS: DOCUSATE SODIUM 50 MG/SENNA 8.6 MG TAB PO SCH ×2 (09:00→20:31)
--- NOTE | 2017-12-13 09:42 | HHI.CCPN ---
Subjective Remarks/Hospital Course 77-year-old female who is apparently very active at baseline, with past medical history significant for hypertension and previous TIA, tobacco abuse. She was seen last normal yesterday night at 7 PM. Her friends checked on her today morning and was found down, disoriented, staring off to the left, not answering questions. I am not able to get much further history from her. She has a fever of 101 in the ER, initially and then spiked to 103.7. ER workup included a CT scan of head which was negative for acute findings. Lab work showed a white count of 15.9 with left shift, lactic acid was 3.4, troponin was elevated at 8.7. Cardiology Dr. Meza was contacted aspirin was given patient was recommended to be started on IV heparin but was held for LP. Lumbar puncture was unremarkable nevertheless patient was started on meningitic doses of vancomycin and Rocephin. I have added ampicillin 2 g IV every 4 hours, and acyclovir 680 mg IV every 8 hours. I evaluated the patient in the ICU. Patient is severely altered tachypneic in moderate distress. Patient is aphasic with left gaze preference diminished movements of the right upper and lower extremity. A bedside echo shows reduced EF approximately 20-25%, global hypokinesis. Patient has no history of cardiomyopathy to my knowledge. At this time his stroke cannot be ruled out. Stat MRI MRA had been ordered. Due to altered mentation tachypnea and lack of airway protection patient was intubated and placed on mechanical ventilation SUBJECTIVE: 12/05: Remains intubated sedated. MRI brain showing small punctate areas of signal abnormality in the posterior left temporal lobe-possible small focal areas of acute infarction. Also several areas of signal abnormality in the basal ganglia and left posterior temporal lobes likely from prior hemorrhage. Demyelination within the cerebral and pontine white matter likely from small vessel ischemic change. Neurology consult. Stat EEG is pending. Fever is down trending afebrile now, developed atrial fibrillation with RVR started on amiodarone infusion. I have resumed heparin infusion. 12/06: Afebrile. Last evening the patient had decreased mat requiring additional pressor support vasopressin added to medication regimen and diminished urinary output. Patient was noted to have significant elevation in creatinine this a.m. Patient remains on vasopressin and norepinephrine vasopressor support. Patient continues on amiodarone infusion, plan to transition to p.o.. Sedation vacation initiated yesterday for EEG, per report patient following commands. Sedation vacation in progress at this time. Noticed slight elevation in WBC count, repeat urine culture pending. 12/07: Remains intubated sedated. Currently on IV heparin infusion, amiodarone infusion and vasopressin gtt to maintain MAP >65. Had developed acute kidney injury yesterday creatinine had bumped to 2. Urine output 550 mL in the last 24 hours. CMP today is pending. On sedation hold patient opens eyes weakly moves extremities do not follow commands. Remains severely encephalopathy 12/08: No events over the night. Patient remains encephalopathic, opens eyes to voice stimuli, but does not consistently follow commands. She remains on amiodarone and heparin infusions, no pressors. T-max of 99.6. I/O 2250/960, more than 11 L positive since admission if correctly documented. 12/09: Few episodes of A. fib with RVR over the night. T-max of 99.1. Patient remains intubated and sedated. No family present at bedside. 12/10: No events over the night. Patient is more awake this a.m. 30 with propofol. Good response to diuresis, T-max 100.1. In telemetry, patient currently in sinus rhythm and she continues to be on amiodarone infusion. 12/11: No events over the night. T-max of 100.2. On 35 off propofol this morning, arousable, following some commands. Diuresing well with Lasix. She remains in sinus rhythm. 12/12: Patient remains intubated and sedated, on propofol at 35. Yesterday patient tolerated CPAP trials for a little less than 2 hours. Afebrile, with a T-max of 99.8. I/O 2069/2099. Patient is arousable, tracking, following some commands. 12/13: No events over the night. T-max of 99.9. Patient is awake, on some sedation, following some commands. Urine dark with some sediment. ROS -unobtainable, since patient is intubated. Objective Vital Signs Date Time Temp Pulse Resp B/P (MAP) Pulse Ox O2 Delivery O2 Flow Rate FiO2 12/13/17 08:30 100 30 12/13/17 06:00 70 12/13/17 04:00 98.1 15 130/60 (83) 12/10/17 07:59 Ventilator Intake and Output 12/13/17 12/13/17 12/14/17 08:00 16:00 00:00 Intake Total 1765 ml Output Total 700 ml Balance 1065 ml Result Diagram: 12/13/17 0430 12/13/17 0430 Other Results Microbiology Date/Time Source Procedure Growth Status 12/12/17 07:29 Blood Peripheral Aerobic Blood Culture Pending Received 12/12/17 07:29 Blood Peripheral Anaerobic Blood Culture Pending Received 12/12/17 07:20 Blood Peripheral Aerobic Blood Culture Pending Received 12/12/17 07:20 Blood Peripheral Anaerobic Blood Culture Pending Received 12/12/17 12:00 Sputum Endotracheal Gram Stain - Final Resulted 12/12/17 12:00 Sputum Endotracheal Sputum Culture Pending Resulted 12/12/17 17:30 Urine Clean Catch Urine Culture Pending Received Imaging Last 24 hours Impressions Chest X-Ray 12/12/17 0000 Signed Impressions: Service Date/Time: Tuesday, December 12, 2017 06:50 - CONCLUSION: No significant change has occurred. Philippe Peters MD Last 24 hours Impressions Chest X-Ray 12/10/17 0600 Signed Impressions: Service Date/Time: November 03:55 - CONCLUSION: 1. Right basilar density unchanged likely small pleural effusion and associated density. 2. Cardiomegaly. Gideon Lin MD Last 24 hours Impressions Chest X-Ray 12/08/17 0600 Signed Impressions: Service Date/Time: Friday, December 08, 2017 03:05 - CONCLUSION: 1. Endotracheal tube and nasogastric tube in satisfactory position. Mild basilar airspace disease persists. Shay Rausch MD Last Impressions Chest X-Ray 12/05/17 0000 Signed Impressions: Service Date/Time: Tuesday, December 05, 2017 13:23 - CONCLUSION: 1. Interval placement of a right subclavian central venous catheter with the tip projecting over the central venous system. No pneumothorax 2. Lungs remain hyperinflated with probable bibasilar atelectasis. 3. Compensated cardiomegaly. Mahendra Poe MD Chest CT 12/04/17 1154 Signed Impressions: Service Date/Time: Monday, December 04, 2017 12:43 - CONCLUSION: Probable mild congestive failure with trace pleural effusions. No evidence for mass. Jean-Paul Hoffmann MD FACR Head CT 12/04/17 1126 Signed Impressions: Service Date/Time: Monday, December 04, 2017 12:37 - CONCLUSION: Stable brain appearance. No acute intracranial findings Anam Rojas MD Neck Magnetic Resonance Angiography 12/04/17 0000 Signed Impressions: Service Date/Time: Monday, December 04, 2017 20:36 - CONCLUSION: 1. Mild plaque at the right carotid bulb/proximal internal carotid artery without significant stenosis. 2. Significant opacification of the aortic arch and origins of the great vessels is not present. These areas cannot be evaluated. Anam Donis MD Head Magnetic Resonance Angiography 12/04/17 0000 Signed Impressions: Service Date/Time: Monday, December 04, 2017 20:36 - CONCLUSION: No acute disease. Anam Donis MD Brain MRI 12/04/17 0000 Signed Impressions: Service Date/Time: Monday, December 04, 2017 20:36 - CONCLUSION: 1. Small punctate areas of signal abnormality in the posterior left temporal lobe which may represent small focal areas of acute infarction. 2. Several areas of signal abnormality in the basal ganglia and left posterior temporal lobes likely from prior hemorrhage. 3. Demyelination within the cerebral and pontine white matter likely from small vessel ischemic change. Anam Donis MD Objective Remarks General - elderly lady, intubated, sedated, arousable, ill-appearing HEENT - pupils equal and reactive, sclerae anicteric, neck supple, + JVD, + ETT , + NGT, right subclavian line in place -site clean CV - irregular S1 and S2, no murmurs appreciated Chest - scattered coarse breath sounds b/l, good air entry, no wheezes Abdomen - soft, nondistended, non-tender, BS present Extremities - 1+ edema over both upper and lower extremities, + peripheral pulses, warm and well-perfused extremities Neuro - intubated, awake, follows some commands, wiggles toes and squeezes fingers bilaterally, right stronger than left A/P Problem List: (1) Acute metabolic encephalopathy ICD Code: G93.41 - Metabolic encephalopathy Status: Acute (2) Paroxysmal atrial fibrillation with rapid ventricular response ICD Code: I48.0 - Paroxysmal atrial fibrillation Status: Acute (3) Lactic acidemia ICD Code: E87.2 - Acidosis Status: Acute (4) Cardiomyopathy ICD Code: I42.9 - Cardiomyopathy, unspecified Status: Chronic (5) Non-ST elevation [place] (NSTEMI) ICD Code: I21.4 - Non-ST elevation (NSTEMI) myocardial infarction Status: Acute (6) Severe sepsis ICD Code: A41.9 - Sepsis, unspecified organism; R65.20 - Severe sepsis without septic shock Status: Acute (7) Altered mental status ICD Code: R41.82 - Altered mental status, unspecified Status: Acute (8) Hypertension ICD Code: I10 - Hypertension Status: Chronic (9) LAI (acute kidney injury) ICD Code: N17.9 - Acute kidney failure, unspecified Status: Acute (10) Metabolic acidosis ICD Code: E87.2 - Acidosis Status: Acute Assessment and Plan 1. Acute encephalopathy -very slowly improving, but patient remains weak 2. Ischemic stroke 3. Acute respiratory failure from lack of airway protection, on minimal O2 requirement, not consistently tolerating CPAP trials 4. NSTEMI 5. Cardiomyopathy, with reduced EF, possible viral myocarditis 6. Atrial fibrillation with RVR -heart rate better controlled 7. Circulatory shock -patient remains off pressors 8. LAI -creatinine improving, urine output is appropriate 9. Severe metabolic acidosis - resolved 10. Volume overload -positive more than 11 L since admission, improved with diuresis 11. Elevated liver enzymes -gradually trending down 12. Worsening leukocytosis -patient remains afebrile 1. Continue PRVC at current vent settings. PIP of 21, FiO2 of 0.4, patient is synchronized with the vent, no auto PEEP 2. Vent bundle and bronchodilators 3. Stop sedation and we will attempt CPAP again 4. Amiodarone changed to p.o. 5. Continue metoprolol 6. Stop Lasix since patient is developing contraction alkalosis, BUN and creatinine trending up. Gentle IV hydration with LR at 50 mL's per hour 7. On heparin drip 8. Off antibiotics per ID 9. Central line right subclavian (12/05) 10. GI and DVT prophylaxis addressed 11. On tube feeds No family present at bedside. Problem Qualifiers (1) Altered mental status: (2) Hypertension: Qualified Codes: I10 - Essential (primary) hypertension Kiel Hernandez MD Dec 13, 2017 09:42
[2017-12-13] MEDS: LACTATED RINGER'S 1000 ML INJ 1,000 ML IV SCH (10:22)
[2017-12-13] MEDS: ASPIRIN 81 MG CHEW TAB NG SCH (10:23)
[2017-12-13] MEDS: FAMOTIDINE 20 MG TAB PO SCH ×2 (10:23→20:31)
[2017-12-13] MEDS: AMIODARONE 200 MG TAB PO SCH ×2 (10:23→20:31)
--- NOTE | 2017-12-13 11:40 | HHI.PR ---
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 12/09 more responsive follows all simple commands, moves 4 limbs on request points to mouth, discomfort from tube icu care and monitor neuro, repeat mri brain when extubated 12/11 alert and follows all simple commands mildly anxious because of endotracheal tube moves 4 limbs on request MRI brain follow up next week when extubated dr Mccray will cover neuro care Subjective Subjective Comments No acute events reported chart reviewed and pt examined Active Medications Current Medications Medications (Trade) Dose Ordered Sig/April Route Start Time Stop Time Status Last Admin (Duoneb Neb) 1 ampule Q2HR NEB PRN INH 12/04/17 14:00 12/12/17 04:29 Miscellaneous Information 1 Q361D XX 12/04/17 14:00 (Chlorhexidine 2% Cloth) Taper DAILY@04 TOP 12/05/17 04:00 12/01/18 03:59 12/13/17 04:00 (Chlorhexidine 2% Cloth) 3 pack UNSCH PRN TOP 12/04/17 14:00 (Mera-Colace) 1 tab BID PO 12/04/17 21:00 12/12/17 20:13 (Milk Of Magnesia Liq) 30 ml Q12H PRN PO 12/04/17 14:00 (Senokot) 17.2 mg Q12H PRN PO 12/04/17 14:00 (Dulcolax Supp) 10 mg DAILY PRN RECTAL 12/04/17 14:00 (Lactulose Liq) 30 ml DAILY PRN PO 12/04/17 14:00 (D50w (Vial) Inj) 50 ml UNSCH PRN IV PUSH 12/04/17 14:00 (Glucagon Inj) 1 mg UNSCH PRN OTHER 12/04/17 14:00 Thiamine HCl 100 mg/Sodium Chloride 101 ml @ 101 mls/hr DAILY@1800 IV 12/04/17 18:00 12/12/17 19:17 (Peridex 0.12% Liq) 15 ml BID@08,20 MT 12/04/17 20:00 12/12/17 20:00 Propofol 100 ml @ 2.04 mls/hr TITRATE PRN IV 12/04/17 17:30 12/13/17 02:42 (NS Flush) 2 ml UNSCH PRN IVF 12/05/17 04:15 12/09/17 08:01 (NS Flush) 2 ml BID IV FLUSH 12/05/17 09:00 12/12/17 20:17 Heparin Sodium/ Dextrose 250 ml @ 7.72 mls/hr TITRATE PRN IV 12/05/17 07:00 12/12/17 20:16 (Pepcid) 10 mg Q12HR PO 12/06/17 09:00 12/13/17 10:23 (Aspirin Chew) 81 mg DAILY NG 12/07/17 09:00 12/13/17 10:23 Potassium Chloride 100 ml @ 50 mls/hr Q2H PRN IV 12/09/17 08:00 Potassium Chloride 100 ml @ 50 mls/hr Q2H PRN IV 12/09/17 08:00 12/13/17 10:27 (K-Lyte Cl Eff) 50 meq UNSCH PRN PO 12/09/17 08:00 Potassium Chloride 100 ml @ 25 mls/hr UNSCH PRN IV 12/09/17 08:00 Potassium Chloride 100 ml @ 50 mls/hr Q2H PRN IV 12/09/17 08:00 12/09/17 10:23 Magnesium Sulfate 4 gm/Sodium Chloride 100 ml @ 50 mls/hr UNSCH PRN IV 12/09/17 08:00 (Mag-Ox) 800 mg UNSCH PRN PO 12/09/17 08:00 Magnesium Sulfate 2 gm/Sodium Chloride 100 ml @ 50 mls/hr UNSCH PRN IV 12/09/17 08:00 (K-Phos) 2,000 mg Q4H PRN PO 12/09/17 08:00 Sodium Phosphate 30 mmol/Sodium Chloride 250 ml @ 42 mls/hr UNSCH PRN IV 12/09/17 08:00 (K-Phos) 2,000 mg UNSCH PRN PO/TUBE 12/09/17 08:00 Potassium Phosphate 30 mmol/ Sodium Chloride 260 ml @ 42 mls/hr UNSCH PRN IV 12/09/17 08:00 (NovoLIN R SUPPLEMENTAL SCALE) 1 Q6H SQ 12/09/17 10:00 (Lopressor) 25 mg Q6H PO 12/09/17 14:00 12/13/17 10:23 (Cordarone) 400 mg Q12HR PO 12/11/17 21:00 12/13/17 10:23 Lactated Ringer's 1,000 ml @ 50 mls/hr Q20H IV 12/13/17 07:30 12/13/17 10:22 Allergies Allergies Coded Allergies doxycycline (Unverified Allergy, Severe, 12/04/17) minocycline (Unverified Allergy, Severe, 12/04/17) tigecycline (Unverified Allergy, Severe, 12/04/17) Exam I&O / VS Vital Signs Date Time Temp Pulse Resp B/P (MAP) Pulse Ox O2 Delivery O2 Flow Rate FiO2 12/13/17 08:30 100 30 12/13/17 06:00 70 12/13/17 04:19 100 30 12/13/17 04:00 69 12/13/17 04:00 30 12/13/17 04:00 98.1 65 15 130/60 (83) 100 12/13/17 02:00 68 12/13/17 00:36 100 30 12/13/17 00:00 109 12/13/17 00:00 30 12/13/17 00:00 99.9 109 24 96/63 (74) 82 12/12/17 22:00 72 12/12/17 20:03 95 30 12/12/17 20:00 81 12/12/17 20:00 99.1 81 21 147/65 93 12/12/17 20:00 30 12/12/17 18:00 80 12/12/17 16:35 95 30 12/12/17 16:00 79 12/12/17 16:00 98.9 79 28 143/92 (109) 94 12/12/17 16:00 30 12/12/17 14:00 78 12/12/17 12:59 35 12/12/17 12:59 100 35 12/12/17 12:00 72 12/12/17 12:00 99.1 72 25 141/66 (91) 95 12/12/17 12:00 30 Exam Comments opens eyes to voice and follow simple commands. PERRL MOTOR---5/5 strength BUE and BLE Objective Micro and Labs Laboratory Tests Test 12/12/17 14:00 12/12/17 17:30 12/12/17 22:27 12/13/17 04:30 Stool C. difficile Toxin (PCR) NEGATIVE Stl C. difficile Toxin Epiderm 027 PRESUMPTIVE NEGATIVE Urine Color LIGHT-RED Urine Turbidity HAZY Urine pH 5.5 Urine Specific [place] 1.015 Urine Protein 30 Urine Glucose (UA) NEG Urine Ketones NEG Urine Occult Blood LARGE Urine Nitrite NEG Urine Bilirubin NEG Urine Urobilinogen LESS THAN 2.0 Urine Leukocyte Esterase SMALL Urine RBC Urine WBC 29 Urine Squamous Epithelial Cells 3 Urine Hyaline Casts 36 Urine Mucus FEW Urine Yeast (Budding) FEW Microscopic Urinalysis Comment CULTURE INDICATED Activated Partial Thromboplast Time 57.5 White Blood Count 11.4 Red Blood Count 3.04 Hemoglobin 8.5 Hematocrit 25.5 Mean Corpuscular Volume 83.8 Mean Corpuscular Hemoglobin 28.1 Mean Corpuscular Hemoglobin Concent 33.5 Red Cell Distribution Width 12.8 Platelet Count 136 Mean Platelet Volume 9.7 Neutrophils (%) (Auto) 79.6 Lymphocytes (%) (Auto) 11.9 Monocytes (%) (Auto) 6.2 Eosinophils (%) (Auto) 2.0 Basophils (%) (Auto) 0.3 Neutrophils # (Auto) 9.1 Lymphocytes # (Auto) 1.4 Monocytes # (Auto) 0.7 Eosinophils # (Auto) 0.2 Basophils # (Auto) 0.0 CBC Comment AUTO DIFF Differential Comment AUTO DIFF CONFIRMED Blood Urea Nitrogen 54 Creatinine 1.36 Random Glucose 113 Total Protein 5.7 Albumin 2.1 Calcium Level 8.2 Phosphorus Level 4.9 Magnesium Level 2.0 Alkaline Phosphatase 191 Aspartate Amino Transf (AST/SGOT) 47 Alanine Aminotransferase (ALT/SGPT) 103 Total Bilirubin 0.5 Sodium Level 146 Potassium Level 3.2 Chloride Level 103 Carbon Dioxide Level 32.5 Anion Gap 11 Estimat Glomerular Filtration Rate 38 Date/Time Source Procedure Growth Status 12/12/17 07:29 Blood Peripheral Aerobic Blood Culture - Preliminary NO GROWTH IN 1 DAY Resulted 12/12/17 07:29 Blood Peripheral Anaerobic Blood Culture - Preliminary NO GROWTH IN 1 DAY Resulted 12/04/17 14:50 Cerebral Spinal Fluid Lumbar Puncture Fungal Smear - Final NO FUNGAL ELEMENTS SEEN. Resulted 12/04/17 14:50 Cerebral Spinal Fluid Lumbar Puncture Fungal Culture - Preliminary NO GROWTH IN 1 WEEK Resulted 12/12/17 12:00 Sputum Endotracheal Gram Stain - Final Resulted 12/12/17 12:00 Sputum Endotracheal Sputum Culture Pending Resulted 12/12/17 17:30 Urine Clean Catch Urine Culture - Preliminary NO GROWTH IN 24 HOURS. Resulted Nicholas Mccray MD PhD Dec 13, 2017 11:40
[2017-12-13] MEDS: HEPARIN-D5W 25,000 U/250 ML 250 ML IV PRN (15:14)
[2017-12-13] MEDS: DEXMEDETOMIDINE INJ 200 MCG in SODIUM CHLORIDE 0.9% INJ 50 ML IV PRN ×2 (17:00→23:39)
[2017-12-13] MEDS: CHLORHEXIDINE 0.12% (ORAL KIT) 15 ML CUP MT SCH ×2 (20:00→20:27)
[2017-12-13] MEDS: THIAMINE INJ 100 MG in SODIUM CHLORIDE 0.9% INJ 100 ML IV SCH (20:28)
[2017-12-14] VITALS (24 sets, daily range): BP systolic 110–137; BP diastolic 53–65; PULSE 53–79; RESP 11–31; TEMP 98.5–100; O2SAT 100
[2017-12-14] MEDS: METOPROLOL TARTRATE 25 MG TAB PO SCH ×4 (02:00→20:00)
--- NOTE | 2017-12-14 02:38 | RADRPT ---
EXAM DATE/TIME: 12/14/2017 01:38 [facility] COMPARISON: CHEST SINGLE AP, December 12, 2017, 6:50. INDICATIONS : Shortness of breath, possible pulmonary disease. MEDICAL HISTORY : Hypertension. SURGICAL HISTORY : None. ENCOUNTER: Subsequent ACUITY: 1 week PAIN SCORE: Non-responsive. LOCATION: Bilateral chest FINDINGS: A single view of the chest demonstrates some improved aeration in the left base. Persistent right bas ilar consolidation/effusion. Heart size is prominent. Life support tubes are all stable including a r ight subclavian central venous catheter, endotracheal and nasogastric tube. Medullary malaika and osseous screws in the right humerus. CONCLUSION: 1. Improving aeration in the left base with some minimal atelectatic changes. 2. Right basilar consolidation and associated effusion may also be slightly better. 3. Stable cardiomegaly. Stable position of life support tubes Mahendra Poe MD on December 14, 2017 at 2:34 Board Certified Radiologist. This report was verified electronically.
[2017-12-14] MEDS: INSULIN NovoLIN REGULAR SUPPLEMENTAL SCALE SQ SCH ×4 (04:00→22:00)
[2017-12-14] MEDS: CHLORHEXIDINE GLUCONATE 2 % 1 PACK (2 CLOTHS) TOP SCH (04:00)
[2017-12-14 04:21] LABS: AUTOMATED NEUTROPHIL # 7.3 TH/MM3 (1.8-7.7); BASOPHIL % 0.3 % (0.0-2.0); EOSINOPHIL # 0.2 TH/MM3 (0-0.4); EOSINOPHIL % 1.9 % (0.0-4.0); HEMATOCRIT 25.6 % (35.0-46.0); HEMOGLOBIN 8.5 GM/DL (11.6-15.3); LYMPH % 12.4 % (9.0-44.0); LYMPHOCYTE # 1.2 TH/MM3 (1.0-4.8); MEAN CELL VOLUME 83.2 FL (80.0-100.0); MEAN CORPUSCULAR HEMOGLOBIN 27.5 PG (27.0-34.0); MEAN CORPUSCULAR HGB CONC 33.1 % (32.0-36.0); MEAN PLATELET VOLUME 9.8 FL (7.0-11.0); MONO % 7.7 % (0.0-8.0); MONOCYTE # 0.7 TH/MM3 (0-0.9); NEUT % 77.7 % (16.0-70.0); PLATELET COUNT 157 TH/MM3 (150-450); RED BLOOD COUNT 3.08 MIL/MM3 (4.00-5.30); RED CELL DISTRIBUTION WIDTH 13.3 % (11.6-17.2); WHITE BLOOD COUNT 9.4 TH/MM3 (4.0-11.0)
[2017-12-14 04:37] LABS: ALBUMIN 2.2 GM/DL (3.4-5.0); AST (GOT) 39 U/L (15-37); BICARBONATE 30.5 MEQ/L (21.0-32.0); BLOOD UREA NITROGEN 51 MG/DL (7-18); CALCIUM 8.9 MG/DL (8.5-10.1); CHLORIDE 104 MEQ/L (98-107); CREATININE 1.36 MG/DL (0.50-1.00); GLOMERULAR FILTRATION RATE 38 ML/MIN (>89); GLUCOSE,RANDOM 117 MG/DL (74-106); MAGNESIUM 2.1 MG/DL (1.5-2.5); SODIUM (NA) 144 MEQ/L (136-145)
[2017-12-14 04:40] LABS: ALKALINE PHOSPHATASE 224 U/L (45-117); ALT (GPT) 102 U/L (10-53); PHOSPHORUS 4.2 MG/DL (2.5-4.9); TOTAL BILIRUBIN ADULT 0.5 MG/DL (0.2-1.0); TOTAL PROTEIN 5.8 GM/DL (6.4-8.2)
[2017-12-14] MEDS: DEXMEDETOMIDINE INJ 200 MCG in SODIUM CHLORIDE 0.9% INJ 50 ML IV PRN ×6 (05:02→23:17)
[2017-12-14] MEDS: LACTATED RINGER'S 1000 ML INJ 1,000 ML IV SCH (05:40)
[2017-12-14] MEDS: FAMOTIDINE 20 MG TAB PO SCH ×2 (08:25→20:48)
[2017-12-14] MEDS: ASPIRIN 81 MG CHEW TAB NG SCH (08:26)
[2017-12-14] MEDS: AMIODARONE 200 MG TAB PO SCH ×2 (08:26→20:48)
[2017-12-14] MEDS: DOCUSATE SODIUM 50 MG/SENNA 8.6 MG TAB PO SCH ×2 (08:29→20:48)
[2017-12-14] MEDS: CHLORHEXIDINE 0.12% (ORAL KIT) 15 ML CUP MT SCH ×2 (09:07→20:00)
[2017-12-14] MEDS: SODIUM CHLORIDE FLUSH BID IV FLUSH SCH ×2 (09:07→20:48)
--- NOTE | 2017-12-14 09:13 | HHI.CCPN ---
Subjective Remarks/Hospital Course 77-year-old female who is apparently very active at baseline, with past medical history significant for hypertension and previous TIA, tobacco abuse. She was seen last normal yesterday night at 7 PM. Her friends checked on her today morning and was found down, disoriented, staring off to the left, not answering questions. I am not able to get much further history from her. She has a fever of 101 in the ER, initially and then spiked to 103.7. ER workup included a CT scan of head which was negative for acute findings. Lab work showed a white count of 15.9 with left shift, lactic acid was 3.4, troponin was elevated at 8.7. Cardiology Dr. Meza was contacted aspirin was given patient was recommended to be started on IV heparin but was held for LP. Lumbar puncture was unremarkable nevertheless patient was started on meningitic doses of vancomycin and Rocephin. I have added ampicillin 2 g IV every 4 hours, and acyclovir 680 mg IV every 8 hours. I evaluated the patient in the ICU. Patient is severely altered tachypneic in moderate distress. Patient is aphasic with left gaze preference diminished movements of the right upper and lower extremity. A bedside echo shows reduced EF approximately 20-25%, global hypokinesis. Patient has no history of cardiomyopathy to my knowledge. At this time his stroke cannot be ruled out. Stat MRI MRA had been ordered. Due to altered mentation tachypnea and lack of airway protection patient was intubated and placed on mechanical ventilation SUBJECTIVE: 12/05: Remains intubated sedated. MRI brain showing small punctate areas of signal abnormality in the posterior left temporal lobe-possible small focal areas of acute infarction. Also several areas of signal abnormality in the basal ganglia and left posterior temporal lobes likely from prior hemorrhage. Demyelination within the cerebral and pontine white matter likely from small vessel ischemic change. Neurology consult. Stat EEG is pending. Fever is down trending afebrile now, developed atrial fibrillation with RVR started on amiodarone infusion. I have resumed heparin infusion. 12/06: Afebrile. Last evening the patient had decreased mat requiring additional pressor support vasopressin added to medication regimen and diminished urinary output. Patient was noted to have significant elevation in creatinine this a.m. Patient remains on vasopressin and norepinephrine vasopressor support. Patient continues on amiodarone infusion, plan to transition to p.o.. Sedation vacation initiated yesterday for EEG, per report patient following commands. Sedation vacation in progress at this time. Noticed slight elevation in WBC count, repeat urine culture pending. 12/07: Remains intubated sedated. Currently on IV heparin infusion, amiodarone infusion and vasopressin gtt to maintain MAP >65. Had developed acute kidney injury yesterday creatinine had bumped to 2. Urine output 550 mL in the last 24 hours. CMP today is pending. On sedation hold patient opens eyes weakly moves extremities do not follow commands. Remains severely encephalopathy 12/08: No events over the night. Patient remains encephalopathic, opens eyes to voice stimuli, but does not consistently follow commands. She remains on amiodarone and heparin infusions, no pressors. T-max of 99.6. I/O 2250/960, more than 11 L positive since admission if correctly documented. 12/09: Few episodes of A. fib with RVR over the night. T-max of 99.1. Patient remains intubated and sedated. No family present at bedside. 12/10: No events over the night. Patient is more awake this a.m. 30 with propofol. Good response to diuresis, T-max 100.1. In telemetry, patient currently in sinus rhythm and she continues to be on amiodarone infusion. 12/11: No events over the night. T-max of 100.2. On 35 off propofol this morning, arousable, following some commands. Diuresing well with Lasix. She remains in sinus rhythm. 12/12: Patient remains intubated and sedated, on propofol at 35. Yesterday patient tolerated CPAP trials for a little less than 2 hours. Afebrile, with a T-max of 99.8. I/O 2069/2099. Patient is arousable, tracking, following some commands. 12/13: No events over the night. T-max of 99.9. Patient is awake, on some sedation, following some commands. Urine dark with some sediment. 12/14: Patient developed worsening hematuria over the night therefore I stopped heparin drip this morning. Yesterday she tolerated CPAP for approximately 2 hours then she became tachypneic. Sedation was changed to Precedex and propofol was stopped, patient is awake and calm following commands. Still significant amount of sputum secretions. T-max of 99.1. I/O 2485/1125. ROS -unobtainable, since patient is intubated. Objective Vital Signs Date Time Temp Pulse Resp B/P (MAP) Pulse Ox O2 Delivery O2 Flow Rate FiO2 12/14/17 06:00 56 12/14/17 04:00 30 12/14/17 04:00 99.1 16 114/59 (77) 100 12/10/17 07:59 Ventilator Intake and Output 12/14/17 12/14/17 12/15/17 08:00 16:00 00:00 Intake Total 2761 ml Output Total 250 ml Balance 2511 ml Result Diagram: 12/14/17 0400 12/14/17 0400 Other Results Microbiology Date/Time Source Procedure Growth Status 12/12/17 17:30 Urine Clean Catch Urine Culture - Final NO GROWTH IN 48 HOURS. Complete Imaging Last 24 hours Impressions Chest X-Ray 12/14/17 06 Signed Impressions: Service Date/Time: Thursday, December 14, 2017 01:38 - CONCLUSION: 1. Improving aeration in the left base with some minimal atelectatic changes. 2. Right basilar consolidation and associated effusion may also be slightly better. 3. Stable cardiomegaly. Stable position of life support tubes Mahendra Poe MD Last 24 hours Impressions Chest X-Ray 12/12/17 0000 Signed Impressions: Service Date/Time: Tuesday, December 12, 2017 06:50 - CONCLUSION: No significant change has occurred. Philippe Peters MD Last 24 hours Impressions Chest X-Ray 12/10/17 0600 Signed Impressions: Service Date/Time: November 03:55 - CONCLUSION: 1. Right basilar density unchanged likely small pleural effusion and associated density. 2. Cardiomegaly. Gideon Lin MD Last 24 hours Impressions Chest X-Ray 12/08/17 0600 Signed Impressions: Service Date/Time: Friday, December 08, 2017 03:05 - CONCLUSION: 1. Endotracheal tube and nasogastric tube in satisfactory position. Mild basilar airspace disease persists. Shay Rausch MD Last Impressions Chest X-Ray 12/05/17 0000 Signed Impressions: Service Date/Time: Tuesday, December 05, 2017 13:23 - CONCLUSION: 1. Interval placement of a right subclavian central venous catheter with the tip projecting over the central venous system. No pneumothorax 2. Lungs remain hyperinflated with probable bibasilar atelectasis. 3. Compensated cardiomegaly. Mahendra Poe MD Chest CT 12/04/17 1154 Signed Impressions: Service Date/Time: Monday, December 04, 2017 12:43 - CONCLUSION: Probable mild congestive failure with trace pleural effusions. No evidence for mass. Jean-Paul Hoffmann MD FACR Head CT 12/04/17 1126 Signed Impressions: Service Date/Time: Monday, December 04, 2017 12:37 - CONCLUSION: Stable brain appearance. No acute intracranial findings Anam Rojas MD Neck Magnetic Resonance Angiography 12/04/17 0000 Signed Impressions: Service Date/Time: Monday, December 04, 2017 20:36 - CONCLUSION: 1. Mild plaque at the right carotid bulb/proximal internal carotid artery without significant stenosis. 2. Significant opacification of the aortic arch and origins of the great vessels is not present. These areas cannot be evaluated. Anam Donis MD Head Magnetic Resonance Angiography 12/04/17 0000 Signed Impressions: Service Date/Time: Monday, December 04, 2017 20:36 - CONCLUSION: No acute disease. Anam Donis MD Brain MRI 12/04/17 0000 Signed Impressions: Service Date/Time: Monday, December 04, 2017 20:36 - CONCLUSION: 1. Small punctate areas of signal abnormality in the posterior left temporal lobe which may represent small focal areas of acute infarction. 2. Several areas of signal abnormality in the basal ganglia and left posterior temporal lobes likely from prior hemorrhage. 3. Demyelination within the cerebral and pontine white matter likely from small vessel ischemic change. Anam Donis MD Objective Remarks General - elderly lady, awake, intubated, ill-appearing, weak HEENT - pupils are equal and reactive, sclerae are anicteric, neck is supple, neck veins are distended, + ETT, + NGT, right subclavian line in place -site remains clean CV - irregular heart sounds, no murmurs, rubs or gallop Chest - still has scattered coarse breath sounds b/l, good air entry, no wheezes Abdomen - soft, non-distended, non-tender, BS present Extremities - 1+ edema over both upper and lower extremities, + peripheral pulses, warm Neuro - intubated, awake, follows some commands, wiggles toes and squeezes fingers bilaterally, right stronger than left A/P Problem List: (1) Acute metabolic encephalopathy ICD Code: G93.41 - Metabolic encephalopathy Status: Acute (2) Paroxysmal atrial fibrillation with rapid ventricular response ICD Code: I48.0 - Paroxysmal atrial fibrillation Status: Acute (3) Lactic acidemia ICD Code: E87.2 - Acidosis Status: Acute (4) Cardiomyopathy ICD Code: I42.9 - Cardiomyopathy, unspecified Status: Chronic (5) Non-ST elevation FL (NSTEMI) ICD Code: I21.4 - Non-ST elevation (NSTEMI) myocardial infarction Status: Acute (6) Severe sepsis ICD Code: A41.9 - Sepsis, unspecified organism; R65.20 - Severe sepsis without septic shock Status: Acute (7) Altered mental status ICD Code: R41.82 - Altered mental status, unspecified Status: Acute (8) Hypertension ICD Code: I10 - Hypertension Status: Chronic (9) LAI (acute kidney injury) ICD Code: N17.9 - Acute kidney failure, unspecified Status: Acute (10) Metabolic acidosis ICD Code: E87.2 - Acidosis Status: Acute Assessment and Plan 1. Acute encephalopathy -very slowly improving, but she remains weak 2. Ischemic stroke 3. Acute respiratory failure from lack of airway protection, on minimal O2 requirement, attempting CPAP trials every day 4. NSTEMI 5. Cardiomyopathy, with reduced EF, possible viral myocarditis 6. Atrial fibrillation with RVR -heart rate better controlled 7. Circulatory shock -patient remains off pressors 8. LAI -creatinine is improving, urine output is appropriate 9. Severe metabolic acidosis - resolved 10. Volume overload -positive more than 11 L since admission, improved with diuresis 11. Elevated liver enzymes -gradually trending down 12. Hematuria 1. Patient switched to CPAP, 15/5 and 30% O2. Drop pressure support to 12 and 30 minutes. If she tolerates we will attempt extubation today 2. Vent bundle and bronchodilators 3. Continue Precedex 4. Stop heparin due to hematuria 5. Continue metoprolol and amiodarone 6. Stop Lasix since patient is developing contraction alkalosis, BUN and creatinine trending up. Gentle IV hydration with LR at 50 mL's per hour 7. Off antibiotics per ID 8. Central line right subclavian (12/05), arterial line was removed 9. GI and DVT prophylaxis addressed 10. On tube feeds No family present at bedside. Problem Qualifiers (1) Altered mental status: (2) Hypertension: Qualified Codes: I10 - Essential (primary) hypertension Kiel Hernandez MD Dec 14, 2017 09:13
--- NOTE | 2017-12-14 11:49 | PD.CARD.PN ---
Subjective Subjective Remarks On CPAP Objective Medications Current Medications Medications (Trade) Dose Ordered Sig/April Route Start Time Stop Time Status Last Admin (Duoneb Neb) 1 ampule Q2HR NEB PRN INH 12/04/17 14:00 12/12/17 04:29 Miscellaneous Information 1 Q361D XX 12/04/17 14:00 (Chlorhexidine 2% Cloth) Taper DAILY@04 TOP 12/05/17 04:00 12/01/18 03:59 12/14/17 04:00 (Chlorhexidine 2% Cloth) 3 pack UNSCH PRN TOP 12/04/17 14:00 (Mera-Colace) 1 tab BID PO 12/04/17 21:00 12/12/17 20:13 (Milk Of Magnesia Liq) 30 ml Q12H PRN PO 12/04/17 14:00 (Senokot) 17.2 mg Q12H PRN PO 12/04/17 14:00 (Dulcolax Supp) 10 mg DAILY PRN RECTAL 12/04/17 14:00 (Lactulose Liq) 30 ml DAILY PRN PO 12/04/17 14:00 (D50w (Vial) Inj) 50 ml UNSCH PRN IV PUSH 12/04/17 14:00 (Glucagon Inj) 1 mg UNSCH PRN OTHER 12/04/17 14:00 Thiamine HCl 100 mg/Sodium Chloride 101 ml @ 101 mls/hr DAILY@1800 IV 12/04/17 18:00 12/13/17 20:28 (Peridex 0.12% Liq) 15 ml BID@08,20 MT 12/04/17 20:00 12/14/17 09:07 Propofol 100 ml @ 2.04 mls/hr TITRATE PRN IV 12/04/17 17:30 12/13/17 13:46 (NS Flush) 2 ml UNSCH PRN IVF 12/05/17 04:15 12/09/17 08:01 (NS Flush) 2 ml BID IV FLUSH 12/05/17 09:00 12/14/17 09:07 Heparin Sodium/ Dextrose 250 ml @ 7.72 mls/hr TITRATE PRN IV 12/05/17 07:00 12/13/17 15:14 (Pepcid) 10 mg Q12HR PO 12/06/17 09:00 12/14/17 08:25 (Aspirin Chew) 81 mg DAILY NG 12/07/17 09:00 12/14/17 08:26 Potassium Chloride 100 ml @ 50 mls/hr Q2H PRN IV 12/09/17 08:00 Potassium Chloride 100 ml @ 50 mls/hr Q2H PRN IV 12/09/17 08:00 12/13/17 15:08 (K-Lyte Cl Eff) 50 meq UNSCH PRN PO 12/09/17 08:00 Potassium Chloride 100 ml @ 25 mls/hr UNSCH PRN IV 12/09/17 08:00 Potassium Chloride 100 ml @ 50 mls/hr Q2H PRN IV 12/09/17 08:00 12/09/17 10:23 Magnesium Sulfate 4 gm/Sodium Chloride 100 ml @ 50 mls/hr UNSCH PRN IV 12/09/17 08:00 (Mag-Ox) 800 mg UNSCH PRN PO 12/09/17 08:00 Magnesium Sulfate 2 gm/Sodium Chloride 100 ml @ 50 mls/hr UNSCH PRN IV 12/09/17 08:00 (K-Phos) 2,000 mg Q4H PRN PO 12/09/17 08:00 Sodium Phosphate 30 mmol/Sodium Chloride 250 ml @ 42 mls/hr UNSCH PRN IV 12/09/17 08:00 (K-Phos) 2,000 mg UNSCH PRN PO/TUBE 12/09/17 08:00 Potassium Phosphate 30 mmol/ Sodium Chloride 260 ml @ 42 mls/hr UNSCH PRN IV 12/09/17 08:00 (NovoLIN R SUPPLEMENTAL SCALE) 1 Q6H SQ 12/09/17 10:00 (Lopressor) 25 mg Q6H PO 12/09/17 14:00 12/13/17 20:31 (Cordarone) 400 mg Q12HR PO 12/11/17 21:00 12/14/17 08:26 Lactated Ringer's 1,000 ml @ 50 mls/hr Q20H IV 12/13/17 07:30 12/14/17 05:40 Dexmedetomidine HCl 200 mcg/ Sodium Chloride 52 ml @ 3.82 mls/hr TITRATE PRN IV 12/13/17 15:45 12/14/17 05:51 (fentaNYL INJ) 50 mcg Q2H PRN IV PUSH 12/14/17 09:45 Vital Signs / I&O Vital Signs Date Time Temp Pulse Resp B/P (MAP) Pulse Ox O2 Delivery O2 Flow Rate FiO2 12/14/17 08:00 30 12/14/17 08:00 98.9 60 31 115/58 (77) 100 12/14/17 07:20 100 30 12/14/17 07:20 30 12/14/17 06:00 56 12/14/17 04:00 56 12/14/17 04:00 30 12/14/17 04:00 99.1 56 16 114/59 (77) 100 12/14/17 03:24 100 30 12/14/17 02:00 58 12/14/17 00:42 100 30 12/14/17 00:00 78 12/14/17 00:00 30 12/14/17 00:00 98.8 58 16 110/53 (72) 100 12/13/17 22:00 76 12/13/17 20:00 30 12/13/17 20:00 99.1 78 21 151/65 (93) 98 12/13/17 20:00 78 12/13/17 19:43 100 30 12/13/17 18:00 71 12/13/17 16:00 98.5 70 20 140/73 (95) 100 12/13/17 16:00 30 12/13/17 15:41 50 12/13/17 15:41 100 50 12/13/17 13:03 99 40 12/13/17 12:00 98.7 67 22 130/61 (84) 100 12/13/17 12:00 30 I/O 12/13/17 12/13/17 12/13/17 12/14/17 12/14/17 12/14/17 07:00 15:00 23:00 07:00 15:00 23:00 Intake Total 1765 ml 880 ml 2761 ml Output Total 700 ml 0 ml 875 ml 250 ml Balance 1065 ml 0 ml 5 ml 2511 ml IV Total 1200 ml 2256 ml Tube Feeding 465 ml 580 ml 380 ml Tube Irrigant 200 ml Other 100 ml 100 ml 125 ml Output Urine Total 700 ml 875 ml 250 ml Stool Total 0 ml 0 ml Tube Feeding Residual Discard 0 ml # Bowel Movements 3 Physical Exam on CPAP Following yes no questions Neck no JVD Chest + rhonchi CV: SR Abd soft Ext: slight edema tele: SR Laboratory Laboratory Tests Test 12/13/17 20:45 12/14/17 04:00 Activated Partial Thromboplast Time 35.9 SEC 56.3 SEC Potassium Level 3.9 MEQ/L 4.3 MEQ/L White Blood Count 9.4 TH/MM3 Red Blood Count 3.08 MIL/MM3 Hemoglobin 8.5 GM/DL Hematocrit 25.6 % Mean Corpuscular Volume 83.2 FL Mean Corpuscular Hemoglobin 27.5 PG Mean Corpuscular Hemoglobin Concent 33.1 % Red Cell Distribution Width 13.3 % Platelet Count 157 TH/MM3 Mean Platelet Volume 9.8 FL Neutrophils (%) (Auto) 77.7 % Lymphocytes (%) (Auto) 12.4 % Monocytes (%) (Auto) 7.7 % Eosinophils (%) (Auto) 1.9 % Basophils (%) (Auto) 0.3 % Neutrophils # (Auto) 7.3 TH/MM3 Lymphocytes # (Auto) 1.2 TH/MM3 Monocytes # (Auto) 0.7 TH/MM3 Eosinophils # (Auto) 0.2 TH/MM3 Basophils # (Auto) 0.0 TH/MM3 CBC Comment DIFF FINAL Differential Comment Blood Urea Nitrogen 51 MG/DL Creatinine 1.36 MG/DL Random Glucose 117 MG/DL Total Protein 5.8 GM/DL Albumin 2.2 GM/DL Calcium Level 8.9 MG/DL Phosphorus Level 4.2 MG/DL Magnesium Level 2.1 MG/DL Alkaline Phosphatase 224 U/L Aspartate Amino Transf (AST/SGOT) 39 U/L Alanine Aminotransferase (ALT/SGPT) 102 U/L Total Bilirubin 0.5 MG/DL Sodium Level 144 MEQ/L Chloride Level 104 MEQ/L Carbon Dioxide Level 30.5 MEQ/L Anion Gap 10 MEQ/L Estimat Glomerular Filtration Rate 38 ML/MIN Imaging Last 24 hours Impressions Chest X-Ray 12/14/17 0600 Signed Impressions: Service Date/Time: Thursday, December 14, 2017 01:38 - CONCLUSION: 1. Improving aeration in the left base with some minimal atelectatic changes. 2. Right basilar consolidation and associated effusion may also be slightly better. 3. Stable cardiomegaly. Stable position of life support tubes Mahendra Poe MD Assessment and Plan Problem List: (1) Paroxysmal atrial fibrillation with rapid ventricular response ICD Codes: I48.0 - Paroxysmal atrial fibrillation Status: Acute Plan: Reduce amio to 200mg bid (2) Altered mental status ICD Codes: R41.82 - Altered mental status, unspecified Status: Acute (3) Severe sepsis ICD Codes: A41.9 - Sepsis, unspecified organism; R65.20 - Severe sepsis without septic shock Status: Acute (4) Non-ST elevation [place] (NSTEMI) ICD Codes: I21.4 - Non-ST elevation (NSTEMI) myocardial infarction Status: Acute (5) Cardiomyopathy ICD Codes: I42.9 - Cardiomyopathy, unspecified Status: Chronic (6) CVA (cerebral infarction) ICD Codes: I63.9 - Cerebral infarction Status: Acute (7) Shock liver ICD Codes: K72.00 - Acute and subacute hepatic failure without coma (8) LAI (acute kidney injury) ICD Codes: N17.9 - Acute kidney failure, unspecified Status: Acute Problem Qualifiers (1) Altered mental status: Rich Meza MD Dec 14, 2017 11:49
[2017-12-14] MEDS: THIAMINE INJ 100 MG in SODIUM CHLORIDE 0.9% INJ 100 ML IV SCH (17:37)
[2017-12-14] MEDS: PROPOFOL 1000 MG/100 ML INJ 100 ML IV PRN (20:41)
[2017-12-15] VITALS (38 sets, daily range): BP systolic 109–130; BP diastolic 51–88; PULSE 52–63; RESP 12–25; TEMP 97.8–100.3; O2SAT 92–100
[2017-12-15] MEDS: METOPROLOL TARTRATE 25 MG TAB PO SCH ×4 (02:00→19:31)
[2017-12-15] MEDS: LACTATED RINGER'S 1000 ML INJ 1,000 ML IV SCH ×2 (02:21→19:31)
[2017-12-15] MEDS: DEXMEDETOMIDINE INJ 200 MCG in SODIUM CHLORIDE 0.9% INJ 50 ML IV PRN ×4 (03:00→19:30)
[2017-12-15] MEDS: CHLORHEXIDINE GLUCONATE 2 % 1 PACK (2 CLOTHS) TOP SCH (04:00)
[2017-12-15] MEDS: INSULIN NovoLIN REGULAR SUPPLEMENTAL SCALE SQ SCH ×4 (04:00→22:00)
[2017-12-15 04:14] LABS: AUTOMATED NEUTROPHIL # 7.6 TH/MM3 (1.8-7.7); BASOPHIL # 0.1 TH/MM3 (0-0.2); BASOPHIL % 0.8 % (0.0-2.0); EOSINOPHIL # 0.1 TH/MM3 (0-0.4); EOSINOPHIL % 1.4 % (0.0-4.0); HEMATOCRIT 25.9 % (35.0-46.0); HEMOGLOBIN 8.7 GM/DL (11.6-15.3); LYMPH % 14.7 % (9.0-44.0); LYMPHOCYTE # 1.5 TH/MM3 (1.0-4.8); MEAN CORPUSCULAR HEMOGLOBIN 28.1 PG (27.0-34.0); MEAN CORPUSCULAR HGB CONC 33.4 % (32.0-36.0); MONO % 7.2 % (0.0-8.0); MONOCYTE # 0.7 TH/MM3 (0-0.9); NEUT % 75.9 % (16.0-70.0); PLATELET COUNT 187 TH/MM3 (150-450); RED BLOOD COUNT 3.08 MIL/MM3 (4.00-5.30)
[2017-12-15] MEDS: PROPOFOL 1000 MG/100 ML INJ 100 ML IV PRN (04:29)
[2017-12-15 05:15] LABS: ALBUMIN 2.1 GM/DL (3.4-5.0); ALKALINE PHOSPHATASE 210 U/L (45-117); ALT (GPT) 76 U/L (10-53); AST (GOT) 28 U/L (15-37); BICARBONATE 29.8 MEQ/L (21.0-32.0); BLOOD UREA NITROGEN 65 MG/DL (7-18); CALCIUM 8.4 MG/DL (8.5-10.1); CHLORIDE 105 MEQ/L (98-107); CREATININE 1.55 MG/DL (0.50-1.00); GLOMERULAR FILTRATION RATE 33 ML/MIN (>89); GLUCOSE,RANDOM 129 MG/DL (74-106); MAGNESIUM 2.2 MG/DL (1.5-2.5); PHOSPHORUS 4.1 MG/DL (2.5-4.9); SODIUM (NA) 144 MEQ/L (136-145); TOTAL BILIRUBIN ADULT 0.4 MG/DL (0.2-1.0); TOTAL PROTEIN 5.6 GM/DL (6.4-8.2)
[2017-12-15] MEDS: FAMOTIDINE 20 MG TAB PO SCH ×2 (08:02→20:15)
[2017-12-15] MEDS: CHLORHEXIDINE 0.12% (ORAL KIT) 15 ML CUP MT SCH ×2 (08:03→19:31)
[2017-12-15] MEDS: AMIODARONE 200 MG TAB PO SCH ×2 (08:03→20:15)
[2017-12-15] MEDS: SODIUM CHLORIDE FLUSH BID IV FLUSH SCH ×2 (08:03→20:15)
[2017-12-15] MEDS: ASPIRIN 81 MG CHEW TAB NG SCH (08:03)
[2017-12-15] MEDS: DOCUSATE SODIUM 50 MG/SENNA 8.6 MG TAB PO SCH ×2 (08:03→20:15)
--- NOTE | 2017-12-15 10:12 | PD.CARD.PN ---
Subjective Subjective Remarks Still intubated on CPAP Objective Medications Current Medications Medications (Trade) Dose Ordered Sig/April Route Start Time Stop Time Status Last Admin (Duoneb Neb) 1 ampule Q2HR NEB PRN INH 12/04/17 14:00 12/12/17 04:29 Miscellaneous Information 1 Q361D XX 12/04/17 14:00 (Chlorhexidine 2% Cloth) Taper DAILY@04 TOP 12/05/17 04:00 12/01/18 03:59 12/15/17 04:00 (Chlorhexidine 2% Cloth) 3 pack UNSCH PRN TOP 12/04/17 14:00 (Mera-Colace) 1 tab BID PO 12/04/17 21:00 12/15/17 08:03 (Milk Of Magnesia Liq) 30 ml Q12H PRN PO 12/04/17 14:00 (Senokot) 17.2 mg Q12H PRN PO 12/04/17 14:00 (Dulcolax Supp) 10 mg DAILY PRN RECTAL 12/04/17 14:00 (Lactulose Liq) 30 ml DAILY PRN PO 12/04/17 14:00 (D50w (Vial) Inj) 50 ml UNSCH PRN IV PUSH 12/04/17 14:00 (Glucagon Inj) 1 mg UNSCH PRN OTHER 12/04/17 14:00 Thiamine HCl 100 mg/Sodium Chloride 101 ml @ 101 mls/hr DAILY@1800 IV 12/04/17 18:00 12/14/17 17:37 (Peridex 0.12% Liq) 15 ml BID@08,20 MT 12/04/17 20:00 12/15/17 08:03 Propofol 100 ml @ 2.04 mls/hr TITRATE PRN IV 12/04/17 17:30 12/15/17 04:29 (NS Flush) 2 ml UNSCH PRN IVF 12/05/17 04:15 12/09/17 08:01 (NS Flush) 2 ml BID IV FLUSH 12/05/17 09:00 12/15/17 08:03 Heparin Sodium/ Dextrose 250 ml @ 7.72 mls/hr TITRATE PRN IV 12/05/17 07:00 Future Hold 12/13/17 15:14 (Pepcid) 10 mg Q12HR PO 12/06/17 09:00 5/1/18 08:02 (Aspirin Chew) 81 mg DAILY NG 12/07/17 09:00 12/15/17 08:03 Potassium Chloride 100 ml @ 50 mls/hr Q2H PRN IV 12/09/17 08:00 Potassium Chloride 100 ml @ 50 mls/hr Q2H PRN IV 12/09/17 08:00 12/13/17 15:08 (K-Lyte Cl Eff) 50 meq UNSCH PRN PO 12/09/17 08:00 Potassium Chloride 100 ml @ 25 mls/hr UNSCH PRN IV 12/09/17 08:00 Potassium Chloride 100 ml @ 50 mls/hr Q2H PRN IV 12/09/17 08:00 12/09/17 10:23 Magnesium Sulfate 4 gm/Sodium Chloride 100 ml @ 50 mls/hr UNSCH PRN IV 12/09/17 08:00 (Mag-Ox) 800 mg UNSCH PRN PO 12/09/17 08:00 Magnesium Sulfate 2 gm/Sodium Chloride 100 ml @ 50 mls/hr UNSCH PRN IV 12/09/17 08:00 (K-Phos) 2,000 mg Q4H PRN PO 12/09/17 08:00 Sodium Phosphate 30 mmol/Sodium Chloride 250 ml @ 42 mls/hr UNSCH PRN IV 12/09/17 08:00 (K-Phos) 2,000 mg UNSCH PRN PO/TUBE 12/09/17 08:00 Potassium Phosphate 30 mmol/ Sodium Chloride 260 ml @ 42 mls/hr UNSCH PRN IV 12/09/17 08:00 (NovoLIN R SUPPLEMENTAL SCALE) 1 Q6H SQ 12/09/17 10:00 (Lopressor) 25 mg Q6H PO 12/09/17 14:00 12/13/17 20:31 Lactated Ringer's 1,000 ml @ 50 mls/hr Q20H IV 12/13/17 07:30 12/15/17 02:21 Dexmedetomidine HCl 200 mcg/ Sodium Chloride 52 ml @ 3.82 mls/hr TITRATE PRN IV 12/13/17 15:45 12/15/17 09:40 (fentaNYL INJ) 50 mcg Q2H PRN IV PUSH 12/14/17 09:45 (Cordarone) 200 mg Q12HR PO 12/14/17 21:00 12/15/17 08:03 Vital Signs / I&O Vital Signs Date Time Temp Pulse Resp B/P (MAP) Pulse Ox O2 Delivery O2 Flow Rate FiO2 12/15/17 08:20 35 12/15/17 08:20 93 35 12/15/17 06:00 55 12/15/17 05:00 53 16 111/53 (72) 96 12/15/17 04:30 53 16 114/53 (73) 99 12/15/17 04:11 99 30 12/15/17 04:01 54 16 114/53 (73) 98 12/15/17 04:00 100.2 54 16 97 12/15/17 04:00 30 12/15/17 04:00 54 12/15/17 03:30 54 16 109/51 (70) 99 12/15/17 03:00 54 16 115/54 (74) 100 12/15/17 02:30 54 16 121/56 (77) 100 12/15/17 02:01 54 16 116/54 (74) 100 12/15/17 02:00 54 16 100 12/15/17 02:00 54 12/15/17 01:30 53 16 129/61 (83) 100 12/15/17 01:14 100 30 12/15/17 01:00 54 16 100 12/15/17 00:30 55 16 127/58 (81) 100 12/15/17 00:01 56 16 120/56 (77) 100 12/15/17 00:00 30 12/15/17 00:00 56 12/15/17 00:00 98.3 56 16 98 12/14/17 23:30 55 16 135/62 (86) 100 12/14/17 23:00 54 16 137/65 (89) 100 12/14/17 22:30 53 16 131/64 (86) 100 12/14/17 22:30 100 30 12/14/17 22:00 53 12/14/17 22:00 53 18 134/63 (86) 100 12/14/17 21:30 55 16 132/61 (84) 100 12/14/17 21:00 55 16 129/60 (83) 100 12/14/17 20:30 54 13 128/60 (82) 100 12/14/17 20:00 55 12/14/17 20:00 30 12/14/17 20:00 98.5 55 16 129/60 (83) 100 12/14/17 19:55 100 30 12/14/17 18:00 56 12/14/17 16:10 100 30 12/14/17 16:00 30 12/14/17 16:00 55 12/14/17 16:00 99.6 55 11 120/56 (77) 100 12/14/17 14:00 55 12/14/17 12:00 30 12/14/17 12:00 56 12/14/17 12:00 100.0 56 14 122/56 (78) 100 12/14/17 11:53 100 30 I/O 12/14/17 12/14/17 12/14/17 12/15/17 12/15/17 12/15/17 07:00 15:00 23:00 07:00 15:00 23:00 Intake Total 2761 ml 538 ml 969 ml Output Total 250 ml 0 ml 225 ml 250 ml Balance 2511 ml 0 ml 313 ml 719 ml IV Total 2256 ml 153 ml 364 ml Tube Feeding 380 ml 205 ml 405 ml Tube Irrigant 30 ml Other 125 ml 150 ml 200 ml Output Urine Total 250 ml 225 ml 250 ml Stool Total 0 ml Tube Feeding Residual Discard 0 ml # Bowel Movements 0 0 Physical Exam on CPAP Following yes no questions Neck no JVD Chest + rhonchi CV: SR Abd soft Ext: slight edema tele: SR Laboratory Laboratory Tests Test 12/14/17 20:10 12/15/17 03:40 Activated Partial Thromboplast Time 23.6 SEC White Blood Count 10.0 TH/MM3 Red Blood Count 3.08 MIL/MM3 Hemoglobin 8.7 GM/DL Hematocrit 25.9 % Mean Corpuscular Volume 84.0 FL Mean Corpuscular Hemoglobin 28.1 PG Mean Corpuscular Hemoglobin Concent 33.4 % Red Cell Distribution Width 13.0 % Platelet Count 187 TH/MM3 Mean Platelet Volume 10.0 FL Neutrophils (%) (Auto) 75.9 % Lymphocytes (%) (Auto) 14.7 % Monocytes (%) (Auto) 7.2 % Eosinophils (%) (Auto) 1.4 % Basophils (%) (Auto) 0.8 % Neutrophils # (Auto) 7.6 TH/MM3 Lymphocytes # (Auto) 1.5 TH/MM3 Monocytes # (Auto) 0.7 TH/MM3 Eosinophils # (Auto) 0.1 TH/MM3 Basophils # (Auto) 0.1 TH/MM3 CBC Comment DIFF FINAL Differential Comment Blood Urea Nitrogen 65 MG/DL Creatinine 1.55 MG/DL Random Glucose 129 MG/DL Total Protein 5.6 GM/DL Albumin 2.1 GM/DL Calcium Level 8.4 MG/DL Phosphorus Level 4.1 MG/DL Magnesium Level 2.2 MG/DL Alkaline Phosphatase 210 U/L Aspartate Amino Transf (AST/SGOT) 28 U/L Alanine Aminotransferase (ALT/SGPT) 76 U/L Total Bilirubin 0.4 MG/DL Sodium Level 144 MEQ/L Potassium Level 4.4 MEQ/L Chloride Level 105 MEQ/L Carbon Dioxide Level 29.8 MEQ/L Anion Gap 9 MEQ/L Estimat Glomerular Filtration Rate 33 ML/MIN Assessment and Plan Problem List: (1) Paroxysmal atrial fibrillation with rapid ventricular response ICD Codes: I48.0 - Paroxysmal atrial fibrillation Status: Acute (2) Altered mental status ICD Codes: R41.82 - Altered mental status, unspecified Status: Acute (3) Severe sepsis ICD Codes: A41.9 - Sepsis, unspecified organism; R65.20 - Severe sepsis without septic shock Status: Acute (4) Non-ST elevation NE (NSTEMI) ICD Codes: I21.4 - Non-ST elevation (NSTEMI) myocardial infarction Status: Acute (5) Cardiomyopathy ICD Codes: I42.9 - Cardiomyopathy, unspecified Status: Chronic (6) CVA (cerebral infarction) ICD Codes: I63.9 - Cerebral infarction Status: Acute (7) Shock liver ICD Codes: K72.00 - Acute and subacute hepatic failure without coma (8) LAI (acute kidney injury) ICD Codes: N17.9 - Acute kidney failure, unspecified Status: Acute Problem Qualifiers (1) Altered mental status: Rich Meza MD December 15, 2017 10:12
--- NOTE | 2017-12-15 12:53 | PD.CARD.PN ---
Subjective Subjective Remarks Still intubated on CPAP Objective Medications Current Medications Medications (Trade) Dose Ordered Sig/April Route Start Time Stop Time Status Last Admin (Duoneb Neb) 1 ampule Q2HR NEB PRN INH 12/04/17 14:00 12/12/17 04:29 Miscellaneous Information 1 Q361D XX 12/04/17 14:00 (Chlorhexidine 2% Cloth) Taper DAILY@04 TOP 12/05/17 04:00 12/01/18 03:59 12/15/17 04:00 (Chlorhexidine 2% Cloth) 3 pack UNSCH PRN TOP 12/04/17 14:00 (Mera-Colace) 1 tab BID PO 12/04/17 21:00 12/15/17 08:03 (Milk Of Magnesia Liq) 30 ml Q12H PRN PO 12/04/17 14:00 (Senokot) 17.2 mg Q12H PRN PO 12/04/17 14:00 (Dulcolax Supp) 10 mg DAILY PRN RECTAL 12/04/17 14:00 (Lactulose Liq) 30 ml DAILY PRN PO 12/04/17 14:00 (D50w (Vial) Inj) 50 ml UNSCH PRN IV PUSH 12/04/17 14:00 (Glucagon Inj) 1 mg UNSCH PRN OTHER 12/04/17 14:00 Thiamine HCl 100 mg/Sodium Chloride 101 ml @ 101 mls/hr DAILY@1800 IV 12/04/17 18:00 12/14/17 17:37 (Peridex 0.12% Liq) 15 ml BID@08,20 MT 12/04/17 20:00 12/15/17 08:03 Propofol 100 ml @ 2.04 mls/hr TITRATE PRN IV 12/04/17 17:30 12/15/17 04:29 (NS Flush) 2 ml UNSCH PRN IVF 12/05/17 04:15 12/09/17 08:01 (NS Flush) 2 ml BID IV FLUSH 12/05/17 09:00 12/15/17 08:03 Heparin Sodium/ Dextrose 250 ml @ 7.72 mls/hr TITRATE PRN IV 12/05/17 07:00 Future Hold 12/13/17 15:14 (Pepcid) 10 mg Q12HR PO 12/06/17 09:00 5/1/18 08:02 (Aspirin Chew) 81 mg DAILY NG 12/07/17 09:00 12/15/17 08:03 Potassium Chloride 100 ml @ 50 mls/hr Q2H PRN IV 12/09/17 08:00 Potassium Chloride 100 ml @ 50 mls/hr Q2H PRN IV 12/09/17 08:00 12/13/17 15:08 (K-Lyte Cl Eff) 50 meq UNSCH PRN PO 12/09/17 08:00 Potassium Chloride 100 ml @ 25 mls/hr UNSCH PRN IV 12/09/17 08:00 Potassium Chloride 100 ml @ 50 mls/hr Q2H PRN IV 12/09/17 08:00 12/09/17 10:23 Magnesium Sulfate 4 gm/Sodium Chloride 100 ml @ 50 mls/hr UNSCH PRN IV 12/09/17 08:00 (Mag-Ox) 800 mg UNSCH PRN PO 12/09/17 08:00 Magnesium Sulfate 2 gm/Sodium Chloride 100 ml @ 50 mls/hr UNSCH PRN IV 12/09/17 08:00 (K-Phos) 2,000 mg Q4H PRN PO 12/09/17 08:00 Sodium Phosphate 30 mmol/Sodium Chloride 250 ml @ 42 mls/hr UNSCH PRN IV 12/09/17 08:00 (K-Phos) 2,000 mg UNSCH PRN PO/TUBE 12/09/17 08:00 Potassium Phosphate 30 mmol/ Sodium Chloride 260 ml @ 42 mls/hr UNSCH PRN IV 12/09/17 08:00 (NovoLIN R SUPPLEMENTAL SCALE) 1 Q6H SQ 12/09/17 10:00 (Lopressor) 25 mg Q6H PO 12/09/17 14:00 12/13/17 20:31 Lactated Ringer's 1,000 ml @ 50 mls/hr Q20H IV 12/13/17 07:30 12/15/17 02:21 Dexmedetomidine HCl 200 mcg/ Sodium Chloride 52 ml @ 3.82 mls/hr TITRATE PRN IV 12/13/17 15:45 12/15/17 09:40 (fentaNYL INJ) 50 mcg Q2H PRN IV PUSH 12/14/17 09:45 (Cordarone) 200 mg Q12HR PO 12/14/17 21:00 12/15/17 08:03 Vital Signs / I&O Vital Signs Date Time Temp Pulse Resp B/P (MAP) Pulse Ox O2 Delivery O2 Flow Rate FiO2 12/15/17 11:52 96 40 12/15/17 08:20 35 12/15/17 08:20 93 35 12/15/17 08:00 98.8 62 20 124/88 (100) 92 12/15/17 06:00 55 12/15/17 05:00 53 16 111/53 (72) 96 12/15/17 04:30 53 16 114/53 (73) 99 12/15/17 04:11 99 30 12/15/17 04:01 54 16 114/53 (73) 98 12/15/17 04:00 100.2 54 16 97 12/15/17 04:00 30 12/15/17 04:00 54 12/15/17 03:30 54 16 109/51 (70) 99 12/15/17 03:00 54 16 115/54 (74) 100 12/15/17 02:30 54 16 121/56 (77) 100 12/15/17 02:01 54 16 116/54 (74) 100 12/15/17 02:00 54 16 100 12/15/17 02:00 54 12/15/17 01:30 53 16 129/61 (83) 100 12/15/17 01:14 100 30 12/15/17 01:00 54 16 100 12/15/17 00:30 55 16 127/58 (81) 100 12/15/17 00:01 56 16 120/56 (77) 100 12/15/17 00:00 30 12/15/17 00:00 56 12/15/17 00:00 98.3 56 16 98 12/14/17 23:30 55 16 135/62 (86) 100 12/14/17 23:00 54 16 137/65 (89) 100 12/14/17 22:30 53 16 131/64 (86) 100 12/14/17 22:30 100 30 12/14/17 22:00 53 12/14/17 22:00 53 18 134/63 (86) 100 12/14/17 21:30 55 16 132/61 (84) 100 12/14/17 21:00 55 16 129/60 (83) 100 12/14/17 20:30 54 13 128/60 (82) 100 12/14/17 20:00 55 12/14/17 20:00 30 12/14/17 20:00 98.5 55 16 129/60 (83) 100 12/14/17 19:55 100 30 12/14/17 18:00 56 12/14/17 16:10 100 30 12/14/17 16:00 30 12/14/17 16:00 55 12/14/17 16:00 99.6 55 11 120/56 (77) 100 12/14/17 14:00 55 I/O 12/14/17 12/14/17 12/14/17 12/15/17 12/15/17 12/15/17 07:00 15:00 23:00 07:00 15:00 23:00 Intake Total 2761 ml 538 ml 969 ml Output Total 250 ml 0 ml 225 ml 250 ml Balance 2511 ml 0 ml 313 ml 719 ml IV Total 2256 ml 153 ml 364 ml Tube Feeding 380 ml 205 ml 405 ml Tube Irrigant 30 ml Other 125 ml 150 ml 200 ml Output Urine Total 250 ml 225 ml 250 ml Stool Total 0 ml Tube Feeding Residual Discard 0 ml # Bowel Movements 0 0 Physical Exam on CPAP Following yes no questions Neck no JVD Chest clear CV: SR Abd soft Ext: slight edema tele: SR Laboratory Laboratory Tests Test 12/14/17 20:10 12/15/17 03:40 Activated Partial Thromboplast Time 23.6 SEC White Blood Count 10.0 TH/MM3 Red Blood Count 3.08 MIL/MM3 Hemoglobin 8.7 GM/DL Hematocrit 25.9 % Mean Corpuscular Volume 84.0 FL Mean Corpuscular Hemoglobin 28.1 PG Mean Corpuscular Hemoglobin Concent 33.4 % Red Cell Distribution Width 13.0 % Platelet Count 187 TH/MM3 Mean Platelet Volume 10.0 FL Neutrophils (%) (Auto) 75.9 % Lymphocytes (%) (Auto) 14.7 % Monocytes (%) (Auto) 7.2 % Eosinophils (%) (Auto) 1.4 % Basophils (%) (Auto) 0.8 % Neutrophils # (Auto) 7.6 TH/MM3 Lymphocytes # (Auto) 1.5 TH/MM3 Monocytes # (Auto) 0.7 TH/MM3 Eosinophils # (Auto) 0.1 TH/MM3 Basophils # (Auto) 0.1 TH/MM3 CBC Comment DIFF FINAL Differential Comment Blood Urea Nitrogen 65 MG/DL Creatinine 1.55 MG/DL Random Glucose 129 MG/DL Total Protein 5.6 GM/DL Albumin 2.1 GM/DL Calcium Level 8.4 MG/DL Phosphorus Level 4.1 MG/DL Magnesium Level 2.2 MG/DL Alkaline Phosphatase 210 U/L Aspartate Amino Transf (AST/SGOT) 28 U/L Alanine Aminotransferase (ALT/SGPT) 76 U/L Total Bilirubin 0.4 MG/DL Sodium Level 144 MEQ/L Potassium Level 4.4 MEQ/L Chloride Level 105 MEQ/L Carbon Dioxide Level 29.8 MEQ/L Anion Gap 9 MEQ/L Estimat Glomerular Filtration Rate 33 ML/MIN Imaging Last 48 hours Impressions Chest X-Ray 12/14/17 0600 Signed Impressions: Service Date/Time: Thursday, December 14, 2017 01:38 - CONCLUSION: 1. Improving aeration in the left base with some minimal atelectatic changes. 2. Right basilar consolidation and associated effusion may also be slightly better. 3. Stable cardiomegaly. Stable position of life support tubes Mahendra Poe MD Assessment and Plan Problem List: (1) Paroxysmal atrial fibrillation with rapid ventricular response ICD Codes: I48.0 - Paroxysmal atrial fibrillation Status: Acute Plan: stable on PO amio (2) Non-ST elevation SD (NSTEMI) ICD Codes: I21.4 - Non-ST elevation (NSTEMI) myocardial infarction Status: Acute Plan: Medical therapy (3) Cardiomyopathy ICD Codes: I42.9 - Cardiomyopathy, unspecified Status: Chronic (4) CVA (cerebral infarction) ICD Codes: I63.9 - Cerebral infarction Status: Acute Rich Meza MD December 15, 2017 12:53
--- NOTE | 2017-12-15 16:30 | HHI.CCPN ---
Subjective Remarks/Hospital Course 77-year-old female who is apparently very active at baseline, with past medical history significant for hypertension and previous TIA, tobacco abuse. She was seen last normal yesterday night at 7 PM. Her friends checked on her today morning and was found down, disoriented, staring off to the left, not answering questions. I am not able to get much further history from her. She has a fever of 101 in the ER, initially and then spiked to 103.7. ER workup included a CT scan of head which was negative for acute findings. Lab work showed a white count of 15.9 with left shift, lactic acid was 3.4, troponin was elevated at 8.7. Cardiology Dr. Meza was contacted aspirin was given patient was recommended to be started on IV heparin but was held for LP. Lumbar puncture was unremarkable nevertheless patient was started on meningitic doses of vancomycin and Rocephin. I have added ampicillin 2 g IV every 4 hours, and acyclovir 680 mg IV every 8 hours. I evaluated the patient in the ICU. Patient is severely altered tachypneic in moderate distress. Patient is aphasic with left gaze preference diminished movements of the right upper and lower extremity. A bedside echo shows reduced EF approximately 20-25%, global hypokinesis. Patient has no history of cardiomyopathy to my knowledge. At this time his stroke cannot be ruled out. Stat MRI MRA had been ordered. Due to altered mentation tachypnea and lack of airway protection patient was intubated and placed on mechanical ventilation SUBJECTIVE: 12/05: Remains intubated sedated. MRI brain showing small punctate areas of signal abnormality in the posterior left temporal lobe-possible small focal areas of acute infarction. Also several areas of signal abnormality in the basal ganglia and left posterior temporal lobes likely from prior hemorrhage. Demyelination within the cerebral and pontine white matter likely from small vessel ischemic change. Neurology consult. Stat EEG is pending. Fever is down trending afebrile now, developed atrial fibrillation with RVR started on amiodarone infusion. I have resumed heparin infusion. 12/06: Afebrile. Last evening the patient had decreased mat requiring additional pressor support vasopressin added to medication regimen and diminished urinary output. Patient was noted to have significant elevation in creatinine this a.m. Patient remains on vasopressin and norepinephrine vasopressor support. Patient continues on amiodarone infusion, plan to transition to p.o.. Sedation vacation initiated yesterday for EEG, per report patient following commands. Sedation vacation in progress at this time. Noticed slight elevation in WBC count, repeat urine culture pending. 12/07: Remains intubated sedated. Currently on IV heparin infusion, amiodarone infusion and vasopressin gtt to maintain MAP >65. Had developed acute kidney injury yesterday creatinine had bumped to 2. Urine output 550 mL in the last 24 hours. CMP today is pending. On sedation hold patient opens eyes weakly moves extremities do not follow commands. Remains severely encephalopathy 12/08: No events over the night. Patient remains encephalopathic, opens eyes to voice stimuli, but does not consistently follow commands. She remains on amiodarone and heparin infusions, no pressors. T-max of 99.6. I/O 2250/960, more than 11 L positive since admission if correctly documented. 12/09: Few episodes of A. fib with RVR over the night. T-max of 99.1. Patient remains intubated and sedated. No family present at bedside. 12/10: No events over the night. Patient is more awake this a.m. 30 with propofol. Good response to diuresis, T-max 100.1. In telemetry, patient currently in sinus rhythm and she continues to be on amiodarone infusion. 12/11: No events over the night. T-max of 100.2. On 35 off propofol this morning, arousable, following some commands. Diuresing well with Lasix. She remains in sinus rhythm. 12/12: Patient remains intubated and sedated, on propofol at 35. Yesterday patient tolerated CPAP trials for a little less than 2 hours. Afebrile, with a T-max of 99.8. I/O 2069/2099. Patient is arousable, tracking, following some commands. 12/13: No events over the night. T-max of 99.9. Patient is awake, on some sedation, following some commands. Urine dark with some sediment. 12/14: Patient developed worsening hematuria over the night therefore I stopped heparin drip this morning. Yesterday she tolerated CPAP for approximately 2 hours then she became tachypneic. Sedation was changed to Precedex and propofol was stopped, patient is awake and calm following commands. Still significant amount of sputum secretions. T-max of 99.1. I/O 2485/1125. 5/1: Tmax 100.2. The patient continues on Precedex infusion, with a RASS -1. No active signs of bleeding, no hematuria noted. Subcu heparin DVT prophylaxis instituted. Objective Vital Signs Date Time Temp Pulse Resp B/P (MAP) Pulse Ox O2 Delivery O2 Flow Rate FiO2 12/15/17 16:14 94 40 12/15/17 14:00 52 12/15/17 12:00 99.1 13 124/58 (80) Intake and Output 12/15/17 12/15/17 12/16/17 08:00 16:00 00:00 Intake Total 917 ml Output Total 250 ml Balance 667 ml Result Diagram: 12/15/17 0340 12/15/17 0340 Other Results Microbiology Date/Time Source Procedure Growth Status 12/12/17 17:30 Urine Clean Catch Urine Culture - Final NO GROWTH IN 48 HOURS. Complete Imaging Last 24 hours Impressions Chest X-Ray 12/14/17 06 Signed Impressions: Service Date/Time: Thursday, December 14, 2017 01:38 - CONCLUSION: 1. Improving aeration in the left base with some minimal atelectatic changes. 2. Right basilar consolidation and associated effusion may also be slightly better. 3. Stable cardiomegaly. Stable position of life support tubes Mahendra Poe MD Last 24 hours Impressions Chest X-Ray 12/12/17 0000 Signed Impressions: Service Date/Time: Tuesday, December 12, 2017 06:50 - CONCLUSION: No significant change has occurred. Philippe Peters MD Last 24 hours Impressions Chest X-Ray 12/10/17 0600 Signed Impressions: Service Date/Time: November 03:55 - CONCLUSION: 1. Right basilar density unchanged likely small pleural effusion and associated density. 2. Cardiomegaly. Gideon Lin MD Last 24 hours Impressions Chest X-Ray 12/08/17 0600 Signed Impressions: Service Date/Time: Friday, December 08, 2017 03:05 - CONCLUSION: 1. Endotracheal tube and nasogastric tube in satisfactory position. Mild basilar airspace disease persists. Shay Rausch MD Last Impressions Chest X-Ray 12/05/17 0000 Signed Impressions: Service Date/Time: Tuesday, December 05, 2017 13:23 - CONCLUSION: 1. Interval placement of a right subclavian central venous catheter with the tip projecting over the central venous system. No pneumothorax 2. Lungs remain hyperinflated with probable bibasilar atelectasis. 3. Compensated cardiomegaly. Mahendra Poe MD Chest CT 12/04/17 1154 Signed Impressions: Service Date/Time: Monday, December 04, 2017 12:43 - CONCLUSION: Probable mild congestive failure with trace pleural effusions. No evidence for mass. Jean-Paul Hoffmann MD FACR Head CT 12/04/17 1126 Signed Impressions: Service Date/Time: Monday, December 04, 2017 12:37 - CONCLUSION: Stable brain appearance. No acute intracranial findings Anam Rojas MD Neck Magnetic Resonance Angiography 12/04/17 0000 Signed Impressions: Service Date/Time: Monday, December 04, 2017 20:36 - CONCLUSION: 1. Mild plaque at the right carotid bulb/proximal internal carotid artery without significant stenosis. 2. Significant opacification of the aortic arch and origins of the great vessels is not present. These areas cannot be evaluated. Anam Donis MD Head Magnetic Resonance Angiography 12/04/17 0000 Signed Impressions: Service Date/Time: Monday, December 04, 2017 20:36 - CONCLUSION: No acute disease. Anam Donis MD Brain MRI 12/04/17 0000 Signed Impressions: Service Date/Time: Monday, December 04, 2017 20:36 - CONCLUSION: 1. Small punctate areas of signal abnormality in the posterior left temporal lobe which may represent small focal areas of acute infarction. 2. Several areas of signal abnormality in the basal ganglia and left posterior temporal lobes likely from prior hemorrhage. 3. Demyelination within the cerebral and pontine white matter likely from small vessel ischemic change. Anam Donis MD Objective Remarks General -This is a well-developed well-nourished elderly female chronically ill- appearing, weak HEENT - pupils are equal and reactive, sclerae are anicteric, neck is supple, neck veins are distended, + ETT, + NGT, right subclavian line in place -site remains clean CV - irregular heart sounds, no murmurs, rubs or gallop Chest - still has scattered coarse breath sounds b/l, good air entry, no wheezes Abdomen - soft, non-distended, non-tender, BS present Extremities - 2+ edema over both upper and lower extremities, + peripheral pulses, warm Neuro - intubated, awake, follows some commands, wiggles toes and squeezes fingers bilaterally, right stronger than left A/P Problem List: (1) Acute metabolic encephalopathy ICD Code: G93.41 - Metabolic encephalopathy Status: Acute (2) Paroxysmal atrial fibrillation with rapid ventricular response ICD Code: I48.0 - Paroxysmal atrial fibrillation Status: Acute (3) Lactic acidemia ICD Code: E87.2 - Acidosis Status: Acute (4) Cardiomyopathy ICD Code: I42.9 - Cardiomyopathy, unspecified Status: Chronic (5) Non-ST elevation UT (NSTEMI) ICD Code: I21.4 - Non-ST elevation (NSTEMI) myocardial infarction Status: Acute (6) Severe sepsis ICD Code: A41.9 - Sepsis, unspecified organism; R65.20 - Severe sepsis without septic shock Status: Acute (7) Altered mental status ICD Code: R41.82 - Altered mental status, unspecified Status: Acute (8) Hypertension ICD Code: I10 - Hypertension Status: Chronic (9) LAI (acute kidney injury) ICD Code: N17.9 - Acute kidney failure, unspecified Status: Acute (10) Metabolic acidosis ICD Code: E87.2 - Acidosis Status: Acute Assessment and Plan Assessment Acute encephalopathy -very slowly improving, but she remains weak 2. Ischemic stroke 3. Acute respiratory failure from lack of airway protection, on minimal O2 requirement, attempting CPAP trials every day 4. NSTEMI 5. Cardiomyopathy, with reduced EF, possible viral myocarditis 6. Atrial fibrillation with RVR -heart rate better controlled 7. Circulatory shock -patient remains off pressors 8. LAI -creatinine is improving, urine output is appropriate 9. Severe metabolic acidosis - resolved 10. Volume overload -positive more than 11 L since admission, improved with diuresis 11. Elevated liver enzymes -gradually trending down 12. Hematuria-resolved 13 VDRF PLAN 1. Patient switched to CPAP, 15/5 and 30% O2. To use CPAP trials. Tentative plan for possible tracheostomy if unable to wean 2. Vent bundle and bronchodilators 3. Continue Precedex 4. Stop heparin due to hematuria 5. Continue metoprolol and amiodarone 6. Stop Lasix since patient is developing contraction alkalosis, BUN and creatinine trending up. Gentle IV hydration with LR at 50 mL's per hour 7. Off antibiotics per ID 8. Central line right subclavian (12/05), arterial line was removed 9. GI and DVT prophylaxis addressed 10. Continue tube feeds No family present at bedside. Level 3 follow-up Physician Evelin De La Vega Problem Qualifiers (1) Altered mental status: (2) Hypertension: Qualified Codes: I10 - Essential (primary) hypertension Evelin De La Vega MD December 15, 2017 16:30
[2017-12-15] MEDS: THIAMINE INJ 100 MG in SODIUM CHLORIDE 0.9% INJ 100 ML IV SCH (18:26)
[2017-12-15] MEDS: HEPARIN SODIUM - SQ 10,000 UNITS/ML VIAL SQ SCH (20:15)
[2017-12-16] VITALS (27 sets, daily range): BP systolic 123–150; BP diastolic 57–65; PULSE 53–60; RESP 0–32; TEMP 98–99.8; O2SAT 95–100
[2017-12-16] MEDS: DEXMEDETOMIDINE INJ 200 MCG in SODIUM CHLORIDE 0.9% INJ 50 ML IV PRN ×7 (01:20→20:47)
[2017-12-16] MEDS: METOPROLOL TARTRATE 25 MG TAB PO SCH ×4 (01:20→19:37)
[2017-12-16] MEDS: INSULIN NovoLIN REGULAR SUPPLEMENTAL SCALE SQ SCH ×4 (04:00→19:37)
[2017-12-16] MEDS: CHLORHEXIDINE GLUCONATE 2 % 1 PACK (2 CLOTHS) TOP SCH (04:00)
[2017-12-16 04:03] LABS: HEMATOCRIT 24.6 % (35.0-46.0); HEMOGLOBIN 8.3 GM/DL (11.6-15.3); MEAN CELL VOLUME 83.6 FL (80.0-100.0); MEAN CORPUSCULAR HEMOGLOBIN 28.1 PG (27.0-34.0); MEAN CORPUSCULAR HGB CONC 33.6 % (32.0-36.0); MEAN PLATELET VOLUME 10.1 FL (7.0-11.0); PLATELET COUNT 194 TH/MM3 (150-450); RED BLOOD COUNT 2.94 MIL/MM3 (4.00-5.30); RED CELL DISTRIBUTION WIDTH 13.2 % (11.6-17.2); WHITE BLOOD COUNT 8.3 TH/MM3 (4.0-11.0)
--- NOTE | 2017-12-16 04:10 | RADRPT ---
EXAM DATE/TIME: 12/16/2017 02:55 [facility] COMPARISON: CHEST SINGLE AP, December 14, 2017, 1:38. INDICATIONS : Short of breath. MEDICAL HISTORY : Hypertension. SURGICAL HISTORY : None. ENCOUNTER: Subsequent ACUITY: 2 weeks PAIN SCORE: 0/10 LOCATION: Bilateral chest FINDINGS: A single view of the chest demonstrates worsening right basilar consolidation/effusion. Left lung rem ains clear. Heart size is prominent. Minimal biapical scarring is unchanged. Nasogastric tube has bee n pulled back with the tip just past the GE junction. The side-port is actually above the GE junction . Otherwise, the endotracheal tube and right subclavian central venous catheter are stable in positio n. A medullary malaika and osseous screws in the proximal right humerus CONCLUSION: 1. Worsening right basilar consolidation/effusion. 2. Nasogastric tube has been pulled back. The side-port is now above the GE junction. 3. Stable cardiomegaly Mahendra Poe MD on December 16, 2017 at 4:06 Board Certified Radiologist. This report was verified electronically.
[2017-12-16 04:26] LABS: BICARBONATE 30.2 MEQ/L (21.0-32.0); CALCIUM 8.2 MG/DL (8.5-10.1); CREATININE 1.68 MG/DL (0.50-1.00); MAGNESIUM 2.4 MG/DL (1.5-2.5)
[2017-12-16 04:28] LABS: PHOSPHORUS 4.7 MG/DL (2.5-4.9)
[2017-12-16] MEDS: ASPIRIN 81 MG CHEW TAB NG SCH (09:56)
[2017-12-16] MEDS: AMIODARONE 200 MG TAB PO SCH ×2 (09:56→19:31)
[2017-12-16] MEDS: FAMOTIDINE 20 MG TAB PO SCH ×2 (09:56→19:36)
[2017-12-16] MEDS: DOCUSATE SODIUM 50 MG/SENNA 8.6 MG TAB PO SCH ×2 (09:56→19:30)
[2017-12-16] MEDS: HEPARIN SODIUM - SQ 10,000 UNITS/ML VIAL SQ SCH ×2 (09:57→19:30)
[2017-12-16] MEDS: CHLORHEXIDINE 0.12% (ORAL KIT) 15 ML CUP MT SCH ×2 (09:57→19:37)
[2017-12-16] MEDS: SODIUM CHLORIDE FLUSH BID IV FLUSH SCH ×2 (09:57→19:37)
--- NOTE | 2017-12-16 13:59 | HHI.CCPN ---
Subjective Remarks/Hospital Course 77-year-old female who is apparently very active at baseline, with past medical history significant for hypertension and previous TIA, tobacco abuse. She was seen last normal yesterday night at 7 PM. Her friends checked on her today morning and was found down, disoriented, staring off to the left, not answering questions. I am not able to get much further history from her. She has a fever of 101 in the ER, initially and then spiked to 103.7. ER workup included a CT scan of head which was negative for acute findings. Lab work showed a white count of 15.9 with left shift, lactic acid was 3.4, troponin was elevated at 8.7. Cardiology Dr. Meza was contacted aspirin was given patient was recommended to be started on IV heparin but was held for LP. Lumbar puncture was unremarkable nevertheless patient was started on meningitic doses of vancomycin and Rocephin. I have added ampicillin 2 g IV every 4 hours, and acyclovir 680 mg IV every 8 hours. I evaluated the patient in the ICU. Patient is severely altered tachypneic in moderate distress. Patient is aphasic with left gaze preference diminished movements of the right upper and lower extremity. A bedside echo shows reduced EF approximately 20-25%, global hypokinesis. Patient has no history of cardiomyopathy to my knowledge. At this time his stroke cannot be ruled out. Stat MRI MRA had been ordered. Due to altered mentation tachypnea and lack of airway protection patient was intubated and placed on mechanical ventilation SUBJECTIVE: 12/05: Remains intubated sedated. MRI brain showing small punctate areas of signal abnormality in the posterior left temporal lobe-possible small focal areas of acute infarction. Also several areas of signal abnormality in the basal ganglia and left posterior temporal lobes likely from prior hemorrhage. Demyelination within the cerebral and pontine white matter likely from small vessel ischemic change. Neurology consult. Stat EEG is pending. Fever is down trending afebrile now, developed atrial fibrillation with RVR started on amiodarone infusion. I have resumed heparin infusion. 12/06: Afebrile. Last evening the patient had decreased mat requiring additional pressor support vasopressin added to medication regimen and diminished urinary output. Patient was noted to have significant elevation in creatinine this a.m. Patient remains on vasopressin and norepinephrine vasopressor support. Patient continues on amiodarone infusion, plan to transition to p.o.. Sedation vacation initiated yesterday for EEG, per report patient following commands. Sedation vacation in progress at this time. Noticed slight elevation in WBC count, repeat urine culture pending. 12/07: Remains intubated sedated. Currently on IV heparin infusion, amiodarone infusion and vasopressin gtt to maintain MAP >65. Had developed acute kidney injury yesterday creatinine had bumped to 2. Urine output 550 mL in the last 24 hours. CMP today is pending. On sedation hold patient opens eyes weakly moves extremities do not follow commands. Remains severely encephalopathy 12/08: No events over the night. Patient remains encephalopathic, opens eyes to voice stimuli, but does not consistently follow commands. She remains on amiodarone and heparin infusions, no pressors. T-max of 99.6. I/O 2250/960, more than 11 L positive since admission if correctly documented. 12/09: Few episodes of A. fib with RVR over the night. T-max of 99.1. Patient remains intubated and sedated. No family present at bedside. 12/10: No events over the night. Patient is more awake this a.m. 30 with propofol. Good response to diuresis, T-max 100.1. In telemetry, patient currently in sinus rhythm and she continues to be on amiodarone infusion. 12/11: No events over the night. T-max of 100.2. On 35 off propofol this morning, arousable, following some commands. Diuresing well with Lasix. She remains in sinus rhythm. 12/12: Patient remains intubated and sedated, on propofol at 35. Yesterday patient tolerated CPAP trials for a little less than 2 hours. Afebrile, with a T-max of 99.8. I/O 2069/2099. Patient is arousable, tracking, following some commands. 12/13: No events over the night. T-max of 99.9. Patient is awake, on some sedation, following some commands. Urine dark with some sediment. 12/14: Patient developed worsening hematuria over the night therefore I stopped heparin drip this morning. Yesterday she tolerated CPAP for approximately 2 hours then she became tachypneic. Sedation was changed to Precedex and propofol was stopped, patient is awake and calm following commands. Still significant amount of sputum secretions. T-max of 99.1. I/O 2485/1125. 12/15: Tmax 100.2. The patient continues on Precedex infusion, with a RASS -1. No active signs of bleeding, no hematuria noted. Subcu heparin DVT prophylaxis instituted. 12/16: T-max 100.3. Patient awake and responsive on Precedex infusion. Discussion with family planned for tracheostomy and PEG placement, due to slow vent weaning. Patient continues on CPAP trials. Creatinine slightly more elevated today IV infusion increased to 100 cc/hr. Objective Vital Signs Date Time Temp Pulse Resp B/P (MAP) Pulse Ox O2 Delivery O2 Flow Rate FiO2 12/16/17 12:07 99 30 12/16/17 06:00 54 12/16/17 04:30 0 125/57 (79) 12/16/17 04:00 99.0 Intake and Output 12/16/17 12/16/17 12/17/17 08:00 16:00 00:00 Intake Total 1195 ml Output Total 300 ml Balance 895 ml Result Diagram: 12/16/17 0335 12/16/17 0335 Imaging Last 24 hours Impressions Chest X-Ray 12/14/17 0600 Signed Impressions: Service Date/Time: Thursday, December 14, 2017 01:38 - CONCLUSION: 1. Improving aeration in the left base with some minimal atelectatic changes. 2. Right basilar consolidation and associated effusion may also be slightly better. 3. Stable cardiomegaly. Stable position of life support tubes Mahendra Poe MD Last 24 hours Impressions Chest X-Ray 12/12/17 0000 Signed Impressions: Service Date/Time: Tuesday, December 12, 2017 06:50 - CONCLUSION: No significant change has occurred. Philippe Peters MD Last 24 hours Impressions Chest X-Ray 12/10/17 0600 Signed Impressions: Service Date/Time: November 03:55 - CONCLUSION: 1. Right basilar density unchanged likely small pleural effusion and associated density. 2. Cardiomegaly. Gideon Lin MD Last 24 hours Impressions Chest X-Ray 12/08/17 0600 Signed Impressions: Service Date/Time: Friday, December 08, 2017 03:05 - CONCLUSION: 1. Endotracheal tube and nasogastric tube in satisfactory position. Mild basilar airspace disease persists. Shay Rausch MD Last Impressions Chest X-Ray 12/05/17 0000 Signed Impressions: Service Date/Time: Tuesday, December 05, 2017 13:23 - CONCLUSION: 1. Interval placement of a right subclavian central venous catheter with the tip projecting over the central venous system. No pneumothorax 2. Lungs remain hyperinflated with probable bibasilar atelectasis. 3. Compensated cardiomegaly. Mahendra Poe MD Chest CT 12/04/17 1154 Signed Impressions: Service Date/Time: Monday, December 04, 2017 12:43 - CONCLUSION: Probable mild congestive failure with trace pleural effusions. No evidence for mass. Jean-Paul Hoffmann MD FACR Head CT 12/04/17 1126 Signed Impressions: Service Date/Time: Monday, December 04, 2017 12:37 - CONCLUSION: Stable brain appearance. No acute intracranial findings Anam Rojas MD Neck Magnetic Resonance Angiography 12/04/17 0000 Signed Impressions: Service Date/Time: Monday, December 04, 2017 20:36 - CONCLUSION: 1. Mild plaque at the right carotid bulb/proximal internal carotid artery without significant stenosis. 2. Significant opacification of the aortic arch and origins of the great vessels is not present. These areas cannot be evaluated. Anam Donis MD Head Magnetic Resonance Angiography 12/04/17 0000 Signed Impressions: Service Date/Time: Monday, December 04, 2017 20:36 - CONCLUSION: No acute disease. Anam Donis MD Brain MRI 12/04/17 0000 Signed Impressions: Service Date/Time: Monday, December 04, 2017 20:36 - CONCLUSION: 1. Small punctate areas of signal abnormality in the posterior left temporal lobe which may represent small focal areas of acute infarction. 2. Several areas of signal abnormality in the basal ganglia and left posterior temporal lobes likely from prior hemorrhage. 3. Demyelination within the cerebral and pontine white matter likely from small vessel ischemic change. Anam Donis MD Objective Remarks General -This is a well-developed well-nourished elderly female chronically ill- appearing, weak HEENT - pupils are equal and reactive, sclerae are anicteric, neck is supple, neck veins are distended, + ETT, + NGT, right subclavian line in place -site remains clean CV - irregular heart sounds, no murmurs, rubs or gallop Chest - still has scattered coarse breath sounds b/l, good air entry, no wheezes Abdomen - soft, non-distended, non-tender, BS present Extremities - 2+ edema over both upper and lower extremities, + peripheral pulses, warm Neuro - intubated, awake, follows some commands, wiggles toes and squeezes fingers bilaterally, right stronger than left A/P Problem List: (1) Acute metabolic encephalopathy ICD Code: G93.41 - Metabolic encephalopathy Status: Acute (2) Paroxysmal atrial fibrillation with rapid ventricular response ICD Code: I48.0 - Paroxysmal atrial fibrillation Status: Acute (3) Lactic acidemia ICD Code: E87.2 - Acidosis Status: Acute (4) Cardiomyopathy ICD Code: I42.9 - Cardiomyopathy, unspecified Status: Chronic (5) Non-ST elevation NC (NSTEMI) ICD Code: I21.4 - Non-ST elevation (NSTEMI) myocardial infarction Status: Acute (6) Severe sepsis ICD Code: A41.9 - Sepsis, unspecified organism; R65.20 - Severe sepsis without septic shock Status: Acute (7) Altered mental status ICD Code: R41.82 - Altered mental status, unspecified Status: Acute (8) Hypertension ICD Code: I10 - Hypertension Status: Chronic (9) LAI (acute kidney injury) ICD Code: N17.9 - Acute kidney failure, unspecified Status: Acute (10) Metabolic acidosis ICD Code: E87.2 - Acidosis Status: Acute Assessment and Plan Assessment Acute encephalopathy -very slowly improving, but she remains weak 2. Ischemic stroke 3. Acute respiratory failure from lack of airway protection, on minimal O2 requirement, attempting CPAP trials every day 4. NSTEMI 5. Cardiomyopathy, with reduced EF, possible viral myocarditis 6. Atrial fibrillation with RVR -heart rate better controlled 7. Circulatory shock -patient remains off pressors 8. LAI -creatinine is improving, urine output is appropriate 9. Severe metabolic acidosis - resolved 10. Volume overload -positive more than 11 L since admission, improved with diuresis 11. Elevated liver enzymes -gradually trending down 12. Hematuria-resolved 13 VDRF PLAN 1. Patient switched to CPAP, 15/5 and 30% O2. To use CPAP trials. Tentative plan for possible tracheostomy if unable to wean 2. Vent bundle and bronchodilators 3. Continue Precedex 4. Heparin infusion discontinued due to hematuria 5. Continue metoprolol and amiodarone 6. Stop Lasix since patient is developing contraction alkalosis, BUN and creatinine trending up.IV hydration increased 5/2 LR at 100 mL's per hour 7. Off antibiotics per ID 8. Central line right subclavian (12/05), arterial line was removed 9. GI and DVT prophylaxis addressed 10. Continue tube feeds No family present at bedside. Level 3 follow-up Discussed with [employer] TOOL[employer]TER at bedside. Physician Evelin De La Vega Problem Qualifiers (1) Altered mental status: (2) Hypertension: Qualified Codes: I10 - Essential (primary) hypertension Evelin De La Vega MD December 16, 2017 13:59
[2017-12-16] MEDS: LACTATED RINGER'S 1000 ML INJ 1,000 ML IV SCH (14:41)
--- NOTE | 2017-12-16 15:14 | PD.CONS ---
HPI History of Present Illness This is a 77 year old female with hx TIA who was found down. On admission she was febrile, found to have elevated WBC and troponins. She was tachypneic and subsequently intubated. CPAP trials are ongoing but vent weaning is going slowly and GI has been consulted for PEG tube placement. d/w pt's daughter Isela Pires [phone] and she is agreeable to proceed. (Yarelis Sweeney) PFSH Past Medical History HTN TIA Past Surgical History cataracts breast augmentation (Yarelis Sweeney) Coded Allergies: doxycycline (Unverified Allergy, Severe, 12/04/17) ALTERED MENTAL STATUS minocycline (Unverified Allergy, Severe, 12/04/17) ALTERED MENTAL STATUS tigecycline (Unverified Allergy, Severe, 12/04/17) ALTERED MENTAL STATUS Family History unk Social History 2 beers daily 5 cigarettes daily (Yarelis Sweeney) Review of Systems unobtainable (Yarelis Sweeney) GI Exam Vitals I&O Vital Signs Date Time Temp Pulse Resp B/P (MAP) Pulse Ox O2 Delivery O2 Flow Rate FiO2 12/16/17 12:07 99 30 12/16/17 12:00 57 12/16/17 12:00 98.9 57 14 137/61 (86) 98 12/16/17 12:00 30 12/16/17 11:55 30 12/16/17 10:00 55 12/16/17 10:00 30 12/16/17 08:02 98 30 12/16/17 08:00 30 12/16/17 08:00 99.2 54 11 129/62 (84) 98 12/16/17 08:00 54 12/16/17 06:00 54 12/16/17 04:30 56 0 125/57 (79) 99 12/16/17 04:19 100 30 12/16/17 04:01 58 32 135/60 (85) 100 12/16/17 04:00 99.0 58 23 100 12/16/17 04:00 58 12/16/17 04:00 30 12/16/17 03:31 54 22 123/58 (79) 99 12/16/17 03:30 54 26 98 12/16/17 03:00 55 26 131/60 (83) 99 12/16/17 02:30 54 16 124/57 (79) 98 12/16/17 02:00 54 16 128/58 (81) 99 12/16/17 02:00 54 12/16/17 01:40 100 30 12/16/17 01:30 54 17 132/60 (84) 100 12/16/17 01:00 57 17 138/63 (88) 100 12/16/17 00:30 53 16 128/59 (82) 100 12/16/17 00:00 53 12/16/17 00:00 30 12/16/17 00:00 98.0 53 16 125/58 (80) 100 12/15/17 23:30 54 25 124/59 (80) 100 12/15/17 23:00 53 16 123/58 (79) 100 12/15/17 22:30 53 24 128/60 (82) 100 12/15/17 22:03 96 30 12/15/17 22:00 53 12/15/17 22:00 53 16 126/59 (81) 100 12/15/17 21:30 52 16 124/59 (80) 100 12/15/17 21:00 53 18 124/59 (80) 100 12/15/17 20:30 53 21 130/60 (83) 100 12/15/17 20:00 30 12/15/17 20:00 97.8 53 17 128/58 (81) 100 12/15/17 20:00 53 12/15/17 19:30 54 16 122/58 (79) 12/15/17 19:10 96 30 12/15/17 19:00 63 21 130/59 (82) 93 12/15/17 18:00 61 12/15/17 16:14 94 40 12/15/17 16:00 53 12/15/17 16:00 100.3 53 12 122/55 (77) 100 12/15/17 16:00 40 12/15/17 16:00 100.3 I/O 12/15/17 12/15/17 12/15/17 12/16/17 12/16/17 12/16/17 07:00 15:00 23:00 07:00 15:00 23:00 Intake Total 969 ml 1101 ml 1195 ml Output Total 250 ml 250 ml 300 ml Balance 719 ml 851 ml 895 ml IV Total 364 ml 1101 ml 582 ml Tube Feeding 405 ml 413 ml Other 200 ml 200 ml Output Urine Total 250 ml 250 ml 300 ml # Bowel Movements 0 1 1 Imaging Last Impressions Chest X-Ray 12/16/17 0600 Signed Impressions: Service Date/Time: Saturday, December 16, 2017 02:55 - CONCLUSION: 1. Worsening right basilar consolidation/effusion. 2. Nasogastric tube has been pulled back. The side-port is now above the GE junction. 3. Stable cardiomegaly Mahendra Poe MD Liver Ultrasound 12/11/17 0000 Signed Impressions: Service Date/Time: Monday, December 11, 2017 13:59 - CONCLUSION: 1. Liver is prominent with no focal mass lesions or fatty infiltration. 2. Trace fluid about the liver. 3. Bilateral pleural effusions. Mahendra Poe MD Chest CT 12/04/17 1154 Signed Impressions: Service Date/Time: Monday, December 04, 2017 12:43 - CONCLUSION: Probable mild congestive failure with trace pleural effusions. No evidence for mass. Jean-Paul Hoffmann MD FACR Head CT 12/04/17 1126 Signed Impressions: Service Date/Time: Monday, December 04, 2017 12:37 - CONCLUSION: Stable brain appearance. No acute intracranial findings Anam Rojas MD Neck Magnetic Resonance Angiography 12/04/17 0000 Signed Impressions: Service Date/Time: Monday, December 04, 2017 20:36 - CONCLUSION: 1. Mild plaque at the right carotid bulb/proximal internal carotid artery without significant stenosis. 2. Significant opacification of the aortic arch and origins of the great vessels is not present. These areas cannot be evaluated. Anam Donis MD Head Magnetic Resonance Angiography 12/04/17 0000 Signed Impressions: Service Date/Time: Monday, December 04, 2017 20:36 - CONCLUSION: No acute disease. Anam Donis MD Brain MRI 12/04/17 0000 Signed Impressions: Service Date/Time: Monday, December 04, 2017 20:36 - CONCLUSION: 1. Small punctate areas of signal abnormality in the posterior left temporal lobe which may represent small focal areas of acute infarction. 2. Several areas of signal abnormality in the basal ganglia and left posterior temporal lobes likely from prior hemorrhage. 3. Demyelination within the cerebral and pontine white matter likely from small vessel ischemic change. Anam Donis MD Laboratory Test 12/15/17 21:40 12/16/17 03:35 Activated Partial Thromboplast Time 24.7 SEC White Blood Count 8.3 TH/MM3 Red Blood Count 2.94 MIL/MM3 Hemoglobin 8.3 GM/DL Hematocrit 24.6 % Mean Corpuscular Volume 83.6 FL Mean Corpuscular Hemoglobin 28.1 PG Mean Corpuscular Hemoglobin Concent 33.6 % Red Cell Distribution Width 13.2 % Platelet Count 194 TH/MM3 Mean Platelet Volume 10.1 FL Blood Urea Nitrogen 71 MG/DL Creatinine 1.68 MG/DL Random Glucose 121 MG/DL Calcium Level 8.2 MG/DL Phosphorus Level 4.7 MG/DL Magnesium Level 2.4 MG/DL Sodium Level 144 MEQ/L Potassium Level 4.4 MEQ/L Chloride Level 105 MEQ/L Carbon Dioxide Level 30.2 MEQ/L Anion Gap 9 MEQ/L Estimat Glomerular Filtration Rate 30 ML/MIN Date/Time Source Procedure Growth Status 12/12/17 07:29 Blood Peripheral Aerobic Blood Culture - Preliminary NO GROWTH IN 4 DAYS Resulted 12/12/17 07:29 Blood Peripheral Anaerobic Blood Culture - Preliminary NO GROWTH IN 4 DAYS Resulted 12/04/17 14:50 Cerebral Spinal Fluid Lumbar Puncture Fungal Smear - Final NO FUNGAL ELEMENTS SEEN. Resulted 12/04/17 14:50 Cerebral Spinal Fluid Lumbar Puncture Fungal Culture - Preliminary NO GROWTH IN 1 WEEK Resulted 12/12/17 12:00 Sputum Endotracheal Gram Stain - Final Complete 12/12/17 12:00 Sputum Endotracheal Sputum Culture - Final MODERATE GROWTH NORMAL RESPIRATORY GURMEET Complete 12/12/17 17:30 Urine Clean Catch Urine Culture - Final NO GROWTH IN 48 HOURS. Complete Physical Examination HEENT: PERRL; normocephalic; atraumatic; no jaundice. intubated CHEST: CTA CARDIAC: RRR ABDOMEN: Soft, nondistended, nontender; no hepatosplenomegaly; bowel sounds are present in all four quadrants. EXTREMITIES: No clubbing, cyanosis, or edema. + soft restraints SKIN: Normal; no rash; no jaundice. TEST SKEIN WINDER: awake (Yarelis Sweeney) Assessment and Plan Plan ASSESSMENT - dysphagia, need for prolonged mechanical ventilation - GI consulted for PEG tube placement. slow vent weaning. d/w daughter Isela Pires and she is agreeable to proceed. d/w RN. - NSTEMI, ischemic stroke - per [facility] Plan - EGD with PEG tube placement - hold TF after midnight - 1g ancef senior contract specialist - hold am sq heparin - obtain consent pt seen by myself and Dr Ellsworth and this note is on his behalf (Yarelis Sweeney) Plan Patient was seen and examined, agree with above note, we will plan on doing PEG tube tomorrow (Rola Ellsworth MD) Yarelis Sweeney December 16, 2017 15:14 Rola Ellsworth MD December 16, 2017 22:06
[2017-12-16] MEDS: THIAMINE INJ 100 MG in SODIUM CHLORIDE 0.9% INJ 100 ML IV SCH (16:22)
[2017-12-16] MEDS: RESP: ALBUTEROL 2.5 MG/IPRATROPIUM 0.5 MG NEB (PRN) INH (20:15)
--- NOTE | 2017-12-16 20:30 | PD.CONS ---
HPI Service General Surgery Consult Requested By Dr. De La Vega Reason for Consult Need for tracheostomy Primary Care Physician Non-Staff History of Present Illness 77 yo F with prolonged ventilation since 12/05 after admission for left MCA CVA complicated by atrial fib with RVR and NSTEMI. She has been unable to be weaned from the ventilator and tracheostomy is requested. Review of Systems ROS Limitations: Intubated Past Family Social History Past Medical History Hypertension Previous CVA Past Surgical History Cataract Breast augmentation Allergies: Coded Allergies: doxycycline (Unverified Allergy, Severe, 12/04/17) ALTERED MENTAL STATUS minocycline (Unverified Allergy, Severe, 12/04/17) ALTERED MENTAL STATUS tigecycline (Unverified Allergy, Severe, 12/04/17) ALTERED MENTAL STATUS Active Ordered Medications Current Medications Medications (Trade) Dose Ordered Sig/April Route Start Time Stop Time Status Last Admin (Duoneb Neb) 1 ampule Q2HR NEB PRN INH 12/04/17 14:00 12/16/17 20:15 Miscellaneous Information 1 Q361D XX 12/04/17 14:00 (Chlorhexidine 2% Cloth) Taper DAILY@04 TOP 12/05/17 04:00 12/01/18 03:59 12/15/17 04:00 (Chlorhexidine 2% Cloth) 3 pack UNSCH PRN TOP 12/04/17 14:00 (Mera-Colace) 1 tab BID PO 12/04/17 21:00 12/16/17 19:30 (Milk Of Magnesia Liq) 30 ml Q12H PRN PO 12/04/17 14:00 (Senokot) 17.2 mg Q12H PRN PO 12/04/17 14:00 (Dulcolax Supp) 10 mg DAILY PRN RECTAL 12/04/17 14:00 (Lactulose Liq) 30 ml DAILY PRN PO 12/04/17 14:00 (D50w (Vial) Inj) 50 ml UNSCH PRN IV PUSH 12/04/17 14:00 (Glucagon Inj) 1 mg UNSCH PRN OTHER 12/04/17 14:00 Thiamine HCl 100 mg/Sodium Chloride 101 ml @ 101 mls/hr DAILY@1800 IV 12/04/17 18:00 12/16/17 16:22 (Peridex 0.12% Liq) 15 ml BID@08,20 MT 12/04/17 20:00 12/16/17 19:37 (NS Flush) 2 ml UNSCH PRN IVF 12/05/17 04:15 12/09/17 08:01 (NS Flush) 2 ml BID IV FLUSH 12/05/17 09:00 12/16/17 19:37 Heparin Sodium/ Dextrose 250 ml @ 7.72 mls/hr TITRATE PRN IV 12/05/17 07:00 Future Hold 12/13/17 15:14 (Pepcid) 10 mg Q12HR PO 12/06/17 09:00 12/16/17 19:36 (Aspirin Chew) 81 mg DAILY NG 12/07/17 09:00 12/16/17 09:56 Potassium Chloride 100 ml @ 50 mls/hr Q2H PRN IV 12/09/17 08:00 Potassium Chloride 100 ml @ 50 mls/hr Q2H PRN IV 12/09/17 08:00 12/13/17 15:08 (K-Lyte Cl Eff) 50 meq UNSCH PRN PO 12/09/17 08:00 Potassium Chloride 100 ml @ 25 mls/hr UNSCH PRN IV 12/09/17 08:00 Potassium Chloride 100 ml @ 50 mls/hr Q2H PRN IV 12/09/17 08:00 12/09/17 10:23 Magnesium Sulfate 4 gm/Sodium Chloride 100 ml @ 50 mls/hr UNSCH PRN IV 12/09/17 08:00 (Mag-Ox) 800 mg UNSCH PRN PO 12/09/17 08:00 Magnesium Sulfate 2 gm/Sodium Chloride 100 ml @ 50 mls/hr UNSCH PRN IV 12/09/17 08:00 (K-Phos) 2,000 mg Q4H PRN PO 12/09/17 08:00 Sodium Phosphate 30 mmol/Sodium Chloride 250 ml @ 42 mls/hr UNSCH PRN IV 12/09/17 08:00 (K-Phos) 2,000 mg UNSCH PRN PO/TUBE 12/09/17 08:00 Potassium Phosphate 30 mmol/ Sodium Chloride 260 ml @ 42 mls/hr UNSCH PRN IV 12/09/17 08:00 (NovoLIN R SUPPLEMENTAL SCALE) 1 Q6H SQ 12/09/17 10:00 (Lopressor) 25 mg Q6H PO 12/09/17 14:00 12/13/17 20:31 Lactated Ringer's 1,000 ml @ 100 mls/hr Q10H IV 12/13/17 07:30 12/16/17 14:41 Dexmedetomidine HCl 200 mcg/ Sodium Chloride 52 ml @ 3.82 mls/hr TITRATE PRN IV 12/13/17 15:45 12/16/17 18:13 (fentaNYL INJ) 50 mcg Q2H PRN IV PUSH 12/14/17 09:45 (Cordarone) 200 mg Q12HR PO 12/14/17 21:00 12/16/17 09:56 (Heparin Inj) 5,000 units Q12HR SQ 12/15/17 21:00 Future Hold 12/16/17 09:57 Cefazolin Sodium 1000 mg/Sodium Chloride 100 ml @ 200 mls/hr AMMUNITION SPECIALIST IV 12/16/17 15:45 12/19/17 15:44 Family History Noncontributory Social History Per EMR, she drinks 2 alcoholic beverages daily and smokes 5 cigarettes daily. Physical Exam Vital Signs Vital Signs Date Time Temp Pulse Resp B/P (MAP) Pulse Ox O2 Delivery O2 Flow Rate FiO2 12/16/17 20:16 95 30 12/16/17 20:00 54 12/16/17 20:00 30 12/16/17 20:00 99.8 55 24 145/60 (88) 100 12/16/17 18:00 55 12/16/17 16:00 30 12/16/17 16:00 98.3 60 24 150/65 (93) 98 12/16/17 16:00 60 12/16/17 15:37 99 30 12/16/17 14:00 57 12/16/17 12:07 99 30 12/16/17 12:00 57 12/16/17 12:00 98.9 57 14 137/61 (86) 98 12/16/17 12:00 30 12/16/17 11:55 30 12/16/17 10:00 55 12/16/17 10:00 30 12/16/17 08:02 98 30 12/16/17 08:00 30 12/16/17 08:00 99.2 54 11 129/62 (84) 98 12/16/17 08:00 54 12/16/17 06:00 54 12/16/17 04:30 56 0 125/57 (79) 99 12/16/17 04:19 100 30 12/16/17 04:01 58 32 135/60 (85) 100 12/16/17 04:00 99.0 58 23 100 12/16/17 04:00 58 12/16/17 04:00 30 12/16/17 03:31 54 22 123/58 (79) 99 12/16/17 03:30 54 26 98 12/16/17 03:00 55 26 131/60 (83) 99 12/16/17 02:30 54 16 124/57 (79) 98 12/16/17 02:00 54 16 128/58 (81) 99 12/16/17 02:00 54 12/16/17 01:40 100 30 12/16/17 01:30 54 17 132/60 (84) 100 12/16/17 01:00 57 17 138/63 (88) 100 12/16/17 00:30 53 16 128/59 (82) 100 12/16/17 00:00 53 12/16/17 00:00 30 12/16/17 00:00 98.0 53 16 125/58 (80) 100 12/15/17 23:30 54 25 124/59 (80) 100 12/15/17 23:00 53 16 123/58 (79) 100 12/15/17 22:30 53 24 128/60 (82) 100 12/15/17 22:03 96 30 12/15/17 22:00 53 12/15/17 22:00 53 16 126/59 (81) 100 12/15/17 21:30 52 16 124/59 (80) 100 12/15/17 21:00 53 18 124/59 (80) 100 12/15/17 20:30 53 21 130/60 (83) 100 Physical Exam GENERAL: Intubated and ventilated on CPAP. She is awake. HEAD: Normocephalic. Atraumatic. EYES: Pupils equal round and reactive to light bilaterally. No scleral icterus. ENT: Orotracheal tube in place. NECK: Trachea midline and easily palpable. No scars. CHEST: Currently tolerating CPAP ventilation. CARDIOVASCULAR: Regular rate and rhythm. ABDOMEN: Soft and nontender. EXTREMITIES: No cyanosis or edema. SKIN: Warm, dry, nonjaundiced. Laboratory Laboratory Tests Test 12/15/17 21:40 12/16/17 03:35 12/16/17 18:46 Activated Partial Thromboplast Time 24.7 23.4 White Blood Count 8.3 Red Blood Count 2.94 Hemoglobin 8.3 Hematocrit 24.6 Mean Corpuscular Volume 83.6 Mean Corpuscular Hemoglobin 28.1 Mean Corpuscular Hemoglobin Concent 33.6 Red Cell Distribution Width 13.2 Platelet Count 194 Mean Platelet Volume 10.1 Blood Urea Nitrogen 71 Creatinine 1.68 Random Glucose 121 Calcium Level 8.2 Phosphorus Level 4.7 Magnesium Level 2.4 Sodium Level 144 Potassium Level 4.4 Chloride Level 105 Carbon Dioxide Level 30.2 Anion Gap 9 Estimat Glomerular Filtration Rate 30 Date/Time Source Procedure Growth Status 12/12/17 07:29 Blood Peripheral Aerobic Blood Culture - Preliminary NO GROWTH IN 4 DAYS Resulted 12/12/17 07:29 Blood Peripheral Anaerobic Blood Culture - Preliminary NO GROWTH IN 4 DAYS Resulted 12/04/17 14:50 Cerebral Spinal Fluid Lumbar Puncture Fungal Smear - Final NO FUNGAL ELEMENTS SEEN. Resulted 12/04/17 14:50 Cerebral Spinal Fluid Lumbar Puncture Fungal Culture - Preliminary NO GROWTH IN 1 WEEK Resulted 12/12/17 12:00 Sputum Endotracheal Gram Stain - Final Complete 12/12/17 12:00 Sputum Endotracheal Sputum Culture - Final MODERATE GROWTH NORMAL RESPIRATORY GURMEET Complete 12/12/17 17:30 Urine Clean Catch Urine Culture - Final NO GROWTH IN 48 HOURS. Complete Result Diagram: 12/16/17 0335 12/16/17 0335 Assessment and Plan Assessment and Plan 77-year-old female with multiple acute medical problems unable to be weaned from the ventilator in need of tracheostomy. Will plan bedside percutaneous tracheostomy in conjunction with Dr. De La Vega. Marcelino Flor MD December 16, 2017 20:30
[2017-12-16] MEDS ORDERED: SODIUM CHLOR 0.9% IV PRN ×2 (22:30)
[2017-12-16] MEDS ORDERED: DEXMEDETOMIDINE IV PRN ×2 (22:30)
[2017-12-16] MEDS: DEXMEDETOMIDINE INJ 1,000 MCG in SODIUM CHLOR 0.9% 250 ML INJ 250 ML IV PRN (23:03)
[2017-12-17] VITALS (37 sets, daily range): BP systolic 113–187; BP diastolic 53–81; PULSE 52–87; RESP 16–43; TEMP 97.9–98.7; O2SAT 76–100
[2017-12-17] MEDS: LACTATED RINGER'S 1000 ML INJ 1,000 ML IV SCH ×2 (00:27→12:17)
[2017-12-17] MEDS: PROPOFOL 1000 MG/100 ML INJ 100 ML IV PRN ×5 (01:26→22:00)
[2017-12-17] MEDS: METOPROLOL TARTRATE 25 MG TAB PO SCH ×4 (02:00→19:13)
[2017-12-17] MEDS: CHLORHEXIDINE GLUCONATE 2 % 1 PACK (2 CLOTHS) TOP SCH (04:00)
[2017-12-17] MEDS: INSULIN NovoLIN REGULAR SUPPLEMENTAL SCALE SQ SCH ×4 (04:00→19:14)
--- NOTE | 2017-12-17 05:03 | RADRPT ---
EXAM DATE/TIME: 12/17/2017 04:04 [facility] COMPARISON: CHEST SINGLE AP, December 16, 2017, 2:55. INDICATIONS : Shortness of breath, possible pulmonary disease. MEDICAL HISTORY : Hypertension. SURGICAL HISTORY : None. ENCOUNTER: Subsequent ACUITY: 2 weeks PAIN SCORE: Non-responsive. LOCATION: Bilateral chest FINDINGS: A single view of the chest demonstrates persistent right-sided consolidation/effusion. Left lung erika ins clear. Heart size is prominent but stable. Nasogastric tube has been advanced further into the st omach. Life support tubes are otherwise stable. Right humeral medullary malaika and osseous screw CONCLUSION: 1. Persistent right basilar consolidation/effusion with cardiomegaly. 2. Nasogastric tube has been advanced further into the stomach. 3. Cardiomegaly Mahendra Poe MD on December 17, 2017 at 5:00 Board Certified Radiologist. This report was verified electronically.
[2017-12-17 06:54] LABS: HEMATOCRIT 23.5 % (35.0-46.0); HEMOGLOBIN 7.9 GM/DL (11.6-15.3); MEAN CELL VOLUME 82.4 FL (80.0-100.0); MEAN CORPUSCULAR HEMOGLOBIN 27.6 PG (27.0-34.0); MEAN CORPUSCULAR HGB CONC 33.5 % (32.0-36.0); MEAN PLATELET VOLUME 10.1 FL (7.0-11.0); PLATELET COUNT 207 TH/MM3 (150-450); RED BLOOD COUNT 2.85 MIL/MM3 (4.00-5.30); RED CELL DISTRIBUTION WIDTH 12.7 % (11.6-17.2)
[2017-12-17 07:28] LABS: BICARBONATE 30.4 MEQ/L (21.0-32.0); CALCIUM 8.4 MG/DL (8.5-10.1); CREATININE 1.51 MG/DL (0.50-1.00); MAGNESIUM 2.4 MG/DL (1.5-2.5)
[2017-12-17 07:29] LABS: PHOSPHORUS 4.7 MG/DL (2.5-4.9)
--- NOTE | 2017-12-17 07:39 | HHI.CCPN ---
Subjective Remarks/Hospital Course 77-year-old female who is apparently very active at baseline, with past medical history significant for hypertension and previous TIA, tobacco abuse. She was seen last normal yesterday night at 7 PM. Her friends checked on her today morning and was found down, disoriented, staring off to the left, not answering questions. I am not able to get much further history from her. She has a fever of 101 in the ER, initially and then spiked to 103.7. ER workup included a CT scan of head which was negative for acute findings. Lab work showed a white count of 15.9 with left shift, lactic acid was 3.4, troponin was elevated at 8.7. Cardiology Dr. Meza was contacted aspirin was given patient was recommended to be started on IV heparin but was held for LP. Lumbar puncture was unremarkable nevertheless patient was started on meningitic doses of vancomycin and Rocephin. I have added ampicillin 2 g IV every 4 hours, and acyclovir 680 mg IV every 8 hours. I evaluated the patient in the ICU. Patient is severely altered tachypneic in moderate distress. Patient is aphasic with left gaze preference diminished movements of the right upper and lower extremity. A bedside echo shows reduced EF approximately 20-25%, global hypokinesis. Patient has no history of cardiomyopathy to my knowledge. At this time his stroke cannot be ruled out. Stat MRI MRA had been ordered. Due to altered mentation tachypnea and lack of airway protection patient was intubated and placed on mechanical ventilation SUBJECTIVE: 12/05: Remains intubated sedated. MRI brain showing small punctate areas of signal abnormality in the posterior left temporal lobe-possible small focal areas of acute infarction. Also several areas of signal abnormality in the basal ganglia and left posterior temporal lobes likely from prior hemorrhage. Demyelination within the cerebral and pontine white matter likely from small vessel ischemic change. Neurology consult. Stat EEG is pending. Fever is down trending afebrile now, developed atrial fibrillation with RVR started on amiodarone infusion. I have resumed heparin infusion. 12/06: Afebrile. Last evening the patient had decreased mat requiring additional pressor support vasopressin added to medication regimen and diminished urinary output. Patient was noted to have significant elevation in creatinine this a.m. Patient remains on vasopressin and norepinephrine vasopressor support. Patient continues on amiodarone infusion, plan to transition to p.o.. Sedation vacation initiated yesterday for EEG, per report patient following commands. Sedation vacation in progress at this time. Noticed slight elevation in WBC count, repeat urine culture pending. 12/07: Remains intubated sedated. Currently on IV heparin infusion, amiodarone infusion and vasopressin gtt to maintain MAP >65. Had developed acute kidney injury yesterday creatinine had bumped to 2. Urine output 550 mL in the last 24 hours. CMP today is pending. On sedation hold patient opens eyes weakly moves extremities do not follow commands. Remains severely encephalopathy 12/08: No events over the night. Patient remains encephalopathic, opens eyes to voice stimuli, but does not consistently follow commands. She remains on amiodarone and heparin infusions, no pressors. T-max of 99.6. I/O 2250/960, more than 11 L positive since admission if correctly documented. 12/09: Few episodes of A. fib with RVR over the night. T-max of 99.1. Patient remains intubated and sedated. No family present at bedside. 12/10: No events over the night. Patient is more awake this a.m. 30 with propofol. Good response to diuresis, T-max 100.1. In telemetry, patient currently in sinus rhythm and she continues to be on amiodarone infusion. 12/11: No events over the night. T-max of 100.2. On 35 off propofol this morning, arousable, following some commands. Diuresing well with Lasix. She remains in sinus rhythm. 12/12: Patient remains intubated and sedated, on propofol at 35. Yesterday patient tolerated CPAP trials for a little less than 2 hours. Afebrile, with a T-max of 99.8. I/O 2069/2099. Patient is arousable, tracking, following some commands. 12/13: No events over the night. T-max of 99.9. Patient is awake, on some sedation, following some commands. Urine dark with some sediment. 12/14: Patient developed worsening hematuria over the night therefore I stopped heparin drip this morning. Yesterday she tolerated CPAP for approximately 2 hours then she became tachypneic. Sedation was changed to Precedex and propofol was stopped, patient is awake and calm following commands. Still significant amount of sputum secretions. T-max of 99.1. I/O 2485/1125. 12/15: Tmax 100.2. The patient continues on Precedex infusion, with a RASS -1. No active signs of bleeding, no hematuria noted. Subcu heparin DVT prophylaxis instituted. 12/16: T-max 100.3. Patient awake and responsive on Precedex infusion. Discussion with family planned for tracheostomy and PEG placement, due to slow vent weaning. Patient continues on CPAP trials. Creatinine slightly more elevated today IV infusion increased to 100 cc/hr. 12/17: T-max 99.8. Patient tolerated CPAP trials for greater than 10 hours yesterday, on Precedex infusion. During the night the patient was more agitated , propofol infusion initiated, Precedex infusion discontinued. Plans for tracheostomy and PEG placement today. Patient continues on IV fluid 100 cc/ hour BMP pending. Objective Vital Signs Date Time Temp Pulse Resp B/P (MAP) Pulse Ox O2 Delivery O2 Flow Rate FiO2 12/17/17 06:00 52 12/17/17 04:05 96 30 12/17/17 04:00 97.9 16 113/53 (73) Intake and Output 12/17/17 12/17/17 12/18/17 08:00 16:00 00:00 Intake Total 276 ml Output Total 400 ml Balance -124 ml Result Diagram: 12/17/17 0510 12/16/17 0335 Imaging Last Impressions Chest X-Ray 12/17/17 0600 Signed Impressions: Service Date/Time: December 04:04 - CONCLUSION: 1. Persistent right basilar consolidation/effusion with cardiomegaly. 2. Nasogastric tube has been advanced further into the stomach. 3. Cardiomegaly Mahendra Poe MD Liver Ultrasound 12/11/17 0000 Signed Impressions: Service Date/Time: Monday, December 11, 2017 13:59 - CONCLUSION: 1. Liver is prominent with no focal mass lesions or fatty infiltration. 2. Trace fluid about the liver. 3. Bilateral pleural effusions. Mahendra Poe MD Chest CT 12/04/17 1154 Signed Impressions: Service Date/Time: Monday, December 04, 2017 12:43 - CONCLUSION: Probable mild congestive failure with trace pleural effusions. No evidence for mass. Jean-Paul Hoffmann MD FACR Head CT 12/04/17 1126 Signed Impressions: Service Date/Time: Monday, December 04, 2017 12:37 - CONCLUSION: Stable brain appearance. No acute intracranial findings Anam Rojas MD Neck Magnetic Resonance Angiography 12/04/17 0000 Signed Impressions: Service Date/Time: Monday, December 04, 2017 20:36 - CONCLUSION: 1. Mild plaque at the right carotid bulb/proximal internal carotid artery without significant stenosis. 2. Significant opacification of the aortic arch and origins of the great vessels is not present. These areas cannot be evaluated. Anam Donis MD Head Magnetic Resonance Angiography 12/04/17 0000 Signed Impressions: Service Date/Time: Monday, December 04, 2017 20:36 - CONCLUSION: No acute disease. Anam Donis MD Brain MRI 12/04/17 0000 Signed Impressions: Service Date/Time: Monday, December 04, 2017 20:36 - CONCLUSION: 1. Small punctate areas of signal abnormality in the posterior left temporal lobe which may represent small focal areas of acute infarction. 2. Several areas of signal abnormality in the basal ganglia and left posterior temporal lobes likely from prior hemorrhage. 3. Demyelination within the cerebral and pontine white matter likely from small vessel ischemic change. Anam Donis MD Last 24 hours Impressions Chest X-Ray 12/14/17599 Signed Impressions: Service Date/Time: Thursday, December 14, 2017 01:38 - CONCLUSION: 1. Improving aeration in the left base with some minimal atelectatic changes. 2. Right basilar consolidation and associated effusion may also be slightly better. 3. Stable cardiomegaly. Stable position of life support tubes Mahendra Poe MD Last 24 hours Impressions Chest X-Ray 12/12/17 0000 Signed Impressions: Service Date/Time: Tuesday, December 12, 2017 06:50 - CONCLUSION: No significant change has occurred. Philippe Peters MD Last 24 hours Impressions Chest X-Ray 12/10/17599 Signed Impressions: Service Date/Time: November 03:55 - CONCLUSION: 1. Right basilar density unchanged likely small pleural effusion and associated density. 2. Cardiomegaly. Gideon Lin MD Last 24 hours Impressions Chest X-Ray 12/08/17 0600 Signed Impressions: Service Date/Time: Friday, December 08, 2017 03:05 - CONCLUSION: 1. Endotracheal tube and nasogastric tube in satisfactory position. Mild basilar airspace disease persists. Shay Rausch MD Last Impressions Chest X-Ray 12/05/17 0000 Signed Impressions: Service Date/Time: Tuesday, December 05, 2017 13:23 - CONCLUSION: 1. Interval placement of a right subclavian central venous catheter with the tip projecting over the central venous system. No pneumothorax 2. Lungs remain hyperinflated with probable bibasilar atelectasis. 3. Compensated cardiomegaly. Mahendra Poe MD Chest CT 12/04/17 1154 Signed Impressions: Service Date/Time: Monday, December 04, 2017 12:43 - CONCLUSION: Probable mild congestive failure with trace pleural effusions. No evidence for mass. Jean-Paul Hoffmann MD FACR Head CT 12/04/17 1126 Signed Impressions: Service Date/Time: Monday, December 04, 2017 12:37 - CONCLUSION: Stable brain appearance. No acute intracranial findings Anam Rojas MD Neck Magnetic Resonance Angiography 12/04/17 0000 Signed Impressions: Service Date/Time: Monday, December 04, 2017 20:36 - CONCLUSION: 1. Mild plaque at the right carotid bulb/proximal internal carotid artery without significant stenosis. 2. Significant opacification of the aortic arch and origins of the great vessels is not present. These areas cannot be evaluated. Anam Donis MD Head Magnetic Resonance Angiography 12/04/17 0000 Signed Impressions: Service Date/Time: Monday, December 04, 2017 20:36 - CONCLUSION: No acute disease. Anam Donis MD Brain MRI 12/04/17 0000 Signed Impressions: Service Date/Time: Monday, December 04, 2017 20:36 - CONCLUSION: 1. Small punctate areas of signal abnormality in the posterior left temporal lobe which may represent small focal areas of acute infarction. 2. Several areas of signal abnormality in the basal ganglia and left posterior temporal lobes likely from prior hemorrhage. 3. Demyelination within the cerebral and pontine white matter likely from small vessel ischemic change. Anam Donis MD Procedures 5/3 Pending PEG 5/3 Pending Trach Objective Remarks General -This is a well-developed well-nourished elderly female chronically ill- appearing, weak, responsive HEENT - pupils are equal and reactive, sclerae are anicteric, neck is supple, neck veins are distended, + ETT, + NGT, right subclavian line in place -site remains clean CV - irregular heart sounds, no murmurs, rubs or gallop Chest - still has scattered coarse breath sounds b/l, good air entry, no wheezes Abdomen - soft, non-distended, non-tender, BS present Extremities - 2+ edema over both upper and lower extremities, + peripheral pulses, warm Neuro - RASS -2. intubated, awake, follows some commands, wiggles toes and squeezes fingers bilaterally, right stronger than left A/P Problem List: (1) Acute metabolic encephalopathy ICD Code: G93.41 - Metabolic encephalopathy Status: Acute (2) Paroxysmal atrial fibrillation with rapid ventricular response ICD Code: I48.0 - Paroxysmal atrial fibrillation Status: Acute (3) Lactic acidemia ICD Code: E87.2 - Acidosis Status: Acute (4) Cardiomyopathy ICD Code: I42.9 - Cardiomyopathy, unspecified Status: Chronic (5) Non-ST elevation SC (NSTEMI) ICD Code: I21.4 - Non-ST elevation (NSTEMI) myocardial infarction Status: Acute (6) Severe sepsis ICD Code: A41.9 - Sepsis, unspecified organism; R65.20 - Severe sepsis without septic shock Status: Acute (7) Altered mental status ICD Code: R41.82 - Altered mental status, unspecified Status: Acute (8) Hypertension ICD Code: I10 - Hypertension Status: Chronic (9) LAI (acute kidney injury) ICD Code: N17.9 - Acute kidney failure, unspecified Status: Acute (10) Metabolic acidosis ICD Code: E87.2 - Acidosis Status: Acute Assessment and Plan Assessment Acute encephalopathy -very slowly improving, but she remains weak 2. Ischemic stroke- LMCA 3. Acute respiratory failure from lack of airway protection, on minimal O2 requirement, attempting CPAP trials every day 4. NSTEMI 5. Cardiomyopathy, with reduced EF, possible viral myocarditis 6. Atrial fibrillation with RVR -heart rate better controlled 7. Circulatory shock -patient remains off pressors 8. LAI -creatinine is improving, urine output is appropriate 9. Severe metabolic acidosis - resolved 10. Volume overload -positive more than 11 L since admission, improved with diuresis 11. Elevated liver enzymes -gradually trending down 12. Hematuria-resolved 13 VDRF PLAN 1. Patient switched to CPAP, 15/5 and 30% O2. To use CPAP trials. Tentative plan for tracheostomy 12/17 2. Vent bundle and bronchodilators 3. 5 Precedex discontinued, propofol infusion 50 mcgs/kg/hr 4. Heparin infusion discontinued due to hematuria(12/14) 5. Continue metoprolol and amiodarone 6. Lasix is discontinued since patient is developing contraction alkalosis, BUN and creatinine trending up.IV hydration increased 12/16 LR at 100 mL's per hour 7. Off antibiotics per ID 8. Central line right subclavian (12/05), arterial line was removed 9. GI and DVT prophylaxis addressed 10. 12/17 Tube feeds on hold for PEG placement today No family present at bedside. I telephoned patient's daughter Isela Pires and provided medical status update and plan for trach and PEG today. Level 3 follow-up Discussed with ORTHOPEDIC PHYSICAL THERAPIST at bedside (Angelika) Physician Evelin De La Vega Problem Qualifiers (1) Altered mental status: (2) Hypertension: Qualified Codes: I10 - Essential (primary) hypertension Evelin De La Vega MD December 17, 2017 07:39
[2017-12-17] MEDS: CHLORHEXIDINE 0.12% (ORAL KIT) 15 ML CUP MT SCH ×2 (08:00→19:16)
[2017-12-17] MEDS: DOCUSATE SODIUM 50 MG/SENNA 8.6 MG TAB PO SCH ×2 (08:48→19:13)
[2017-12-17] MEDS: SODIUM CHLORIDE FLUSH BID IV FLUSH SCH ×2 (08:48→19:13)
[2017-12-17] MEDS: AMIODARONE 200 MG TAB PO SCH ×2 (08:48→19:16)
[2017-12-17] MEDS: HEPARIN SODIUM - SQ 10,000 UNITS/ML VIAL SQ SCH (08:48)
[2017-12-17] MEDS: ASPIRIN 81 MG CHEW TAB NG SCH (08:48)
[2017-12-17] MEDS: FAMOTIDINE 20 MG TAB PO SCH ×2 (08:49→19:16)
[2017-12-17] MEDS ORDERED: ROCURONIUM INJ 50 MG/5 ML VIAL ONE ×2 (10:44→11:22)
[2017-12-17] MEDS ORDERED: ceFAZolin 2 GM PREMIX 50 ML IV ONE (11:00)
--- NOTE | 2017-12-17 11:12 | PD.PROCEDR ---
GI Procedure PROCEDURE PERFORMED Upper endoscopy, biopsy, PEG tube placement INDICATION FOR PROCEDURE Dysphagia, and is intubated need feeding route PROCEDURE: The procedure, risks and benefits were discussed with Ms. Rausch and informed consent was obtained. Anesthesia sedated her with Diprivan. She was placed in the left lateral decubitus position. EGD: The Pentax videoscope was introduced through the oropharynx and advanced to the second portion of the duodenum under direct visualization. Retroflexion was performed in the stomach. The area for the PEG tube was identified by illumination and indentation in the left upper quadrant the area was sterilized with Betadine, injected with lidocaine, a 20 Congolese Microvasive PEG tube was placed with a pull technique without any difficulty, verification of the PEG tube was done endoscopically, biopsy was done from the antrum from gastritis ESTIMATED BLOOD LOSS: None SPECIMENS REMOVED: Antrum for gastritis COMPLICATIONS: none IMPRESSION: Esophagus normal Stomach mild to moderate gastritis biopsy was done. 20 Congolese Microvasive PEG tube was placed with a pull technique without any immediate complication Duodenum normal PLAN: Continue PPI Follow-up biopsy N.p.o. for 6 hours then use PEG tube for feeding and medication Rola Ellsworth MD December 17, 2017 11:12
--- NOTE | 2017-12-17 11:13 | HHI.GIFU ---
Subjective Remarks Patient opening her eyes, still intubated, seems to be comfortable Objective Vitals I&O Vital Signs Date Time Temp Pulse Resp B/P (MAP) Pulse Ox O2 Delivery O2 Flow Rate FiO2 12/17/17 10:30 63 12/17/17 10:10 95 30 12/17/17 10:00 63 12/17/17 09:30 63 12/17/17 09:01 59 12/17/17 08:30 57 12/17/17 08:00 53 12/17/17 06:00 52 12/17/17 04:05 96 30 12/17/17 04:00 56 12/17/17 04:00 97.9 56 16 113/53 (73) 100 12/17/17 04:00 30 12/17/17 02:00 56 12/17/17 00:47 97 30 12/17/17 00:00 30 12/17/17 00:00 58 12/17/17 00:00 98.7 58 16 127/58 (81) 97 12/16/17 22:00 53 12/16/17 20:16 95 30 12/16/17 20:00 54 12/16/17 20:00 30 12/16/17 20:00 99.8 55 24 145/60 (88) 100 12/16/17 18:00 55 12/16/17 16:00 30 12/16/17 16:00 98.3 60 24 150/65 (93) 98 12/16/17 16:00 60 12/16/17 15:37 99 30 12/16/17 14:00 57 12/16/17 12:07 99 30 12/16/17 12:00 57 12/16/17 12:00 98.9 57 14 137/61 (86) 98 12/16/17 12:00 30 12/16/17 11:55 30 I/O 12/16/17 12/16/17 12/16/17 12/17/17 12/17/17 12/17/17 07:00 15:00 23:00 07:00 15:00 23:00 Intake Total 1195 ml 393 ml 1328 ml Output Total 300 ml 425 ml 400 ml Balance 895 ml -32 ml 928 ml IV Total 582 ml 101 ml 1052 ml Tube Feeding 413 ml 92 ml 156 ml Other 200 ml 200 ml 120 ml Output Urine Total 300 ml 425 ml 400 ml # Bowel Movements 1 1 Laboratory Laboratory Tests Test 12/16/17 18:46 12/17/17 05:10 Activated Partial Thromboplast Time 23.4 White Blood Count 10.0 Red Blood Count 2.85 Hemoglobin 7.9 Hematocrit 23.5 Mean Corpuscular Volume 82.4 Mean Corpuscular Hemoglobin 27.6 Mean Corpuscular Hemoglobin Concent 33.5 Red Cell Distribution Width 12.7 Platelet Count 207 Mean Platelet Volume 10.1 Blood Urea Nitrogen 65 Creatinine 1.51 Random Glucose 92 Calcium Level 8.4 Phosphorus Level 4.7 Magnesium Level 2.4 Sodium Level 144 Potassium Level 4.2 Chloride Level 105 Carbon Dioxide Level 30.4 Anion Gap 9 Estimat Glomerular Filtration Rate 34 Date/Time Source Procedure Growth Status 12/12/17 07:29 Blood Peripheral Aerobic Blood Culture - Final NO GROWTH IN 5 DAYS Complete 12/12/17 07:29 Blood Peripheral Anaerobic Blood Culture - Final NO GROWTH IN 5 DAYS Complete 12/04/17 14:50 Cerebral Spinal Fluid Lumbar Puncture Fungal Smear - Final NO FUNGAL ELEMENTS SEEN. Resulted 12/04/17 14:50 Cerebral Spinal Fluid Lumbar Puncture Fungal Culture - Preliminary NO GROWTH IN 1 WEEK Resulted 12/12/17 12:00 Sputum Endotracheal Gram Stain - Final Complete 12/12/17 12:00 Sputum Endotracheal Sputum Culture - Final MODERATE GROWTH NORMAL RESPIRATORY GURMEET Complete 12/12/17 17:30 Urine Clean Catch Urine Culture - Final NO GROWTH IN 48 HOURS. Complete Physical Exam HEENT: Pupils round and reactive to light; normocephalic; atraumatic; no jaundice. Throat is clear. Intubated NECK: Neck is supple, no JVD, no lymphadenopathy. CHEST: Chest is clear to auscultation and percussion. CARDIAC: Regular rate and rhythm with no murmur gallop or rubs. ABDOMEN: Soft, nondistended, nontender; no hepatosplenomegaly; bowel sounds are present in all four quadrants. EXTREMITIES: No clubbing, cyanosis, or edema. SKIN: Normal; no rash; no jaundice. 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 Patient was given Ancef for the procedure to prevent infection IMPRESSION: Esophagus normal Stomach mild to moderate gastritis biopsy was done. 20 [place] Microvasive PEG tube was placed with a pull technique without any immediate complication Duodenum normal PLAN: Continue PPI Follow-up biopsy N.p.o. for 6 hours then use PEG tube for feeding and medication Rola Ellsworth MD December 17, 2017 11:13
[2017-12-17] MEDS ORDERED: MIDAZOLAM HCL 5 MG/ML VIAL (1 ML) ONE (11:21)
[2017-12-17] MEDS ORDERED: MIDAZOLAM HCL 2 MG/2 ML VIAL IV PUSH ONE (11:30)
[2017-12-17] MEDS ORDERED: ROCURONIUM INJ 50 MG/5 ML VIAL IV ONE (11:30)
[2017-12-17] MEDS ORDERED: fentaNYL CITRATE 250 MCG/5 ML AMP IV PUSH ONE (11:30)
--- NOTE | 2017-12-17 11:43 | PD.PROCEDR ---
Procedure Note Procedure Procedure: Fiberoptic Bronchoscopy Diagnosis: Ventilator dependent respiratory failure Indications: Percutaneous tracheostomy placement Consent: Obtained from daughter, Ms. Pires Anesthesia: See [facility] Description of the Procedure: The patient was sedated and mechanically ventilated. The patient was placed on 100% FIO2 and a volume control mode of ventilation. The fiberoptic bronchoscopy was inserted via 7.5 ETT. The trachea, right and left mainstem bronchi, and sub-segmental bronchi were evaluated. The endobronchial anatomy was normal. Findings: Normal anatomy BAL samples: None The patient tolerated the procedure well with no hemodynamic instability or hypoxia. There were no immediate complications noted. At the conclusion of the procedure, the patient was placed back on their pre-procedure ventilatory settings. There was minimal EBL. A chest x-ray has been ordered. I personally performed the procedure. Evelin De La Vega MD December 17, 2017 11:43
--- NOTE | 2017-12-17 12:24 | RADRPT ---
EXAM DATE/TIME: 12/17/2017 11:59 [facility] COMPARISON: CHEST SINGLE AP, December 17, 2017, 4:04. INDICATIONS : S/p tracheostomy MEDICAL HISTORY : Hypertension. Stroke. TIA, anticoagulant theray SURGICAL HISTORY : peg tube ENCOUNTER: Initial ACUITY: 2 weeks PAIN SCORE: Non-responsive. LOCATION: Bilateral chest FINDINGS: A single AP erect portable view of the chest was obtained and demonstrates interval placement of trac heostomy tube. The endotracheal tube and nasogastric tube have been removed. The right subclavian carolyn tral venous line remains in place. Hazy opacity remains in the right lung blunting the right costophr enic angle. The heart size remains moderately enlarged. The bony thorax is stable with scoliosis and postsurgical change of the right humerus. CONCLUSION: 1. Interval extubation and placement of tracheostomy tube. 2. Stable opacity in the right lung with blunting of the right costophrenic angle consistent with eff usion. Hari Stewart MD on December 17, 2017 at 12:21 Board Certified Radiologist. This report was verified electronically.
--- NOTE | 2017-12-17 12:54 | PD.OP ---
cc: Marcelino Flor MD Operative Report Date of Surgery: December 17, 2017 Preoperative Diagnosis: (1) Respiratory failure Postoperative Diagnosis: (1) Respiratory failure Procedure: Percutaneous tracheostomy Anesthesia: IV per auto refinisher Surgeon: Marcelino Flor Web Application Developer(s): Bronchoscopist Dr. Evelin De La Vega Operation and Findings: EBL: 5 cc Procedure in detail: The patient remained in his intensive care unit bed. He was placed in supine position with the neck slightly hyperextended. The patient was administered sedative and paralytic medications per Dr. De La Vega of intensive care. The anterior neck was prepped and draped in usual sterile fashion. A 1 cm incision was made about 1 fingerbreadth superior to the sternal notch. Minimal blunt dissection was carried out. The bronchoscope was inserted down the endotracheal tube which was withdrawn past the site of the anticipated entry into the trachea. The large-bore needle and catheter were inserted through the anterior trachea and there was air aspirated into the syringe. The wire fed easily and this was also visualized via the bronchoscope. The tract was then serially dilated with the punch dilator and the Blue Rhino dilator. The Shiley #8 tracheostomy tube with guide was placed over the wire and easily entered the trachea. This was also visualized bronchoscopically. The bronchoscope was inserted down the trach tube and the position again confirmed. The cuff was inflated and the apparatus switched to the trach tube. There was adequate tidal volumes. The trach was sutured in place with 4 separate 2-0 Prolene sutures. A dressing and trach collar was applied. The patient tolerated procedure well and remained in his intensive care unit bed. Marcelino Flor MD December 17, 2017 12:54
[2017-12-17] MEDS: THIAMINE INJ 100 MG in SODIUM CHLORIDE 0.9% INJ 100 ML IV SCH (17:44)
[2017-12-18] VITALS (39 sets, daily range): BP systolic 107–182; BP diastolic 58–117; PULSE 56–73; RESP 16–35; TEMP 97.5–99.1; O2SAT 98–100
[2017-12-18] MEDS: LACTATED RINGER'S 1000 ML INJ 1,000 ML IV SCH ×2 (02:17→06:45)
[2017-12-18] MEDS: METOPROLOL TARTRATE 25 MG TAB PO SCH ×4 (02:17→19:57)
[2017-12-18] MEDS: CHLORHEXIDINE GLUCONATE 2 % 1 PACK (2 CLOTHS) TOP SCH (02:18)
[2017-12-18] MEDS: INSULIN NovoLIN REGULAR SUPPLEMENTAL SCALE SQ SCH ×4 (02:18→21:29)
[2017-12-18] MEDS: PROPOFOL 1000 MG/100 ML INJ 100 ML IV PRN (02:20)
--- NOTE | 2017-12-18 05:34 | RADRPT ---
EXAM DATE/TIME: 12/18/2017 04:10 [facility] COMPARISON: CHEST SINGLE AP, December 17, 2017, 11:59. INDICATIONS : Shortness of breath. MEDICAL HISTORY : Hypertension. Stroke. TIA, anticoagulant therapy. SURGICAL HISTORY : Peg tube. ENCOUNTER: Subsequent ACUITY: 2 weeks PAIN SCORE: Non-responsive. LOCATION: chest FINDINGS: Tracheostomy and right subclavian central catheter are stable. There has been slight interval worseni ng in aeration with persistent hazy density over the right lower chest and new consolidative change o bscuring left diaphragm. Visualized cardiac contours are grossly unchanged. CONCLUSION: Slight worsening in aeration Anam Rojas MD on December 18, 2017 at 5:31 Board Certified Radiologist. This report was verified electronically.
[2017-12-18] MEDS: SODIUM CHLORIDE FLUSH BID IV FLUSH SCH ×2 (09:00→19:58)
--- NOTE | 2017-12-18 09:24 | HHI.GIFU ---
Subjective Remarks Pt on sedation and mechanically ventilated via trach TF running- Jevity 1.5 currently at 10 mL/hr PEG site with no active bleeding or drainage, covered with clean and dry gauze (Melany Diaz) Objective Vitals I&O Vital Signs Date Time Temp Pulse Resp B/P (MAP) Pulse Ox O2 Delivery O2 Flow Rate FiO2 12/18/17 08:20 100 35 12/18/17 06:00 59 12/18/17 04:49 100 35 12/18/17 04:00 99.1 56 16 159/71 (100) 100 12/18/17 04:00 56 12/18/17 04:00 35 12/18/17 02:00 66 12/18/17 01:07 100 35 12/18/17 00:00 99.0 66 16 158/70 (99) 100 12/18/17 00:00 65 12/18/17 00:00 35 12/17/17 22:00 66 12/17/17 21:13 100 35 12/17/17 20:00 98.4 71 17 167/76 (106) 98 12/17/17 20:00 71 12/17/17 20:00 35 12/17/17 18:30 75 12/17/17 18:00 69 12/17/17 16:19 35 12/17/17 16:00 70 19 152/67 (95) 100 12/17/17 16:00 70 12/17/17 15:48 99 35 12/17/17 15:00 69 12/17/17 14:30 69 12/17/17 14:00 64 12/17/17 12:00 100 12/17/17 12:00 71 29 95 12/17/17 12:00 50 12/17/17 11:57 68 16 133/62 (85) 98 12/17/17 11:54 64 16 120/57 (78) 96 12/17/17 11:51 64 16 116/53 (74) 96 12/17/17 11:49 66 16 122/55 (77) 95 12/17/17 11:45 69 43 132/57 (82) 95 12/17/17 11:42 73 39 141/63 (89) 89 12/17/17 11:39 79 36 174/75 (108) 100 12/17/17 11:36 80 38 177/77 (110) 93 12/17/17 11:33 87 19 183/81 (115) 87 12/17/17 11:30 73 24 182/79 (113) 100 12/17/17 11:30 100 100 12/17/17 11:27 65 22 155/68 (97) 100 12/17/17 11:25 66 38 154/69 (97) 100 12/17/17 11:01 72 16 187/79 (115) 97 12/17/17 10:30 63 27 144/67 (92) 95 12/17/17 10:30 63 12/17/17 10:10 95 30 12/17/17 10:00 63 12/17/17 10:00 63 28 138/61 (86) 92 12/17/17 09:30 63 26 148/70 (96) 92 12/17/17 09:30 63 I/O 12/17/17 12/17/17 12/17/17 12/18/17 12/18/17 12/18/17 07:00 15:00 23:00 07:00 15:00 23:00 Intake Total 1328 ml 450 ml 124 ml 1427 ml Output Total 400 ml 550 ml 500 ml Balance 928 ml 450 ml -426 ml 927 ml IV Total 1052 ml 450 ml 100 ml 1100 ml Tube Feeding 156 ml 24 ml 127 ml Other 120 ml 200 ml Output Urine Total 400 ml 550 ml 500 ml # Bowel Movements 1 2 2 Laboratory Laboratory Tests Test 12/17/17 20:45 Activated Partial Thromboplast Time 23.9 Date/Time Source Procedure Growth Status 12/12/17 07:29 Blood Peripheral Aerobic Blood Culture - Final NO GROWTH IN 5 DAYS Complete 12/12/17 07:29 Blood Peripheral Anaerobic Blood Culture - Final NO GROWTH IN 5 DAYS Complete 12/04/17 14:50 Cerebral Spinal Fluid Lumbar Puncture Fungal Smear - Final NO FUNGAL ELEMENTS SEEN. Resulted 12/04/17 14:50 Cerebral Spinal Fluid Lumbar Puncture Fungal Culture - Preliminary NO GROWTH IN 1 WEEK Resulted 12/12/17 12:00 Sputum Endotracheal Gram Stain - Final Complete 12/12/17 12:00 Sputum Endotracheal Sputum Culture - Final MODERATE GROWTH NORMAL RESPIRATORY GURMEET Complete 12/12/17 17:30 Urine Clean Catch Urine Culture - Final NO GROWTH IN 48 HOURS. Complete Imaging Last Impressions Chest X-Ray 12/18/17 0600 Signed Impressions: Service Date/Time: Monday, December 18, 2017 04:10 - CONCLUSION: Slight worsening in aeration Anam Rojas MD Liver Ultrasound 12/11/17 0000 Signed Impressions: Service Date/Time: Monday, December 11, 2017 13:59 - CONCLUSION: 1. Liver is prominent with no focal mass lesions or fatty infiltration. 2. Trace fluid about the liver. 3. Bilateral pleural effusions. Mahendra Poe MD Chest CT 12/04/17 1154 Signed Impressions: Service Date/Time: Monday, December 04, 2017 12:43 - CONCLUSION: Probable mild congestive failure with trace pleural effusions. No evidence for mass. Jean-Paul Hoffmann MD FACR Head CT 12/04/17 1126 Signed Impressions: Service Date/Time: Monday, December 04, 2017 12:37 - CONCLUSION: Stable brain appearance. No acute intracranial findings Anam Rojas MD Neck Magnetic Resonance Angiography 12/04/17 0000 Signed Impressions: Service Date/Time: Monday, December 04, 2017 20:36 - CONCLUSION: 1. Mild plaque at the right carotid bulb/proximal internal carotid artery without significant stenosis. 2. Significant opacification of the aortic arch and origins of the great vessels is not present. These areas cannot be evaluated. Anam Donis MD Head Magnetic Resonance Angiography 12/04/17 0000 Signed Impressions: Service Date/Time: Monday, December 04, 2017 20:36 - CONCLUSION: No acute disease. Anam Donis MD Brain MRI 12/04/17 0000 Signed Impressions: Service Date/Time: Monday, December 04, 2017 20:36 - CONCLUSION: 1. Small punctate areas of signal abnormality in the posterior left temporal lobe which may represent small focal areas of acute infarction. 2. Several areas of signal abnormality in the basal ganglia and left posterior temporal lobes likely from prior hemorrhage. 3. Demyelination within the cerebral and pontine white matter likely from small vessel ischemic change. Anam Donis MD Physical Exam HEENT: Normocephalic; atraumatic CHEST: Respirations synchronized with vent via trach CARDIAC: RRR ABDOMEN: Soft, nondistended, bowel sounds active. 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 Stomach mild to moderate gastritis. PEG was placed without any immediate complications. Duodenum normal. Biopsy taken from stomach. Ancef used for antibiotic prophylaxis Nutrition recommendations: Jevity 1.5 with goal rate of 50 mL/hr- currently running at 10 mL/hr Plan: TF per nutrition- Jevity 1.5 with goal rate 50 mL/hr EGD biopsy pending [facility] GI will sign off, please reconsult as needed Pt has been seen and examined by myself and Dr. Ellsworth and this note is written on his behalf (Melany Diaz) Plan Patient was seen and examined, agree with above, tolerating more NG tube, we will sign off at this time (Rola Ellsworth MD) Melany Diaz December 18, 2017 09:24 Rola Ellsworth MD December 18, 2017 22:47
[2017-12-18] MEDS: CHLORHEXIDINE 0.12% (ORAL KIT) 15 ML CUP MT SCH ×2 (09:26→19:58)
[2017-12-18] MEDS: AMIODARONE 200 MG TAB PO SCH ×2 (09:26→19:57)
[2017-12-18] MEDS: FAMOTIDINE 20 MG TAB PO SCH (09:26)
[2017-12-18] MEDS: ASPIRIN 81 MG CHEW TAB NG SCH (09:26)
[2017-12-18] MEDS: DOCUSATE SODIUM 50 MG/SENNA 8.6 MG TAB PO SCH ×2 (09:27→19:57)
[2017-12-18 10:38] LABS: BICARBONATE 27.9 MEQ/L (21.0-32.0); CALCIUM 8.6 MG/DL (8.5-10.1); CREATININE 1.3 MG/DL (0.50-1.00)
--- NOTE | 2017-12-18 10:52 | HHI.CCPN ---
Subjective Remarks/Hospital Course 77-year-old female who is apparently very active at baseline, with past medical history significant for hypertension and previous TIA, tobacco abuse. She was seen last normal yesterday night at 7 PM. Her friends checked on her today morning and was found down, disoriented, staring off to the left, not answering questions. I am not able to get much further history from her. She has a fever of 101 in the ER, initially and then spiked to 103.7. ER workup included a CT scan of head which was negative for acute findings. Lab work showed a white count of 15.9 with left shift, lactic acid was 3.4, troponin was elevated at 8.7. Cardiology Dr. Meza was contacted aspirin was given patient was recommended to be started on IV heparin but was held for LP. Lumbar puncture was unremarkable nevertheless patient was started on meningitic doses of vancomycin and Rocephin. I have added ampicillin 2 g IV every 4 hours, and acyclovir 680 mg IV every 8 hours. I evaluated the patient in the ICU. Patient is severely altered tachypneic in moderate distress. Patient is aphasic with left gaze preference diminished movements of the right upper and lower extremity. A bedside echo shows reduced EF approximately 20-25%, global hypokinesis. Patient has no history of cardiomyopathy to my knowledge. At this time his stroke cannot be ruled out. Stat MRI MRA had been ordered. Due to altered mentation tachypnea and lack of airway protection patient was intubated and placed on mechanical ventilation SUBJECTIVE: 12/05: Remains intubated sedated. MRI brain showing small punctate areas of signal abnormality in the posterior left temporal lobe-possible small focal areas of acute infarction. Also several areas of signal abnormality in the basal ganglia and left posterior temporal lobes likely from prior hemorrhage. Demyelination within the cerebral and pontine white matter likely from small vessel ischemic change. Neurology consult. Stat EEG is pending. Fever is down trending afebrile now, developed atrial fibrillation with RVR started on amiodarone infusion. I have resumed heparin infusion. 12/06: Afebrile. Last evening the patient had decreased mat requiring additional pressor support vasopressin added to medication regimen and diminished urinary output. Patient was noted to have significant elevation in creatinine this a.m. Patient remains on vasopressin and norepinephrine vasopressor support. Patient continues on amiodarone infusion, plan to transition to p.o.. Sedation vacation initiated yesterday for EEG, per report patient following commands. Sedation vacation in progress at this time. Noticed slight elevation in WBC count, repeat urine culture pending. 12/07: Remains intubated sedated. Currently on IV heparin infusion, amiodarone infusion and vasopressin gtt to maintain MAP >65. Had developed acute kidney injury yesterday creatinine had bumped to 2. Urine output 550 mL in the last 24 hours. CMP today is pending. On sedation hold patient opens eyes weakly moves extremities do not follow commands. Remains severely encephalopathy 12/08: No events over the night. Patient remains encephalopathic, opens eyes to voice stimuli, but does not consistently follow commands. She remains on amiodarone and heparin infusions, no pressors. T-max of 99.6. I/O 2250/960, more than 11 L positive since admission if correctly documented. 12/09: Few episodes of A. fib with RVR over the night. T-max of 99.1. Patient remains intubated and sedated. No family present at bedside. 12/10: No events over the night. Patient is more awake this a.m. 30 with propofol. Good response to diuresis, T-max 100.1. In telemetry, patient currently in sinus rhythm and she continues to be on amiodarone infusion. 12/11: No events over the night. T-max of 100.2. On 35 off propofol this morning, arousable, following some commands. Diuresing well with Lasix. She remains in sinus rhythm. 12/12: Patient remains intubated and sedated, on propofol at 35. Yesterday patient tolerated CPAP trials for a little less than 2 hours. Afebrile, with a T-max of 99.8. I/O 2069/2099. Patient is arousable, tracking, following some commands. 12/13: No events over the night. T-max of 99.9. Patient is awake, on some sedation, following some commands. Urine dark with some sediment. 12/14: Patient developed worsening hematuria over the night therefore I stopped heparin drip this morning. Yesterday she tolerated CPAP for approximately 2 hours then she became tachypneic. Sedation was changed to Precedex and propofol was stopped, patient is awake and calm following commands. Still significant amount of sputum secretions. T-max of 99.1. I/O 2485/1125. 12/15: Tmax 100.2. The patient continues on Precedex infusion, with a RASS -1. No active signs of bleeding, no hematuria noted. Subcu heparin DVT prophylaxis instituted. 12/16: T-max 100.3. Patient awake and responsive on Precedex infusion. Discussion with family planned for tracheostomy and PEG placement, due to slow vent weaning. Patient continues on CPAP trials. Creatinine slightly more elevated today IV infusion increased to 100 cc/hr. 12/17: T-max 99.8. Patient tolerated CPAP trials for greater than 10 hours yesterday, on Precedex infusion. During the night the patient was more agitated , propofol infusion initiated, Precedex infusion discontinued. Plans for tracheostomy and PEG placement today. Patient continues on IV fluid 100 cc/ hour BMP pending. 12/18: Afebrile. No acute events overnight patient is postop day 1 status post tracheostomy and PEG placement tube feeds reinitiated no residuals noted will advance to goal rate today. Patient's creatinine has improved IV fluids discontinued at this time. CPAP trials to begin today. Subcu heparin resumed. Objective Vital Signs Date Time Temp Pulse Resp B/P (MAP) Pulse Ox O2 Delivery O2 Flow Rate FiO2 12/18/17 08:20 100 35 12/18/17 06:00 59 12/18/17 04:00 99.1 16 159/71 (100) Intake and Output 12/18/17 12/18/17 12/18/17 07:59 15:59 23:59 Intake Total 1427 ml Output Total 500 ml Balance 927 ml Result Diagram: 12/17/17 0510 12/18/17 0650 Imaging Last Impressions Chest X-Ray 12/17/17 0600 Signed Impressions: Service Date/Time: December 04:04 - CONCLUSION: 1. Persistent right basilar consolidation/effusion with cardiomegaly. 2. Nasogastric tube has been advanced further into the stomach. 3. Cardiomegaly Mahendra Poe MD Liver Ultrasound 12/11/17 0000 Signed Impressions: Service Date/Time: Monday, December 11, 2017 13:59 - CONCLUSION: 1. Liver is prominent with no focal mass lesions or fatty infiltration. 2. Trace fluid about the liver. 3. Bilateral pleural effusions. Mahendra Poe MD Chest CT 12/04/17 1154 Signed Impressions: Service Date/Time: Monday, December 04, 2017 12:43 - CONCLUSION: Probable mild congestive failure with trace pleural effusions. No evidence for mass. Jean-Paul Hoffmann MD FACR Head CT 12/04/17 1126 Signed Impressions: Service Date/Time: Monday, December 04, 2017 12:37 - CONCLUSION: Stable brain appearance. No acute intracranial findings Anam Rojas MD Neck Magnetic Resonance Angiography 12/04/17 0000 Signed Impressions: Service Date/Time: Monday, December 04, 2017 20:36 - CONCLUSION: 1. Mild plaque at the right carotid bulb/proximal internal carotid artery without significant stenosis. 2. Significant opacification of the aortic arch and origins of the great vessels is not present. These areas cannot be evaluated. Anam Donis MD Head Magnetic Resonance Angiography 12/04/17 0000 Signed Impressions: Service Date/Time: Monday, December 04, 2017 20:36 - CONCLUSION: No acute disease. Anam Donis MD Brain MRI 12/04/17 0000 Signed Impressions: Service Date/Time: Monday, December 04, 2017 20:36 - CONCLUSION: 1. Small punctate areas of signal abnormality in the posterior left temporal lobe which may represent small focal areas of acute infarction. 2. Several areas of signal abnormality in the basal ganglia and left posterior temporal lobes likely from prior hemorrhage. 3. Demyelination within the cerebral and pontine white matter likely from small vessel ischemic change. Anam Donis MD Last 24 hours Impressions Chest X-Ray 12/14/17 0600 Signed Impressions: Service Date/Time: Thursday, December 14, 2017 01:38 - CONCLUSION: 1. Improving aeration in the left base with some minimal atelectatic changes. 2. Right basilar consolidation and associated effusion may also be slightly better. 3. Stable cardiomegaly. Stable position of life support tubes Mahendra Poe MD Last 24 hours Impressions Chest X-Ray 12/12/17 0000 Signed Impressions: Service Date/Time: Tuesday, December 12, 2017 06:50 - CONCLUSION: No significant change has occurred. Philippe Peters MD Last 24 hours Impressions Chest X-Ray 12/10/17 0600 Signed Impressions: Service Date/Time: November 03:55 - CONCLUSION: 1. Right basilar density unchanged likely small pleural effusion and associated density. 2. Cardiomegaly. Gideon Lin MD Last 24 hours Impressions Chest X-Ray 12/08/17 0600 Signed Impressions: Service Date/Time: Friday, December 08, 2017 03:05 - CONCLUSION: 1. Endotracheal tube and nasogastric tube in satisfactory position. Mild basilar airspace disease persists. Shay Rausch MD Last Impressions Chest X-Ray 12/05/17 0000 Signed Impressions: Service Date/Time: Tuesday, December 05, 2017 13:23 - CONCLUSION: 1. Interval placement of a right subclavian central venous catheter with the tip projecting over the central venous system. No pneumothorax 2. Lungs remain hyperinflated with probable bibasilar atelectasis. 3. Compensated cardiomegaly. Mahendra Poe MD Chest CT 12/04/17 1154 Signed Impressions: Service Date/Time: Monday, December 04, 2017 12:43 - CONCLUSION: Probable mild congestive failure with trace pleural effusions. No evidence for mass. Jean-Paul Hoffmann MD FACR Head CT 12/04/17 1126 Signed Impressions: Service Date/Time: Monday, December 04, 2017 12:37 - CONCLUSION: Stable brain appearance. No acute intracranial findings Anam Rojas MD Neck Magnetic Resonance Angiography 12/04/17 0000 Signed Impressions: Service Date/Time: Monday, December 04, 2017 20:36 - CONCLUSION: 1. Mild plaque at the right carotid bulb/proximal internal carotid artery without significant stenosis. 2. Significant opacification of the aortic arch and origins of the great vessels is not present. These areas cannot be evaluated. Anam Donis MD Head Magnetic Resonance Angiography 12/04/17 0000 Signed Impressions: Service Date/Time: Monday, December 04, 2017 20:36 - CONCLUSION: No acute disease. Anam Donis MD Brain MRI 12/04/17 0000 Signed Impressions: Service Date/Time: Monday, December 04, 2017 20:36 - CONCLUSION: 1. Small punctate areas of signal abnormality in the posterior left temporal lobe which may represent small focal areas of acute infarction. 2. Several areas of signal abnormality in the basal ganglia and left posterior temporal lobes likely from prior hemorrhage. 3. Demyelination within the cerebral and pontine white matter likely from small vessel ischemic change. Anam Donis MD Procedures 5/3 Pending PEG 5/3 Pending Trach Objective Remarks General -This is a well-developed well-nourished elderly female chronically ill- appearing, weak, responsive HEENT - pupils are equal and reactive, sclerae are anicteric, neck is supple, neck veins are distended, + ETT, + NGT, right subclavian line in place -site remains clean CV - irregular heart sounds, no murmurs, rubs or gallop Chest - still has scattered coarse breath sounds b/l, good air entry, no wheezes Abdomen - soft, non-distended, non-tender, BS present Extremities - 2+ edema over both upper and lower extremities, + peripheral pulses, warm Neuro - RASS -2. intubated, awake, follows some commands, wiggles toes and squeezes fingers bilaterally, right stronger than left A/P Problem List: (1) Acute metabolic encephalopathy ICD Code: G93.41 - Metabolic encephalopathy Status: Acute (2) Paroxysmal atrial fibrillation with rapid ventricular response ICD Code: I48.0 - Paroxysmal atrial fibrillation Status: Acute (3) Lactic acidemia ICD Code: E87.2 - Acidosis Status: Acute (4) Cardiomyopathy ICD Code: I42.9 - Cardiomyopathy, unspecified Status: Chronic (5) Non-ST elevation ME (NSTEMI) ICD Code: I21.4 - Non-ST elevation (NSTEMI) myocardial infarction Status: Acute (6) Severe sepsis ICD Code: A41.9 - Sepsis, unspecified organism; R65.20 - Severe sepsis without septic shock Status: Acute (7) Altered mental status ICD Code: R41.82 - Altered mental status, unspecified Status: Acute (8) Hypertension ICD Code: I10 - Hypertension Status: Chronic (9) LAI (acute kidney injury) ICD Code: N17.9 - Acute kidney failure, unspecified Status: Acute (10) Metabolic acidosis ICD Code: E87.2 - Acidosis Status: Acute Assessment and Plan Assessment Acute encephalopathy -very slowly improving, but she remains weak 2. Ischemic stroke- LMCA 3. Acute respiratory failure from lack of airway protection, on minimal O2 requirement, attempting CPAP trials every day 4. NSTEMI 5. Cardiomyopathy, with reduced EF, possible viral myocarditis 6. Atrial fibrillation with RVR -heart rate better controlled 7. Circulatory shock -patient remains off pressors 8. LAI -creatinine is improving, urine output is appropriate 9. Severe metabolic acidosis - resolved 10. Volume overload -positive more than 11 L since admission, improved with diuresis 11. Elevated liver enzymes -gradually trending down 12. Hematuria-resolved 13 VDRF PLAN 1. Patient switched to CPAP, 15/5 and 30% O2. To use CPAP trials. Tentative plan for tracheostomy 12/17 2. Vent bundle and bronchodilators 3. 12/17 Precedex discontinued, propofol infusion 50 mcgs/kg/hr 4. Heparin infusion discontinued due to hematuria(12/14) 5. Continue metoprolol and amiodarone 6. Lasix is discontinued since patient is developing contraction alkalosis, BUN and creatinine trending up.IV hydration increased 7. Off antibiotics per ID 8. Central line right subclavian (12/05), arterial line was removed 9. GI and DVT prophylaxis addressed 10. 12/18 tube feeds reinitiated advanced 10 cc/hour to goal rate of 50 cc/hour 11. Lactated Ringer's 100 cc an hour discontinued Level 3 follow-up Discussed with PADDER at bedside (Angelika) Problem Qualifiers (1) Altered mental status: (2) Hypertension: Qualified Codes: I10 - Essential (primary) hypertension Evelin De La Vega MD December 18, 2017 10:52
[2017-12-18] MEDS: RESP: ALBUTEROL 2.5 MG/IPRATROPIUM 0.5 MG NEB (SCH) NEB ×2 (11:16→19:40)
[2017-12-18] MEDS: DEXMEDETOMIDINE INJ 1,000 MCG in SODIUM CHLOR 0.9% 250 ML INJ 250 ML IV PRN (11:42)
[2017-12-18] MEDS: THIAMINE INJ 100 MG in SODIUM CHLORIDE 0.9% INJ 100 ML IV SCH (18:07)
[2017-12-18] MEDS: NYSTATIN 100,000 U/GM PWD 15 GM BTL TOPICAL SCH (19:57)
[2017-12-18] MEDS: HEPARIN SODIUM - SQ 10,000 UNITS/ML VIAL SQ SCH (19:58)
[2017-12-19] VITALS (22 sets, daily range): BP systolic 107–145; BP diastolic 56–82; PULSE 51–72; RESP 16–42; TEMP 98.4–98.9; O2SAT 94–100
[2017-12-19] MEDS: METOPROLOL TARTRATE 25 MG TAB PO SCH ×2 (02:00→08:00)
[2017-12-19] MEDS: INSULIN NovoLIN REGULAR SUPPLEMENTAL SCALE SQ SCH ×4 (03:44→21:33)
[2017-12-19] MEDS: CHLORHEXIDINE GLUCONATE 2 % 1 PACK (2 CLOTHS) TOP SCH ×2 (03:45→22:36)
[2017-12-19 05:17] LABS: AUTOMATED NEUTROPHIL # 6.3 TH/MM3 (1.8-7.7); BASOPHIL % 0.4 % (0.0-2.0); EOSINOPHIL # 0.2 TH/MM3 (0-0.4); EOSINOPHIL % 2.2 % (0.0-4.0); HEMATOCRIT 23.8 % (35.0-46.0); HEMOGLOBIN 7.9 GM/DL (11.6-15.3); LYMPH % 10.4 % (9.0-44.0); LYMPHOCYTE # 0.8 TH/MM3 (1.0-4.8); MEAN CELL VOLUME 84.1 FL (80.0-100.0); MEAN CORPUSCULAR HEMOGLOBIN 27.8 PG (27.0-34.0); MEAN CORPUSCULAR HGB CONC 33.1 % (32.0-36.0); MONO % 4.9 % (0.0-8.0); MONOCYTE # 0.4 TH/MM3 (0-0.9); NEUT % 82.1 % (16.0-70.0); PLATELET COUNT 207 TH/MM3 (150-450); RED BLOOD COUNT 2.84 MIL/MM3 (4.00-5.30); RED CELL DISTRIBUTION WIDTH 13.3 % (11.6-17.2); WHITE BLOOD COUNT 7.7 TH/MM3 (4.0-11.0)
[2017-12-19 05:40] LABS: BICARBONATE 26.8 MEQ/L (21.0-32.0); CALCIUM 8.5 MG/DL (8.5-10.1); CREATININE 1.26 MG/DL (0.50-1.00)
[2017-12-19] MEDS: RESP: ALBUTEROL 2.5 MG/IPRATROPIUM 0.5 MG NEB (SCH) NEB ×3 (07:16→19:43)
--- NOTE | 2017-12-19 08:52 | HHI.CCPN ---
Subjective Remarks/Hospital Course 77-year-old female who is apparently very active at baseline, with past medical history significant for hypertension and previous TIA, tobacco abuse. She was seen last normal yesterday night at 7 PM. Her friends checked on her today morning and was found down, disoriented, staring off to the left, not answering questions. I am not able to get much further history from her. She has a fever of 101 in the ER, initially and then spiked to 103.7. ER workup included a CT scan of head which was negative for acute findings. Lab work showed a white count of 15.9 with left shift, lactic acid was 3.4, troponin was elevated at 8.7. Cardiology Dr. Meza was contacted aspirin was given patient was recommended to be started on IV heparin but was held for LP. Lumbar puncture was unremarkable nevertheless patient was started on meningitic doses of vancomycin and Rocephin. I have added ampicillin 2 g IV every 4 hours, and acyclovir 680 mg IV every 8 hours. I evaluated the patient in the ICU. Patient is severely altered tachypneic in moderate distress. Patient is aphasic with left gaze preference diminished movements of the right upper and lower extremity. A bedside echo shows reduced EF approximately 20-25%, global hypokinesis. Patient has no history of cardiomyopathy to my knowledge. At this time his stroke cannot be ruled out. Stat MRI MRA had been ordered. Due to altered mentation tachypnea and lack of airway protection patient was intubated and placed on mechanical ventilation SUBJECTIVE: 12/05: Remains intubated sedated. MRI brain showing small punctate areas of signal abnormality in the posterior left temporal lobe-possible small focal areas of acute infarction. Also several areas of signal abnormality in the basal ganglia and left posterior temporal lobes likely from prior hemorrhage. Demyelination within the cerebral and pontine white matter likely from small vessel ischemic change. Neurology consult. Stat EEG is pending. Fever is down trending afebrile now, developed atrial fibrillation with RVR started on amiodarone infusion. I have resumed heparin infusion. 12/06: Afebrile. Last evening the patient had decreased mat requiring additional pressor support vasopressin added to medication regimen and diminished urinary output. Patient was noted to have significant elevation in creatinine this a.m. Patient remains on vasopressin and norepinephrine vasopressor support. Patient continues on amiodarone infusion, plan to transition to p.o.. Sedation vacation initiated yesterday for EEG, per report patient following commands. Sedation vacation in progress at this time. Noticed slight elevation in WBC count, repeat urine culture pending. 12/07: Remains intubated sedated. Currently on IV heparin infusion, amiodarone infusion and vasopressin gtt to maintain MAP >65. Had developed acute kidney injury yesterday creatinine had bumped to 2. Urine output 550 mL in the last 24 hours. CMP today is pending. On sedation hold patient opens eyes weakly moves extremities do not follow commands. Remains severely encephalopathy 12/08: No events over the night. Patient remains encephalopathic, opens eyes to voice stimuli, but does not consistently follow commands. She remains on amiodarone and heparin infusions, no pressors. T-max of 99.6. I/O 2250/960, more than 11 L positive since admission if correctly documented. 12/09: Few episodes of A. fib with RVR over the night. T-max of 99.1. Patient remains intubated and sedated. No family present at bedside. 12/10: No events over the night. Patient is more awake this a.m. 30 with propofol. Good response to diuresis, T-max 100.1. In telemetry, patient currently in sinus rhythm and she continues to be on amiodarone infusion. 12/11: No events over the night. T-max of 100.2. On 35 off propofol this morning, arousable, following some commands. Diuresing well with Lasix. She remains in sinus rhythm. 12/12: Patient remains intubated and sedated, on propofol at 35. Yesterday patient tolerated CPAP trials for a little less than 2 hours. Afebrile, with a T-max of 99.8. I/O 2069/2099. Patient is arousable, tracking, following some commands. 12/13: No events over the night. T-max of 99.9. Patient is awake, on some sedation, following some commands. Urine dark with some sediment. 12/14: Patient developed worsening hematuria over the night therefore I stopped heparin drip this morning. Yesterday she tolerated CPAP for approximately 2 hours then she became tachypneic. Sedation was changed to Precedex and propofol was stopped, patient is awake and calm following commands. Still significant amount of sputum secretions. T-max of 99.1. I/O 2485/1125. 12/15: Tmax 100.2. The patient continues on Precedex infusion, with a RASS -1. No active signs of bleeding, no hematuria noted. Subcu heparin DVT prophylaxis instituted. 12/16: T-max 100.3. Patient awake and responsive on Precedex infusion. Discussion with family planned for tracheostomy and PEG placement, due to slow vent weaning. Patient continues on CPAP trials. Creatinine slightly more elevated today IV infusion increased to 100 cc/hr. 12/17: T-max 99.8. Patient tolerated CPAP trials for greater than 10 hours yesterday, on Precedex infusion. During the night the patient was more agitated , propofol infusion initiated, Precedex infusion discontinued. Plans for tracheostomy and PEG placement today. Patient continues on IV fluid 100 cc/ hour BMP pending. 12/18: Afebrile. No acute events overnight patient is postop day 1 status post tracheostomy and PEG placement tube feeds reinitiated no residuals noted will advance to goal rate today. Patient's creatinine has improved IV fluids discontinued at this time. CPAP trials to begin today. Subcu heparin resumed. 12/19: Afebrile. Patient currently on Precedex 0.8 mcgs/kg/hr. Patient is awake nodding yes and no to questions slightly anxious. The patient denies any pain. Xanax 1 mg every 6 hours as needed order. Sodium level noted to be trending slightly upward free water flushes 200 cc/8 hours initiated. Objective Vital Signs Date Time Temp Pulse Resp B/P (MAP) Pulse Ox O2 Delivery O2 Flow Rate FiO2 12/19/17 07:16 96 40 12/19/17 06:00 54 12/19/17 04:00 98.9 16 120/58 (78) Intake and Output 12/19/17 12/19/17 12/20/17 08:00 16:00 00:00 Intake Total 659 ml Output Total 375 ml Balance 284 ml Result Diagram: 12/19/17 0343 12/19/17 0343 Imaging Last Impressions Chest X-Ray 12/17/17 0600 Signed Impressions: Service Date/Time: December 04:04 - CONCLUSION: 1. Persistent right basilar consolidation/effusion with cardiomegaly. 2. Nasogastric tube has been advanced further into the stomach. 3. Cardiomegaly Mahendra Poe MD Liver Ultrasound 12/11/17 0000 Signed Impressions: Service Date/Time: Monday, December 11, 2017 13:59 - CONCLUSION: 1. Liver is prominent with no focal mass lesions or fatty infiltration. 2. Trace fluid about the liver. 3. Bilateral pleural effusions. Mahendra Poe MD Chest CT 12/04/17 1154 Signed Impressions: Service Date/Time: Monday, December 04, 2017 12:43 - CONCLUSION: Probable mild congestive failure with trace pleural effusions. No evidence for mass. Jean-Paul Hoffmann MD FACR Head CT 12/04/17 1126 Signed Impressions: Service Date/Time: Monday, December 04, 2017 12:37 - CONCLUSION: Stable brain appearance. No acute intracranial findings Anam Rojas MD Neck Magnetic Resonance Angiography 12/04/17 0000 Signed Impressions: Service Date/Time: Monday, December 04, 2017 20:36 - CONCLUSION: 1. Mild plaque at the right carotid bulb/proximal internal carotid artery without significant stenosis. 2. Significant opacification of the aortic arch and origins of the great vessels is not present. These areas cannot be evaluated. Anam Donis MD Head Magnetic Resonance Angiography 12/04/17 0000 Signed Impressions: Service Date/Time: Monday, December 04, 2017 20:36 - CONCLUSION: No acute disease. Anam Donis MD Brain MRI 12/04/17 0000 Signed Impressions: Service Date/Time: Monday, December 04, 2017 20:36 - CONCLUSION: 1. Small punctate areas of signal abnormality in the posterior left temporal lobe which may represent small focal areas of acute infarction. 2. Several areas of signal abnormality in the basal ganglia and left posterior temporal lobes likely from prior hemorrhage. 3. Demyelination within the cerebral and pontine white matter likely from small vessel ischemic change. Anam Donis MD Last 24 hours Impressions Chest X-Ray 12/14/17 0600 Signed Impressions: Service Date/Time: Thursday, December 14, 2017 01:38 - CONCLUSION: 1. Improving aeration in the left base with some minimal atelectatic changes. 2. Right basilar consolidation and associated effusion may also be slightly better. 3. Stable cardiomegaly. Stable position of life support tubes Mahendra Poe MD Last 24 hours Impressions Chest X-Ray 12/12/17 0000 Signed Impressions: Service Date/Time: Tuesday, December 12, 2017 06:50 - CONCLUSION: No significant change has occurred. Philippe Peters MD Last 24 hours Impressions Chest X-Ray 12/10/17 0600 Signed Impressions: Service Date/Time: November 03:55 - CONCLUSION: 1. Right basilar density unchanged likely small pleural effusion and associated density. 2. Cardiomegaly. Gideon Lin MD Last 24 hours Impressions Chest X-Ray 12/08/17 0600 Signed Impressions: Service Date/Time: Friday, December 08, 2017 03:05 - CONCLUSION: 1. Endotracheal tube and nasogastric tube in satisfactory position. Mild basilar airspace disease persists. Shay Rausch MD Last Impressions Chest X-Ray 12/05/17 0000 Signed Impressions: Service Date/Time: Tuesday, December 05, 2017 13:23 - CONCLUSION: 1. Interval placement of a right subclavian central venous catheter with the tip projecting over the central venous system. No pneumothorax 2. Lungs remain hyperinflated with probable bibasilar atelectasis. 3. Compensated cardiomegaly. Mahendra Poe MD Chest CT 12/04/17 1154 Signed Impressions: Service Date/Time: Monday, December 04, 2017 12:43 - CONCLUSION: Probable mild congestive failure with trace pleural effusions. No evidence for mass. Jean-Paul Hoffmann MD FACR Head CT 12/04/17 1126 Signed Impressions: Service Date/Time: Monday, December 04, 2017 12:37 - CONCLUSION: Stable brain appearance. No acute intracranial findings Anam Rojas MD Neck Magnetic Resonance Angiography 12/04/17 0000 Signed Impressions: Service Date/Time: Monday, December 04, 2017 20:36 - CONCLUSION: 1. Mild plaque at the right carotid bulb/proximal internal carotid artery without significant stenosis. 2. Significant opacification of the aortic arch and origins of the great vessels is not present. These areas cannot be evaluated. Anam Donis MD Head Magnetic Resonance Angiography 12/04/17 0000 Signed Impressions: Service Date/Time: Monday, December 04, 2017 20:36 - CONCLUSION: No acute disease. Anam Donis MD Brain MRI 12/04/17 0000 Signed Impressions: Service Date/Time: Monday, December 04, 2017 20:36 - CONCLUSION: 1. Small punctate areas of signal abnormality in the posterior left temporal lobe which may represent small focal areas of acute infarction. 2. Several areas of signal abnormality in the basal ganglia and left posterior temporal lobes likely from prior hemorrhage. 3. Demyelination within the cerebral and pontine white matter likely from small vessel ischemic change. Anam Donis MD Procedures 5/3 Pending PEG 5/3 Pending Trach Objective Remarks General -This is a well-developed well-nourished elderly female chronically ill- appearing, weak, responsive nodding head to yes and no questions HEENT - pupils are equal and reactive, sclerae are anicteric, neck is supple, neck veins are distended, 8.0 Shiley tracheostomy + NGT, right subclavian line in place -site remains clean CV - irregular heart sounds, no murmurs, rubs or gallop Chest - still has scattered coarse breath sounds b/l, good air entry, no wheezes Abdomen - soft, non-distended, non-tender, BS present Extremities - 2+ edema over both upper and lower extremities, + peripheral pulses, warm Neuro - RASS -2. intubated, awake, follows some commands, wiggles toes and squeezes fingers bilaterally, right stronger than left A/P Problem List: (1) Acute metabolic encephalopathy ICD Code: G93.41 - Metabolic encephalopathy Status: Acute (2) Paroxysmal atrial fibrillation with rapid ventricular response ICD Code: I48.0 - Paroxysmal atrial fibrillation Status: Acute (3) Lactic acidemia ICD Code: E87.2 - Acidosis Status: Acute (4) Cardiomyopathy ICD Code: I42.9 - Cardiomyopathy, unspecified Status: Chronic (5) Non-ST elevation ID (NSTEMI) ICD Code: I21.4 - Non-ST elevation (NSTEMI) myocardial infarction Status: Acute (6) Severe sepsis ICD Code: A41.9 - Sepsis, unspecified organism; R65.20 - Severe sepsis without septic shock Status: Acute (7) Altered mental status ICD Code: R41.82 - Altered mental status, unspecified Status: Acute (8) Hypertension ICD Code: I10 - Hypertension Status: Chronic (9) LAI (acute kidney injury) ICD Code: N17.9 - Acute kidney failure, unspecified Status: Acute (10) Metabolic acidosis ICD Code: E87.2 - Acidosis Status: Acute Assessment and Plan ASSESSMENT Acute encephalopathy -very slowly improving, but she remains weak 2. Ischemic stroke- LMCA 3. Acute respiratory failure from lack of airway protection, on minimal O2 requirement, attempting CPAP trials every day 4. NSTEMI 5. Cardiomyopathy, with reduced EF, possible viral myocarditis 6. Atrial fibrillation with RVR -heart rate better controlled 7. Circulatory shock -patient remains off pressors 8. LAI -creatinine is improving, urine output is appropriate 9. Severe metabolic acidosis - resolved 10. Volume overload -positive more than 11 L since admission, improved with diuresis 11. Elevated liver enzymes -gradually trending down 12. Hematuria-resolved 13. VDRF- S/ P perc trach 12/17/17 14. Anxiety/Agitation PLAN 1. Patient switched to CPAP, 15/5 and 30% O2. To use CPAP trials. Tentative plan for tracheostomy 12/17 2. Vent bundle and bronchodilators 3. 12/17 Precedex discontinued, propofol infusion 50 mcgs/kg/hr 4. Heparin infusion discontinued due to hematuria(12/14) 5. Continue amiodarone. Metoprolol placed on hold heart rate 50's more dynamically stable 6. Lasix is discontinued since patient is developing contraction alkalosis, BUN and creatinine improved. 7. Off antibiotics per ID 8. Central line right subclavian (12/05)- (12/18), arterial line was removed. Peripheral IVs 2 9. GI and DVT prophylaxis addressed 10. 12/18 tube feeds goal rate of 50 cc/hour 11. Lactated Ringer's 100 cc an hour discontinued-12/19 free water flushes 200 cc every 8 hours 12. Xanax 1 mg every 6 hrs PRN Level 3 follow-up Discussed with MONOTYPIST at bedside (Angelika) No family at bedside. I telephoned Isela Lexis on both cell [phone] and home [phone] provided medical status update, patient started the patient does have anxiety and agitation as baseline. Physician Evelin De La Vega Problem Qualifiers (1) Altered mental status: (2) Hypertension: Qualified Codes: I10 - Essential (primary) hypertension Evelin De La Vega MD December 19, 2017 08:52
[2017-12-19] MEDS ORDERED: PANTOPRAZOLE SOD 40 MG DELAYED RELEASE TAB PO SCH (09:00)
[2017-12-19] MEDS: FREE WATER G-TUBE SCH ×3 (09:00→23:51)
[2017-12-19] MEDS: AMIODARONE 200 MG TAB PO SCH ×2 (09:00→19:51)
[2017-12-19] MEDS: DOCUSATE SODIUM 50 MG/SENNA 8.6 MG TAB PO SCH ×2 (09:12→19:51)
[2017-12-19] MEDS: ALPRAZolam 1 MG TAB PO PRN ×3 (09:12→23:50)
[2017-12-19] MEDS: ASPIRIN 81 MG CHEW TAB NG SCH (09:13)
[2017-12-19] MEDS: HEPARIN SODIUM - SQ 10,000 UNITS/ML VIAL SQ SCH ×2 (09:13→19:52)
[2017-12-19] MEDS: FAMOTIDINE 20 MG TAB NG SCH ×2 (09:13→19:51)
[2017-12-19] MEDS ORDERED: PILL SPLITTER OTHER PRN (09:15)
[2017-12-19] MEDS: SODIUM CHLORIDE FLUSH BID IV FLUSH SCH ×2 (09:16→19:52)
[2017-12-19] MEDS: CHLORHEXIDINE 0.12% (ORAL KIT) 15 ML CUP MT SCH ×2 (09:16→19:53)
[2017-12-19] MEDS: DEXMEDETOMIDINE INJ 1,000 MCG in SODIUM CHLOR 0.9% 250 ML INJ 250 ML IV PRN (09:16)
[2017-12-19] MEDS: NYSTATIN 100,000 U/GM PWD 15 GM BTL TOPICAL SCH ×2 (09:17→19:52)
[2017-12-19] MEDS: THIAMINE INJ 100 MG in SODIUM CHLORIDE 0.9% INJ 100 ML IV SCH (16:26)
[2017-12-20] VITALS (18 sets, daily range): BP systolic 120–150; BP diastolic 57–92; PULSE 55–71; RESP 24–32; TEMP 98.3–99.7; O2SAT 93–100
[2017-12-20] MEDS: INSULIN NovoLIN REGULAR SUPPLEMENTAL SCALE SQ SCH ×4 (03:36→21:55)
--- NOTE | 2017-12-20 03:55 | RADRPT ---
EXAM DATE/TIME: 12/20/2017 02:42 [facility] COMPARISON: CHEST SINGLE AP, December 18, 2017, 4:10. INDICATIONS : Shortness of breath, possible pulmonary disease. MEDICAL HISTORY : Hypertension. Stroke. SURGICAL HISTORY : Peg tube ENCOUNTER: Subsequent ACUITY: 2 weeks PAIN SCORE: Non-responsive. LOCATION: Bilateral chest FINDINGS: There has been interval removal of a central line. Tracheostomy is stable in position. Aeration is gr ossly unchanged with hazy bilateral primarily basilar pleural-parenchymal opacities, right worse than left. Cardiac contours are stable. CONCLUSION: Interval removal of central line. Aeration is grossly stable. Anam Rojas MD on December 20, 2017 at 3:51 Board Certified Radiologist. This report was verified electronically.
[2017-12-20] MEDS: DEXMEDETOMIDINE INJ 1,000 MCG in SODIUM CHLOR 0.9% 250 ML INJ 250 ML IV PRN (04:11)
[2017-12-20 06:11] LABS: BASOPHIL % 0.4 % (0.0-2.0); EOSINOPHIL # 0.1 TH/MM3 (0-0.4); EOSINOPHIL % 2.2 % (0.0-4.0); HEMATOCRIT 24.6 % (35.0-46.0); LYMPH % 14.9 % (9.0-44.0); MEAN CORPUSCULAR HGB CONC 32.6 % (32.0-36.0); MEAN PLATELET VOLUME 10.1 FL (7.0-11.0); MONO % 5.1 % (0.0-8.0); MONOCYTE # 0.3 TH/MM3 (0-0.9); NEUT % 77.4 % (16.0-70.0); PLATELET COUNT 222 TH/MM3 (150-450); RED BLOOD COUNT 2.96 MIL/MM3 (4.00-5.30); WHITE BLOOD COUNT 6.5 TH/MM3 (4.0-11.0)
[2017-12-20 06:19] LABS: BICARBONATE 26.2 MEQ/L (21.0-32.0); CALCIUM 8.4 MG/DL (8.5-10.1); CREATININE 1.13 MG/DL (0.50-1.00); MAGNESIUM 2.4 MG/DL (1.5-2.5)
[2017-12-20 06:21] LABS: PHOSPHORUS 3.5 MG/DL (2.5-4.9)
[2017-12-20] MEDS: ALPRAZolam 1 MG TAB PO PRN ×2 (06:57→17:10)
[2017-12-20] MEDS: RESP: ALBUTEROL 2.5 MG/IPRATROPIUM 0.5 MG NEB (SCH) NEB ×3 (07:24→19:28)
[2017-12-20] MEDS: FREE WATER G-TUBE SCH ×2 (09:00→17:00)
[2017-12-20] MEDS: DOCUSATE SODIUM 50 MG/SENNA 8.6 MG TAB PO SCH ×2 (09:24→20:23)
[2017-12-20] MEDS: AMIODARONE 200 MG TAB PO SCH ×2 (09:25→20:22)
[2017-12-20] MEDS: FAMOTIDINE 20 MG TAB NG SCH ×2 (09:25→20:22)
[2017-12-20] MEDS: ASPIRIN 81 MG CHEW TAB NG SCH (09:25)
[2017-12-20] MEDS: SODIUM CHLORIDE FLUSH BID IV FLUSH SCH ×2 (09:25→20:23)
[2017-12-20] MEDS: HEPARIN SODIUM - SQ 10,000 UNITS/ML VIAL SQ SCH (09:26)
[2017-12-20] MEDS: CHLORHEXIDINE 0.12% (ORAL KIT) 15 ML CUP MT SCH ×2 (09:26→20:00)
[2017-12-20] MEDS: NYSTATIN 100,000 U/GM PWD 15 GM BTL TOPICAL SCH ×2 (09:27→20:24)
--- NOTE | 2017-12-20 10:34 | HHI.CCPN ---
Subjective Remarks/Hospital Course 77-year-old female who is apparently very active at baseline, with past medical history significant for hypertension and previous TIA, tobacco abuse. She was seen last normal yesterday night at 7 PM. Her friends checked on her today morning and was found down, disoriented, staring off to the left, not answering questions. I am not able to get much further history from her. She has a fever of 101 in the ER, initially and then spiked to 103.7. ER workup included a CT scan of head which was negative for acute findings. Lab work showed a white count of 15.9 with left shift, lactic acid was 3.4, troponin was elevated at 8.7. Cardiology Dr. Meza was contacted aspirin was given patient was recommended to be started on IV heparin but was held for LP. Lumbar puncture was unremarkable nevertheless patient was started on meningitic doses of vancomycin and Rocephin. I have added ampicillin 2 g IV every 4 hours, and acyclovir 680 mg IV every 8 hours. I evaluated the patient in the ICU. Patient is severely altered tachypneic in moderate distress. Patient is aphasic with left gaze preference diminished movements of the right upper and lower extremity. A bedside echo shows reduced EF approximately 20-25%, global hypokinesis. Patient has no history of cardiomyopathy to my knowledge. At this time his stroke cannot be ruled out. Stat MRI MRA had been ordered. Due to altered mentation tachypnea and lack of airway protection patient was intubated and placed on mechanical ventilation 12/05: Remains intubated sedated. MRI brain showing small punctate areas of signal abnormality in the posterior left temporal lobe-possible small focal areas of acute infarction. Also several areas of signal abnormality in the basal ganglia and left posterior temporal lobes likely from prior hemorrhage. Demyelination within the cerebral and pontine white matter likely from small vessel ischemic change. Neurology consult. Stat EEG is pending. Fever is down trending afebrile now, developed atrial fibrillation with RVR started on amiodarone infusion. I have resumed heparin infusion. 12/06: Afebrile. Last evening the patient had decreased mat requiring additional pressor support vasopressin added to medication regimen and diminished urinary output. Patient was noted to have significant elevation in creatinine this a.m. Patient remains on vasopressin and norepinephrine vasopressor support. Patient continues on amiodarone infusion, plan to transition to p.o.. Sedation vacation initiated yesterday for EEG, per report patient following commands. Sedation vacation in progress at this time. Noticed slight elevation in WBC count, repeat urine culture pending. 12/07: Remains intubated sedated. Currently on IV heparin infusion, amiodarone infusion and vasopressin gtt to maintain MAP >65. Had developed acute kidney injury yesterday creatinine had bumped to 2. Urine output 550 mL in the last 24 hours. CMP today is pending. On sedation hold patient opens eyes weakly moves extremities do not follow commands. Remains severely encephalopathy 12/08: No events over the night. Patient remains encephalopathic, opens eyes to voice stimuli, but does not consistently follow commands. She remains on amiodarone and heparin infusions, no pressors. T-max of 99.6. I/O 2250/960, more than 11 L positive since admission if correctly documented. 12/09: Few episodes of A. fib with RVR over the night. T-max of 99.1. Patient remains intubated and sedated. No family present at bedside. 12/10: No events over the night. Patient is more awake this a.m. 30 with propofol. Good response to diuresis, T-max 100.1. In telemetry, patient currently in sinus rhythm and she continues to be on amiodarone infusion. 12/11: No events over the night. T-max of 100.2. On 35 off propofol this morning, arousable, following some commands. Diuresing well with Lasix. She remains in sinus rhythm. 12/12: Patient remains intubated and sedated, on propofol at 35. Yesterday patient tolerated CPAP trials for a little less than 2 hours. Afebrile, with a T-max of 99.8. I/O 2069/2099. Patient is arousable, tracking, following some commands. 12/13: No events over the night. T-max of 99.9. Patient is awake, on some sedation, following some commands. Urine dark with some sediment. 12/14: Patient developed worsening hematuria over the night therefore I stopped heparin drip this morning. Yesterday she tolerated CPAP for approximately 2 hours then she became tachypneic. Sedation was changed to Precedex and propofol was stopped, patient is awake and calm following commands. Still significant amount of sputum secretions. T-max of 99.1. I/O 2485/1125. 12/15: Tmax 100.2. The patient continues on Precedex infusion, with a RASS -1. No active signs of bleeding, no hematuria noted. Subcu heparin DVT prophylaxis instituted. 12/16: T-max 100.3. Patient awake and responsive on Precedex infusion. Discussion with family planned for tracheostomy and PEG placement, due to slow vent weaning. Patient continues on CPAP trials. Creatinine slightly more elevated today IV infusion increased to 100 cc/hr. 12/17: T-max 99.8. Patient tolerated CPAP trials for greater than 10 hours yesterday, on Precedex infusion. During the night the patient was more agitated , propofol infusion initiated, Precedex infusion discontinued. Plans for tracheostomy and PEG placement today. Patient continues on IV fluid 100 cc/ hour BMP pending. 12/18: Afebrile. No acute events overnight patient is postop day 1 status post tracheostomy and PEG placement tube feeds reinitiated no residuals noted will advance to goal rate today. Patient's creatinine has improved IV fluids discontinued at this time. CPAP trials to begin today. Subcu heparin resumed. 12/19: Afebrile. Patient currently on Precedex 0.8 mcgs/kg/hr. Patient is awake nodding yes and no to questions slightly anxious. The patient denies any pain. Xanax 1 mg every 6 hours as needed order. Sodium level noted to be trending slightly upward free water flushes 200 cc/8 hours initiated. SUBJECTIVE: 12/20: Continues on dexmedetomidine at 1.0 mcg/kg/hr. On CPAP 12 hours yesterday. Tolerated well currently on Zoloft. Tube feeds at goal. Positive BM. Awake and follows commands 4 Objective Vital Signs Date Time Temp Pulse Resp B/P (MAP) Pulse Ox O2 Delivery O2 Flow Rate FiO2 12/20/17 07:25 35 12/20/17 07:25 100 12/20/17 06:00 55 12/20/17 04:00 98.8 29 138/65 (89) Intake and Output 12/20/17 12/20/17 12/21/17 08:00 16:00 00:00 Intake Total 938 ml Output Total 400 ml Balance 538 ml Result Diagram: 12/20/17 0354 12/20/17 0354 Other Results Microbiology Date/Time Source Procedure Growth Status 12/12/17 07:29 Blood Peripheral Aerobic Blood Culture - Final NO GROWTH IN 5 DAYS Complete 12/12/17 07:29 Blood Peripheral Anaerobic Blood Culture - Final NO GROWTH IN 5 DAYS Complete 12/04/17 14:50 Cerebral Spinal Fluid Lumbar Puncture Fungal Smear - Final NO FUNGAL ELEMENTS SEEN. Resulted 12/04/17 14:50 Cerebral Spinal Fluid Lumbar Puncture Fungal Culture - Preliminary NO GROWTH IN 2 WEEKS Resulted 12/12/17 12:00 Sputum Endotracheal Gram Stain - Final Complete 12/12/17 12:00 Sputum Endotracheal Sputum Culture - Final MODERATE GROWTH NORMAL RESPIRATORY GURMEET Complete 12/12/17 17:30 Urine Clean Catch Urine Culture - Final NO GROWTH IN 48 HOURS. Complete Imaging Last Impressions Chest X-Ray 12/20/17 0600 Signed Impressions: Service Date/Time: Wednesday, December 20, 2017 02:42 - CONCLUSION: Interval removal of central line. Aeration is grossly stable. Anam Rojas MD Liver Ultrasound 12/11/17 0000 Signed Impressions: Service Date/Time: Monday, December 11, 2017 13:59 - CONCLUSION: 1. Liver is prominent with no focal mass lesions or fatty infiltration. 2. Trace fluid about the liver. 3. Bilateral pleural effusions. Mahendra Poe MD Chest CT 12/04/17 1154 Signed Impressions: Service Date/Time: Monday, December 04, 2017 12:43 - CONCLUSION: Probable mild congestive failure with trace pleural effusions. No evidence for mass. Jean-Paul Hoffmann MD FACR Head CT 12/04/17 1126 Signed Impressions: Service Date/Time: Monday, December 04, 2017 12:37 - CONCLUSION: Stable brain appearance. No acute intracranial findings Anam Rojas MD Neck Magnetic Resonance Angiography 12/04/17 0000 Signed Impressions: Service Date/Time: Monday, December 04, 2017 20:36 - CONCLUSION: 1. Mild plaque at the right carotid bulb/proximal internal carotid artery without significant stenosis. 2. Significant opacification of the aortic arch and origins of the great vessels is not present. These areas cannot be evaluated. Anam Donis MD Head Magnetic Resonance Angiography 12/04/17 0000 Signed Impressions: Service Date/Time: Monday, December 04, 2017 20:36 - CONCLUSION: No acute disease. Anam Donis MD Brain MRI 12/04/17 0000 Signed Impressions: Service Date/Time: Monday, December 04, 2017 20:36 - CONCLUSION: 1. Small punctate areas of signal abnormality in the posterior left temporal lobe which may represent small focal areas of acute infarction. 2. Several areas of signal abnormality in the basal ganglia and left posterior temporal lobes likely from prior hemorrhage. 3. Demyelination within the cerebral and pontine white matter likely from small vessel ischemic change. Anam Donis MD Procedures 5/3 Pending PEG 5/3 Pending Trach Objective Remarks General -This is a well-developed well-nourished elderly female chronically ill- appearing, weak, responsive nodding head to yes and no questions HEENT - pupils are equal and reactive, sclerae are anicteric, neck is supple, neck veins are distended, 8.0 Shiley tracheostomy + NGT, right subclavian line in place -site remains clean CV - irregular heart sounds, no murmurs, rubs or gallop Chest - still has scattered coarse breath sounds b/l, good air entry, no wheezes Abdomen - soft, non-distended, non-tender, BS present Extremities - 2+ edema over both upper and lower extremities, + peripheral pulses, warm Neuro - RASS -2. 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 daily Currently on dexmedetomidine drip at 1.0 g/kg/h for toleration of CPAP Acetaminophen 650 mg by tube every 6 hours as needed fever On alprazolam 1 mg by tube every 6 hours as needed anxiety EEG 12/05 no epileptic activity We will start low-dose quetiapine 25 twice daily to wean off dexmedetomidine drip CV: A. fib with RVR -currently in sinus bradycardia Nonischemic cardiomyopathy, with reduced EF History of diastolic heart failure 03/30 NSTEMI Moderate MR History of essential hypertension Currently on amiodarone 200 mg p.o. twice daily per Dr. Meza. Signed off. Previously on metoprolol tartrate 25 mg every 6 hours Echocardiogram revealed EF 55%. Bilateral atrial enlargement. Pulmonary arterial pressure 33 mmHg Previous echocardiogram 2013 revealed EF 55-60%. Grade 1 diastolic dysfunction. We will start statin 10 mg at night Resp: Vent dependent respiratory failure -status post tracheostomy 12/[address] Flor Currently in CPAP 15/5 and 35%. Tolerated 12 hours yesterday Albuterol/ipratropium aerosols every 6 hours with albuterol aerosols every 2 hours as needed dyspnea Continue PSV trials continuously GI: Status post PEG tube placement -Dr. Mendes 12/17 Hypoalbuminemia Currently on tube feeds of Jevity 1.5 goal 50 cc an hour per nutrition recommendations Famotidine 10 mg twice daily for GI prophylaxis Docusate sodium/senna 1 tablet twice daily for bowel regimen : History of hematuria Baca catheter has been placed for accurate I's and O's in a critically ill patient Endo: Sliding scale insulin with NovoLog with Accu-Cheks every 6 hours to maintain euglycemia Renal: Creatinine currently within normal limits Monitor urine output Accurate I's and O's Heme: Normocytic anemia We will start on target specific oral anticoagulant with apixaban 5 mg twice daily tonight in light of nonvalvular A. fib with CVA Monitor CBC daily. Follow trends ID: Off all antibiotics. Evaluated by Dr. Amaro. Believe this was aspiration pneumonia. LP/cultures also see no growth. Blood cultures 12/12 revealed staph epi likely contaminant. All remainder microbiology no growth MSK: PT evaluate and treat FEN: Replace electrolytes as clinically indicated Access -Utilize peripheral IV. Central line if indicated right subclavian central (12/05)- (12/18) Prophylaxis -GI -famotidine -DVT -SCD/heparin subcu Level 2 follow-up Discussed with [employer] at bedside Dr. De La Vega telephoned Isela Pires on both cell [phone] and home [phone] provided medical status update, patient started the patient does have anxiety and agitation as baseline. Uli Partida MD December 20, 2017 10:34
[2017-12-20] MEDS: ARTIFICIAL TEARS OPTH SOLN 15 ML BTL EACH EYE SCH ×2 (14:00→20:24)
[2017-12-20] MEDS: APIXABAN 5 MG TABLET PO SCH (20:22)
[2017-12-21] VITALS (20 sets, daily range): BP systolic 120–158; BP diastolic 45–65; PULSE 54–86; RESP 16–36; TEMP 98.1–101.2; O2SAT 96–100
[2017-12-21] MEDS: FREE WATER G-TUBE SCH ×3 (00:16→15:29)
[2017-12-21] MEDS: ALPRAZolam 1 MG TAB PO PRN ×2 (00:27→08:03)
[2017-12-21] MEDS: INSULIN NovoLIN REGULAR SUPPLEMENTAL SCALE SQ SCH ×2 (03:26→09:36)
[2017-12-21] MEDS: CHLORHEXIDINE GLUCONATE 2 % 1 PACK (2 CLOTHS) TOP SCH (03:26)
[2017-12-21] MEDS: ARTIFICIAL TEARS OPTH SOLN 15 ML BTL EACH EYE SCH ×3 (03:41→22:35)
[2017-12-21 04:24] LABS: AUTOMATED NEUTROPHIL # 5.6 TH/MM3 (1.8-7.7); BASOPHIL % 0.6 % (0.0-2.0); EOSINOPHIL # 0.2 TH/MM3 (0-0.4); EOSINOPHIL % 2.2 % (0.0-4.0); HEMATOCRIT 23.4 % (35.0-46.0); HEMOGLOBIN 7.8 GM/DL (11.6-15.3); LYMPH % 14.9 % (9.0-44.0); LYMPHOCYTE # 1.1 TH/MM3 (1.0-4.8); MEAN CELL VOLUME 83.1 FL (80.0-100.0); MEAN CORPUSCULAR HEMOGLOBIN 27.6 PG (27.0-34.0); MEAN CORPUSCULAR HGB CONC 33.3 % (32.0-36.0); MONO % 5.8 % (0.0-8.0); MONOCYTE # 0.4 TH/MM3 (0-0.9); NEUT % 76.5 % (16.0-70.0); PLATELET COUNT 244 TH/MM3 (150-450); RED BLOOD COUNT 2.82 MIL/MM3 (4.00-5.30); RED CELL DISTRIBUTION WIDTH 13.3 % (11.6-17.2); WHITE BLOOD COUNT 7.3 TH/MM3 (4.0-11.0)
[2017-12-21 04:42] LABS: ALBUMIN 2.1 GM/DL (3.4-5.0); AST (GOT) 27 U/L (15-37); BICARBONATE 27.9 MEQ/L (21.0-32.0); BLOOD UREA NITROGEN 44 MG/DL (7-18); CALCIUM 8.5 MG/DL (8.5-10.1); CHLORIDE 109 MEQ/L (98-107); CREATININE 1.17 MG/DL (0.50-1.00); GLOMERULAR FILTRATION RATE 45 ML/MIN (>89); GLUCOSE,RANDOM 106 MG/DL (74-106); MAGNESIUM 2.4 MG/DL (1.5-2.5); SODIUM (NA) 146 MEQ/L (136-145)
[2017-12-21 04:44] LABS: ALT (GPT) 46 U/L (10-53)
[2017-12-21 04:46] LABS: ALKALINE PHOSPHATASE 204 U/L (45-117); PHOSPHORUS 3.8 MG/DL (2.5-4.9); TOTAL BILIRUBIN ADULT 0.3 MG/DL (0.2-1.0); TOTAL PROTEIN 5.7 GM/DL (6.4-8.2)
[2017-12-21] MEDS: RESP: ALBUTEROL 2.5 MG/IPRATROPIUM 0.5 MG NEB (SCH) NEB ×3 (07:28→20:51)
[2017-12-21] MEDS: CHLORHEXIDINE 0.12% (ORAL KIT) 15 ML CUP MT SCH ×2 (08:02→20:00)
[2017-12-21] MEDS: FAMOTIDINE 20 MG TAB NG SCH ×2 (08:03→21:00)
[2017-12-21] MEDS: DOCUSATE SODIUM 50 MG/SENNA 8.6 MG TAB PO SCH ×2 (08:03→21:00)
[2017-12-21] MEDS: SODIUM CHLORIDE FLUSH BID IV FLUSH SCH ×2 (08:03→21:00)
[2017-12-21] MEDS: ASPIRIN 81 MG CHEW TAB NG SCH (08:03)
[2017-12-21] MEDS: AMIODARONE 200 MG TAB PO SCH ×2 (08:03→21:00)
[2017-12-21] MEDS: APIXABAN 5 MG TABLET PO SCH ×2 (08:03→21:00)
[2017-12-21] MEDS: NYSTATIN 100,000 U/GM PWD 15 GM BTL TOPICAL SCH ×2 (08:04→21:00)
[2017-12-21] MEDS: DEXMEDETOMIDINE INJ 1,000 MCG in SODIUM CHLOR 0.9% 250 ML INJ 250 ML IV PRN ×2 (08:07→11:42)
--- NOTE | 2017-12-21 09:35 | HHI.CCPN ---
Subjective Remarks/Hospital Course 77-year-old female who is apparently very active at baseline, with past medical history significant for hypertension and previous TIA, tobacco abuse. She was seen last normal yesterday night at 7 PM. Her friends checked on her today morning and was found down, disoriented, staring off to the left, not answering questions. I am not able to get much further history from her. She has a fever of 101 in the ER, initially and then spiked to 103.7. ER workup included a CT scan of head which was negative for acute findings. Lab work showed a white count of 15.9 with left shift, lactic acid was 3.4, troponin was elevated at 8.7. Cardiology Dr. Meza was contacted aspirin was given patient was recommended to be started on IV heparin but was held for LP. Lumbar puncture was unremarkable nevertheless patient was started on meningitic doses of vancomycin and Rocephin. I have added ampicillin 2 g IV every 4 hours, and acyclovir 680 mg IV every 8 hours. I evaluated the patient in the ICU. Patient is severely altered tachypneic in moderate distress. Patient is aphasic with left gaze preference diminished movements of the right upper and lower extremity. A bedside echo shows reduced EF approximately 20-25%, global hypokinesis. Patient has no history of cardiomyopathy to my knowledge. At this time his stroke cannot be ruled out. Stat MRI MRA had been ordered. Due to altered mentation tachypnea and lack of airway protection patient was intubated and placed on mechanical ventilation 12/05: Remains intubated sedated. MRI brain showing small punctate areas of signal abnormality in the posterior left temporal lobe-possible small focal areas of acute infarction. Also several areas of signal abnormality in the basal ganglia and left posterior temporal lobes likely from prior hemorrhage. Demyelination within the cerebral and pontine white matter likely from small vessel ischemic change. Neurology consult. Stat EEG is pending. Fever is down trending afebrile now, developed atrial fibrillation with RVR started on amiodarone infusion. I have resumed heparin infusion. 12/06: Afebrile. Last evening the patient had decreased mat requiring additional pressor support vasopressin added to medication regimen and diminished urinary output. Patient was noted to have significant elevation in creatinine this a.m. Patient remains on vasopressin and norepinephrine vasopressor support. Patient continues on amiodarone infusion, plan to transition to p.o.. Sedation vacation initiated yesterday for EEG, per report patient following commands. Sedation vacation in progress at this time. Noticed slight elevation in WBC count, repeat urine culture pending. 12/07: Remains intubated sedated. Currently on IV heparin infusion, amiodarone infusion and vasopressin gtt to maintain MAP >65. Had developed acute kidney injury yesterday creatinine had bumped to 2. Urine output 550 mL in the last 24 hours. CMP today is pending. On sedation hold patient opens eyes weakly moves extremities do not follow commands. Remains severely encephalopathy 12/08: No events over the night. Patient remains encephalopathic, opens eyes to voice stimuli, but does not consistently follow commands. She remains on amiodarone and heparin infusions, no pressors. T-max of 99.6. I/O 2250/960, more than 11 L positive since admission if correctly documented. 12/09: Few episodes of A. fib with RVR over the night. T-max of 99.1. Patient remains intubated and sedated. No family present at bedside. 12/10: No events over the night. Patient is more awake this a.m. 30 with propofol. Good response to diuresis, T-max 100.1. In telemetry, patient currently in sinus rhythm and she continues to be on amiodarone infusion. 12/11: No events over the night. T-max of 100.2. On 35 off propofol this morning, arousable, following some commands. Diuresing well with Lasix. She remains in sinus rhythm. 12/12: Patient remains intubated and sedated, on propofol at 35. Yesterday patient tolerated CPAP trials for a little less than 2 hours. Afebrile, with a T-max of 99.8. I/O 2069/2099. Patient is arousable, tracking, following some commands. 12/13: No events over the night. T-max of 99.9. Patient is awake, on some sedation, following some commands. Urine dark with some sediment. 12/14: Patient developed worsening hematuria over the night therefore I stopped heparin drip this morning. Yesterday she tolerated CPAP for approximately 2 hours then she became tachypneic. Sedation was changed to Precedex and propofol was stopped, patient is awake and calm following commands. Still significant amount of sputum secretions. T-max of 99.1. I/O 2485/1125. 12/15: Tmax 100.2. The patient continues on Precedex infusion, with a RASS -1. No active signs of bleeding, no hematuria noted. Subcu heparin DVT prophylaxis instituted. 12/16: T-max 100.3. Patient awake and responsive on Precedex infusion. Discussion with family planned for tracheostomy and PEG placement, due to slow vent weaning. Patient continues on CPAP trials. Creatinine slightly more elevated today IV infusion increased to 100 cc/hr. 12/17: T-max 99.8. Patient tolerated CPAP trials for greater than 10 hours yesterday, on Precedex infusion. During the night the patient was more agitated , propofol infusion initiated, Precedex infusion discontinued. Plans for tracheostomy and PEG placement today. Patient continues on IV fluid 100 cc/ hour BMP pending. 12/18: Afebrile. No acute events overnight patient is postop day 1 status post tracheostomy and PEG placement tube feeds reinitiated no residuals noted will advance to goal rate today. Patient's creatinine has improved IV fluids discontinued at this time. CPAP trials to begin today. Subcu heparin resumed. 12/19: Afebrile. Patient currently on Precedex 0.8 mcgs/kg/hr. Patient is awake nodding yes and no to questions slightly anxious. The patient denies any pain. Xanax 1 mg every 6 hours as needed order. Sodium level noted to be trending slightly upward free water flushes 200 cc/8 hours initiated. 12/20: Continues on dexmedetomidine at 1.0 mcg/kg/hr. On CPAP 12 hours yesterday. Tolerated well currently on Zoloft. Tube feeds at goal. Positive BM. Awake and follows commands 4 SUBJECTIVE: 12/21: Continues on dexmedetomidine drip. Remains on CPAP. Will attempt to start quetiapine today 25 mg daily and schedule oxycodone 5 mg every 6 hours and attempt to wean off dexmedetomidine drip. Tolerating tube feeds at goal. Awake and follows commands. Objective Vital Signs Date Time Temp Pulse Resp B/P (MAP) Pulse Ox O2 Delivery O2 Flow Rate FiO2 12/21/17 07:28 35 12/21/17 07:28 100 12/21/17 06:00 56 12/21/17 04:00 98.8 17 123/59 (80) Intake and Output 12/21/17 12/21/17 12/21/17 07:59 15:59 23:59 Intake Total 954 ml 40 ml Output Total 275 ml Balance 679 ml 40 ml Result Diagram: 12/21/17 0316 12/21/17 0316 Other Results Microbiology Date/Time Source Procedure Growth Status 12/12/17 07:29 Blood Peripheral Aerobic Blood Culture - Final NO GROWTH IN 5 DAYS Complete 12/12/17 07:29 Blood Peripheral Anaerobic Blood Culture - Final NO GROWTH IN 5 DAYS Complete 12/04/17 14:50 Cerebral Spinal Fluid Lumbar Puncture Fungal Smear - Final NO FUNGAL ELEMENTS SEEN. Resulted 12/04/17 14:50 Cerebral Spinal Fluid Lumbar Puncture Fungal Culture - Preliminary NO GROWTH IN 2 WEEKS Resulted 12/12/17 12:00 Sputum Endotracheal Gram Stain - Final Complete 12/12/17 12:00 Sputum Endotracheal Sputum Culture - Final MODERATE GROWTH NORMAL RESPIRATORY GURMEET Complete 12/12/17 17:30 Urine Clean Catch Urine Culture - Final NO GROWTH IN 48 HOURS. Complete Imaging Last Impressions Chest X-Ray 12/20/17 0600 Signed Impressions: Service Date/Time: Wednesday, December 20, 2017 02:42 - CONCLUSION: Interval removal of central line. Aeration is grossly stable. Anam Rojas MD Liver Ultrasound 12/11/17 0000 Signed Impressions: Service Date/Time: Monday, December 11, 2017 13:59 - CONCLUSION: 1. Liver is prominent with no focal mass lesions or fatty infiltration. 2. Trace fluid about the liver. 3. Bilateral pleural effusions. Mahendra Poe MD Chest CT 12/04/17 1154 Signed Impressions: Service Date/Time: Monday, December 04, 2017 12:43 - CONCLUSION: Probable mild congestive failure with trace pleural effusions. No evidence for mass. Jean-Paul Hoffmann MD FACR Head CT 12/04/17 1126 Signed Impressions: Service Date/Time: Monday, December 04, 2017 12:37 - CONCLUSION: Stable brain appearance. No acute intracranial findings Anam Rojas MD Neck Magnetic Resonance Angiography 12/04/17 0000 Signed Impressions: Service Date/Time: Monday, December 04, 2017 20:36 - CONCLUSION: 1. Mild plaque at the right carotid bulb/proximal internal carotid artery without significant stenosis. 2. Significant opacification of the aortic arch and origins of the great vessels is not present. These areas cannot be evaluated. Anam Donis MD Head Magnetic Resonance Angiography 12/04/17 0000 Signed Impressions: Service Date/Time: Monday, December 04, 2017 20:36 - CONCLUSION: No acute disease. Anam Donis MD Brain MRI 12/04/17 0000 Signed Impressions: Service Date/Time: Monday, December 04, 2017 20:36 - CONCLUSION: 1. Small punctate areas of signal abnormality in the posterior left temporal lobe which may represent small focal areas of acute infarction. 2. Several areas of signal abnormality in the basal ganglia and left posterior temporal lobes likely from prior hemorrhage. 3. Demyelination within the cerebral and pontine white matter likely from small vessel ischemic change. Anam Donis MD Procedures 5/3 Pending PEG 5/3 Pending Trach Objective Remarks General -This is a well-developed well-nourished elderly female chronically ill- appearing, weak, responsive nodding head to yes and no questions HEENT - pupils are equal and reactive, sclerae are anicteric, neck is supple, neck veins are distended, 8.0 Shiley tracheostomy + NGT, right subclavian line in place -site remains clean CV - irregular heart sounds, no murmurs, rubs or gallop Chest - still has scattered coarse breath sounds b/l, good air entry, no wheezes Abdomen - soft, non-distended, non-tender, BS present Extremities - 2+ edema over both upper and lower extremities, + peripheral pulses, warm Neuro - RASS -2. 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 daily Currently on dexmedetomidine drip at 1.0 g/kg/h for toleration of CPAP Acetaminophen 650 mg by tube every 6 hours as needed fever On alprazolam 1 mg by tube every 6 hours as needed anxiety EEG 12/05 no epileptic activity We will start low-dose quetiapine 25 twice daily and oxycodone 5 mg every 6 hours to wean off dexmedetomidine drip CV: A. fib with RVR -currently in sinus bradycardia Nonischemic cardiomyopathy, with reduced EF History of diastolic heart failure 03/30 NSTEMI Moderate MR History of essential hypertension Currently on amiodarone 200 mg p.o. twice daily per Dr. Meza. Signed off. Previously on metoprolol tartrate 25 mg every 6 hours Echocardiogram revealed EF 55%. Bilateral atrial enlargement. Pulmonary arterial pressure 33 mmHg Previous echocardiogram 2013 revealed EF 55-60%. Grade 1 diastolic dysfunction. We will start atorvastatin 10 mg at night Resp: Vent dependent respiratory failure -status post tracheostomy 12/[address] Flor Currently in CPAP 15/5 and 35%. Tolerated 12 hours yesterday Albuterol/ipratropium aerosols every 6 hours with albuterol aerosols every 2 hours as needed dyspnea Continue PSV trials continuously GI: Status post PEG tube placement -Dr. Mendes 12/17 Hypoalbuminemia Currently on tube feeds of Jevity 1.5 goal 50 cc an hour per nutrition recommendations Famotidine 10 mg twice daily for GI prophylaxis Docusate sodium/senna 1 tablet twice daily for bowel regimen : History of hematuria Baca catheter has been placed for accurate I's and O's in a critically ill patient Endo: Sliding scale insulin with NovoLog with Accu-Cheks every 6 hours to maintain euglycemia can be discontinued today. No sliding scale 12/08 Renal: Creatinine currently within normal limits Monitor urine output Accurate I's and O's Heme: Normocytic anemia We will start on target specific oral anticoagulant with apixaban 5 mg twice daily tonight in light of nonvalvular A. fib with CVA Monitor CBC daily. Follow trends ID: Off all antibiotics. Evaluated by Dr. Amaro. Believe this was aspiration pneumonia. LP/cultures also see no growth. Blood cultures 12/12 revealed staph epi likely contaminant. All remainder microbiology no growth MSK: PT evaluate and treat FEN: Replace electrolytes as clinically indicated Access -Utilize peripheral IV. Central line if indicated right subclavian central (12/05)- (12/18) Prophylaxis -GI -famotidine -DVT -SCD/heparin subcu Level 2 follow-up Discussed with [employer] at bedside Dr. De La Vega telephoned Isela Pires on both cell [phone] and home provided medical status update, patient started the patient does have anxiety and agitation as baseline. Uli Partida MD December 21, 2017 09:35
[2017-12-21] MEDS: oxyCODONE HCL ORAL CONC 5 MG/0.25 ML SYRINGE PO SCH ×3 (11:00→22:40)
[2017-12-21] MEDS: QUEtiapine FUMARATE 25 MG TAB PO SCH (21:00)
[2017-12-22] VITALS (28 sets, daily range): BP systolic 115–166; BP diastolic 52–82; PULSE 70–98; RESP 14–37; TEMP 98.3–99.5; O2SAT 96–100
[2017-12-22] MEDS: FREE WATER G-TUBE SCH ×3 (00:05→16:25)
[2017-12-22] MEDS: CHLORHEXIDINE GLUCONATE 2 % 1 PACK (2 CLOTHS) TOP SCH (04:00)
[2017-12-22 04:22] LABS: HEMATOCRIT 22.5 % (35.0-46.0); HEMOGLOBIN 7.5 GM/DL (11.6-15.3); MEAN CELL VOLUME 83.3 FL (80.0-100.0); MEAN CORPUSCULAR HEMOGLOBIN 27.8 PG (27.0-34.0); MEAN CORPUSCULAR HGB CONC 33.3 % (32.0-36.0); MEAN PLATELET VOLUME 9.6 FL (7.0-11.0); PLATELET COUNT 249 TH/MM3 (150-450); RED CELL DISTRIBUTION WIDTH 13.2 % (11.6-17.2); WHITE BLOOD COUNT 6.5 TH/MM3 (4.0-11.0)
[2017-12-22 04:40] LABS: BICARBONATE 30.3 MEQ/L (21.0-32.0); CALCIUM 8.3 MG/DL (8.5-10.1); CREATININE 1.12 MG/DL (0.50-1.00)
[2017-12-22] MEDS: ARTIFICIAL TEARS OPTH SOLN 15 ML BTL EACH EYE SCH ×3 (05:09→20:59)
[2017-12-22] MEDS: oxyCODONE HCL ORAL CONC 5 MG/0.25 ML SYRINGE PO SCH ×4 (05:09→21:35)
--- NOTE | 2017-12-22 05:37 | RADRPT ---
EXAM DATE/TIME: 12/22/2017 03:35 [facility] COMPARISON: No previous studies available for comparison. INDICATIONS : Short of breath. MEDICAL HISTORY : Hypertension. Stroke. SURGICAL HISTORY : Peg tube. ENCOUNTER: Subsequent ACUITY: 1 week PAIN SCORE: 0/10 LOCATION: Bilateral chest FINDINGS: A single view of the chest demonstrates bibasilar infiltrates with moderate-sized pleural effusion on the right. Tracheostomy tube in good position. IM nail within the right humerus. The cardiomediasti nal contours are unremarkable. Osseous structures are intact. CONCLUSION: Bilateral low lobe infiltrates and pleural effusions are unchanged. Cardiac silhouette is widened Edgard Jessica MD on December 22, 2017 at 5:35 Board Certified Radiologist. This report was verified electronically.
[2017-12-22] MEDS: RESP: ALBUTEROL 2.5 MG/IPRATROPIUM 0.5 MG NEB (SCH) NEB ×3 (07:42→19:41)
--- NOTE | 2017-12-22 08:09 | HHI.CCPN ---
Subjective Remarks/Hospital Course 77-year-old female who is apparently very active at baseline, with past medical history significant for hypertension and previous TIA, tobacco abuse. She was seen last normal yesterday night at 7 PM. Her friends checked on her today morning and was found down, disoriented, staring off to the left, not answering questions. I am not able to get much further history from her. She has a fever of 101 in the ER, initially and then spiked to 103.7. ER workup included a CT scan of head which was negative for acute findings. Lab work showed a white count of 15.9 with left shift, lactic acid was 3.4, troponin was elevated at 8.7. Cardiology Dr. Meza was contacted aspirin was given patient was recommended to be started on IV heparin but was held for LP. Lumbar puncture was unremarkable nevertheless patient was started on meningitic doses of vancomycin and Rocephin. I have added ampicillin 2 g IV every 4 hours, and acyclovir 680 mg IV every 8 hours. I evaluated the patient in the ICU. Patient is severely altered tachypneic in moderate distress. Patient is aphasic with left gaze preference diminished movements of the right upper and lower extremity. A bedside echo shows reduced EF approximately 20-25%, global hypokinesis. Patient has no history of cardiomyopathy to my knowledge. At this time his stroke cannot be ruled out. Stat MRI MRA had been ordered. Due to altered mentation tachypnea and lack of airway protection patient was intubated and placed on mechanical ventilation 12/05: Remains intubated sedated. MRI brain showing small punctate areas of signal abnormality in the posterior left temporal lobe-possible small focal areas of acute infarction. Also several areas of signal abnormality in the basal ganglia and left posterior temporal lobes likely from prior hemorrhage. Demyelination within the cerebral and pontine white matter likely from small vessel ischemic change. Neurology consult. Stat EEG is pending. Fever is down trending afebrile now, developed atrial fibrillation with RVR started on amiodarone infusion. I have resumed heparin infusion. 12/06: Afebrile. Last evening the patient had decreased mat requiring additional pressor support vasopressin added to medication regimen and diminished urinary output. Patient was noted to have significant elevation in creatinine this a.m. Patient remains on vasopressin and norepinephrine vasopressor support. Patient continues on amiodarone infusion, plan to transition to p.o.. Sedation vacation initiated yesterday for EEG, per report patient following commands. Sedation vacation in progress at this time. Noticed slight elevation in WBC count, repeat urine culture pending. 12/07: Remains intubated sedated. Currently on IV heparin infusion, amiodarone infusion and vasopressin gtt to maintain MAP >65. Had developed acute kidney injury yesterday creatinine had bumped to 2. Urine output 550 mL in the last 24 hours. CMP today is pending. On sedation hold patient opens eyes weakly moves extremities do not follow commands. Remains severely encephalopathy 12/08: No events over the night. Patient remains encephalopathic, opens eyes to voice stimuli, but does not consistently follow commands. She remains on amiodarone and heparin infusions, no pressors. T-max of 99.6. I/O 2250/960, more than 11 L positive since admission if correctly documented. 12/09: Few episodes of A. fib with RVR over the night. T-max of 99.1. Patient remains intubated and sedated. No family present at bedside. 12/10: No events over the night. Patient is more awake this a.m. 30 with propofol. Good response to diuresis, T-max 100.1. In telemetry, patient currently in sinus rhythm and she continues to be on amiodarone infusion. 12/11: No events over the night. T-max of 100.2. On 35 off propofol this morning, arousable, following some commands. Diuresing well with Lasix. She remains in sinus rhythm. 12/12: Patient remains intubated and sedated, on propofol at 35. Yesterday patient tolerated CPAP trials for a little less than 2 hours. Afebrile, with a T-max of 99.8. I/O 2069/2099. Patient is arousable, tracking, following some commands. 12/13: No events over the night. T-max of 99.9. Patient is awake, on some sedation, following some commands. Urine dark with some sediment. 12/14: Patient developed worsening hematuria over the night therefore I stopped heparin drip this morning. Yesterday she tolerated CPAP for approximately 2 hours then she became tachypneic. Sedation was changed to Precedex and propofol was stopped, patient is awake and calm following commands. Still significant amount of sputum secretions. T-max of 99.1. I/O 2485/1125. 12/15: Tmax 100.2. The patient continues on Precedex infusion, with a RASS -1. No active signs of bleeding, no hematuria noted. Subcu heparin DVT prophylaxis instituted. 12/16: T-max 100.3. Patient awake and responsive on Precedex infusion. Discussion with family planned for tracheostomy and PEG placement, due to slow vent weaning. Patient continues on CPAP trials. Creatinine slightly more elevated today IV infusion increased to 100 cc/hr. 12/17: T-max 99.8. Patient tolerated CPAP trials for greater than 10 hours yesterday, on Precedex infusion. During the night the patient was more agitated , propofol infusion initiated, Precedex infusion discontinued. Plans for tracheostomy and PEG placement today. Patient continues on IV fluid 100 cc/ hour BMP pending. 12/18: Afebrile. No acute events overnight patient is postop day 1 status post tracheostomy and PEG placement tube feeds reinitiated no residuals noted will advance to goal rate today. Patient's creatinine has improved IV fluids discontinued at this time. CPAP trials to begin today. Subcu heparin resumed. 12/19: Afebrile. Patient currently on Precedex 0.8 mcgs/kg/hr. Patient is awake nodding yes and no to questions slightly anxious. The patient denies any pain. Xanax 1 mg every 6 hours as needed order. Sodium level noted to be trending slightly upward free water flushes 200 cc/8 hours initiated. 12/20: Continues on dexmedetomidine at 1.0 mcg/kg/hr. On CPAP 12 hours yesterday. Tolerated well currently on Zoloft. Tube feeds at goal. Positive BM. Awake and follows commands 4 SUBJECTIVE: 12/21: Continues on dexmedetomidine drip. Remains on CPAP. Will attempt to start quetiapine today 25 mg daily and schedule oxycodone 5 mg every 6 hours and attempt to wean off dexmedetomidine drip. Tolerating tube feeds at goal. Awake and follows commands. 12/22: No events over the night. T-max of 99.1. Patient in sinus rhythm. I/O 1764/675. Patient is awake, tolerating higher pressure support CPAP. Objective Vital Signs Date Time Temp Pulse Resp B/P (MAP) Pulse Ox O2 Delivery O2 Flow Rate FiO2 12/22/17 06:09 16 12/22/17 06:00 70 12/22/17 04:28 98 35 12/22/17 04:00 155/68 (97) 12/22/17 00:06 98.7 Intake and Output 12/22/17 12/22/17 12/23/17 08:00 16:00 00:00 Intake Total 800 ml Output Total 325 ml Balance 475 ml Result Diagram: 12/22/17 0324 12/22/17 0324 Imaging Last Impressions Chest X-Ray 12/20/17 0600 Signed Impressions: Service Date/Time: Wednesday, December 20, 2017 02:42 - CONCLUSION: Interval removal of central line. Aeration is grossly stable. Anam Rojas MD Liver Ultrasound 12/11/17 0000 Signed Impressions: Service Date/Time: Monday, December 11, 2017 13:59 - CONCLUSION: 1. Liver is prominent with no focal mass lesions or fatty infiltration. 2. Trace fluid about the liver. 3. Bilateral pleural effusions. Mahendra Poe MD Chest CT 12/04/17 1154 Signed Impressions: Service Date/Time: Monday, December 04, 2017 12:43 - CONCLUSION: Probable mild congestive failure with trace pleural effusions. No evidence for mass. Jean-Paul Hoffmann MD FACR Head CT 12/04/17 1126 Signed Impressions: Service Date/Time: Monday, December 04, 2017 12:37 - CONCLUSION: Stable brain appearance. No acute intracranial findings Anam Rojas MD Neck Magnetic Resonance Angiography 12/04/17 0000 Signed Impressions: Service Date/Time: Monday, December 04, 2017 20:36 - CONCLUSION: 1. Mild plaque at the right carotid bulb/proximal internal carotid artery without significant stenosis. 2. Significant opacification of the aortic arch and origins of the great vessels is not present. These areas cannot be evaluated. Anam Donis MD Head Magnetic Resonance Angiography 12/04/17 0000 Signed Impressions: Service Date/Time: Monday, December 04, 2017 20:36 - CONCLUSION: No acute disease. Anam Donis MD Brain MRI 12/04/17 0000 Signed Impressions: Service Date/Time: Monday, December 04, 2017 20:36 - CONCLUSION: 1. Small punctate areas of signal abnormality in the posterior left temporal lobe which may represent small focal areas of acute infarction. 2. Several areas of signal abnormality in the basal ganglia and left posterior temporal lobes likely from prior hemorrhage. 3. Demyelination within the cerebral and pontine white matter likely from small vessel ischemic change. Anam Donis MD Procedures 5/3 Pending PEG 5/3 Pending Trach Objective Remarks General - elderly lady, trached, awake, ill-appearing HEENT - pupils equal and reactive, sclerae anicteric, neck supple, no JVD, 8.0 Shiley tracheostomy CV - regular heart sounds, no murmurs, rubs or gallop Chest - scattered coarse breath sounds b/l, good air entry, no wheezes Abdomen - soft, non-distended, non-tender, BS present, PEG tube in place Extremities - warm and well-perfused, 2+ edema over both upper and lower extremities, + peripheral pulses Neuro - patient is awake, follows commands, moves all extremities but she remains weak A/P Problem List: (1) Acute metabolic encephalopathy ICD Code: G93.41 - Metabolic encephalopathy Status: Acute (2) Paroxysmal atrial fibrillation with rapid ventricular response ICD Code: I48.0 - Paroxysmal atrial fibrillation Status: Acute (3) Lactic acidemia ICD Code: E87.2 - Acidosis Status: Acute (4) Cardiomyopathy ICD Code: I42.9 - Cardiomyopathy, unspecified Status: Chronic (5) Non-ST elevation CA (NSTEMI) ICD Code: I21.4 - Non-ST elevation (NSTEMI) myocardial infarction Status: Acute (6) Severe sepsis ICD Code: A41.9 - Sepsis, unspecified organism; R65.20 - Severe sepsis without septic shock Status: Acute (7) Altered mental status ICD Code: R41.82 - Altered mental status, unspecified Status: Acute (8) Hypertension ICD Code: I10 - Hypertension Status: Chronic (9) LAI (acute kidney injury) ICD Code: N17.9 - Acute kidney failure, unspecified Status: Acute (10) Metabolic acidosis ICD Code: E87.2 - Acidosis Status: Acute Assessment and Plan Neuro/Psych: Acute encephalopathy - improved 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 daily Acetaminophen 650 mg by tube every 6 hours as needed fever On alprazolam 1 mg by tube every 6 hours as needed anxiety Continue low-dose quetiapine 25 twice daily and oxycodone 5 mg every 6 hours CV: A. fib with RVR -currently in sinus rhythm Nonischemic cardiomyopathy, with reduced EF History of diastolic heart failure 03/30 NSTEMI Moderate MR History of essential hypertension Currently on amiodarone 200 mg p.o. twice daily per Dr. Meza. Signed off. Previously on metoprolol tartrate 25 mg every 6 hours Echocardiogram revealed EF 55%. Bilateral atrial enlargement. Pulmonary arterial pressure 33 mmHg Previous echocardiogram 2013 revealed EF 55-60%. Grade 1 diastolic dysfunction. Continue atorvastatin 10 mg at night Resp: Vent dependent respiratory failure -status post tracheostomy 12/[address] Flor Currently in CPAP 15/5 and 35%. Albuterol/ipratropium aerosols every 6 hours with albuterol aerosols every 2 hours as needed dyspnea If tolerated we will attempt trach collar GI: Status post PEG tube placement -Dr. Mendes 12/17 Hypoalbuminemia Currently on tube feeds of Jevity 1.5 goal 50 cc an hour per nutrition recommendations Famotidine 10 mg twice daily for GI prophylaxis Docusate sodium/senna 1 tablet twice daily for bowel regimen : History of hematuria Baca catheter has been placed for accurate I's and O's in a critically ill patient Endo: Sliding scale insulin with NovoLog with Accu-Cheks every 6 hours to maintain euglycemia can be discontinued today. No sliding scale 12/08 Renal: Creatinine currently within normal limits Monitor urine output Accurate I's and O's Heme: Normocytic anemia We will start on target specific oral anticoagulant with apixaban 5 mg twice daily tonight in light of nonvalvular A. fib with CVA Monitor CBC daily. Follow trends ID: Off all antibiotics. Evaluated by Dr. Amaro. Believe this was aspiration pneumonia. LP/cultures also see no growth. Blood cultures 12/12 revealed staph epi likely contaminant. All remainder microbiology has no growth MSK: PT evaluate and treat FEN: Replace electrolytes as clinically indicated Access -Utilize peripheral IV. Central line if indicated right subclavian central (12/05)- (12/18) Prophylaxis -GI -famotidine -DVT -SCD/heparin subcu Level 2 follow-up Dr. De La Vega telephoned Isela Pires on both cell [phone] and home [phone] provided medical status update, patient started the patient does have anxiety and agitation as baseline. Addendum: Patient developed increased bleeding around the PEG tube. Stat CT abdomen and pelvis done. Anticoagulation was held and gastroenterology was reconsulted. Hemoglobin was checked multiple times through the day. Problem Qualifiers (1) Altered mental status: (2) Hypertension: Qualified Codes: I10 - Essential (primary) hypertension Kiel Hernandez MD December 22, 2017 08:09
[2017-12-22] MEDS: ALPRAZolam 1 MG TAB PO PRN (08:50)
[2017-12-22] MEDS: AMIODARONE 200 MG TAB PO SCH ×2 (08:50→20:57)
[2017-12-22] MEDS: FAMOTIDINE 20 MG TAB NG SCH (08:50)
[2017-12-22] MEDS: QUEtiapine FUMARATE 25 MG TAB PO SCH ×2 (08:50→20:58)
[2017-12-22] MEDS: APIXABAN 5 MG TABLET PO SCH (08:50)
[2017-12-22] MEDS: SODIUM CHLORIDE FLUSH BID IV FLUSH SCH ×2 (08:51→20:57)
[2017-12-22] MEDS: CHLORHEXIDINE 0.12% (ORAL KIT) 15 ML CUP MT SCH ×2 (08:51→20:00)
[2017-12-22] MEDS: DOCUSATE SODIUM 50 MG/SENNA 8.6 MG TAB PO SCH ×2 (08:53→20:58)
[2017-12-22] MEDS: ASPIRIN 81 MG CHEW TAB NG SCH (08:53)
[2017-12-22] MEDS: NYSTATIN 100,000 U/GM PWD 15 GM BTL TOPICAL SCH ×2 (08:54→20:58)
[2017-12-22] MEDS ORDERED: LORazepam 2 MG/ML VIAL IV ONE (11:15)
--- NOTE | 2017-12-22 12:37 | RADRPT ---
EXAM DATE/TIME: 12/22/2017 12:13 [facility] COMPARISON: No previous studies available for comparison. INDICATIONS : Abdominal pain. ORAL CONTRAST: No oral contrast ingested. RADIATION DOSE: 11.56 CTDIvol (mGy) MEDICAL HISTORY : Hypertension. SURGICAL HISTORY : None. ENCOUNTER: Initial ACUITY: 1 day PAIN SCALE: Non-responsive LOCATION: abdomen TECHNIQUE: Volumetric scanning of the abdomen and pelvis was performed. Using automated exposure control and ad justment of the mA and/or kV according to patient size, radiation dose was kept as low as reasonably achievable to obtain optimal diagnostic quality images. DICOM format image data is available electro nically for review and comparison. The lack of IV contrast limits the diagnosis of certain organ path ology. FINDINGS: LOWER LUNGS: Small to moderate bilateral pleural effusions, right greater than left. LIVER: Homogeneous density without lesion. There is no dilation of the biliary tree. No calcified gallston es. SPLEEN: Normal size without lesion. PANCREAS: Within normal limits. KIDNEYS: Normal in size and shape. There is no mass or hydronephrosis. Tiny calcification associated with the midpole left kidney. This could either be a tiny stone versus vascular calcification. ADRENAL GLANDS: Within normal limits. VASCULAR: There is no aortic aneurysm. BOWEL/MESENTERY: The stomach, small bowel, and colon demonstrate no acute abnormality. There is a small amount of free fluid in the pelvis. There is nonspecific edema throughout the mesenteric fat. No free air is demons trated. There is a gastrostomy tube within the stomach. ABDOMINAL WALL: There is diffuse prominent edema throughout the subcutaneous soft tissues of the body wall. This prashanth acteristic of anasarca. RETROPERITONEUM: A few nonspecific prior lymph nodes are demonstrated. The lymph nodes measure 9 mm or less in size. BLADDER: Decompressed. There is a Baca catheter in urinary bladder. REPRODUCTIVE: There is a cyst associated with the left ovary measuring 1.6 cm. No definite pelvic masses. There is free fluid in the pelvis. INGUINAL: There is no lymphadenopathy or hernia. MUSCULOSKELETAL: Diffuse degenerative changes. CONCLUSION: 1. There is diffuse prominent body anasarca 2. Small amount of free fluid deep in the pelvis with edema throughout the mesenteric fat. This is mo st likely related to patient's anasarca. 3. Bilateral pleural effusions. 4. Left ovarian cyst measuring 1.6 cm. 5. Gastrostomy tube in the stomach. Chinmay Espinoza MD on December 22, 2017 at 12:30 Board Certified Radiologist. This report was verified electronically.
[2017-12-22 13:36] LABS: AUTOMATED NEUTROPHIL # 7.8 TH/MM3 (1.8-7.7); BASOPHIL # 0.1 TH/MM3 (0-0.2); BASOPHIL % 0.7 % (0.0-2.0); EOSINOPHIL # 0.2 TH/MM3 (0-0.4); EOSINOPHIL % 2.5 % (0.0-4.0); HEMATOCRIT 25.1 % (35.0-46.0); HEMOGLOBIN 8.7 GM/DL (11.6-15.3); LYMPH % 10.2 % (9.0-44.0); MEAN CELL VOLUME 83.2 FL (80.0-100.0); MEAN CORPUSCULAR HEMOGLOBIN 28.8 PG (27.0-34.0); MEAN CORPUSCULAR HGB CONC 34.7 % (32.0-36.0); MEAN PLATELET VOLUME 9.2 FL (7.0-11.0); MONO % 6.1 % (0.0-8.0); MONOCYTE # 0.6 TH/MM3 (0-0.9); NEUT % 80.5 % (16.0-70.0); PLATELET COUNT 291 TH/MM3 (150-450); RED BLOOD COUNT 3.02 MIL/MM3 (4.00-5.30); RED CELL DISTRIBUTION WIDTH 13.3 % (11.6-17.2); WHITE BLOOD COUNT 9.7 TH/MM3 (4.0-11.0)
--- NOTE | 2017-12-22 15:19 | PD.CONS ---
HPI History of Present Illness This is a 77 year old female admitted in the intensive care unit at [place] who was unable to be weaned from the vent and now has tracheostomy and PEG. Our service did EGD with PEG placement on December 17 --> Esophagus normal. Stomach mild to moderate gastritis. PEG was placed without any immediate complications. Duodenum normal. Pathology revealed mild chronic gastritis, negative for H. Pylori. Pt was tolerating tube feeds, our service signed off. We have been reconsulted today for reports of bleeding around PEG site. Per RN, he first noticed the bleeding around 11 this morning after PT was working with patient. At that time the tube feeding was discontinued. Pt also received Eliquis this morning which is now on hold. Per RN PEG was still flushing fine. CT abdomen and pelvis was done which revealed gastrostomy tube to be in stomach, no other significant findings regarded to current issue of PEG bleeding. (Melany Diaz) PFSH Past Medical History HTN TIA Past Surgical History cataracts breast augmentation (Melany Diaz) Coded Allergies: doxycycline (Unverified Allergy, Severe, 12/04/17) ALTERED MENTAL STATUS minocycline (Unverified Allergy, Severe, 12/04/17) ALTERED MENTAL STATUS tigecycline (Unverified Allergy, Severe, 12/04/17) ALTERED MENTAL STATUS Family History unk Social History 2 beers daily 5 cigarettes daily (Melany Diaz) Review of Systems Unable to obtain (Melany Diaz) GI Exam Vitals I&O Vital Signs Date Time Temp Pulse Resp B/P (MAP) Pulse Ox O2 Delivery O2 Flow Rate FiO2 12/22/17 12:00 100 100 12/22/17 11:52 99 35 12/22/17 08:21 98 35 12/22/17 06:09 16 12/22/17 06:00 70 12/22/17 04:28 98 35 12/22/17 04:00 77 36 155/68 (97) 100 12/22/17 04:00 71 12/22/17 04:00 35 12/22/17 02:00 71 12/22/17 00:18 100 35 12/22/17 00:06 98.7 71 16 115/52 (73) 99 12/22/17 00:00 70 12/22/17 00:00 35 12/21/17 22:00 80 12/21/17 20:52 100 35 12/21/17 20:00 99.1 86 36 158/65 (96) 96 12/21/17 20:00 35 12/21/17 20:00 80 12/21/17 18:00 80 12/21/17 16:00 35 12/21/17 16:00 79 12/21/17 16:00 98.7 79 22 126/45 (72) 98 12/21/17 15:48 98 35 I/O 12/21/17 12/21/17 12/21/17 12/22/17 12/22/17 12/22/17 07:00 15:00 23:00 07:00 15:00 23:00 Intake Total 954 ml 270 ml 694 ml 800 ml Output Total 275 ml 350 ml 325 ml Balance 679 ml 270 ml 344 ml 475 ml IV Total 221 ml 270 ml 70 ml Tube Feeding 533 ml 624 ml 600 ml Tube Irrigant 200 ml Other 200 ml Output Urine Total 275 ml 350 ml 325 ml # Bowel Movements 0 1 Imaging Last Impressions Chest X-Ray 12/22/17 0600 Signed Impressions: Service Date/Time: Friday, December 22, 2017 03:35 - CONCLUSION: Bilateral low lobe infiltrates and pleural effusions are unchanged. Cardiac silhouette is widened Edgard eJssica MD Abdomen/Pelvis CT 12/22/17 0000 Signed Impressions: Service Date/Time: Friday, December 22, 2017 12:13 - CONCLUSION: 1. There is diffuse prominent body anasarca 2. Small amount of free fluid deep in the pelvis with edema throughout the mesenteric fat. This is most likely related to patient's anasarca. 3. Bilateral pleural effusions. 4. Left ovarian cyst measuring 1.6 cm. 5. Gastrostomy tube in the stomach. Chinmay Espinoza MD Liver Ultrasound 12/11/17 0000 Signed Impressions: Service Date/Time: Monday, December 11, 2017 13:59 - CONCLUSION: 1. Liver is prominent with no focal mass lesions or fatty infiltration. 2. Trace fluid about the liver. 3. Bilateral pleural effusions. Mahendra Poe MD Chest CT 12/04/17 1154 Signed Impressions: Service Date/Time: Monday, December 04, 2017 12:43 - CONCLUSION: Probable mild congestive failure with trace pleural effusions. No evidence for mass. Jean-Paul Hoffmann MD FACR Head CT 12/04/17 1126 Signed Impressions: Service Date/Time: Monday, December 04, 2017 12:37 - CONCLUSION: Stable brain appearance. No acute intracranial findings Anam Rojas MD Neck Magnetic Resonance Angiography 12/04/17 0000 Signed Impressions: Service Date/Time: Monday, December 04, 2017 20:36 - CONCLUSION: 1. Mild plaque at the right carotid bulb/proximal internal carotid artery without significant stenosis. 2. Significant opacification of the aortic arch and origins of the great vessels is not present. These areas cannot be evaluated. Anam Donis MD Head Magnetic Resonance Angiography 12/04/17 0000 Signed Impressions: Service Date/Time: Monday, December 04, 2017 20:36 - CONCLUSION: No acute disease. Anam Donis MD Brain MRI 12/04/17 0000 Signed Impressions: Service Date/Time: Monday, December 04, 2017 20:36 - CONCLUSION: 1. Small punctate areas of signal abnormality in the posterior left temporal lobe which may represent small focal areas of acute infarction. 2. Several areas of signal abnormality in the basal ganglia and left posterior temporal lobes likely from prior hemorrhage. 3. Demyelination within the cerebral and pontine white matter likely from small vessel ischemic change. Anam Donis MD Laboratory Test 12/21/17 17:49 12/22/17 03:24 12/22/17 12:44 Activated Partial Thromboplast Time 25.2 SEC White Blood Count 6.5 TH/MM3 9.7 TH/MM3 Red Blood Count 2.70 MIL/MM3 3.02 MIL/MM3 Hemoglobin 7.5 GM/DL 8.7 GM/DL Hematocrit 22.5 % 25.1 % Mean Corpuscular Volume 83.3 FL 83.2 FL Mean Corpuscular Hemoglobin 27.8 PG 28.8 PG Mean Corpuscular Hemoglobin Concent 33.3 % 34.7 % Red Cell Distribution Width 13.2 % 13.3 % Platelet Count 249 TH/MM3 291 TH/MM3 Mean Platelet Volume 9.6 FL 9.2 FL Blood Urea Nitrogen 45 MG/DL Creatinine 1.12 MG/DL Random Glucose 103 MG/DL Calcium Level 8.3 MG/DL Sodium Level 146 MEQ/L Potassium Level 4.1 MEQ/L Chloride Level 109 MEQ/L Carbon Dioxide Level 30.3 MEQ/L Anion Gap 7 MEQ/L Estimat Glomerular Filtration Rate 47 ML/MIN Neutrophils (%) (Auto) 80.5 % Lymphocytes (%) (Auto) 10.2 % Monocytes (%) (Auto) 6.1 % Eosinophils (%) (Auto) 2.5 % Basophils (%) (Auto) 0.7 % Neutrophils # (Auto) 7.8 TH/MM3 Lymphocytes # (Auto) 1.0 TH/MM3 Monocytes # (Auto) 0.6 TH/MM3 Eosinophils # (Auto) 0.2 TH/MM3 Basophils # (Auto) 0.1 TH/MM3 CBC Comment DIFF FINAL Differential Comment Date/Time Source Procedure Growth Status 12/12/17 07:29 Blood Peripheral Aerobic Blood Culture - Final NO GROWTH IN 5 DAYS Complete 12/12/17 07:29 Blood Peripheral Anaerobic Blood Culture - Final NO GROWTH IN 5 DAYS Complete 12/04/17 14:50 Cerebral Spinal Fluid Lumbar Puncture Fungal Smear - Final NO FUNGAL ELEMENTS SEEN. Resulted 12/04/17 14:50 Cerebral Spinal Fluid Lumbar Puncture Fungal Culture - Preliminary NO GROWTH IN 2 WEEKS Resulted 12/12/17 12:00 Sputum Endotracheal Gram Stain - Final Complete 12/12/17 12:00 Sputum Endotracheal Sputum Culture - Final MODERATE GROWTH NORMAL RESPIRATORY GURMEET Complete 12/12/17 17:30 Urine Clean Catch Urine Culture - Final NO GROWTH IN 48 HOURS. Complete Physical Examination HEENT: Normocephalic; atraumatic CHEST: CPAP, tolerating CARDIAC: RRR ABDOMEN: Soft, nondistended, bowel sounds active. 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 Stomach mild to moderate gastritis. PEG was placed without any immediate complications. Duodenum normal. Biopsy taken from stomach. Ancef used for antibiotic prophylaxis Nutrition recommendations: Jevity 1.5 with goal rate of 50 mL/hr- currently running at 10 mL/hr RECONSULT (12/22) - Bleeding around PEG site that began at 11am today per HPI CT abdomen and pelvis W/O IV contrast reveals G-tube to be in the stomach, no other significant findings regarding bleeding. TF was discontinued at 11am this morning when bleeding was noticed. Pt did receive Eliquis before bleeding began. Plan: EGD tomorrow Obtain consent 2 U FFP today 1 U cryoprecipitate today Keep TF off Keep Eliquis on hold Serial H/H Protonix gtt Further recommendations based on clinical course and results of above Pt has been seen and examined by myself and Dr. Mccormick and this note is written on his behalf (Melany Diaz) Physician Comments Seen and examined with RICARDO, bleeding at peg site. Given 2 units of FFP/1 unit of cryoprecipitate. If bleeding does not stop egd planned. CT -ve. Eliquis and TF on hold for now. Monitor H/H. If becomes unstable consider angiogram / embolization. Discussed with Dr Hernandez. Thank you (Lraissa Mccormick MD) Melany Diaz December 22, 2017 15:19 Larissa Mccormick MD December 22, 2017 17:50
[2017-12-22] MEDS: PANTOPRAZOLE INJ 80 MG in SODIUM CHLORIDE 0.9% INJ 100 ML IV SCH (16:25)
[2017-12-22] MEDS ORDERED: PANTOPRAZOLE SODIUM 40 MG VIAL IV PUSH SCH (17:00)
[2017-12-22 17:35] LABS: HEMATOCRIT 23.3 % (35.0-46.0); HEMOGLOBIN 7.8 GM/DL (11.6-15.3)
[2017-12-22 17:39] LABS: INTERNATIONAL NORMALIZED RATIO 1.1 RATIO; PROTHROMBIN TIME - PATIENT 11.4 SEC (9.8-11.6)
[2017-12-22 21:39] LABS: AUTOMATED NEUTROPHIL # 6.6 TH/MM3 (1.8-7.7); BASOPHIL # 0.1 TH/MM3 (0-0.2); BASOPHIL % 0.7 % (0.0-2.0); EOSINOPHIL # 0.2 TH/MM3 (0-0.4); EOSINOPHIL % 2.8 % (0.0-4.0); HEMATOCRIT 22.8 % (35.0-46.0); HEMOGLOBIN 7.6 GM/DL (11.6-15.3); LYMPH % 10.5 % (9.0-44.0); LYMPHOCYTE # 0.9 TH/MM3 (1.0-4.8); MEAN CELL VOLUME 82.8 FL (80.0-100.0); MEAN CORPUSCULAR HEMOGLOBIN 27.6 PG (27.0-34.0); MEAN CORPUSCULAR HGB CONC 33.3 % (32.0-36.0); MEAN PLATELET VOLUME 9.5 FL (7.0-11.0); MONO % 6.5 % (0.0-8.0); MONOCYTE # 0.5 TH/MM3 (0-0.9); NEUT % 79.5 % (16.0-70.0); PLATELET COUNT 267 TH/MM3 (150-450); RED BLOOD COUNT 2.75 MIL/MM3 (4.00-5.30); RED CELL DISTRIBUTION WIDTH 13.2 % (11.6-17.2); WHITE BLOOD COUNT 8.3 TH/MM3 (4.0-11.0)
[2017-12-22 22:06] LABS: INTERNATIONAL NORMALIZED RATIO 1.1 RATIO; PROTHROMBIN TIME - PATIENT 11.4 SEC (9.8-11.6)
[2017-12-23] VITALS (37 sets, daily range): BP systolic 137–200; BP diastolic 60–111; PULSE 60–101; RESP 15–44; TEMP 97.7–100.5; O2SAT 94–100
[2017-12-23] MEDS: FREE WATER G-TUBE SCH ×3 (01:00→16:01)
[2017-12-23] MEDS: PANTOPRAZOLE INJ 80 MG in SODIUM CHLORIDE 0.9% INJ 100 ML IV SCH ×3 (01:51→20:41)
[2017-12-23] MEDS: CHLORHEXIDINE GLUCONATE 2 % 1 PACK (2 CLOTHS) TOP SCH (03:39)
[2017-12-23 04:36] LABS: AUTOMATED NEUTROPHIL # 5.5 TH/MM3 (1.8-7.7); BASOPHIL # 0.1 TH/MM3 (0-0.2); EOSINOPHIL # 0.2 TH/MM3 (0-0.4); EOSINOPHIL % 2.6 % (0.0-4.0); LYMPH % 13.5 % (9.0-44.0); MEAN CELL VOLUME 81.9 FL (80.0-100.0); MEAN CORPUSCULAR HEMOGLOBIN 27.2 PG (27.0-34.0); MEAN CORPUSCULAR HGB CONC 33.2 % (32.0-36.0); MONO % 7.5 % (0.0-8.0); MONOCYTE # 0.5 TH/MM3 (0-0.9); NEUT % 75.4 % (16.0-70.0); PLATELET COUNT 252 TH/MM3 (150-450); RED BLOOD COUNT 2.45 MIL/MM3 (4.00-5.30); WHITE BLOOD COUNT 7.3 TH/MM3 (4.0-11.0)
[2017-12-23 04:47] LABS: HEMOGLOBIN 6.7 GM/DL (11.6-15.3)
[2017-12-23 04:48] LABS: HEMATOCRIT 20.1 % (35.0-46.0)
[2017-12-23 05:09] LABS: ALBUMIN 2.3 GM/DL (3.4-5.0); AST (GOT) 14 U/L (15-37); BICARBONATE 26.5 MEQ/L (21.0-32.0); BLOOD UREA NITROGEN 39 MG/DL (7-18); CALCIUM 9.1 MG/DL (8.5-10.1); CHLORIDE 110 MEQ/L (98-107); CREATININE 1.14 MG/DL (0.50-1.00); GLOMERULAR FILTRATION RATE 46 ML/MIN (>89); GLUCOSE,RANDOM 86 MG/DL (74-106); MAGNESIUM 2.2 MG/DL (1.5-2.5); SODIUM (NA) 146 MEQ/L (136-145)
[2017-12-23 05:16] LABS: ALKALINE PHOSPHATASE 157 U/L (45-117); ALT (GPT) 37 U/L (10-53); PHOSPHORUS 4.3 MG/DL (2.5-4.9); TOTAL BILIRUBIN ADULT 0.5 MG/DL (0.2-1.0); TOTAL PROTEIN 5.8 GM/DL (6.4-8.2)
[2017-12-23] MEDS: oxyCODONE HCL ORAL CONC 5 MG/0.25 ML SYRINGE PO SCH ×4 (05:43→23:03)
[2017-12-23] MEDS: ARTIFICIAL TEARS OPTH SOLN 15 ML BTL EACH EYE SCH ×3 (05:44→20:41)
--- NOTE | 2017-12-23 08:57 | HHI.CCPN ---
Subjective Remarks/Hospital Course 77-year-old female who is apparently very active at baseline, with past medical history significant for hypertension and previous TIA, tobacco abuse. She was seen last normal yesterday night at 7 PM. Her friends checked on her today morning and was found down, disoriented, staring off to the left, not answering questions. I am not able to get much further history from her. She has a fever of 101 in the ER, initially and then spiked to 103.7. ER workup included a CT scan of head which was negative for acute findings. Lab work showed a white count of 15.9 with left shift, lactic acid was 3.4, troponin was elevated at 8.7. Cardiology Dr. eMza was contacted aspirin was given patient was recommended to be started on IV heparin but was held for LP. Lumbar puncture was unremarkable nevertheless patient was started on meningitic doses of vancomycin and Rocephin. I have added ampicillin 2 g IV every 4 hours, and acyclovir 680 mg IV every 8 hours. I evaluated the patient in the ICU. Patient is severely altered tachypneic in moderate distress. Patient is aphasic with left gaze preference diminished movements of the right upper and lower extremity. A bedside echo shows reduced EF approximately 20-25%, global hypokinesis. Patient has no history of cardiomyopathy to my knowledge. At this time his stroke cannot be ruled out. Stat MRI MRA had been ordered. Due to altered mentation tachypnea and lack of airway protection patient was intubated and placed on mechanical ventilation 12/05: Remains intubated sedated. MRI brain showing small punctate areas of signal abnormality in the posterior left temporal lobe-possible small focal areas of acute infarction. Also several areas of signal abnormality in the basal ganglia and left posterior temporal lobes likely from prior hemorrhage. Demyelination within the cerebral and pontine white matter likely from small vessel ischemic change. Neurology consult. Stat EEG is pending. Fever is down trending afebrile now, developed atrial fibrillation with RVR started on amiodarone infusion. I have resumed heparin infusion. 12/06: Afebrile. Last evening the patient had decreased mat requiring additional pressor support vasopressin added to medication regimen and diminished urinary output. Patient was noted to have significant elevation in creatinine this a.m. Patient remains on vasopressin and norepinephrine vasopressor support. Patient continues on amiodarone infusion, plan to transition to p.o.. Sedation vacation initiated yesterday for EEG, per report patient following commands. Sedation vacation in progress at this time. Noticed slight elevation in WBC count, repeat urine culture pending. 12/07: Remains intubated sedated. Currently on IV heparin infusion, amiodarone infusion and vasopressin gtt to maintain MAP >65. Had developed acute kidney injury yesterday creatinine had bumped to 2. Urine output 550 mL in the last 24 hours. CMP today is pending. On sedation hold patient opens eyes weakly moves extremities do not follow commands. Remains severely encephalopathy 12/08: No events over the night. Patient remains encephalopathic, opens eyes to voice stimuli, but does not consistently follow commands. She remains on amiodarone and heparin infusions, no pressors. T-max of 99.6. I/O 2250/960, more than 11 L positive since admission if correctly documented. 12/09: Few episodes of A. fib with RVR over the night. T-max of 99.1. Patient remains intubated and sedated. No family present at bedside. 12/10: No events over the night. Patient is more awake this a.m. 30 with propofol. Good response to diuresis, T-max 100.1. In telemetry, patient currently in sinus rhythm and she continues to be on amiodarone infusion. 12/11: No events over the night. T-max of 100.2. On 35 off propofol this morning, arousable, following some commands. Diuresing well with Lasix. She remains in sinus rhythm. 12/12: Patient remains intubated and sedated, on propofol at 35. Yesterday patient tolerated CPAP trials for a little less than 2 hours. Afebrile, with a T-max of 99.8. I/O 2069/2099. Patient is arousable, tracking, following some commands. 12/13: No events over the night. T-max of 99.9. Patient is awake, on some sedation, following some commands. Urine dark with some sediment. 12/14: Patient developed worsening hematuria over the night therefore I stopped heparin drip this morning. Yesterday she tolerated CPAP for approximately 2 hours then she became tachypneic. Sedation was changed to Precedex and propofol was stopped, patient is awake and calm following commands. Still significant amount of sputum secretions. T-max of 99.1. I/O 2485/1125. 12/15: Tmax 100.2. The patient continues on Precedex infusion, with a RASS -1. No active signs of bleeding, no hematuria noted. Subcu heparin DVT prophylaxis instituted. 12/16: T-max 100.3. Patient awake and responsive on Precedex infusion. Discussion with family planned for tracheostomy and PEG placement, due to slow vent weaning. Patient continues on CPAP trials. Creatinine slightly more elevated today IV infusion increased to 100 cc/hr. 12/17: T-max 99.8. Patient tolerated CPAP trials for greater than 10 hours yesterday, on Precedex infusion. During the night the patient was more agitated , propofol infusion initiated, Precedex infusion discontinued. Plans for tracheostomy and PEG placement today. Patient continues on IV fluid 100 cc/ hour BMP pending. 12/18: Afebrile. No acute events overnight patient is postop day 1 status post tracheostomy and PEG placement tube feeds reinitiated no residuals noted will advance to goal rate today. Patient's creatinine has improved IV fluids discontinued at this time. CPAP trials to begin today. Subcu heparin resumed. 12/19: Afebrile. Patient currently on Precedex 0.8 mcgs/kg/hr. Patient is awake nodding yes and no to questions slightly anxious. The patient denies any pain. Xanax 1 mg every 6 hours as needed order. Sodium level noted to be trending slightly upward free water flushes 200 cc/8 hours initiated. 12/20: Continues on dexmedetomidine at 1.0 mcg/kg/hr. On CPAP 12 hours yesterday. Tolerated well currently on Zoloft. Tube feeds at goal. Positive BM. Awake and follows commands 4 SUBJECTIVE: 12/21: Continues on dexmedetomidine drip. Remains on CPAP. Will attempt to start quetiapine today 25 mg daily and schedule oxycodone 5 mg every 6 hours and attempt to wean off dexmedetomidine drip. Tolerating tube feeds at goal. Awake and follows commands. 12/22: No events over the night. T-max of 99.1. Patient in sinus rhythm. I/O 1764/675. Patient is awake, tolerating higher pressure support CPAP. 12/23: Still with some bleeding around the PEG tube site. Hemoglobin lower at this morning 1 unit PRBC was ordered. T-max of 99.7 over the night, 1200 mL's of urine output. Scheduled to undergo EGD today. On pantoprazole drip. Objective Vital Signs Date Time Temp Pulse Resp B/P (MAP) Pulse Ox O2 Delivery O2 Flow Rate FiO2 12/23/17 07:47 35 12/23/17 07:36 99 12/23/17 07:24 100.5 75 16 149/78 Intake and Output 12/23/17 12/23/17 12/24/17 08:00 16:00 00:00 Intake Total 930 ml Output Total 650 ml Balance 280 ml Result Diagram: 12/23/17 0418 12/23/17 0418 Imaging Last Impressions Chest X-Ray 12/22/17 0600 Signed Impressions: Service Date/Time: Friday, December 22, 2017 03:35 - CONCLUSION: Bilateral low lobe infiltrates and pleural effusions are unchanged. Cardiac silhouette is widened Edgard Jessica MD Abdomen/Pelvis CT 12/22/17 0000 Signed Impressions: Service Date/Time: Friday, December 22, 2017 12:13 - CONCLUSION: 1. There is diffuse prominent body anasarca 2. Small amount of free fluid deep in the pelvis with edema throughout the mesenteric fat. This is most likely related to patient's anasarca. 3. Bilateral pleural effusions. 4. Left ovarian cyst measuring 1.6 cm. 5. Gastrostomy tube in the stomach. Chinmay Espinoza MD Liver Ultrasound 12/11/17 0000 Signed Impressions: Service Date/Time: Monday, December 11, 2017 13:59 - CONCLUSION: 1. Liver is prominent with no focal mass lesions or fatty infiltration. 2. Trace fluid about the liver. 3. Bilateral pleural effusions. Mahendra Poe MD Chest CT 12/04/17 1154 Signed Impressions: Service Date/Time: Monday, December 04, 2017 12:43 - CONCLUSION: Probable mild congestive failure with trace pleural effusions. No evidence for mass. Jean-Paul Hoffmann MD FACR Head CT 12/04/17 1126 Signed Impressions: Service Date/Time: Monday, December 04, 2017 12:37 - CONCLUSION: Stable brain appearance. No acute intracranial findings Anam Rojas MD Neck Magnetic Resonance Angiography 12/04/17 0000 Signed Impressions: Service Date/Time: Monday, December 04, 2017 20:36 - CONCLUSION: 1. Mild plaque at the right carotid bulb/proximal internal carotid artery without significant stenosis. 2. Significant opacification of the aortic arch and origins of the great vessels is not present. These areas cannot be evaluated. Anam Donis MD Head Magnetic Resonance Angiography 12/04/17 0000 Signed Impressions: Service Date/Time: Monday, December 04, 2017 20:36 - CONCLUSION: No acute disease. Anam Donis MD Brain MRI 12/04/17 0000 Signed Impressions: Service Date/Time: Monday, December 04, 2017 20:36 - CONCLUSION: 1. Small punctate areas of signal abnormality in the posterior left temporal lobe which may represent small focal areas of acute infarction. 2. Several areas of signal abnormality in the basal ganglia and left posterior temporal lobes likely from prior hemorrhage. 3. Demyelination within the cerebral and pontine white matter likely from small vessel ischemic change. Anam Donis MD Last Impressions Chest X-Ray 12/20/17 0600 Signed Impressions: Service Date/Time: Wednesday, December 20, 2017 02:42 - CONCLUSION: Interval removal of central line. Aeration is grossly stable. Anam Rojas MD Liver Ultrasound 12/11/17 0000 Signed Impressions: Service Date/Time: Monday, December 11, 2017 13:59 - CONCLUSION: 1. Liver is prominent with no focal mass lesions or fatty infiltration. 2. Trace fluid about the liver. 3. Bilateral pleural effusions. Mahendra Poe MD Chest CT 12/04/17 1154 Signed Impressions: Service Date/Time: Monday, December 04, 2017 12:43 - CONCLUSION: Probable mild congestive failure with trace pleural effusions. No evidence for mass. Jean-Paul Hoffmann MD FACR Head CT 12/04/17 1126 Signed Impressions: Service Date/Time: Monday, December 04, 2017 12:37 - CONCLUSION: Stable brain appearance. No acute intracranial findings Anam Rojas MD Neck Magnetic Resonance Angiography 12/04/17 0000 Signed Impressions: Service Date/Time: Monday, December 04, 2017 20:36 - CONCLUSION: 1. Mild plaque at the right carotid bulb/proximal internal carotid artery without significant stenosis. 2. Significant opacification of the aortic arch and origins of the great vessels is not present. These areas cannot be evaluated. Anam Donis MD Head Magnetic Resonance Angiography 12/04/17 0000 Signed Impressions: Service Date/Time: Monday, December 04, 2017 20:36 - CONCLUSION: No acute disease. Anam Donis MD Brain MRI 12/04/17 0000 Signed Impressions: Service Date/Time: Monday, December 04, 2017 20:36 - CONCLUSION: 1. Small punctate areas of signal abnormality in the posterior left temporal lobe which may represent small focal areas of acute infarction. 2. Several areas of signal abnormality in the basal ganglia and left posterior temporal lobes likely from prior hemorrhage. 3. Demyelination within the cerebral and pontine white matter likely from small vessel ischemic change. Anam Donis MD Procedures 5/3 Pending PEG 5/3 Pending Trach Objective Remarks General - elderly lady, trached, awake, ill-appearing HEENT - pupils are equal and reactive, sclerae are anicteric, neck is supple, no neck vein distention, 8.0 Shiley tracheostomy CV - regular S1 and S2, no murmurs, rubs or gallop appreciated Chest - scattered coarse breath sounds b/l, no wheezes, good air entry Abdomen - soft, distended, non-tender, BS present, PEG tube with surrounding bloody gauze Extremities - warm, 2+ edema over lower extremities, + peripheral pulses Neuro - awake, follows some commands, moves all extremities but she remains weak A/P Problem List: (1) Acute metabolic encephalopathy ICD Code: G93.41 - Metabolic encephalopathy Status: Acute (2) Paroxysmal atrial fibrillation with rapid ventricular response ICD Code: I48.0 - Paroxysmal atrial fibrillation Status: Acute (3) Lactic acidemia ICD Code: E87.2 - Acidosis Status: Acute (4) Cardiomyopathy ICD Code: I42.9 - Cardiomyopathy, unspecified Status: Chronic (5) Non-ST elevation NM (NSTEMI) ICD Code: I21.4 - Non-ST elevation (NSTEMI) myocardial infarction Status: Acute (6) Severe sepsis ICD Code: A41.9 - Sepsis, unspecified organism; R65.20 - Severe sepsis without septic shock Status: Acute (7) Altered mental status ICD Code: R41.82 - Altered mental status, unspecified Status: Acute (8) Hypertension ICD Code: I10 - Hypertension Status: Chronic (9) LAI (acute kidney injury) ICD Code: N17.9 - Acute kidney failure, unspecified Status: Acute (10) Metabolic acidosis ICD Code: E87.2 - Acidosis Status: Acute Assessment and Plan Neuro/Psych: Acute encephalopathy - improved 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 daily Acetaminophen 650 mg by tube every 6 hours as needed fever On alprazolam 1 mg by tube every 6 hours as needed anxiety Continue low-dose quetiapine 25 twice daily and oxycodone 5 mg every 6 hours CV: A. fib with RVR -currently in sinus rhythm Nonischemic cardiomyopathy, with reduced EF History of diastolic heart failure 03/30 NSTEMI Moderate MR History of essential hypertension Currently on amiodarone 200 mg p.o. twice daily per Dr. Meza. Signed off. Previously on metoprolol tartrate 25 mg every 6 hours Echocardiogram revealed EF 55%. Bilateral atrial enlargement. Pulmonary arterial pressure 33 mmHg Previous echocardiogram 2013 revealed EF 55-60%. Grade 1 diastolic dysfunction. Continue atorvastatin 10 mg at night Resp: Vent dependent respiratory failure -status post tracheostomy 12/[address] Flor Currently in CPAP 15/5 and 35%. Albuterol/ipratropium aerosols every 6 hours with albuterol aerosols every 2 hours as needed dyspnea If tolerated we will attempt trach collar GI: Status post PEG tube placement -Dr. Mendes 12/17 Hypoalbuminemia Acute blood loss anemia Hemorrhage around the PEG tube site Tube feeds on hold Aspirin and Eliquis on hold Receiving 1 unit PRBC On pantoprazole infusion Scheduled to undergo endoscopy today Hold tube feeds of Jevity 1.5 goal 50 cc an hour per nutrition recommendations Famotidine 10 mg twice daily for GI prophylaxis Docusate sodium/senna 1 tablet twice daily for bowel regimen : History of hematuria Baca catheter has been placed for accurate I's and O's in a critically ill patient Endo: Sliding scale insulin with NovoLog with Accu-Cheks every 6 hours to maintain euglycemia can be discontinued today. No sliding scale 12/08 Renal: Creatinine currently within normal limits Monitor urine output Accurate I's and O's Heme: Normocytic anemia Receiving 1 unit PRBC Apixaban on hold ID: Off all antibiotics. Evaluated by Dr. Amaro. Believe this was aspiration pneumonia. LP/cultures also see no growth. Blood cultures 12/12 revealed staph epi likely contaminant. All remainder microbiology has no growth MSK: PT evaluate and treat FEN: Replace electrolytes as clinically indicated Access -Utilize peripheral IV. Central line if indicated right subclavian central (12/05)- (12/18) Prophylaxis -GI -famotidine -DVT -SCD Level 2 follow-up No family present at bedside Problem Qualifiers (1) Altered mental status: (2) Hypertension: Qualified Codes: I10 - Essential (primary) hypertension Kiel Hernandez MD December 23, 2017 08:57
[2017-12-23] MEDS: SODIUM CHLORIDE FLUSH BID IV FLUSH SCH ×2 (09:02→19:56)
[2017-12-23] MEDS: CHLORHEXIDINE 0.12% (ORAL KIT) 15 ML CUP MT SCH ×2 (09:02→19:55)
[2017-12-23] MEDS: QUEtiapine FUMARATE 25 MG TAB PO SCH ×2 (09:02→19:56)
[2017-12-23] MEDS: DOCUSATE SODIUM 50 MG/SENNA 8.6 MG TAB PO SCH ×2 (09:03→19:56)
[2017-12-23] MEDS: NYSTATIN 100,000 U/GM PWD 15 GM BTL TOPICAL SCH ×2 (09:03→19:56)
[2017-12-23] MEDS: AMIODARONE 200 MG TAB PO SCH ×2 (09:03→19:56)
[2017-12-23] MEDS: ALPRAZolam 1 MG TAB PO PRN (09:35)
[2017-12-23 11:48] LABS: HEMATOCRIT 22.6 % (35.0-46.0); HEMOGLOBIN 7.4 GM/DL (11.6-15.3)
[2017-12-23] MEDS ORDERED: PROPOFOL 500 MG/50 ML INJ 50 ML ONE (14:51)
[2017-12-23] MEDS ORDERED: MIDAZOLAM HCL 5 MG/ML VIAL (1 ML) ONE (14:56)
[2017-12-23] MEDS ORDERED: MIDAZOLAM HCL 5 MG/ML VIAL (1 ML) IV PUSH ONE (15:00)
[2017-12-23] MEDS ORDERED: PROPOFOL 1000 MG/100 ML INJ 100 ML IV PRN (15:00)
[2017-12-23] MEDS ORDERED: EPINEPHrine HCL (1:10,000) 1 MG/10 ML SYRINGE SQ ONE (15:20)
--- NOTE | 2017-12-23 15:30 | GIPROC ---
[facility] [address] [facility]. [facility], [address] EGD PROCEDURE REPORT EXAM DATE: 12/23/2017 PATIENT NAME: Marii Rausch MR #: [id number] BIRTHDATE: 1940 ATTENDING: Larissa Mccormick MD ORDER #: [id number] CATERING ADMINISTRATIVE ASSISTANT: John Funez and Whitney Cardenas STATUS: inpatient INDICATIONS: The patient is a 77 yr old female here for an EGD due to acute post hemorrhagic anemia, hematemesis, and melena PROCEDURE PERFORMED: EGD w/ control of bleeding MEDICATIONS: Per Anesthesia and None. TOPICAL ANESTHETIC: CONSENT: The patient understands the risks and benefits of the procedure and understands that these risks include, but are not limited to: sedation, allergic reaction, infection, perforation and/or bleeding. Alternative means of evaluation and treatment include, among others: physical exam, x-rays, and/or surgical intervention. The patient elects to proceed with this endoscopic procedure. medical equipment was checked for proper function. Hand hygiene and appropriate measures for infection prevention was taken. After the risks, benefits and alternatives of the procedure were thoroughly explained, Informed consent was verified, confirmed and timeout was successfully executed by the treatment team. The patient was anesthetized with topical anesthesia and the Pentax [id number] endoscope was introduced through the mouth and advanced to the second portion of the duodenum. Retroflexed views revealed no abnormalities The gastroscope was then slowly withdrawn and removed. ESOPHAGUS: The mucosa of the esophagus appeared normal. DUODENUM: The duodenal mucosa appeared normal. STOMACH: A single non-bleeding and shallow ulcer ranging between 5-9mm in size with surrounding edema and an adherent clot was found in the gastric body. Submucosal injection of 3ml of epinephrine 1:10,000 was performed around the bleeding site with good treatment effect. ADVERSE EVENTS: There were no complications. IMPRESSIONS: 1. The esophagus appeared normal 2. Normal duodenal mucosa 3. Single ulcer ranging between 5-9mm in size was found in the gastric body; Submucosal injection of 3ml of epinephrine 1:10,000 was performed around the bleeding site 4. Retroflexed views revealed no abnormalities RECOMMENDATIONS: 1. Continue PPI 2. Hold anticoagulation. Hold TF PATIENT CONDITION: stable DISPOSITION: Inpatient REPEAT EXAM: Return as needed for EGD Larissa Mccormick MD eSigned: Larissa Mccormick MD 12/23/2017 3:30 PM cc: PATIENT NAME: Marii Rausch MR#: [id number]
--- NOTE | 2017-12-23 16:11 | PD.PROCEDR ---
Procedure Note Procedure Moderate Sedation Diagnosis: Acute blood loss anemia Indications: EGD Consent: Obtained Airway Exam: tracheostomy Total sedation time: 15 minutes Medications: midazolam 4 mg, fentanyl 50 mcg, propofol 100 mg and propofol infusion at 30 mcg/kg/min The patient's past medical history, allergies, medications, and prior airway records were reviewed. A time-out procedure was performed. The patient underwent the above planned procedure and tolerated it well. They remained hemodynamically stable throughout. At the conclusion of the case, the patient was back to neurologic baseline and their care was turned over to the bedside RN. No immediate complications noted. Patient remained hemodynamically stable throughout the procedure. Kiel Hernandez MD December 23, 2017 16:11
[2017-12-24] VITALS (35 sets, daily range): BP systolic 141–204; BP diastolic 55–94; PULSE 53–76; RESP 8–38; TEMP 98.4–99.2; O2SAT 93–100
[2017-12-24] MEDS: FREE WATER G-TUBE SCH ×4 (00:25→23:14)
[2017-12-24] MEDS: DEXMEDETOMIDINE INJ 1,000 MCG in SODIUM CHLOR 0.9% 250 ML INJ 250 ML IV PRN (01:57)
[2017-12-24] MEDS: ALPRAZolam 1 MG TAB PO PRN ×2 (03:31→14:35)
[2017-12-24] MEDS: CHLORHEXIDINE GLUCONATE 2 % 1 PACK (2 CLOTHS) TOP SCH (03:32)
[2017-12-24 04:37] LABS: AUTOMATED NEUTROPHIL # 4.4 TH/MM3 (1.8-7.7); BASOPHIL % 0.8 % (0.0-2.0); EOSINOPHIL # 0.2 TH/MM3 (0-0.4); EOSINOPHIL % 3.8 % (0.0-4.0); HEMATOCRIT 23.1 % (35.0-46.0); HEMOGLOBIN 7.6 GM/DL (11.6-15.3); LYMPHOCYTE # 1.1 TH/MM3 (1.0-4.8); MEAN CELL VOLUME 82.3 FL (80.0-100.0); MEAN CORPUSCULAR HEMOGLOBIN 27.2 PG (27.0-34.0); MEAN PLATELET VOLUME 8.9 FL (7.0-11.0); MONO % 7.9 % (0.0-8.0); MONOCYTE # 0.5 TH/MM3 (0-0.9); NEUT % 70.5 % (16.0-70.0); PLATELET COUNT 239 TH/MM3 (150-450); RED BLOOD COUNT 2.81 MIL/MM3 (4.00-5.30); WHITE BLOOD COUNT 6.2 TH/MM3 (4.0-11.0)
[2017-12-24 04:49] LABS: ALBUMIN 2.2 GM/DL (3.4-5.0); AST (GOT) 14 U/L (15-37); BICARBONATE 22.5 MEQ/L (21.0-32.0); BLOOD UREA NITROGEN 37 MG/DL (7-18); CALCIUM 9.2 MG/DL (8.5-10.1); CHLORIDE 109 MEQ/L (98-107); CREATININE 1.08 MG/DL (0.50-1.00); GLOMERULAR FILTRATION RATE 49 ML/MIN (>89); GLUCOSE,RANDOM 68 MG/DL (74-106); SODIUM (NA) 146 MEQ/L (136-145)
[2017-12-24 04:50] LABS: ALT (GPT) 29 U/L (10-53); PHOSPHORUS 4.4 MG/DL (2.5-4.9)
--- NOTE | 2017-12-24 04:50 | RADRPT ---
EXAM DATE/TIME: 12/24/2017 02:46 [facility] COMPARISON: CHEST SINGLE AP, December 22, 2017, 3:35. INDICATIONS : Shortness of breath, possible pulmonary disease. MEDICAL HISTORY : Hypertension. Stroke. SURGICAL HISTORY : Peg tube ENCOUNTER: Subsequent ACUITY: 1 week PAIN SCORE: Non-responsive. LOCATION: Bilateral chest FINDINGS: A single AP semierect view of the chest was obtained and again demonstrates a tracheostomy tube in pl [place]. The heart size remains moderately enlarged. Abnormal opacity remains in the perihilar regions an d both lung bases. Both costophrenic angles appear blunted. The findings appear stable. The osseous s tructures remain intact with mild scoliosis. CONCLUSION: No significant change. Hari Stewart MD on December 24, 2017 at 4:47 Board Certified Radiologist. This report was verified electronically.
[2017-12-24 04:52] LABS: ALKALINE PHOSPHATASE 142 U/L (45-117); TOTAL BILIRUBIN ADULT 0.7 MG/DL (0.2-1.0); TOTAL PROTEIN 5.7 GM/DL (6.4-8.2)
[2017-12-24] MEDS: oxyCODONE HCL ORAL CONC 5 MG/0.25 ML SYRINGE PO SCH ×4 (04:58→23:13)
[2017-12-24] MEDS: ARTIFICIAL TEARS OPTH SOLN 15 ML BTL EACH EYE SCH ×3 (05:00→20:05)
[2017-12-24] MEDS ORDERED: DEXTROSE 10% INJ 1,000 ML IV SCH (06:30)
[2017-12-24] MEDS: PANTOPRAZOLE INJ 80 MG in SODIUM CHLORIDE 0.9% INJ 100 ML IV SCH (06:41)
[2017-12-24] MEDS: SODIUM CHLORIDE FLUSH BID IV FLUSH SCH ×2 (08:13→20:04)
[2017-12-24] MEDS: CHLORHEXIDINE 0.12% (ORAL KIT) 15 ML CUP MT SCH ×2 (08:13→20:04)
[2017-12-24] MEDS: NYSTATIN 100,000 U/GM PWD 15 GM BTL TOPICAL SCH ×2 (08:14→20:05)
[2017-12-24] MEDS: DOCUSATE SODIUM 50 MG/SENNA 8.6 MG TAB PO SCH ×2 (08:14→20:05)
[2017-12-24] MEDS: QUEtiapine FUMARATE 25 MG TAB PO SCH ×2 (08:14→20:05)
[2017-12-24] MEDS: AMIODARONE 200 MG TAB PO SCH ×2 (08:29→20:04)
[2017-12-24 08:42] LABS: BACTERIA, URINE OCC /hpf; BILIRUBIN, URINE NEG (NEG); BLOOD, URINE MOD (NEG); GLUCOSE,URINE NEG (NEG); KETONE, URINE 10 mg/dL (NEG); MUCUS URINE FEW /lpf (OCC); NITRITE,URINE NEG (NEG); PH, URINE 5.5 (5.0-8.5); SQUAMOUS EPITHELIAL CELL URINE 4 /hpf (0-5); URINE COLOR YELLOW (YELLW/STRAW); URINE LEUKOCYTE ESTERASE LARGE (NEG); WHITE BLOOD CELL CLUMPS MANY
--- NOTE | 2017-12-24 09:14 | HHI.CCPN ---
Subjective Remarks/Hospital Course 77-year-old female who is apparently very active at baseline, with past medical history significant for hypertension and previous TIA, tobacco abuse. She was seen last normal yesterday night at 7 PM. Her friends checked on her today morning and was found down, disoriented, staring off to the left, not answering questions. I am not able to get much further history from her. She has a fever of 101 in the ER, initially and then spiked to 103.7. ER workup included a CT scan of head which was negative for acute findings. Lab work showed a white count of 15.9 with left shift, lactic acid was 3.4, troponin was elevated at 8.7. Cardiology Dr. Meza was contacted aspirin was given patient was recommended to be started on IV heparin but was held for LP. Lumbar puncture was unremarkable nevertheless patient was started on meningitic doses of vancomycin and Rocephin. I have added ampicillin 2 g IV every 4 hours, and acyclovir 680 mg IV every 8 hours. I evaluated the patient in the ICU. Patient is severely altered tachypneic in moderate distress. Patient is aphasic with left gaze preference diminished movements of the right upper and lower extremity. A bedside echo shows reduced EF approximately 20-25%, global hypokinesis. Patient has no history of cardiomyopathy to my knowledge. At this time his stroke cannot be ruled out. Stat MRI MRA had been ordered. Due to altered mentation tachypnea and lack of airway protection patient was intubated and placed on mechanical ventilation 12/05: Remains intubated sedated. MRI brain showing small punctate areas of signal abnormality in the posterior left temporal lobe-possible small focal areas of acute infarction. Also several areas of signal abnormality in the basal ganglia and left posterior temporal lobes likely from prior hemorrhage. Demyelination within the cerebral and pontine white matter likely from small vessel ischemic change. Neurology consult. Stat EEG is pending. Fever is down trending afebrile now, developed atrial fibrillation with RVR started on amiodarone infusion. I have resumed heparin infusion. 12/06: Afebrile. Last evening the patient had decreased mat requiring additional pressor support vasopressin added to medication regimen and diminished urinary output. Patient was noted to have significant elevation in creatinine this a.m. Patient remains on vasopressin and norepinephrine vasopressor support. Patient continues on amiodarone infusion, plan to transition to p.o.. Sedation vacation initiated yesterday for EEG, per report patient following commands. Sedation vacation in progress at this time. Noticed slight elevation in WBC count, repeat urine culture pending. 12/07: Remains intubated sedated. Currently on IV heparin infusion, amiodarone infusion and vasopressin gtt to maintain MAP >65. Had developed acute kidney injury yesterday creatinine had bumped to 2. Urine output 550 mL in the last 24 hours. CMP today is pending. On sedation hold patient opens eyes weakly moves extremities do not follow commands. Remains severely encephalopathy 12/08: No events over the night. Patient remains encephalopathic, opens eyes to voice stimuli, but does not consistently follow commands. She remains on amiodarone and heparin infusions, no pressors. T-max of 99.6. I/O 2250/960, more than 11 L positive since admission if correctly documented. 12/09: Few episodes of A. fib with RVR over the night. T-max of 99.1. Patient remains intubated and sedated. No family present at bedside. 12/10: No events over the night. Patient is more awake this a.m. 30 with propofol. Good response to diuresis, T-max 100.1. In telemetry, patient currently in sinus rhythm and she continues to be on amiodarone infusion. 12/11: No events over the night. T-max of 100.2. On 35 off propofol this morning, arousable, following some commands. Diuresing well with Lasix. She remains in sinus rhythm. 12/12: Patient remains intubated and sedated, on propofol at 35. Yesterday patient tolerated CPAP trials for a little less than 2 hours. Afebrile, with a T-max of 99.8. I/O 2069/2099. Patient is arousable, tracking, following some commands. 12/13: No events over the night. T-max of 99.9. Patient is awake, on some sedation, following some commands. Urine dark with some sediment. 12/14: Patient developed worsening hematuria over the night therefore I stopped heparin drip this morning. Yesterday she tolerated CPAP for approximately 2 hours then she became tachypneic. Sedation was changed to Precedex and propofol was stopped, patient is awake and calm following commands. Still significant amount of sputum secretions. T-max of 99.1. I/O 2485/1125. 12/15: Tmax 100.2. The patient continues on Precedex infusion, with a RASS -1. No active signs of bleeding, no hematuria noted. Subcu heparin DVT prophylaxis instituted. 12/16: T-max 100.3. Patient awake and responsive on Precedex infusion. Discussion with family planned for tracheostomy and PEG placement, due to slow vent weaning. Patient continues on CPAP trials. Creatinine slightly more elevated today IV infusion increased to 100 cc/hr. 12/17: T-max 99.8. Patient tolerated CPAP trials for greater than 10 hours yesterday, on Precedex infusion. During the night the patient was more agitated , propofol infusion initiated, Precedex infusion discontinued. Plans for tracheostomy and PEG placement today. Patient continues on IV fluid 100 cc/ hour BMP pending. 12/18: Afebrile. No acute events overnight patient is postop day 1 status post tracheostomy and PEG placement tube feeds reinitiated no residuals noted will advance to goal rate today. Patient's creatinine has improved IV fluids discontinued at this time. CPAP trials to begin today. Subcu heparin resumed. 12/19: Afebrile. Patient currently on Precedex 0.8 mcgs/kg/hr. Patient is awake nodding yes and no to questions slightly anxious. The patient denies any pain. Xanax 1 mg every 6 hours as needed order. Sodium level noted to be trending slightly upward free water flushes 200 cc/8 hours initiated. 12/20: Continues on dexmedetomidine at 1.0 mcg/kg/hr. On CPAP 12 hours yesterday. Tolerated well currently on Zoloft. Tube feeds at goal. Positive BM. Awake and follows commands 4 SUBJECTIVE: 12/21: Continues on dexmedetomidine drip. Remains on CPAP. Will attempt to start quetiapine today 25 mg daily and schedule oxycodone 5 mg every 6 hours and attempt to wean off dexmedetomidine drip. Tolerating tube feeds at goal. Awake and follows commands. 12/22: No events over the night. T-max of 99.1. Patient in sinus rhythm. I/O 1764/675. Patient is awake, tolerating higher pressure support CPAP. 12/23: Still with some bleeding around the PEG tube site. Hemoglobin lower at this morning 1 unit PRBC was ordered. T-max of 99.7 over the night, 1200 mL's of urine output. Scheduled to undergo EGD today. On pantoprazole drip. 12/24: No events over the night. Bleeding around the PEG site stopped. Patient remains on pantoprazole drip and dexmedetomidine infusion. She is tolerating CPAP. T-max of 100.5 yesterday morning. Morning chest x-ray reviewed, cardiomegaly, trach is in place, still with bibasilar opacities not significantly changed. Objective Vital Signs Date Time Temp Pulse Resp B/P (MAP) Pulse Ox O2 Delivery O2 Flow Rate FiO2 12/24/17 07:16 100 40 12/24/17 06:00 54 12/24/17 05:58 16 12/24/17 04:00 98.8 170/67 (101) Intake and Output 12/24/17 12/24/17 12/25/17 08:00 16:00 00:00 Intake Total 200 ml Output Total 400 ml Balance -200 ml Result Diagram: 12/24/17 0349 12/24/17 0349 Imaging Last 24 hours Impressions Chest X-Ray 12/24/17599 Signed Impressions: Service Date/Time: December 02:46 - CONCLUSION: No significant change. Hari Stewart MD Last Impressions Chest X-Ray 12/22/17 06 Signed Impressions: Service Date/Time: Friday, December 22, 2017 03:35 - CONCLUSION: Bilateral low lobe infiltrates and pleural effusions are unchanged. Cardiac silhouette is widened Edgard Jessica MD Abdomen/Pelvis CT 12/22/17 0000 Signed Impressions: Service Date/Time: Friday, December 22, 2017 12:13 - CONCLUSION: 1. There is diffuse prominent body anasarca 2. Small amount of free fluid deep in the pelvis with edema throughout the mesenteric fat. This is most likely related to patient's anasarca. 3. Bilateral pleural effusions. 4. Left ovarian cyst measuring 1.6 cm. 5. Gastrostomy tube in the stomach. Chinmay Espinoza MD Liver Ultrasound 12/11/17 0000 Signed Impressions: Service Date/Time: Monday, December 11, 2017 13:59 - CONCLUSION: 1. Liver is prominent with no focal mass lesions or fatty infiltration. 2. Trace fluid about the liver. 3. Bilateral pleural effusions. Mahendra Poe MD Chest CT 12/04/17 1154 Signed Impressions: Service Date/Time: Monday, December 04, 2017 12:43 - CONCLUSION: Probable mild congestive failure with trace pleural effusions. No evidence for mass. Jean-Paul Hoffmann MD FACR Head CT 12/04/17 1126 Signed Impressions: Service Date/Time: Monday, December 04, 2017 12:37 - CONCLUSION: Stable brain appearance. No acute intracranial findings Anam Rojas MD Neck Magnetic Resonance Angiography 12/04/17 0000 Signed Impressions: Service Date/Time: Monday, December 04, 2017 20:36 - CONCLUSION: 1. Mild plaque at the right carotid bulb/proximal internal carotid artery without significant stenosis. 2. Significant opacification of the aortic arch and origins of the great vessels is not present. These areas cannot be evaluated. Anam Donis MD Head Magnetic Resonance Angiography 12/04/17 0000 Signed Impressions: Service Date/Time: Monday, December 04, 2017 20:36 - CONCLUSION: No acute disease. Anam Donis MD Brain MRI 12/04/17 0000 Signed Impressions: Service Date/Time: Monday, December 04, 2017 20:36 - CONCLUSION: 1. Small punctate areas of signal abnormality in the posterior left temporal lobe which may represent small focal areas of acute infarction. 2. Several areas of signal abnormality in the basal ganglia and left posterior temporal lobes likely from prior hemorrhage. 3. Demyelination within the cerebral and pontine white matter likely from small vessel ischemic change. Anam Donis MD Last Impressions Chest X-Ray 12/20/17 0600 Signed Impressions: Service Date/Time: Wednesday, December 20, 2017 02:42 - CONCLUSION: Interval removal of central line. Aeration is grossly stable. Anam Rojas MD Liver Ultrasound 12/11/17 0000 Signed Impressions: Service Date/Time: Monday, December 11, 2017 13:59 - CONCLUSION: 1. Liver is prominent with no focal mass lesions or fatty infiltration. 2. Trace fluid about the liver. 3. Bilateral pleural effusions. Mahendra Poe MD Chest CT 12/04/17 1154 Signed Impressions: Service Date/Time: Monday, December 04, 2017 12:43 - CONCLUSION: Probable mild congestive failure with trace pleural effusions. No evidence for mass. Jean-Paul Hoffmann MD FACR Head CT 12/04/17 1126 Signed Impressions: Service Date/Time: Monday, December 04, 2017 12:37 - CONCLUSION: Stable brain appearance. No acute intracranial findings Anam Rojas MD Neck Magnetic Resonance Angiography 12/04/17 0000 Signed Impressions: Service Date/Time: Monday, December 04, 2017 20:36 - CONCLUSION: 1. Mild plaque at the right carotid bulb/proximal internal carotid artery without significant stenosis. 2. Significant opacification of the aortic arch and origins of the great vessels is not present. These areas cannot be evaluated. Anam Donis MD Head Magnetic Resonance Angiography 12/04/17 0000 Signed Impressions: Service Date/Time: Monday, December 04, 2017 20:36 - CONCLUSION: No acute disease. Anam Donis MD Brain MRI 12/04/17 0000 Signed Impressions: Service Date/Time: Monday, December 04, 2017 20:36 - CONCLUSION: 1. Small punctate areas of signal abnormality in the posterior left temporal lobe which may represent small focal areas of acute infarction. 2. Several areas of signal abnormality in the basal ganglia and left posterior temporal lobes likely from prior hemorrhage. 3. Demyelination within the cerebral and pontine white matter likely from small vessel ischemic change. Anam Donis MD Procedures 5/3 Pending PEG 5/3 Pending Trach Objective Remarks General - elderly lady, trached, awake, ill-appearing HEENT - pupils equal and reactive, sclerae anicteric, neck supple, no JVD, 8.0 Shiley tracheostomy CV - regular heart sounds, no murmurs Chest - scattered coarse breath sounds b/l, no wheezes, good air entry bilateral Abdomen - soft, distended, non-tender, BS present, PEG tube in place without signs of bleeding Extremities - warm, 2+ edema over lower extremities, + peripheral pulses Neuro - awake, follows some commands, moves all extremities but she remains weak A/P Problem List: (1) Acute metabolic encephalopathy ICD Code: G93.41 - Metabolic encephalopathy Status: Acute (2) Paroxysmal atrial fibrillation with rapid ventricular response ICD Code: I48.0 - Paroxysmal atrial fibrillation Status: Acute (3) Lactic acidemia ICD Code: E87.2 - Acidosis Status: Acute (4) Cardiomyopathy ICD Code: I42.9 - Cardiomyopathy, unspecified Status: Chronic (5) Non-ST elevation CA (NSTEMI) ICD Code: I21.4 - Non-ST elevation (NSTEMI) myocardial infarction Status: Acute (6) Severe sepsis ICD Code: A41.9 - Sepsis, unspecified organism; R65.20 - Severe sepsis without septic shock Status: Acute (7) Altered mental status ICD Code: R41.82 - Altered mental status, unspecified Status: Acute (8) Hypertension ICD Code: I10 - Hypertension Status: Chronic (9) LAI (acute kidney injury) ICD Code: N17.9 - Acute kidney failure, unspecified Status: Acute (10) Metabolic acidosis ICD Code: E87.2 - Acidosis Status: Acute Assessment and Plan Neuro/Psych: Acute encephalopathy - improved 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 fib with RVR -currently in sinus rhythm Nonischemic cardiomyopathy, with reduced EF History of diastolic heart failure 03/30 NSTEMI Moderate MR History of essential hypertension Currently on amiodarone 200 mg p.o. twice daily per Dr. Meza. Signed off. Previously on metoprolol tartrate 25 mg every 6 hours Echocardiogram revealed EF 55%. Bilateral atrial enlargement. Pulmonary arterial pressure 33 mmHg Previous echocardiogram 2013 revealed EF 55-60%. Grade 1 diastolic dysfunction. Continue atorvastatin 10 mg at night Resp: Vent dependent respiratory failure -status post tracheostomy 12/[address] Flor Currently in CPAP 12/5 and 35%. Attempt trach collar for a few hours today as tolerated Vent bundle Albuterol/ipratropium aerosols every 6 hours with albuterol aerosols every 2 hours as needed dyspnea GI: Status post PEG tube placement -Dr. Mendes 12/17 Hypoalbuminemia Acute blood loss anemia Hemorrhage around the PEG tube site Tube feeds on hold Aspirin and Eliquis on hold On pantoprazole infusion Had endoscopy done yesterday Hold tube feeds - Jevity 1.5 goal 50 cc an hour per nutrition recommendations Famotidine 10 mg twice daily for GI prophylaxis Docusate sodium/senna 1 tablet twice daily for bowel regimen : History of hematuria Baca catheter has been placed for accurate I's and O's in a critically ill patient Endo: Sliding scale insulin with NovoLog with Accu-Cheks every 6 hours to maintain euglycemia can be discontinued today. No sliding scale 12/08 Borderline hypoglycemic on morning labs, glucose of 68. Start D10 at 30 until able to restart tube feeds Renal: Creatinine currently within normal limits Monitor urine output Accurate I's and O's Heme: Normocytic anemia Received 1 unit PRBC Apixaban on hold ID: Off all antibiotics. Evaluated by Dr. Amaro. Believe this was aspiration pneumonia. LP/cultures also see no growth. Blood cultures 12/12 revealed staph epi likely contaminant. All remainder microbiology has no growth Had one episode of fever on 12/23 -send cultures MSK: PT evaluate and treat FEN: Replace electrolytes as clinically indicated Access -Utilize peripheral IV. -Right subclavian central line removed Prophylaxis -GI -famotidine -DVT -SCD Level 2 follow-up No family present at bedside Problem Qualifiers (1) Altered mental status: (2) Hypertension: Qualified Codes: I10 - Essential (primary) hypertension Kiel Hernandez MD December 24, 2017 09:14
--- NOTE | 2017-12-24 11:06 | HHI.GIFU ---
Subjective Remarks Pt resting in bed. Peg site bleeding improved. (Yarelis Sweeney) Objective Vitals I&O Vital Signs Date Time Temp Pulse Resp B/P (MAP) Pulse Ox O2 Delivery O2 Flow Rate FiO2 12/24/17 07:16 100 40 12/24/17 07:16 40 12/24/17 06:00 54 12/24/17 05:58 16 12/24/17 04:07 100 40 12/24/17 04:00 98.8 56 16 170/67 (101) 100 12/24/17 04:00 56 12/24/17 04:00 40 12/24/17 02:00 58 12/24/17 00:00 40 12/24/17 00:00 98.4 59 16 163/58 (93) 100 12/24/17 00:00 59 12/23/17 23:39 100 40 12/23/17 22:00 60 12/23/17 20:00 65 12/23/17 20:00 98.2 65 16 170/74 (106) 94 12/23/17 20:00 40 12/23/17 19:43 100 40 12/23/17 17:07 16 12/23/17 16:28 100 40 12/23/17 16:00 40 12/23/17 16:00 97.7 12/23/17 16:00 97.7 64 22 161/87 (111) 100 12/23/17 12:00 98.8 66 21 100 12/23/17 12:00 35 12/23/17 11:48 99 35 12/23/17 11:45 61 21 98 12/23/17 11:31 62 21 146/66 (92) 99 12/23/17 11:30 62 21 99 12/23/17 11:15 66 21 100 12/23/17 11:00 66 22 142/66 (91) 97 I/O 12/23/17 12/23/17 12/23/17 12/24/17 12/24/17 12/24/17 07:00 15:00 23:00 07:00 15:00 23:00 Intake Total 930 ml 900 ml 500 ml 200 ml Output Total 650 ml 450 ml 400 ml Balance 280 ml 900 ml 50 ml -200 ml Intake Oral 0 ml 0 ml IV Total 100 ml 450 ml Packed Cells 400 ml FFP 450 ml Cryoprecipitate 470 ml Blood Product IV Normal Saline Flush 10 ml 400 ml Tube Irrigant 200 ml Other 50 ml Output Urine Total 650 ml 450 ml 400 ml # Bowel Movements 0 0 0 Laboratory Laboratory Tests Test 12/23/17 11:06 12/23/17 19:14 12/24/17 03:49 12/24/17 08:00 Hemoglobin 7.4 7.6 Hematocrit 22.6 23.1 Activated Partial Thromboplast Time 29.8 White Blood Count 6.2 Red Blood Count 2.81 Mean Corpuscular Volume 82.3 Mean Corpuscular Hemoglobin 27.2 Mean Corpuscular Hemoglobin Concent 33.0 Red Cell Distribution Width 13.0 Platelet Count 239 Mean Platelet Volume 8.9 Neutrophils (%) (Auto) 70.5 Lymphocytes (%) (Auto) 17.0 Monocytes (%) (Auto) 7.9 Eosinophils (%) (Auto) 3.8 Basophils (%) (Auto) 0.8 Neutrophils # (Auto) 4.4 Lymphocytes # (Auto) 1.1 Monocytes # (Auto) 0.5 Eosinophils # (Auto) 0.2 Basophils # (Auto) 0.0 CBC Comment DIFF FINAL Differential Comment Blood Urea Nitrogen 37 Creatinine 1.08 Random Glucose 68 Total Protein 5.7 Albumin 2.2 Calcium Level 9.2 Phosphorus Level 4.4 Magnesium Level 2.0 Alkaline Phosphatase 142 Aspartate Amino Transf (AST/SGOT) 14 Alanine Aminotransferase (ALT/SGPT) 29 Total Bilirubin 0.7 Sodium Level 146 Potassium Level 4.3 Chloride Level 109 Carbon Dioxide Level 22.5 Anion Gap 15 Estimat Glomerular Filtration Rate 49 Urine Color YELLOW Urine Turbidity HAZY Urine pH 5.5 Urine Specific [place] 1.017 Urine Protein 30 Urine Glucose (UA) NEG Urine Ketones 10 Urine Occult Blood MOD Urine Nitrite NEG Urine Bilirubin NEG Urine Urobilinogen LESS THAN 2.0 Urine Leukocyte Esterase LARGE Urine RBC 49 Urine WBC Urine WBC Clumps MANY Urine Squamous Epithelial Cells 4 Urine Bacteria OCC Urine Mucus FEW Urine Yeast with Hyphae FEW Urine Yeast (Budding) MOD Microscopic Urinalysis Comment CATH-CULTURE IND Date/Time Source Procedure Growth Status 12/24/17 08:11 Blood Peripheral Aerobic Blood Culture Pending Received 12/24/17 08:11 Blood Peripheral Anaerobic Blood Culture Pending Received 12/04/17 14:50 Cerebral Spinal Fluid Lumbar Puncture Fungal Smear - Final NO FUNGAL ELEMENTS SEEN. Resulted 12/04/17 14:50 Cerebral Spinal Fluid Lumbar Puncture Fungal Culture - Preliminary NO GROWTH IN 2 WEEKS Resulted 12/24/17 07:00 Sputum Endotracheal Gram Stain Pending Received 12/24/17 07:00 Sputum Endotracheal Sputum Culture Pending Received 12/24/17 08:00 Urine Catheterized Urine Urine Culture Pending Received Imaging Last Impressions Chest X-Ray 12/24/17 0600 Signed Impressions: Service Date/Time: December 02:46 - CONCLUSION: No significant change. Hari Stewart MD Abdomen/Pelvis CT 12/22/17 0000 Signed Impressions: Service Date/Time: Friday, December 22, 2017 12:13 - CONCLUSION: 1. There is diffuse prominent body anasarca 2. Small amount of free fluid deep in the pelvis with edema throughout the mesenteric fat. This is most likely related to patient's anasarca. 3. Bilateral pleural effusions. 4. Left ovarian cyst measuring 1.6 cm. 5. Gastrostomy tube in the stomach. Chinmay Espinoza MD Liver Ultrasound 12/11/17 0000 Signed Impressions: Service Date/Time: Monday, December 11, 2017 13:59 - CONCLUSION: 1. Liver is prominent with no focal mass lesions or fatty infiltration. 2. Trace fluid about the liver. 3. Bilateral pleural effusions. Mahendra Poe MD Chest CT 12/04/17 1154 Signed Impressions: Service Date/Time: Monday, December 04, 2017 12:43 - CONCLUSION: Probable mild congestive failure with trace pleural effusions. No evidence for mass. Jean-Paul Hoffmann MD FACR Head CT 12/04/17 1126 Signed Impressions: Service Date/Time: Monday, December 04, 2017 12:37 - CONCLUSION: Stable brain appearance. No acute intracranial findings Anam Rojas MD Neck Magnetic Resonance Angiography 12/04/17 0000 Signed Impressions: Service Date/Time: Monday, December 04, 2017 20:36 - CONCLUSION: 1. Mild plaque at the right carotid bulb/proximal internal carotid artery without significant stenosis. 2. Significant opacification of the aortic arch and origins of the great vessels is not present. These areas cannot be evaluated. Anam Donis MD Head Magnetic Resonance Angiography 12/04/17 0000 Signed Impressions: Service Date/Time: Monday, December 04, 2017 20:36 - CONCLUSION: No acute disease. Anam Donis MD Brain MRI 12/04/17 0000 Signed Impressions: Service Date/Time: Monday, December 04, 2017 20:36 - CONCLUSION: 1. Small punctate areas of signal abnormality in the posterior left temporal lobe which may represent small focal areas of acute infarction. 2. Several areas of signal abnormality in the basal ganglia and left posterior temporal lobes likely from prior hemorrhage. 3. Demyelination within the cerebral and pontine white matter likely from small vessel ischemic change. Anam Donis MD Physical Exam HEENT: Normocephalic; atraumatic trach to vent CHEST: CTA. CARDIAC: RRR ABDOMEN: Soft, nondistended, bowel sounds active. 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 Stomach mild to moderate gastritis. PEG was placed without any immediate complications. Duodenum normal. Biopsy taken from stomach. Ancef used for antibiotic prophylaxis Nutrition recommendations: Jevity 1.5 with goal rate of 50 mL/hr- currently running at 10 mL/hr RECONSULT (12/22) - Bleeding around PEG site that began at 11am today per HPI CT abdomen and pelvis W/O IV contrast reveals G-tube to be in the stomach, no other significant findings regarding bleeding. TF was discontinued at 11am this morning when bleeding was noticed. Pt did receive Eliquis before bleeding began. - 12/24/18 s/p EGD revealing single ulcer, epi inj around bleeding site. HH relatively stable. no active bleeding seen. Plan: - ok to restart TF - ok resume anticoag - PPI twice daily - GI will sign off. please reconsult if needed. Pt has been seen and examined by myself and Dr. Mccormick and this note is written on his behalf (Yarelis Sweeney) Physician Comments Seen and examined with [employer], s/p egd with injection. H/H stable, no further bleeding. Restart TF, Restart anticoagulation tomorrow. Monitor H/H. Gi will sign off. Thank you. (Larissa Mccormick MD) Yarelis Sweeney December 24, 2017 11:06 Larissa Mccormick MD December 24, 2017 14:41
[2017-12-24] MEDS: PANTOPRAZOLE SODIUM 40 MG VIAL IV PUSH SCH ×2 (13:00→23:16)
[2017-12-24] MEDS ORDERED: FUROSEMIDE 40 MG/4 ML VIAL IV PUSH ONE (14:00)
[2017-12-24] MEDS ORDERED: PANTOPRAZOLE SOD 40 MG DELAYED RELEASE TAB PO SCH (21:00)
[2017-12-25] VITALS (36 sets, daily range): BP systolic 121–169; BP diastolic 48–89; PULSE 53–94; RESP 16–58; TEMP 98.3–99.6; O2SAT 96–100
[2017-12-25] MEDS: DEXMEDETOMIDINE INJ 1,000 MCG in SODIUM CHLOR 0.9% 250 ML INJ 250 ML IV PRN (00:19)
[2017-12-25] MEDS: CHLORHEXIDINE GLUCONATE 2 % 1 PACK (2 CLOTHS) TOP SCH (04:00)
[2017-12-25] MEDS: oxyCODONE HCL ORAL CONC 5 MG/0.25 ML SYRINGE PO SCH ×4 (04:12→22:35)
[2017-12-25] MEDS: ARTIFICIAL TEARS OPTH SOLN 15 ML BTL EACH EYE SCH ×3 (04:13→20:57)
[2017-12-25 06:24] LABS: AUTOMATED NEUTROPHIL # 3.3 TH/MM3 (1.8-7.7); BASOPHIL % 0.8 % (0.0-2.0); EOSINOPHIL # 0.2 TH/MM3 (0-0.4); EOSINOPHIL % 4.6 % (0.0-4.0); HEMATOCRIT 23.6 % (35.0-46.0); LYMPH % 19.6 % (9.0-44.0); MEAN CELL VOLUME 80.6 FL (80.0-100.0); MEAN CORPUSCULAR HEMOGLOBIN 27.4 PG (27.0-34.0); MEAN PLATELET VOLUME 9.2 FL (7.0-11.0); MONO % 8.2 % (0.0-8.0); MONOCYTE # 0.4 TH/MM3 (0-0.9); NEUT % 66.8 % (16.0-70.0); PLATELET COUNT 244 TH/MM3 (150-450); RED BLOOD COUNT 2.92 MIL/MM3 (4.00-5.30); WHITE BLOOD COUNT 4.9 TH/MM3 (4.0-11.0)
[2017-12-25 06:57] LABS: ALT (GPT) 25 U/L (10-53); AST (GOT) 12 U/L (15-37); BICARBONATE 26.6 MEQ/L (21.0-32.0); CALCIUM 8.8 MG/DL (8.5-10.1); CHLORIDE 108 MEQ/L (98-107); CREATININE 1.16 MG/DL (0.50-1.00); GLOMERULAR FILTRATION RATE 46 ML/MIN (>89); GLUCOSE,RANDOM 95 MG/DL (74-106); MAGNESIUM 1.9 MG/DL (1.5-2.5); PHOSPHORUS 4.1 MG/DL (2.5-4.9); SODIUM (NA) 144 MEQ/L (136-145)
[2017-12-25 07:04] LABS: ALKALINE PHOSPHATASE 134 U/L (45-117); BLOOD UREA NITROGEN 33 MG/DL (7-18); TOTAL BILIRUBIN ADULT 0.4 MG/DL (0.2-1.0); TOTAL PROTEIN 5.6 GM/DL (6.4-8.2)
[2017-12-25] MEDS: FREE WATER G-TUBE SCH ×2 (09:00→17:00)
--- NOTE | 2017-12-25 09:41 | HHI.CCPN ---
Subjective Remarks/Hospital Course 77-year-old female who is apparently very active at baseline, with past medical history significant for hypertension and previous TIA, tobacco abuse. She was seen last normal yesterday night at 7 PM. Her friends checked on her today morning and was found down, disoriented, staring off to the left, not answering questions. I am not able to get much further history from her. She has a fever of 101 in the ER, initially and then spiked to 103.7. ER workup included a CT scan of head which was negative for acute findings. Lab work showed a white count of 15.9 with left shift, lactic acid was 3.4, troponin was elevated at 8.7. Cardiology Dr. Meza was contacted aspirin was given patient was recommended to be started on IV heparin but was held for LP. Lumbar puncture was unremarkable nevertheless patient was started on meningitic doses of vancomycin and Rocephin. I have added ampicillin 2 g IV every 4 hours, and acyclovir 680 mg IV every 8 hours. I evaluated the patient in the ICU. Patient is severely altered tachypneic in moderate distress. Patient is aphasic with left gaze preference diminished movements of the right upper and lower extremity. A bedside echo shows reduced EF approximately 20-25%, global hypokinesis. Patient has no history of cardiomyopathy to my knowledge. At this time his stroke cannot be ruled out. Stat MRI MRA had been ordered. Due to altered mentation tachypnea and lack of airway protection patient was intubated and placed on mechanical ventilation 12/05: Remains intubated sedated. MRI brain showing small punctate areas of signal abnormality in the posterior left temporal lobe-possible small focal areas of acute infarction. Also several areas of signal abnormality in the basal ganglia and left posterior temporal lobes likely from prior hemorrhage. Demyelination within the cerebral and pontine white matter likely from small vessel ischemic change. Neurology consult. Stat EEG is pending. Fever is down trending afebrile now, developed atrial fibrillation with RVR started on amiodarone infusion. I have resumed heparin infusion. 12/06: Afebrile. Last evening the patient had decreased mat requiring additional pressor support vasopressin added to medication regimen and diminished urinary output. Patient was noted to have significant elevation in creatinine this a.m. Patient remains on vasopressin and norepinephrine vasopressor support. Patient continues on amiodarone infusion, plan to transition to p.o.. Sedation vacation initiated yesterday for EEG, per report patient following commands. Sedation vacation in progress at this time. Noticed slight elevation in WBC count, repeat urine culture pending. 12/07: Remains intubated sedated. Currently on IV heparin infusion, amiodarone infusion and vasopressin gtt to maintain MAP >65. Had developed acute kidney injury yesterday creatinine had bumped to 2. Urine output 550 mL in the last 24 hours. CMP today is pending. On sedation hold patient opens eyes weakly moves extremities do not follow commands. Remains severely encephalopathy 12/08: No events over the night. Patient remains encephalopathic, opens eyes to voice stimuli, but does not consistently follow commands. She remains on amiodarone and heparin infusions, no pressors. T-max of 99.6. I/O 2250/960, more than 11 L positive since admission if correctly documented. 12/09: Few episodes of A. fib with RVR over the night. T-max of 99.1. Patient remains intubated and sedated. No family present at bedside. 12/10: No events over the night. Patient is more awake this a.m. 30 with propofol. Good response to diuresis, T-max 100.1. In telemetry, patient currently in sinus rhythm and she continues to be on amiodarone infusion. 12/11: No events over the night. T-max of 100.2. On 35 off propofol this morning, arousable, following some commands. Diuresing well with Lasix. She remains in sinus rhythm. 12/12: Patient remains intubated and sedated, on propofol at 35. Yesterday patient tolerated CPAP trials for a little less than 2 hours. Afebrile, with a T-max of 99.8. I/O 2069/2099. Patient is arousable, tracking, following some commands. 12/13: No events over the night. T-max of 99.9. Patient is awake, on some sedation, following some commands. Urine dark with some sediment. 12/14: Patient developed worsening hematuria over the night therefore I stopped heparin drip this morning. Yesterday she tolerated CPAP for approximately 2 hours then she became tachypneic. Sedation was changed to Precedex and propofol was stopped, patient is awake and calm following commands. Still significant amount of sputum secretions. T-max of 99.1. I/O 2485/1125. 12/15: Tmax 100.2. The patient continues on Precedex infusion, with a RASS -1. No active signs of bleeding, no hematuria noted. Subcu heparin DVT prophylaxis instituted. 12/16: T-max 100.3. Patient awake and responsive on Precedex infusion. Discussion with family planned for tracheostomy and PEG placement, due to slow vent weaning. Patient continues on CPAP trials. Creatinine slightly more elevated today IV infusion increased to 100 cc/hr. 12/17: T-max 99.8. Patient tolerated CPAP trials for greater than 10 hours yesterday, on Precedex infusion. During the night the patient was more agitated , propofol infusion initiated, Precedex infusion discontinued. Plans for tracheostomy and PEG placement today. Patient continues on IV fluid 100 cc/ hour BMP pending. 12/18: Afebrile. No acute events overnight patient is postop day 1 status post tracheostomy and PEG placement tube feeds reinitiated no residuals noted will advance to goal rate today. Patient's creatinine has improved IV fluids discontinued at this time. CPAP trials to begin today. Subcu heparin resumed. 12/19: Afebrile. Patient currently on Precedex 0.8 mcgs/kg/hr. Patient is awake nodding yes and no to questions slightly anxious. The patient denies any pain. Xanax 1 mg every 6 hours as needed order. Sodium level noted to be trending slightly upward free water flushes 200 cc/8 hours initiated. 12/20: Continues on dexmedetomidine at 1.0 mcg/kg/hr. On CPAP 12 hours yesterday. Tolerated well currently on Zoloft. Tube feeds at goal. Positive BM. Awake and follows commands 4 SUBJECTIVE: 12/21: Continues on dexmedetomidine drip. Remains on CPAP. Will attempt to start quetiapine today 25 mg daily and schedule oxycodone 5 mg every 6 hours and attempt to wean off dexmedetomidine drip. Tolerating tube feeds at goal. Awake and follows commands. 12/22: No events over the night. T-max of 99.1. Patient in sinus rhythm. I/O 1764/675. Patient is awake, tolerating higher pressure support CPAP. 12/23: Still with some bleeding around the PEG tube site. Hemoglobin lower at this morning 1 unit PRBC was ordered. T-max of 99.7 over the night, 1200 mL's of urine output. Scheduled to undergo EGD today. On pantoprazole drip. 12/24: No events over the night. Bleeding around the PEG site stopped. Patient remains on pantoprazole drip and dexmedetomidine infusion. She is tolerating CPAP. T-max of 100.5 yesterday morning. Morning chest x-ray reviewed, cardiomegaly, trach is in place, still with bibasilar opacities not significantly changed. 12/25: Patient tolerated trach collar yesterday for approximately 7 hours. She was placed back on full support last night. Currently patient is back on trach collar, doing well. She is awake, on Precedex at 0.3. Afebrile over the night with a T-max of 99.2. She responded well to diuretics, with a urine output of 2.8 L over the last 24 hours. Objective Vital Signs Date Time Temp Pulse Resp B/P (MAP) Pulse Ox O2 Delivery O2 Flow Rate FiO2 12/25/17 08:25 96 T-piece 40 12/25/17 06:00 55 12/25/17 05:12 16 12/25/17 04:00 99.1 121/48 (72) 12/24/17 11:15 10.00 Intake and Output 12/25/17 12/25/17 12/26/17 08:00 16:00 00:00 Intake Total 485 ml Output Total 1400 ml Balance -915 ml Result Diagram: 12/25/17 0437 12/25/17 0437 Imaging Last 24 hours Impressions Chest X-Ray 12/24/17 06 Signed Impressions: Service Date/Time: December 02:46 - CONCLUSION: No significant change. Hari Stewart MD Last Impressions Chest X-Ray 12/22/17 0600 Signed Impressions: Service Date/Time: Friday, December 22, 2017 03:35 - CONCLUSION: Bilateral low lobe infiltrates and pleural effusions are unchanged. Cardiac silhouette is widened Edgard Jessica MD Abdomen/Pelvis CT 12/22/17 0000 Signed Impressions: Service Date/Time: Friday, December 22, 2017 12:13 - CONCLUSION: 1. There is diffuse prominent body anasarca 2. Small amount of free fluid deep in the pelvis with edema throughout the mesenteric fat. This is most likely related to patient's anasarca. 3. Bilateral pleural effusions. 4. Left ovarian cyst measuring 1.6 cm. 5. Gastrostomy tube in the stomach. Chinmay Espinoza MD Liver Ultrasound 12/11/17 0000 Signed Impressions: Service Date/Time: Monday, December 11, 2017 13:59 - CONCLUSION: 1. Liver is prominent with no focal mass lesions or fatty infiltration. 2. Trace fluid about the liver. 3. Bilateral pleural effusions. Mahendra Poe MD Chest CT 12/04/17 1154 Signed Impressions: Service Date/Time: Monday, December 04, 2017 12:43 - CONCLUSION: Probable mild congestive failure with trace pleural effusions. No evidence for mass. Jean-Paul Hoffmann MD FACR Head CT 12/04/17 1126 Signed Impressions: Service Date/Time: Monday, December 04, 2017 12:37 - CONCLUSION: Stable brain appearance. No acute intracranial findings Anam Rojas MD Neck Magnetic Resonance Angiography 12/04/17 0000 Signed Impressions: Service Date/Time: Monday, December 04, 2017 20:36 - CONCLUSION: 1. Mild plaque at the right carotid bulb/proximal internal carotid artery without significant stenosis. 2. Significant opacification of the aortic arch and origins of the great vessels is not present. These areas cannot be evaluated. Anam Donis MD Head Magnetic Resonance Angiography 12/04/17 0000 Signed Impressions: Service Date/Time: Monday, December 04, 2017 20:36 - CONCLUSION: No acute disease. Anam Donis MD Brain MRI 12/04/17 0000 Signed Impressions: Service Date/Time: Monday, December 04, 2017 20:36 - CONCLUSION: 1. Small punctate areas of signal abnormality in the posterior left temporal lobe which may represent small focal areas of acute infarction. 2. Several areas of signal abnormality in the basal ganglia and left posterior temporal lobes likely from prior hemorrhage. 3. Demyelination within the cerebral and pontine white matter likely from small vessel ischemic change. Anam Donis MD Last Impressions Chest X-Ray 12/20/17 0600 Signed Impressions: Service Date/Time: Wednesday, December 20, 2017 02:42 - CONCLUSION: Interval removal of central line. Aeration is grossly stable. Anam Rojas MD Liver Ultrasound 12/11/17 0000 Signed Impressions: Service Date/Time: Monday, December 11, 2017 13:59 - CONCLUSION: 1. Liver is prominent with no focal mass lesions or fatty infiltration. 2. Trace fluid about the liver. 3. Bilateral pleural effusions. Mahendra Poe MD Chest CT 12/04/17 1154 Signed Impressions: Service Date/Time: Monday, December 04, 2017 12:43 - CONCLUSION: Probable mild congestive failure with trace pleural effusions. No evidence for mass. Jean-Paul Hoffmann MD FACR Head CT 12/04/17 1126 Signed Impressions: Service Date/Time: Monday, December 04, 2017 12:37 - CONCLUSION: Stable brain appearance. No acute intracranial findings Anam Rojas MD Neck Magnetic Resonance Angiography 12/04/17 0000 Signed Impressions: Service Date/Time: Monday, December 04, 2017 20:36 - CONCLUSION: 1. Mild plaque at the right carotid bulb/proximal internal carotid artery without significant stenosis. 2. Significant opacification of the aortic arch and origins of the great vessels is not present. These areas cannot be evaluated. Anam Donis MD Head Magnetic Resonance Angiography 12/04/17 0000 Signed Impressions: Service Date/Time: Monday, December 04, 2017 20:36 - CONCLUSION: No acute disease. Anam Donis MD Brain MRI 12/04/17 0000 Signed Impressions: Service Date/Time: Monday, December 04, 2017 20:36 - CONCLUSION: 1. Small punctate areas of signal abnormality in the posterior left temporal lobe which may represent small focal areas of acute infarction. 2. Several areas of signal abnormality in the basal ganglia and left posterior temporal lobes likely from prior hemorrhage. 3. Demyelination within the cerebral and pontine white matter likely from small vessel ischemic change. Anam Donis MD Procedures 5/3 Pending PEG 5/3 Pending Trach Objective Remarks General - elderly lady, trached, awake, ill-appearing HEENT - pupils equal, reactive, sclerae anicteric, neck supple, no JVD, 8.0 Shiley tracheostomy CV - regular S1 and S2, no murmurs Chest - scattered coarse breath sounds b/l, no wheezes Abdomen - soft, distended, non-tender, BS present, PEG tube in place without signs of bleeding Extremities - warm, 2+ edema over lower extremities, + peripheral pulses Neuro - awake, follows some commands, moves all extremities but she remains weak A/P Problem List: (1) Acute metabolic encephalopathy ICD Code: G93.41 - Metabolic encephalopathy Status: Acute (2) Paroxysmal atrial fibrillation with rapid ventricular response ICD Code: I48.0 - Paroxysmal atrial fibrillation Status: Acute (3) Lactic acidemia ICD Code: E87.2 - Acidosis Status: Acute (4) Cardiomyopathy ICD Code: I42.9 - Cardiomyopathy, unspecified Status: Chronic (5) Non-ST elevation OR (NSTEMI) ICD Code: I21.4 - Non-ST elevation (NSTEMI) myocardial infarction Status: Acute (6) Severe sepsis ICD Code: A41.9 - Sepsis, unspecified organism; R65.20 - Severe sepsis without septic shock Status: Acute (7) Altered mental status ICD Code: R41.82 - Altered mental status, unspecified Status: Acute (8) Hypertension ICD Code: I10 - Hypertension Status: Chronic (9) LAI (acute kidney injury) ICD Code: N17.9 - Acute kidney failure, unspecified Status: Acute (10) Metabolic acidosis ICD Code: E87.2 - Acidosis Status: Acute Assessment and Plan Neuro/Psych: Acute encephalopathy - improved 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 fib with RVR -currently in sinus rhythm Nonischemic cardiomyopathy, with reduced EF History of diastolic heart failure 03/30 NSTEMI Moderate MR History of essential hypertension Hold amiodarone 200 mg p.o. twice daily today due to bradycardia. Previously on metoprolol tartrate 25 mg every 6 hours Echocardiogram revealed EF 55%. Bilateral atrial enlargement. Pulmonary arterial pressure 33 mmHg Previous echocardiogram 2013 revealed EF 55-60%. Grade 1 diastolic dysfunction. Continue atorvastatin 10 mg at night Resp: Vent dependent respiratory failure -status post tracheostomy 12/[address] Flor Continue trach collar as long as tolerated Please back on vent but maintained on CPAP as long as patient tolerates over the night Vent bundle Albuterol/ipratropium aerosols every 6 hours with albuterol aerosols every 2 hours as needed dyspnea GI: Status post PEG tube placement -Dr. Mendes 12/17 Hypoalbuminemia Acute blood loss anemia Hemorrhage around the PEG tube site Tube feeds restarted per GI Restart aspirin today Will start Eliquis tomorrow if okay with GI On pantoprazole infusion Tube feeds - Jevity 1.5 goal 50 cc an hour per nutrition recommendations Famotidine 10 mg twice daily for GI prophylaxis Docusate sodium/senna 1 tablet twice daily for bowel regimen : History of hematuria Abca catheter has been placed for accurate I's and O's in a critically ill patient Endo: Sliding scale insulin with NovoLog with Accu-Cheks every 6 hours to maintain euglycemia can be discontinued today. No sliding scale 12/08 Borderline hypoglycemic on morning labs, glucose of 68. Start D10 at 30 until able to restart tube feeds Renal: Creatinine currently within normal limits Monitor urine output Accurate I's and O's Heme: Normocytic anemia Received 1 unit PRBC Apixaban on hold ID: Off all antibiotics. Evaluated by Dr. Amaro. Believe this was aspiration pneumonia. LP/cultures also see no growth. Blood cultures 12/12 revealed staph epi likely contaminant. All remainder microbiology has no growth Had one episode of fever on 12/23 -cultures sent MSK: PT evaluate and treat FEN: Replace electrolytes as clinically indicated Access -Utilize peripheral IV. -Right subclavian central line removed Prophylaxis -GI -famotidine -DVT -SCD Level 2 follow-up No family present at bedside Problem Qualifiers (1) Altered mental status: (2) Hypertension: Qualified Codes: I10 - Essential (primary) hypertension Kiel Hernandez MD December 25, 2017 09:41
[2017-12-25] MEDS ORDERED: FUROSEMIDE 40 MG/4 ML VIAL IV PUSH ONE (10:00)
[2017-12-25] MEDS: SODIUM CHLORIDE FLUSH BID IV FLUSH SCH ×2 (10:12→20:56)
[2017-12-25] MEDS: DOCUSATE SODIUM 50 MG/SENNA 8.6 MG TAB PO SCH ×2 (10:12→20:56)
[2017-12-25] MEDS: CHLORHEXIDINE 0.12% (ORAL KIT) 15 ML CUP MT SCH ×2 (10:13→20:56)
[2017-12-25] MEDS: QUEtiapine FUMARATE 25 MG TAB PO SCH ×2 (10:13→20:56)
[2017-12-25] MEDS: NYSTATIN 100,000 U/GM PWD 15 GM BTL TOPICAL SCH ×2 (10:13→20:57)
[2017-12-25] MEDS: PANTOPRAZOLE SODIUM 40 MG VIAL IV PUSH SCH (17:54)
[2017-12-25] MEDS: RESP: ALBUTEROL 2.5 MG/3 ML NEB (PRN) NEB (20:51)
[2017-12-26] VITALS (30 sets, daily range): BP systolic 127–161; BP diastolic 59–104; PULSE 55–96; RESP 21–80; TEMP 98.3–99.6; O2SAT 90–100
[2017-12-26] MEDS: FREE WATER G-TUBE SCH ×3 (00:39→17:46)
[2017-12-26] MEDS: CHLORHEXIDINE GLUCONATE 2 % 1 PACK (2 CLOTHS) TOP SCH (00:40)
[2017-12-26] MEDS: PANTOPRAZOLE SODIUM 40 MG VIAL IV PUSH SCH ×2 (00:40→12:17)
[2017-12-26] MEDS: ARTIFICIAL TEARS OPTH SOLN 15 ML BTL EACH EYE SCH ×3 (04:21→23:54)
[2017-12-26] MEDS: oxyCODONE HCL ORAL CONC 5 MG/0.25 ML SYRINGE PO SCH ×4 (04:21→23:55)
[2017-12-26 04:55] LABS: BASOPHIL % 0.6 % (0.0-2.0); EOSINOPHIL # 0.2 TH/MM3 (0-0.4); EOSINOPHIL % 3.9 % (0.0-4.0); HEMATOCRIT 24.7 % (35.0-46.0); HEMOGLOBIN 8.2 GM/DL (11.6-15.3); LYMPH % 19.7 % (9.0-44.0); LYMPHOCYTE # 1.2 TH/MM3 (1.0-4.8); MEAN CORPUSCULAR HEMOGLOBIN 27.3 PG (27.0-34.0); MEAN CORPUSCULAR HGB CONC 33.2 % (32.0-36.0); MEAN PLATELET VOLUME 8.7 FL (7.0-11.0); MONOCYTE # 0.6 TH/MM3 (0-0.9); NEUT % 65.8 % (16.0-70.0); PLATELET COUNT 262 TH/MM3 (150-450); RED BLOOD COUNT 3.02 MIL/MM3 (4.00-5.30); RED CELL DISTRIBUTION WIDTH 13.2 % (11.6-17.2); WHITE BLOOD COUNT 6.1 TH/MM3 (4.0-11.0)
[2017-12-26 05:14] LABS: ALBUMIN 2.2 GM/DL (3.4-5.0); AST (GOT) 16 U/L (15-37); BICARBONATE 28.5 MEQ/L (21.0-32.0); BLOOD UREA NITROGEN 28 MG/DL (7-18); CALCIUM 8.8 MG/DL (8.5-10.1); CHLORIDE 104 MEQ/L (98-107); GLOMERULAR FILTRATION RATE 44 ML/MIN (>89); GLUCOSE,RANDOM 99 MG/DL (74-106); MAGNESIUM 1.8 MG/DL (1.5-2.5); SODIUM (NA) 143 MEQ/L (136-145)
[2017-12-26 05:17] LABS: ALKALINE PHOSPHATASE 138 U/L (45-117); ALT (GPT) 24 U/L (10-53); PHOSPHORUS 4.3 MG/DL (2.5-4.9); TOTAL BILIRUBIN ADULT 0.3 MG/DL (0.2-1.0); TOTAL PROTEIN 5.8 GM/DL (6.4-8.2)
[2017-12-26] MEDS: DEXMEDETOMIDINE INJ 1,000 MCG in SODIUM CHLOR 0.9% 250 ML INJ 250 ML IV PRN ×2 (05:23→23:54)
[2017-12-26] MEDS: QUEtiapine FUMARATE 25 MG TAB PO SCH ×2 (09:12→20:10)
[2017-12-26] MEDS: ASPIRIN 81 MG CHEW TAB NG SCH (09:12)
[2017-12-26] MEDS: DOCUSATE SODIUM 50 MG/SENNA 8.6 MG TAB PO SCH ×2 (09:12→20:10)
[2017-12-26] MEDS: CHLORHEXIDINE 0.12% (ORAL KIT) 15 ML CUP MT SCH ×2 (09:13→20:10)
[2017-12-26] MEDS: SODIUM CHLORIDE FLUSH BID IV FLUSH SCH ×2 (09:13→20:10)
[2017-12-26] MEDS: NYSTATIN 100,000 U/GM PWD 15 GM BTL TOPICAL SCH ×2 (09:14→20:10)
--- NOTE | 2017-12-26 10:50 | HHI.CCPN ---
Subjective Remarks/Hospital Course 77-year-old female who is apparently very active at baseline, with past medical history significant for hypertension and previous TIA, tobacco abuse. She was seen last normal yesterday night at 7 PM. Her friends checked on her today morning and was found down, disoriented, staring off to the left, not answering questions. I am not able to get much further history from her. She has a fever of 101 in the ER, initially and then spiked to 103.7. ER workup included a CT scan of head which was negative for acute findings. Lab work showed a white count of 15.9 with left shift, lactic acid was 3.4, troponin was elevated at 8.7. Cardiology Dr. Meza was contacted aspirin was given patient was recommended to be started on IV heparin but was held for LP. Lumbar puncture was unremarkable nevertheless patient was started on meningitic doses of vancomycin and Rocephin. I have added ampicillin 2 g IV every 4 hours, and acyclovir 680 mg IV every 8 hours. I evaluated the patient in the ICU. Patient is severely altered tachypneic in moderate distress. Patient is aphasic with left gaze preference diminished movements of the right upper and lower extremity. A bedside echo shows reduced EF approximately 20-25%, global hypokinesis. Patient has no history of cardiomyopathy to my knowledge. At this time his stroke cannot be ruled out. Stat MRI MRA had been ordered. Due to altered mentation tachypnea and lack of airway protection patient was intubated and placed on mechanical ventilation 12/05: Remains intubated sedated. MRI brain showing small punctate areas of signal abnormality in the posterior left temporal lobe-possible small focal areas of acute infarction. Also several areas of signal abnormality in the basal ganglia and left posterior temporal lobes likely from prior hemorrhage. Demyelination within the cerebral and pontine white matter likely from small vessel ischemic change. Neurology consult. Stat EEG is pending. Fever is down trending afebrile now, developed atrial fibrillation with RVR started on amiodarone infusion. I have resumed heparin infusion. 12/06: Afebrile. Last evening the patient had decreased mat requiring additional pressor support vasopressin added to medication regimen and diminished urinary output. Patient was noted to have significant elevation in creatinine this a.m. Patient remains on vasopressin and norepinephrine vasopressor support. Patient continues on amiodarone infusion, plan to transition to p.o.. Sedation vacation initiated yesterday for EEG, per report patient following commands. Sedation vacation in progress at this time. Noticed slight elevation in WBC count, repeat urine culture pending. 12/07: Remains intubated sedated. Currently on IV heparin infusion, amiodarone infusion and vasopressin gtt to maintain MAP >65. Had developed acute kidney injury yesterday creatinine had bumped to 2. Urine output 550 mL in the last 24 hours. CMP today is pending. On sedation hold patient opens eyes weakly moves extremities do not follow commands. Remains severely encephalopathy 12/08: No events over the night. Patient remains encephalopathic, opens eyes to voice stimuli, but does not consistently follow commands. She remains on amiodarone and heparin infusions, no pressors. T-max of 99.6. I/O 2250/960, more than 11 L positive since admission if correctly documented. 12/09: Few episodes of A. fib with RVR over the night. T-max of 99.1. Patient remains intubated and sedated. No family present at bedside. 12/10: No events over the night. Patient is more awake this a.m. 30 with propofol. Good response to diuresis, T-max 100.1. In telemetry, patient currently in sinus rhythm and she continues to be on amiodarone infusion. 12/11: No events over the night. T-max of 100.2. On 35 off propofol this morning, arousable, following some commands. Diuresing well with Lasix. She remains in sinus rhythm. 12/12: Patient remains intubated and sedated, on propofol at 35. Yesterday patient tolerated CPAP trials for a little less than 2 hours. Afebrile, with a T-max of 99.8. I/O 2069/2099. Patient is arousable, tracking, following some commands. 12/13: No events over the night. T-max of 99.9. Patient is awake, on some sedation, following some commands. Urine dark with some sediment. 12/14: Patient developed worsening hematuria over the night therefore I stopped heparin drip this morning. Yesterday she tolerated CPAP for approximately 2 hours then she became tachypneic. Sedation was changed to Precedex and propofol was stopped, patient is awake and calm following commands. Still significant amount of sputum secretions. T-max of 99.1. I/O 2485/1125. 12/15: Tmax 100.2. The patient continues on Precedex infusion, with a RASS -1. No active signs of bleeding, no hematuria noted. Subcu heparin DVT prophylaxis instituted. 12/16: T-max 100.3. Patient awake and responsive on Precedex infusion. Discussion with family planned for tracheostomy and PEG placement, due to slow vent weaning. Patient continues on CPAP trials. Creatinine slightly more elevated today IV infusion increased to 100 cc/hr. 12/17: T-max 99.8. Patient tolerated CPAP trials for greater than 10 hours yesterday, on Precedex infusion. During the night the patient was more agitated , propofol infusion initiated, Precedex infusion discontinued. Plans for tracheostomy and PEG placement today. Patient continues on IV fluid 100 cc/ hour BMP pending. 12/18: Afebrile. No acute events overnight patient is postop day 1 status post tracheostomy and PEG placement tube feeds reinitiated no residuals noted will advance to goal rate today. Patient's creatinine has improved IV fluids discontinued at this time. CPAP trials to begin today. Subcu heparin resumed. 12/19: Afebrile. Patient currently on Precedex 0.8 mcgs/kg/hr. Patient is awake nodding yes and no to questions slightly anxious. The patient denies any pain. Xanax 1 mg every 6 hours as needed order. Sodium level noted to be trending slightly upward free water flushes 200 cc/8 hours initiated. 12/20: Continues on dexmedetomidine at 1.0 mcg/kg/hr. On CPAP 12 hours yesterday. Tolerated well currently on Zoloft. Tube feeds at goal. Positive BM. Awake and follows commands 4 SUBJECTIVE: 12/21: Continues on dexmedetomidine drip. Remains on CPAP. Will attempt to start quetiapine today 25 mg daily and schedule oxycodone 5 mg every 6 hours and attempt to wean off dexmedetomidine drip. Tolerating tube feeds at goal. Awake and follows commands. 12/22: No events over the night. T-max of 99.1. Patient in sinus rhythm. I/O 1764/675. Patient is awake, tolerating higher pressure support CPAP. 12/23: Still with some bleeding around the PEG tube site. Hemoglobin lower at this morning 1 unit PRBC was ordered. T-max of 99.7 over the night, 1200 mL's of urine output. Scheduled to undergo EGD today. On pantoprazole drip. 12/24: No events over the night. Bleeding around the PEG site stopped. Patient remains on pantoprazole drip and dexmedetomidine infusion. She is tolerating CPAP. T-max of 100.5 yesterday morning. Morning chest x-ray reviewed, cardiomegaly, trach is in place, still with bibasilar opacities not significantly changed. 12/25: Patient tolerated trach collar yesterday for approximately 7 hours. She was placed back on full support last night. Currently patient is back on trach collar, doing well. She is awake, on Precedex at 0.3. Afebrile over the night with a T-max of 99.2. She responded well to diuretics, with a urine output of 2.8 L over the last 24 hours. 12/26: No events over the night. T-max of 99.6. Patient remains on Precedex infusion. Responded well to diuretics, urine output more than 3 L over the last 24 hours. Patient yesterday tolerated T piece for approximately 6-7 hours and then she required full support. Objective Vital Signs Date Time Temp Pulse Resp B/P (MAP) Pulse Ox O2 Delivery O2 Flow Rate FiO2 12/26/17 08:34 100 40 12/26/17 06:00 64 12/26/17 04:30 24 12/26/17 04:01 99.6 146/104 (118) 12/25/17 08:25 T-piece 12/24/17 11:15 10.00 Intake and Output 12/26/17 12/26/17 12/27/17 08:00 16:00 00:00 Intake Total 813 ml Output Total 750 ml Balance 63 ml Result Diagram: 12/26/17 0406 12/26/17 0406 Other Results Blood cultures 12/24 - CoNS X1, NGTD X 1 Microbiology Date/Time Source Procedure Growth Status 12/24/17 07:00 Sputum Endotracheal Gram Stain - Final Complete 12/24/17 07:00 Sputum Endotracheal Sputum Culture - Final HEAVY GROWTH NORMAL RESPIRATORY GURMEET Complete Imaging Last 24 hours Impressions Chest X-Ray 12/24/17 0600 Signed Impressions: Service Date/Time: December 02:46 - CONCLUSION: No significant change. Hari Stewart MD Last Impressions Chest X-Ray 12/22/17 0600 Signed Impressions: Service Date/Time: Friday, December 22, 2017 03:35 - CONCLUSION: Bilateral low lobe infiltrates and pleural effusions are unchanged. Cardiac silhouette is widened Edgard Jessica MD Abdomen/Pelvis CT 12/22/17 0000 Signed Impressions: Service Date/Time: Friday, December 22, 2017 12:13 - CONCLUSION: 1. There is diffuse prominent body anasarca 2. Small amount of free fluid deep in the pelvis with edema throughout the mesenteric fat. This is most likely related to patient's anasarca. 3. Bilateral pleural effusions. 4. Left ovarian cyst measuring 1.6 cm. 5. Gastrostomy tube in the stomach. Chinmay Espinoza MD Liver Ultrasound 12/11/17 0000 Signed Impressions: Service Date/Time: Monday, December 11, 2017 13:59 - CONCLUSION: 1. Liver is prominent with no focal mass lesions or fatty infiltration. 2. Trace fluid about the liver. 3. Bilateral pleural effusions. Mahendra Poe MD Chest CT 12/04/17 1154 Signed Impressions: Service Date/Time: Monday, December 04, 2017 12:43 - CONCLUSION: Probable mild congestive failure with trace pleural effusions. No evidence for mass. Jean-Paul Hoffmann MD FACR Head CT 12/04/17 1126 Signed Impressions: Service Date/Time: Monday, December 04, 2017 12:37 - CONCLUSION: Stable brain appearance. No acute intracranial findings Anam Rojas MD Neck Magnetic Resonance Angiography 12/04/17 0000 Signed Impressions: Service Date/Time: Monday, December 04, 2017 20:36 - CONCLUSION: 1. Mild plaque at the right carotid bulb/proximal internal carotid artery without significant stenosis. 2. Significant opacification of the aortic arch and origins of the great vessels is not present. These areas cannot be evaluated. Anam Donis MD Head Magnetic Resonance Angiography 12/04/17 0000 Signed Impressions: Service Date/Time: Monday, December 04, 2017 20:36 - CONCLUSION: No acute disease. Anam Donis MD Brain MRI 12/04/17 0000 Signed Impressions: Service Date/Time: Monday, December 04, 2017 20:36 - CONCLUSION: 1. Small punctate areas of signal abnormality in the posterior left temporal lobe which may represent small focal areas of acute infarction. 2. Several areas of signal abnormality in the basal ganglia and left posterior temporal lobes likely from prior hemorrhage. 3. Demyelination within the cerebral and pontine white matter likely from small vessel ischemic change. Anam Donis MD Last Impressions Chest X-Ray 12/20/17 0600 Signed Impressions: Service Date/Time: Wednesday, December 20, 2017 02:42 - CONCLUSION: Interval removal of central line. Aeration is grossly stable. Anam Rojas MD Liver Ultrasound 12/11/17 0000 Signed Impressions: Service Date/Time: Monday, December 11, 2017 13:59 - CONCLUSION: 1. Liver is prominent with no focal mass lesions or fatty infiltration. 2. Trace fluid about the liver. 3. Bilateral pleural effusions. Mahendra Poe MD Chest CT 12/04/17 1154 Signed Impressions: Service Date/Time: Monday, December 04, 2017 12:43 - CONCLUSION: Probable mild congestive failure with trace pleural effusions. No evidence for mass. Jean-Paul Hoffmann MD FACR Head CT 12/04/17 1126 Signed Impressions: Service Date/Time: Monday, December 04, 2017 12:37 - CONCLUSION: Stable brain appearance. No acute intracranial findings Anam Rojas MD Neck Magnetic Resonance Angiography 12/04/17 0000 Signed Impressions: Service Date/Time: Monday, December 04, 2017 20:36 - CONCLUSION: 1. Mild plaque at the right carotid bulb/proximal internal carotid artery without significant stenosis. 2. Significant opacification of the aortic arch and origins of the great vessels is not present. These areas cannot be evaluated. Anam Donis MD Head Magnetic Resonance Angiography 12/04/17 0000 Signed Impressions: Service Date/Time: Monday, December 04, 2017 20:36 - CONCLUSION: No acute disease. Anam Donis MD Brain MRI 12/04/17 0000 Signed Impressions: Service Date/Time: Monday, December 04, 2017 20:36 - CONCLUSION: 1. Small punctate areas of signal abnormality in the posterior left temporal lobe which may represent small focal areas of acute infarction. 2. Several areas of signal abnormality in the basal ganglia and left posterior temporal lobes likely from prior hemorrhage. 3. Demyelination within the cerebral and pontine white matter likely from small vessel ischemic change. Anam Donis MD Procedures 5/3 Pending PEG 5/3 Pending Trach Objective Remarks General - elderly lady, trached, awake, ill-appearing HEENT - pupils are equal, reactive, sclerae are anicteric, neck is supple, no neck vein distention, 8.0 Shiley tracheostomy CV - regular heart sounds, no murmurs Chest - scattered coarse breath sounds b/l, no wheezes Abdomen - soft, nontender, distended, BS present, PEG tube in place without signs of bleeding Extremities - warm and well-perfused, 2+ edema over lower extremities, + peripheral pulses Neuro - awake, follows some commands, moves all extremities but she remains weak A/P Problem List: (1) Acute metabolic encephalopathy ICD Code: G93.41 - Metabolic encephalopathy Status: Acute (2) Paroxysmal atrial fibrillation with rapid ventricular response ICD Code: I48.0 - Paroxysmal atrial fibrillation Status: Acute (3) Lactic acidemia ICD Code: E87.2 - Acidosis Status: Acute (4) Cardiomyopathy ICD Code: I42.9 - Cardiomyopathy, unspecified Status: Chronic (5) Non-ST elevation MD (NSTEMI) ICD Code: I21.4 - Non-ST elevation (NSTEMI) myocardial infarction Status: Acute (6) Severe sepsis ICD Code: A41.9 - Sepsis, unspecified organism; R65.20 - Severe sepsis without septic shock Status: Acute (7) Altered mental status ICD Code: R41.82 - Altered mental status, unspecified Status: Acute (8) Hypertension ICD Code: I10 - Hypertension Status: Chronic (9) LAI (acute kidney injury) ICD Code: N17.9 - Acute kidney failure, unspecified Status: Acute (10) Metabolic acidosis ICD Code: E87.2 - Acidosis Status: Acute Assessment and Plan Neuro/Psych: Acute encephalopathy - improved 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 fib with RVR -currently in sinus rhythm Nonischemic cardiomyopathy, with reduced EF History of diastolic heart failure 03/30 NSTEMI Moderate MR History of essential hypertension Hold amiodarone 200 mg p.o. twice daily today due to bradycardia. Previously on metoprolol tartrate 25 mg every 6 hours Echocardiogram revealed EF 55%. Bilateral atrial enlargement. Pulmonary arterial pressure 33 mmHg Previous echocardiogram 2013 revealed EF 55-60%. Grade 1 diastolic dysfunction. Continue atorvastatin 10 mg at night Resp: Vent dependent respiratory failure -status post tracheostomy 12/[address] Flor Placed on trach collar/T piece as tolerated during the daytime Place back on vent but maintain on CPAP as long as patient tolerates over the night Vent bundle Albuterol/ipratropium aerosols every 6 hours with albuterol aerosols every 2 hours as needed dyspnea GI: Status post PEG tube placement -Dr. Mendes 12/17 Hypoalbuminemia Acute blood loss anemia Hemorrhage around the PEG tube site Tube feeds restarted per GI Aspirin restarted yesterday Start Eliquis today On pantoprazole twice daily Tube feeds - Jevity 1.5 goal 50 cc an hour per nutrition recommendations Famotidine 10 mg twice daily for GI prophylaxis Docusate sodium/senna 1 tablet twice daily for bowel regimen : History of hematuria Baca catheter has been placed for accurate I's and O's in a critically ill patient Endo: Sliding scale insulin with NovoLog with Accu-Cheks every 6 hours to maintain euglycemia can be discontinued today. No sliding scale 12/08 Renal: Creatinine currently within normal limits Monitor urine output Accurate I's and O's Heme: Normocytic anemia Received 1 unit PRBC Restart apixaban today ID: CoNS bacteremia vs contaminant Repeat blood cultures sent this morning. We will hold antibiotics for now since the shunt is afebrile without leukocytosis Off all antibiotics. Evaluated by Dr. Amaro. Believe this was aspiration pneumonia. LP/cultures also see no growth. Blood cultures 12/12 revealed staph epi likely contaminant. All remainder microbiology has no growth Had one episode of fever on 12/23 -cultures sent MSK: PT evaluate and treat FEN: Replace electrolytes as clinically indicated Access -Utilize peripheral IV. -Right subclavian central line removed Prophylaxis -GI -famotidine -DVT -SCD Level 2 follow-up No family present at bedside Problem Qualifiers (1) Altered mental status: (2) Hypertension: Qualified Codes: I10 - Essential (primary) hypertension Kiel Hernandez MD December 26, 2017 10:50
[2017-12-26] MEDS: ALPRAZolam 1 MG TAB PO PRN ×2 (13:01→20:10)
[2017-12-27] VITALS (17 sets, daily range): BP systolic 123–170; BP diastolic 58–72; PULSE 52–59; RESP 12–24; TEMP 98.1–99.1; O2SAT 97–100
[2017-12-27] MEDS: FREE WATER G-TUBE SCH ×3 (00:04→16:34)
[2017-12-27] MEDS: PANTOPRAZOLE SODIUM 40 MG VIAL IV PUSH SCH ×2 (00:05→12:06)
[2017-12-27] MEDS: CHLORHEXIDINE GLUCONATE 2 % 1 PACK (2 CLOTHS) TOP SCH (04:00)
[2017-12-27 04:23] LABS: AUTOMATED NEUTROPHIL # 2.9 TH/MM3 (1.8-7.7); BASOPHIL # 0.1 TH/MM3 (0-0.2); BASOPHIL % 1.3 % (0.0-2.0); EOSINOPHIL # 0.2 TH/MM3 (0-0.4); EOSINOPHIL % 4.2 % (0.0-4.0); HEMATOCRIT 25.3 % (35.0-46.0); HEMOGLOBIN 8.5 GM/DL (11.6-15.3); LYMPH % 26.2 % (9.0-44.0); LYMPHOCYTE # 1.3 TH/MM3 (1.0-4.8); MEAN CELL VOLUME 81.1 FL (80.0-100.0); MEAN CORPUSCULAR HEMOGLOBIN 27.3 PG (27.0-34.0); MEAN CORPUSCULAR HGB CONC 33.7 % (32.0-36.0); MEAN PLATELET VOLUME 8.7 FL (7.0-11.0); MONO % 8.6 % (0.0-8.0); MONOCYTE # 0.4 TH/MM3 (0-0.9); NEUT % 59.7 % (16.0-70.0); PLATELET COUNT 246 TH/MM3 (150-450); RED BLOOD COUNT 3.12 MIL/MM3 (4.00-5.30); RED CELL DISTRIBUTION WIDTH 13.2 % (11.6-17.2); WHITE BLOOD COUNT 4.8 TH/MM3 (4.0-11.0)
--- NOTE | 2017-12-27 04:30 | RADRPT ---
EXAM DATE/TIME: 12/27/2017 04:11 [facility] COMPARISON: CHEST SINGLE AP, December 24, 2017, 2:46. INDICATIONS : Shortness of breath, possible pulmonary disease. MEDICAL HISTORY : Hypertension. Stroke. SURGICAL HISTORY : Peg tube ENCOUNTER: Subsequent ACUITY: 2 weeks PAIN SCORE: Non-responsive. LOCATION: Bilateral chest FINDINGS: A single AP semierect view of the chest was obtained and demonstrates a tracheostomy tube in place. H azy opacity remains in the perihilar regions and both lung bases with blunting of the costophrenic an gles. The heart size remains enlarged. Atherosclerotic calcifications are present in the aorta. The b ranjit thorax is intact. CONCLUSION: No significant change. Bilateral effusions with apparent airspace disease in the lung bases. The findings may indicate congestive heart failure. Hari Stewart MD on December 27, 2017 at 4:28 Board Certified Radiologist. This report was verified electronically.
[2017-12-27 04:51] LABS: ALBUMIN 2.4 GM/DL (3.4-5.0); AST (GOT) 14 U/L (15-37); BICARBONATE 29.4 MEQ/L (21.0-32.0); BLOOD UREA NITROGEN 25 MG/DL (7-18); CALCIUM 9.3 MG/DL (8.5-10.1); CHLORIDE 104 MEQ/L (98-107); GLOMERULAR FILTRATION RATE 44 ML/MIN (>89); GLUCOSE,RANDOM 110 MG/DL (74-106); MAGNESIUM 1.7 MG/DL (1.5-2.5); SODIUM (NA) 142 MEQ/L (136-145)
[2017-12-27 04:52] LABS: ALT (GPT) 23 U/L (10-53); PHOSPHORUS 3.5 MG/DL (2.5-4.9)
[2017-12-27 04:54] LABS: ALKALINE PHOSPHATASE 139 U/L (45-117); TOTAL BILIRUBIN ADULT 0.3 MG/DL (0.2-1.0); TOTAL PROTEIN 6.1 GM/DL (6.4-8.2)
[2017-12-27] MEDS: oxyCODONE HCL ORAL CONC 5 MG/0.25 ML SYRINGE PO SCH ×4 (05:23→23:31)
[2017-12-27] MEDS: ARTIFICIAL TEARS OPTH SOLN 15 ML BTL EACH EYE SCH ×3 (05:25→21:47)
[2017-12-27] MEDS: QUEtiapine FUMARATE 25 MG TAB PO SCH ×2 (08:25→20:06)
[2017-12-27] MEDS: NYSTATIN 100,000 U/GM PWD 15 GM BTL TOPICAL SCH ×2 (08:25→20:07)
[2017-12-27] MEDS: CHLORHEXIDINE 0.12% (ORAL KIT) 15 ML CUP MT SCH ×2 (08:25→20:00)
[2017-12-27] MEDS: SODIUM CHLORIDE FLUSH BID IV FLUSH SCH ×2 (08:25→20:06)
[2017-12-27] MEDS: DOCUSATE SODIUM 50 MG/SENNA 8.6 MG TAB PO SCH ×2 (08:25→20:06)
[2017-12-27] MEDS: ASPIRIN 81 MG CHEW TAB NG SCH (08:25)
--- NOTE | 2017-12-27 12:15 | HHI.CCPN ---
Subjective Remarks/Hospital Course 77-year-old female who is apparently very active at baseline, with past medical history significant for hypertension and previous TIA, tobacco abuse. She was seen last normal yesterday night at 7 PM. Her friends checked on her today morning and was found down, disoriented, staring off to the left, not answering questions. I am not able to get much further history from her. She has a fever of 101 in the ER, initially and then spiked to 103.7. ER workup included a CT scan of head which was negative for acute findings. Lab work showed a white count of 15.9 with left shift, lactic acid was 3.4, troponin was elevated at 8.7. Cardiology Dr. Meza was contacted aspirin was given patient was recommended to be started on IV heparin but was held for LP. Lumbar puncture was unremarkable nevertheless patient was started on meningitic doses of vancomycin and Rocephin. I have added ampicillin 2 g IV every 4 hours, and acyclovir 680 mg IV every 8 hours. I evaluated the patient in the ICU. Patient is severely altered tachypneic in moderate distress. Patient is aphasic with left gaze preference diminished movements of the right upper and lower extremity. A bedside echo shows reduced EF approximately 20-25%, global hypokinesis. Patient has no history of cardiomyopathy to my knowledge. At this time his stroke cannot be ruled out. Stat MRI MRA had been ordered. Due to altered mentation tachypnea and lack of airway protection patient was intubated and placed on mechanical ventilation 12/05: Remains intubated sedated. MRI brain showing small punctate areas of signal abnormality in the posterior left temporal lobe-possible small focal areas of acute infarction. Also several areas of signal abnormality in the basal ganglia and left posterior temporal lobes likely from prior hemorrhage. Demyelination within the cerebral and pontine white matter likely from small vessel ischemic change. Neurology consult. Stat EEG is pending. Fever is down trending afebrile now, developed atrial fibrillation with RVR started on amiodarone infusion. I have resumed heparin infusion. 12/06: Afebrile. Last evening the patient had decreased mat requiring additional pressor support vasopressin added to medication regimen and diminished urinary output. Patient was noted to have significant elevation in creatinine this a.m. Patient remains on vasopressin and norepinephrine vasopressor support. Patient continues on amiodarone infusion, plan to transition to p.o.. Sedation vacation initiated yesterday for EEG, per report patient following commands. Sedation vacation in progress at this time. Noticed slight elevation in WBC count, repeat urine culture pending. 12/07: Remains intubated sedated. Currently on IV heparin infusion, amiodarone infusion and vasopressin gtt to maintain MAP >65. Had developed acute kidney injury yesterday creatinine had bumped to 2. Urine output 550 mL in the last 24 hours. CMP today is pending. On sedation hold patient opens eyes weakly moves extremities do not follow commands. Remains severely encephalopathy 12/08: No events over the night. Patient remains encephalopathic, opens eyes to voice stimuli, but does not consistently follow commands. She remains on amiodarone and heparin infusions, no pressors. T-max of 99.6. I/O 2250/960, more than 11 L positive since admission if correctly documented. 12/09: Few episodes of A. fib with RVR over the night. T-max of 99.1. Patient remains intubated and sedated. No family present at bedside. 12/10: No events over the night. Patient is more awake this a.m. 30 with propofol. Good response to diuresis, T-max 100.1. In telemetry, patient currently in sinus rhythm and she continues to be on amiodarone infusion. 12/11: No events over the night. T-max of 100.2. On 35 off propofol this morning, arousable, following some commands. Diuresing well with Lasix. She remains in sinus rhythm. 12/12: Patient remains intubated and sedated, on propofol at 35. Yesterday patient tolerated CPAP trials for a little less than 2 hours. Afebrile, with a T-max of 99.8. I/O 2069/2099. Patient is arousable, tracking, following some commands. 12/13: No events over the night. T-max of 99.9. Patient is awake, on some sedation, following some commands. Urine dark with some sediment. 12/14: Patient developed worsening hematuria over the night therefore I stopped heparin drip this morning. Yesterday she tolerated CPAP for approximately 2 hours then she became tachypneic. Sedation was changed to Precedex and propofol was stopped, patient is awake and calm following commands. Still significant amount of sputum secretions. T-max of 99.1. I/O 2485/1125. 12/15: Tmax 100.2. The patient continues on Precedex infusion, with a RASS -1. No active signs of bleeding, no hematuria noted. Subcu heparin DVT prophylaxis instituted. 12/16: T-max 100.3. Patient awake and responsive on Precedex infusion. Discussion with family planned for tracheostomy and PEG placement, due to slow vent weaning. Patient continues on CPAP trials. Creatinine slightly more elevated today IV infusion increased to 100 cc/hr. 12/17: T-max 99.8. Patient tolerated CPAP trials for greater than 10 hours yesterday, on Precedex infusion. During the night the patient was more agitated , propofol infusion initiated, Precedex infusion discontinued. Plans for tracheostomy and PEG placement today. Patient continues on IV fluid 100 cc/ hour BMP pending. 12/18: Afebrile. No acute events overnight patient is postop day 1 status post tracheostomy and PEG placement tube feeds reinitiated no residuals noted will advance to goal rate today. Patient's creatinine has improved IV fluids discontinued at this time. CPAP trials to begin today. Subcu heparin resumed. 12/19: Afebrile. Patient currently on Precedex 0.8 mcgs/kg/hr. Patient is awake nodding yes and no to questions slightly anxious. The patient denies any pain. Xanax 1 mg every 6 hours as needed order. Sodium level noted to be trending slightly upward free water flushes 200 cc/8 hours initiated. 12/20: Continues on dexmedetomidine at 1.0 mcg/kg/hr. On CPAP 12 hours yesterday. Tolerated well currently on Zoloft. Tube feeds at goal. Positive BM. Awake and follows commands 4 SUBJECTIVE: 12/21: Continues on dexmedetomidine drip. Remains on CPAP. Will attempt to start quetiapine today 25 mg daily and schedule oxycodone 5 mg every 6 hours and attempt to wean off dexmedetomidine drip. Tolerating tube feeds at goal. Awake and follows commands. 12/22: No events over the night. T-max of 99.1. Patient in sinus rhythm. I/O 1764/675. Patient is awake, tolerating higher pressure support CPAP. 12/23: Still with some bleeding around the PEG tube site. Hemoglobin lower at this morning 1 unit PRBC was ordered. T-max of 99.7 over the night, 1200 mL's of urine output. Scheduled to undergo EGD today. On pantoprazole drip. 12/24: No events over the night. Bleeding around the PEG site stopped. Patient remains on pantoprazole drip and dexmedetomidine infusion. She is tolerating CPAP. T-max of 100.5 yesterday morning. Morning chest x-ray reviewed, cardiomegaly, trach is in place, still with bibasilar opacities not significantly changed. 12/25: Patient tolerated trach collar yesterday for approximately 7 hours. She was placed back on full support last night. Currently patient is back on trach collar, doing well. She is awake, on Precedex at 0.3. Afebrile over the night with a T-max of 99.2. She responded well to diuretics, with a urine output of 2.8 L over the last 24 hours. 12/26: No events over the night. T-max of 99.6. Patient remains on Precedex infusion. Responded well to diuretics, urine output more than 3 L over the last 24 hours. Patient yesterday tolerated T piece for approximately 6-7 hours and then she required full support. 12/27: No events over the night. Patient is currently on CPAP 07/21 tolerating well. She is awake, following some commands becomes easily agitated. Objective Vital Signs Date Time Temp Pulse Resp B/P (MAP) Pulse Ox O2 Delivery O2 Flow Rate FiO2 12/27/17 11:16 98 35 12/27/17 10:00 56 12/27/17 08:00 98.9 12 138/62 (87) 12/25/17 08:25 T-piece 12/24/17 11:15 10.00 Intake and Output 12/27/17 12/27/17 12/28/17 08:00 16:00 00:00 Intake Total 749.9 ml Output Total 550 ml Balance 199.9 ml Result Diagram: 12/27/17 0411 12/27/17 041 Imaging Last 24 hours Impressions Chest X-Ray 12/24/17599 Signed Impressions: Service Date/Time: December 02:46 - CONCLUSION: No significant change. Hari Stewart MD Last Impressions Chest X-Ray 5/8/18 0600 Signed Impressions: Service Date/Time: Friday, December 22, 2017 03:35 - CONCLUSION: Bilateral low lobe infiltrates and pleural effusions are unchanged. Cardiac silhouette is widened Edgard Jessica MD Abdomen/Pelvis CT 12/22/17 0000 Signed Impressions: Service Date/Time: Friday, December 22, 2017 12:13 - CONCLUSION: 1. There is diffuse prominent body anasarca 2. Small amount of free fluid deep in the pelvis with edema throughout the mesenteric fat. This is most likely related to patient's anasarca. 3. Bilateral pleural effusions. 4. Left ovarian cyst measuring 1.6 cm. 5. Gastrostomy tube in the stomach. Chinmay Espinoza MD Liver Ultrasound 12/11/17 0000 Signed Impressions: Service Date/Time: Monday, December 11, 2017 13:59 - CONCLUSION: 1. Liver is prominent with no focal mass lesions or fatty infiltration. 2. Trace fluid about the liver. 3. Bilateral pleural effusions. Mahendra Poe MD Chest CT 12/04/17 1154 Signed Impressions: Service Date/Time: Monday, December 04, 2017 12:43 - CONCLUSION: Probable mild congestive failure with trace pleural effusions. No evidence for mass. Jean-Paul Hoffmann MD FACR Head CT 12/04/17 1126 Signed Impressions: Service Date/Time: Monday, December 04, 2017 12:37 - CONCLUSION: Stable brain appearance. No acute intracranial findings Anam Rojas MD Neck Magnetic Resonance Angiography 12/04/17 0000 Signed Impressions: Service Date/Time: Monday, December 04, 2017 20:36 - CONCLUSION: 1. Mild plaque at the right carotid bulb/proximal internal carotid artery without significant stenosis. 2. Significant opacification of the aortic arch and origins of the great vessels is not present. These areas cannot be evaluated. Anam Donis MD Head Magnetic Resonance Angiography 12/04/17 0000 Signed Impressions: Service Date/Time: Monday, December 04, 2017 20:36 - CONCLUSION: No acute disease. Anam Donis MD Brain MRI 12/04/17 0000 Signed Impressions: Service Date/Time: Monday, December 04, 2017 20:36 - CONCLUSION: 1. Small punctate areas of signal abnormality in the posterior left temporal lobe which may represent small focal areas of acute infarction. 2. Several areas of signal abnormality in the basal ganglia and left posterior temporal lobes likely from prior hemorrhage. 3. Demyelination within the cerebral and pontine white matter likely from small vessel ischemic change. Anam Donis MD Last Impressions Chest X-Ray 12/20/17 0600 Signed Impressions: Service Date/Time: Wednesday, December 20, 2017 02:42 - CONCLUSION: Interval removal of central line. Aeration is grossly stable. Anam Rojas MD Liver Ultrasound 12/11/17 0000 Signed Impressions: Service Date/Time: Monday, December 11, 2017 13:59 - CONCLUSION: 1. Liver is prominent with no focal mass lesions or fatty infiltration. 2. Trace fluid about the liver. 3. Bilateral pleural effusions. Mahendra Poe MD Chest CT 12/04/17 1154 Signed Impressions: Service Date/Time: Monday, December 04, 2017 12:43 - CONCLUSION: Probable mild congestive failure with trace pleural effusions. No evidence for mass. Jean-Paul Hoffmann MD FACR Head CT 12/04/17 1126 Signed Impressions: Service Date/Time: Monday, December 04, 2017 12:37 - CONCLUSION: Stable brain appearance. No acute intracranial findings Anam Rojas MD Neck Magnetic Resonance Angiography 12/04/17 0000 Signed Impressions: Service Date/Time: Monday, December 04, 2017 20:36 - CONCLUSION: 1. Mild plaque at the right carotid bulb/proximal internal carotid artery without significant stenosis. 2. Significant opacification of the aortic arch and origins of the great vessels is not present. These areas cannot be evaluated. Anam Donis MD Head Magnetic Resonance Angiography 12/04/17 0000 Signed Impressions: Service Date/Time: Monday, December 04, 2017 20:36 - CONCLUSION: No acute disease. Anam Donis MD Brain MRI 12/04/17 0000 Signed Impressions: Service Date/Time: Monday, December 04, 2017 20:36 - CONCLUSION: 1. Small punctate areas of signal abnormality in the posterior left temporal lobe which may represent small focal areas of acute infarction. 2. Several areas of signal abnormality in the basal ganglia and left posterior temporal lobes likely from prior hemorrhage. 3. Demyelination within the cerebral and pontine white matter likely from small vessel ischemic change. Anam Donis MD Procedures 5/3 Pending PEG 5/3 Pending Trach Objective Remarks General - elderly lady, trached, awake, ill-appearing HEENT - pupils equal, reactive, sclerae anicteric, neck supple, no neck vein distention, 8.0 Shiley tracheostomy CV - regular S1 and S2, no murmurs Chest - scattered coarse breath sounds b/l, no wheezes Abdomen - soft, nontender, distended, BS present, PEG tube - exit site clean Extremities - warm, 1+ edema over lower extremities, + peripheral pulses Neuro - awake, follows some commands, moves all extremities but she remains weak A/P Problem List: (1) Acute metabolic encephalopathy ICD Code: G93.41 - Metabolic encephalopathy Status: Acute (2) Paroxysmal atrial fibrillation with rapid ventricular response ICD Code: I48.0 - Paroxysmal atrial fibrillation Status: Acute (3) Lactic acidemia ICD Code: E87.2 - Acidosis Status: Acute (4) Cardiomyopathy ICD Code: I42.9 - Cardiomyopathy, unspecified Status: Chronic (5) Non-ST elevation ME (NSTEMI) ICD Code: I21.4 - Non-ST elevation (NSTEMI) myocardial infarction Status: Acute (6) Severe sepsis ICD Code: A41.9 - Sepsis, unspecified organism; R65.20 - Severe sepsis without septic shock Status: Acute (7) Altered mental status ICD Code: R41.82 - Altered mental status, unspecified Status: Acute (8) Hypertension ICD Code: I10 - Hypertension Status: Chronic (9) LAI (acute kidney injury) ICD Code: N17.9 - Acute kidney failure, unspecified Status: Acute (10) Metabolic acidosis ICD Code: E87.2 - Acidosis Status: Acute Assessment and Plan Neuro/Psych: Acute encephalopathy - improved 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 fib with RVR -currently in sinus rhythm Nonischemic cardiomyopathy, with reduced EF History of diastolic heart failure 03/30 NSTEMI Moderate MR History of essential hypertension Hold amiodarone 200 mg p.o. twice daily due to bradycardia. Previously on metoprolol tartrate 25 mg every 6 hours Echocardiogram revealed EF 55%. Bilateral atrial enlargement. Pulmonary arterial pressure 33 mmHg Previous echocardiogram 2013 revealed EF 55-60%. Grade 1 diastolic dysfunction. Continue atorvastatin 10 mg at night Resp: Vent dependent respiratory failure -status post tracheostomy 12/[address] on trach collar/T piece as tolerated during the daytime Place back on vent but maintain on CPAP as long as patient tolerates over the night Vent bundle Albuterol/ipratropium aerosols every 6 hours with albuterol aerosols every 2 hours as needed dyspnea GI: Status post PEG tube placement -Dr. Mendes 12/17 Hypoalbuminemia Acute blood loss anemia Hemorrhage around the PEG tube site Tube feeds restarted per GI Aspirin restarted Thursday Start Eliquis today On pantoprazole twice daily Tube feeds - Jevity 1.5 goal 50 cc an hour per nutrition recommendations Famotidine 10 mg twice daily for GI prophylaxis Docusate sodium/senna 1 tablet twice daily for bowel regimen : History of hematuria Baca catheter has been placed for accurate I's and O's in a critically ill patient Endo: Sliding scale insulin with NovoLog with Accu-Cheks every 6 hours to maintain euglycemia can be discontinued today. No sliding scale 12/08 Renal: Creatinine currently within normal limits Monitor urine output Accurate I's and O's Heme: Normocytic anemia Received 1 unit PRBC Restart apixaban today ID: CoNS bacteremia vs contaminant Repeat blood cultures sent this morning. We will hold antibiotics for now since the shunt is afebrile without leukocytosis Off all antibiotics. Evaluated by Dr. Amaro. Believe this was aspiration pneumonia. LP/cultures also see no growth. Blood cultures 12/12 revealed staph epi likely contaminant. All remainder microbiology has no growth Had one episode of fever on 12/23 -cultures sent MSK: PT evaluate and treat FEN: Replace electrolytes as clinically indicated Access -Utilize peripheral IV. -Right subclavian central line removed Prophylaxis -GI -famotidine -DVT -SCD Level 2 follow-up No family present at bedside Problem Qualifiers (1) Altered mental status: (2) Hypertension: Qualified Codes: I10 - Essential (primary) hypertension Kiel Hernandez MD December 27, 2017 12:14
[2017-12-27] MEDS: ALPRAZolam 1 MG TAB PO PRN (15:16)
[2017-12-27] MEDS: DEXMEDETOMIDINE INJ 1,000 MCG in SODIUM CHLOR 0.9% 250 ML INJ 250 ML IV PRN (19:37)
[2017-12-27] MEDS: APIXABAN 5 MG TABLET PO SCH (21:47)
[2017-12-28] VITALS (16 sets, daily range): BP systolic 132–182; BP diastolic 60–107; PULSE 53–115; RESP 16–37; TEMP 98.4–100.7; O2SAT 96–100
[2017-12-28] MEDS: FREE WATER G-TUBE SCH ×2 (00:44→08:35)
[2017-12-28] MEDS: PANTOPRAZOLE SODIUM 40 MG VIAL IV PUSH SCH ×2 (01:03→12:51)
[2017-12-28] MEDS: CHLORHEXIDINE GLUCONATE 2 % 1 PACK (2 CLOTHS) TOP SCH (04:00)
[2017-12-28] MEDS: oxyCODONE HCL ORAL CONC 5 MG/0.25 ML SYRINGE PO SCH ×2 (05:13→11:07)
[2017-12-28] MEDS: ARTIFICIAL TEARS OPTH SOLN 15 ML BTL EACH EYE SCH ×3 (05:13→19:58)
[2017-12-28] MEDS: ALPRAZolam 1 MG TAB PO PRN ×3 (05:26→17:52)
[2017-12-28 05:52] LABS: ALBUMIN 1.8 GM/DL (3.4-5.0); ALT (GPT) 20 U/L (10-53); AST (GOT) 16 U/L (15-37); AUTOMATED NEUTROPHIL # 3.1 TH/MM3 (1.8-7.7); BASOPHIL % 0.5 % (0.0-2.0); BICARBONATE 25.1 MEQ/L (21.0-32.0); BLOOD UREA NITROGEN 24 MG/DL (7-18); CALCIUM 8.6 MG/DL (8.5-10.1); CHLORIDE 107 MEQ/L (98-107); CREATININE 1.19 MG/DL (0.50-1.00); EOSINOPHIL # 0.2 TH/MM3 (0-0.4); EOSINOPHIL % 4.6 % (0.0-4.0); GLOMERULAR FILTRATION RATE 44 ML/MIN (>89); GLUCOSE,RANDOM 107 MG/DL (74-106); HEMATOCRIT 25.7 % (35.0-46.0); HEMOGLOBIN 8.2 GM/DL (11.6-15.3); LYMPH % 26.5 % (9.0-44.0); LYMPHOCYTE # 1.4 TH/MM3 (1.0-4.8); MAGNESIUM 1.8 MG/DL (1.5-2.5); MEAN CELL VOLUME 85.1 FL (80.0-100.0); MEAN CORPUSCULAR HEMOGLOBIN 27.3 PG (27.0-34.0); MEAN CORPUSCULAR HGB CONC 32.1 % (32.0-36.0); MEAN PLATELET VOLUME 9.2 FL (7.0-11.0); MONO % 8.5 % (0.0-8.0); MONOCYTE # 0.4 TH/MM3 (0-0.9); NEUT % 59.9 % (16.0-70.0); PHOSPHORUS 3.2 MG/DL (2.5-4.9); PLATELET COUNT 211 TH/MM3 (150-450); RED BLOOD COUNT 3.02 MIL/MM3 (4.00-5.30); RED CELL DISTRIBUTION WIDTH 13.5 % (11.6-17.2); SODIUM (NA) 142 MEQ/L (136-145); WHITE BLOOD COUNT 5.2 TH/MM3 (4.0-11.0)
[2017-12-28 05:56] LABS: ALKALINE PHOSPHATASE 123 U/L (45-117); TOTAL BILIRUBIN ADULT 0.2 MG/DL (0.2-1.0); TOTAL PROTEIN 5.4 GM/DL (6.4-8.2)
[2017-12-28] MEDS: ASPIRIN 81 MG CHEW TAB NG SCH (08:35)
[2017-12-28] MEDS: SODIUM CHLORIDE FLUSH BID IV FLUSH SCH ×2 (08:35→19:57)
[2017-12-28] MEDS: APIXABAN 5 MG TABLET PO SCH ×2 (08:35→19:56)
[2017-12-28] MEDS: CHLORHEXIDINE 0.12% (ORAL KIT) 15 ML CUP MT SCH ×2 (08:35→19:56)
[2017-12-28] MEDS: DOCUSATE SODIUM 50 MG/SENNA 8.6 MG TAB PO SCH ×2 (08:35→19:56)
[2017-12-28] MEDS: NYSTATIN 100,000 U/GM PWD 15 GM BTL TOPICAL SCH ×2 (08:36→19:58)
[2017-12-28] MEDS: QUEtiapine FUMARATE 25 MG TAB PO SCH ×2 (08:36→19:56)
--- NOTE | 2017-12-28 09:09 | HHI.CCPN ---
Subjective Remarks/Hospital Course 77-year-old female who is apparently very active at baseline, with past medical history significant for hypertension and previous TIA, tobacco abuse. She was seen last normal yesterday night at 7 PM. Her friends checked on her today morning and was found down, disoriented, staring off to the left, not answering questions. I am not able to get much further history from her. She has a fever of 101 in the ER, initially and then spiked to 103.7. ER workup included a CT scan of head which was negative for acute findings. Lab work showed a white count of 15.9 with left shift, lactic acid was 3.4, troponin was elevated at 8.7. Cardiology Dr. Meza was contacted aspirin was given patient was recommended to be started on IV heparin but was held for LP. Lumbar puncture was unremarkable nevertheless patient was started on meningitic doses of vancomycin and Rocephin. I have added ampicillin 2 g IV every 4 hours, and acyclovir 680 mg IV every 8 hours. I evaluated the patient in the ICU. Patient is severely altered tachypneic in moderate distress. Patient is aphasic with left gaze preference diminished movements of the right upper and lower extremity. A bedside echo shows reduced EF approximately 20-25%, global hypokinesis. Patient has no history of cardiomyopathy to my knowledge. At this time his stroke cannot be ruled out. Stat MRI MRA had been ordered. Due to altered mentation tachypnea and lack of airway protection patient was intubated and placed on mechanical ventilation 12/05: Remains intubated sedated. MRI brain showing small punctate areas of signal abnormality in the posterior left temporal lobe-possible small focal areas of acute infarction. Also several areas of signal abnormality in the basal ganglia and left posterior temporal lobes likely from prior hemorrhage. Demyelination within the cerebral and pontine white matter likely from small vessel ischemic change. Neurology consult. Stat EEG is pending. Fever is down trending afebrile now, developed atrial fibrillation with RVR started on amiodarone infusion. I have resumed heparin infusion. 12/06: Afebrile. Last evening the patient had decreased mat requiring additional pressor support vasopressin added to medication regimen and diminished urinary output. Patient was noted to have significant elevation in creatinine this a.m. Patient remains on vasopressin and norepinephrine vasopressor support. Patient continues on amiodarone infusion, plan to transition to p.o.. Sedation vacation initiated yesterday for EEG, per report patient following commands. Sedation vacation in progress at this time. Noticed slight elevation in WBC count, repeat urine culture pending. 12/07: Remains intubated sedated. Currently on IV heparin infusion, amiodarone infusion and vasopressin gtt to maintain MAP >65. Had developed acute kidney injury yesterday creatinine had bumped to 2. Urine output 550 mL in the last 24 hours. CMP today is pending. On sedation hold patient opens eyes weakly moves extremities do not follow commands. Remains severely encephalopathy 12/08: No events over the night. Patient remains encephalopathic, opens eyes to voice stimuli, but does not consistently follow commands. She remains on amiodarone and heparin infusions, no pressors. T-max of 99.6. I/O 2250/960, more than 11 L positive since admission if correctly documented. 12/09: Few episodes of A. fib with RVR over the night. T-max of 99.1. Patient remains intubated and sedated. No family present at bedside. 12/10: No events over the night. Patient is more awake this a.m. 30 with propofol. Good response to diuresis, T-max 100.1. In telemetry, patient currently in sinus rhythm and she continues to be on amiodarone infusion. 12/11: No events over the night. T-max of 100.2. On 35 off propofol this morning, arousable, following some commands. Diuresing well with Lasix. She remains in sinus rhythm. 12/12: Patient remains intubated and sedated, on propofol at 35. Yesterday patient tolerated CPAP trials for a little less than 2 hours. Afebrile, with a T-max of 99.8. I/O 2069/2099. Patient is arousable, tracking, following some commands. 12/13: No events over the night. T-max of 99.9. Patient is awake, on some sedation, following some commands. Urine dark with some sediment. 12/14: Patient developed worsening hematuria over the night therefore I stopped heparin drip this morning. Yesterday she tolerated CPAP for approximately 2 hours then she became tachypneic. Sedation was changed to Precedex and propofol was stopped, patient is awake and calm following commands. Still significant amount of sputum secretions. T-max of 99.1. I/O 2485/1125. 12/15: Tmax 100.2. The patient continues on Precedex infusion, with a RASS -1. No active signs of bleeding, no hematuria noted. Subcu heparin DVT prophylaxis instituted. 12/16: T-max 100.3. Patient awake and responsive on Precedex infusion. Discussion with family planned for tracheostomy and PEG placement, due to slow vent weaning. Patient continues on CPAP trials. Creatinine slightly more elevated today IV infusion increased to 100 cc/hr. 12/17: T-max 99.8. Patient tolerated CPAP trials for greater than 10 hours yesterday, on Precedex infusion. During the night the patient was more agitated , propofol infusion initiated, Precedex infusion discontinued. Plans for tracheostomy and PEG placement today. Patient continues on IV fluid 100 cc/ hour BMP pending. 12/18: Afebrile. No acute events overnight patient is postop day 1 status post tracheostomy and PEG placement tube feeds reinitiated no residuals noted will advance to goal rate today. Patient's creatinine has improved IV fluids discontinued at this time. CPAP trials to begin today. Subcu heparin resumed. 12/19: Afebrile. Patient currently on Precedex 0.8 mcgs/kg/hr. Patient is awake nodding yes and no to questions slightly anxious. The patient denies any pain. Xanax 1 mg every 6 hours as needed order. Sodium level noted to be trending slightly upward free water flushes 200 cc/8 hours initiated. 12/20: Continues on dexmedetomidine at 1.0 mcg/kg/hr. On CPAP 12 hours yesterday. Tolerated well currently on Zoloft. Tube feeds at goal. Positive BM. Awake and follows commands 4 SUBJECTIVE: 12/21: Continues on dexmedetomidine drip. Remains on CPAP. Will attempt to start quetiapine today 25 mg daily and schedule oxycodone 5 mg every 6 hours and attempt to wean off dexmedetomidine drip. Tolerating tube feeds at goal. Awake and follows commands. 12/22: No events over the night. T-max of 99.1. Patient in sinus rhythm. I/O 1764/675. Patient is awake, tolerating higher pressure support CPAP. 12/23: Still with some bleeding around the PEG tube site. Hemoglobin lower at this morning 1 unit PRBC was ordered. T-max of 99.7 over the night, 1200 mL's of urine output. Scheduled to undergo EGD today. On pantoprazole drip. 12/24: No events over the night. Bleeding around the PEG site stopped. Patient remains on pantoprazole drip and dexmedetomidine infusion. She is tolerating CPAP. T-max of 100.5 yesterday morning. Morning chest x-ray reviewed, cardiomegaly, trach is in place, still with bibasilar opacities not significantly changed. 12/25: Patient tolerated trach collar yesterday for approximately 7 hours. She was placed back on full support last night. Currently patient is back on trach collar, doing well. She is awake, on Precedex at 0.3. Afebrile over the night with a T-max of 99.2. She responded well to diuretics, with a urine output of 2.8 L over the last 24 hours. 12/26: No events over the night. T-max of 99.6. Patient remains on Precedex infusion. Responded well to diuretics, urine output more than 3 L over the last 24 hours. Patient yesterday tolerated T piece for approximately 6-7 hours and then she required full support. 12/27: No events over the night. Patient is currently on CPAP 07/21 tolerating well. She is awake, following some commands becomes easily agitated. 12/28 No events overnight. On Precedex drip 0.6. Afebrile. Tolerated CPAP all day yesterday. Objective Vital Signs Date Time Temp Pulse Resp B/P (MAP) Pulse Ox O2 Delivery O2 Flow Rate FiO2 12/28/17 08:00 98.6 53 16 138/62 (87) 100 12/28/17 08:00 35 12/25/17 08:25 T-piece 12/24/17 11:15 10.00 Intake and Output 12/28/17 12/28/17 12/29/17 08:00 16:00 00:00 Intake Total 936 ml Output Total 850 ml Balance 86 ml Result Diagram: 12/28/17 0400 12/28/17 0400 Other Results Laboratory Tests Test 12/27/17 18:39 12/28/17 04:00 Activated Partial Thromboplast Time 28.6 SEC White Blood Count 5.2 TH/MM3 Red Blood Count 3.02 MIL/MM3 Hemoglobin 8.2 GM/DL Hematocrit 25.7 % Mean Corpuscular Volume 85.1 FL Mean Corpuscular Hemoglobin 27.3 PG Mean Corpuscular Hemoglobin Concent 32.1 % Red Cell Distribution Width 13.5 % Platelet Count 211 TH/MM3 Mean Platelet Volume 9.2 FL Neutrophils (%) (Auto) 59.9 % Lymphocytes (%) (Auto) 26.5 % Monocytes (%) (Auto) 8.5 % Eosinophils (%) (Auto) 4.6 % Basophils (%) (Auto) 0.5 % Neutrophils # (Auto) 3.1 TH/MM3 Lymphocytes # (Auto) 1.4 TH/MM3 Monocytes # (Auto) 0.4 TH/MM3 Eosinophils # (Auto) 0.2 TH/MM3 Basophils # (Auto) 0.0 TH/MM3 CBC Comment DIFF FINAL Differential Comment Hematology Comments Blood Urea Nitrogen 24 MG/DL Creatinine 1.19 MG/DL Random Glucose 107 MG/DL Total Protein 5.4 GM/DL Albumin 1.8 GM/DL Calcium Level 8.6 MG/DL Phosphorus Level 3.2 MG/DL Magnesium Level 1.8 MG/DL Alkaline Phosphatase 123 U/L Aspartate Amino Transf (AST/SGOT) 16 U/L Alanine Aminotransferase (ALT/SGPT) 20 U/L Total Bilirubin 0.2 MG/DL Sodium Level 142 MEQ/L Potassium Level 4.2 MEQ/L Chloride Level 107 MEQ/L Carbon Dioxide Level 25.1 MEQ/L Anion Gap 10 MEQ/L Estimat Glomerular Filtration Rate 44 ML/MIN Imaging Last Impressions Chest X-Ray 12/27/17 0600 Signed Impressions: Service Date/Time: Wednesday, December 27, 2017 04:11 - CONCLUSION: No significant change. Bilateral effusions with apparent airspace disease in the lung bases. The findings may indicate congestive heart failure. Hari Stewart MD Abdomen/Pelvis CT 12/22/17 0000 Signed Impressions: Service Date/Time: Friday, December 22, 2017 12:13 - CONCLUSION: 1. There is diffuse prominent body anasarca 2. Small amount of free fluid deep in the pelvis with edema throughout the mesenteric fat. This is most likely related to patient's anasarca. 3. Bilateral pleural effusions. 4. Left ovarian cyst measuring 1.6 cm. 5. Gastrostomy tube in the stomach. Chinmay J. Siragusa, MD Liver Ultrasound 12/11/17 0000 Signed Impressions: Service Date/Time: Monday, December 11, 2017 13:59 - CONCLUSION: 1. Liver is prominent with no focal mass lesions or fatty infiltration. 2. Trace fluid about the liver. 3. Bilateral pleural effusions. Mahendra Poe MD Chest CT 12/04/17 1154 Signed Impressions: Service Date/Time: Monday, December 04, 2017 12:43 - CONCLUSION: Probable mild congestive failure with trace pleural effusions. No evidence for mass. Jean-Paul Hoffmann MD FACR Head CT 12/04/17 1126 Signed Impressions: Service Date/Time: Monday, December 04, 2017 12:37 - CONCLUSION: Stable brain appearance. No acute intracranial findings Anam Rojas MD Neck Magnetic Resonance Angiography 12/04/17 0000 Signed Impressions: Service Date/Time: Monday, December 04, 2017 20:36 - CONCLUSION: 1. Mild plaque at the right carotid bulb/proximal internal carotid artery without significant stenosis. 2. Significant opacification of the aortic arch and origins of the great vessels is not present. These areas cannot be evaluated. Anam Donis MD Head Magnetic Resonance Angiography 12/04/17 0000 Signed Impressions: Service Date/Time: Monday, December 04, 2017 20:36 - CONCLUSION: No acute disease. Anam Donis MD Brain MRI 12/04/17 0000 Signed Impressions: Service Date/Time: Monday, December 04, 2017 20:36 - CONCLUSION: 1. Small punctate areas of signal abnormality in the posterior left temporal lobe which may represent small focal areas of acute infarction. 2. Several areas of signal abnormality in the basal ganglia and left posterior temporal lobes likely from prior hemorrhage. 3. Demyelination within the cerebral and pontine white matter likely from small vessel ischemic change. Anam Donis MD Procedures 5/3 Pending PEG 5/3 Pending Trach Objective Remarks General - elderly lady, trached, awake, ill-appearing HEENT - pupils equal, reactive, sclerae anicteric, neck supple, no neck vein distention, 8.0 Shiley tracheostomy CV - regular S1 and S2, no murmurs Chest - scattered coarse breath sounds b/l, no wheezes Abdomen - soft, nontender, distended, BS present, PEG tube - exit site clean Extremities - warm, 1+ edema over lower extremities, + peripheral pulses Neuro - awake, follows some commands, moves all extremities but she remains weak A/P Problem List: (1) Acute metabolic encephalopathy ICD Code: G93.41 - Metabolic encephalopathy Status: Acute (2) Paroxysmal atrial fibrillation with rapid ventricular response ICD Code: I48.0 - Paroxysmal atrial fibrillation Status: Acute (3) Lactic acidemia ICD Code: E87.2 - Acidosis Status: Acute (4) Cardiomyopathy ICD Code: I42.9 - Cardiomyopathy, unspecified Status: Chronic (5) Non-ST elevation [place] (NSTEMI) ICD Code: I21.4 - Non-ST elevation (NSTEMI) myocardial infarction Status: Acute (6) Severe sepsis ICD Code: A41.9 - Sepsis, unspecified organism; R65.20 - Severe sepsis without septic shock Status: Acute (7) Altered mental status ICD Code: R41.82 - Altered mental status, unspecified Status: Acute (8) Hypertension ICD Code: I10 - Hypertension Status: Chronic (9) LAI (acute kidney injury) ICD Code: N17.9 - Acute kidney failure, unspecified Status: Acute (10) Metabolic acidosis ICD Code: E87.2 - Acidosis Status: Acute Assessment and Plan Neuro/Psych: Acute encephalopathy - improved 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 fib with RVR -currently in sinus rhythm Nonischemic cardiomyopathy, with reduced EF History of diastolic heart failure 03/30 NSTEMI Moderate MR History of essential hypertension Monitor HR and BP keep MAP>65mmHg Place on Hydralazine 25mg Q8 Echocardiogram revealed EF 55%. Bilateral atrial enlargement. Pulmonary arterial pressure 33 mmHg Previous echocardiogram 2013 revealed EF 55-60%. Grade 1 diastolic dysfunction. Continue atorvastatin 10 mg at night, ASA 81mg daily, Eliquis 5mg BID Resp: Vent dependent respiratory failure -status post tracheostomy 12/[address] Flor Continue with vent support keep sats >92% Bronchodilators, Vent bundle Pulm toilet, trach care GI: Status post PEG tube placement -Dr. Mendes 12/17 Hypoalbuminemia Acute blood loss anemia Hemorrhage around the PEG tube site On pantoprazole twice daily Tube feeds - Jevity 1.5 goal 50 cc an hour per nutrition recommendations Docusate sodium/senna 1 tablet twice daily for bowel regimen : History of hematuria Monitor renal function, I/O's, electrolytes replacement per protocol Endo: SSI if needed for glycemic control Heme: Normocytic anemia Monitor CBC On Apixaban 5mg bID ID: Off all antibiotics. Monitor for signs of infections ( Fever, WBC) Evaluated by Dr. Amaro. Believe this was aspiration pneumonia. LP/cultures also see no growth. Blood cultures 12/12 revealed staph epi likely contaminant. All remainder microbiology has no growth MSK: PT evaluate and treat Access -Utilize peripheral IV. Prophylaxis -GI -Protonix 40mg daily -DVT -SCD, Eliquis 5mg BID Level 2 Problem Qualifiers (1) Altered mental status: (2) Hypertension: Qualified Codes: I10 - Essential (primary) hypertension Shahrzad Bautista MD December 28, 2017 09:09
[2017-12-28] MEDS: RESP: ALBUTEROL 2.5 MG/IPRATROPIUM 0.5 MG NEB (SCH) NEB ×3 (10:18→20:38)
[2017-12-28] MEDS: hydrALAZINE HCL 25 MG TAB PO SCH ×2 (16:44→21:53)
[2017-12-29] VITALS (20 sets, daily range): BP systolic 131–145; BP diastolic 58–104; PULSE 80–107; RESP 17–25; TEMP 97.8–99.6; O2SAT 94–100
[2017-12-29] MEDS: ALPRAZolam 1 MG TAB PO PRN ×4 (00:07→19:37)
[2017-12-29] MEDS: PANTOPRAZOLE SODIUM 40 MG VIAL IV PUSH SCH ×2 (01:17→13:09)
[2017-12-29] MEDS: RESP: ALBUTEROL 2.5 MG/IPRATROPIUM 0.5 MG NEB (SCH) NEB ×4 (03:21→21:48)
[2017-12-29] MEDS: CHLORHEXIDINE GLUCONATE 2 % 1 PACK (2 CLOTHS) TOP SCH (03:27)
[2017-12-29 04:51] LABS: AUTOMATED NEUTROPHIL # 6.8 TH/MM3 (1.8-7.7); BASOPHIL % 0.4 % (0.0-2.0); EOSINOPHIL # 0.1 TH/MM3 (0-0.4); EOSINOPHIL % 1.7 % (0.0-4.0); HEMATOCRIT 21.3 % (35.0-46.0); HEMOGLOBIN 7.1 GM/DL (11.6-15.3); LYMPH % 10.9 % (9.0-44.0); LYMPHOCYTE # 0.9 TH/MM3 (1.0-4.8); MEAN CELL VOLUME 81.6 FL (80.0-100.0); MEAN CORPUSCULAR HEMOGLOBIN 27.2 PG (27.0-34.0); MEAN CORPUSCULAR HGB CONC 33.3 % (32.0-36.0); MEAN PLATELET VOLUME 9.2 FL (7.0-11.0); MONO % 4.6 % (0.0-8.0); MONOCYTE # 0.4 TH/MM3 (0-0.9); NEUT % 82.4 % (16.0-70.0); PLATELET COUNT 225 TH/MM3 (150-450); RED CELL DISTRIBUTION WIDTH 13.5 % (11.6-17.2); WHITE BLOOD COUNT 8.2 TH/MM3 (4.0-11.0)
[2017-12-29 05:11] LABS: ALBUMIN 2.1 GM/DL (3.4-5.0); ALT (GPT) 18 U/L (10-53); AST (GOT) 17 U/L (15-37); BICARBONATE 29.8 MEQ/L (21.0-32.0); BLOOD UREA NITROGEN 24 MG/DL (7-18); CALCIUM 8.7 MG/DL (8.5-10.1); CHLORIDE 105 MEQ/L (98-107); CREATININE 1.18 MG/DL (0.50-1.00); GLOMERULAR FILTRATION RATE 45 ML/MIN (>89); GLUCOSE,RANDOM 94 MG/DL (74-106); MAGNESIUM 1.8 MG/DL (1.5-2.5); PHOSPHORUS 3.4 MG/DL (2.5-4.9); SODIUM (NA) 142 MEQ/L (136-145)
[2017-12-29 05:13] LABS: ALKALINE PHOSPHATASE 117 U/L (45-117); TOTAL BILIRUBIN ADULT 0.3 MG/DL (0.2-1.0); TOTAL PROTEIN 5.5 GM/DL (6.4-8.2)
[2017-12-29] MEDS: hydrALAZINE HCL 25 MG TAB PO SCH ×3 (05:32→22:36)
[2017-12-29] MEDS: ARTIFICIAL TEARS OPTH SOLN 15 ML BTL EACH EYE SCH ×3 (05:33→22:36)
--- NOTE | 2017-12-29 07:21 | HHI.CCPN ---
Subjective Remarks/Hospital Course 77-year-old female who is apparently very active at baseline, with past medical history significant for hypertension and previous TIA, tobacco abuse. She was seen last normal yesterday night at 7 PM. Her friends checked on her today morning and was found down, disoriented, staring off to the left, not answering questions. I am not able to get much further history from her. She has a fever of 101 in the ER, initially and then spiked to 103.7. ER workup included a CT scan of head which was negative for acute findings. Lab work showed a white count of 15.9 with left shift, lactic acid was 3.4, troponin was elevated at 8.7. Cardiology Dr. Meza was contacted aspirin was given patient was recommended to be started on IV heparin but was held for LP. Lumbar puncture was unremarkable nevertheless patient was started on meningitic doses of vancomycin and Rocephin. I have added ampicillin 2 g IV every 4 hours, and acyclovir 680 mg IV every 8 hours. I evaluated the patient in the ICU. Patient is severely altered tachypneic in moderate distress. Patient is aphasic with left gaze preference diminished movements of the right upper and lower extremity. A bedside echo shows reduced EF approximately 20-25%, global hypokinesis. Patient has no history of cardiomyopathy to my knowledge. At this time his stroke cannot be ruled out. Stat MRI MRA had been ordered. Due to altered mentation tachypnea and lack of airway protection patient was intubated and placed on mechanical ventilation 12/05: Remains intubated sedated. MRI brain showing small punctate areas of signal abnormality in the posterior left temporal lobe-possible small focal areas of acute infarction. Also several areas of signal abnormality in the basal ganglia and left posterior temporal lobes likely from prior hemorrhage. Demyelination within the cerebral and pontine white matter likely from small vessel ischemic change. Neurology consult. Stat EEG is pending. Fever is down trending afebrile now, developed atrial fibrillation with RVR started on amiodarone infusion. I have resumed heparin infusion. 12/06: Afebrile. Last evening the patient had decreased mat requiring additional pressor support vasopressin added to medication regimen and diminished urinary output. Patient was noted to have significant elevation in creatinine this a.m. Patient remains on vasopressin and norepinephrine vasopressor support. Patient continues on amiodarone infusion, plan to transition to p.o.. Sedation vacation initiated yesterday for EEG, per report patient following commands. Sedation vacation in progress at this time. Noticed slight elevation in WBC count, repeat urine culture pending. 12/07: Remains intubated sedated. Currently on IV heparin infusion, amiodarone infusion and vasopressin gtt to maintain MAP >65. Had developed acute kidney injury yesterday creatinine had bumped to 2. Urine output 550 mL in the last 24 hours. CMP today is pending. On sedation hold patient opens eyes weakly moves extremities do not follow commands. Remains severely encephalopathy 12/08: No events over the night. Patient remains encephalopathic, opens eyes to voice stimuli, but does not consistently follow commands. She remains on amiodarone and heparin infusions, no pressors. T-max of 99.6. I/O 2250/960, more than 11 L positive since admission if correctly documented. 12/09: Few episodes of A. fib with RVR over the night. T-max of 99.1. Patient remains intubated and sedated. No family present at bedside. 12/10: No events over the night. Patient is more awake this a.m. 30 with propofol. Good response to diuresis, T-max 100.1. In telemetry, patient currently in sinus rhythm and she continues to be on amiodarone infusion. 12/11: No events over the night. T-max of 100.2. On 35 off propofol this morning, arousable, following some commands. Diuresing well with Lasix. She remains in sinus rhythm. 12/12: Patient remains intubated and sedated, on propofol at 35. Yesterday patient tolerated CPAP trials for a little less than 2 hours. Afebrile, with a T-max of 99.8. I/O 2069/2099. Patient is arousable, tracking, following some commands. 12/13: No events over the night. T-max of 99.9. Patient is awake, on some sedation, following some commands. Urine dark with some sediment. 12/14: Patient developed worsening hematuria over the night therefore I stopped heparin drip this morning. Yesterday she tolerated CPAP for approximately 2 hours then she became tachypneic. Sedation was changed to Precedex and propofol was stopped, patient is awake and calm following commands. Still significant amount of sputum secretions. T-max of 99.1. I/O 2485/1125. 12/15: Tmax 100.2. The patient continues on Precedex infusion, with a RASS -1. No active signs of bleeding, no hematuria noted. Subcu heparin DVT prophylaxis instituted. 12/16: T-max 100.3. Patient awake and responsive on Precedex infusion. Discussion with family planned for tracheostomy and PEG placement, due to slow vent weaning. Patient continues on CPAP trials. Creatinine slightly more elevated today IV infusion increased to 100 cc/hr. 12/17: T-max 99.8. Patient tolerated CPAP trials for greater than 10 hours yesterday, on Precedex infusion. During the night the patient was more agitated , propofol infusion initiated, Precedex infusion discontinued. Plans for tracheostomy and PEG placement today. Patient continues on IV fluid 100 cc/ hour BMP pending. 12/18: Afebrile. No acute events overnight patient is postop day 1 status post tracheostomy and PEG placement tube feeds reinitiated no residuals noted will advance to goal rate today. Patient's creatinine has improved IV fluids discontinued at this time. CPAP trials to begin today. Subcu heparin resumed. 12/19: Afebrile. Patient currently on Precedex 0.8 mcgs/kg/hr. Patient is awake nodding yes and no to questions slightly anxious. The patient denies any pain. Xanax 1 mg every 6 hours as needed order. Sodium level noted to be trending slightly upward free water flushes 200 cc/8 hours initiated. 12/20: Continues on dexmedetomidine at 1.0 mcg/kg/hr. On CPAP 12 hours yesterday. Tolerated well currently on Zoloft. Tube feeds at goal. Positive BM. Awake and follows commands 4 SUBJECTIVE: 12/21: Continues on dexmedetomidine drip. Remains on CPAP. Will attempt to start quetiapine today 25 mg daily and schedule oxycodone 5 mg every 6 hours and attempt to wean off dexmedetomidine drip. Tolerating tube feeds at goal. Awake and follows commands. 12/22: No events over the night. T-max of 99.1. Patient in sinus rhythm. I/O 1764/675. Patient is awake, tolerating higher pressure support CPAP. 12/23: Still with some bleeding around the PEG tube site. Hemoglobin lower at this morning 1 unit PRBC was ordered. T-max of 99.7 over the night, 1200 mL's of urine output. Scheduled to undergo EGD today. On pantoprazole drip. 12/24: No events over the night. Bleeding around the PEG site stopped. Patient remains on pantoprazole drip and dexmedetomidine infusion. She is tolerating CPAP. T-max of 100.5 yesterday morning. Morning chest x-ray reviewed, cardiomegaly, trach is in place, still with bibasilar opacities not significantly changed. 12/25: Patient tolerated trach collar yesterday for approximately 7 hours. She was placed back on full support last night. Currently patient is back on trach collar, doing well. She is awake, on Precedex at 0.3. Afebrile over the night with a T-max of 99.2. She responded well to diuretics, with a urine output of 2.8 L over the last 24 hours. 12/26: No events over the night. T-max of 99.6. Patient remains on Precedex infusion. Responded well to diuretics, urine output more than 3 L over the last 24 hours. Patient yesterday tolerated T piece for approximately 6-7 hours and then she required full support. 12/27: No events over the night. Patient is currently on CPAP 07/21 tolerating well. She is awake, following some commands becomes easily agitated. 12/28 No events overnight. On Precedex drip 0.6. Afebrile. Tolerated CPAP all day yesterday. 12/29 Patient remains on ventilator via trach, T;100.7 last night. Off Precedex drip. Objective Vital Signs Date Time Temp Pulse Resp B/P (MAP) Pulse Ox O2 Delivery O2 Flow Rate FiO2 12/29/17 06:00 84 12/29/17 04:00 97.8 17 131/62 (85) 100 12/29/17 04:00 35 12/25/17 08:25 T-piece Intake and Output 12/29/17 12/29/17 12/30/17 08:00 16:00 00:00 Intake Total 592 ml Output Total 575 ml Balance 17 ml Result Diagram: 12/29/17 0319 12/29/17 0319 Other Results Laboratory Tests Test 12/28/17 16:38 12/28/17 19:21 12/29/17 03:19 Blood Gas Puncture Site LT RADIAL Blood Gas Patient Temperature 98.6 Blood Gas HCO3 28 mmol/L Blood Gas Base Excess 4.3 mmol/L Blood Gas Oxygen Saturation 96 % Arterial Blood pH 7.44 Arterial Blood Partial Pressure CO2 43 mmHg Arterial Blood Partial Pressure O2 97 mmHg Arterial Blood Oxygen Content 10.7 Vol % Arterial Blood Carboxyhemoglobin 1.1 % Arterial Blood Methemoglobin 1.0 % Blood Gas Hemoglobin 7.9 G/DL Oxygen Delivery Device VENTILATOR Blood Gas Ventilator Setting 16/500/+5/35% Blood Gas Inspired Oxygen 35 % Activated Partial Thromboplast Time 28.0 SEC White Blood Count 8.2 TH/MM3 Red Blood Count 2.60 MIL/MM3 Hemoglobin 7.1 GM/DL Hematocrit 21.3 % Mean Corpuscular Volume 81.6 FL Mean Corpuscular Hemoglobin 27.2 PG Mean Corpuscular Hemoglobin Concent 33.3 % Red Cell Distribution Width 13.5 % Platelet Count 225 TH/MM3 Mean Platelet Volume 9.2 FL Neutrophils (%) (Auto) 82.4 % Lymphocytes (%) (Auto) 10.9 % Monocytes (%) (Auto) 4.6 % Eosinophils (%) (Auto) 1.7 % Basophils (%) (Auto) 0.4 % Neutrophils # (Auto) 6.8 TH/MM3 Lymphocytes # (Auto) 0.9 TH/MM3 Monocytes # (Auto) 0.4 TH/MM3 Eosinophils # (Auto) 0.1 TH/MM3 Basophils # (Auto) 0.0 TH/MM3 CBC Comment DIFF FINAL Differential Comment Blood Urea Nitrogen 24 MG/DL Creatinine 1.18 MG/DL Random Glucose 94 MG/DL Total Protein 5.5 GM/DL Albumin 2.1 GM/DL Calcium Level 8.7 MG/DL Phosphorus Level 3.4 MG/DL Magnesium Level 1.8 MG/DL Alkaline Phosphatase 117 U/L Aspartate Amino Transf (AST/SGOT) 17 U/L Alanine Aminotransferase (ALT/SGPT) 18 U/L Total Bilirubin 0.3 MG/DL Sodium Level 142 MEQ/L Potassium Level 4.2 MEQ/L Chloride Level 105 MEQ/L Carbon Dioxide Level 29.8 MEQ/L Anion Gap 7 MEQ/L Estimat Glomerular Filtration Rate 45 ML/MIN Imaging Last Impressions Chest X-Ray 12/27/17 0600 Signed Impressions: Service Date/Time: Wednesday, December 27, 2017 04:11 - CONCLUSION: No significant change. Bilateral effusions with apparent airspace disease in the lung bases. The findings may indicate congestive heart failure. Hari Stewart MD Abdomen/Pelvis CT 12/22/17 0000 Signed Impressions: Service Date/Time: Friday, December 22, 2017 12:13 - CONCLUSION: 1. There is diffuse prominent body anasarca 2. Small amount of free fluid deep in the pelvis with edema throughout the mesenteric fat. This is most likely related to patient's anasarca. 3. Bilateral pleural effusions. 4. Left ovarian cyst measuring 1.6 cm. 5. Gastrostomy tube in the stomach. Chinmay Espinoza MD Liver Ultrasound 12/11/17 0000 Signed Impressions: Service Date/Time: Monday, December 11, 2017 13:59 - CONCLUSION: 1. Liver is prominent with no focal mass lesions or fatty infiltration. 2. Trace fluid about the liver. 3. Bilateral pleural effusions. Mahendra Poe MD Chest CT 12/04/17 1154 Signed Impressions: Service Date/Time: Monday, December 04, 2017 12:43 - CONCLUSION: Probable mild congestive failure with trace pleural effusions. No evidence for mass. Jean-Paul Hoffmann MD FACR Head CT 12/04/17 1126 Signed Impressions: Service Date/Time: Monday, December 04, 2017 12:37 - CONCLUSION: Stable brain appearance. No acute intracranial findings Anam Rojas MD Neck Magnetic Resonance Angiography 12/04/17 0000 Signed Impressions: Service Date/Time: Monday, December 04, 2017 20:36 - CONCLUSION: 1. Mild plaque at the right carotid bulb/proximal internal carotid artery without significant stenosis. 2. Significant opacification of the aortic arch and origins of the great vessels is not present. These areas cannot be evaluated. Anam Donis MD Head Magnetic Resonance Angiography 12/04/17 0000 Signed Impressions: Service Date/Time: Monday, December 04, 2017 20:36 - CONCLUSION: No acute disease. Anam Donis MD Brain MRI 12/04/17 0000 Signed Impressions: Service Date/Time: Monday, December 04, 2017 20:36 - CONCLUSION: 1. Small punctate areas of signal abnormality in the posterior left temporal lobe which may represent small focal areas of acute infarction. 2. Several areas of signal abnormality in the basal ganglia and left posterior temporal lobes likely from prior hemorrhage. 3. Demyelination within the cerebral and pontine white matter likely from small vessel ischemic change. Anam Donis MD Procedures 5/3 Pending PEG 5/3 Pending Trach Objective Remarks General - elderly lady, trached, awake, ill-appearing HEENT - pupils equal, reactive, sclerae anicteric, neck supple, no neck vein distention, 8.0 Shiley tracheostomy CV - regular S1 and S2, no murmurs Chest - scattered coarse breath sounds b/l, no wheezes Abdomen - soft, nontender, distended, BS present, PEG tube - exit site clean Extremities - warm, 1+ edema over lower extremities, + peripheral pulses Neuro - awake, follows some commands, moves all extremities but she remains weak A/P Problem List: (1) Acute metabolic encephalopathy ICD Code: G93.41 - Metabolic encephalopathy Status: Acute (2) Paroxysmal atrial fibrillation with rapid ventricular response ICD Code: I48.0 - Paroxysmal atrial fibrillation Status: Acute (3) Lactic acidemia ICD Code: E87.2 - Acidosis Status: Acute (4) Cardiomyopathy ICD Code: I42.9 - Cardiomyopathy, unspecified Status: Chronic (5) Non-ST elevation [place] (NSTEMI) ICD Code: I21.4 - Non-ST elevation (NSTEMI) myocardial infarction Status: Acute (6) Severe sepsis ICD Code: A41.9 - Sepsis, unspecified organism; R65.20 - Severe sepsis without septic shock Status: Acute (7) Altered mental status ICD Code: R41.82 - Altered mental status, unspecified Status: Acute (8) Hypertension ICD Code: I10 - Hypertension Status: Chronic (9) LAI (acute kidney injury) ICD Code: N17.9 - Acute kidney failure, unspecified Status: Acute (10) Metabolic acidosis ICD Code: E87.2 - Acidosis Status: Acute Assessment and Plan Neuro/Psych: Acute encephalopathy - improved 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 Continue aspirin Acetaminophen 650 mg by tube every 6 hours as needed fever On alprazolam 1 mg by tube every 6 hours as needed anxiety Continue low-dose quetiapine 25 twice daily, continue oxycodone 5 mg every 6 hours CV: A. fib with RVR -currently in sinus rhythm Nonischemic cardiomyopathy, with reduced EF History of diastolic heart failure 03/30 NSTEMI Moderate MR History of essential hypertension Monitor HR and BP keep MAP>65mmHg On Hydralazine 25mg Q8 Echocardiogram revealed EF 55%. Bilateral atrial enlargement. Pulmonary arterial pressure 33 mmHg Previous echocardiogram 2013 revealed EF 55-60%. Grade 1 diastolic dysfunction. Continue atorvastatin 10 mg at night, ASA 81mg daily, Eliquis 5mg BID Resp: Vent dependent respiratory failure -status post tracheostomy 12/[address] Flor Continue with vent support keep sats >92% Bronchodilators, Vent bundle Pulm toilet, trach care GI: Status post PEG tube placement -Dr. Mendes 12/17 Hypoalbuminemia Acute blood loss anemia Hemorrhage around the PEG tube site On pantoprazole twice daily Tube feeds - Jevity 1.5@ 50 cc an hour per nutrition recommendations Docusate sodium/senna 1 tablet twice daily for bowel regimen : History of hematuria Monitor renal function, I/O's, electrolytes replacement per protocol Endo: SSI if needed for glycemic control Heme: Normocytic anemia Monitor CBC On Apixaban 5mg BID ID: Off all antibiotics. Monitor for signs of infections ( Fever, WBC) Check sputum cx, UA with cx if indicated ( T 100.7 last night) Evaluated by Dr. Amaro. Believe this was aspiration pneumonia. LP/cultures also see no growth. Blood cultures 12/12 revealed staph epi likely contaminant. All remainder microbiology has no growth MSK: PT evaluate and treat Access -Utilize peripheral IV. Prophylaxis -GI -Protonix 40mg daily -DVT -SCD, Eliquis 5mg BID Level 2 Problem Qualifiers (1) Altered mental status: (2) Hypertension: Qualified Codes: I10 - Essential (primary) hypertension Shahrzad Bautista MD December 29, 2017 07:21
[2017-12-29] MEDS: QUEtiapine FUMARATE 25 MG TAB PO SCH ×2 (07:31→19:37)
[2017-12-29] MEDS: ASPIRIN 81 MG CHEW TAB NG SCH (07:32)
[2017-12-29] MEDS: DOCUSATE SODIUM 50 MG/SENNA 8.6 MG TAB PO SCH ×2 (07:32→19:37)
[2017-12-29] MEDS: APIXABAN 5 MG TABLET PO SCH ×2 (07:32→19:37)
[2017-12-29] MEDS: CHLORHEXIDINE 0.12% (ORAL KIT) 15 ML CUP MT SCH ×2 (07:32→19:36)
[2017-12-29] MEDS: SODIUM CHLORIDE FLUSH BID IV FLUSH SCH ×2 (07:32→19:37)
[2017-12-29] MEDS: NYSTATIN 100,000 U/GM PWD 15 GM BTL TOPICAL SCH ×2 (07:33→19:37)
[2017-12-29 09:36] LABS: BACTERIA, URINE OCC /hpf; BILIRUBIN, URINE NEG (NEG); BLOOD, URINE NEG (NEG); GLUCOSE,URINE NEG (NEG); KETONE, URINE NEG (NEG); NITRITE,URINE NEG (NEG); PH, URINE 8.5 (5.0-8.5); TRANSITIONAL EPI CELLS, URINE 1 /hpf; URINE COLOR LIGHT-YELLOW (YELLW/STRAW); URINE LEUKOCYTE ESTERASE MOD (NEG)
[2017-12-29 12:54] LABS: HEMATOCRIT 23.1 % (35.0-46.0); HEMOGLOBIN 7.5 GM/DL (11.6-15.3)
[2017-12-30] VITALS (17 sets, daily range): BP systolic 111–179; BP diastolic 58–87; PULSE 84–106; RESP 16–46; TEMP 97.7–99.9; O2SAT 100
[2017-12-30] MEDS: PANTOPRAZOLE SODIUM 40 MG VIAL IV PUSH SCH ×2 (00:39→14:05)
[2017-12-30] MEDS: ALPRAZolam 1 MG TAB PO PRN ×3 (02:20→20:33)
[2017-12-30] MEDS: RESP: ALBUTEROL 2.5 MG/IPRATROPIUM 0.5 MG NEB (SCH) NEB ×4 (03:18→19:28)
[2017-12-30] MEDS: CHLORHEXIDINE GLUCONATE 2 % 1 PACK (2 CLOTHS) TOP SCH (04:00)
[2017-12-30] MEDS: ARTIFICIAL TEARS OPTH SOLN 15 ML BTL EACH EYE SCH ×3 (05:31→20:34)
[2017-12-30] MEDS: hydrALAZINE HCL 25 MG TAB PO SCH (05:31)
[2017-12-30 06:01] LABS: BASOPHIL % 0.5 % (0.0-2.0); EOSINOPHIL # 0.4 TH/MM3 (0-0.4); EOSINOPHIL % 6.1 % (0.0-4.0); HEMATOCRIT 22.1 % (35.0-46.0); HEMOGLOBIN 7.3 GM/DL (11.6-15.3); LYMPH % 17.5 % (9.0-44.0); MEAN CELL VOLUME 81.7 FL (80.0-100.0); MEAN PLATELET VOLUME 8.8 FL (7.0-11.0); MONO % 8.3 % (0.0-8.0); MONOCYTE # 0.5 TH/MM3 (0-0.9); NEUT % 67.6 % (16.0-70.0); PLATELET COUNT 190 TH/MM3 (150-450); RED CELL DISTRIBUTION WIDTH 13.5 % (11.6-17.2); WHITE BLOOD COUNT 5.9 TH/MM3 (4.0-11.0)
[2017-12-30 06:23] LABS: BICARBONATE 27.6 MEQ/L (21.0-32.0); CALCIUM 9.1 MG/DL (8.5-10.1); CREATININE 1.15 MG/DL (0.50-1.00)
--- NOTE | 2017-12-30 07:24 | HHI.CCPN ---
Subjective Remarks/Hospital Course 77-year-old female who is apparently very active at baseline, with past medical history significant for hypertension and previous TIA, tobacco abuse. She was seen last normal yesterday night at 7 PM. Her friends checked on her today morning and was found down, disoriented, staring off to the left, not answering questions. I am not able to get much further history from her. She has a fever of 101 in the ER, initially and then spiked to 103.7. ER workup included a CT scan of head which was negative for acute findings. Lab work showed a white count of 15.9 with left shift, lactic acid was 3.4, troponin was elevated at 8.7. Cardiology Dr. Meza was contacted aspirin was given patient was recommended to be started on IV heparin but was held for LP. Lumbar puncture was unremarkable nevertheless patient was started on meningitic doses of vancomycin and Rocephin. I have added ampicillin 2 g IV every 4 hours, and acyclovir 680 mg IV every 8 hours. I evaluated the patient in the ICU. Patient is severely altered tachypneic in moderate distress. Patient is aphasic with left gaze preference diminished movements of the right upper and lower extremity. A bedside echo shows reduced EF approximately 20-25%, global hypokinesis. Patient has no history of cardiomyopathy to my knowledge. At this time his stroke cannot be ruled out. Stat MRI MRA had been ordered. Due to altered mentation tachypnea and lack of airway protection patient was intubated and placed on mechanical ventilation 12/05: Remains intubated sedated. MRI brain showing small punctate areas of signal abnormality in the posterior left temporal lobe-possible small focal areas of acute infarction. Also several areas of signal abnormality in the basal ganglia and left posterior temporal lobes likely from prior hemorrhage. Demyelination within the cerebral and pontine white matter likely from small vessel ischemic change. Neurology consult. Stat EEG is pending. Fever is down trending afebrile now, developed atrial fibrillation with RVR started on amiodarone infusion. I have resumed heparin infusion. 12/06: Afebrile. Last evening the patient had decreased mat requiring additional pressor support vasopressin added to medication regimen and diminished urinary output. Patient was noted to have significant elevation in creatinine this a.m. Patient remains on vasopressin and norepinephrine vasopressor support. Patient continues on amiodarone infusion, plan to transition to p.o.. Sedation vacation initiated yesterday for EEG, per report patient following commands. Sedation vacation in progress at this time. Noticed slight elevation in WBC count, repeat urine culture pending. 12/07: Remains intubated sedated. Currently on IV heparin infusion, amiodarone infusion and vasopressin gtt to maintain MAP >65. Had developed acute kidney injury yesterday creatinine had bumped to 2. Urine output 550 mL in the last 24 hours. CMP today is pending. On sedation hold patient opens eyes weakly moves extremities do not follow commands. Remains severely encephalopathy 12/08: No events over the night. Patient remains encephalopathic, opens eyes to voice stimuli, but does not consistently follow commands. She remains on amiodarone and heparin infusions, no pressors. T-max of 99.6. I/O 2250/960, more than 11 L positive since admission if correctly documented. 12/09: Few episodes of A. fib with RVR over the night. T-max of 99.1. Patient remains intubated and sedated. No family present at bedside. 12/10: No events over the night. Patient is more awake this a.m. 30 with propofol. Good response to diuresis, T-max 100.1. In telemetry, patient currently in sinus rhythm and she continues to be on amiodarone infusion. 12/11: No events over the night. T-max of 100.2. On 35 off propofol this morning, arousable, following some commands. Diuresing well with Lasix. She remains in sinus rhythm. 12/12: Patient remains intubated and sedated, on propofol at 35. Yesterday patient tolerated CPAP trials for a little less than 2 hours. Afebrile, with a T-max of 99.8. I/O 2069/2099. Patient is arousable, tracking, following some commands. 12/13: No events over the night. T-max of 99.9. Patient is awake, on some sedation, following some commands. Urine dark with some sediment. 12/14: Patient developed worsening hematuria over the night therefore I stopped heparin drip this morning. Yesterday she tolerated CPAP for approximately 2 hours then she became tachypneic. Sedation was changed to Precedex and propofol was stopped, patient is awake and calm following commands. Still significant amount of sputum secretions. T-max of 99.1. I/O 2485/1125. 12/15: Tmax 100.2. The patient continues on Precedex infusion, with a RASS -1. No active signs of bleeding, no hematuria noted. Subcu heparin DVT prophylaxis instituted. 12/16: T-max 100.3. Patient awake and responsive on Precedex infusion. Discussion with family planned for tracheostomy and PEG placement, due to slow vent weaning. Patient continues on CPAP trials. Creatinine slightly more elevated today IV infusion increased to 100 cc/hr. 12/17: T-max 99.8. Patient tolerated CPAP trials for greater than 10 hours yesterday, on Precedex infusion. During the night the patient was more agitated , propofol infusion initiated, Precedex infusion discontinued. Plans for tracheostomy and PEG placement today. Patient continues on IV fluid 100 cc/ hour BMP pending. 12/18: Afebrile. No acute events overnight patient is postop day 1 status post tracheostomy and PEG placement tube feeds reinitiated no residuals noted will advance to goal rate today. Patient's creatinine has improved IV fluids discontinued at this time. CPAP trials to begin today. Subcu heparin resumed. 12/19: Afebrile. Patient currently on Precedex 0.8 mcgs/kg/hr. Patient is awake nodding yes and no to questions slightly anxious. The patient denies any pain. Xanax 1 mg every 6 hours as needed order. Sodium level noted to be trending slightly upward free water flushes 200 cc/8 hours initiated. 12/20: Continues on dexmedetomidine at 1.0 mcg/kg/hr. On CPAP 12 hours yesterday. Tolerated well currently on Zoloft. Tube feeds at goal. Positive BM. Awake and follows commands 4 SUBJECTIVE: 12/21: Continues on dexmedetomidine drip. Remains on CPAP. Will attempt to start quetiapine today 25 mg daily and schedule oxycodone 5 mg every 6 hours and attempt to wean off dexmedetomidine drip. Tolerating tube feeds at goal. Awake and follows commands. 12/22: No events over the night. T-max of 99.1. Patient in sinus rhythm. I/O 1764/675. Patient is awake, tolerating higher pressure support CPAP. 12/23: Still with some bleeding around the PEG tube site. Hemoglobin lower at this morning 1 unit PRBC was ordered. T-max of 99.7 over the night, 1200 mL's of urine output. Scheduled to undergo EGD today. On pantoprazole drip. 12/24: No events over the night. Bleeding around the PEG site stopped. Patient remains on pantoprazole drip and dexmedetomidine infusion. She is tolerating CPAP. T-max of 100.5 yesterday morning. Morning chest x-ray reviewed, cardiomegaly, trach is in place, still with bibasilar opacities not significantly changed. 12/25: Patient tolerated trach collar yesterday for approximately 7 hours. She was placed back on full support last night. Currently patient is back on trach collar, doing well. She is awake, on Precedex at 0.3. Afebrile over the night with a T-max of 99.2. She responded well to diuretics, with a urine output of 2.8 L over the last 24 hours. 12/26: No events over the night. T-max of 99.6. Patient remains on Precedex infusion. Responded well to diuretics, urine output more than 3 L over the last 24 hours. Patient yesterday tolerated T piece for approximately 6-7 hours and then she required full support. 12/27: No events over the night. Patient is currently on CPAP 07/21 tolerating well. She is awake, following some commands becomes easily agitated. 12/28 No events overnight. On Precedex drip 0.6. Afebrile. Tolerated CPAP all day yesterday. 12/29 Patient remains on ventilator via trach, T;100.7 last night. Off Precedex drip. 12/30 No events overnight. Tolerated CPAP x 5 hrs yesterday. Afebrile. Objective Vital Signs Date Time Temp Pulse Resp B/P (MAP) Pulse Ox O2 Delivery O2 Flow Rate FiO2 12/30/17 06:00 84 12/30/17 04:00 97.7 16 129/58 (81) 100 12/30/17 04:00 35 Intake and Output 12/30/17 12/30/17 12/31/17 08:00 16:00 00:00 Intake Total 632 ml Output Total 650 ml Balance -18 ml Result Diagram: 12/30/17 0453 12/30/17 0453 Other Results Laboratory Tests Test 12/29/17 07:45 12/29/17 12:20 12/30/17 04:53 Urine Color LIGHT-YELLOW Urine Turbidity HAZY Urine pH 8.5 Urine Specific [place] 1.010 Urine Protein TRACE mg/dL Urine Glucose (UA) NEG mg/dL Urine Ketones NEG mg/dL Urine Occult Blood NEG Urine Nitrite NEG Urine Bilirubin NEG Urine Urobilinogen LESS THAN 2.0 MG/DL Urine Leukocyte Esterase MOD Urine RBC 4 /hpf Urine WBC 40 /hpf Urine Transitional Epithelial Cells 1 /hpf Urine Bacteria OCC /hpf Urine Yeast with Hyphae OCC Urine Yeast (Budding) FEW Microscopic Urinalysis Comment CATH-CULTURE IND Hemoglobin 7.5 GM/DL 7.3 GM/DL Hematocrit 23.1 % 22.1 % White Blood Count 5.9 TH/MM3 Red Blood Count 2.70 MIL/MM3 Mean Corpuscular Volume 81.7 FL Mean Corpuscular Hemoglobin 27.0 PG Mean Corpuscular Hemoglobin Concent 33.0 % Red Cell Distribution Width 13.5 % Platelet Count 190 TH/MM3 Mean Platelet Volume 8.8 FL Neutrophils (%) (Auto) 67.6 % Lymphocytes (%) (Auto) 17.5 % Monocytes (%) (Auto) 8.3 % Eosinophils (%) (Auto) 6.1 % Basophils (%) (Auto) 0.5 % Neutrophils # (Auto) 4.0 TH/MM3 Lymphocytes # (Auto) 1.0 TH/MM3 Monocytes # (Auto) 0.5 TH/MM3 Eosinophils # (Auto) 0.4 TH/MM3 Basophils # (Auto) 0.0 TH/MM3 CBC Comment DIFF FINAL Differential Comment Blood Urea Nitrogen 22 MG/DL Creatinine 1.15 MG/DL Random Glucose 103 MG/DL Calcium Level 9.1 MG/DL Sodium Level 143 MEQ/L Potassium Level 4.0 MEQ/L Chloride Level 105 MEQ/L Carbon Dioxide Level 27.6 MEQ/L Anion Gap 10 MEQ/L Estimat Glomerular Filtration Rate 46 ML/MIN Imaging Last Impressions Chest X-Ray 12/27/17 0600 Signed Impressions: Service Date/Time: Wednesday, December 27, 2017 04:11 - CONCLUSION: No significant change. Bilateral effusions with apparent airspace disease in the lung bases. The findings may indicate congestive heart failure. Hari Stewart MD Abdomen/Pelvis CT 12/22/17 0000 Signed Impressions: Service Date/Time: Friday, December 22, 2017 12:13 - CONCLUSION: 1. There is diffuse prominent body anasarca 2. Small amount of free fluid deep in the pelvis with edema throughout the mesenteric fat. This is most likely related to patient's anasarca. 3. Bilateral pleural effusions. 4. Left ovarian cyst measuring 1.6 cm. 5. Gastrostomy tube in the stomach. Chinmay Espinoza MD Liver Ultrasound 12/11/17 0000 Signed Impressions: Service Date/Time: Monday, December 11, 2017 13:59 - CONCLUSION: 1. Liver is prominent with no focal mass lesions or fatty infiltration. 2. Trace fluid about the liver. 3. Bilateral pleural effusions. Mahendra Poe MD Chest CT 12/04/17 1154 Signed Impressions: Service Date/Time: Monday, December 04, 2017 12:43 - CONCLUSION: Probable mild congestive failure with trace pleural effusions. No evidence for mass. Jean-Paul Hoffmann MD FACR Head CT 12/04/17 1126 Signed Impressions: Service Date/Time: Monday, December 04, 2017 12:37 - CONCLUSION: Stable brain appearance. No acute intracranial findings Anam Rojas MD Neck Magnetic Resonance Angiography 12/04/17 0000 Signed Impressions: Service Date/Time: Monday, December 04, 2017 20:36 - CONCLUSION: 1. Mild plaque at the right carotid bulb/proximal internal carotid artery without significant stenosis. 2. Significant opacification of the aortic arch and origins of the great vessels is not present. These areas cannot be evaluated. Anam Donis MD Head Magnetic Resonance Angiography 12/04/17 0000 Signed Impressions: Service Date/Time: Monday, December 04, 2017 20:36 - CONCLUSION: No acute disease. Anam Donis MD Brain MRI 12/04/17 0000 Signed Impressions: Service Date/Time: Monday, December 04, 2017 20:36 - CONCLUSION: 1. Small punctate areas of signal abnormality in the posterior left temporal lobe which may represent small focal areas of acute infarction. 2. Several areas of signal abnormality in the basal ganglia and left posterior temporal lobes likely from prior hemorrhage. 3. Demyelination within the cerebral and pontine white matter likely from small vessel ischemic change. Anam Donis MD Procedures 5/3 Pending PEG 5/3 Pending Trach Objective Remarks General - elderly lady, trached, awake, ill-appearing HEENT - pupils equal, reactive, sclerae anicteric, neck supple, no neck vein distention, 8.0 Shiley tracheostomy CV - regular S1 and S2, no murmurs Chest - scattered coarse breath sounds b/l, no wheezes Abdomen - soft, nontender, distended, BS present, PEG tube - exit site clean Extremities - warm, 1+ edema over lower extremities, + peripheral pulses Neuro - awake, follows some commands, moves all extremities but she remains weak A/P Problem List: (1) Acute metabolic encephalopathy ICD Code: G93.41 - Metabolic encephalopathy Status: Acute (2) Paroxysmal atrial fibrillation with rapid ventricular response ICD Code: I48.0 - Paroxysmal atrial fibrillation Status: Acute (3) Lactic acidemia ICD Code: E87.2 - Acidosis Status: Acute (4) Cardiomyopathy ICD Code: I42.9 - Cardiomyopathy, unspecified Status: Chronic (5) Non-ST elevation HI (NSTEMI) ICD Code: I21.4 - Non-ST elevation (NSTEMI) myocardial infarction Status: Acute (6) Severe sepsis ICD Code: A41.9 - Sepsis, unspecified organism; R65.20 - Severe sepsis without septic shock Status: Acute (7) Altered mental status ICD Code: R41.82 - Altered mental status, unspecified Status: Acute (8) Hypertension ICD Code: I10 - Hypertension Status: Chronic (9) LAI (acute kidney injury) ICD Code: N17.9 - Acute kidney failure, unspecified Status: Acute (10) Metabolic acidosis ICD Code: E87.2 - Acidosis Status: Acute Assessment and Plan Neuro/Psych: Acute encephalopathy - improved 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 fib with RVR -currently in sinus rhythm Nonischemic cardiomyopathy, with reduced EF History of diastolic heart failure 03/30 NSTEMI Moderate MR History of essential hypertension Monitor HR and BP keep MAP>65mmHg Increase Hydralazine 50mg Q8 Echocardiogram revealed EF 55%. Bilateral atrial enlargement. Pulmonary arterial pressure 33 mmHg Previous echocardiogram 2013 revealed EF 55-60%. Grade 1 diastolic dysfunction. Continue atorvastatin 10 mg at night, ASA 81mg daily, Eliquis 5mg BID Resp: Vent dependent respiratory failure -status post tracheostomy 12/[address] Flor Continue with vent support keep sats >92% Bronchodilators, Vent bundle Pulm toilet, trach care CPAP trials as trev GI: Status post PEG tube placement -Dr. Mendes 12/17 Hypoalbuminemia Acute blood loss anemia Hemorrhage around the PEG tube site On pantoprazole twice daily Tube feeds - Jevity 1.5@ 50 cc an hour per nutrition recommendations Docusate sodium/senna 1 tablet twice daily for bowel regimen : History of hematuria Monitor renal function, I/O's, electrolytes replacement per protocol Diurese with Lasix 40mg x1 Endo: SSI if needed for glycemic control Heme: Normocytic anemia Monitor CBC On Apixaban 5mg BID ID: Off all antibiotics. Monitor for signs of infections ( Fever, WBC) follow up on sputum and urine cx from 12/[address] Amaro. Believe this was aspiration pneumonia. LP/cultures also see no growth. Blood cultures 12/12 revealed staph epi likely contaminant. All remainder microbiology has no growth MSK: PT evaluate and treat Access -Utilize peripheral IV. Prophylaxis -GI -Protonix 40mg daily -DVT -SCD, Eliquis 5mg BID Level 2 Problem Qualifiers (1) Altered mental status: (2) Hypertension: Qualified Codes: I10 - Essential (primary) hypertension Shahrzad Bautista MD December 30, 2017 07:24
[2017-12-30] MEDS ORDERED: FUROSEMIDE 40 MG/4 ML VIAL IV PUSH ONE (07:30)
[2017-12-30] MEDS: CHLORHEXIDINE 0.12% (ORAL KIT) 15 ML CUP MT SCH ×2 (08:21→20:33)
[2017-12-30] MEDS: SODIUM CHLORIDE FLUSH BID IV FLUSH SCH ×2 (08:22→20:33)
[2017-12-30] MEDS: QUEtiapine FUMARATE 25 MG TAB PO SCH ×2 (08:22→20:33)
[2017-12-30] MEDS: APIXABAN 5 MG TABLET PO SCH ×2 (08:22→20:33)
[2017-12-30] MEDS: DOCUSATE SODIUM 50 MG/SENNA 8.6 MG TAB PO SCH ×2 (08:22→20:34)
[2017-12-30] MEDS: ASPIRIN 81 MG CHEW TAB NG SCH (08:22)
[2017-12-30] MEDS: NYSTATIN 100,000 U/GM PWD 15 GM BTL TOPICAL SCH ×2 (08:23→20:34)
[2017-12-30] MEDS: hydrALAZINE HCL 50 MG TAB PO SCH ×2 (14:05→22:35)
[2017-12-30] MEDS: MORPHINE SULFATE 2 MG/ML SYRINGE IV PUSH PRN ×2 (14:07→18:22)
[2017-12-31] VITALS (15 sets, daily range): BP systolic 123–220; BP diastolic 78–143; PULSE 83–110; RESP 16–66; TEMP 98.9–100; O2SAT 99–100
[2017-12-31] MEDS: MORPHINE SULFATE 2 MG/ML SYRINGE IV PUSH PRN ×6 (00:08→16:58)
[2017-12-31] MEDS: PANTOPRAZOLE SODIUM 40 MG VIAL IV PUSH SCH ×2 (01:16→13:00)
[2017-12-31] MEDS: ACETAMINOPHEN/HYDROcodone 325 MG/5 MG TAB PO PRN (01:19)
[2017-12-31] MEDS: RESP: ALBUTEROL 2.5 MG/IPRATROPIUM 0.5 MG NEB (SCH) NEB ×4 (03:44→19:56)
[2017-12-31] MEDS: CHLORHEXIDINE GLUCONATE 2 % 1 PACK (2 CLOTHS) TOP SCH (04:00)
[2017-12-31] MEDS: ARTIFICIAL TEARS OPTH SOLN 15 ML BTL EACH EYE SCH ×3 (05:27→22:00)
[2017-12-31] MEDS: hydrALAZINE HCL 50 MG TAB PO SCH ×3 (05:27→22:03)
[2017-12-31 05:28] LABS: AUTOMATED NEUTROPHIL # 6.2 TH/MM3 (1.8-7.7); BASOPHIL % 0.4 % (0.0-2.0); EOSINOPHIL # 0.3 TH/MM3 (0-0.4); EOSINOPHIL % 4.1 % (0.0-4.0); HEMATOCRIT 22.2 % (35.0-46.0); HEMOGLOBIN 7.4 GM/DL (11.6-15.3); LYMPH % 14.4 % (9.0-44.0); LYMPHOCYTE # 1.2 TH/MM3 (1.0-4.8); MEAN CELL VOLUME 81.7 FL (80.0-100.0); MEAN CORPUSCULAR HEMOGLOBIN 27.3 PG (27.0-34.0); MEAN CORPUSCULAR HGB CONC 33.4 % (32.0-36.0); MONOCYTE # 0.6 TH/MM3 (0-0.9); NEUT % 74.1 % (16.0-70.0); PLATELET COUNT 212 TH/MM3 (150-450); RED BLOOD COUNT 2.71 MIL/MM3 (4.00-5.30); RED CELL DISTRIBUTION WIDTH 13.8 % (11.6-17.2); WHITE BLOOD COUNT 8.4 TH/MM3 (4.0-11.0)
[2017-12-31 05:52] LABS: BICARBONATE 29.2 MEQ/L (21.0-32.0); CALCIUM 9.8 MG/DL (8.5-10.1); CREATININE 1.15 MG/DL (0.50-1.00)
[2017-12-31] MEDS ORDERED: VANCOMYCIN INJ 1,000 MG in SODIUM CHLOR 0.9% 250 ML INJ 250 ML IV ONE (07:30)
--- NOTE | 2017-12-31 07:30 | HHI.CCPN ---
Subjective Remarks/Hospital Course 77-year-old female who is apparently very active at baseline, with past medical history significant for hypertension and previous TIA, tobacco abuse. She was seen last normal yesterday night at 7 PM. Her friends checked on her today morning and was found down, disoriented, staring off to the left, not answering questions. I am not able to get much further history from her. She has a fever of 101 in the ER, initially and then spiked to 103.7. ER workup included a CT scan of head which was negative for acute findings. Lab work showed a white count of 15.9 with left shift, lactic acid was 3.4, troponin was elevated at 8.7. Cardiology Dr. Meza was contacted aspirin was given patient was recommended to be started on IV heparin but was held for LP. Lumbar puncture was unremarkable nevertheless patient was started on meningitic doses of vancomycin and Rocephin. I have added ampicillin 2 g IV every 4 hours, and acyclovir 680 mg IV every 8 hours. I evaluated the patient in the ICU. Patient is severely altered tachypneic in moderate distress. Patient is aphasic with left gaze preference diminished movements of the right upper and lower extremity. A bedside echo shows reduced EF approximately 20-25%, global hypokinesis. Patient has no history of cardiomyopathy to my knowledge. At this time his stroke cannot be ruled out. Stat MRI MRA had been ordered. Due to altered mentation tachypnea and lack of airway protection patient was intubated and placed on mechanical ventilation 12/05: Remains intubated sedated. MRI brain showing small punctate areas of signal abnormality in the posterior left temporal lobe-possible small focal areas of acute infarction. Also several areas of signal abnormality in the basal ganglia and left posterior temporal lobes likely from prior hemorrhage. Demyelination within the cerebral and pontine white matter likely from small vessel ischemic change. Neurology consult. Stat EEG is pending. Fever is down trending afebrile now, developed atrial fibrillation with RVR started on amiodarone infusion. I have resumed heparin infusion. 12/06: Afebrile. Last evening the patient had decreased mat requiring additional pressor support vasopressin added to medication regimen and diminished urinary output. Patient was noted to have significant elevation in creatinine this a.m. Patient remains on vasopressin and norepinephrine vasopressor support. Patient continues on amiodarone infusion, plan to transition to p.o.. Sedation vacation initiated yesterday for EEG, per report patient following commands. Sedation vacation in progress at this time. Noticed slight elevation in WBC count, repeat urine culture pending. 12/07: Remains intubated sedated. Currently on IV heparin infusion, amiodarone infusion and vasopressin gtt to maintain MAP >65. Had developed acute kidney injury yesterday creatinine had bumped to 2. Urine output 550 mL in the last 24 hours. CMP today is pending. On sedation hold patient opens eyes weakly moves extremities do not follow commands. Remains severely encephalopathy 12/08: No events over the night. Patient remains encephalopathic, opens eyes to voice stimuli, but does not consistently follow commands. She remains on amiodarone and heparin infusions, no pressors. T-max of 99.6. I/O 2250/960, more than 11 L positive since admission if correctly documented. 12/09: Few episodes of A. fib with RVR over the night. T-max of 99.1. Patient remains intubated and sedated. No family present at bedside. 12/10: No events over the night. Patient is more awake this a.m. 30 with propofol. Good response to diuresis, T-max 100.1. In telemetry, patient currently in sinus rhythm and she continues to be on amiodarone infusion. 12/11: No events over the night. T-max of 100.2. On 35 off propofol this morning, arousable, following some commands. Diuresing well with Lasix. She remains in sinus rhythm. 12/12: Patient remains intubated and sedated, on propofol at 35. Yesterday patient tolerated CPAP trials for a little less than 2 hours. Afebrile, with a T-max of 99.8. I/O 2069/2099. Patient is arousable, tracking, following some commands. 12/13: No events over the night. T-max of 99.9. Patient is awake, on some sedation, following some commands. Urine dark with some sediment. 12/14: Patient developed worsening hematuria over the night therefore I stopped heparin drip this morning. Yesterday she tolerated CPAP for approximately 2 hours then she became tachypneic. Sedation was changed to Precedex and propofol was stopped, patient is awake and calm following commands. Still significant amount of sputum secretions. T-max of 99.1. I/O 2485/1125. 12/15: Tmax 100.2. The patient continues on Precedex infusion, with a RASS -1. No active signs of bleeding, no hematuria noted. Subcu heparin DVT prophylaxis instituted. 12/16: T-max 100.3. Patient awake and responsive on Precedex infusion. Discussion with family planned for tracheostomy and PEG placement, due to slow vent weaning. Patient continues on CPAP trials. Creatinine slightly more elevated today IV infusion increased to 100 cc/hr. 12/17: T-max 99.8. Patient tolerated CPAP trials for greater than 10 hours yesterday, on Precedex infusion. During the night the patient was more agitated , propofol infusion initiated, Precedex infusion discontinued. Plans for tracheostomy and PEG placement today. Patient continues on IV fluid 100 cc/ hour BMP pending. 12/18: Afebrile. No acute events overnight patient is postop day 1 status post tracheostomy and PEG placement tube feeds reinitiated no residuals noted will advance to goal rate today. Patient's creatinine has improved IV fluids discontinued at this time. CPAP trials to begin today. Subcu heparin resumed. 12/19: Afebrile. Patient currently on Precedex 0.8 mcgs/kg/hr. Patient is awake nodding yes and no to questions slightly anxious. The patient denies any pain. Xanax 1 mg every 6 hours as needed order. Sodium level noted to be trending slightly upward free water flushes 200 cc/8 hours initiated. 12/20: Continues on dexmedetomidine at 1.0 mcg/kg/hr. On CPAP 12 hours yesterday. Tolerated well currently on Zoloft. Tube feeds at goal. Positive BM. Awake and follows commands 4 SUBJECTIVE: 12/21: Continues on dexmedetomidine drip. Remains on CPAP. Will attempt to start quetiapine today 25 mg daily and schedule oxycodone 5 mg every 6 hours and attempt to wean off dexmedetomidine drip. Tolerating tube feeds at goal. Awake and follows commands. 12/22: No events over the night. T-max of 99.1. Patient in sinus rhythm. I/O 1764/675. Patient is awake, tolerating higher pressure support CPAP. 12/23: Still with some bleeding around the PEG tube site. Hemoglobin lower at this morning 1 unit PRBC was ordered. T-max of 99.7 over the night, 1200 mL's of urine output. Scheduled to undergo EGD today. On pantoprazole drip. 12/24: No events over the night. Bleeding around the PEG site stopped. Patient remains on pantoprazole drip and dexmedetomidine infusion. She is tolerating CPAP. T-max of 100.5 yesterday morning. Morning chest x-ray reviewed, cardiomegaly, trach is in place, still with bibasilar opacities not significantly changed. 12/25: Patient tolerated trach collar yesterday for approximately 7 hours. She was placed back on full support last night. Currently patient is back on trach collar, doing well. She is awake, on Precedex at 0.3. Afebrile over the night with a T-max of 99.2. She responded well to diuretics, with a urine output of 2.8 L over the last 24 hours. 12/26: No events over the night. T-max of 99.6. Patient remains on Precedex infusion. Responded well to diuretics, urine output more than 3 L over the last 24 hours. Patient yesterday tolerated T piece for approximately 6-7 hours and then she required full support. 12/27: No events over the night. Patient is currently on CPAP 07/21 tolerating well. She is awake, following some commands becomes easily agitated. 12/28 No events overnight. On Precedex drip 0.6. Afebrile. Tolerated CPAP all day yesterday. 12/29 Patient remains on ventilator via trach, T;100.7 last night. Off Precedex drip. 12/30 No events overnight. Tolerated CPAP x 5 hrs yesterday. Afebrile. 12/31 Patient remains on ventilator via trach, T: 100.0 @midnight, hypertensive. Objective Vital Signs Date Time Temp Pulse Resp B/P (MAP) Pulse Ox O2 Delivery O2 Flow Rate FiO2 12/31/17 06:00 93 12/31/17 04:00 99.3 66 139/104 (116) 100 12/31/17 04:00 35 Intake and Output 12/31/17 12/31/17 12/31/17 07:59 15:59 23:59 Intake Total 536 ml Output Total 475 ml Balance 61 ml Result Diagram: 12/31/17 0430 12/31/17 0430 Other Results Laboratory Tests Test 12/31/17 04:30 White Blood Count 8.4 TH/MM3 Red Blood Count 2.71 MIL/MM3 Hemoglobin 7.4 GM/DL Hematocrit 22.2 % Mean Corpuscular Volume 81.7 FL Mean Corpuscular Hemoglobin 27.3 PG Mean Corpuscular Hemoglobin Concent 33.4 % Red Cell Distribution Width 13.8 % Platelet Count 212 TH/MM3 Mean Platelet Volume 9.0 FL Neutrophils (%) (Auto) 74.1 % Lymphocytes (%) (Auto) 14.4 % Monocytes (%) (Auto) 7.0 % Eosinophils (%) (Auto) 4.1 % Basophils (%) (Auto) 0.4 % Neutrophils # (Auto) 6.2 TH/MM3 Lymphocytes # (Auto) 1.2 TH/MM3 Monocytes # (Auto) 0.6 TH/MM3 Eosinophils # (Auto) 0.3 TH/MM3 Basophils # (Auto) 0.0 TH/MM3 CBC Comment DIFF FINAL Differential Comment Blood Urea Nitrogen 20 MG/DL Creatinine 1.15 MG/DL Random Glucose 105 MG/DL Calcium Level 9.8 MG/DL Sodium Level 142 MEQ/L Potassium Level 3.6 MEQ/L Chloride Level 102 MEQ/L Carbon Dioxide Level 29.2 MEQ/L Anion Gap 11 MEQ/L Estimat Glomerular Filtration Rate 46 ML/MIN Imaging Last Impressions Chest X-Ray 12/27/17 0600 Signed Impressions: Service Date/Time: Wednesday, December 27, 2017 04:11 - CONCLUSION: No significant change. Bilateral effusions with apparent airspace disease in the lung bases. The findings may indicate congestive heart failure. Hari Stewart MD Abdomen/Pelvis CT 12/22/17 0000 Signed Impressions: Service Date/Time: Friday, December 22, 2017 12:13 - CONCLUSION: 1. There is diffuse prominent body anasarca 2. Small amount of free fluid deep in the pelvis with edema throughout the mesenteric fat. This is most likely related to patient's anasarca. 3. Bilateral pleural effusions. 4. Left ovarian cyst measuring 1.6 cm. 5. Gastrostomy tube in the stomach. Chinmay Espinoza MD Liver Ultrasound 12/11/17 0000 Signed Impressions: Service Date/Time: Monday, December 11, 2017 13:59 - CONCLUSION: 1. Liver is prominent with no focal mass lesions or fatty infiltration. 2. Trace fluid about the liver. 3. Bilateral pleural effusions. Mahendra Poe MD Chest CT 12/04/17 1154 Signed Impressions: Service Date/Time: Monday, December 04, 2017 12:43 - CONCLUSION: Probable mild congestive failure with trace pleural effusions. No evidence for mass. Jean-Paul Hoffmann MD FACR Head CT 12/04/17 1126 Signed Impressions: Service Date/Time: Monday, December 04, 2017 12:37 - CONCLUSION: Stable brain appearance. No acute intracranial findings Anam Rojas MD Neck Magnetic Resonance Angiography 12/04/17 0000 Signed Impressions: Service Date/Time: Monday, December 04, 2017 20:36 - CONCLUSION: 1. Mild plaque at the right carotid bulb/proximal internal carotid artery without significant stenosis. 2. Significant opacification of the aortic arch and origins of the great vessels is not present. These areas cannot be evaluated. Anam Donis MD Head Magnetic Resonance Angiography 12/04/17 0000 Signed Impressions: Service Date/Time: Monday, December 04, 2017 20:36 - CONCLUSION: No acute disease. Anam Donis MD Brain MRI 12/04/17 0000 Signed Impressions: Service Date/Time: Monday, December 04, 2017 20:36 - CONCLUSION: 1. Small punctate areas of signal abnormality in the posterior left temporal lobe which may represent small focal areas of acute infarction. 2. Several areas of signal abnormality in the basal ganglia and left posterior temporal lobes likely from prior hemorrhage. 3. Demyelination within the cerebral and pontine white matter likely from small vessel ischemic change. Anam Donis MD Objective Remarks General - elderly lady, trached, awake, ill-appearing HEENT - pupils equal, reactive, sclerae anicteric, neck supple, no neck vein distention, 8.0 Shiley tracheostomy CV - regular S1 and S2, no murmurs Chest - scattered coarse breath sounds b/l, no wheezes Abdomen - soft, nontender, distended, BS present, PEG tube - exit site clean Extremities - warm, 1+ edema over lower extremities, + peripheral pulses Neuro - awake, follows some commands, moves all extremities but she remains weak A/P Problem List: (1) Acute metabolic encephalopathy ICD Code: G93.41 - Metabolic encephalopathy Status: Acute (2) Paroxysmal atrial fibrillation with rapid ventricular response ICD Code: I48.0 - Paroxysmal atrial fibrillation Status: Acute (3) Lactic acidemia ICD Code: E87.2 - Acidosis Status: Acute (4) Cardiomyopathy ICD Code: I42.9 - Cardiomyopathy, unspecified Status: Chronic (5) Non-ST elevation HI (NSTEMI) ICD Code: I21.4 - Non-ST elevation (NSTEMI) myocardial infarction Status: Acute (6) Severe sepsis ICD Code: A41.9 - Sepsis, unspecified organism; R65.20 - Severe sepsis without septic shock Status: Acute (7) Altered mental status ICD Code: R41.82 - Altered mental status, unspecified Status: Acute (8) Hypertension ICD Code: I10 - Hypertension Status: Chronic (9) LAI (acute kidney injury) ICD Code: N17.9 - Acute kidney failure, unspecified Status: Acute (10) Metabolic acidosis ICD Code: E87.2 - Acidosis Status: Acute Assessment and Plan Neuro/Psych: Acute encephalopathy - improved 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 fib with RVR -currently in sinus rhythm Nonischemic cardiomyopathy, with reduced EF History of diastolic heart failure 03/30 NSTEMI Moderate MR History of essential hypertension Monitor HR and BP keep MAP>65mmHg On Hydralazine 50mg Q8, add Lopressor 50mg Q12 for BP control Echocardiogram revealed EF 55%. Bilateral atrial enlargement. Pulmonary arterial pressure 33 mmHg Previous echocardiogram 2013 revealed EF 55-60%. Grade 1 diastolic dysfunction. Continue atorvastatin 10 mg at night, ASA 81mg daily, Eliquis 5mg BID Resp: Vent dependent respiratory failure -status post tracheostomy 12/[address] Flor Continue with vent support keep sats >92% Bronchodilators, Vent bundle Pulm toilet, trach care CPAP trials as trev Check CXR GI: Status post PEG tube placement -Dr. Mendes 12/17 Hypoalbuminemia Acute blood loss anemia Hemorrhage around the PEG tube site On pantoprazole twice daily Tube feeds - Jevity 1.5@ 50 cc an hour per nutrition recommendations Docusate sodium/senna 1 tablet twice daily for bowel regimen : History of hematuria Monitor renal function, I/O's, electrolytes replacement per protocol Endo: SSI if needed for glycemic control Heme: Normocytic anemia Monitor CBC On Apixaban 5mg BID ID: Monitor for signs of infections ( Fever, WBC) sputum cx: normal resp angelika urine cx from 12/29: [facility], [facility]icans, place on Diflucan, Zyvox Evaluated by Dr. Amaro. Believe this was aspiration pneumonia. LP/cultures also see no growth. Blood cultures 12/12 revealed staph epi likely contaminant. All remainder microbiology has no growth MSK: PT evaluate and treat Access -Utilize peripheral IV. Prophylaxis -GI -Protonix 40mg daily -DVT -SCD, Eliquis 5mg BID Level 2 Problem Qualifiers (1) Altered mental status: (2) Hypertension: Qualified Codes: I10 - Essential (primary) hypertension Shahrzad Bautista MD December 31, 2017 07:30
--- NOTE | 2017-12-31 07:59 | RADRPT ---
EXAM DATE/TIME: 12/31/2017 07:37 [facility] COMPARISON: No previous studies available for comparison. INDICATIONS : Respiratory distress. MEDICAL HISTORY : Hypertension. Stroke. SURGICAL HISTORY : PEG tube ENCOUNTER: Subsequent ACUITY: 2 weeks PAIN SCORE: Non-responsive. LOCATION: Bilateral chest FINDINGS: There is cardiomegaly and a tracheostomy tube identified. Bilateral effusions and basilar consolidati on again seen. Osseous structures are intact. CONCLUSION: No significant change has occurred. Philippe Peters MD on December 31, 2017 at 7:56 Board Certified Radiologist. This report was verified electronically.
[2017-12-31] MEDS: CHLORHEXIDINE 0.12% (ORAL KIT) 15 ML CUP MT SCH (08:00)
[2017-12-31] MEDS: SODIUM CHLORIDE FLUSH BID IV FLUSH SCH (09:00)
[2017-12-31] MEDS: NYSTATIN 100,000 U/GM PWD 15 GM BTL TOPICAL SCH ×2 (09:00→20:42)
[2017-12-31] MEDS: METOPROLOL TARTRATE 50 MG TAB PO SCH ×2 (09:02→20:41)
[2017-12-31] MEDS: DOCUSATE SODIUM 50 MG/SENNA 8.6 MG TAB PO SCH ×2 (09:03→20:41)
[2017-12-31] MEDS: QUEtiapine FUMARATE 25 MG TAB PO SCH ×2 (09:03→20:41)
[2017-12-31] MEDS: ASPIRIN 81 MG CHEW TAB NG SCH (09:03)
[2017-12-31] MEDS: APIXABAN 5 MG TABLET PO SCH ×2 (09:03→20:41)
[2017-12-31] MEDS: FLUCONAZOLE 100 MG TAB PO SCH (09:03)
[2017-12-31] MEDS: ALPRAZolam 1 MG TAB PO PRN ×3 (09:08→21:58)
[2018-01-01] VITALS (17 sets, daily range): BP systolic 131–214; BP diastolic 58–82; PULSE 61–91; RESP 16–35; TEMP 98–100.1; O2SAT 100
[2018-01-01] MEDS: PANTOPRAZOLE SODIUM 40 MG VIAL IV PUSH SCH ×2 (00:40→13:00)
[2018-01-01] MEDS: MORPHINE SULFATE 4 MG/ML INJ IV PUSH PRN ×7 (00:40→23:56)
[2018-01-01] MEDS: RESP: ALBUTEROL 2.5 MG/IPRATROPIUM 0.5 MG NEB (SCH) NEB ×2 (03:34→08:46)
[2018-01-01] MEDS: CHLORHEXIDINE GLUCONATE 2 % 1 PACK (2 CLOTHS) TOP SCH (03:38)
[2018-01-01 04:33] LABS: AUTOMATED NEUTROPHIL # 5.4 TH/MM3 (1.8-7.7); BASOPHIL % 0.6 % (0.0-2.0); EOSINOPHIL # 0.4 TH/MM3 (0-0.4); EOSINOPHIL % 5.5 % (0.0-4.0); HEMATOCRIT 21.5 % (35.0-46.0); HEMOGLOBIN 7.2 GM/DL (11.6-15.3); LYMPH % 14.4 % (9.0-44.0); LYMPHOCYTE # 1.1 TH/MM3 (1.0-4.8); MEAN CELL VOLUME 80.9 FL (80.0-100.0); MEAN CORPUSCULAR HGB CONC 33.4 % (32.0-36.0); MEAN PLATELET VOLUME 9.3 FL (7.0-11.0); MONO % 8.2 % (0.0-8.0); MONOCYTE # 0.6 TH/MM3 (0-0.9); NEUT % 71.3 % (16.0-70.0); PLATELET COUNT 194 TH/MM3 (150-450); RED BLOOD COUNT 2.66 MIL/MM3 (4.00-5.30); RED CELL DISTRIBUTION WIDTH 13.6 % (11.6-17.2); WHITE BLOOD COUNT 7.6 TH/MM3 (4.0-11.0)
[2018-01-01] MEDS: hydrALAZINE HCL 50 MG TAB PO SCH ×3 (04:54→22:17)
[2018-01-01] MEDS: ALPRAZolam 1 MG TAB PO PRN ×2 (04:54→09:45)
[2018-01-01] MEDS: ARTIFICIAL TEARS OPTH SOLN 15 ML BTL EACH EYE SCH ×3 (04:54→22:17)
[2018-01-01 05:01] LABS: ALBUMIN 2.5 GM/DL (3.4-5.0); AST (GOT) 14 U/L (15-37); BICARBONATE 31.3 MEQ/L (21.0-32.0); BLOOD UREA NITROGEN 22 MG/DL (7-18); CALCIUM 9.4 MG/DL (8.5-10.1); CHLORIDE 103 MEQ/L (98-107); CREATININE 1.22 MG/DL (0.50-1.00); GLOMERULAR FILTRATION RATE 43 ML/MIN (>89); GLUCOSE,RANDOM 94 MG/DL (74-106); SODIUM (NA) 141 MEQ/L (136-145)
[2018-01-01 05:06] LABS: ALKALINE PHOSPHATASE 124 U/L (45-117); ALT (GPT) 17 U/L (10-53); TOTAL BILIRUBIN ADULT 0.3 MG/DL (0.2-1.0); TOTAL PROTEIN 5.9 GM/DL (6.4-8.2)
[2018-01-01] MEDS ORDERED: LABETALOL HCL 100 MG/20 ML VIAL IV PUSH PRN (05:15)
--- NOTE | 2018-01-01 07:29 | HHI.CCPN ---
Subjective Remarks/Hospital Course 77-year-old female who is apparently very active at baseline, with past medical history significant for hypertension and previous TIA, tobacco abuse. She was seen last normal yesterday night at 7 PM. Her friends checked on her today morning and was found down, disoriented, staring off to the left, not answering questions. I am not able to get much further history from her. She has a fever of 101 in the ER, initially and then spiked to 103.7. ER workup included a CT scan of head which was negative for acute findings. Lab work showed a white count of 15.9 with left shift, lactic acid was 3.4, troponin was elevated at 8.7. Cardiology Dr. Meza was contacted aspirin was given patient was recommended to be started on IV heparin but was held for LP. Lumbar puncture was unremarkable nevertheless patient was started on meningitic doses of vancomycin and Rocephin. I have added ampicillin 2 g IV every 4 hours, and acyclovir 680 mg IV every 8 hours. I evaluated the patient in the ICU. Patient is severely altered tachypneic in moderate distress. Patient is aphasic with left gaze preference diminished movements of the right upper and lower extremity. A bedside echo shows reduced EF approximately 20-25%, global hypokinesis. Patient has no history of cardiomyopathy to my knowledge. At this time his stroke cannot be ruled out. Stat MRI MRA had been ordered. Due to altered mentation tachypnea and lack of airway protection patient was intubated and placed on mechanical ventilation 12/05: Remains intubated sedated. MRI brain showing small punctate areas of signal abnormality in the posterior left temporal lobe-possible small focal areas of acute infarction. Also several areas of signal abnormality in the basal ganglia and left posterior temporal lobes likely from prior hemorrhage. Demyelination within the cerebral and pontine white matter likely from small vessel ischemic change. Neurology consult. Stat EEG is pending. Fever is down trending afebrile now, developed atrial fibrillation with RVR started on amiodarone infusion. I have resumed heparin infusion. 12/06: Afebrile. Last evening the patient had decreased mat requiring additional pressor support vasopressin added to medication regimen and diminished urinary output. Patient was noted to have significant elevation in creatinine this a.m. Patient remains on vasopressin and norepinephrine vasopressor support. Patient continues on amiodarone infusion, plan to transition to p.o.. Sedation vacation initiated yesterday for EEG, per report patient following commands. Sedation vacation in progress at this time. Noticed slight elevation in WBC count, repeat urine culture pending. 12/07: Remains intubated sedated. Currently on IV heparin infusion, amiodarone infusion and vasopressin gtt to maintain MAP >65. Had developed acute kidney injury yesterday creatinine had bumped to 2. Urine output 550 mL in the last 24 hours. CMP today is pending. On sedation hold patient opens eyes weakly moves extremities do not follow commands. Remains severely encephalopathy 12/08: No events over the night. Patient remains encephalopathic, opens eyes to voice stimuli, but does not consistently follow commands. She remains on amiodarone and heparin infusions, no pressors. T-max of 99.6. I/O 2250/960, more than 11 L positive since admission if correctly documented. 12/09: Few episodes of A. fib with RVR over the night. T-max of 99.1. Patient remains intubated and sedated. No family present at bedside. 12/10: No events over the night. Patient is more awake this a.m. 30 with propofol. Good response to diuresis, T-max 100.1. In telemetry, patient currently in sinus rhythm and she continues to be on amiodarone infusion. 12/11: No events over the night. T-max of 100.2. On 35 off propofol this morning, arousable, following some commands. Diuresing well with Lasix. She remains in sinus rhythm. 12/12: Patient remains intubated and sedated, on propofol at 35. Yesterday patient tolerated CPAP trials for a little less than 2 hours. Afebrile, with a T-max of 99.8. I/O 2069/2099. Patient is arousable, tracking, following some commands. 12/13: No events over the night. T-max of 99.9. Patient is awake, on some sedation, following some commands. Urine dark with some sediment. 12/14: Patient developed worsening hematuria over the night therefore I stopped heparin drip this morning. Yesterday she tolerated CPAP for approximately 2 hours then she became tachypneic. Sedation was changed to Precedex and propofol was stopped, patient is awake and calm following commands. Still significant amount of sputum secretions. T-max of 99.1. I/O 2485/1125. 12/15: Tmax 100.2. The patient continues on Precedex infusion, with a RASS -1. No active signs of bleeding, no hematuria noted. Subcu heparin DVT prophylaxis instituted. 12/16: T-max 100.3. Patient awake and responsive on Precedex infusion. Discussion with family planned for tracheostomy and PEG placement, due to slow vent weaning. Patient continues on CPAP trials. Creatinine slightly more elevated today IV infusion increased to 100 cc/hr. 12/17: T-max 99.8. Patient tolerated CPAP trials for greater than 10 hours yesterday, on Precedex infusion. During the night the patient was more agitated , propofol infusion initiated, Precedex infusion discontinued. Plans for tracheostomy and PEG placement today. Patient continues on IV fluid 100 cc/ hour BMP pending. 12/18: Afebrile. No acute events overnight patient is postop day 1 status post tracheostomy and PEG placement tube feeds reinitiated no residuals noted will advance to goal rate today. Patient's creatinine has improved IV fluids discontinued at this time. CPAP trials to begin today. Subcu heparin resumed. 12/19: Afebrile. Patient currently on Precedex 0.8 mcgs/kg/hr. Patient is awake nodding yes and no to questions slightly anxious. The patient denies any pain. Xanax 1 mg every 6 hours as needed order. Sodium level noted to be trending slightly upward free water flushes 200 cc/8 hours initiated. 12/20: Continues on dexmedetomidine at 1.0 mcg/kg/hr. On CPAP 12 hours yesterday. Tolerated well currently on Zoloft. Tube feeds at goal. Positive BM. Awake and follows commands 4 SUBJECTIVE: 12/21: Continues on dexmedetomidine drip. Remains on CPAP. Will attempt to start quetiapine today 25 mg daily and schedule oxycodone 5 mg every 6 hours and attempt to wean off dexmedetomidine drip. Tolerating tube feeds at goal. Awake and follows commands. 12/22: No events over the night. T-max of 99.1. Patient in sinus rhythm. I/O 1764/675. Patient is awake, tolerating higher pressure support CPAP. 12/23: Still with some bleeding around the PEG tube site. Hemoglobin lower at this morning 1 unit PRBC was ordered. T-max of 99.7 over the night, 1200 mL's of urine output. Scheduled to undergo EGD today. On pantoprazole drip. 12/24: No events over the night. Bleeding around the PEG site stopped. Patient remains on pantoprazole drip and dexmedetomidine infusion. She is tolerating CPAP. T-max of 100.5 yesterday morning. Morning chest x-ray reviewed, cardiomegaly, trach is in place, still with bibasilar opacities not significantly changed. 12/25: Patient tolerated trach collar yesterday for approximately 7 hours. She was placed back on full support last night. Currently patient is back on trach collar, doing well. She is awake, on Precedex at 0.3. Afebrile over the night with a T-max of 99.2. She responded well to diuretics, with a urine output of 2.8 L over the last 24 hours. 12/26: No events over the night. T-max of 99.6. Patient remains on Precedex infusion. Responded well to diuretics, urine output more than 3 L over the last 24 hours. Patient yesterday tolerated T piece for approximately 6-7 hours and then she required full support. 12/27: No events over the night. Patient is currently on CPAP 07/21 tolerating well. She is awake, following some commands becomes easily agitated. 12/28 No events overnight. On Precedex drip 0.6. Afebrile. Tolerated CPAP all day yesterday. 12/29 Patient remains on ventilator via trach, T;100.7 last night. Off Precedex drip. 12/30 No events overnight. Tolerated CPAP x 5 hrs yesterday. Afebrile. 12/31 Patient remains on ventilator via trach, T: 100.0 @midnight, hypertensive. 01/01 No events overnight. Afebrile. Objective Vital Signs Date Time Temp Pulse Resp B/P (MAP) Pulse Ox O2 Delivery O2 Flow Rate FiO2 01/01/18 06:00 74 01/01/18 04:00 35 01/01/18 04:00 98.0 33 214/82 (126) 100 Intake and Output 01/01/18 01/01/18 01/02/18 08:00 16:00 00:00 Intake Total 660 ml Output Total 500 ml Balance 160 ml Result Diagram: 01/01/18 0315 01/01/18 0315 Other Results Laboratory Tests Test 12/31/17 19:47 01/01/18 03:15 Activated Partial Thromboplast Time 34.1 SEC White Blood Count 7.6 TH/MM3 Red Blood Count 2.66 MIL/MM3 Hemoglobin 7.2 GM/DL Hematocrit 21.5 % Mean Corpuscular Volume 80.9 FL Mean Corpuscular Hemoglobin 27.0 PG Mean Corpuscular Hemoglobin Concent 33.4 % Red Cell Distribution Width 13.6 % Platelet Count 194 TH/MM3 Mean Platelet Volume 9.3 FL Neutrophils (%) (Auto) 71.3 % Lymphocytes (%) (Auto) 14.4 % Monocytes (%) (Auto) 8.2 % Eosinophils (%) (Auto) 5.5 % Basophils (%) (Auto) 0.6 % Neutrophils # (Auto) 5.4 TH/MM3 Lymphocytes # (Auto) 1.1 TH/MM3 Monocytes # (Auto) 0.6 TH/MM3 Eosinophils # (Auto) 0.4 TH/MM3 Basophils # (Auto) 0.0 TH/MM3 CBC Comment DIFF FINAL Differential Comment Blood Urea Nitrogen 22 MG/DL Creatinine 1.22 MG/DL Random Glucose 94 MG/DL Total Protein 5.9 GM/DL Albumin 2.5 GM/DL Calcium Level 9.4 MG/DL Alkaline Phosphatase 124 U/L Aspartate Amino Transf (AST/SGOT) 14 U/L Alanine Aminotransferase (ALT/SGPT) 17 U/L Total Bilirubin 0.3 MG/DL Sodium Level 141 MEQ/L Potassium Level 4.0 MEQ/L Chloride Level 103 MEQ/L Carbon Dioxide Level 31.3 MEQ/L Anion Gap 7 MEQ/L Estimat Glomerular Filtration Rate 43 ML/MIN Imaging Last Impressions Chest X-Ray 12/31/17 0000 Signed Impressions: Service Date/Time: December 07:37 - CONCLUSION: No significant change has occurred. Philippe Peters MD Abdomen/Pelvis CT 12/22/17 0000 Signed Impressions: Service Date/Time: Friday, December 22, 2017 12:13 - CONCLUSION: 1. There is diffuse prominent body anasarca 2. Small amount of free fluid deep in the pelvis with edema throughout the mesenteric fat. This is most likely related to patient's anasarca. 3. Bilateral pleural effusions. 4. Left ovarian cyst measuring 1.6 cm. 5. Gastrostomy tube in the stomach. Chinmay Espinoza MD Liver Ultrasound 12/11/17 0000 Signed Impressions: Service Date/Time: Monday, December 11, 2017 13:59 - CONCLUSION: 1. Liver is prominent with no focal mass lesions or fatty infiltration. 2. Trace fluid about the liver. 3. Bilateral pleural effusions. Mahendra Poe MD Chest CT 12/04/17 1154 Signed Impressions: Service Date/Time: Monday, December 04, 2017 12:43 - CONCLUSION: Probable mild congestive failure with trace pleural effusions. No evidence for mass. Jean-Paul Hoffmann MD FACR Head CT 12/04/17 1126 Signed Impressions: Service Date/Time: Monday, December 04, 2017 12:37 - CONCLUSION: Stable brain appearance. No acute intracranial findings Anam Rojas MD Neck Magnetic Resonance Angiography 12/04/17 0000 Signed Impressions: Service Date/Time: Monday, December 04, 2017 20:36 - CONCLUSION: 1. Mild plaque at the right carotid bulb/proximal internal carotid artery without significant stenosis. 2. Significant opacification of the aortic arch and origins of the great vessels is not present. These areas cannot be evaluated. Anam Donis MD Head Magnetic Resonance Angiography 12/04/17 0000 Signed Impressions: Service Date/Time: Monday, December 04, 2017 20:36 - CONCLUSION: No acute disease. Anam Donis MD Brain MRI 12/04/17 0000 Signed Impressions: Service Date/Time: Monday, December 04, 2017 20:36 - CONCLUSION: 1. Small punctate areas of signal abnormality in the posterior left temporal lobe which may represent small focal areas of acute infarction. 2. Several areas of signal abnormality in the basal ganglia and left posterior temporal lobes likely from prior hemorrhage. 3. Demyelination within the cerebral and pontine white matter likely from small vessel ischemic change. Anam Donis MD Objective Remarks General - elderly lady, trached, awake, ill-appearing HEENT - pupils equal, reactive, sclerae anicteric, neck supple, no neck vein distention, 8.0 Shiley tracheostomy CV - regular S1 and S2, no murmurs Chest - scattered coarse breath sounds b/l, no wheezes Abdomen - soft, nontender, distended, BS present, PEG tube - exit site clean Extremities - warm, 1+ edema over lower extremities, + peripheral pulses Neuro - awake, follows some commands, moves all extremities but she remains weak A/P Problem List: (1) Acute metabolic encephalopathy ICD Code: G93.41 - Metabolic encephalopathy Status: Acute (2) Paroxysmal atrial fibrillation with rapid ventricular response ICD Code: I48.0 - Paroxysmal atrial fibrillation Status: Acute (3) Lactic acidemia ICD Code: E87.2 - Acidosis Status: Acute (4) Cardiomyopathy ICD Code: I42.9 - Cardiomyopathy, unspecified Status: Chronic (5) Non-ST elevation FL (NSTEMI) ICD Code: I21.4 - Non-ST elevation (NSTEMI) myocardial infarction Status: Acute (6) Severe sepsis ICD Code: A41.9 - Sepsis, unspecified organism; R65.20 - Severe sepsis without septic shock Status: Acute (7) Altered mental status ICD Code: R41.82 - Altered mental status, unspecified Status: Acute (8) Hypertension ICD Code: I10 - Hypertension Status: Chronic (9) LAI (acute kidney injury) ICD Code: N17.9 - Acute kidney failure, unspecified Status: Acute (10) Metabolic acidosis ICD Code: E87.2 - Acidosis Status: Acute Assessment and Plan Neuro/Psych: Acute encephalopathy - improved 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 fib with RVR -currently in sinus rhythm Nonischemic cardiomyopathy, with reduced EF History of diastolic heart failure 03/30 NSTEMI Moderate MR History of essential hypertension Monitor HR and BP keep MAP>65mmHg On Hydralazine 50mg Q8, Lopressor 50mg Q12, add Cardizem 60mg Q6 Echocardiogram revealed EF 55%. Bilateral atrial enlargement. Pulmonary arterial pressure 33 mmHg Previous echocardiogram 2013 revealed EF 55-60%. Grade 1 diastolic dysfunction. Continue atorvastatin 10 mg at night, ASA 81mg daily, Eliquis 5mg BID Resp: Vent dependent respiratory failure -status post tracheostomy 12/[address] Flor Continue with vent support keep sats >92% Bronchodilators, Vent bundle Pulm toilet, trach care CPAP trials as trev GI: Status post PEG tube placement -Dr. Mendes 12/17 Hypoalbuminemia Acute blood loss anemia Hemorrhage around the PEG tube site On pantoprazole twice daily Tube feeds - Jevity 1.5@ 50 cc an hour per nutrition recommendations Docusate sodium/senna 1 tablet twice daily for bowel regimen : History of hematuria Monitor renal function, I/O's, electrolytes replacement per protocol Endo: SSI if needed for glycemic control Heme: Normocytic anemia Monitor CBC On Apixaban 5mg BID ID: Monitor for signs of infections ( Fever, WBC) sputum cx: normal resp angelika urine cx from 12/29: Group D enterococcus, Maria Teresa Albicans, Will repeat UA Evaluated by Dr. Amaro. Believe this was aspiration pneumonia. LP/cultures also see no growth. Blood cultures 12/12 revealed staph epi likely contaminant. All remainder microbiology has no growth MSK: PT evaluate and treat Access -Utilize peripheral IV. Prophylaxis -GI -Protonix 40mg daily -DVT -SCD, Eliquis 5mg BID Level 2 Problem Qualifiers (1) Altered mental status: (2) Hypertension: Qualified Codes: I10 - Essential (primary) hypertension Shahrzad Bautista MD January 01, 2018 07:29
[2018-01-01] MEDS ORDERED: PIPERACIL-TAZO 3.375 GM PREMIX 50 ML IV SCH (08:00)
[2018-01-01] MEDS: FLUCONAZOLE 100 MG TAB PO SCH (09:23)
[2018-01-01] MEDS: QUEtiapine FUMARATE 25 MG TAB PO SCH ×2 (09:23→19:59)
[2018-01-01] MEDS: ASPIRIN 81 MG CHEW TAB NG SCH (09:23)
[2018-01-01] MEDS: APIXABAN 5 MG TABLET PO SCH ×2 (09:23→19:58)
[2018-01-01] MEDS: METOPROLOL TARTRATE 50 MG TAB PO SCH ×2 (09:23→19:58)
[2018-01-01] MEDS: DOCUSATE SODIUM 50 MG/SENNA 8.6 MG TAB PO SCH ×2 (09:23→19:58)
[2018-01-01] MEDS: SODIUM CHLORIDE FLUSH BID IV FLUSH SCH ×2 (09:24→19:59)
[2018-01-01] MEDS: CHLORHEXIDINE 0.12% (ORAL KIT) 15 ML CUP MT SCH ×2 (09:25→19:59)
[2018-01-01] MEDS: NYSTATIN 100,000 U/GM PWD 15 GM BTL TOPICAL SCH ×2 (09:26→19:59)
[2018-01-01] MEDS: DILTIAZEM HCL 60 MG TAB PO SCH ×3 (09:45→17:41)
[2018-01-01] MEDS ORDERED: LINEZOLID 600 MG TAB PO SCH (10:00)
[2018-01-01 14:18] LABS: BILIRUBIN, URINE NEG (NEG); BLOOD, URINE NEG (NEG); GLUCOSE,URINE NEG (NEG); KETONE, URINE NEG (NEG); NITRITE,URINE NEG (NEG); URINE COLOR LIGHT-YELLOW (YELLW/STRAW); URINE LEUKOCYTE ESTERASE NEG (NEG)
[2018-01-01] MEDS ORDERED: ACETAMINOPHEN 325 MG TAB PO PRN (23:45)
[2018-01-02] VITALS (23 sets, daily range): BP systolic 136–196; BP diastolic 58–89; PULSE 56–79; RESP 16–33; TEMP 97.8–101.1; O2SAT 96–100
[2018-01-02] MEDS: RESP: ALBUTEROL 2.5 MG/3 ML NEB (PRN) NEB (00:04)
[2018-01-02] MEDS: DILTIAZEM HCL 60 MG TAB PO SCH ×4 (00:31→16:11)
[2018-01-02] MEDS: PANTOPRAZOLE SODIUM 40 MG VIAL IV PUSH SCH ×2 (00:31→12:46)
[2018-01-02] MEDS: MORPHINE SULFATE 4 MG/ML INJ IV PUSH PRN ×3 (03:38→16:12)
[2018-01-02] MEDS: CHLORHEXIDINE GLUCONATE 2 % 1 PACK (2 CLOTHS) TOP SCH (04:00)
[2018-01-02 04:12] LABS: AUTOMATED NEUTROPHIL # 5.5 TH/MM3 (1.8-7.7); BASOPHIL % 0.3 % (0.0-2.0); EOSINOPHIL # 0.4 TH/MM3 (0-0.4); EOSINOPHIL % 5.3 % (0.0-4.0); LYMPH % 13.6 % (9.0-44.0); LYMPHOCYTE # 1.1 TH/MM3 (1.0-4.8); MEAN CELL VOLUME 81.5 FL (80.0-100.0); MEAN CORPUSCULAR HEMOGLOBIN 26.9 PG (27.0-34.0); MEAN PLATELET VOLUME 9.7 FL (7.0-11.0); MONO % 9.3 % (0.0-8.0); MONOCYTE # 0.7 TH/MM3 (0-0.9); NEUT % 71.5 % (16.0-70.0); PLATELET COUNT 178 TH/MM3 (150-450); RED BLOOD COUNT 2.56 MIL/MM3 (4.00-5.30); RED CELL DISTRIBUTION WIDTH 13.9 % (11.6-17.2); WHITE BLOOD COUNT 7.7 TH/MM3 (4.0-11.0)
[2018-01-02 04:21] LABS: HEMATOCRIT 20.9 % (35.0-46.0); HEMOGLOBIN 6.9 GM/DL (11.6-15.3)
[2018-01-02 04:31] LABS: BICARBONATE 29.8 MEQ/L (21.0-32.0); CALCIUM 9.3 MG/DL (8.5-10.1); CREATININE 1.43 MG/DL (0.50-1.00); MAGNESIUM 2.3 MG/DL (1.5-2.5); PHOSPHORUS 4.2 MG/DL (2.5-4.9)
[2018-01-02] MEDS: ALPRAZolam 1 MG TAB PO PRN ×3 (05:11→23:38)
[2018-01-02] MEDS: hydrALAZINE HCL 50 MG TAB PO SCH ×3 (05:11→21:28)
[2018-01-02] MEDS: ARTIFICIAL TEARS OPTH SOLN 15 ML BTL EACH EYE SCH ×3 (06:00→21:28)
[2018-01-02] MEDS: RESP: ALBUTEROL 2.5 MG/IPRATROPIUM 0.5 MG NEB (PRN) NEB ×4 (08:08→20:28)
[2018-01-02] MEDS: METOPROLOL TARTRATE 50 MG TAB PO SCH ×2 (08:40→21:27)
[2018-01-02] MEDS: ACETAMINOPHEN/HYDROcodone 325 MG/5 MG TAB PO PRN ×2 (08:40→17:48)
[2018-01-02] MEDS: DOCUSATE SODIUM 50 MG/SENNA 8.6 MG TAB PO SCH ×2 (08:40→21:28)
[2018-01-02] MEDS: APIXABAN 5 MG TABLET PO SCH ×2 (08:40→21:28)
[2018-01-02] MEDS: ASPIRIN 81 MG CHEW TAB NG SCH (08:40)
[2018-01-02] MEDS: QUEtiapine FUMARATE 25 MG TAB PO SCH ×2 (08:41→21:28)
[2018-01-02] MEDS: NYSTATIN 100,000 U/GM PWD 15 GM BTL TOPICAL SCH ×2 (08:41→21:28)
[2018-01-02] MEDS: CHLORHEXIDINE 0.12% (ORAL KIT) 15 ML CUP MT SCH ×2 (08:42→21:25)
[2018-01-02] MEDS: SODIUM CHLORIDE FLUSH BID IV FLUSH SCH ×2 (08:42→21:25)
--- NOTE | 2018-01-02 11:03 | PD.TRANSFR ---
Transfer Summary Admission Date Dec 04, 2017 at 13:53 Admitting Diagnosis severe sepsis/NSTEMI Diagnoses: (1) Acute metabolic encephalopathy Diagnosis: Principal (2) Altered mental status Diagnosis: Principal (3) Severe sepsis Diagnosis: Principal (4) Non-ST elevation AK (NSTEMI) Diagnosis: Principal (5) Cardiomyopathy Diagnosis: Principal (6) Lactic acidemia Diagnosis: Principal (7) Hypertension Diagnosis: Secondary (8) Cerebrovascular accident (stroke) Transfer Summary/Subjective Patient is a 71-year-old female with history of alcohol dependence, history of acromegaly, hypertension, type 2 diabetes, COPD who presented to the emergency department for increasing lethargy and a UTI symptoms and severe fatigue for last 4 days. She drinks approximately 5 alcoholic beverages a day. Patient was initially hypothermic with temperatures in the 95. Tachycardic and hypotensive with lowest blood pressure recorded as 55/30. Patient was fluid resuscitated with 2.5 L of normal saline, and despite that remained hypotensive. Patient was given vancomycin and cefepime. Hb was 8.1, found to be Hemoccult positive and also had coffee-ground emesis with some blood clots in the emergency department. She was transfused 2 units of emergency release blood. Levophed was started for persistent hypotension and Dr. Thacker placed a Rright IUJ central line. Her lactic acid was found to be 7.3. UA showed evidence of severe UTI which could be the source of sepsis, white count was 12.9 with left shift. Other pertinent labs included total bilirubin of 3.8 elevated lipase at 742, lactic acid as mentioned above 7.3. [employer] Sales[employer] evaluated the patient in the emergency department. Despite fluid boluses and now receiving blood patient is on 10 mcg/min of Levophed. Patient is lethargic encephalopathic but she is able to answer some of the questions. I am told by the ED physician that patient wanted to be a DNR but wants to get medical management for current situation. Patient is a poor historian is lethargic and has encephalopathy from UTI. I will readdress the CODE STATUS when patient is clinically improved. For sepsis cefepime will be continued. Have placed the patient on IV Protonix infusion and octreotide infusion for upper GI bleed. Monitor hemoglobin every 6 hours for at least 24 hours. GI has been consulted. Cefepime will provide SBP prophylaxis also DAILY SUBJECTIVE: 12/05: Remains intubated sedated. MRI brain showing small punctate areas of signal abnormality in the posterior left temporal lobe-possible small focal areas of acute infarction. Also several areas of signal abnormality in the basal ganglia and left posterior temporal lobes likely from prior hemorrhage. Demyelination within the cerebral and pontine white matter likely from small vessel ischemic change. Neurology consult. Stat EEG is pending. Fever is down trending afebrile now, developed atrial fibrillation with RVR started on amiodarone infusion. I have resumed heparin infusion. 12/06: Afebrile. Last evening the patient had decreased mat requiring additional pressor support vasopressin added to medication regimen and diminished urinary output. Patient was noted to have significant elevation in creatinine this a.m. Patient remains on vasopressin and norepinephrine vasopressor support. Patient continues on amiodarone infusion, plan to transition to p.o.. Sedation vacation initiated yesterday for EEG, per report patient following commands. Sedation vacation in progress at this time. Noticed slight elevation in WBC count, repeat urine culture pending. 12/07: Remains intubated sedated. Currently on IV heparin infusion, amiodarone infusion and vasopressin gtt to maintain MAP >65. Had developed acute kidney injury yesterday creatinine had bumped to 2. Urine output 550 mL in the last 24 hours. CMP today is pending. On sedation hold patient opens eyes weakly moves extremities do not follow commands. Remains severely encephalopathy 12/08: No events over the night. Patient remains encephalopathic, opens eyes to voice stimuli, but does not consistently follow commands. She remains on amiodarone and heparin infusions, no pressors. T-max of 99.6. I/O 2250/960, more than 11 L positive since admission if correctly documented. 12/09: Few episodes of A. fib with RVR over the night. T-max of 99.1. Patient remains intubated and sedated. No family present at bedside. 12/10: No events over the night. Patient is more awake this a.m. 30 with propofol. Good response to diuresis, T-max 100.1. In telemetry, patient currently in sinus rhythm and she continues to be on amiodarone infusion. 12/11: No events over the night. T-max of 100.2. On 35 off propofol this morning, arousable, following some commands. Diuresing well with Lasix. She remains in sinus rhythm. 12/12: Patient remains intubated and sedated, on propofol at 35. Yesterday patient tolerated CPAP trials for a little less than 2 hours. Afebrile, with a T-max of 99.8. I/O 2069/2099. Patient is arousable, tracking, following some commands. 12/13: No events over the night. T-max of 99.9. Patient is awake, on some sedation, following some commands. Urine dark with some sediment. 12/14: Patient developed worsening hematuria over the night therefore I stopped heparin drip this morning. Yesterday she tolerated CPAP for approximately 2 hours then she became tachypneic. Sedation was changed to Precedex and propofol was stopped, patient is awake and calm following commands. Still significant amount of sputum secretions. T-max of 99.1. I/O 2485/1125. 12/15: Tmax 100.2. The patient continues on Precedex infusion, with a RASS -1. No active signs of bleeding, no hematuria noted. Subcu heparin DVT prophylaxis instituted. 12/16: T-max 100.3. Patient awake and responsive on Precedex infusion. Discussion with family planned for tracheostomy and PEG placement, due to slow vent weaning. Patient continues on CPAP trials. Creatinine slightly more elevated today IV infusion increased to 100 cc/hr. 12/17: T-max 99.8. Patient tolerated CPAP trials for greater than 10 hours yesterday, on Precedex infusion. During the night the patient was more agitated , propofol infusion initiated, Precedex infusion discontinued. Plans for tracheostomy and PEG placement today. Patient continues on IV fluid 100 cc/ hour BMP pending. 12/18: Afebrile. No acute events overnight patient is postop day 1 status post tracheostomy and PEG placement tube feeds reinitiated no residuals noted will advance to goal rate today. Patient's creatinine has improved IV fluids discontinued at this time. CPAP trials to begin today. Subcu heparin resumed. 12/19: Afebrile. Patient currently on Precedex 0.8 mcgs/kg/hr. Patient is awake nodding yes and no to questions slightly anxious. The patient denies any pain. Xanax 1 mg every 6 hours as needed order. Sodium level noted to be trending slightly upward free water flushes 200 cc/8 hours initiated. 12/20: Continues on dexmedetomidine at 1.0 mcg/kg/hr. On CPAP 12 hours yesterday. Tolerated well currently on Zoloft. Tube feeds at goal. Positive BM. Awake and follows commands 4 12/21: Continues on dexmedetomidine drip. Remains on CPAP. Will attempt to start quetiapine today 25 mg daily and schedule oxycodone 5 mg every 6 hours and attempt to wean off dexmedetomidine drip. Tolerating tube feeds at goal. Awake and follows commands. 12/22: No events over the night. T-max of 99.1. Patient in sinus rhythm. I/O 1764/675. Patient is awake, tolerating higher pressure support CPAP. 12/23: Still with some bleeding around the PEG tube site. Hemoglobin lower at this morning 1 unit PRBC was ordered. T-max of 99.7 over the night, 1200 mL's of urine output. Scheduled to undergo EGD today. On pantoprazole drip. 12/24: No events over the night. Bleeding around the PEG site stopped. Patient remains on pantoprazole drip and dexmedetomidine infusion. She is tolerating CPAP. T-max of 100.5 yesterday morning. Morning chest x-ray reviewed, cardiomegaly, trach is in place, still with bibasilar opacities not significantly changed. 12/25: Patient tolerated trach collar yesterday for approximately 7 hours. She was placed back on full support last night. Currently patient is back on trach collar, doing well. She is awake, on Precedex at 0.3. Afebrile over the night with a T-max of 99.2. She responded well to diuretics, with a urine output of 2.8 L over the last 24 hours. 12/26: No events over the night. T-max of 99.6. Patient remains on Precedex infusion. Responded well to diuretics, urine output more than 3 L over the last 24 hours. Patient yesterday tolerated T piece for approximately 6-7 hours and then she required full support. 12/27: No events over the night. Patient is currently on CPAP / tolerating well. She is awake, following some commands becomes easily agitated. 12/28 No events overnight. On Precedex drip 0.6. Afebrile. Tolerated CPAP all day yesterday. 12/29 Patient remains on ventilator via trach, T;100.7 last night. Off Precedex drip. 12/30 No events overnight. Tolerated CPAP x 5 hrs yesterday. Afebrile. 12/31 Patient remains on ventilator via trach, T: 100.0 @midnight, hypertensive. 01/01 No events overnight. Afebrile. 01/02 Case management states possible transfer to [facility] today. Transfused 1 unit PRBC this morning for Hgb 6.9 from 7.2, repeat pending. No evidence of active bleeding. Blood and sputum cultures sent overnight for temp 101. WBC 7.7. Hemodynamically stable. Daughter is at bedside and is hopeful to get her transferred before she has to leave town. Objective Vital Signs Date Time Temp Pulse Resp B/P (MAP) Pulse Ox O2 Delivery O2 Flow Rate FiO2 01/02/18 08:16 30 01/02/18 08:10 100 01/02/18 06:42 98.3 69 19 148/89 Intake and Output 01/02/18 01/02/18 01/03/18 08:00 16:00 00:00 Intake Total 743 ml 400 ml Output Total 500 ml Balance 243 ml 400 ml Result Diagram: 01/02/18 0325 01/02/18 0325 Imaging Last Impressions Chest X-Ray 12/31/17 0000 Signed Impressions: Service Date/Time: December 07:37 - CONCLUSION: No significant change has occurred. Philippe Peters MD Abdomen/Pelvis CT 12/22/17 0000 Signed Impressions: Service Date/Time: Friday, December 22, 2017 12:13 - CONCLUSION: 1. There is diffuse prominent body anasarca 2. Small amount of free fluid deep in the pelvis with edema throughout the mesenteric fat. This is most likely related to patient's anasarca. 3. Bilateral pleural effusions. 4. Left ovarian cyst measuring 1.6 cm. 5. Gastrostomy tube in the stomach. Chinmay Espinoza MD Liver Ultrasound 12/11/17 0000 Signed Impressions: Service Date/Time: Monday, December 11, 2017 13:59 - CONCLUSION: 1. Liver is prominent with no focal mass lesions or fatty infiltration. 2. Trace fluid about the liver. 3. Bilateral pleural effusions. Mahendra Poe MD Chest CT 12/04/17 1154 Signed Impressions: Service Date/Time: Monday, December 04, 2017 12:43 - CONCLUSION: Probable mild congestive failure with trace pleural effusions. No evidence for mass. Jean-Paul Hoffmann MD FACR Head CT 12/04/17 1126 Signed Impressions: Service Date/Time: Monday, December 04, 2017 12:37 - CONCLUSION: Stable brain appearance. No acute intracranial findings Anam Rojas MD Neck Magnetic Resonance Angiography 12/04/17 0000 Signed Impressions: Service Date/Time: Monday, December 04, 2017 20:36 - CONCLUSION: 1. Mild plaque at the right carotid bulb/proximal internal carotid artery without significant stenosis. 2. Significant opacification of the aortic arch and origins of the great vessels is not present. These areas cannot be evaluated. Anam Donis MD Head Magnetic Resonance Angiography 12/04/17 0000 Signed Impressions: Service Date/Time: Monday, December 04, 2017 20:36 - CONCLUSION: No acute disease. Anam Donis MD Brain MRI 12/04/17 0000 Signed Impressions: Service Date/Time: Monday, December 04, 2017 20:36 - CONCLUSION: 1. Small punctate areas of signal abnormality in the posterior left temporal lobe which may represent small focal areas of acute infarction. 2. Several areas of signal abnormality in the basal ganglia and left posterior temporal lobes likely from prior hemorrhage. 3. Demyelination within the cerebral and pontine white matter likely from small vessel ischemic change. Anam Donis MD Objective Remarks General - Elderly female who is sitting [place] [facility] mechanical ventilation via trach. HEENT - Pupils equal, 2mm and reactive, sclerae anicteric, 8.[address] Trach sutures in place with some redness, no drainage. CV - regular S1 and S2, no murmurs, sinus on the monitor with rate in 60s. RESP - breathing comfortably on mechanical ventilation via trach, minimal secretions with suctioning. Abdomen - soft, nontender, nondistended, BS active, tolerating tube feeds, PEG tube - exit site clean without bleeding. : Purewick urinary collection system in place with yellow output. SKIN: ~2 cm nonstageable decub ulcer on L buttocks overlying ischial tuberosity. Extremities - warm, trace edema all extremities, + peripheral pulses, NEURO: Awakens to voice. Eyes open and makes eye contact. Squeezes hands bilaterally and moves feet bilaterally to command. She is generally weak. A/P Problem List: (1) Acute metabolic encephalopathy ICD Code: G93.41 - Metabolic encephalopathy Status: Acute (2) Paroxysmal atrial fibrillation with rapid ventricular response ICD Code: I48.0 - Paroxysmal atrial fibrillation Status: Acute (3) Lactic acidemia ICD Code: E87.2 - Acidosis Status: Acute (4) Cardiomyopathy ICD Code: I42.9 - Cardiomyopathy, unspecified Status: Chronic (5) Non-ST elevation AK (NSTEMI) ICD Code: I21.4 - Non-ST elevation (NSTEMI) myocardial infarction Status: Acute (6) Severe sepsis ICD Code: A41.9 - Sepsis, unspecified organism; R65.20 - Severe sepsis without septic shock Status: Acute (7) Altered mental status ICD Code: R41.82 - Altered mental status, unspecified Status: Acute (8) Hypertension ICD Code: I10 - Hypertension Status: Chronic (9) LAI (acute kidney injury) ICD Code: N17.9 - Acute kidney failure, unspecified Status: Acute (10) Metabolic acidosis ICD Code: E87.2 - Acidosis Status: Acute Assessment and Plan Neuro/Psych: Acute encephalopathy - improved 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 CV: A. fib with RVR -currently in sinus rhythm Nonischemic cardiomyopathy, with reduced EF History of diastolic heart failure 03/30 NSTEMI Moderate MR History of essential hypertension Monitor HR and BP keep MAP>65mmHg On Hydralazine 50mg Q8, Lopressor 50mg Q12, Cardizem 60mg Q6 Echocardiogram 12/05/17 revealed EF 55%. Bilateral atrial enlargement. Pulmonary arterial pressure 33 mmHg Previous echocardiogram 2013 revealed EF 55-60%. Grade 1 diastolic dysfunction. Continue atorvastatin 10 mg at night, ASA 81mg daily, Eliquis 5mg BID Resp: Acute respiratory failure -status post tracheostomy 12/[address] Flor Remove trach sutures 01/02. CPAP trials daily. Bronchodilators, Vent bundle Pulm toilet, trach care GI: Status post PEG tube placement -Dr. Mendes 12/17 Hypoalbuminemia Acute blood loss anemia Hemorrhage around the PEG tube site, resolved 12/23/[address] Mccormick (due to bleeding at PEG site) - normal esophagus. Normal duodenal mucosa. Single ulcer 5-9 mm in the gastric body. Submucosal injection of 3 mL's of epinephrine was performed. On pantoprazole twice daily Tube feeds - Jevity 1.5@ 50 cc an hour per nutrition recommendations Docusate sodium/senna 1 tablet twice daily for bowel regimen FEN/RENAL: History of hematuria, resolved Purewick catheter in place. Monitor renal function, I/O's, electrolytes replacement per protocol Endo: Euglycemic Heme: Normocytic anemia Transfused 1 unit PRBC on 01/02. Repeat Hgb pending. Does not have apparent active bleeding, drifted from hgb 7.2 Monitor CBC On Apixaban 5mg BID ID: Fever - temp 101.1 overnight. urine cx from 12/29: Group D enterococcus, Maria Teresa Albicans. Received zosyn 01/01 , fluconazole 01/01 , vanc 12/31-01/[address] Geetha Morris, with ID. She will see the patient. Repeat UA 01/01 negative. Follow-up sputum and blood cultures that were sent overnight. Check chest x-ray. Previously was evaluated by Dr. Amaro suspected aspiration pneumonia.. LP/ cultures also see no growth. Rocephin discontinued 12/08 and has been off continuous antibiotics since then aside from the empirc doses mentioned before. Blood cultures 12/12 revealed staph epi likely contaminant. MSK: PT evaluate and treat. OT Access -Utilize peripheral IV. Prophylaxis -GI -Protonix 40mg IV q12 hours daily. -DVT -SCD, Eliquis 5mg BID Level 2 Problem Qualifiers (1) Altered mental status: (2) Hypertension: Qualified Codes: I10 - Essential (primary) hypertension Samantha Muhammad MD January 02, 2018 11:03
--- NOTE | 2018-01-02 12:20 | RADRPT ---
EXAM DATE/TIME: 01/02/2018 12:04 [place] COMPARISON: CHEST SINGLE AP, December 31, 2017, 7:37. INDICATIONS : Respiratory distress MEDICAL HISTORY : Hypertension, stroke SURGICAL HISTORY : Hysterectomy. ENCOUNTER: Subsequent ACUITY: 2 weeks PAIN SCORE: Non-responsive. LOCATION: Bilateral chest FINDINGS: Persistent small to moderate right and small left pleural effusions with associated airspace disease in the lower lobes. Cardiac silhouette is enlarged with indistinct central pulmonary vascularity. The re is a stable tracheostomy. Remainder of the exam is unchanged. CONCLUSION: 1. No significant interval change. 2. Cardiomegaly with mild positive fluid balance. 3. Stable small to moderate right and small left pleural effusions with associated lower lobe airspac e disease. Kimo Gil MD on January 02, 2018 at 12:17 Board Certified Radiologist. This report was verified electronically.
[2018-01-02 12:23] LABS: HEMATOCRIT 25.3 % (35.0-46.0); HEMOGLOBIN 8.4 GM/DL (11.6-15.3)
--- NOTE | 2018-01-02 20:40 | HHI.IDPN ---
Subjective Subjective Remarks reconsulted 2/2 VRE in the urine case was reviewed Ms. Rausch is a 77-year-old female who reportedly is very active at baseline. The nurse taking care of the patient reports to me the patient was expected to be at the gym and when she did not show up of friends into the home and was found down, disoriented, staring off to the left not answering any questions. Her past medical history significant for hypertension, previous TIA and tobacco abuse. Patient was reportedly seen normal at 7 PM the night before when she was attending a car show. When in the emergency room her temperature was 101 and it spiked 203.7. ER workup included a CT scan which is negative for acute findings. Lab workup showed WBC 15.9 with a leftward shift, elevated lactic acid at 3.4 and an elevated troponin and 8.7. Cardiology was consulted and patient was given aspirin and recommended that IV heparin be started. IV heparin was not started because of lumbar puncture. Upon review of the numbers for lumbar puncture appears unremarkable with the minimal elevation of total protein. Patient had a sepsis workup initiated and started on meningitis doses for vancomycin and Rocephin, ampicillin as well as acyclovir IV. All the lumbar puncture studies as well as blood cultures are pending at the present time. Patient was found to be a phasic with a leftward gaze and diminished movements of the right upper and lower extremities. Patient was intubated for airway protection. A 2D echo done showed 20-25% EF with global hypokinesis. No prior history of any seizure disorder per review of records. No reported history of drug abuse. Pt essentially remains on vent , severe metabolic encephalopathy, sp trach, PEG Had a fever yday @ 101 Urine clx + for a VRE (Ent durans) from 12/29, repat UA looks better, had a very large BM, sp lactulose Antibiotics Vancomycin Rocephin Acyclovir Current Medications Medications (Trade) Dose Ordered Sig/April Route Start Time Stop Time Status Last Admin (Duoneb Neb) 1 ampule Q4HR NEB INH 12/04/17 16:00 12/06/17 11:34 (Duoneb Neb) 1 ampule Q2HR NEB PRN INH 12/04/17 14:00 Miscellaneous Information 1 Q361D XX 12/04/17 14:00 (Chlorhexidine 2% Cloth) 3 pack Taper DAILY@04 TOP 12/05/17 04:00 12/01/18 03:59 12/06/17 04:00 (Chlorhexidine 2% Cloth) 3 pack UNSCH PRN TOP 12/04/17 14:00 (Mera-Colace) 1 tab BID PO 12/04/17 21:00 12/05/17 08:38 (Milk Of Magnesia Liq) 30 ml Q12H PRN PO 12/04/17 14:00 (Senokot) 17.2 mg Q12H PRN PO 12/04/17 14:00 (Dulcolax Supp) 10 mg DAILY PRN RECTAL 12/04/17 14:00 (Lactulose Liq) 30 ml DAILY PRN PO 12/04/17 14:00 Vancomycin HCl 1000 mg/Sodium Chloride 250 ml @ 250 mls/hr Q12H IV 12/04/17 15:00 12/06/17 03:20 (D50w (Vial) Inj) 50 ml UNSCH PRN IV PUSH 12/04/17 14:00 (Glucagon Inj) 1 mg UNSCH PRN OTHER 12/04/17 14:00 (NovoLIN R SUPPLEMENTAL SCALE) 1 Q4H SQ 12/04/17 14:00 12/06/17 10:00 (Lopressor) 25 mg Q12HR PO 12/04/17 21:00 12/04/17 19:49 Acyclovir Sodium 680 mg/Sodium Chloride 100 ml @ 100 mls/hr Q8H IV 12/04/17 18:00 12/06/17 11:44 Thiamine HCl 100 mg/Sodium Chloride 101 ml @ 101 mls/hr DAILY@1800 IV 12/04/17 18:00 12/05/17 17:21 (Peridex 0.12% Liq) 15 ml BID@08,20 MT 12/04/17 20:00 12/06/17 08:30 Propofol 100 ml @ 2.04 mls/hr TITRATE PRN IV 12/04/17 17:30 12/06/17 05:04 (NS Flush) 2 ml UNSCH PRN IVF 12/05/17 04:15 12/06/17 08:38 (NS Flush) 2 ml BID IV FLUSH 12/05/17 09:00 12/06/17 08:37 Amiodarone HCl 450 mg/Sodium Chloride 250 ml @ 33 mls/hr [id number] IV 12/05/17 04:30 12/06/17 05:07 Heparin Sodium/ Dextrose 250 ml @ 7.72 mls/hr TITRATE PRN IV 12/05/17 07:00 12/05/17 15:39 Ceftriaxone Sodium 2000 mg/ Sodium Chloride 100 ml @ 200 mls/hr Q24H IV 12/06/17 00:00 12/05/17 23:27 Vasopressin 40 units/Dextrose 100 ml @ 6 mls/hr [id number] IV 12/05/17 11:00 12/06/17 00:05 Norepinephrine Bitartrate 250 ml @ 7.5 mls/hr TITRATE PRN IV 12/05/17 12:00 12/06/17 03:10 (Pepcid) 10 mg Q12HR PO 12/06/17 09:00 12/06/17 08:32 Sodium Bicarbonate 150 meq/Dextrose 1,150 ml @ 75 mls/hr [id number] IV 12/06/17 09:00 12/06/17 10:01 Lines Line no evidenc of infection Past Medical History Hypertension Previous CVA/TIA Tobacco abuse Past Surgical History Cataract surgery Breast augmentation Allergies: Coded Allergies: doxycycline (Unverified Allergy, Severe, 12/04/17) ALTERED MENTAL STATUS minocycline (Unverified Allergy, Severe, 12/04/17) ALTERED MENTAL STATUS tigecycline (Unverified Allergy, Severe, 12/04/17) ALTERED MENTAL STATUS Objective . Vital Signs Date Time Temp Pulse Resp B/P (MAP) Pulse Ox O2 Delivery O2 Flow Rate FiO2 01/02/18 20:05 16 01/02/18 18:00 76 01/02/18 17:51 99 30 01/02/18 16:38 79 139/63 (88) 98 01/02/18 16:00 30 01/02/18 16:00 79 01/02/18 16:00 98.2 79 33 170/80 (110) 98 01/02/18 14:00 60 01/02/18 12:27 100 30 01/02/18 12:00 62 19 137/60 (85) 100 01/02/18 12:00 62 01/02/18 12:00 30 01/02/18 10:00 56 01/02/18 09:30 59 16 144/65 (91) 100 5/19/18 08:16 30 01/02/18 08:10 100 30 01/02/18 08:00 30 01/02/18 08:00 75 01/02/18 08:00 97.8 76 33 196/76 (116) 100 01/02/18 06:42 98.3 69 19 148/89 100 01/02/18 06:20 98.4 70 23 136/58 100 01/02/18 06:00 67 01/02/18 05:13 16 01/02/18 04:34 100 30 01/02/18 04:00 30 01/02/18 04:00 58 01/02/18 04:00 99.8 58 19 151/65 (93) 100 01/02/18 02:00 65 01/02/18 00:04 99 30 01/02/18 00:01 17 01/02/18 00:00 30 01/02/18 00:00 101.1 70 17 174/71 (105) 100 01/02/18 00:00 70 01/01/18 22:00 65 01/02/18 01/02/18 01/03/18 15:00 23:00 07:00 Intake Total 430 ml 574 ml Output Total 300 ml Balance 430 ml 274 ml Tube Feeding 574 ml Packed Cells 400 ml Blood Product IV Normal Saline Flush 30 ml Output Urine Total 300 ml # Bowel Movements 2 . Laboratory Tests Test 01/01/18 03:15 01/02/18 03:25 01/02/18 11:50 White Blood Count 7.6 TH/MM3 7.7 TH/MM3 Red Blood Count 2.66 MIL/MM3 2.56 MIL/MM3 Hemoglobin 7.2 GM/DL 6.9 GM/DL 8.4 GM/DL Hematocrit 21.5 % 20.9 % 25.3 % Mean Corpuscular Volume 80.9 FL 81.5 FL Mean Corpuscular Hemoglobin 27.0 PG 26.9 PG Mean Corpuscular Hemoglobin Concent 33.4 % 33.0 % Red Cell Distribution Width 13.6 % 13.9 % Platelet Count 194 TH/MM3 178 TH/MM3 Mean Platelet Volume 9.3 FL 9.7 FL Neutrophils (%) (Auto) 71.3 % 71.5 % Lymphocytes (%) (Auto) 14.4 % 13.6 % Monocytes (%) (Auto) 8.2 % 9.3 % Eosinophils (%) (Auto) 5.5 % 5.3 % Basophils (%) (Auto) 0.6 % 0.3 % Neutrophils # (Auto) 5.4 TH/MM3 5.5 TH/MM3 Lymphocytes # (Auto) 1.1 TH/MM3 1.1 TH/MM3 Monocytes # (Auto) 0.6 TH/MM3 0.7 TH/MM3 Eosinophils # (Auto) 0.4 TH/MM3 0.4 TH/MM3 Basophils # (Auto) 0.0 TH/MM3 0.0 TH/MM3 CBC Comment DIFF FINAL DIFF FINAL Differential Comment Laboratory Tests Test 01/01/18 03:15 01/02/18 03:25 Blood Urea Nitrogen 22 MG/DL 27 MG/DL Creatinine 1.22 MG/DL 1.43 MG/DL Random Glucose 94 MG/DL 112 MG/DL Total Protein 5.9 GM/DL Albumin 2.5 GM/DL Calcium Level 9.4 MG/DL 9.3 MG/DL Alkaline Phosphatase 124 U/L Aspartate Amino Transf (AST/SGOT) 14 U/L Alanine Aminotransferase (ALT/SGPT) 17 U/L Total Bilirubin 0.3 MG/DL Sodium Level 141 MEQ/L 142 MEQ/L Potassium Level 4.0 MEQ/L 4.1 MEQ/L Chloride Level 103 MEQ/L 103 MEQ/L Carbon Dioxide Level 31.3 MEQ/L 29.8 MEQ/L Anion Gap 7 MEQ/L 9 MEQ/L Estimat Glomerular Filtration Rate 43 ML/MIN 36 ML/MIN Phosphorus Level 4.2 MG/DL Magnesium Level 2.3 MG/DL Microbiology Date/Time Source Procedure Growth Status 01/02/18 00:57 Blood Peripheral Aerobic Blood Culture Pending Received 01/02/18 00:57 Blood Peripheral Anaerobic Blood Culture Pending Received 01/02/18 00:00 Sputum Endotracheal Gram Stain Pending Received 01/02/18 00:00 Sputum Endotracheal Sputum Culture Pending Received 01/01/18 10:25 Urine Catheterized Urine Urine Culture - Preliminary NO GROWTH IN 24 HOURS. Resulted Imaging Last Impressions Chest X-Ray 01/02/18 0000 Signed Impressions: Service Date/Time: Tuesday, January 02, 2018 12:04 - CONCLUSION: 1. No significant interval change. 2. Cardiomegaly with mild positive fluid balance. 3. Stable small to moderate right and small left pleural effusions with associated lower lobe airspace disease. Kimo Gil MD Abdomen/Pelvis CT 12/22/17 0000 Signed Impressions: Service Date/Time: Friday, December 22, 2017 12:13 - CONCLUSION: 1. There is diffuse prominent body anasarca 2. Small amount of free fluid deep in the pelvis with edema throughout the mesenteric fat. This is most likely related to patient's anasarca. 3. Bilateral pleural effusions. 4. Left ovarian cyst measuring 1.6 cm. 5. Gastrostomy tube in the stomach. Chinmay Espinoza MD Liver Ultrasound 12/11/17 0000 Signed Impressions: Service Date/Time: Monday, December 11, 2017 13:59 - CONCLUSION: 1. Liver is prominent with no focal mass lesions or fatty infiltration. 2. Trace fluid about the liver. 3. Bilateral pleural effusions. Mahendra Poe MD Chest CT 12/04/17 1154 Signed Impressions: Service Date/Time: Monday, December 04, 2017 12:43 - CONCLUSION: Probable mild congestive failure with trace pleural effusions. No evidence for mass. Jean-Paul Hoffmann MD FACR Head CT 12/04/17 1126 Signed Impressions: Service Date/Time: Monday, December 04, 2017 12:37 - CONCLUSION: Stable brain appearance. No acute intracranial findings Anam Rojas MD Neck Magnetic Resonance Angiography 12/04/17 0000 Signed Impressions: Service Date/Time: Monday, December 04, 2017 20:36 - CONCLUSION: 1. Mild plaque at the right carotid bulb/proximal internal carotid artery without significant stenosis. 2. Significant opacification of the aortic arch and origins of the great vessels is not present. These areas cannot be evaluated. Anam Donis MD Head Magnetic Resonance Angiography 12/04/17 0000 Signed Impressions: Service Date/Time: Monday, December 04, 2017 20:36 - CONCLUSION: No acute disease. Anam Donis MD Brain MRI 12/04/17 0000 Signed Impressions: Service Date/Time: Monday, December 04, 2017 20:36 - CONCLUSION: 1. Small punctate areas of signal abnormality in the posterior left temporal lobe which may represent small focal areas of acute infarction. 2. Several areas of signal abnormality in the basal ganglia and left posterior temporal lobes likely from prior hemorrhage. 3. Demyelination within the cerebral and pontine white matter likely from small vessel ischemic change. Anam Donis MD Physical Exam GENERAL: Sedated on the vent SKIN: No rashes,lesions. Cool and dry. HEAD: Atraumatic. Normocephalic. No temporal or scalp tenderness. EYES: Pupils equal round and reactive. No scleral icterus. No injection or drainage. ENT: Intubated. NECK: Trachea midline. Supple, nontender. CARDIOVASCULAR: Heart sounds audible. No murmur appreciated. RESPIRATORY: Clear to auscultation. Breath sounds equal bilaterally. GASTROINTESTINAL: Abdomen soft, non-tender, nondistended.' Incontinent of large amount of liquid light brown stool MUSCULOSKELETAL: Extremities without clubbing, cyanosis, or edema. NEUROLOGICAL: minimal respond Psych could not be assessed IV line sites with no evidence of infection. Assessment & Plan Remarks Sepsis present on admission No evidence on [employer] infection on LP Acute metabolic encephalopathy: Sepsis, ? new stroke. ?SZ Possible aspiration Prior history of TIA Prior history of smoking. Global hypokinesis with EF of 20-25% likely sepsis induced. Acute renal failure New febrile episode - resolved UTI vs bacteriuria Recommendations: no abx at this point monitor temps monitor clx dw Rukhsana Delcid MD January 02, 2018 20:40
[2018-01-03] VITALS (17 sets, daily range): BP systolic 112–173; BP diastolic 54–65; PULSE 63–100; RESP 15–31; TEMP 97.9–99.6; O2SAT 95–100
[2018-01-03] MEDS: DILTIAZEM HCL 60 MG TAB PO SCH ×4 (00:17→17:48)
[2018-01-03] MEDS: PANTOPRAZOLE SODIUM 40 MG VIAL IV PUSH SCH ×2 (00:18→11:32)
[2018-01-03] MEDS: CHLORHEXIDINE GLUCONATE 2 % 1 PACK (2 CLOTHS) TOP SCH ×2 (03:47→19:52)
[2018-01-03] MEDS: MORPHINE SULFATE 4 MG/ML INJ IV PUSH PRN ×3 (04:47→21:45)
[2018-01-03] MEDS: hydrALAZINE HCL 50 MG TAB PO SCH ×3 (05:35→21:45)
[2018-01-03] MEDS: ARTIFICIAL TEARS OPTH SOLN 15 ML BTL EACH EYE SCH ×3 (05:35→21:46)
[2018-01-03 07:35] LABS: HEMATOCRIT 23.2 % (35.0-46.0); HEMOGLOBIN 7.7 GM/DL (11.6-15.3); MEAN CELL VOLUME 80.3 FL (80.0-100.0); MEAN CORPUSCULAR HEMOGLOBIN 26.5 PG (27.0-34.0); PLATELET COUNT 188 TH/MM3 (150-450); RED BLOOD COUNT 2.89 MIL/MM3 (4.00-5.30); RED CELL DISTRIBUTION WIDTH 14.4 % (11.6-17.2)
[2018-01-03] MEDS: APIXABAN 5 MG TABLET PO SCH ×2 (08:00→21:45)
[2018-01-03] MEDS: SODIUM CHLORIDE FLUSH BID IV FLUSH SCH ×2 (08:00→21:44)
[2018-01-03] MEDS: DOCUSATE SODIUM 50 MG/SENNA 8.6 MG TAB PO SCH ×2 (08:00→21:00)
[2018-01-03] MEDS: CHLORHEXIDINE 0.12% (ORAL KIT) 15 ML CUP MT SCH ×2 (08:00→21:44)
[2018-01-03] MEDS: METOPROLOL TARTRATE 50 MG TAB PO SCH ×2 (08:00→21:45)
[2018-01-03] MEDS: ASPIRIN 81 MG CHEW TAB NG SCH (08:00)
[2018-01-03] MEDS: NYSTATIN 100,000 U/GM PWD 15 GM BTL TOPICAL SCH ×2 (08:00→21:46)
[2018-01-03] MEDS: QUEtiapine FUMARATE 25 MG TAB PO SCH ×2 (08:00→21:45)
--- NOTE | 2018-01-03 11:52 | PD.TRANSFR ---
Transfer Summary Admission Date Dec 04, 2017 at 13:53 Admitting Diagnosis severe sepsis/NSTEMI Diagnoses: (1) Acute metabolic encephalopathy Diagnosis: Principal (2) Altered mental status Diagnosis: Principal (3) Severe sepsis Diagnosis: Principal (4) Non-ST elevation AR (NSTEMI) Diagnosis: Principal (5) Cardiomyopathy Diagnosis: Principal (6) Lactic acidemia Diagnosis: Principal (7) Hypertension Diagnosis: Secondary (8) Cerebrovascular accident (stroke) Transfer Summary/Subjective Patient is a 71-year-old female with history of alcohol dependence, history of acromegaly, hypertension, type 2 diabetes, COPD who presented to the emergency department for increasing lethargy and a UTI symptoms and severe fatigue for last 4 days. She drinks approximately 5 alcoholic beverages a day. Patient was initially hypothermic with temperatures in the 95. Tachycardic and hypotensive with lowest blood pressure recorded as 55/30. Patient was fluid resuscitated with 2.5 L of normal saline, and despite that remained hypotensive. Patient was given vancomycin and cefepime. Hb was 8.1, found to be Hemoccult positive and also had coffee-ground emesis with some blood clots in the emergency department. She was transfused 2 units of emergency release blood. Levophed was started for persistent hypotension and Dr. hTacker placed a Rright IUJ central line. Her lactic acid was found to be 7.3. UA showed evidence of severe UTI which could be the source of sepsis, white count was 12.9 with left shift. Other pertinent labs included total bilirubin of 3.8 elevated lipase at 742, lactic acid as mentioned above 7.3. Photographic Spotter evaluated the patient in the emergency department. Despite fluid boluses and now receiving blood patient is on 10 mcg/min of Levophed. Patient is lethargic encephalopathic but she is able to answer some of the questions. I am told by the ED physician that patient wanted to be a DNR but wants to get medical management for current situation. Patient is a poor historian is lethargic and has encephalopathy from UTI. I will readdress the CODE STATUS when patient is clinically improved. For sepsis cefepime will be continued. Have placed the patient on IV Protonix infusion and octreotide infusion for upper GI bleed. Monitor hemoglobin every 6 hours for at least 24 hours. GI has been consulted. Cefepime will provide SBP prophylaxis also DAILY SUBJECTIVE: 12/05: Remains intubated sedated. MRI brain showing small punctate areas of signal abnormality in the posterior left temporal lobe-possible small focal areas of acute infarction. Also several areas of signal abnormality in the basal ganglia and left posterior temporal lobes likely from prior hemorrhage. Demyelination within the cerebral and pontine white matter likely from small vessel ischemic change. Neurology consult. Stat EEG is pending. Fever is down trending afebrile now, developed atrial fibrillation with RVR started on amiodarone infusion. I have resumed heparin infusion. 12/06: Afebrile. Last evening the patient had decreased mat requiring additional pressor support vasopressin added to medication regimen and diminished urinary output. Patient was noted to have significant elevation in creatinine this a.m. Patient remains on vasopressin and norepinephrine vasopressor support. Patient continues on amiodarone infusion, plan to transition to p.o.. Sedation vacation initiated yesterday for EEG, per report patient following commands. Sedation vacation in progress at this time. Noticed slight elevation in WBC count, repeat urine culture pending. 12/07: Remains intubated sedated. Currently on IV heparin infusion, amiodarone infusion and vasopressin gtt to maintain MAP >65. Had developed acute kidney injury yesterday creatinine had bumped to 2. Urine output 550 mL in the last 24 hours. CMP today is pending. On sedation hold patient opens eyes weakly moves extremities do not follow commands. Remains severely encephalopathy 12/08: No events over the night. Patient remains encephalopathic, opens eyes to voice stimuli, but does not consistently follow commands. She remains on amiodarone and heparin infusions, no pressors. T-max of 99.6. I/O 2250/960, more than 11 L positive since admission if correctly documented. 12/09: Few episodes of A. fib with RVR over the night. T-max of 99.1. Patient remains intubated and sedated. No family present at bedside. 12/10: No events over the night. Patient is more awake this a.m. 30 with propofol. Good response to diuresis, T-max 100.1. In telemetry, patient currently in sinus rhythm and she continues to be on amiodarone infusion. 12/11: No events over the night. T-max of 100.2. On 35 off propofol this morning, arousable, following some commands. Diuresing well with Lasix. She remains in sinus rhythm. 12/12: Patient remains intubated and sedated, on propofol at 35. Yesterday patient tolerated CPAP trials for a little less than 2 hours. Afebrile, with a T-max of 99.8. I/O 2069/2099. Patient is arousable, tracking, following some commands. 12/13: No events over the night. T-max of 99.9. Patient is awake, on some sedation, following some commands. Urine dark with some sediment. 12/14: Patient developed worsening hematuria over the night therefore I stopped heparin drip this morning. Yesterday she tolerated CPAP for approximately 2 hours then she became tachypneic. Sedation was changed to Precedex and propofol was stopped, patient is awake and calm following commands. Still significant amount of sputum secretions. T-max of 99.1. I/O 2485/1125. 12/15: Tmax 100.2. The patient continues on Precedex infusion, with a RASS -1. No active signs of bleeding, no hematuria noted. Subcu heparin DVT prophylaxis instituted. 12/16: T-max 100.3. Patient awake and responsive on Precedex infusion. Discussion with family planned for tracheostomy and PEG placement, due to slow vent weaning. Patient continues on CPAP trials. Creatinine slightly more elevated today IV infusion increased to 100 cc/hr. 12/17: T-max 99.8. Patient tolerated CPAP trials for greater than 10 hours yesterday, on Precedex infusion. During the night the patient was more agitated , propofol infusion initiated, Precedex infusion discontinued. Plans for tracheostomy and PEG placement today. Patient continues on IV fluid 100 cc/ hour BMP pending. 12/18: Afebrile. No acute events overnight patient is postop day 1 status post tracheostomy and PEG placement tube feeds reinitiated no residuals noted will advance to goal rate today. Patient's creatinine has improved IV fluids discontinued at this time. CPAP trials to begin today. Subcu heparin resumed. 12/19: Afebrile. Patient currently on Precedex 0.8 mcgs/kg/hr. Patient is awake nodding yes and no to questions slightly anxious. The patient denies any pain. Xanax 1 mg every 6 hours as needed order. Sodium level noted to be trending slightly upward free water flushes 200 cc/8 hours initiated. 12/20: Continues on dexmedetomidine at 1.0 mcg/kg/hr. On CPAP 12 hours yesterday. Tolerated well currently on Zoloft. Tube feeds at goal. Positive BM. Awake and follows commands 4 12/21: Continues on dexmedetomidine drip. Remains on CPAP. Will attempt to start quetiapine today 25 mg daily and schedule oxycodone 5 mg every 6 hours and attempt to wean off dexmedetomidine drip. Tolerating tube feeds at goal. Awake and follows commands. 12/22: No events over the night. T-max of 99.1. Patient in sinus rhythm. I/O 1764/675. Patient is awake, tolerating higher pressure support CPAP. 12/23: Still with some bleeding around the PEG tube site. Hemoglobin lower at this morning 1 unit PRBC was ordered. T-max of 99.7 over the night, 1200 mL's of urine output. Scheduled to undergo EGD today. On pantoprazole drip. 12/24: No events over the night. Bleeding around the PEG site stopped. Patient remains on pantoprazole drip and dexmedetomidine infusion. She is tolerating CPAP. T-max of 100.5 yesterday morning. Morning chest x-ray reviewed, cardiomegaly, trach is in place, still with bibasilar opacities not significantly changed. 12/25: Patient tolerated trach collar yesterday for approximately 7 hours. She was placed back on full support last night. Currently patient is back on trach collar, doing well. She is awake, on Precedex at 0.3. Afebrile over the night with a T-max of 99.2. She responded well to diuretics, with a urine output of 2.8 L over the last 24 hours. 12/26: No events over the night. T-max of 99.6. Patient remains on Precedex infusion. Responded well to diuretics, urine output more than 3 L over the last 24 hours. Patient yesterday tolerated T piece for approximately 6-7 hours and then she required full support. 12/27: No events over the night. Patient is currently on CPAP / tolerating well. She is awake, following some commands becomes easily agitated. 12/28 No events overnight. On Precedex drip 0.6. Afebrile. Tolerated CPAP all day yesterday. 12/29 Patient remains on ventilator via trach, T;100.7 last night. Off Precedex drip. 12/30 No events overnight. Tolerated CPAP x 5 hrs yesterday. Afebrile. 12/31 Patient remains on ventilator via trach, T: 100.0 @midnight, hypertensive. 01/01 No events overnight. Afebrile. 01/02 Case management states possible transfer to [facility] today. Transfused 1 unit PRBC this morning for Hgb 6.9 from 7.2, repeat pending. No evidence of active bleeding. Blood and sputum cultures sent overnight for temp 101. WBC 7.7. Hemodynamically stable. Daughter is at bedside and is hopeful to get her transferred before she has to leave town. 01/03 No further fevers. Repeat U/a 01/01 and blood culture 01/02 were negative. WBC 8. Objective Vital Signs Date Time Temp Pulse Resp B/P (MAP) Pulse Ox O2 Delivery O2 Flow Rate FiO2 01/03/18 09:15 97 30 01/03/18 06:00 80 01/03/18 04:52 17 01/03/18 04:00 98.4 112/54 (73) Intake and Output 01/03/18 01/03/18 01/04/18 08:00 16:00 00:00 Intake Total 403 ml Output Total 450 ml Balance -47 ml Result Diagram: 01/03/18 0417 01/02/18 0325 Imaging Last Impressions Chest X-Ray 12/31/17 0000 Signed Impressions: Service Date/Time: December 07:37 - CONCLUSION: No significant change has occurred. Philippe Peters MD Abdomen/Pelvis CT 12/22/17 0000 Signed Impressions: Service Date/Time: Friday, December 22, 2017 12:13 - CONCLUSION: 1. There is diffuse prominent body anasarca 2. Small amount of free fluid deep in the pelvis with edema throughout the mesenteric fat. This is most likely related to patient's anasarca. 3. Bilateral pleural effusions. 4. Left ovarian cyst measuring 1.6 cm. 5. Gastrostomy tube in the stomach. Chinmay Espinoza MD Liver Ultrasound 12/11/17 0000 Signed Impressions: Service Date/Time: Monday, December 11, 2017 13:59 - CONCLUSION: 1. Liver is prominent with no focal mass lesions or fatty infiltration. 2. Trace fluid about the liver. 3. Bilateral pleural effusions. Mahendra Poe MD Chest CT 12/04/17 1154 Signed Impressions: Service Date/Time: Monday, December 04, 2017 12:43 - CONCLUSION: Probable mild congestive failure with trace pleural effusions. No evidence for mass. Jean-Paul Hoffmann MD FACR Head CT 12/04/17 1126 Signed Impressions: Service Date/Time: Monday, December 04, 2017 12:37 - CONCLUSION: Stable brain appearance. No acute intracranial findings Anam Rojas MD Neck Magnetic Resonance Angiography 12/04/17 0000 Signed Impressions: Service Date/Time: Monday, December 04, 2017 20:36 - CONCLUSION: 1. Mild plaque at the right carotid bulb/proximal internal carotid artery without significant stenosis. 2. Significant opacification of the aortic arch and origins of the great vessels is not present. These areas cannot be evaluated. Anam Donis MD Head Magnetic Resonance Angiography 12/04/17 0000 Signed Impressions: Service Date/Time: Monday, December 04, 2017 20:36 - CONCLUSION: No acute disease. Anam Donis MD Brain MRI 12/04/17 0000 Signed Impressions: Service Date/Time: Monday, December 04, 2017 20:36 - CONCLUSION: 1. Small punctate areas of signal abnormality in the posterior left temporal lobe which may represent small focal areas of acute infarction. 2. Several areas of signal abnormality in the basal ganglia and left posterior temporal lobes likely from prior hemorrhage. 3. Demyelination within the cerebral and pontine white matter likely from small vessel ischemic change. Anam Donis MD Objective Remarks General - Elderly female who is sitting up [place] [facility] [place] mechanical ventilation via trach. HEENT - Pupils equal, 2mm and reactive, sclerae anicteric, 8.[address]. Trach sutures have been removed. CV - sinus on the monitor with rate in 70s. 2/6 systolic murmur LSB RESP - breathing comfortably on mechanical ventilation via trach, minimal secretions with suctioning. Abdomen - soft, nontender, nondistended, BS active, tolerating tube feeds, PEG tube - exit site clean without bleeding. : Purewick urinary collection system in place with yellow output. SKIN: ~2 cm nonstageable decub ulcer on L buttocks overlying ischial tuberosity. Extremities - warm, trace edema all extremities, + peripheral pulses, NEURO: Awakens to voice. Eyes open and makes eye contact. Squeezes hands bilaterally and moves feet bilaterally to command. She is generally weak. Urinary Catheter: No Vascular Central Line Catheter: No A/P Problem List: (1) Acute metabolic encephalopathy ICD Code: G93.41 - Metabolic encephalopathy Status: Acute (2) Paroxysmal atrial fibrillation with rapid ventricular response ICD Code: I48.0 - Paroxysmal atrial fibrillation Status: Resolved (3) Lactic acidemia ICD Code: E87.2 - Acidosis Status: Resolved (4) Cardiomyopathy ICD Code: I42.9 - Cardiomyopathy, unspecified Status: Chronic (5) Non-ST elevation AR (NSTEMI) ICD Code: I21.4 - Non-ST elevation (NSTEMI) myocardial infarction Status: Acute (6) Severe sepsis ICD Code: A41.9 - Sepsis, unspecified organism; R65.20 - Severe sepsis without septic shock Status: Resolved (7) Altered mental status ICD Code: R41.82 - Altered mental status, unspecified Status: Resolved (8) Hypertension ICD Code: I10 - Hypertension Status: Chronic (9) LAI (acute kidney injury) ICD Code: N17.9 - Acute kidney failure, unspecified Status: Acute (10) Metabolic acidosis ICD Code: E87.2 - Acidosis Status: Acute Assessment and Plan Neuro/Psych: Acute encephalopathy - improved 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 PT/OT. CV: A. fib with RVR -currently in sinus rhythm Nonischemic cardiomyopathy, with reduced EF History of diastolic heart failure 03/30 NSTEMI Moderate MR History of essential hypertension Monitor HR and BP keep MAP>65mmHg On Hydralazine 50mg Q8, Lopressor 50mg Q12, Cardizem 60mg Q6 Echocardiogram 12/05/17 revealed EF 55%. Bilateral atrial enlargement. Pulmonary arterial pressure 33 mmHg Previous echocardiogram 2013 revealed EF 55-60%. Grade 1 diastolic dysfunction. Continue atorvastatin 10 mg at night, ASA 81mg daily, Eliquis 5mg BID Resp: Acute respiratory failure -status post tracheostomy 12/[address] Flor Removed trach sutures 01/02. CPAP trials daily and transition to tpiece when tolerated. Bronchodilators, Vent bundle Pulm toilet, trach care GI: Status post PEG tube placement -Dr. Mendes 12/17 Hypoalbuminemia Acute blood loss anemia Hemorrhage around the PEG tube site, resolved 12/23/[address] Mccormick (due to bleeding at PEG site) - normal esophagus. Normal duodenal mucosa. Single ulcer 5-9 mm in the gastric body. Submucosal injection of 3 mL's of epinephrine was performed. On pantoprazole twice daily Tube feeds - Jevity 1.5@ 50 cc an hour per nutrition recommendations Docusate sodium/senna 1 tablet twice daily for bowel regimen FEN/RENAL: History of hematuria, resolved Purewick catheter in place. Monitor renal function, I/O's, electrolytes replacement per protocol Endo: Euglycemic Heme: Normocytic anemia Transfused 1 unit PRBC on 01/02 for Hgb 6.9. Does not have apparent active bleeding, drifted from hgb 7.2. Now 7.9 this morning. Monitor CBC On Apixaban 5mg BID ID: Fever - temp 101.1 overnight just after midnight on 01/02. Repeat blood and urine cultures negative. Sputum culture with MRSA. ID senior sustainability consultant, Dr. Morris evaluated 01/02 and 01/03 and recommended continue to watch off antibiotics. She states that MRSA in sputum and Urine enterococcus and amy are likely colonization rather than infection. Patient is afebrile without leukocytosis and stable FiO2 requirement, no change in resp secretions. Recommends close clinical monitoring and initiate antibiotics if clinical change including leukocytosis, fever, change in respiratory status. urine cx from 12/29: Group D enterococcus, Amy Albicans. Received zosyn 01/01 , fluconazole 01/01 , vanc 12/31-01/01. Repeat urine culture 01/01 was negative. CXR Previously was evaluated by Dr. Amaro suspected aspiration pneumonia.. LP/ cultures also see no growth. Rocephin discontinued 12/08 and has been off continuous antibiotics since then aside from the empirc doses mentioned before. Blood cultures 12/12 revealed staph epi likely contaminant. MSK: PT evaluate and treat. OT consult. Access -Utilize peripheral IV. Prophylaxis -GI -Protonix 40mg IV q12 hours daily. -DVT -SCD, Eliquis 5mg BID Patient will transfer to [facility] today. Daughter aware. Discussed with Dr. Morris, ID. Problem Qualifiers (1) Altered mental status: (2) Hypertension: Qualified Codes: I10 - Essential (primary) hypertension Samantha Muhammad MD January 03, 2018 11:52
--- NOTE | 2018-01-03 15:16 | HHI.IDPN ---
Subjective Subjective Remarks pt remains on the vent ready to go to [facility] sputum positive for MRSA no fever WBC wnl Antibiotics none Lines Line no evidenc of infection Past Medical History Hypertension Previous CVA/TIA Tobacco abuse Past Surgical History Cataract surgery Breast augmentation Allergies: Coded Allergies: doxycycline (Unverified Allergy, Severe, 12/04/17) ALTERED MENTAL STATUS minocycline (Unverified Allergy, Severe, 12/04/17) ALTERED MENTAL STATUS tigecycline (Unverified Allergy, Severe, 12/04/17) ALTERED MENTAL STATUS Objective . Vital Signs Date Time Temp Pulse Resp B/P (MAP) Pulse Ox O2 Delivery O2 Flow Rate FiO2 01/03/18 13:26 98 30 01/03/18 12:00 30 01/03/18 12:00 97.9 79 15 125/59 (81) 98 01/03/18 12:00 79 01/03/18 10:00 65 01/03/18 09:15 97 30 01/03/18 08:00 96 01/03/18 08:00 98.1 96 28 141/65 (90) 95 01/03/18 08:00 30 01/03/18 06:00 80 01/03/18 05:15 96 30 01/03/18 04:52 17 01/03/18 04:00 69 01/03/18 04:00 30 01/03/18 04:00 98.4 70 19 112/54 (73) 95 01/03/18 02:00 63 01/03/18 00:00 30 01/03/18 00:00 98.2 67 19 144/64 (90) 98 01/03/18 00:00 67 01/02/18 23:58 96 30 01/02/18 22:00 66 01/02/18 20:28 98 30 01/02/18 20:05 16 01/02/18 20:00 98.7 73 18 144/59 (87) 100 01/02/18 20:00 30 01/02/18 20:00 73 01/02/18 18:00 76 01/02/18 17:51 99 30 01/02/18 16:38 79 139/63 (88) 98 01/02/18 16:00 30 01/02/18 16:00 79 01/02/18 16:00 98.2 79 33 170/80 (110) 98 . Laboratory Tests Test 01/02/18 03:25 01/02/18 11:50 01/03/18 04:17 White Blood Count 7.7 TH/MM3 8.0 TH/MM3 Red Blood Count 2.56 MIL/MM3 2.89 MIL/MM3 Hemoglobin 6.9 GM/DL 8.4 GM/DL 7.7 GM/DL Hematocrit 20.9 % 25.3 % 23.2 % Mean Corpuscular Volume 81.5 FL 80.3 FL Mean Corpuscular Hemoglobin 26.9 PG 26.5 PG Mean Corpuscular Hemoglobin Concent 33.0 % 33.0 % Red Cell Distribution Width 13.9 % 14.4 % Platelet Count 178 TH/MM3 188 TH/MM3 Mean Platelet Volume 9.7 FL 10.0 FL Neutrophils (%) (Auto) 71.5 % Lymphocytes (%) (Auto) 13.6 % Monocytes (%) (Auto) 9.3 % Eosinophils (%) (Auto) 5.3 % Basophils (%) (Auto) 0.3 % Neutrophils # (Auto) 5.5 TH/MM3 Lymphocytes # (Auto) 1.1 TH/MM3 Monocytes # (Auto) 0.7 TH/MM3 Eosinophils # (Auto) 0.4 TH/MM3 Basophils # (Auto) 0.0 TH/MM3 CBC Comment DIFF FINAL Differential Comment Laboratory Tests Test 01/02/18 03:25 Blood Urea Nitrogen 27 MG/DL Creatinine 1.43 MG/DL Random Glucose 112 MG/DL Calcium Level 9.3 MG/DL Phosphorus Level 4.2 MG/DL Magnesium Level 2.3 MG/DL Sodium Level 142 MEQ/L Potassium Level 4.1 MEQ/L Chloride Level 103 MEQ/L Carbon Dioxide Level 29.8 MEQ/L Anion Gap 9 MEQ/L Estimat Glomerular Filtration Rate 36 ML/MIN Microbiology Date/Time Source Procedure Growth Status 01/02/18 00:57 Blood Peripheral Aerobic Blood Culture - Preliminary NO GROWTH IN 1 DAY Resulted 01/02/18 00:57 Blood Peripheral Anaerobic Blood Culture - Preliminary NO GROWTH IN 1 DAY Resulted 01/02/18 00:00 Sputum Endotracheal Gram Stain - Final Resulted 01/02/18 00:00 Sputum Culture - Preliminary S. Aureus Mrsa Resulted 01/01/18 10:25 Urine Catheterized Urine Urine Culture - Final Enterococcus Durans/Hirae Complete Imaging Last Impressions Chest X-Ray 01/02/18 0000 Signed Impressions: Service Date/Time: Tuesday, January 02, 2018 12:04 - CONCLUSION: 1. No significant interval change. 2. Cardiomegaly with mild positive fluid balance. 3. Stable small to moderate right and small left pleural effusions with associated lower lobe airspace disease. Kimo Gil MD Abdomen/Pelvis CT 12/22/17 0000 Signed Impressions: Service Date/Time: Friday, December 22, 2017 12:13 - CONCLUSION: 1. There is diffuse prominent body anasarca 2. Small amount of free fluid deep in the pelvis with edema throughout the mesenteric fat. This is most likely related to patient's anasarca. 3. Bilateral pleural effusions. 4. Left ovarian cyst measuring 1.6 cm. 5. Gastrostomy tube in the stomach. Chinmay Espinoza MD Liver Ultrasound 12/11/17 0000 Signed Impressions: Service Date/Time: Monday, December 11, 2017 13:59 - CONCLUSION: 1. Liver is prominent with no focal mass lesions or fatty infiltration. 2. Trace fluid about the liver. 3. Bilateral pleural effusions. Mahendra Poe MD Chest CT 12/04/17 1154 Signed Impressions: Service Date/Time: Monday, December 04, 2017 12:43 - CONCLUSION: Probable mild congestive failure with trace pleural effusions. No evidence for mass. Jean-Paul Hoffmann MD FACR Head CT 12/04/17 1126 Signed Impressions: Service Date/Time: Monday, December 04, 2017 12:37 - CONCLUSION: Stable brain appearance. No acute intracranial findings Anam Rojas MD Neck Magnetic Resonance Angiography 12/04/17 0000 Signed Impressions: Service Date/Time: Monday, December 04, 2017 20:36 - CONCLUSION: 1. Mild plaque at the right carotid bulb/proximal internal carotid artery without significant stenosis. 2. Significant opacification of the aortic arch and origins of the great vessels is not present. These areas cannot be evaluated. Anam Donis MD Head Magnetic Resonance Angiography 12/04/17 0000 Signed Impressions: Service Date/Time: Monday, December 04, 2017 20:36 - CONCLUSION: No acute disease. Anam Donis MD Brain MRI 12/04/17 0000 Signed Impressions: Service Date/Time: Monday, December 04, 2017 20:36 - CONCLUSION: 1. Small punctate areas of signal abnormality in the posterior left temporal lobe which may represent small focal areas of acute infarction. 2. Several areas of signal abnormality in the basal ganglia and left posterior temporal lobes likely from prior hemorrhage. 3. Demyelination within the cerebral and pontine white matter likely from small vessel ischemic change. Anam Donis MD Physical Exam GENERAL: Sedated on the vent SKIN: No rashes,lesions. Cool and dry. HEAD: Atraumatic. Normocephalic. No temporal or scalp tenderness. EYES: Pupils equal round and reactive. No scleral icterus. No injection or drainage. ENT: Intubated. NECK: Trachea midline. Supple, nontender. CARDIOVASCULAR: Heart sounds audible. No murmur appreciated. RESPIRATORY: Clear to auscultation. Breath sounds equal bilaterally. GASTROINTESTINAL: Abdomen soft, non-tender, nondistended.' Incontinent of large amount of liquid light brown stool MUSCULOSKELETAL: Extremities without clubbing, cyanosis, or edema. NEUROLOGICAL: minimal responsive Psych could not be assessed IV line sites with no evidence of infection. Assessment & Plan Remarks Sepsis present on admission No evidence on [employer] infection on LP Acute metabolic encephalopathy: Sepsis, ? new stroke. ?SZ Possible aspiration Prior history of TIA Prior history of smoking. Global hypokinesis with EF of 20-25% likely sepsis induced. 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
[2018-01-03] MEDS ORDERED: SERO25TA PO (15:38)
[2018-01-03] MEDS ORDERED: Nystatin Powder TOPICAL (15:38)
[2018-01-03] MEDS ORDERED: ASPI81 NG (15:38)
[2018-01-03] MEDS ORDERED: METO-309 PO (15:38)
[2018-01-03] MEDS ORDERED: XANA1TAB2 PO (15:38)
[2018-01-03] MEDS ORDERED: DILT60TA33 PO (15:38)
[2018-01-03] MEDS ORDERED: APIX5TAB PEG (15:38)
[2018-01-03] MEDS ORDERED: HYDR-3516 PO (15:38)
[2018-01-03] MEDS ORDERED: Albuterol Neb NEB (15:38)
[2018-01-03] MEDS ORDERED: MORP4INJ3 IV PUSH ×2 (15:38)
[2018-01-03] MEDS ORDERED: PANT40P IV PUSH (15:38)
[2018-01-03] MEDS ORDERED: Oral Hygiene Kit OROPHARYNG (15:38)
[2018-01-03] MEDS ORDERED: HYDR-3800 PO (15:38)
--- NOTE | 2018-01-03 15:38 | HHI.DCPOC ---
Discharge Care Plan Diagnosis: (1) Severe sepsis (2) Altered mental status (3) Respiratory failure (4) Shock liver (5) Metabolic acidosis (6) Acute metabolic encephalopathy (7) LAI (acute kidney injury) (8) Hypertension (9) CVA (cerebral infarction) (10) Non-ST elevation [place] (NSTEMI) (11) Cardiomyopathy (12) Lactic acidemia (13) Paroxysmal atrial fibrillation with rapid ventricular response Your Health Problems Are: Loss of Movements Shortness of Breath Goals to Promote Your Health * To prevent worsening of your condition and complications * To maintain your health at the optimal level Directions to Meet Your Goals Take your medications as prescribed Follow your dietary instruction Follow activity as directed Keep your appointments as scheduled Take your immunizations and boosters as scheduled If your symptoms worsen call your PCP, if no PCP go to Urgent Care Center or Emergency Room Smoking is Dangerous to Your Health. Avoid second hand smoke Call the 24-hour hour crisis hotline for domestic abuse at Samantha Muhammad MD January 03, 2018 15:38
[2018-01-03] MEDS: ACETAMINOPHEN/HYDROcodone 325 MG/5 MG TAB PO PRN (18:03)
[2018-01-03] MEDS: ALPRAZolam 1 MG TAB PO PRN (21:45)
[2018-01-04] VITALS (10 sets, daily range): BP systolic 110–137; BP diastolic 52–67; PULSE 65–86; RESP 16–24; TEMP 98.1–99.7; O2SAT 96–100
[2018-01-04] MEDS: DILTIAZEM HCL 60 MG TAB PO SCH ×3 (00:04→12:13)
[2018-01-04] MEDS: PANTOPRAZOLE SODIUM 40 MG VIAL IV PUSH SCH ×2 (00:04→12:24)
[2018-01-04] MEDS: ARTIFICIAL TEARS OPTH SOLN 15 ML BTL EACH EYE SCH (04:15)
[2018-01-04] MEDS: ACETAMINOPHEN/HYDROcodone 325 MG/5 MG TAB PO PRN (04:16)
[2018-01-04] MEDS: hydrALAZINE HCL 50 MG TAB PO SCH ×2 (05:05→14:26)
[2018-01-04] MEDS: CHLORHEXIDINE 0.12% (ORAL KIT) 15 ML CUP MT SCH (07:30)
[2018-01-04] MEDS: DOCUSATE SODIUM 50 MG/SENNA 8.6 MG TAB PO SCH (09:00)
[2018-01-04] MEDS: SODIUM CHLORIDE FLUSH BID IV FLUSH SCH (09:00)
[2018-01-04] MEDS: NYSTATIN 100,000 U/GM PWD 15 GM BTL TOPICAL SCH (09:00)
[2018-01-04] MEDS: METOPROLOL TARTRATE 50 MG TAB PO SCH (09:26)
[2018-01-04] MEDS: APIXABAN 5 MG TABLET PO SCH (09:26)
[2018-01-04] MEDS: ASPIRIN 81 MG CHEW TAB NG SCH (09:26)
[2018-01-04] MEDS: QUEtiapine FUMARATE 25 MG TAB PO SCH (09:26)
--- NOTE | 2018-01-04 11:30 | RADRPT ---
EXAM DATE/TIME: 01/04/2018 10:40 [facility] COMPARISON: CHEST SINGLE AP, January 02, 2018, 12:04. INDICATIONS : Trach tube placement. MEDICAL HISTORY : Stroke. Cerebrovascular disease. Hypertension SURGICAL HISTORY : None. ENCOUNTER: Subsequent ACUITY: 1 month PAIN SCORE: Non-responsive. LOCATION: Bilateral chest FINDINGS: Significant opacity remains evident in both lung bases. Heart is mildly enlarged. Tracheostomy tube is in stable position. CONCLUSION: Bilateral lung opacity characteristic of bilateral pleural effusions and underlying airspace disease. No significant change since prior study. Tracheostomy tube in good position. Tono Huff MD on January 04, 2018 at 11:27 Board Certified Radiologist. This report was verified electronically.
--- NOTE | 2018-01-04 14:03 | HHI.CCPN ---
Subjective Remarks/Hospital Course 77-year-old female who is apparently very active at baseline, with past medical history significant for hypertension and previous TIA, tobacco abuse. She was seen last normal yesterday night at 7 PM. Her friends checked on her today morning and was found down, disoriented, staring off to the left, not answering questions. I am not able to get much further history from her. She has a fever of 101 in the ER, initially and then spiked to 103.7. ER workup included a CT scan of head which was negative for acute findings. Lab work showed a white count of 15.9 with left shift, lactic acid was 3.4, troponin was elevated at 8.7. Cardiology Dr. Meza was contacted aspirin was given patient was recommended to be started on IV heparin but was held for LP. Lumbar puncture was unremarkable nevertheless patient was started on meningitic doses of vancomycin and Rocephin. I have added ampicillin 2 g IV every 4 hours, and acyclovir 680 mg IV every 8 hours. I evaluated the patient in the ICU. Patient is severely altered tachypneic in moderate distress. Patient is aphasic with left gaze preference diminished movements of the right upper and lower extremity. A bedside echo shows reduced EF approximately 20-25%, global hypokinesis. Patient has no history of cardiomyopathy to my knowledge. At this time his stroke cannot be ruled out. Stat MRI MRA had been ordered. Due to altered mentation tachypnea and lack of airway protection patient was intubated and placed on mechanical ventilation 12/05: Remains intubated sedated. MRI brain showing small punctate areas of signal abnormality in the posterior left temporal lobe-possible small focal areas of acute infarction. Also several areas of signal abnormality in the basal ganglia and left posterior temporal lobes likely from prior hemorrhage. Demyelination within the cerebral and pontine white matter likely from small vessel ischemic change. Neurology consult. Stat EEG is pending. Fever is down trending afebrile now, developed atrial fibrillation with RVR started on amiodarone infusion. I have resumed heparin infusion. 12/06: Afebrile. Last evening the patient had decreased mat requiring additional pressor support vasopressin added to medication regimen and diminished urinary output. Patient was noted to have significant elevation in creatinine this a.m. Patient remains on vasopressin and norepinephrine vasopressor support. Patient continues on amiodarone infusion, plan to transition to p.o.. Sedation vacation initiated yesterday for EEG, per report patient following commands. Sedation vacation in progress at this time. Noticed slight elevation in WBC count, repeat urine culture pending. 12/07: Remains intubated sedated. Currently on IV heparin infusion, amiodarone infusion and vasopressin gtt to maintain MAP >65. Had developed acute kidney injury yesterday creatinine had bumped to 2. Urine output 550 mL in the last 24 hours. CMP today is pending. On sedation hold patient opens eyes weakly moves extremities do not follow commands. Remains severely encephalopathy 12/08: No events over the night. Patient remains encephalopathic, opens eyes to voice stimuli, but does not consistently follow commands. She remains on amiodarone and heparin infusions, no pressors. T-max of 99.6. I/O 2250/960, more than 11 L positive since admission if correctly documented. 12/09: Few episodes of A. fib with RVR over the night. T-max of 99.1. Patient remains intubated and sedated. No family present at bedside. 12/10: No events over the night. Patient is more awake this a.m. 30 with propofol. Good response to diuresis, T-max 100.1. In telemetry, patient currently in sinus rhythm and she continues to be on amiodarone infusion. 12/11: No events over the night. T-max of 100.2. On 35 off propofol this morning, arousable, following some commands. Diuresing well with Lasix. She remains in sinus rhythm. 12/12: Patient remains intubated and sedated, on propofol at 35. Yesterday patient tolerated CPAP trials for a little less than 2 hours. Afebrile, with a T-max of 99.8. I/O 2069/2099. Patient is arousable, tracking, following some commands. 12/13: No events over the night. T-max of 99.9. Patient is awake, on some sedation, following some commands. Urine dark with some sediment. 12/14: Patient developed worsening hematuria over the night therefore I stopped heparin drip this morning. Yesterday she tolerated CPAP for approximately 2 hours then she became tachypneic. Sedation was changed to Precedex and propofol was stopped, patient is awake and calm following commands. Still significant amount of sputum secretions. T-max of 99.1. I/O 2485/1125. 12/15: Tmax 100.2. The patient continues on Precedex infusion, with a RASS -1. No active signs of bleeding, no hematuria noted. Subcu heparin DVT prophylaxis instituted. 12/16: T-max 100.3. Patient awake and responsive on Precedex infusion. Discussion with family planned for tracheostomy and PEG placement, due to slow vent weaning. Patient continues on CPAP trials. Creatinine slightly more elevated today IV infusion increased to 100 cc/hr. 12/17: T-max 99.8. Patient tolerated CPAP trials for greater than 10 hours yesterday, on Precedex infusion. During the night the patient was more agitated , propofol infusion initiated, Precedex infusion discontinued. Plans for tracheostomy and PEG placement today. Patient continues on IV fluid 100 cc/ hour BMP pending. 12/18: Afebrile. No acute events overnight patient is postop day 1 status post tracheostomy and PEG placement tube feeds reinitiated no residuals noted will advance to goal rate today. Patient's creatinine has improved IV fluids discontinued at this time. CPAP trials to begin today. Subcu heparin resumed. 12/19: Afebrile. Patient currently on Precedex 0.8 mcgs/kg/hr. Patient is awake nodding yes and no to questions slightly anxious. The patient denies any pain. Xanax 1 mg every 6 hours as needed order. Sodium level noted to be trending slightly upward free water flushes 200 cc/8 hours initiated. 12/20: Continues on dexmedetomidine at 1.0 mcg/kg/hr. On CPAP 12 hours yesterday. Tolerated well currently on Zoloft. Tube feeds at goal. Positive BM. Awake and follows commands 4 SUBJECTIVE: 12/21: Continues on dexmedetomidine drip. Remains on CPAP. Will attempt to start quetiapine today 25 mg daily and schedule oxycodone 5 mg every 6 hours and attempt to wean off dexmedetomidine drip. Tolerating tube feeds at goal. Awake and follows commands. 12/22: No events over the night. T-max of 99.1. Patient in sinus rhythm. I/O 1764/675. Patient is awake, tolerating higher pressure support CPAP. 12/23: Still with some bleeding around the PEG tube site. Hemoglobin lower at this morning 1 unit PRBC was ordered. T-max of 99.7 over the night, 1200 mL's of urine output. Scheduled to undergo EGD today. On pantoprazole drip. 12/24: No events over the night. Bleeding around the PEG site stopped. Patient remains on pantoprazole drip and dexmedetomidine infusion. She is tolerating CPAP. T-max of 100.5 yesterday morning. Morning chest x-ray reviewed, cardiomegaly, trach is in place, still with bibasilar opacities not significantly changed. 12/25: Patient tolerated trach collar yesterday for approximately 7 hours. She was placed back on full support last night. Currently patient is back on trach collar, doing well. She is awake, on Precedex at 0.3. Afebrile over the night with a T-max of 99.2. She responded well to diuretics, with a urine output of 2.8 L over the last 24 hours. 12/26: No events over the night. T-max of 99.6. Patient remains on Precedex infusion. Responded well to diuretics, urine output more than 3 L over the last 24 hours. Patient yesterday tolerated T piece for approximately 6-7 hours and then she required full support. 12/27: No events over the night. Patient is currently on CPAP 07/21 tolerating well. She is awake, following some commands becomes easily agitated. 12/28 No events overnight. On Precedex drip 0.6. Afebrile. Tolerated CPAP all day yesterday. 12/29 Patient remains on ventilator via trach, T;100.7 last night. Off Precedex drip. 12/30 No events overnight. Tolerated CPAP x 5 hrs yesterday. Afebrile. 12/31 Patient remains on ventilator via trach, T: 100.0 @midnight, hypertensive. 01/01 No events overnight. Afebrile. 01/04: Remains on mechanical ventilation via tracheostomy. Awaiting transfer to LTAC Objective Vital Signs Date Time Temp Pulse Resp B/P (MAP) Pulse Ox O2 Delivery O2 Flow Rate FiO2 01/04/18 12:00 86 01/04/18 12:00 98.1 16 126/61 (82) 99 01/04/18 12:00 30 Intake and Output 01/04/18 01/04/18 01/05/18 08:00 16:00 00:00 Intake Total 500 ml Output Total 250 ml Balance 250 ml Result Diagram: 01/03/18 0417 01/02/18 0325 Other Results Microbiology Date/Time Source Procedure Growth Status 01/02/18 00:00 Sputum Endotracheal Gram Stain - Final Complete 01/02/18 00:00 Sputum Culture - Final S. Aureus Mrsa Complete Imaging Last Impressions Chest X-Ray 12/31/17 0000 Signed Impressions: Service Date/Time: December 07:37 - CONCLUSION: No significant change has occurred. Philippe Peters MD Abdomen/Pelvis CT 12/22/17 0000 Signed Impressions: Service Date/Time: Friday, December 22, 2017 12:13 - CONCLUSION: 1. There is diffuse prominent body anasarca 2. Small amount of free fluid deep in the pelvis with edema throughout the mesenteric fat. This is most likely related to patient's anasarca. 3. Bilateral pleural effusions. 4. Left ovarian cyst measuring 1.6 cm. 5. Gastrostomy tube in the stomach. Chinmay Espinoza MD Liver Ultrasound 12/11/17 0000 Signed Impressions: Service Date/Time: Monday, December 11, 2017 13:59 - CONCLUSION: 1. Liver is prominent with no focal mass lesions or fatty infiltration. 2. Trace fluid about the liver. 3. Bilateral pleural effusions. Mahendra Poe MD Chest CT 12/04/17 1154 Signed Impressions: Service Date/Time: Monday, December 04, 2017 12:43 - CONCLUSION: Probable mild congestive failure with trace pleural effusions. No evidence for mass. Jean-Paul Hoffmann MD FACR Head CT 12/04/17 1126 Signed Impressions: Service Date/Time: Monday, December 04, 2017 12:37 - CONCLUSION: Stable brain appearance. No acute intracranial findings Anam Rojas MD Neck Magnetic Resonance Angiography 12/04/17 0000 Signed Impressions: Service Date/Time: Monday, December 04, 2017 20:36 - CONCLUSION: 1. Mild plaque at the right carotid bulb/proximal internal carotid artery without significant stenosis. 2. Significant opacification of the aortic arch and origins of the great vessels is not present. These areas cannot be evaluated. Anam Donis MD Head Magnetic Resonance Angiography 12/04/17 0000 Signed Impressions: Service Date/Time: Monday, December 04, 2017 20:36 - CONCLUSION: No acute disease. Anam Donis MD Brain MRI 12/04/17 0000 Signed Impressions: Service Date/Time: Monday, December 04, 2017 20:36 - CONCLUSION: 1. Small punctate areas of signal abnormality in the posterior left temporal lobe which may represent small focal areas of acute infarction. 2. Several areas of signal abnormality in the basal ganglia and left posterior temporal lobes likely from prior hemorrhage. 3. Demyelination within the cerebral and pontine white matter likely from small vessel ischemic change. Anam Donis MD Objective Remarks General - Elderly female who is sitting up in [facility] bed on mechanical ventilation via trach. HEENT - Pupils equal, 2mm and reactive, sclerae anicteric, 8.[address]. Trach sutures have been removed. CV - sinus on the monitor with rate in 70s. 2/6 systolic murmur LSB RESP - breathing comfortably on mechanical ventilation via trach, minimal secretions with suctioning. Abdomen - soft, nontender, nondistended, BS active, tolerating tube feeds, PEG tube - exit site clean without bleeding. : Purewick urinary collection system in place with yellow output. SKIN: ~2 cm nonstageable decub ulcer on L buttocks overlying ischial tuberosity. Extremities - warm, trace edema all extremities, + peripheral pulses, NEURO: Awakens to voice. Eyes open and makes eye contact. Squeezes hands bilaterally and moves feet bilaterally to command. She is generally weak. A/P Problem List: (1) Acute metabolic encephalopathy ICD Code: G93.41 - Metabolic encephalopathy Status: Acute (2) Paroxysmal atrial fibrillation with rapid ventricular response ICD Code: I48.0 - Paroxysmal atrial fibrillation Status: Resolved (3) Lactic acidemia ICD Code: E87.2 - Acidosis Status: Resolved (4) Cardiomyopathy ICD Code: I42.9 - Cardiomyopathy, unspecified Status: Chronic (5) Non-ST elevation [place] (NSTEMI) ICD Code: I21.4 - Non-ST elevation (NSTEMI) myocardial infarction Status: Acute (6) Severe sepsis ICD Code: A41.9 - Sepsis, unspecified organism; R65.20 - Severe sepsis without septic shock Status: Resolved (7) Altered mental status ICD Code: R41.82 - Altered mental status, unspecified Status: Resolved (8) Hypertension ICD Code: I10 - Hypertension Status: Chronic (9) LAI (acute kidney injury) ICD Code: N17.9 - Acute kidney failure, unspecified Status: Acute (10) Metabolic acidosis ICD Code: E87.2 - Acidosis Status: Acute Assessment and Plan Neuro/Psych: Acute encephalopathy - improved 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 PT/OT. CV: A. fib with RVR -currently in sinus rhythm Nonischemic cardiomyopathy, with reduced EF History of diastolic heart failure 03/30 NSTEMI Moderate MR History of essential hypertension Monitor HR and BP keep MAP>65mmHg On Hydralazine 50mg Q8, Lopressor 50mg Q12, Cardizem 60mg Q6 Echocardiogram 12/05/17 revealed EF 55%. Bilateral atrial enlargement. Pulmonary arterial pressure 33 mmHg Previous echocardiogram 2013 revealed EF 55-60%. Grade 1 diastolic dysfunction. Continue atorvastatin 10 mg at night, ASA 81mg daily, Eliquis 5mg BID Resp: Acute respiratory failure -status post tracheostomy 12/[address] Flor Removed trach sutures 01/02. CPAP trials daily and transition to tpiece when tolerated. Bronchodilators, Vent bundle Pulm toilet, trach care GI: Status post PEG tube placement -Dr. Mendes 12/17 Hypoalbuminemia Acute blood loss anemia Hemorrhage around the PEG tube site, resolved 12/23/[address] Mccormick (due to bleeding at PEG site) - normal esophagus. Normal duodenal mucosa. Single ulcer 5-9 mm in the gastric body. Submucosal injection of 3 mL's of epinephrine was performed. On pantoprazole twice daily Tube feeds - Jevity 1.5@ 50 cc an hour per nutrition recommendations Docusate sodium/senna 1 tablet twice daily for bowel regimen FEN/RENAL: History of hematuria, resolved Purewick catheter in place. Monitor renal function, I/O's, electrolytes replacement per protocol Endo: Euglycemic Heme: Normocytic anemia Transfused 1 unit PRBC on 01/02 for Hgb 6.9. Does not have apparent active bleeding, drifted from hgb 7.2. Now 7.9 this morning. Monitor CBC On Apixaban 5mg BID ID: Fever - temp 101.1 overnight just after midnight on 01/02. Repeat blood and urine cultures negative. Sputum culture with MRSA. ID windows consultant, Dr. Morris evaluated 01/02 and 01/03 and recommended continue to watch off antibiotics. She states that MRSA in sputum and Urine enterococcus and amy are likely colonization rather than infection. Patient is afebrile without leukocytosis and stable FiO2 requirement, no change in resp secretions. Recommends close clinical monitoring and initiate antibiotics if clinical change including leukocytosis, fever, change in respiratory status. urine cx from 12/29: Group D enterococcus, Amy Albicans. Received zosyn 01/01 , fluconazole 01/01 , vanc 12/31-01/01. Repeat urine culture 01/01 was negative. CXR Previously was evaluated by Dr. Amaro suspected aspiration pneumonia.. LP/ cultures also see no growth. Rocephin discontinued 12/08 and has been off continuous antibiotics since then aside from the empirc doses mentioned before. Blood cultures 12/12 revealed staph epi likely contaminant. MSK: PT evaluate and treat. OT consult. Access -Utilize peripheral IV. Prophylaxis -GI -Protonix 40mg IV q12 hours daily. -DVT -SCD, Eliquis 5mg BID Patient awaiting transfer to [facility]. Daughter aware. Problem Qualifiers (1) Altered mental status: (2) Hypertension: Qualified Codes: I10 - Essential (primary) hypertension Naif Amaro MD January 04, 2018 14:03
== END 2018-01-04 14:49 | DRG 4 ==
LOC: PHED 11:24 → PHEDA 13:53 → HIMW 16:45 → HIME 01-03 03:03
PROVIDERS: ADMIT Internal Medicine Critical Care Medicine; ATTEND Internal Medicine Critical Care Medicine
PROC: 5A1955Z Respiratory Ventilation, Greater than 96 Consecutive Hours (ICD-10-PCS; 2017-12-04)
PROC: 009U3ZX Drainage of Spinal Canal, Percutaneous Approach, Diagnostic (ICD-10-PCS; 2017-12-04)
PROC: 0BH17EZ Insertion of Endotracheal Airway into Trachea, Via Natural or Artificial Opening (ICD-10-PCS; 2017-12-04)
PROC: 02HV33Z Insertion of Infusion Device into Superior Vena Cava, Percutaneous Approach (ICD-10-PCS; 2017-12-05)
PROC: 0DH63UZ Insertion of Feeding Device into Stomach, Percutaneous Approach (ICD-10-PCS; 2017-12-17)
PROC: 0DB78ZX Excision of Stomach, Pylorus, Via Natural or Artificial Opening Endoscopic, Diagnostic (ICD-10-PCS; 2017-12-17)
PROC: 0BJ08ZZ Inspection of Tracheobronchial Tree, Via Natural or Artificial Opening Endoscopic (ICD-10-PCS; 2017-12-17)
PROC: 0B113F4 Bypass Trachea to Cutaneous with Tracheostomy Device, Percutaneous Approach (ICD-10-PCS; principal; 2017-12-17 10:40)
PROC: 30233K1 Transfusion of Nonautologous Frozen Plasma into Peripheral Vein, Percutaneous Approach (ICD-10-PCS; 2017-12-22)
PROC: 30233M1 Transfusion of Nonautologous Plasma Cryoprecipitate into Peripheral Vein, Percutaneous Approach (ICD-10-PCS; 2017-12-22)
PROC: 30233N1 Transfusion of Nonautologous Red Blood Cells into Peripheral Vein, Percutaneous Approach (ICD-10-PCS; 2017-12-23)
PROC: 3E0G8GC Introduction of Other Therapeutic Substance into Upper GI, Via Natural or Artificial Opening Endoscopic (ICD-10-PCS; 2017-12-23)
DX: A41.9 Sepsis, unspecified organism (principal); I63.512 Cerebral infarction due to unspecified occlusion or stenosis of left middle cerebral artery; I21.4 Non-ST elevation (NSTEMI) myocardial infarction; K72.00 Acute and subacute hepatic failure without coma; J69.0 Pneumonitis due to inhalation of food and vomit; G93.41 Metabolic encephalopathy; R57.9 Shock, unspecified; N17.9 Acute kidney failure, unspecified; K25.4 Chronic or unspecified gastric ulcer with hemorrhage; J96.00 Acute respiratory failure, unspecified whether with hypoxia or hypercapnia; E87.2 Acidosis; R47.01 Aphasia; G81.91 Hemiplegia, unspecified affecting right dominant side; I50.32 Chronic diastolic (congestive) heart failure; D62 Acute posthemorrhagic anemia; I42.0 Dilated cardiomyopathy; R13.10 Dysphagia, unspecified; I48.0 Paroxysmal atrial fibrillation; J44.9 Chronic obstructive pulmonary disease, unspecified; I11.0 Hypertensive heart disease with heart failure; F17.210 Nicotine dependence, cigarettes, uncomplicated; R65.20 Severe sepsis without septic shock; E11.9 Type 2 diabetes mellitus without complications; K29.50 Unspecified chronic gastritis without bleeding; E88.09 Other disorders of plasma-protein metabolism, not elsewhere classified; F41.9 Anxiety disorder, unspecified; K94.21 Gastrostomy hemorrhage; I08.3 Combined rheumatic disorders of mitral, aortic and tricuspid valves; Z66 Do not resuscitate; R00.0 Tachycardia, unspecified; R00.1 Bradycardia, unspecified; R31.9 Hematuria, unspecified; Z79.82 Long term (current) use of aspirin; Z86.73 Personal history of transient ischemic attack (TIA), and cerebral infarction without residual deficits
CPT/HCPCS: 31500; 31600; 31624; 36430; 36556; 36600; 36620; 51702; 62270; 70450; 70544; 70548; 70551; 71045; 71260; 74176; 76705; 76937; 80048; 80053; 80074; 80307; 81001; 82140; 82550; 82552; 82570; 82607; 82746; 82805; 82945; 82948; 83605; 83735; 84100; 84132; 84157; 84300; 84484; 85007; 85014; 85018; 85025; 85027; 85384; 85610; 85730; 86403; 86850; 86900; 86901; 86920; 86927; 86965; 87015; 87040; 87070; 87077; 87086; 87102; 87116; 87147; 87186; 87205; 87206; 87493; 87529; 87641; 87804; 88108; 88305; 88312; 89051; 93005; 93306; 94002; 94003; 94640; 94664; 95819; 96361; 96365; 96367; A7521; A9579; C9113; J0131; J0133; J0171; J0282; J0290; J0456; J0690; J0696; J1160; J1644; J1940; J2250; J2270; J2543; J3010; J3370; J3411; J3475; J3480; J7030; J7040; J7050; J7070; J7120; J7613; P9016; P9017; P9047; Q9967

== ENCOUNTER → 2018-02-10 | Outpatient (CLI) | payer MEDICARE, OTHER ==
[~2018-02-10] MED LIST changes: +APIX5TAB PEG; +ASPI81 NG; -ASPI81 PO; +Albuterol Neb NEB; +DILT60TA33 PO; +HYDR-3516 PO; -HYDR-3533 PO; +HYDR-3800 PO; -LISI-363 PO; -LOVA20TA PO; +METO-309 PO; +MORP4INJ3 IV PUSH; +Nystatin Powder TOPICAL; +Oral Hygiene Kit OROPHARYNG; +PANT40P IV PUSH; +SERO25TA PO; -VITA100020 PO; +XANA1TAB2 PO
[2018-02-10 10:49] LABS: ALT (GPT) 18 U/L (10-53); AST (GOT) 11 U/L (15-37); BLOOD UREA NITROGEN 18 MG/DL (7-18); CALCIUM 9.5 MG/DL (8.5-10.1); CHLORIDE 102 MEQ/L (98-107); CHOLESTEROL 176 MG/DL (120-200); CREATININE 0.93 MG/DL (0.50-1.00); GLOMERULAR FILTRATION RATE 59 ML/MIN (>89); GLUCOSE,FASTING 93 MG/DL (74-99); SODIUM (NA) 135 MEQ/L (136-145); TRIGLYCERIDES 123 MG/DL (42-150)
[2018-02-10 10:51] LABS: ALKALINE PHOSPHATASE 114 U/L (45-117); CHOLESTEROL/ HDL RATIO 3.51 RATIO; HDL CHOLESTEROL 50.1 MG/DL (40.0-60.0); LDL CHOLESTEROL 101 MG/DL (0-99); TOTAL BILIRUBIN ADULT 0.9 MG/DL (0.2-1.0); TOTAL PROTEIN 7.4 GM/DL (6.4-8.2)
[2018-02-10 10:54] LABS: AUTOMATED NEUTROPHIL # 10.5 TH/MM3 (1.8-7.7); BASOPHIL # 0.1 TH/MM3 (0-0.2); BASOPHIL % 0.5 % (0.0-2.0); EOSINOPHIL # 0.2 TH/MM3 (0-0.4); EOSINOPHIL % 1.7 % (0.0-4.0); HEMATOCRIT 30.1 % (35.0-46.0); HEMOGLOBIN 9.9 GM/DL (11.6-15.3); LYMPH % 6.3 % (9.0-44.0); LYMPHOCYTE # 0.8 TH/MM3 (1.0-4.8); MEAN CELL VOLUME 81.4 FL (80.0-100.0); MEAN CORPUSCULAR HEMOGLOBIN 26.9 PG (27.0-34.0); MEAN CORPUSCULAR HGB CONC 33.1 % (32.0-36.0); MEAN PLATELET VOLUME 8.5 FL (7.0-11.0); MONO % 6.3 % (0.0-8.0); MONOCYTE # 0.8 TH/MM3 (0-0.9); NEUT % 85.2 % (16.0-70.0); PLATELET COUNT 220 TH/MM3 (150-450); RED CELL DISTRIBUTION WIDTH 17.7 % (11.6-17.2); WHITE BLOOD COUNT 12.3 TH/MM3 (4.0-11.0)
== END ==
LOC: PLAB 06:36
PROVIDERS: ATTEND Family Medicine
DX: I10 Essential (primary) hypertension (principal); I69.90 Unspecified sequelae of unspecified cerebrovascular disease; E78.5 Hyperlipidemia, unspecified
CPT/HCPCS: 36415; 80053; 80061; 85025